=== PATIENT | male | born 1970 | race American Indian/Alaskan Native ===

== ENCOUNTER 2020-09-20 22:44 | Inpatient (IN) | payer MEDICAID, OTHER ==
[2020-09-20] MEDS ORDERED: SODIUM CHLORIDE 0.9% 1000 ML 1,000 ML IV ONE (22:58)
--- NOTE | 2020-09-20 22:58 | Emergency Department Report ---
ED CPR HPI - General Stated Complaint: CARDIAC ARREST Time Seen by Provider: 09/20/20 22:44 Source: EMS Mode of arrival: Stretcher Limitations: Altered Mental Status, Physical Limitation - History of Present Illness Initial Comments: Patient is a 50-year-old male that presents emergency room in cardiac arrest. Patient brought in by EMS. EMS states that approximately 45 minutes prior to arrival the patient collapsed in his bathroom after grabbing his chest. Patient has a cardiac history. Patient was intubated by EMS. EMS gave multiple rounds of medications. CPR was started approximately 10 minutes after the patient collapsed. MD Complaint: stopped breathing Place: home Bystander CPR Performed: No AED Applied by Bystander/Mobile Sales Consultant: No Shock Advised: No Initial Findings in the Field: unresponsive, no respirations, no pulse ROSC in the Field: No Associated Injuries: No Associated Symptoms: chest pain Treatments Prior to Arrival: intubation, BMV, chest compressions, epinephrine mgs #, sodium bicarbonate - Related Data Home Medications Medication Instructions Recorded Confirmed Last Taken Furosemide [Lasix] 40 mg PO QDAY 09/21/20 09/21/20 Unknown Simvastatin 20 mg PO QDAY 09/21/20 09/21/20 Unknown amLODIPine [Norvasc] 5 mg PO DAILY 09/21/20 09/21/20 Unknown carvediloL [Coreg] 25 mg PO BID 09/21/20 09/21/20 Unknown lisinopriL [Zestril TAB] 40 mg PO QDAY 09/21/20 09/21/20 Unknown Allergies Allergy/AdvReac Type Severity Reaction Status Date / Time No Known Allergies Allergy Unverified 09/20/20 23:08 ED Review of Systems ROS: Stated complaint: CARDIAC ARREST Other details as noted in HPI Comment: Unobtainable due to pts medical conditions ED Past Medical Hx - Past Medical History Previous Medical History?: Yes Hx Hypertension: Yes Hx Congestive Heart Failure: Yes - Surgical History Past Surgical History?: No - Family History Family history: no significant - Social History Smoking Status: Unknown if ever smoked Substance Use Type: None - Medications Home Medications: Home Medications Medication Instructions Recorded Confirmed Last Taken Type Furosemide [Lasix] 40 mg PO QDAY 09/21/20 09/21/20 Unknown History Simvastatin 20 mg PO QDAY 09/21/20 09/21/20 Unknown History amLODIPine [Norvasc] 5 mg PO DAILY 09/21/20 09/21/20 Unknown History carvediloL [Coreg] 25 mg PO BID 09/21/20 09/21/20 Unknown History lisinopriL [Zestril TAB] 40 mg PO QDAY 09/21/20 09/21/20 Unknown History ED Physical Exam - General Limitations: Altered Mental Status, Physical Limitation General appearance: other - Head Head exam: Present: atraumatic, normocephalic - Eye Eye exam: Present: other (Pupils fixed and dilated) - Respiratory Respiratory exam: Present: other (Patient intubated by EMS and placement verified with bilateral breath sounds.) - Cardiovascular Cardiovascular Exam: Present: other (No pulse noted) - GI/Abdominal GI/Abdominal exam: Present: soft - Rectal Rectal exam: Present: deferred - Extremities Exam Extremities exam: Present: normal inspection - Psychiatric Psychiatric exam: Present: normal affect - Skin Skin exam: Present: warm, dry, intact. Absent: rash ED Course Vital Signs 09/20/20 09/20/20 09/20/20 22:50 23:00 23:10 Pulse Rate 111 H 40 L 127 H Respiratory 31 H 20 18 Rate Blood Pressure 118/97 140/115 94/57 O2 Sat by Pulse 100 100 Oximetry 09/20/20 09/20/20 09/20/20 23:21 23:30 23:41 Pulse Rate 116 H 131 H 131 H Respiratory 10 L 11 L 13 Rate Blood Pressure 41/24 54/36 63/32 O2 Sat by Pulse 99 Oximetry 09/20/20 09/20/20 09/21/20 23:46 23:51 00:01 Pulse Rate 132 H 133 H 139 H Respiratory 15 16 Rate Blood Pressure 56/37 56/37 O2 Sat by Pulse 100 100 Oximetry 09/21/20 09/21/20 09/21/20 00:11 00:21 00:31 Pulse Rate 132 H 144 H 141 H Respiratory 17 20 19 Rate Blood Pressure 56/37 56/37 64/31 O2 Sat by Pulse 80 L 90 76 L Oximetry 09/21/20 09/21/20 09/21/20 00:41 00:51 01:01 Pulse Rate 138 H 136 H 134 H Respiratory 21 22 18 Rate Blood Pressure 118/49 103/81 158/93 O2 Sat by Pulse 64 L 68 L 40 L Oximetry 09/21/20 09/21/20 09/21/20 01:10 01:21 01:30 Pulse Rate 130 H 129 H 120 H Respiratory 27 H 25 H 26 H Rate Blood Pressure 213/160 186/76 173/136 O2 Sat by Pulse 100 92 Oximetry 09/21/20 09/21/20 09/21/20 01:41 01:51 02:00 Pulse Rate 113 H 100 H 103 H Respiratory 27 H 27 H 28 H Rate Blood Pressure 86/58 120/77 103/72 O2 Sat by Pulse 98 98 100 Oximetry 09/21/20 09/21/20 09/21/20 02:11 02:20 02:31 Pulse Rate 106 H 105 H 105 H Respiratory 25 H 27 H 27 H Rate Blood Pressure 76/57 102/76 102/81 O2 Sat by Pulse 100 Oximetry 09/21/20 09/21/20 09/21/20 02:40 02:50 03:00 Pulse Rate 102 H 105 H 101 H Respiratory 28 H 28 H 29 H Rate Blood Pressure 124/91 117/95 133/89 O2 Sat by Pulse Oximetry 09/21/20 03:11 Pulse Rate 106 H Respiratory 27 H Rate Blood Pressure 127/91 O2 Sat by Pulse 97 Oximetry - Reevaluation(s) Reevaluation #1: Patient arrived via EMS. Prior to arrival, a radio report was received from EMS. [id number] report received again from EMS. Patient intubated by EMS. Patient was transferred to our stretcher, CPR was continued. Patient was given epi and calcium. 09/20/20 22:41 Patient has spontaneous return of circulation. Code ran in accordance with ACLS guidelines. See code note. 09/20/20 22:45 Reevaluation #2: Patient went into cardiac arrest again. Patient given epi. 09/20/20 23:03 Patient had spontaneous return of circulation. Patient placed on a Levophed drip. 09/20/20 23:05 Reevaluation #3: Patient has a pulse. Patient blood pressure still low. Patient was placed on epi drip. Patient is on maxed Levophed 09/20/20 23:18 Reevaluation #4: Patient's blood pressure still low. Patient on dopamine drip and Levophed and epi. Ulysses-Synephrine will be added. 09/20/20 23:35 Reevaluation #5: Patient's blood pressure is still low but patient is maxed out on 4 drips. 09/21/20 00:01 Patient to be admitted to the hospitalist service. 09/21/20 00:29 Dobutamine was never started. Patient blood pressure started to improve. Patient will have a central line placed. I discussed case with family. Family updated with situation. 09/21/20 02:04 - Consultations Consultation #1: Hospitalist consulted for admission. Hospitalist to admit patient. 09/21/20 00:30 - Central Line Placement Right Femoral Consent Obtained: emergent situation Time Out Performed: Yes Patient Placed on Monitor/Pulse Ox: Yes Prep: mask, gown, gloves Central Line Prep: Chlorhexidine scrub, sterile drapes applied Ultrasound Used for Placement: Yes Central Line Lumen Inserted: triple Reason for Insertion: Emergency Venous Access Bloods Obtained for Lab: Yes Central Line Position: good blood return, all ports aspirated, flus, sutured in place with 2-0 Dressing Applied: Tegaderm Patient Tolerated Procedure: well, no complications Complications: none Additional Comments: Central Venous Line Placement: Indication: Hemodynamic monitoring/Intravenous access A time-out was completed verifying correct patient, procedure, site, positioning, and special equipment if applicable. The patient was placed in a dependent position appropriate for central line placement based on the vein to be cannulated. The patients right groin was prepped and draped in sterile fashion. An ultrasound was used in a sterile fashion to identify vasculature. A triple lumen Cordis catheter was introduced into the the common femoral vein using the Seldinger technique and under ultrasound guidance. The catheter was threaded smoothly over the guide wire and appropriate blood return was obtained. Each lumen of the catheter was evacuated of air and flushed with sterile saline. The catheter was then sutured in place to the skin and a sterile dressing applied. Perfusion to the extremity distal to the point of catheter insertion was checked and found to be adequate. Estimated Blood Loss: minimal The patient tolerated the procedure well and there were no complications. - IO Right Tibia Consent Obtained: emergent situation Time Out Performed: Yes IO Instrument Used to Penetrate the Cortex: battery powered IO drill Patient Tolerated Procedure: well, no complications Complications: none ED Medical Decision Making - Lab Data Result diagrams: 09/20/20 23:02 09/20/20 23:02 - EKG Data -: EKG Interpreted by Me EKG shows normal: sinus rhythm, axis, intervals, QRS complexes, ST-T waves Rate: tachycardia - Radiology Data Radiology results: report reviewed, image reviewed interpreted by me: First chest x-ray: No pneumonia, no pneumothorax, ET tube high., no osseous findings, CHEST 1 VIEW INDICATION / CLINICAL INFORMATION: Chest Pain. COMPARISON: None available. FINDINGS: SUPPORT DEVICES: The tip of the endotracheal tube is high within the trachea, approximately 11 cm above the level of the gregorio. HEART / MEDIASTINUM: Borderline heart size. LUNGS / PLEURA: No significant pulmonary or pleural abnormality. No pneumothorax. ADDITIONAL FINDINGS: No significant additional findings. IMPRESSION: 1. Endotracheal tube high within the trachea. Recommend advancement by approximately 6-8 cm for more optimal positioning. CHEST 1 VIEW INDICATION / CLINICAL INFORMATION: et. COMPARISON: Chest radiograph one day prior FINDINGS: SUPPORT DEVICES: The endotracheal tube has been slightly advanced, with the tip now terminating 8 cm above the level of the gregorio. HEART / MEDIASTINUM: Stable. LUNGS / PLEURA: No significant pulmonary or pleural abnormality. No pneumothorax. ADDITIONAL FINDINGS: No significant additional findings. IMPRESSION: 1. Endotracheal tube now terminates 8 cm above the level of the gregorio. This could be advanced another 3 cm for more optimal positioning. - Medical Decision Making Patient is a 50-year-old male who presents emergency room for cardiac arrest. Patient had spontaneous return of circulation in the ER. Patient arrested again and again had spontaneous return of circulation. Code ran accordance with ACLS guidelines. See code notes. Patient had labs done which were consistent with UTI and renal failure. Patient given fluids. Patient also required pressors. Patient's blood pressure eventually improved on pressors and a central line was placed. Prior to central line, for emergency access a right IO was placed in the tibia. Family updated with scenario throughout the stay in the ER. Patient admitted to the hospital service for further evaluation treatment. Critical care time documented due to the multiple reassessments, prolonged time at the bedside, interpretation of diagnostics and labs. - Differential Diagnosis Cardiac arrest, PR, PE, hypotension, respiratory failure, Critical Care Time: Yes Critical care time in (mins) excluding proc time.: 80 Critical care attestation.: If time is entered above; I have spent that time in minutes in the direct care of this critically ill patient, excluding procedure time. Critical Care Time: 80 minutes ED Disposition Clinical Impression: Cardiac arrest Hypotension Qualifiers: Hypotension type: unspecified hypotension type Qualified Code(s): I95.9 - Hypotension, unspecified Renal failure Qualifiers: Renal failure chronicity: acute Acute renal failure type: unspecified Qualified Code(s): N17.9 - Acute kidney failure, unspecified Respiratory failure Qualifiers: Chronicity: acute Respiratory failure complication: hypoxia Qualified Code(s): J96.01 - Acute respiratory failure with hypoxia UTI (urinary tract infection) Qualifiers: Urinary tract infection type: acute cystitis Hematuria presence: with hematuria Qualified Code(s): N30.01 - Acute cystitis with hematuria Disposition: OP ADMIT IP TO THIS HOSP Is pt being admited?: Yes Does the pt Need Aspirin: No Condition: Critical Time of Disposition: 01:13
[2020-09-20] MEDS ORDERED: MINERAL OIL/PETROLATUM, WHITE OPHTH OINT 3.5 GM OU PRN (22:59)
[2020-09-20] MEDS ORDERED: LIP THERAPY VASELINE TP PRN (22:59)
[2020-09-20] MEDS ORDERED: NORepinephrine/NS 4 MG-250 ML 4 MG/250 ML BAG IV ONE (23:08)
[2020-09-20] MEDS ORDERED: EPINEPHrine 1 MG/1 ML 8 MG in SODIUM CHLORIDE 0.9% 250ML 242 ML IV ONE (23:08)
[2020-09-20] MEDS: NORepinephrine/NS 4 MG-250 ML 4 MG/250 ML BAG IV SCH (23:12)
[2020-09-20] MEDS: ASPIRIN 300 MG RECT SUPP PR ONE (23:16)
[2020-09-20 23:26] LABS: Hematocrit 41.9 % (35.5-45.6); Hemoglobin 13.6 gm/dl (11.8-15.2); Mean Corpuscular HGB Conc 33 % (32-34); Mean Corpuscular Volume 96 fl (84-94); Platelet Count 157 K/mm3 (140-440); Red Blood Count 4.38 M/mm3 (3.65-5.03); Red Cell Distribution Width 15.8 % (13.2-15.2)
[2020-09-20] MEDS ORDERED: DOPamine/D5W 800 MG/250 ML 800 MG/250 ML BAG IV ONE (23:31)
[2020-09-20] MEDS ORDERED: PHENYLEPHRINE 100 MG in SODIUM CHLORIDE 0.9% 90 ML IV ONE (23:33)
[2020-09-20 23:39] LABS: INR 1.14 (0.87-1.13)
[2020-09-20 23:40] LABS: Partial Thromboplastin Time 27.7 Sec. (24.2-36.6)
[2020-09-20 23:45] LABS: Albumin 4.1 g/dL (3.9-5); Calcium 10.3 mg/dL (8.4-10.2)
[2020-09-21] MEDS: ASPIRIN 300 MG RECT SUPP PR ONE (00:03)
--- NOTE | 2020-09-21 00:25 | XRay Report ---
CHEST 1 VIEW INDICATION / CLINICAL INFORMATION: Chest Pain. COMPARISON: None available. FINDINGS: SUPPORT DEVICES: The tip of the endotracheal tube is high within the trachea, approximately 11 cm abo ve the level of the gregorio. HEART / MEDIASTINUM: Borderline heart size. LUNGS / PLEURA: No significant pulmonary or pleural abnormality. No pneumothorax. ADDITIONAL FINDINGS: No significant additional findings. IMPRESSION: 1. Endotracheal tube high within the trachea. Recommend advancement by approximately 6-8 cm for more optimal positioning. Signer Name: Miriam Arroyo MD Signed: 09/21/2020 12:20 AM Workstation Name: [email or web address]
[2020-09-21] MEDS ORDERED: DOBUTamine/D5W 500 MG/250 ML 500 MG/250 ML BAG IV ONE (00:35)
[2020-09-21 00:46] LABS: Cannabinoid Screen,Urine PRESUMPTIVE POSITIVE
[2020-09-21 00:50] LABS: Bacteria,Urine 2+ /HPF (Negative); Bilirubin,Urine NEG (Negative); Blood,Urine LG (Negative); Color,Urine Yellow (Yellow); Mucus,Urine FEW /HPF; Sperm,Urine 1+ /HPF (NP); Urobilinogen,Urine < 2.0 mg/dL (<2.0)
[2020-09-21 00:51] LABS: Protein,Urine >500 mg/dL (Negative)
[2020-09-21] MEDS ORDERED: SODIUM CHLORIDE 0.9% 1000 ML 1,000 ML IV ONE (01:04)
[2020-09-21] MEDS ORDERED: cefTRIAXone/NS 2 GM/100 ML 2 GM/100 ML BAG IV ONE (01:10)
[2020-09-21 01:22] LABS: Total Cells Counted 100
[2020-09-21 01:23] LABS: RBC Morphology Normal
[2020-09-21] MEDS ORDERED: ONDANSETRON 4 MG/2 ML INJ IV PRN (01:24)
[2020-09-21] MEDS ORDERED: SODIUM CHLORIDE 0.9% 1000 ML 1,000 ML IV SCH ×2 (01:30→11:15)
--- NOTE | 2020-09-21 01:35 | History and Physical Report ---
History of Present Illness Date of examination: 09/21/20 Date of admission: 09/21/2020 Chief complaint: Cardiac Arrest History of present illness: 50-year-old -[place] male brought to the emergency room today by EMS in cardiac arrest. Patient was said to have collapsed in the bathroom after grabbing his chest about 45 minutes prior to arrival in the emergency room. He is known to have history of hypertension. Patient unable to give any history as he is currently intubated and sedated. Upon arrival in the emergency room patient was found to be hypotensive and was subsequently started on pressors with significant improvement in his blood pressure. Work-up in the emergency room reveals a lactic acidosis of 8.7, initial troponin was within normal limits at 0.023 however subsequent troponin level was elevated at 0.865. No obvious ischemic changes on EKG. UDS was positive for marijuana. Urinalysis was significant for UTI. BUN and creatinine was elevated at 26 and 2.1. Patient currently intubated and admitted into the intensive care unit status post cardiac arrest, UTI, JAMEY, hypotension and lactic acidosis. Past History Past Medical History: heart failure, hypertension Past Surgical History: Other (Unknown) Social history: other (Unknown) Family history: other (Unknown) Medications and Allergies Allergies Allergy/AdvReac Type Severity Reaction Status Date / Time No Known Allergies Allergy Unverified 09/20/20 23:08 Home Medications Medication Instructions Recorded Confirmed Last Taken Type Furosemide [Lasix] 40 mg PO QDAY 09/21/20 09/21/20 Unknown History Simvastatin 20 mg PO QDAY 09/21/20 09/21/20 Unknown History amLODIPine [Norvasc] 5 mg PO DAILY 09/21/20 09/21/20 Unknown History carvediloL [Coreg] 25 mg PO BID 09/21/20 09/21/20 Unknown History lisinopriL [Zestril TAB] 40 mg PO QDAY 09/21/20 09/21/20 Unknown History Active Meds: Active Medications Heparin Sodium (Porcine) (Heparin 5,000 Unit/1 Ml Vial) 5,000 unit SUB-Q Q8HR PATSY Hydrophilic Ointment (Lip Therapy Vaseline) 1 applic TP Q2HR PRN PRN Reason: Dry Lips Epinephrine 8 mg/ Sodium (Chloride) 250 mls @ 3.75 mls/hr IV TITR ONE; Protocol Stop: 09/23/20 17:47 Norepinephrine (Levophed Drip 4 Mg/Ns 250 Ml) 4 mg in 250 mls @ 7.5 mls/hr IV TITR PATSY; Protocol Phenylephrine HCl 100 mg/ (Sodium Chloride) 100 mls @ 3 mls/hr IV TITR ONE; Protocol Stop: 09/22/20 08:52 Dobutamine HCl/Dextrose (Dobutrex Drip 500mg/D5w 250ml) 500 mg in 250 mls @ 5.4 mls/hr IV TITR ONE; Protocol Stop: 09/22/20 22:52 Sodium Chloride (Nacl 0.9% 1000 Ml) 1,000 mls @ 999 mls/hr IV BOLUS ONE Stop: 09/21/20 02:04 Ceftriaxone Sodium (Rocephin/Ns 2 Gm/100 Ml) 2 gm in 100 mls @ 200 mls/hr IV ONCE ONE; Protocol Stop: 09/21/20 01:39 Sodium Chloride (Nacl 0.9% 1000 Ml) 1,000 mls @ 125 mls/hr IV DIRECT PATSY Multi-Ingred Cream/Lotion/Oil/Oint (Mineral Oil/Petrolatum, White Ophth Oint 3.5 Gm) 1 applic OU Q4HR PRN PRN Reason: Dry Eye(s) Ondansetron HCl (Ondansetron 4 Mg/2 Ml Inj) 4 mg IV Q8H PRN PRN Reason: Nausea And Vomiting Sodium Chloride (Sodium Chloride 0.9% 10 Ml Flush Syringe) 10 ml IV BID PATSY Sodium Chloride (Sodium Chloride 0.9% 10 Ml Flush Syringe) 10 ml IV PRN PRN PRN Reason: LINE FLUSH Review of Systems ROS unobtainable: due to endotracheal tube Exam - Constitutional Vitals: Temp Pulse Resp BP Pulse Ox 132 H 100 09/20/20 23:46 09/20/20 23:46 General appearance: Present: well-nourished, other (Intubated) - EENT Eyes: Present: PERRL, EOM intact. Absent: scleral icterus ENT: hearing intact, clear oral mucosa, dentition normal - Neck Neck: Present: supple, normal ROM - Respiratory Respiratory effort: normal Respiratory: bilateral: CTA - Cardiovascular Rhythm: regular Heart Sounds: Present: S1 & S2. Absent: gallop, systolic murmur, diastolic murmur, rub, click - Extremities Extremities: no ischemia, pulses intact, pulses symmetrical, No edema, Full ROM Peripheral Pulses: within normal limits - Abdominal General gastrointestinal: Present: soft, non-tender, non-distended, normal bowel sounds. Absent: mass - Integumentary Integumentary: Present: clear, warm, dry, normal turgor. Absent: rash - Musculoskeletal Musculoskeletal: strength equal bilaterally - Psychiatric Psychiatric: cooperative - Neurologic Neurologic: CNII-XII intact, no focal deficits, moves all extremities, other (Intubated and Sedated.) HEART Score - HEART Score Troponin: Troponin T 0.023 ng/mL (0.00-0.029) 09/20/20 23:02 Results - Labs CBC & Chem 7: 09/20/20 23:02 09/20/20 23:02 Labs: Abnormal lab results 09/20/20 09/20/20 09/20/20 Range/Units 23:02 23:02 23:02 MCV 96 H (84-94) fl RDW 15.8 H (13.2-15.2) % Seg Neuts % (Manual) 34.0 L (40.0-70.0) % Lymphocytes % (Manual) 57.0 H (13.4-35.0) % INR 1.14 H (0.87-1.13) Carbon Dioxide 21 L (22-30) mmol/L BUN 26 H (9-20) mg/dL Creatinine 2.1 H (0.8-1.3) mg/dL Glucose 227 H (75-100) mg/dL POC Glucose (70-105) mg/dL Calcium 10.3 H (8.4-10.2) mg/dL AST 59 H (5-40) units/L Urine WBC (Auto) (0.0-6.0) /HPF 09/20/20 09/20/20 Range/Units 23:15 23:35 MCV (84-94) fl RDW (13.2-15.2) % Seg Neuts % (Manual) (40.0-70.0) % Lymphocytes % (Manual) (13.4-35.0) % INR (0.87-1.13) Carbon Dioxide (22-30) mmol/L BUN (9-20) mg/dL Creatinine (0.8-1.3) mg/dL Glucose (75-100) mg/dL POC Glucose 197 H (70-105) mg/dL Calcium (8.4-10.2) mg/dL AST (5-40) units/L Urine WBC (Auto) 47.0 H (0.0-6.0) /HPF Assessment and Plan - Patient Problems (1) Cardiac arrest Current Visit: Yes Status: Acute Plan to address problem: Patient successfully resuscitated, intubated and sedated. Will monitor closely in the intensive care unit. Consult placed to cardiology and certified juvenile probation officer for further evaluation and recommendation. (2) Respiratory failure Current Visit: Yes Status: Acute Qualifiers: Chronicity: acute Respiratory failure complication: hypoxia Qualified Code(s): J96.01 - Acute respiratory failure with hypoxia Plan to address problem: Patient intubated and sedated. Will monitor ABG. (3) Hypotension Current Visit: Yes Status: Acute Qualifiers: Hypotension type: unspecified hypotension type Qualified Code(s): I95.9 - Hypotension, unspecified (4) Renal failure Current Visit: Yes Status: Acute Qualifiers: Renal failure chronicity: acute Acute renal failure type: unspecified Qualified Code(s): N17.9 - Acute kidney failure, unspecified Plan to address problem: Patient placed on IV fluid. Baseline BUN and creatinine unknown We will place consult to nephrology for evaluation. (5) UTI (urinary tract infection) Current Visit: Yes Status: Acute Qualifiers: Urinary tract infection type: acute cystitis Hematuria presence: with hematuria Qualified Code(s): N30.01 - Acute cystitis with hematuria Plan to address problem: Patient placed on empiric IV antibiotics. (6) DVT prophylaxis Current Visit: Yes Status: Acute Plan to address problem: Patient currently on anticoagulation. (7) Full code status Current Visit: Yes Status: Acute Plan to address problem: Patient is full code.
[2020-09-21 01:42] LABS: Amphetamine Screen,Urine PRESUMPTIVE NEGATIVE; Benzodiazepines Screen,Urine PRESUMPTIVE NEGATIVE; Cocaine Screen,Urine PRESUMPTIVE NEGATIVE; Methadone Screen,Urine PRESUMPTIVE NEGATIVE; Opiate Screen,Urine PRESUMPTIVE NEGATIVE
[2020-09-21 02:27] LABS: ABG Base Excess -8.8 mmol/L (-2.0-3.0); ABG HCO3 17.7 mmol/L (20.0-26.0); ABG Methemoglobin 0.6 % (0.0-1.5); ABG Oxygen Saturation 99.4 % (95.0-99.0); ABG PCO2 40.5 mm Hg; ABG PH 7.258 pH Units (7.350-7.450); ABG PO2 244.1 mm Hg (80.0-90.0)
--- NOTE | 2020-09-21 02:33 | XRay Report ---
CHEST 1 VIEW INDICATION / CLINICAL INFORMATION: et. COMPARISON: Chest radiograph one day prior FINDINGS: SUPPORT DEVICES: The endotracheal tube has been slightly advanced, with the tip now terminating 8 cm above the level of the gregorio. HEART / MEDIASTINUM: Stable. LUNGS / PLEURA: No significant pulmonary or pleural abnormality. No pneumothorax. ADDITIONAL FINDINGS: No significant additional findings. IMPRESSION: 1. Endotracheal tube now terminates 8 cm above the level of the gregorio. This could be advanced anothe r 3 cm for more optimal positioning. Signer Name: Miriam Arroyo MD Signed: 09/21/2020 2:29 AM Workstation Name: [id number]
[2020-09-21 03:30] LABS: Chol/HDL Ratio 2.53 %
[2020-09-21] MEDS: NORepinephrine/NS 4 MG-250 ML 4 MG/250 ML BAG IV SCH ×4 (04:00→11:01)
[2020-09-21] MEDS ORDERED: DEXTROSE 50% IN WATER (25GM) 50 ML SYRINGE IV ONE ×4 (04:28→08:10)
[2020-09-21] MEDS: HEPARIN 5,000 UNIT/1 ML VIAL SUB-Q SCH ×3 (04:50→21:40)
[2020-09-21] MEDS ORDERED: DOBUTamine/D5W 500 MG/250 ML 500 MG/250 ML BAG IV SCH (05:00)
[2020-09-21] MEDS ORDERED: NORepinephrine/NS 4 MG-250 ML 4 MG/250 ML BAG IV SCH (05:00)
[2020-09-21] MEDS ORDERED: PHENYLEPHRINE 100 MG in SODIUM CHLORIDE 0.9% 90 ML IV SCH (05:15)
[2020-09-21] MEDS ORDERED: HEPARIN 10,000 UNITS/10 ML VIAL IV PRN ×2 (06:14→09:52)
[2020-09-21] MEDS ORDERED: HEPARIN 10,000 UNITS/10 ML VIAL IV ONE (06:14)
--- NOTE | 2020-09-21 06:58 | Event Note ---
Date: 09/21/20 Attention called to patient who is on admission with cardiac arrest and currently intubated and whose troponin is trending up. Stat CT of the head was requested and will commence on heparin drip if negative. Consult placed to cardiology for evaluation and further recommendation. Will notify incoming hospitalist for follow-up.
[2020-09-21] MEDS ORDERED: HEPARIN/ 0.45% NACL DRIP 25,000 UNIT/500 ML BAG IV SCH ×2 (07:00→10:00)
[2020-09-21 07:39] LABS: Hematocrit 51.3 % (35.5-45.6); Hemoglobin 16.9 gm/dl (11.8-15.2)
[2020-09-21 07:50] LABS: INR 1.31 (0.87-1.13)
[2020-09-21 07:51] LABS: Partial Thromboplastin Time 32.3 Sec. (24.2-36.6)
--- NOTE | 2020-09-21 09:27 | Cat Scan Report ---
CT head/brain wo con INDICATION / CLINICAL INFORMATION: 50 years Male; Cardiac Arrest, Unresponsiveness.. TECHNIQUE: Routine CT head without contrast. All CT scans at this location are performed using CT dos e reduction for ALARA by means of automated exposure control. COMPARISON: None. FINDINGS: BRAIN / INTRACRANIAL CONTENTS: The motion degrades the image quality despite repeat imaging. However, there appears to be milder cerebral white matter disease with subtle foci of decreased attenuation a long the frontal and periventricular and subcortical regions at. The findings are nonspecific though may reflect microvascular angiopathy. The ventricular system is appropriate in size and configuration . There is no clear CT evidence of acute intrarenal hemorrhage or significant mass effect. There is motion artifact as noted above. However, the reyna-white matter differentiation along the remy glia capsular regions appears maintained. Furthermore, there is no clear evidence of significant sulc al effacement on the current exam. ORBITS: No significant abnormality of visualized orbits. SINUSES / MASTOIDS: The patient is intubated. There is near complete opacification of the left maxill elvi sinus at. Scattered opacification is seen within the remaining at paranasal sinuses. CRANIOCERVICAL JUNCTION: No significant abnormality. ADDITIONAL FINDINGS: None. IMPRESSION: 1. The motion degrades the image quality despite repeat imaging. However, there appears to be mild ce rebral white matter disease as described without CT evidence of acute intracranial hemorrhage. Signer Name: Nasim Carvajal MD Signed: 09/21/2020 9:22 AM Workstation Name: [id number]
[2020-09-21] MEDS ORDERED: ASPIRIN EC 325 MG TAB PO SCH (10:00)
[2020-09-21 10:14] LABS: Mean Corpuscular HGB Conc 33 % (32-34); Mean Corpuscular Volume 92 fl (84-94); Platelet Count 205 K/mm3 (140-440); Red Blood Count 5.31 M/mm3 (3.65-5.03); Red Cell Distribution Width 15.7 % (13.2-15.2)
[2020-09-21] MEDS: D5W/0.45% NACL 1,000 ML IV SCH (11:00)
[2020-09-21] MEDS: cefTRIAXone/NS 1 GM/50 ML 1 GM/50 ML BAG IV SCH (11:07)
--- NOTE | 2020-09-21 11:12 | Consultation ---
History of Present Illness - Reason for Consult Consult date: 09/21/20 acute renal failure - History of Present Illness 50-year-old -[place] male brought to the emergency room today by EMS in cardiac arrest. Patient was said to have collapsed in the bathroom after grabbing his chest about 45 minutes prior to arrival in the emergency room. He is known to have history of hypertension. Upon arrival in the emergency room patient was found to be hypotensive and was subsequently started on pressors with significant improvement in his blood pressure. now in the ICU, intubated and sedated, history obtained from chart. renal consult was requested for JAMEY Past History Past Medical History: heart failure, hypertension Past Surgical History: Other (Unknown) Social history: other (Unknown) Family history: other (Unknown) Medications and Allergies Allergies Allergy/AdvReac Type Severity Reaction Status Date / Time No Known Allergies Allergy Unverified 09/20/20 23:08 Home Medications Medication Instructions Recorded Confirmed Last Taken Type Furosemide [Lasix] 40 mg PO QDAY 09/21/20 09/21/20 Unknown History Simvastatin 20 mg PO QDAY 09/21/20 09/21/20 Unknown History amLODIPine [Norvasc] 5 mg PO DAILY 09/21/20 09/21/20 Unknown History carvediloL [Coreg] 25 mg PO BID 09/21/20 09/21/20 Unknown History lisinopriL [Zestril TAB] 40 mg PO QDAY 09/21/20 09/21/20 Unknown History Active Meds: Active Medications Aspirin (Aspirin Ec 325 Mg Tab) 325 mg PO QDAY [facility]SY Hydrophilic Ointment (Lip Therapy Vaseline) 1 applic TP Q2HR PRN PRN Reason: Dry Lips Epinephrine 8 mg/ Sodium (Chloride) 250 mls @ 3.75 mls/hr IV TITR ONE; Protocol Stop: 09/23/20 17:47 Last Titration: 09/21/20 11:03 Dose: 4 mcg/min, 7.5 mls/hr Documented by: Norepinephrine (Levophed Drip 4 Mg/Ns 250 Ml) 4 mg in 250 mls @ 7.5 mls/hr IV TITR PATSY; Protocol Last Admin: 09/21/20 11:01 Dose: 24 mcg/min, 90 mls/hr Documented by: Phenylephrine HCl 100 mg/ (Sodium Chloride) 100 mls @ 3 mls/hr IV TITR ONE; Protocol Stop: 09/22/20 08:52 Last Titration: 09/21/20 05:00 Dose: Infused Documented by: Dobutamine HCl/Dextrose (Dobutrex Drip 500mg/D5w 250ml) 500 mg in 250 mls @ 5.4 mls/hr IV TITR ONE; Protocol Stop: 09/22/20 22:52 Ceftriaxone Sodium (Rocephin/Ns 1 Gm/50 Ml) 1 gm in 50 mls @ 100 mls/hr IV Q24HR PATSY; Protocol Last Admin: 09/21/20 11:07 Dose: 100 mls/hr Documented by: Norepinephrine (Levophed Drip 4 Mg/Ns 250 Ml) 4 mg in 250 mls @ 7.5 mls/hr IV TITR PATSY; Protocol Dobutamine HCl/Dextrose (Dobutrex Drip 500mg/D5w 250ml) 500 mg in 250 mls @ 6. 126 mls/hr IV TITR PATSY; Protocol Phenylephrine HCl 100 mg/ (Sodium Chloride) 100 mls @ 24 mls/hr IV TITR PATSY; Protocol Last Titration: 09/21/20 11:04 Dose: 120 mcg/min, 7.2 mls/hr Documented by: Dextrose/Sodium Chloride (D5/0.45ns) 1,000 mls @ 75 mls/hr IV DIRECT PATSY Last Admin: 09/21/20 11:00 Dose: 75 mls/hr Documented by: Multi-Ingred Cream/Lotion/Oil/Oint (Mineral Oil/Petrolatum, White Ophth Oint 3.5 Gm) 1 applic OU Q4HR PRN PRN Reason: Dry Eye(s) Ondansetron HCl (Ondansetron 4 Mg/2 Ml Inj) 4 mg IV Q8H PRN PRN Reason: Nausea And Vomiting Sodium Chloride (Sodium Chloride 0.9% 10 Ml Flush Syringe) 10 ml IV BID PATSY Last Admin: 09/21/20 11:08 Dose: 10 ml Documented by: Sodium Chloride (Sodium Chloride 0.9% 10 Ml Flush Syringe) 10 ml IV PRN PRN PRN Reason: LINE FLUSH Review of Systems ROS unobtainable: due to endotracheal tube Exam - Vital Signs Vital signs: Vital Signs Pulse Resp BP Pulse Ox 111 H 31 H 118/97 100 09/20/20 22:50 09/20/20 22:50 09/20/20 22:50 09/20/20 22:50 - General Appearance General appearance: sedated on ventilator, intubated Neurologic: other (intubated) Results - Lab Results 09/21/20 07:53 09/21/20 07:53 Most recent lab results ABG pH 7.400 (7.320-7.450) 09/21/20 10:34 ABG pCO2 40.5 mm Hg 09/21/20 02:15 ABG pO2 244.1 mm Hg (80.0-90.0) H 09/21/20 02:15 ABG HCO3 17.7 mmol/L (20.0-26.0) L 09/21/20 02:15 ABG O2 Saturation 99.5 (0-100) 09/21/20 10:34 Calcium 9.0 mg/dL (8.4-10.2) 09/21/20 07:53 Assessment and Plan (1) Cardiac arrest (2) Respiratory failure (3) Hypotension (4) Renal failure JAMEY secondary to ATN will check renal US will check urine lytes will start NS 100 cc/h no indication for HD renally dose meds strict I&O
--- NOTE | 2020-09-21 11:22 | Consultation ---
History of Present Illness Consult date: 09/21/20 Reason for consult: other (Cardiac Arrest) History of present illness: 50 y/o male out of hospital cardiac arrest for 45 min before ROSC, now unr esponsive. Past History Past Medical History: heart failure, hypertension Past Surgical History: Other (Unknown) Social history: other (Unknown) Family history: other (Unknown) Medications and Allergies Allergies Allergy/AdvReac Type Severity Reaction Status Date / Time No Known Allergies Allergy Unverified 09/20/20 23:08 Home Medications Medication Instructions Recorded Confirmed Last Taken Type Furosemide [Lasix] 40 mg PO QDAY 09/21/20 09/21/20 Unknown History Simvastatin 20 mg PO QDAY 09/21/20 09/21/20 Unknown History amLODIPine [Norvasc] 5 mg PO DAILY 09/21/20 09/21/20 Unknown History carvediloL [Coreg] 25 mg PO BID 09/21/20 09/21/20 Unknown History lisinopriL [Zestril TAB] 40 mg PO QDAY 09/21/20 09/21/20 Unknown History Active Meds: Active Medications Aspirin (Aspirin Ec 325 Mg Tab) 325 mg PO QDAY [facility] Hydrophilic Ointment (Lip Therapy Vaseline) 1 applic TP Q2HR PRN PRN Reason: Dry Lips Epinephrine 8 mg/ Sodium (Chloride) 250 mls @ 3.75 mls/hr IV TITR ONE; Protocol Stop: 09/23/20 17:47 Last Titration: 09/21/20 11:03 Dose: 4 mcg/min, 7.5 mls/hr Documented by: Norepinephrine (Levophed Drip 4 Mg/Ns 250 Ml) 4 mg in 250 mls @ 7.5 mls/hr IV TITR PATSY; Protocol Last Admin: 09/21/20 11:01 Dose: 24 mcg/min, 90 mls/hr Documented by: Phenylephrine HCl 100 mg/ (Sodium Chloride) 100 mls @ 3 mls/hr IV TITR ONE; Protocol Stop: 09/22/20 08:52 Last Titration: 09/21/20 05:00 Dose: Infused Documented by: Dobutamine HCl/Dextrose (Dobutrex Drip 500mg/D5w 250ml) 500 mg in 250 mls @ 5.4 mls/hr IV TITR ONE; Protocol Stop: 09/22/20 22:52 Ceftriaxone Sodium (Rocephin/Ns 1 Gm/50 Ml) 1 gm in 50 mls @ 100 mls/hr IV Q24HR PATSY; Protocol Last Admin: 09/21/20 11:07 Dose: 100 mls/hr Documented by: Norepinephrine (Levophed Drip 4 Mg/Ns 250 Ml) 4 mg in 250 mls @ 7.5 mls/hr IV TITR PATSY; Protocol Dobutamine HCl/Dextrose (Dobutrex Drip 500mg/D5w 250ml) 500 mg in 250 mls @ 6.126 mls/hr IV TITR PATSY; Protocol Phenylephrine HCl 100 mg/ (Sodium Chloride) 100 mls @ 24 mls/hr IV TITR PATSY; Protocol Last Titration: 09/21/20 11:04 Dose: 120 mcg/min, 7.2 mls/hr Documented by: Dextrose/Sodium Chloride (D5/0.45ns) 1,000 mls @ 75 mls/hr IV DIRECT PATSY Last Admin: 09/21/20 11:00 Dose: 75 mls/hr Documented by: Sodium Chloride (Nacl 0.9% 1000 Ml) 1,000 mls @ 100 mls/hr IV DIRECT PATSY Multi-Ingred Cream/Lotion/Oil/Oint (Mineral Oil/Petrolatum, White Ophth Oint 3.5 Gm) 1 applic OU Q4HR PRN PRN Reason: Dry Eye(s) Ondansetron HCl (Ondansetron 4 Mg/2 Ml Inj) 4 mg IV Q8H PRN PRN Reason: Nausea And Vomiting Sodium Chloride (Sodium Chloride 0.9% 10 Ml Flush Syringe) 10 ml IV BID [facility] Last Admin: 09/21/20 11:08 Dose: 10 ml Documented by: Sodium Chloride (Sodium Chloride 0.9% 10 Ml Flush Syringe) 10 ml IV PRN PRN PRN Reason: LINE FLUSH Review of Systems All systems: negative Physical Examination Vital signs: Vital Signs Pulse Resp BP Pulse Ox 111 H 31 H 118/97 100 09/20/20 22:50 09/20/20 22:50 09/20/20 22:50 09/20/20 22:50 General appearance: comatose Eyes: non-icteric ENT: other (orally intubated and sedated) Neck: supple Effort: normal Ascultation: Bilateral: clear Percussion: Bilateral: not dull Tactile fremitus: Bilateral: normal Cardiovascular: other (sinus tachycardia) Gastrointestinal: normoactive bowel sounds, soft Results - Laboratory Findings CBC and BMP: 09/21/20 07:53 09/21/20 07:53 ABG ABG pH 7.400 (7.320-7.450) 09/21/20 10:34 POC ABG pCO2 25.9 mmHg (32.0-48.0) L 09/21/20 10:34 ABG pCO2 40.5 mm Hg 09/21/20 02:15 POC ABG pO2 196.9 mmHg (83-108) H 09/21/20 10:34 ABG pO2 244.1 mm Hg (80.0-90.0) H 09/21/20 02:15 POC ABG HCO3 15.7 09/21/20 10:34 ABG O2 Saturation 99.5 (0-100) 09/21/20 10:34 PT/INR, D-dimer PT 16.3 Sec. (12.2-14.9) H 09/21/20 07:03 INR 1.31 (0.87-1.13) H 09/21/20 07:03 Abnormal lab findings: Abnormal Labs 09/20/20 09/20/20 09/20/20 23:02 23:02 23:02 WBC RBC Hgb Hct MCV 96 H RDW 15.8 H Seg Neuts % (Manual) 34.0 L Lymphocytes % (Manual) 57.0 H PT INR 1.14 H ABG pH POC ABG pCO2 POC ABG pO2 ABG pO2 ABG HCO3 ABG O2 Saturation ABG Base Excess ABG Oxyhemoglobin ABG Potassium ABG Chloride ABG Glucose Sodium Potassium Chloride Carbon Dioxide 21 L BUN 26 H Creatinine 2.1 H Glucose 227 H POC Glucose Lactic Acid Calcium 10.3 H AST 59 H Troponin T HDL Cholesterol Arterial Blood Glucose Urine WBC (Auto) 09/20/20 09/20/20 09/21/20 23:15 23:35 01:20 WBC RBC Hgb Hct MCV RDW Seg Neuts % (Manual) Lymphocytes % (Manual) PT INR ABG pH POC ABG pCO2 POC ABG pO2 ABG pO2 ABG HCO3 ABG O2 Saturation ABG Base Excess ABG Oxyhemoglobin ABG Potassium ABG Chloride ABG Glucose Sodium Potassium Chloride Carbon Dioxide BUN Creatinine Glucose POC Glucose 197 H Lactic Acid 8.70 H* Calcium AST Troponin T HDL Cholesterol Arterial Blood Glucose Urine WBC (Auto) 47.0 H 09/21/20 09/21/20 09/21/20 02:01 02:15 04:25 WBC RBC Hgb Hct MCV RDW Seg Neuts % (Manual) Lymphocytes % (Manual) PT INR ABG pH 7.258 L POC ABG pCO2 POC ABG pO2 ABG pO2 244.1 H ABG HCO3 17.7 L ABG O2 Saturation 99.4 H ABG Base Excess -8.8 L ABG Oxyhemoglobin ABG Potassium ABG Chloride ABG Glucose Sodium Potassium Chloride Carbon Dioxide BUN Creatinine Glucose POC Glucose 65 L Lactic Acid Calcium AST Troponin T 0.865 H* D HDL Cholesterol 60 H Arterial Blood Glucose Urine WBC (Auto) 09/21/20 09/21/20 09/21/20 04:34 04:34 07:03 WBC RBC Hgb 16.9 H D Hct 51.3 H D MCV RDW Seg Neuts % (Manual) Lymphocytes % (Manual) PT INR ABG pH POC ABG pCO2 POC ABG pO2 ABG pO2 ABG HCO3 ABG O2 Saturation ABG Base Excess ABG Oxyhemoglobin ABG Potassium ABG Chloride ABG Glucose Sodium Potassium Chloride Carbon Dioxide BUN Creatinine Glucose POC Glucose Lactic Acid 3.00 H* Calcium AST Troponin T 1.880 H* D HDL Cholesterol Arterial Blood Glucose Urine WBC (Auto) 09/21/20 09/21/20 09/21/20 07:03 07:32 07:53 WBC 19.2 H RBC 5.31 H Hgb 16.0 H Hct 49.0 H MCV RDW 15.7 H Seg Neuts % (Manual) Lymphocytes % (Manual) PT 16.3 H INR 1.31 H ABG pH POC ABG pCO2 POC ABG pO2 ABG pO2 ABG HCO3 ABG O2 Saturation ABG Base Excess ABG Oxyhemoglobin ABG Potassium ABG Chloride ABG Glucose Sodium Potassium Chloride Carbon Dioxide BUN Creatinine Glucose POC Glucose 60 L Lactic Acid Calcium AST Troponin T HDL Cholesterol Arterial Blood Glucose Urine WBC (Auto) 09/21/20 09/21/20 09/21/20 07:53 09:30 10:34 WBC RBC Hgb Hct MCV RDW Seg Neuts % (Manual) Lymphocytes % (Manual) PT INR ABG pH POC ABG pCO2 25.9 L POC ABG pO2 196.9 H ABG pO2 ABG HCO3 ABG O2 Saturation ABG Base Excess ABG Oxyhemoglobin 98.4 H ABG Potassium 3.3 L ABG Chloride 113.0 H ABG Glucose 130 H Sodium 146 H Potassium 3.5 L Chloride 109.6 H Carbon Dioxide 20 L BUN 37 H Creatinine 2.8 H Glucose 127 H POC Glucose Lactic Acid 3.00 H* Calcium AST Troponin T HDL Cholesterol Arterial Blood Glucose 130 H Urine WBC (Auto) - Diagnostic Findings Chest x-ray: image reviewed Assessment and Plan 50 y/o male with 45 minute cardiac arrest, now on 3 vasopressors, intubated and not sedated, unresponsive. 1. Echo 2. May need repeat head CT in 48-72 hours 3. Change Fluids to D5 1/2 normal with fsbs q1 hours until 3 consecutive sugars >180 4. Wean Epi off first and then wean off the other pressors. Guarded to poor prognosis. CCT 31 minutes.
[2020-09-21 11:46] LABS: INR 1.24 (0.87-1.13); Partial Thromboplastin Time 30.6 Sec. (24.2-36.6)
--- NOTE | 2020-09-21 13:16 | Consultation ---
History of Present Illness Consult date: 09/21/20 Consult reason: cardiac arrest History of present illness: Patient is a 50-year-old man admitted to the hospital following an out of hospital cardiopulmonary arrest. The details of his resuscitative protocol from the field are not available for review, I do not have any records of what his primary rhythm on first contact with the medical system, but he is reported to have been down for 45 minutes in the field. He is currently in the ICU, unresponsive, pupils fixed, on the ventilator. On cafeteria monitor, he has a sinus tachycardia 115, and currently on a single pressor Levophed. EKG on presentation was a sinus tachycardia with left bundle branch block. Chest x-ray showed severe cardiomegaly, with mild interstitial pulmonary edema. The available records do not report details of any prior cardiac history or cardiac work-up. I placed a phone call to the phone number in the chart for the patient's mother and received no answer. Past History Past Medical History: heart failure, hypertension Social history: other (Unknown) Family history: other (Unknown) Medications and Allergies Allergies Allergy/AdvReac Type Severity Reaction Status Date / Time No Known Allergies Allergy Unverified 09/20/20 23:08 Home Medications Medication Instructions Recorded Confirmed Last Taken Type Furosemide [Lasix] 40 mg PO QDAY 09/21/20 09/21/20 Unknown History Simvastatin 20 mg PO QDAY 09/21/20 09/21/20 Unknown History amLODIPine [Norvasc] 5 mg PO DAILY 09/21/20 09/21/20 Unknown History carvediloL [Coreg] 25 mg PO BID 09/21/20 09/21/20 Unknown History lisinopriL [Zestril TAB] 40 mg PO QDAY 09/21/20 09/21/20 Unknown History Active Meds: Active Medications Aspirin (Aspirin Ec 325 Mg Tab) 325 mg PO QDAY [facility] Hydrophilic Ointment (Lip Therapy Vaseline) 1 applic TP Q2HR PRN PRN Reason: Dry Lips Epinephrine 8 mg/ Sodium (Chloride) 250 mls @ 3.75 mls/hr IV TITR ONE; Protocol Stop: 09/23/20 17:47 Last Titration: 09/21/20 11:50 Dose: 1 mcg/min, 1.875 mls/hr Documented by: Ceftriaxone Sodium (Rocephin/Ns 1 Gm/50 Ml) 1 gm in 50 mls @ 100 mls/hr IV Q24HR PATSY; Protocol Last Admin: 09/21/20 11:07 Dose: 100 mls/hr Documented by: Norepinephrine (Levophed Drip 4 Mg/Ns 250 Ml) 4 mg in 250 mls @ 7.5 mls/hr IV TITR PATSY; Protocol Dobutamine HCl/Dextrose (Dobutrex Drip 500mg/D5w 250ml) 500 mg in 250 mls @ 6.126 mls/hr IV TITR PATSY; Protocol Phenylephrine HCl 100 mg/ (Sodium Chloride) 100 mls @ 24 mls/hr IV TITR PATSY; Protocol Last Titration: 09/21/20 11:31 Dose: 0 mcg/min, 0 mls/hr Documented by: Dextrose/Sodium Chloride (D5/0.45ns) 1,000 mls @ 75 mls/hr IV DIRECT PATSY Last Admin: 09/21/20 11:00 Dose: 75 mls/hr Documented by: Sodium Chloride (Nacl 0.9% 1000 Ml) 1,000 mls @ 100 mls/hr IV DIRECT PATSY Multi-Ingred Cream/Lotion/Oil/Oint (Mineral Oil/Petrolatum, White Ophth Oint 3.5 Gm) 1 applic OU Q4HR PRN PRN Reason: Dry Eye(s) Ondansetron HCl (Ondansetron 4 Mg/2 Ml Inj) 4 mg IV Q8H PRN PRN Reason: Nausea And Vomiting Sodium Chloride (Sodium Chloride 0.9% 10 Ml Flush Syringe) 10 ml IV BID [facility] Last Admin: 09/21/20 11:08 Dose: 10 ml Documented by: Sodium Chloride (Sodium Chloride 0.9% 10 Ml Flush Syringe) 10 ml IV PRN PRN PRN Reason: LINE FLUSH Review of Systems ROS unobtainable: due to endotracheal tube, due to mental status Physical Examination Vital Signs Pulse Resp BP Pulse Ox 111 H 31 H 118/97 100 09/20/20 22:50 09/20/20 22:50 09/20/20 22:50 09/20/20 22:50 General appearance: other (Unresponsive, on the vent) HEENT: Positive: Other (Pupils fixed) Neck: Positive: neck supple Cardiac: Positive: Regular Rhythm Lungs: Positive: Decreased Breath Sounds Neuro: Positive: Weakness (Unresponsive, on the vent) Abdomen: Positive: Soft Male genitourinary: Positive: deferred Skin: Positive: Clear Extremities: Absent: edema Results 09/21/20 07:53 09/21/20 07:53 Cardiac Enzymes 09/20/20 Range/Units 23:02 AST 59 H (5-40) units/L Coagulation 09/20/20 09/21/20 09/21/20 Range/Units 23:02 07:03 10:08 PT 14.5 16.3 H 15.4 H (12.2-14.9) Sec. INR 1.14 H 1.31 H 1.24 H (0.87-1.13) APTT 27.7 32.3 30.6 (24.2-36.6) Sec. Lipids 09/21/20 Range/Units 02:01 Triglycerides 43 (2-149) mg/dL Cholesterol 152 (50-199) mg/dL HDL Cholesterol 60 H (40-59) mg/dL Cholesterol/HDL Ratio 2.53 % CBC 09/20/20 09/21/20 09/21/20 Range/Units 23:02 07:03 07:53 WBC 5.7 19.2 H (4.5-11.0) K/mm3 RBC 4.38 5.31 H (3.65-5.03) M/mm3 Hgb 13.6 16.9 H D 16.0 H (11.8-15.2) gm/dl Hct 41.9 51.3 H D 49.0 H (35.5-45.6) % Plt Count 157 193 205 (140-440) K/mm3 Comprehensive Metabolic Panel 09/20/20 09/21/20 Range/Units 23:02 07:53 Sodium 142 146 H (137-145) mmol/L Potassium 3.6 3.5 L (3.6-5.0) mmol/L Chloride 102.0 109.6 H (98-107) mmol/L Carbon Dioxide 21 L 20 L (22-30) mmol/L BUN 26 H 37 H (9-20) mg/dL Creatinine 2.1 H 2.8 H (0.8-1.3) mg/dL Glucose 227 H 127 H (75-100) mg/dL Calcium 10.3 H 9.0 (8.4-10.2) mg/dL AST 59 H (5-40) units/L ALT 30 (7-56) units/L Alkaline Phosphatase 88 (35-129) units/L Total Protein 7.0 (6.3-8.2) g/dL Albumin 4.1 (3.9-5) g/dL EKG interpretations - Telemetry EKG Rhythm: Sinus Tachycardia (With left bundle branch block) Assessment and Plan - Patient Problems (1) Cardiopulmonary arrest Current Visit: Yes Status: Acute Plan to address problem: Patient has severe cardiomegaly on chest x-ray, underlying left bundle branch block, which suggest an underlying cardiomyopathy resulting in a primary cardiac arrest. We will order an echocardiogram for left ventricular function assessment, continue supportive management. In the setting of a prolonged downtime in the field of 45 minutes, the medium and long-term prognosis is very poor.
--- NOTE | 2020-09-21 13:32 | XRay Report ---
XR abdomen 1V ap INDICATION: OGT placement verification. COMPARISON: None available. FINDINGS: The tip of the NG tube projects over the proximal stomach. Signer Name: Fortunato Mathews MD Signed: 09/21/2020 1:28 PM Workstation Name: [id number]
[2020-09-21 14:45] LABS: Bacteria,Urine 2+ /HPF (Negative); Bilirubin,Urine NEG (Negative); Blood,Urine LG (Negative); Color,Urine Yellow (Yellow); Mucus,Urine FEW /HPF; Urobilinogen,Urine < 2.0 mg/dL (<2.0)
[2020-09-21 14:50] LABS: Creatinine,Urine 60.4 mg/dL (0.1-20.0)
--- NOTE | 2020-09-21 15:10 | Event Note ---
Date: 09/21/20 This is a 50-year-old male with heart failure and hypertension who presents to the emergency department on 09/21 with cardiac arrest after syncopal episode about 45 minutes prior to arrival to the emergency department. Upon arrival to the emergency department patient was found to be hypotensive and subsequently started on pressors with significant improvement in his blood pressure. Work-up in the emergency department reveals lactic acidosis, initial troponin within normal limits however subsequent troponins were elevated, no obvious ischemic changes on EKG, UDS positive for marijuana, urinalysis significant for urinary tract infection, BUN/creatinine slightly elevated 26/21. CXR showed severe cardiomegaly with mild interstitial pulmonary edema. Patient was admitted to the hospital service with consults to CCM, cardiology and nephrology s/p cardiac arrest, UTI, JAMEY, lactic acidosis and hypotension. PE: Neuro: pupils very sluggish to light, no response to painful stimuli, no cough/gag, does not track/focus, GCS 3T HEENT: Normocephalic, pupils very sluggish to light, supple neck, no JVD noted CV: S1 & S2 auscultated, no murmur/gallop auscultated. Peripheral pulses palpable x4 extremities, cap refill less than 3 seconds bilateral upper and lower extremities Respiratory: Intubated via O ETT on mechanical ventilation CMV tidal and 450, rate 12, PEEP 6, 50% FiO2 at the time of examination GI: Nontender nondistended, positive bowel sounds x4 quadrants : rainey catheter in place from ED Skin: CDI Psych: not interactive This is a 50-year-old male with hypertension and heart failure admitted s/p cardiac arrest with JAMEY, UTI, lactic acidosis, hypotension. S/p cardiac arrest Acute hypoxic respiratory failure Acute kidney injury Urinary tract infection Leukocytosis Coagulopathic Hypernatremia Hypokalemia Hyperchloremia Metabolic acidosis Hyperglycemia Lactic acidosis Hypertension -[facility], cardiology, nephrology consulted, appreciate recommendations -Vasopressor support with Levophed, phenyl epinephrine, epinephrine--> wean as tolerated -COVID 19 pcr (-) -09/21 echocardiogram pending -IVF changed to D5 half-normal saline for persistent type hypoglycemia -Accu-Cheks every hour to till three consecutive blood glucose greater than 180 per CCM -Renal ultrasound pending -Urine lites pending -MIVF per nephrology -09/20 CXR shows cardiomegaly -09/21 CT head shows motion degradation of the image quality despite repeat imaging. However, there appears to be mild cerebral white matter disease as described without CT evidence of acute intracranial hemorrhage. -09/21 echocardiogram shows severely dilated left ventricle, the ventricle systolic function severely decreased, borderline concentric left ventricle hypertrophy, severe global hypokinesis of the left ventricle, LVEF 10 to 15%, mild MR, trace TR, RVSP is normal at 12 mmHg, trace pericardial effusion. GI/DVT prophylaxis: PPI, heparin subcu, SCDs to bilateral lower extremities while in bed Disposition: ICU
[2020-09-21] MEDS: ACETAMINOPHEN 325 MG/10.15 ML ORAL LIQD UNIT DOSE FEEDTUBE PRN (16:06)
[2020-09-21] MEDS: ASPIRIN 325 MG TAB PO SCH (16:13)
--- NOTE | 2020-09-21 17:55 | Electrocardiograph Report ---
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
[2020-09-22] MEDS: D5W/0.45% NACL 1,000 ML IV SCH ×2 (00:08→16:20)
--- NOTE | 2020-09-22 06:19 | XRay Report ---
CHEST 1 VIEW INDICATION / CLINICAL INFORMATION: follow up respiratory failure. COMPARISON: Chest radiograph one day prior FINDINGS: SUPPORT DEVICES: The endotracheal tube remains high, approximately 8 cm above the level of the gregorio . Interval placement of an enteric tube coursing beneath the diaphragm with the tip not visualized. HEART / MEDIASTINUM: Stable cardiomegaly LUNGS / PLEURA: No significant pulmonary or pleural abnormality. No pneumothorax. ADDITIONAL FINDINGS: No significant additional findings. IMPRESSION: 1. Endotracheal tube again terminates approximately 8 cm above the level of the gregorio and could be a dvanced by approximately 3 to 4 cm for more optimal positioning. Signer Name: Miriam Arroyo MD Signed: 09/22/2020 6:15 AM Workstation Name: [id number]
[2020-09-22] MEDS ORDERED: SIMPLE SYRUP 15 ML FEEDTUBE PRN ×2 (08:53)
[2020-09-22] MEDS ORDERED: LIPASE 10,500/PROTEASE 25,000/AMYLASE 43,750 (UNITS) DR CAP FEEDTUBE PRN (08:53)
[2020-09-22] MEDS ORDERED: SODIUM BICARBONATE 325 MG TAB FEEDTUBE PRN (08:53)
--- NOTE | 2020-09-22 09:14 | Progress Note ---
Assessment and Plan 50 y/o male with 45 minute cardiac arrest, now on 3 vasopressors, intubated and not sedated, unresponsive. 09/22/20: Echo reveals significant systolic heart failure, likely not new. May have been cause of "collapse". patient does not have defibrillator or life vest. Await cardiology assessment but given mental state, doubt a candidate for any invasive procedures. Blood sugars are stable on D5 1/2 normal saline at 75, but now that off pressors will feed. Will remove central line and obtain midline vs picc. No documentation if mother visited yesterday or not. Will need to call her again to discuss echo results and persistent vegetative state. Likely is anoxic from prolonged downtime. Very very Poor Prognosis. WIll discuss goal directed therapy for CHF (ray, statin, beta db, may spironolactone) 1. Echo 2. May need repeat head CT in 48-72 hours 3. Change Fluids to D5 1/2 normal with fsbs q1 hours until 3 consecutive sugars >180 4. Wean Epi off first and then wean off the other pressors. Guarded to poor prognosis. CCT 31 minutes. Subjective Date of service: 09/22/20 Interval history: Off all pressors. Tachypnic last night, called by Nursing, so I ordered diprovan. Titrated up to 50 now and still no improvement. Down to 25%, no hypoxic and good wave form. ABG consistent. Last Lactic acid was 3.6. ABG most consistent with respiratory alkalosis. Echo done yesterday and reveals EF of 10-15%. Febrile yesterday to 101.9 Objective Vital Signs - 12hr 09/21/20 09/21/20 09/22/20 23:39 23:49 00:00 Temperature 99.9 F H Pulse Rate 121 H 117 H Pulse Rate [ 117 H From Monitor] Respiratory 40 H Rate Blood Pressure 118/85 O2 Sat by Pulse 98 98 Oximetry 09/22/20 09/22/20 09/22/20 03:43 04:00 04:46 Temperature 99.7 F H Pulse Rate 116 H 116 H Pulse Rate [ 116 H From Monitor] Respiratory 39 H Rate Blood Pressure 112/77 O2 Sat by Pulse 98 98 Oximetry 09/22/20 09/22/20 09/22/20 07:57 08:00 08:45 Temperature 100 F H Pulse Rate 118 H 119 H Pulse Rate [ 133 H From Monitor] Respiratory 40 H Rate Blood Pressure 96/71 O2 Sat by Pulse 98 95 Oximetry Constitutional: comatose Eyes: non-icteric ENT: other (orally intubated and sedated) Neck: supple Effort: normal Ascultation: Bilateral: clear Percussion: Bilateral: not dull Tactile fremitus: Bilateral: normal Cardiovascular: other (sinus tachycardia) Gastrointestinal: normoactive bowel sounds, soft CBC and BMP: 09/21/20 07:53 09/21/20 07:53 ABG, PT/INR, D-dimer: ABG ABG pH 7.496 (7.320-7.450) H 09/22/20 03:21 POC ABG pCO2 25.0 mmHg (32.0-48.0) L 09/22/20 03:21 ABG pCO2 40.5 mm Hg 09/21/20 02:15 POC ABG pO2 73.8 mmHg (83-108) L 09/22/20 03:21 ABG pO2 244.1 mm Hg (80.0-90.0) H 09/21/20 02:15 POC ABG HCO3 18.9 09/22/20 03:21 ABG O2 Saturation 96.3 (0-100) 09/22/20 03:21 PT/INR, D-dimer PT 15.4 Sec. (12.2-14.9) H 09/21/20 10:08 INR 1.24 (0.87-1.13) H 09/21/20 10:08 Abnormal lab findings: Abnormal Labs 09/20/20 09/20/20 09/20/20 23:02 23:02 23:02 WBC RBC Hgb Hct MCV 96 H RDW 15.8 H Seg Neuts % (Manual) 34.0 L Lymphocytes % (Manual) 57.0 H PT INR 1.14 H ABG pH POC ABG pCO2 POC ABG pO2 ABG pO2 ABG HCO3 ABG O2 Saturation ABG Base Excess ABG Oxyhemoglobin ABG Potassium ABG Chloride ABG Glucose Sodium Potassium Chloride Carbon Dioxide 21 L BUN 26 H Creatinine 2.1 H Glucose 227 H POC Glucose Lactic Acid Calcium 10.3 H AST 59 H Total Creatine Kinase Troponin T HDL Cholesterol Arterial Blood Glucose Arterial Blood Ionized Calcium Urine WBC (Auto) Urine Creatinine 09/20/20 09/20/20 09/21/20 23:15 23:35 01:20 WBC RBC Hgb Hct MCV RDW Seg Neuts % (Manual) Lymphocytes % (Manual) PT INR ABG pH POC ABG pCO2 POC ABG pO2 ABG pO2 ABG HCO3 ABG O2 Saturation ABG Base Excess ABG Oxyhemoglobin ABG Potassium ABG Chloride ABG Glucose Sodium Potassium Chloride Carbon Dioxide BUN Creatinine Glucose POC Glucose 197 H Lactic Acid 8.70 H* Calcium AST Total Creatine Kinase Troponin T HDL Cholesterol Arterial Blood Glucose Arterial Blood Ionized Calcium Urine WBC (Auto) 47.0 H Urine Creatinine 09/21/20 09/21/20 09/21/20 02:01 02:15 04:25 WBC RBC Hgb Hct MCV RDW Seg Neuts % (Manual) Lymphocytes % (Manual) PT INR ABG pH 7.258 L POC ABG pCO2 POC ABG pO2 ABG pO2 244.1 H ABG HCO3 17.7 L ABG O2 Saturation 99.4 H ABG Base Excess -8.8 L ABG Oxyhemoglobin ABG Potassium ABG Chloride ABG Glucose Sodium Potassium Chloride Carbon Dioxide BUN Creatinine Glucose POC Glucose 65 L Lactic Acid Calcium AST Total Creatine Kinase Troponin T 0.865 H* D HDL Cholesterol 60 H Arterial Blood Glucose Arterial Blood Ionized Calcium Urine WBC (Auto) Urine Creatinine 09/21/20 09/21/20 09/21/20 04:34 04:34 07:03 WBC RBC Hgb 16.9 H D Hct 51.3 H D MCV RDW Seg Neuts % (Manual) Lymphocytes % (Manual) PT INR ABG pH POC ABG pCO2 POC ABG pO2 ABG pO2 ABG HCO3 ABG O2 Saturation ABG Base Excess ABG Oxyhemoglobin ABG Potassium ABG Chloride ABG Glucose Sodium Potassium Chloride Carbon Dioxide BUN Creatinine Glucose POC Glucose Lactic Acid 3.00 H* Calcium AST Total Creatine Kinase Troponin T 1.880 H* D HDL Cholesterol Arterial Blood Glucose Arterial Blood Ionized Calcium Urine WBC (Auto) Urine Creatinine 09/21/20 09/21/20 09/21/20 07:03 07:32 07:53 WBC 19.2 H RBC 5.31 H Hgb 16.0 H Hct 49.0 H MCV RDW 15.7 H Seg Neuts % (Manual) Lymphocytes % (Manual) PT 16.3 H INR 1.31 H ABG pH POC ABG pCO2 POC ABG pO2 ABG pO2 ABG HCO3 ABG O2 Saturation ABG Base Excess ABG Oxyhemoglobin ABG Potassium ABG Chloride ABG Glucose Sodium Potassium Chloride Carbon Dioxide BUN Creatinine Glucose POC Glucose 60 L Lactic Acid Calcium AST Total Creatine Kinase Troponin T HDL Cholesterol Arterial Blood Glucose Arterial Blood Ionized Calcium Urine WBC (Auto) Urine Creatinine 09/21/20 09/21/20 09/21/20 07:53 09:30 10:08 WBC RBC Hgb Hct MCV RDW Seg Neuts % (Manual) Lymphocytes % (Manual) PT 15.4 H INR 1.24 H ABG pH POC ABG pCO2 POC ABG pO2 ABG pO2 ABG HCO3 ABG O2 Saturation ABG Base Excess ABG Oxyhemoglobin ABG Potassium ABG Chloride ABG Glucose Sodium 146 H Potassium 3.5 L Chloride 109.6 H Carbon Dioxide 20 L BUN 37 H Creatinine 2.8 H Glucose 127 H POC Glucose Lactic Acid 3.00 H* Calcium AST Total Creatine Kinase Troponin T HDL Cholesterol Arterial Blood Glucose Arterial Blood Ionized Calcium Urine WBC (Auto) Urine Creatinine 09/21/20 09/21/20 09/21/20 10:34 11:22 11:44 WBC RBC Hgb Hct MCV RDW Seg Neuts % (Manual) Lymphocytes % (Manual) PT INR ABG pH POC ABG pCO2 25.9 L POC ABG pO2 196.9 H ABG pO2 ABG HCO3 ABG O2 Saturation ABG Base Excess ABG Oxyhemoglobin 98.4 H ABG Potassium 3.3 L ABG Chloride 113.0 H ABG Glucose 130 H Sodium Potassium Chloride Carbon Dioxide BUN Creatinine Glucose POC Glucose 126 H 127 H Lactic Acid Calcium AST Total Creatine Kinase Troponin T HDL Cholesterol Arterial Blood Glucose 130 H Arterial Blood Ionized Calcium Urine WBC (Auto) Urine Creatinine 09/21/20 09/21/20 09/21/20 14:27 14:27 15:09 WBC RBC Hgb Hct MCV RDW Seg Neuts % (Manual) Lymphocytes % (Manual) PT INR ABG pH POC ABG pCO2 POC ABG pO2 ABG pO2 ABG HCO3 ABG O2 Saturation ABG Base Excess ABG Oxyhemoglobin ABG Potassium ABG Chloride ABG Glucose Sodium Potassium Chloride Carbon Dioxide BUN Creatinine Glucose POC Glucose 135 H Lactic Acid Calcium AST Total Creatine Kinase Troponin T HDL Cholesterol Arterial Blood Glucose Arterial Blood Ionized Calcium Urine WBC (Auto) 12.0 H Urine Creatinine 60.4 H 0509/21/20 09/21/20 15:54 15:54 16:13 WBC RBC Hgb Hct MCV RDW Seg Neuts % (Manual) Lymphocytes % (Manual) PT INR ABG pH POC ABG pCO2 POC ABG pO2 ABG pO2 ABG HCO3 ABG O2 Saturation ABG Base Excess ABG Oxyhemoglobin ABG Potassium ABG Chloride ABG Glucose Sodium Potassium Chloride Carbon Dioxide BUN Creatinine Glucose POC Glucose 131 H Lactic Acid 3.60 H* Calcium AST Total Creatine Kinase 3606 H Troponin T HDL Cholesterol Arterial Blood Glucose Arterial Blood Ionized Calcium Urine WBC (Auto) Urine Creatinine 09/21/20 09/21/20 09/21/20 18:02 19:48 20:57 WBC RBC Hgb Hct MCV RDW Seg Neuts % (Manual) Lymphocytes % (Manual) PT INR ABG pH POC ABG pCO2 POC ABG pO2 ABG pO2 ABG HCO3 ABG O2 Saturation ABG Base Excess ABG Oxyhemoglobin ABG Potassium ABG Chloride ABG Glucose Sodium Potassium Chloride Carbon Dioxide BUN Creatinine Glucose POC Glucose 139 H 184 H 173 H Lactic Acid Calcium AST Total Creatine Kinase Troponin T HDL Cholesterol Arterial Blood Glucose Arterial Blood Ionized Calcium Urine WBC (Auto) Urine Creatinine 09/21/20 09/21/20 09/21/20 22:02 22:27 23:54 WBC RBC Hgb Hct MCV RDW Seg Neuts % (Manual) Lymphocytes % (Manual) PT INR ABG pH POC ABG pCO2 POC ABG pO2 ABG pO2 ABG HCO3 ABG O2 Saturation ABG Base Excess ABG Oxyhemoglobin ABG Potassium ABG Chloride ABG Glucose Sodium Potassium Chloride Carbon Dioxide BUN Creatinine Glucose POC Glucose 147 H 142 H 143 H Lactic Acid Calcium AST Total Creatine Kinase Troponin T HDL Cholesterol Arterial Blood Glucose Arterial Blood Ionized Calcium Urine WBC (Auto) Urine Creatinine 09/22/20 09/22/20 09/22/20 00:49 02:01 02:14 WBC RBC Hgb Hct MCV RDW Seg Neuts % (Manual) Lymphocytes % (Manual) PT INR ABG pH POC ABG pCO2 POC ABG pO2 ABG pO2 ABG HCO3 ABG O2 Saturation ABG Base Excess ABG Oxyhemoglobin ABG Potassium ABG Chloride ABG Glucose Sodium Potassium Chloride Carbon Dioxide BUN Creatinine Glucose POC Glucose 154 H 154 H 149 H Lactic Acid Calcium AST Total Creatine Kinase Troponin T HDL Cholesterol Arterial Blood Glucose Arterial Blood Ionized Calcium Urine WBC (Auto) Urine Creatinine 09/22/20 09/22/20 09/22/20 02:57 03:21 03:58 WBC RBC Hgb Hct MCV RDW Seg Neuts % (Manual) Lymphocytes % (Manual) PT INR ABG pH 7.496 H POC ABG pCO2 25.0 L POC ABG pO2 73.8 L ABG pO2 ABG HCO3 ABG O2 Saturation ABG Base Excess ABG Oxyhemoglobin ABG Potassium ABG Chloride 115.0 H ABG Glucose 154 H Sodium Potassium Chloride Carbon Dioxide BUN Creatinine Glucose POC Glucose 166 H 158 H Lactic Acid Calcium AST Total Creatine Kinase Troponin T HDL Cholesterol Arterial Blood Glucose 154 H Arterial Blood Ionized Calcium 4.5 L Urine WBC (Auto) Urine Creatinine 09/22/20 09/22/20 09/22/20 05:06 05:56 06:50 WBC RBC Hgb Hct MCV RDW Seg Neuts % (Manual) Lymphocytes % (Manual) PT INR ABG pH POC ABG pCO2 POC ABG pO2 ABG pO2 ABG HCO3 ABG O2 Saturation ABG Base Excess ABG Oxyhemoglobin ABG Potassium ABG Chloride ABG Glucose Sodium Potassium Chloride Carbon Dioxide BUN Creatinine Glucose POC Glucose 147 H 145 H 137 H Lactic Acid Calcium AST Total Creatine Kinase Troponin T HDL Cholesterol Arterial Blood Glucose Arterial Blood Ionized Calcium Urine WBC (Auto) Urine Creatinine
[2020-09-22 09:15] LABS: Basophils % (Auto) 0.1 % (0.0-1.8); Hematocrit 41.2 % (35.5-45.6); Hemoglobin 13.5 gm/dl (11.8-15.2); Lymphocytes # (Auto) 1.2 K/mm3 (1.2-5.4); Lymphocytes % (Auto) 7.6 % (13.4-35.0); Mean Corpuscular HGB Conc 33 % (32-34); Mean Corpuscular Volume 92 fl (84-94); Monocytes % (Auto) 6.3 % (0.0-7.3); Platelet Count 154 K/mm3 (140-440)
[2020-09-22 09:17] LABS: Calcium 7.7 mg/dL (8.4-10.2)
[2020-09-22] MEDS: HEPARIN 5,000 UNIT/1 ML VIAL SUB-Q SCH ×2 (09:26→22:11)
[2020-09-22] MEDS: ASPIRIN 325 MG TAB PO SCH (09:26)
[2020-09-22] MEDS: FAMOTIDINE 20 MG/2 ML INJ IV SCH (09:27)
[2020-09-22] MEDS: cefTRIAXone/NS 1 GM/50 ML 1 GM/50 ML BAG IV SCH (09:27)
[2020-09-22 09:32] LABS: INR 1.25 (0.87-1.13)
[2020-09-22] MEDS ORDERED: fentaNYL 100 MCG/2 ML INJ IV ONE (10:00)
[2020-09-22] MEDS ORDERED: carvediloL 12.5 MG TAB PO SCH (10:00)
--- NOTE | 2020-09-22 11:00 | Progress Note ---
Assessment and Plan - Patient Problems (1) Cardiac arrest Current Visit: Yes Status: Acute Plan to address problem: Patient has severe cardiomegaly on chest x-ray, underlying left bundle branch block, which suggest an underlying cardiomyopathy resulting in a primary cardiac arrest. He is reported to have been down for 45 minutes in the field. An echocardiogram demonstrates severe left ventricular dysfunction, ejection fraction 10-15%. Continue supportive management. Subjective Date of service: 09/22/20 Interval history: Intubated, unresponsive, on the vent. Objective Vital Signs Temp Pulse Pulse Resp BP Pulse Ox 09/22/20 09:26 119 H 105/69 09/22/20 08:45 119 H 96/71 95 09/22/20 08:00 118 H 133 H 40 H 98 09/22/20 07:57 100 F H 09/22/20 04:46 116 H 112/77 98 09/22/20 04:00 116 H 116 H 39 H 98 09/22/20 03:43 99.7 F H 09/22/20 00:00 117 H 117 H 40 H 98 09/21/20 23:49 121 H 118/85 98 09/21/20 23:39 99.9 F H 09/21/20 20:48 129 H 150/105 99 09/21/20 20:00 100.7 F H 129 H 129 H 43 H 98 09/21/20 16:01 132 H 09/21/20 16:00 133 H 40 H 98 09/21/20 15:07 129 H 152/109 99 09/21/20 12:09 131 H 131 H 35 H 98 09/21/20 12:02 101.9 F H 09/21/20 11:11 114 H 135/105 99 - Physical Examination General: Other (intubated, unresponsive, on the vent) Cardiac: Positive: Tachycardia - Labs and Meds Coagulation 09/21/20 09/22/20 Range/Units 10:08 08:26 PT 15.4 H 15.5 H (12.2-14.9) Sec. INR 1.24 H 1.25 H (0.87-1.13) APTT 30.6 (24.2-36.6) Sec. CBC 09/22/20 Range/Units 08:26 WBC 15.2 H (4.5-11.0) K/mm3 RBC 4.50 (3.65-5.03) M/mm3 Hgb 13.5 (11.8-15.2) gm/dl Hct 41.2 D (35.5-45.6) % Plt Count 154 (140-440) K/mm3 Lymph # (Auto) 1.2 (1.2-5.4) K/mm3 [place] # (Auto) 1.0 H (0.0-0.8) K/mm3 Eos # (Auto) 0.0 (0.0-0.4) K/mm3 Baso # (Auto) 0.0 (0.0-0.1) K/mm3 Comprehensive Metabolic Panel 09/22/20 Range/Units 08:26 Sodium 146 H (137-145) mmol/L Potassium 3.5 L (3.6-5.0) mmol/L Chloride 114.0 H (98-107) mmol/L Carbon Dioxide 18 L (22-30) mmol/L BUN 46 H (9-20) mg/dL Creatinine 3.7 H (0.8-1.3) mg/dL Glucose 134 H (75-100) mg/dL Calcium 7.7 L (8.4-10.2) mg/dL
[2020-09-22] MEDS: ACETAMINOPHEN 325 MG/10.15 ML ORAL LIQD UNIT DOSE FEEDTUBE PRN ×2 (11:06→23:55)
[2020-09-22] MEDS ORDERED: fentaNYL 100 MCG/2 ML INJ IV PRN (11:30)
[2020-09-22] MEDS: fentaNYL DRIP Premix 2,000 MCG/100 ML BAG IV SCH ×2 (11:58→18:03)
--- NOTE | 2020-09-22 12:54 | Progress Note ---
Assessment and Plan (1) Cardiac arrest (2) Respiratory failure (3) Hypotension (4) Renal failure JAMEY secondary to ATN Rising creatinine, however, very good UOP will check renal US will check urine lytes no indication for HD renally dose meds strict I&O Subjective Date of service: 09/22/20 Principal diagnosis: JAMEY Interval history: on the vent, tachycardic and tachypneic Objective - Vital Signs Vital signs: Vital Signs - 12hr 09/22/20 09/22/20 09/22/20 03:43 04:00 04:46 Temperature 99.7 F H Pulse Rate 116 H 116 H Pulse Rate [ 116 H From Monitor] Respiratory 39 H Rate Blood Pressure 112/77 O2 Sat by Pulse 98 98 Oximetry 09/22/20 09/22/20 09/22/20 07:57 08:00 08:45 Temperature 100 F H Pulse Rate 118 H 119 H Pulse Rate [ 133 H From Monitor] Respiratory 40 H Rate Blood Pressure 96/71 O2 Sat by Pulse 98 95 Oximetry 09/22/20 09/22/20 09/22/20 09:26 11:56 12:00 Temperature Pulse Rate 119 H 106 H 108 H Pulse Rate [ 117 H From Monitor] Respiratory 40 H Rate Blood Pressure 105/69 101/68 O2 Sat by Pulse 95 98 Oximetry 09/22/20 12:21 Temperature 98.0 F Pulse Rate Pulse Rate [ From Monitor] Respiratory Rate Blood Pressure O2 Sat by Pulse Oximetry - Lab 09/22/20 08:26 09/22/20 08:26 Most recent lab results ABG pH 7.496 (7.320-7.450) H 09/22/20 03:21 ABG pCO2 40.5 mm Hg 09/21/20 02:15 ABG pO2 244.1 mm Hg (80.0-90.0) H 09/21/20 02:15 ABG HCO3 17.7 mmol/L (20.0-26.0) L 09/21/20 02:15 ABG O2 Saturation 96.3 (0-100) 09/22/20 03:21 Calcium 7.7 mg/dL (8.4-10.2) L 09/22/20 08:26 Phosphorus 3.80 mg/dL (2.5-4.5) 09/22/20 08:26 Urine Creatinine 60.4 mg/dL (0.1-20.0) H 09/21/20 14:27 Urine Sodium 108 mmol/L 09/21/20 14:27 Medications & Allergies - Medications Allergies/Adverse Reactions: Allergies No Known Allergies Allergy (Unverified 09/20/20 23:08) Home Medications: Home Medications Medication Instructions Recorded Confirmed Last Taken Type Furosemide [Lasix] 40 mg PO QDAY 09/21/20 09/21/20 Unknown History Simvastatin 20 mg PO QDAY 09/21/20 09/21/20 Unknown History amLODIPine [Norvasc] 5 mg PO DAILY 09/21/20 09/21/20 Unknown History carvediloL [Coreg] 25 mg PO BID 09/21/20 09/21/20 Unknown History lisinopriL [Zestril TAB] 40 mg PO QDAY 09/21/20 09/21/20 Unknown History Active Medications: Generic Name Dose Route Start Last Admin Trade Name Freq PRN Reason Stop Dose Admin Acetaminophen 650 mg 09/21/20 15:51 09/22/20 11:06 Acetaminophen 325 Mg/10.15 Ml Oral Liqd Unit Dose FEEDTUBE 650 mg Q6H PRN Administration Pain, Mild (1-3) Lipase/Protease/Amylase 1 each 09/22/20 08:53 Lipase 10,500/Protease 25,000/Amylase 43,750 (Units) Dr Greer FEEDTUBE PRN PRN For Clogged Feeding Tube Aspirin 325 mg 09/21/20 16:00 09/22/20 09:26 Aspirin 325 Mg Tab PO 325 mg QDAY PATSY Administration Famotidine 20 mg 09/22/20 10:00 09/22/20 09:27 Famotidine 20 Mg/2 Ml Inj IV 20 mg QDAY PATSY Administration Fentanyl 50 mcg 09/22/20 11:30 Fentanyl 100 Mcg/2 Ml Inj IV Q10MIN PRN ANALGESIA Heparin Sodium (Porcine) 5,000 unit 09/21/20 22:00 09/22/20 09:26 Heparin 5,000 Unit/1 Ml Vial SUB-Q 5,000 unit Q12HR PATSY Administration Hydrophilic Ointment 1 applic 09/20/20 22:59 Lip Therapy Vaseline TP Q2HR PRN Dry Lips Ceftriaxone Sodium 1 gm in 50 mls @ 100 mls/hr 09/21/20 10:00 09/22/20 09:27 Rocephin/Ns 1 Gm/50 Ml IV 100 mls/hr Q24HR PATSY Administration Protocol Norepinephrine 4 mg in 250 mls @ 7.5 mls/hr 09/21/20 05:00 Levophed Drip 4 Mg/Ns 250 Ml IV TITR PATSY Protocol 2 MCG/MIN Phenylephrine HCl 100 mg/ 100 mls @ 24 mls/hr 09/21/20 05:15 09/21/20 11:31 Sodium Chloride IV 0 mcg/min TITR PATSY 0 mls/hr Titration Protocol 400 MCG/MIN Dextrose/Sodium Chloride 1,000 mls @ 75 mls/hr 09/21/20 11:00 09/22/20 00:08 D5/0.45ns IV 75 mls/hr DIRECT PATSY Administration Propofol 1,000 mg in 100 mls @ 3.063 mls/hr 09/21/20 22:00 09/22/20 12:06 Diprivan 10 Mg/Ml IV 30 mcg/kg/min TITR PATSY 18.378 mls/hr Administration Protocol 5 MCG/KG/MIN Fentanyl Citrate 2,000 mcg in 100 mls @ 5.105 mls/hr 09/22/20 11:30 09/22/20 11:58 Fentanyl Drip Premix IV 3 mcg/kg/hr TITR PATSY 15.315 mls/hr Administration Protocol 1 MCG/KG/HR Metoprolol Tartrate 2.5 mg 09/22/20 12:00 Metoprolol Tartrate 5 Mg/5 Ml Inj IV Q6HR [facility] Multi-Ingred Cream/Lotion/Oil/Oint 1 applic 09/20/20 22:59 Mineral Oil/Petrolatum, White Ophth Oint 3.5 Gm OU Q4HR PRN Dry Eye(s) Ondansetron HCl 4 mg 09/21/20 01:24 Ondansetron 4 Mg/2 Ml Inj IV Q8H PRN Nausea And Vomiting Simple Syrup 15 ml 09/22/20 08:53 Simple Syrup 15 Ml FEEDTUBE PRN PRN Hypoglycemia Simple Syrup 30 ml 09/22/20 08:53 Simple Syrup 15 Ml FEEDTUBE PRN PRN Hypoglycemia Sodium Bicarbonate 325 mg 09/22/20 08:53 Sodium Bicarbonate 325 Mg Tab FEEDTUBE PRN PRN For Clogged Feeding Tube Sodium Chloride 10 ml 09/21/20 10:00 09/22/20 09:39 Sodium Chloride 0.9% 10 Ml Flush Syringe IV 10 ml BID PATSY Administration Sodium Chloride 10 ml 09/21/20 01:24 Sodium Chloride 0.9% 10 Ml Flush Syringe IV PRN PRN LINE FLUSH
[2020-09-22] MEDS: METOPROLOL TARTRATE 5 MG/5 ML INJ IV SCH ×2 (13:50→17:47)
[2020-09-22] MEDS ORDERED: POTASSIUM CHLORIDE 20 MEQ PACKET FEEDTUBE ONE (14:37)
--- NOTE | 2020-09-22 14:46 | Progress Note ---
Assessment and Plan Assessment and plan: This is a 50-year-old male with hypertension and heart failure admitted s/p cardiac arrest with JAMEY, UTI, lactic acidosis, hypotension. S/p cardiac arrest Acute hypoxic respiratory failure Acute kidney injury Urinary tract infection Leukocytosis Coagulopathic Hypernatremia Hypokalemia Hyperchloremia Metabolic acidosis Hypoglycemia Lactic acidosis Hypertension -CCM, cardiology, nephrology consulted, appreciate recommendations -Vasopressor support with Levophed, phenyl epinephrine, epinephrine--> wean as tolerated -COVID 19 pcr (-) -Sedated with Fentayl and propofol gtt -TF -09/21 echocardiogram shows severely dilated left ventricle, the ventricle systolic function severely decreased, borderline concentric left ventricle hypertrophy, severe global hypokinesis of the left ventricle, LVEF 10 to 15%, mild MR, trace TR, RVSP is normal at 12 mmHg, trace pericardial effusion. -IVF changed to D5 half-normal saline for persistent hypoglycemia, infusing while TF not at goal -Accu-Cheks every 4 hours -Renal ultrasound pending -10/01 FENa calculated at 3.14 indicating ATN -09/20 CXR shows cardiomegaly -09/21 CT head shows motion degradation of the image quality despite repeat imaging. However, there appears to be mild cerebral white matter disease as described without CT evidence of acute intracranial hemorrhage. -09/20 tracheal aspirate with light growth of usual respiratory misha -09/20 urine culture shows probable contamination -09/21 blood cultures x2 no growth to date GI/DVT prophylaxis: PPI, heparin subcu, SCDs to bilateral lower extremities while in bed Disposition: ICU History Interval history: This is a 50-year-old male with heart failure and hypertension who presents to the emergency department on 09/21 with cardiac arrest after syncopal episode about 45 minutes prior to arrival to the emergency department. Upon arrival to the emergency department patient was found to be hypotensive and subsequently started on pressors with significant improvement in his blood pressure. Work-up in the emergency department reveals lactic acidosis, initial troponin within normal limits however subsequent troponins were elevated, no obvious ischemic changes on EKG, UDS positive for marijuana, urinalysis significant for urinary tract infection, BUN/creatinine slightly elevated 26/21. CXR showed severe cardiomegaly with mild interstitial pulmonary edema. Patient was admitted to the hospital service with consults to [facility], cardiology and nephrology s/p cardiac arrest, UTI, JAMEY, lactic acidosis and hypotension. 09/22: Patient was started on a fentanyl drip and propofol drip was increased. At the time of my examination patient is on CMV tidal and 450, rate 20, PEEP 6 and FiO2 25%. Patient had a T-max of 101.9 overnight. Today we removed [place] cat heter and femoral CVL. Plan to obtain PICC/PIV. Started TF today. Hospitalist Physical - Constitutional Vitals: Temp Pulse Resp BP Pulse Ox 98.0 F 95 H 15 96/56 91 09/22/20 12:21 09/22/20 13:00 09/22/20 13:00 09/22/20 13:50 09/22/20 13:00 General appearance: Present: other (Unresponsive, on the vent) - EENT Eyes: Absent: PERRL ENT: dentition normal - Neck Neck: Present: normal ROM - Respiratory Respiratory effort: normal Respiratory: bilateral: CTA - Cardiovascular Rhythm: regular Heart Sounds: Present: S1 & S2. Absent: systolic murmur, diastolic murmur - Extremities Extremities: no ischemia, pulses intact, pulses symmetrical, No edema, normal temperature, normal color Peripheral Pulses: within normal limits - Abdominal General gastrointestinal: soft, non-tender, non-distended, normal bowel sounds - Integumentary Integumentary: Present: warm, dry - Psychiatric Psychiatric: other (unresponsive to painful stimuli) - Neurologic Neurologic: other (unresponsive to painful stimuli, pupils unreactive, no couhg/gag reflex) - Allied Health Allied health notes reviewed: nursing, RT HEART Score - HEART Score Troponin: Troponin T 1.880 ng/mL (0.00-0.029) H* D 09/21/20 04:34 Results - Labs CBC & Chem 7: 09/22/20 08:26 09/22/20 08:26 Labs: Laboratory Last Values WBC 15.2 K/mm3 (4.5-11.0) H 09/22/20 08:26 RBC 4.50 M/mm3 (3.65-5.03) 09/22/20 08:26 Hgb 13.5 gm/dl (11.8-15.2) 09/22/20 08:26 Hct 41.2 % (35.5-45.6) D 09/22/20 08:26 MCV 92 fl (84-94) 09/22/20 08: MCH 30 pg (28-32) 09/22/20 08:26 MCHC 33 % (32-34) 09/22/20 08:26 RDW 16.0 % (13.2-15.2) H 09/22/20 08:26 Plt Count 154 K/mm3 (140-440) 09/22/20 08:26 Lymph % (Auto) 7.6 % (13.4-35.0) L 09/22/20 08:26 [place] % (Auto) 6.3 % (0.0-7.3) 09/22/20 08: Eos % (Auto) 0.0 % (0.0-4.3) 09/22/20 08: Baso % (Auto) 0.1 % (0.0-1.8) 09/22/20 08: Lymph # (Auto) 1.2 K/mm3 (1.2-5.4) 09/22/20 08: [place] # (Auto) 1.0 K/mm3 (0.0-0.8) H 09/22/20 08:26 Eos # (Auto) 0.0 K/mm3 (0.0-0.4) 09/22/20 08: Baso # (Auto) 0.0 K/mm3 (0.0-0.1) 09/22/20 08:26 Add Manual Diff Complete 09/20/20 23:02 Total Counted 100 09/20/20 23:02 Seg Neutrophils % 86.0 % (40.0-70.0) H 09/22/20 08:26 Seg Neuts % (Manual) 34.0 % (40.0-70.0) L 09/20/20 23:02 Lymphocytes % (Manual) 57.0 % (13.4-35.0) H 09/20/20 23:02 Monocytes % (Manual) 6.0 % (0.0-7.3) 09/20/20 23:02 Eosinophils % (Manual) 2.0 % (0.0-4.3) 09/20/20 23:02 Basophils % (Manual) 1.0 % (0.0-1.8) 09/20/20 23:02 Nucleated RBC % Not Reportable 09/20/20 23:02 Seg Neutrophils # 13.0 K/mm3 (1.8-7.7) H 09/22/20 08:26 Seg Neutrophils # Man 1.9 K/mm3 (1.8-7.7) 09/20/20 23:02 Band Neutrophils # 0.0 K/mm3 09/20/20 23:02 Lymphocytes # (Manual) 3.2 K/mm3 (1.2-5.4) 09/20/20 23:02 Abs React Lymphs (Man) 0.0 K/mm3 09/20/20 23:02 Monocytes # (Manual) 0.3 K/mm3 (0.0-0.8) 09/20/20 23:02 Eosinophils # (Manual) 0.1 K/mm3 (0.0-0.4) 09/20/20 23:02 Basophils # (Manual) 0.1 K/mm3 (0.0-0.1) 09/20/20 23:02 Metamyelocytes # 0.0 K/mm3 09/20/20 23:02 Myelocytes # 0.0 K/mm3 09/20/20 23:02 Promyelocytes # 0.0 K/mm3 09/20/20 23:02 Blast Cells # 0.0 K/mm3 09/20/20 23:02 WBC Morphology Not Reportable 09/20/20 23:02 Hypersegmented Neuts Not Reportable 09/20/20 23:02 Hyposegmented Neuts Not Reportable 09/20/20 23:02 Hypogranular Neuts Not Reportable 09/20/20 23:02 Smudge Cells Not Reportable 09/20/20 23:02 Toxic Granulation Not Reportable 09/20/20 23:02 Toxic Vacuolation Not Reportable 09/20/20 23:02 Dohle Bodies Not Reportable 09/20/20 23:02 Pelger-Huet Anomaly Not Reportable 09/20/20 23:02 Santosh Rods Not Reportable 09/20/20 23:02 Platelet Estimate Not Reportable 09/20/20 23:02 Clumped Platelets Not Reportable 09/20/20 23:02 Plt Clumps, EDTA Not Reportable 09/20/20 23:02 Large Platelets Not Reportable 09/20/20 23:02 Giant Platelets Not Reportable 09/20/20 23:02 Platelet Satelliting Not Reportable 09/20/20 23:02 Plt Morphology Comment Not Reportable 09/20/20 23:02 RBC Morphology Normal 09/20/20 23:02 Dimorphic RBCs Not Reportable 09/20/20 23:02 Polychromasia Not Reportable 09/20/20 23:02 Hypochromasia Not Reportable 09/20/20 23:02 Poikilocytosis Not Reportable 09/20/20 23:02 Anisocytosis Not Reportable 09/20/20 23:02 Microcytosis Not Reportable 09/20/20 23:02 Macrocytosis Not Reportable 09/20/20 23:02 Spherocytes Not Reportable 09/20/20 23:02 Pappenheimer Bodies Not Reportable 09/20/20 23:02 Sickle Cells Not Reportable 09/20/20 23:02 Target Cells Not Reportable 09/20/20 23:02 Tear Drop Cells Not Reportable 09/20/20 23:02 Ovalocytes Not Reportable 09/20/20 23:02 Helmet Cells Not Reportable 09/20/20 23:02 [place] Bodies Not Reportable 09/20/20 23:02 Channing Rings Not Reportable 09/20/20 23:02 Melly Cells Not Reportable 09/20/20 23:02 Bite Cells Not Reportable 09/20/20 23:02 Crenated Cell Not Reportable 09/20/20 23:02 Elliptocytes Not Reportable 09/20/20 23:02 Acanthocytes (Spur) Not Reportable 09/20/20 23:02 Rouleaux Not Reportable 09/20/20 23:02 Hemoglobin C Crystals Not Reportable 09/20/20 23:02 Schistocytes Not Reportable 09/20/20 23:02 Malaria parasites Not Reportable 09/20/20 23:02 Eduardo Bodies Not Reportable 09/20/20 23:02 Hem Pathologist Commnt No 09/20/20 23:02 PT 15.5 Sec. (12.2-14.9) H 09/22/20 08:26 INR 1.25 (0.87-1.13) H 09/22/20 08:26 APTT 30.6 Sec. (24.2-36.6) 09/21/20 10:08 ABG pH 7.496 (7.320-7.450) H 09/22/20 03:21 POC ABG pCO2 25.0 mmHg (32.0-48.0) L 09/22/20 03:21 ABG pCO2 40.5 mm Hg 09/21/20 02:15 POC ABG pO2 73.8 mmHg (83-108) L 09/22/20 03:21 ABG pO2 244.1 mm Hg (80.0-90.0) H 09/21/20 02:15 POC ABG HCO3 18.9 09/22/20 03:21 ABG HCO3 17.7 mmol/L (20.0-26.0) L 09/21/20 02:15 ABG O2 Saturation 96.3 (0-100) 09/22/20 03:21 ABG O2 Content 24.2 (0.0-44) 09/21/20 02:15 POC ABG Base Excess -2.6 09/22/20 03:21 ABG Base Excess -8.8 mmol/L (-2.0-3.0) L 09/21/20 02:15 ABG Hemoglobin 14.3 (12.0-17.5) 09/22/20 03:21 ABG Oxyhemoglobin 95.1 (94-98) 09/22/20 03:21 ABG Carboxyhemoglobin 1.3 % (0.0-5.0) 09/21/20 02:15 ABG Methemoglobin 0.3 (0.0-1.5) 09/22/20 03:21 ABG Sodium 142.9 mmol/L (136.0-145.0) 09/22/20 03:21 ABG Potassium 3.5 mmol/L (3.40-4.50) 09/22/20 03:21 ABG Chloride 115.0 mmol/L (98-107) H 09/22/20 03:21 ABG Glucose 154 mg/dL (65-95) H 09/22/20 03:21 Oxyhemoglobin 97.4 % (95.0-99.0) 09/21/20 02:15 Carboxyhemoglobin 0.9 (0.5-1.5) 09/22/20 03:21 FiO2 21 % 09/21/20 02:15 FiO2 % 25.0 09/22/20 03:21 Sodium 146 mmol/L (137-145) H 09/22/20 08:26 Potassium 3.5 mmol/L (3.6-5.0) L 09/22/20 08:26 Chloride 114.0 mmol/L (98-107) H 09/22/20 08:26 Carbon Dioxide 18 mmol/L (22-30) L 09/22/20 08:26 Anion Gap 18 mmol/L 09/22/20 08:26 BUN 46 mg/dL (9-20) H 09/22/20 08:26 Creatinine 3.7 mg/dL (0.8-1.3) H 09/22/20 08:26 Estimated GFR 21 ml/min 09/22/20 08:26 BUN/Creatinine Ratio 12 % 09/22/20 08:26 Glucose 134 mg/dL (75-100) H 09/22/20 08:26 POC Glucose 138 mg/dL (70-105) H 09/22/20 12:04 Lactic Acid 3.60 mmol/L (0.7-2.0) H* 09/21/20 15:54 Calcium 7.7 mg/dL (8.4-10.2) L 09/22/20 08:26 Phosphorus 3.80 mg/dL (2.5-4.5) 09/22/20 08:26 Total Bilirubin 0.30 mg/dL (0.1-1.2) 09/20/20 23:02 AST 59 units/L (5-40) H 09/20/20 23:02 ALT 30 units/L (7-56) 09/20/20 23:02 Alkaline Phosphatase 88 units/L (35-129) 09/20/20 23:02 Total Creatine Kinase 3606 units/L (55-170) H 09/21/20 15:54 Troponin T 1.880 ng/mL (0.00-0.029) H* D 09/21/20 04:34 Total Protein 7.0 g/dL (6.3-8.2) 09/20/20 23:02 Albumin 4.1 g/dL (3.9-5) 09/20/20 23:02 Albumin/Globulin Ratio 1.4 % 09/20/20 23:02 Triglycerides 43 mg/dL (2-149) 09/21/20 02:01 Cholesterol 152 mg/dL (50-199) 09/21/20 02:01 LDL Cholesterol Direct 92 mg/dL (50-130) 09/21/20 02:01 HDL Cholesterol 60 mg/dL (40-59) H 09/21/20 02:01 Cholesterol/HDL Ratio 2.53 % 09/21/20 02:01 Arterial Blood Glucose 154 mg/dL (65-95) H 09/22/20 03:21 Arterial Blood Ionized Calcium 4.5 mg/dL (4.6-5.3) L 09/22/20 03:21 Urine Color Yellow (Yellow) 09/21/20 14:27 Urine Turbidity Slightly-cloudy (Clear) 09/21/20 14:27 Urine pH 5.0 (5.0-7.0) 09/21/20 14: Ur Specific [place] 1.011 (1.003-1.030) 09/21/20 14: Urine Protein 100 mg/dl mg/dL (Negative) 09/21/20 14:27 Urine Glucose (UA) 50 mg/dL (Negative) 09/21/20 14:27 Urine Ketones Neg mg/dL (Negative) 09/21/20 14:27 Urine Blood Lg (Negative) 09/21/20 14:27 Urine Nitrite Neg (Negative) 09/21/20 14:27 Urine Bilirubin Neg (Negative) 09/21/20 14:27 Urine Urobilinogen < 2.0 mg/dL (<2.0) 09/21/20 14:27 Ur Leukocyte Esterase Neg (Negative) 09/21/20 14:27 Urine WBC (Auto) 12.0 /HPF (0.0-6.0) H 09/21/20 14:27 Urine RBC (Auto) 48.0 /HPF (0.0-6.0) 09/21/20 14:27 U Epithel Cells (Auto) < 1.0 /HPF (0-13.0) 09/21/20 14:27 Urine Bacteria (Auto) 2+ /HPF (Negative) 09/21/20 14:27 Urine Mucus Few /HPF 09/21/20 14:27 Urine Yeast (Budding) 2+ /HPF 09/20/20 23:35 Urine Sperm 1+ /HPF (HEAD UP OPERATOR HELPER) 09/20/20 23:35 Urine Creatinine 60.4 mg/dL (0.1-20.0) H 09/21/20 14:27 Urine Sodium 108 mmol/L 09/21/20 14:27 Urine Urea Nitrogen 305 09/21/20 14:27 Urine Opiates Screen Presumptive negative 09/20/20 Unknown Urine Methadone Screen Presumptive negative 09/20/20 Unknown Ur Barbiturates Screen Presumptive negative 09/20/20 Unknown Ur Phencyclidine Scrn Presumptive negative 09/20/20 Unknown Ur Amphetamines Screen Presumptive negative 09/20/20 Unknown U Benzodiazepines Scrn Presumptive negative 09/20/20 Unknown Urine Cocaine Screen Presumptive negative 09/20/20 Unknown U Marijuana (THC) Screen Presumptive positive 09/20/20 Unknown Drugs of Abuse Note Disclamer 09/20/20 Unknown Coronavirus (PCR) Negative (Negative) 09/21/20 10:13 Microbiology: Microbiology 09/20/20 23:35 Urine,Clean Catch Urine Culture - Preliminary 09/20/20 23:35 Tracheal Aspirate Sputum Culture - Preliminary 09/21/20 02:01 Peripheral/Venous Blood Culture - Preliminary NO GROWTH AFTER 24 HOURS 09/21/20 02:03 Peripheral/Venous Blood Culture - Preliminary NO GROWTH AFTER 24 HOURS [place]/IV: Voiding Method Indwelling Catheter Active Medications - Current Medications Current Medications: Generic Name Dose Route Start Last Admin Trade Name Freq PRN Reason Stop Dose Admin Acetaminophen 650 mg 09/21/20 15:51 09/22/20 11:06 Acetaminophen 325 Mg/10.15 Ml Oral Liqd Unit Dose FEEDTUBE 650 mg Q6H PRN Administration Pain, Mild (1-3) Lipase/Protease/Amylase 1 each 09/22/20 08:53 Lipase 10,500/Protease 25,000/Amylase 43,750 (Units) Dr Greer FEEDTUBE PRN PRN For Clogged Feeding Tube Aspirin 325 mg 09/21/20 16:00 09/22/20 09:26 Aspirin 325 Mg Tab PO 325 mg QDAY PATSY Administration Famotidine 20 mg 09/22/20 10:00 09/22/20 09:27 Famotidine 20 Mg/2 Ml Inj IV 20 mg QDAY PATSY Administration Fentanyl 50 mcg 09/22/20 11:30 Fentanyl 100 Mcg/2 Ml Inj IV Q10MIN PRN ANALGESIA Heparin Sodium (Porcine) 5,000 unit 09/21/20 22:00 09/22/20 09:26 Heparin 5,000 Unit/1 Ml Vial SUB-Q 5,000 unit Q12HR PATSY Administration Hydrophilic Ointment 1 applic 09/20/20 22:59 Lip Therapy Vaseline TP Q2HR PRN Dry Lips Ceftriaxone Sodium 1 gm in 50 mls @ 100 mls/hr 09/21/20 10:00 09/22/20 09:27 Rocephin/Ns 1 Gm/50 Ml IV 100 mls/hr Q24HR PATSY Administration Protocol Norepinephrine 4 mg in 250 mls @ 7.5 mls/hr 09/21/20 05:00 Levophed Drip 4 Mg/Ns 250 Ml IV TITR PATSY Protocol 2 MCG/MIN Phenylephrine HCl 100 mg/ 100 mls @ 24 mls/hr 09/21/20 05:15 09/21/20 11:31 Sodium Chloride IV 0 mcg/min TITR PATSY 0 mls/hr Titration Protocol 400 MCG/MIN Dextrose/Sodium Chloride 1,000 mls @ 75 mls/hr 09/21/20 11:00 09/22/20 00:08 D5/0.45ns IV 75 mls/hr DIRECT PATSY Administration Propofol 1,000 mg in 100 mls @ 3.063 mls/hr 09/21/20 22:00 09/22/20 13:50 Diprivan 10 Mg/Ml IV 10 mcg/kg/min TITR PATSY 6.126 mls/hr Titration Protocol 5 MCG/KG/MIN Fentanyl Citrate 2,000 mcg in 100 mls @ 5.105 mls/hr 09/22/20 11:30 09/22/20 11:58 Fentanyl Drip Premix IV 3 mcg/kg/hr TITR PATSY 15.315 mls/hr Administration Protocol 1 MCG/KG/HR Metoprolol Tartrate 2.5 mg 09/22/20 12:00 09/22/20 13:50 Metoprolol Tartrate 5 Mg/5 Ml Inj IV Not Given Q6HR [facility] Multi-Ingred Cream/Lotion/Oil/Oint 1 applic 09/20/20 22:59 Mineral Oil/Petrolatum, White Ophth Oint 3.5 Gm OU Q4HR PRN Dry Eye(s) Ondansetron HCl 4 mg 09/21/20 01:24 Ondansetron 4 Mg/2 Ml Inj IV Q8H PRN Nausea And Vomiting Simple Syrup 15 ml 09/22/20 08:53 Simple Syrup 15 Ml FEEDTUBE PRN PRN Hypoglycemia Simple Syrup 30 ml 09/22/20 08:53 Simple Syrup 15 Ml FEEDTUBE PRN PRN Hypoglycemia Sodium Bicarbonate 325 mg 09/22/20 08:53 Sodium Bicarbonate 325 Mg Tab FEEDTUBE PRN PRN For Clogged Feeding Tube Sodium Chloride 10 ml 09/21/20 10:00 09/22/20 09:39 Sodium Chloride 0.9% 10 Ml Flush Syringe IV 10 ml BID PATSY Administration Sodium Chloride 10 ml 09/21/20 01:24 Sodium Chloride 0.9% 10 Ml Flush Syringe IV PRN PRN LINE FLUSH Nutrition/Malnutrition Assess - Dietary Evaluation Nutrition/Malnutrition Findings: Nutrition Notes Start: 09/21/20 08:17 Freq: Status: Active Protocol: Document 09/22/20 08:32 CW (Rec: 09/22/20 08:52 CW [id number]) Nutrition Notes Initial or Follow up Reassessment Current Diagnosis Acute Kidney Injury, Hypertension,Heart Failure, Respiratory Failure Other Pertinent Diagnosis Cardiac Arrest, UTI, anoxic brain injury Current Diet TF Labs/Tests 09/21/2020 Na 146 K 3.5 BUN 37 Cr 2.8 Pertinent Medications propofol at 25.504 ml/hr (673 kcal) D5 1/2 NS at 75 ml/hr Dobutamine, Levophed, epinephrine, phenylephrine NS 2 L Height 6 ft Weight 102.1 kg [place] Body Weight (kg) 80.90 BMI 30.5 Weight Status Obese Subjective/Other Information MD consult for write/manage TF . Pt remains on mechanical vent. TF adjusted for ~700 kcal of propofol provided. Pt not meeting protein needs at this time d/t JAMEY Percent of energy/protein needs met: 0%/0% Burn Absent Trauma Absent GI Symptoms None Current % PO Negligible Minimum of two criteria No physical signs of malnutrition #1 Nutrition Diagnosis Inadequate oral intake Diagnosis Progress(for reassessment Continues documentation) Is patient on ventilator? Yes Is Patient Ambulatory and/or Out of Bed No REE-([facility]-confined to bed) 2318.184 Kcal/Kg value to use for calculation 19 Approximate Energy Requirements Using 1940 kcal/Kg Calculation Used for Recommendations Kcal/kg Additional Notes Protein needs are >162g (>2g/ kgIBW) Fluid needs are 1ml/kcal Nutrition Intervention Change Diet Order: Initiate TF Nutrition Support: Vital AF 1.2 at 45 ml/hr with a free water flush of 275 ml q4h for hypernatremia. Once hypernatremia resolves, continue free water flush of 200 ml q4h. Kcal 1,296 Protein (gm) 81 Fluid (mL) 876 Goal #1 Meet at least 75% of kcal and protein needs as medically feasible Anticipated Discharge Needs: Unable to determine at this time Follow-Up By: 09/25/20 Additional Comments F/U for TF at goal, TF tolerance, vent status, propofol rate
[2020-09-23] MEDS: METOPROLOL TARTRATE 5 MG/5 ML INJ IV SCH ×4 (00:01→23:44)
[2020-09-23] MEDS: D5W/0.45% NACL 1,000 ML IV SCH ×2 (01:16→17:08)
[2020-09-23] MEDS: fentaNYL DRIP Premix 2,000 MCG/100 ML BAG IV SCH ×4 (03:09→23:44)
[2020-09-23 03:49] LABS: Basophils % (Auto) 0.1 % (0.0-1.8); Eosinophils % (Auto) 0.1 % (0.0-4.3); Hematocrit 38.4 % (35.5-45.6); Hemoglobin 12.5 gm/dl (11.8-15.2); Lymphocytes # (Auto) 1.2 K/mm3 (1.2-5.4); Lymphocytes % (Auto) 8.2 % (13.4-35.0); Mean Corpuscular HGB Conc 33 % (32-34); Mean Corpuscular Volume 94 fl (84-94); Monocytes # (Auto) 1.1 K/mm3 (0.0-0.8); Monocytes % (Auto) 7.8 % (0.0-7.3); Platelet Count 126 K/mm3 (140-440); Red Blood Count 4.09 M/mm3 (3.65-5.03); Red Cell Distribution Width 16.5 % (13.2-15.2)
[2020-09-23] MEDS ORDERED: ATROPINE 0.1% (1 MG/10 ML) CARDIAC SYRINGE ONE (04:04)
[2020-09-23] MEDS ORDERED: SODIUM BICARB 8.4% 50 MEQ/50 ML SYRINGE IV ONE (04:04)
[2020-09-23] MEDS ORDERED: EPINEPHrine 1 MG/10 ML SYRINGE ONE (04:04)
[2020-09-23 04:10] LABS: Calcium 7.4 mg/dL (8.4-10.2)
--- NOTE | 2020-09-23 04:43 | XRay Report ---
CHEST 1 VIEW 09/23/2020 3:50 AM INDICATION / CLINICAL INFORMATION: follow up respiratory failure. COMPARISON: None available. FINDINGS: SUPPORT DEVICES: Endotracheal tube and NG tube remain in place. HEART / MEDIASTINUM: Stable cardiomegaly. LUNGS / PLEURA: No significant pulmonary or pleural abnormality. No pneumothorax. ADDITIONAL FINDINGS: No significant additional findings. IMPRESSION: Stable cardiomegaly. Signer Name: Boo Núñez MD Signed: 09/23/2020 4:39 AM Workstation Name: [id number]
--- NOTE | 2020-09-23 05:15 | Cat Scan Report ---
CT head without contrast INDICATION : s/p cardiac arrest. TECHNIQUE: Axial imaging performed from the skull apex through the skull base without the use of con trast. All CT scans at this location are performed using CT dose reduction for ALARA by means of aut omated exposure control. COMPARISON: 09/21/2020. FINDINGS: Parenchyma: [Loss of reyna-white differentiation. Slightly more discrete low density area at the right occipital region. Ventricles: Ventricles are decreased in size diffusely. Soft tissues: Soft tissues including the orbits appear normal. Bones: No acute osseous abnormality. Sinuses: Sinuses and mastoid air cells are clear. IMPRESSION: 1. Loss of reyna-white differentiation diffusely likely due to diffuse cerebral edema. 2. Interval decrease in ventricular size diffusely likely due to compression. No herniation identifie d. 3. Suspect developing infarct right occipital region. No hemorrhage. 4. Evaluation limited by artifact Signer Name: Boo Núñez MD Signed: 09/23/2020 5:10 AM Workstation Name: [id number]
[2020-09-23] MEDS: ASPIRIN 325 MG TAB PO SCH (09:06)
[2020-09-23] MEDS: HEPARIN 5,000 UNIT/1 ML VIAL SUB-Q SCH ×2 (09:06→21:05)
[2020-09-23] MEDS: cefTRIAXone/NS 1 GM/50 ML 1 GM/50 ML BAG IV SCH (09:06)
[2020-09-23] MEDS: FAMOTIDINE 20 MG/2 ML INJ IV SCH (09:06)
--- NOTE | 2020-09-23 10:31 | Progress Note ---
Assessment and Plan 50 y/o male with 45 minute cardiac arrest, now on 3 vasopressors, intubated and not sedated, unresponsive. 09/23/20: Overall prognosis is very very poor. Multisystem organ failure (Neuro, Cardiac, Renal). Given new evidence of edema, confirms what was suspected of anoxic brain injury. Family did visit on yesterday. Will call today to given update on CT and what this means. MRI pending in regards to new stroke but not sure what therapy patient would be a candidate for. 09/22/20: Echo reveals significant systolic heart failure, likely not new. May have been cause of "collapse". patient does not have defibrillator or life vest. Await cardiology assessment but given mental state, doubt a candidate for any invasive procedures. Blood sugars are stable on D5 1/2 normal saline at 75, but now that off pressors will feed. Will remove central line and obtain midline vs picc. No documentation if mother visited yesterday or not. Will need to call her again to discuss echo results and persistent vegetative state. Likely is anoxic from prolonged downtime. Very very Poor Prognosis. WIll discuss goal directed therapy for CHF (ray, statin, beta db, may spironolactone) 1. Echo 2. May need repeat head CT in 48-72 hours 3. Change Fluids to D5 1/2 normal with fsbs q1 hours until 3 consecutive sugars >180 4. Wean Epi off first and then wean off the other pressors. Guarded to poor prognosis. CCT 31 minutes. Subjective Date of service: 09/23/20 Principal diagnosis: JAMEY Interval history: Repeat Head CT shows diffuse cerebral edema and new infarct in occipital lobe. Remains unresponsive on Vent. No sedation. Objective Vital Signs - 12hr 09/22/20 09/22/20 09/22/20 22:30 22:40 22:50 Temperature Pulse Rate 83 85 87 Pulse Rate [ From Monitor] Respiratory 10 L 10 L 9 L Rate Blood Pressure 103/64 103/64 101/67 O2 Sat by Pulse 95 93 95 Oximetry 09/22/20 09/22/20 09/22/20 23:00 23:10 23:20 Temperature Pulse Rate 89 87 86 Pulse Rate [ From Monitor] Respiratory 14 9 L 15 Rate Blood Pressure 99/66 99/66 103/65 O2 Sat by Pulse 96 96 96 Oximetry 09/22/20 09/22/20 09/22/20 23:24 23:30 23:59 Temperature 100.6 F H Pulse Rate 86 86 Pulse Rate [ From Monitor] Respiratory 15 11 L Rate Blood Pressure 103/65 102/68 O2 Sat by Pulse 95 96 Oximetry 09/23/20 09/23/20 09/23/20 00:00 00:01 00:11 Temperature Pulse Rate 85 82 81 Pulse Rate [ 92 H From Monitor] Respiratory 20 Rate Blood Pressure 96/69 96/69 96/69 O2 Sat by Pulse 97 96 Oximetry 09/23/20 09/23/20 09/23/20 00:30 01:00 01:30 Temperature Pulse Rate 76 86 75 Pulse Rate [ From Monitor] Respiratory 20 15 11 L Rate Blood Pressure 104/66 104/66 100/65 O2 Sat by Pulse 97 96 97 Oximetry 09/23/20 09/23/20 09/23/20 02:00 02:30 03:00 Temperature Pulse Rate 78 74 84 Pulse Rate [ From Monitor] Respiratory 14 13 16 Rate Blood Pressure 109/64 97/62 111/70 O2 Sat by Pulse 96 96 98 Oximetry 09/23/20 09/23/20 09/23/20 03:30 03:41 04:00 Temperature 98.1 F Pulse Rate 79 85 Pulse Rate [ 92 H From Monitor] Respiratory 14 15 Rate Blood Pressure 105/71 108/72 O2 Sat by Pulse 97 97 Oximetry 09/23/20 09/23/20 09/23/20 04:41 05:00 05:30 Temperature Pulse Rate 88 92 H 92 H Pulse Rate [ From Monitor] Respiratory 21 17 12 Rate Blood Pressure 112/71 117/77 126/81 O2 Sat by Pulse 98 98 99 Oximetry 09/23/20 09/23/20 09/23/20 06:00 06:30 06:32 Temperature Pulse Rate 94 H 91 H 91 H Pulse Rate [ From Monitor] Respiratory 13 15 Rate Blood Pressure 132/85 129/83 129/83 O2 Sat by Pulse 97 98 Oximetry 09/23/20 09/23/20 09/23/20 07:00 07:30 08:00 Temperature Pulse Rate 95 H 102 H 105 H Pulse Rate [ From Monitor] Respiratory 22 10 L 20 Rate Blood Pressure 120/84 128/89 135/96 O2 Sat by Pulse 95 96 97 Oximetry 09/23/20 09/23/20 09/23/20 08:30 08:50 09:00 Temperature Pulse Rate 106 H 112 H Pulse Rate [ 109 H From Monitor] Respiratory 18 20 13 Rate Blood Pressure 140/91 140/101 O2 Sat by Pulse 96 93 92 Oximetry Constitutional: comatose Eyes: non-icteric ENT: other (orally intubated and sedated) Neck: supple Effort: normal Ascultation: Bilateral: clear Percussion: Bilateral: not dull Tactile fremitus: Bilateral: normal Cardiovascular: other (sinus tachycardia) Gastrointestinal: normoactive bowel sounds, soft CBC and BMP: 09/23/20 03:30 09/23/20 03:30 ABG, PT/INR, D-dimer: ABG ABG pH 7.496 (7.320-7.450) H 09/22/20 03:21 POC ABG pCO2 25.0 mmHg (32.0-48.0) L 09/22/20 03:21 ABG pCO2 40.5 mm Hg 09/21/20 02:15 POC ABG pO2 73.8 mmHg (83-108) L 09/22/20 03:21 ABG pO2 244.1 mm Hg (80.0-90.0) H 09/21/20 02:15 POC ABG HCO3 18.9 09/22/20 03:21 ABG O2 Saturation 96.3 (0-100) 09/22/20 03:21 PT/INR, D-dimer PT 15.5 Sec. (12.2-14.9) H 09/22/20 08:26 INR 1.25 (0.87-1.13) H 09/22/20 08:26 Abnormal lab findings: Abnormal Labs 09/20/20 09/20/20 09/20/20 23:02 23:02 23:02 WBC RBC Hgb Hct MCV 96 H RDW 15.8 H Plt Count Lymph % (Auto) Carroll % (Auto) Carroll # (Auto) Seg Neutrophils % Seg Neuts % (Manual) 34.0 L Lymphocytes % (Manual) 57.0 H Seg Neutrophils # PT INR 1.14 H ABG pH POC ABG pCO2 POC ABG pO2 ABG pO2 ABG HCO3 ABG O2 Saturation ABG Base Excess ABG Oxyhemoglobin ABG Potassium ABG Chloride ABG Glucose Sodium Potassium Chloride Carbon Dioxide 21 L BUN 26 H Creatinine 2.1 H Glucose 227 H POC Glucose Lactic Acid Calcium 10.3 H Phosphorus AST 59 H Total Creatine Kinase Troponin T HDL Cholesterol Arterial Blood Glucose Arterial Blood Ionized Calcium Urine WBC (Auto) Urine Creatinine 09/20/20 09/20/20 09/21/20 23:15 23:35 01:20 WBC RBC Hgb Hct MCV RDW Plt Count Lymph % (Auto) Carroll % (Auto) Carroll # (Auto) Seg Neutrophils % Seg Neuts % (Manual) Lymphocytes % (Manual) Seg Neutrophils # PT INR ABG pH POC ABG pCO2 POC ABG pO2 ABG pO2 ABG HCO3 ABG O2 Saturation ABG Base Excess ABG Oxyhemoglobin ABG Potassium ABG Chloride ABG Glucose Sodium Potassium Chloride Carbon Dioxide BUN Creatinine Glucose POC Glucose 197 H Lactic Acid 8.70 H* Calcium Phosphorus AST Total Creatine Kinase Troponin T HDL Cholesterol Arterial Blood Glucose Arterial Blood Ionized Calcium Urine WBC (Auto) 47.0 H Urine Creatinine 09/21/20 09/21/20 09/21/20 02:01 02:15 04:25 WBC RBC Hgb Hct MCV RDW Plt Count Lymph % (Auto) Carroll % (Auto) Carroll # (Auto) Seg Neutrophils % Seg Neuts % (Manual) Lymphocytes % (Manual) Seg Neutrophils # PT INR ABG pH 7.258 L POC ABG pCO2 POC ABG pO2 ABG pO2 244.1 H ABG HCO3 17.7 L ABG O2 Saturation 99.4 H ABG Base Excess -8.8 L ABG Oxyhemoglobin ABG Potassium ABG Chloride ABG Glucose Sodium Potassium Chloride Carbon Dioxide BUN Creatinine Glucose POC Glucose 65 L Lactic Acid Calcium Phosphorus AST Total Creatine Kinase Troponin T 0.865 H* D HDL Cholesterol 60 H Arterial Blood Glucose Arterial Blood Ionized Calcium Urine WBC (Auto) Urine Creatinine 09/21/20 09/21/20 09/21/20 04:34 04:34 07:03 WBC RBC Hgb 16.9 H D Hct 51.3 H D MCV RDW Plt Count Lymph % (Auto) Carroll % (Auto) Carroll # (Auto) Seg Neutrophils % Seg Neuts % (Manual) Lymphocytes % (Manual) Seg Neutrophils # PT INR ABG pH POC ABG pCO2 POC ABG pO2 ABG pO2 ABG HCO3 ABG O2 Saturation ABG Base Excess ABG Oxyhemoglobin ABG Potassium ABG Chloride ABG Glucose Sodium Potassium Chloride Carbon Dioxide BUN Creatinine Glucose POC Glucose Lactic Acid 3.00 H* Calcium Phosphorus AST Total Creatine Kinase Troponin T 1.880 H* D HDL Cholesterol Arterial Blood Glucose Arterial Blood Ionized Calcium Urine WBC (Auto) Urine Creatinine 09/21/20 09/21/20 09/21/20 07:03 07:32 07:53 WBC 19.2 H RBC 5.31 H Hgb 16.0 H Hct 49.0 H MCV RDW 15.7 H Plt Count Lymph % (Auto) Carroll % (Auto) Carroll # (Auto) Seg Neutrophils % Seg Neuts % (Manual) Lymphocytes % (Manual) Seg Neutrophils # PT 16.3 H INR 1.31 H ABG pH POC ABG pCO2 POC ABG pO2 ABG pO2 ABG HCO3 ABG O2 Saturation ABG Base Excess ABG Oxyhemoglobin ABG Potassium ABG Chloride ABG Glucose Sodium Potassium Chloride Carbon Dioxide BUN Creatinine Glucose POC Glucose 60 L Lactic Acid Calcium Phosphorus AST Total Creatine Kinase Troponin T HDL Cholesterol Arterial Blood Glucose Arterial Blood Ionized Calcium Urine WBC (Auto) Urine Creatinine 09/21/20 09/21/20 09/21/20 07:53 09:30 10:08 WBC RBC Hgb Hct MCV RDW Plt Count Lymph % (Auto) Carroll % (Auto) Carroll # (Auto) Seg Neutrophils % Seg Neuts % (Manual) Lymphocytes % (Manual) Seg Neutrophils # PT 15.4 H INR 1.24 H ABG pH POC ABG pCO2 POC ABG pO2 ABG pO2 ABG HCO3 ABG O2 Saturation ABG Base Excess ABG Oxyhemoglobin ABG Potassium ABG Chloride ABG Glucose Sodium 146 H Potassium 3.5 L Chloride 109.6 H Carbon Dioxide 20 L BUN 37 H Creatinine 2.8 H Glucose 127 H POC Glucose Lactic Acid 3.00 H* Calcium Phosphorus AST Total Creatine Kinase Troponin T HDL Cholesterol Arterial Blood Glucose Arterial Blood Ionized Calcium Urine WBC (Auto) Urine Creatinine 09/21/20 09/21/20 09/21/20 10:34 11:22 11:44 WBC RBC Hgb Hct MCV RDW Plt Count Lymph % (Auto) Carroll % (Auto) Carroll # (Auto) Seg Neutrophils % Seg Neuts % (Manual) Lymphocytes % (Manual) Seg Neutrophils # PT INR ABG pH POC ABG pCO2 25.9 L POC ABG pO2 196.9 H ABG pO2 ABG HCO3 ABG O2 Saturation ABG Base Excess ABG Oxyhemoglobin 98.4 H ABG Potassium 3.3 L ABG Chloride 113.0 H ABG Glucose 130 H Sodium Potassium Chloride Carbon Dioxide BUN Creatinine Glucose POC Glucose 126 H 127 H Lactic Acid Calcium Phosphorus AST Total Creatine Kinase Troponin T HDL Cholesterol Arterial Blood Glucose 130 H Arterial Blood Ionized Calcium Urine WBC (Auto) Urine Creatinine 09/21/20 09/21/20 09/21/20 14:27 14:27 15:09 WBC RBC Hgb Hct MCV RDW Plt Count Lymph % (Auto) Carroll % (Auto) Carroll # (Auto) Seg Neutrophils % Seg Neuts % (Manual) Lymphocytes % (Manual) Seg Neutrophils # PT INR ABG pH POC ABG pCO2 POC ABG pO2 ABG pO2 ABG HCO3 ABG O2 Saturation ABG Base Excess ABG Oxyhemoglobin ABG Potassium ABG Chloride ABG Glucose Sodium Potassium Chloride Carbon Dioxide BUN Creatinine Glucose POC Glucose 135 H Lactic Acid Calcium Phosphorus AST Total Creatine Kinase Troponin T HDL Cholesterol Arterial Blood Glucose Arterial Blood Ionized Calcium Urine WBC (Auto) 12.0 H Urine Creatinine 60.4 H 09/21/20 09/21/20 09/21/20 15:54 15:54 16:13 WBC RBC Hgb Hct MCV RDW Plt Count Lymph % (Auto) Carroll % (Auto) Carroll # (Auto) Seg Neutrophils % Seg Neuts % (Manual) Lymphocytes % (Manual) Seg Neutrophils # PT INR ABG pH POC ABG pCO2 POC ABG pO2 ABG pO2 ABG HCO3 ABG O2 Saturation ABG Base Excess ABG Oxyhemoglobin ABG Potassium ABG Chloride ABG Glucose Sodium Potassium Chloride Carbon Dioxide BUN Creatinine Glucose POC Glucose 131 H Lactic Acid 3.60 H* Calcium Phosphorus AST Total Creatine Kinase 3606 H Troponin T HDL Cholesterol Arterial Blood Glucose Arterial Blood Ionized Calcium Urine WBC (Auto) Urine Creatinine 09/21/20 09/21/20 09/21/20 18:02 19:48 20:57 WBC RBC Hgb Hct MCV RDW Plt Count Lymph % (Auto) Carroll % (Auto) Carroll # (Auto) Seg Neutrophils % Seg Neuts % (Manual) Lymphocytes % (Manual) Seg Neutrophils # PT INR ABG pH POC ABG pCO2 POC ABG pO2 ABG pO2 ABG HCO3 ABG O2 Saturation ABG Base Excess ABG Oxyhemoglobin ABG Potassium ABG Chloride ABG Glucose Sodium Potassium Chloride Carbon Dioxide BUN Creatinine Glucose POC Glucose 139 H 184 H 173 H Lactic Acid Calcium Phosphorus AST Total Creatine Kinase Troponin T HDL Cholesterol Arterial Blood Glucose Arterial Blood Ionized Calcium Urine WBC (Auto) Urine Creatinine 09/21/20 09/21/20 09/21/20 22:02 22:27 23:54 WBC RBC Hgb Hct MCV RDW Plt Count Lymph % (Auto) Carroll % (Auto) Carroll # (Auto) Seg Neutrophils % Seg Neuts % (Manual) Lymphocytes % (Manual) Seg Neutrophils # PT INR ABG pH POC ABG pCO2 POC ABG pO2 ABG pO2 ABG HCO3 ABG O2 Saturation ABG Base Excess ABG Oxyhemoglobin ABG Potassium ABG Chloride ABG Glucose Sodium Potassium Chloride Carbon Dioxide BUN Creatinine Glucose POC Glucose 147 H 142 H 143 H Lactic Acid Calcium Phosphorus AST Total Creatine Kinase Troponin T HDL Cholesterol Arterial Blood Glucose Arterial Blood Ionized Calcium Urine WBC (Auto) Urine Creatinine 09/22/20 09/22/20 09/22/20 00:49 02:01 02:14 WBC RBC Hgb Hct MCV RDW Plt Count Lymph % (Auto) Carroll % (Auto) Carroll # (Auto) Seg Neutrophils % Seg Neuts % (Manual) Lymphocytes % (Manual) Seg Neutrophils # PT INR ABG pH POC ABG pCO2 POC ABG pO2 ABG pO2 ABG HCO3 ABG O2 Saturation ABG Base Excess ABG Oxyhemoglobin ABG Potassium ABG Chloride ABG Glucose Sodium Potassium Chloride Carbon Dioxide BUN Creatinine Glucose POC Glucose 154 H 154 H 149 H Lactic Acid Calcium Phosphorus AST Total Creatine Kinase Troponin T HDL Cholesterol Arterial Blood Glucose Arterial Blood Ionized Calcium Urine WBC (Auto) Urine Creatinine 09/22/20 09/22/20 09/22/20 02:57 03:21 03:58 WBC RBC Hgb Hct MCV RDW Plt Count Lymph % (Auto) Carroll % (Auto) Carroll # (Auto) Seg Neutrophils % Seg Neuts % (Manual) Lymphocytes % (Manual) Seg Neutrophils # PT INR ABG pH 7.496 H POC ABG pCO2 25.0 L POC ABG pO2 73.8 L ABG pO2 ABG HCO3 ABG O2 Saturation ABG Base Excess ABG Oxyhemoglobin ABG Potassium ABG Chloride 115.0 H ABG Glucose 154 H Sodium Potassium Chloride Carbon Dioxide BUN Creatinine Glucose POC Glucose 166 H 158 H Lactic Acid Calcium Phosphorus AST Total Creatine Kinase Troponin T HDL Cholesterol Arterial Blood Glucose 154 H Arterial Blood Ionized Calcium 4.5 L Urine WBC (Auto) Urine Creatinine 09/22/20 09/22/20 09/22/20 05:06 05:56 06:50 WBC RBC Hgb Hct MCV RDW Plt Count Lymph % (Auto) Carroll % (Auto) Carroll # (Auto) Seg Neutrophils % Seg Neuts % (Manual) Lymphocytes % (Manual) Seg Neutrophils # PT INR ABG pH POC ABG pCO2 POC ABG pO2 ABG pO2 ABG HCO3 ABG O2 Saturation ABG Base Excess ABG Oxyhemoglobin ABG Potassium ABG Chloride ABG Glucose Sodium Potassium Chloride Carbon Dioxide BUN Creatinine Glucose POC Glucose 147 H 145 H 137 H Lactic Acid Calcium Phosphorus AST Total Creatine Kinase Troponin T HDL Cholesterol Arterial Blood Glucose Arterial Blood Ionized Calcium Urine WBC (Auto) Urine Creatinine 09/22/20 09/22/20 09/22/20 08:02 08:26 08:26 WBC 15.2 H RBC Hgb Hct MCV RDW 16.0 H Plt Count Lymph % (Auto) 7.6 L Carroll % (Auto) Carroll # (Auto) 1.0 H Seg Neutrophils % 86.0 H Seg Neuts % (Manual) Lymphocytes % (Manual) Seg Neutrophils # 13.0 H PT 15.5 H INR 1.25 H ABG pH POC ABG pCO2 POC ABG pO2 ABG pO2 ABG HCO3 ABG O2 Saturation ABG Base Excess ABG Oxyhemoglobin ABG Potassium ABG Chloride ABG Glucose Sodium Potassium Chloride Carbon Dioxide BUN Creatinine Glucose POC Glucose 149 H Lactic Acid Calcium Phosphorus AST Total Creatine Kinase Troponin T HDL Cholesterol Arterial Blood Glucose Arterial Blood Ionized Calcium Urine WBC (Auto) Urine Creatinine 09/22/20 09/22/20 09/22/20 08:26 12:04 15:55 WBC RBC Hgb Hct MCV RDW Plt Count Lymph % (Auto) Carroll % (Auto) Carroll # (Auto) Seg Neutrophils % Seg Neuts % (Manual) Lymphocytes % (Manual) Seg Neutrophils # PT INR ABG pH POC ABG pCO2 POC ABG pO2 ABG pO2 ABG HCO3 ABG O2 Saturation ABG Base Excess ABG Oxyhemoglobin ABG Potassium ABG Chloride ABG Glucose Sodium 146 H Potassium 3.5 L Chloride 114.0 H Carbon Dioxide 18 L BUN 46 H Creatinine 3.7 H Glucose 134 H POC Glucose 138 H 123 H Lactic Acid Calcium 7.7 L Phosphorus AST Total Creatine Kinase Troponin T HDL Cholesterol Arterial Blood Glucose Arterial Blood Ionized Calcium Urine WBC (Auto) Urine Creatinine 09/22/20 09/22/20 09/23/20 21:57 23:41 03:30 WBC 14.2 H RBC Hgb Hct MCV RDW 16.5 H Plt Count 126 L Lymph % (Auto) 8.2 L Carroll % (Auto) 7.8 H Carroll # (Auto) 1.1 H Seg Neutrophils % 83.8 H Seg Neuts % (Manual) Lymphocytes % (Manual) Seg Neutrophils # 11.9 H PT INR ABG pH POC ABG pCO2 POC ABG pO2 ABG pO2 ABG HCO3 ABG O2 Saturation ABG Base Excess ABG Oxyhemoglobin ABG Potassium ABG Chloride ABG Glucose Sodium Potassium Chloride Carbon Dioxide BUN Creatinine Glucose POC Glucose 124 H 130 H Lactic Acid Calcium Phosphorus AST Total Creatine Kinase Troponin T HDL Cholesterol Arterial Blood Glucose Arterial Blood Ionized Calcium Urine WBC (Auto) Urine Creatinine 09/23/20 09/23/20 03:30 03:45 WBC RBC Hgb Hct MCV RDW Plt Count Lymph % (Auto) Carroll % (Auto) Carroll # (Auto) Seg Neutrophils % Seg Neuts % (Manual) Lymphocytes % (Manual) Seg Neutrophils # PT INR ABG pH POC ABG pCO2 POC ABG pO2 ABG pO2 ABG HCO3 ABG O2 Saturation ABG Base Excess ABG Oxyhemoglobin ABG Potassium ABG Chloride ABG Glucose Sodium Potassium Chloride 110.4 H Carbon Dioxide 19 L BUN 56 H Creatinine 4.7 H Glucose 148 H POC Glucose 132 H Lactic Acid Calcium 7.4 L Phosphorus 5.80 H D AST Total Creatine Kinase Troponin T HDL Cholesterol Arterial Blood Glucose Arterial Blood Ionized Calcium Urine WBC (Auto) Urine Creatinine
--- NOTE | 2020-09-23 10:47 | Progress Note ---
Assessment and Plan (1) Cardiac arrest (2) Respiratory failure (3) Hypotension (4) Renal failure JAMEY secondary to ATN Cr worsening but making urine, no acute HD indication right now. Renal Us report pending Urine Cr low signalling some ATN will check urine lytes no indication for HD renally dose meds strict I&O Subjective Date of service: 09/23/20 Principal diagnosis: JAMEY Objective - Exam Narrative Exam: GE:Intubated HEENT:Normocephalic Neck:Supple Chest:Coarse BS BL CVS:RRR Abd:BS+ Ext:No cce Neuro:Sedated - Vital Signs Vital signs: Vital Signs - 12hr 09/22/20 09/22/20 09/22/20 22:50 23:00 23:10 Temperature Pulse Rate 87 89 87 Pulse Rate [ From Monitor] Respiratory 9 L 14 9 L Rate Blood Pressure 101/67 99/66 99/66 O2 Sat by Pulse 95 96 96 Oximetry 09/22/20 09/22/20 09/22/20 23:20 23:24 23:30 Temperature Pulse Rate 86 86 86 Pulse Rate [ From Monitor] Respiratory 15 15 11 L Rate Blood Pressure 103/65 103/65 102/68 O2 Sat by Pulse 96 95 96 Oximetry 09/22/20 09/23/20 09/23/20 23:59 00:00 00:01 Temperature 100.6 F H Pulse Rate 85 82 Pulse Rate [ 92 H From Monitor] Respiratory 20 Rate Blood Pressure 96/69 96/69 O2 Sat by Pulse 97 Oximetry 09/23/20 09/23/20 09/23/20 00:11 00:30 01:00 Temperature Pulse Rate 81 76 86 Pulse Rate [ From Monitor] Respiratory 20 15 Rate Blood Pressure 96/69 104/66 104/66 O2 Sat by Pulse 96 97 96 Oximetry 09/23/20 09/23/20 09/23/20 01:30 02:00 02:30 Temperature Pulse Rate 75 78 74 Pulse Rate [ From Monitor] Respiratory 11 L 14 13 Rate Blood Pressure 100/65 109/64 97/62 O2 Sat by Pulse 97 96 96 Oximetry 09/23/20 09/23/20 09/23/20 03:00 03:30 03:41 Temperature 98.1 F Pulse Rate 84 79 Pulse Rate [ From Monitor] Respiratory 16 14 Rate Blood Pressure 111/70 105/71 O2 Sat by Pulse 98 97 Oximetry 09/23/20 09/23/20 09/23/20 04:00 04:41 05:00 Temperature Pulse Rate 85 88 92 H Pulse Rate [ 92 H From Monitor] Respiratory 15 21 17 Rate Blood Pressure 108/72 112/71 117/77 O2 Sat by Pulse 97 98 98 Oximetry 09/23/20 09/23/20 09/23/20 05:30 06:00 06:30 Temperature Pulse Rate 92 H 94 H 91 H Pulse Rate [ From Monitor] Respiratory 12 13 15 Rate Blood Pressure 126/81 132/85 129/83 O2 Sat by Pulse 99 97 98 Oximetry 09/23/20 09/23/20 09/23/20 06:32 07:00 07:30 Temperature Pulse Rate 91 H 95 H 102 H Pulse Rate [ From Monitor] Respiratory 22 10 L Rate Blood Pressure 129/83 120/84 128/89 O2 Sat by Pulse 95 96 Oximetry 09/23/20 09/23/20 09/23/20 08:00 08:30 08:50 Temperature Pulse Rate 105 H 106 H Pulse Rate [ 109 H From Monitor] Respiratory 20 18 20 Rate Blood Pressure 135/96 140/91 O2 Sat by Pulse 97 96 93 Oximetry 09/23/20 09:00 Temperature Pulse Rate 112 H Pulse Rate [ From Monitor] Respiratory 13 Rate Blood Pressure 140/101 O2 Sat by Pulse 92 Oximetry - Lab 09/23/20 03:30 09/23/20 03:30 Most recent lab results ABG pH 7.496 (7.320-7.450) H 09/22/20 03:21 ABG pCO2 40.5 mm Hg 09/21/20 02:15 ABG pO2 244.1 mm Hg (80.0-90.0) H 09/21/20 02:15 ABG HCO3 17.7 mmol/L (20.0-26.0) L 09/21/20 02:15 ABG O2 Saturation 96.3 (0-100) 09/22/20 03:21 Calcium 7.4 mg/dL (8.4-10.2) L 09/23/20 03:30 Phosphorus 5.80 mg/dL (2.5-4.5) H D 09/23/20 03:30 Urine Creatinine 60.4 mg/dL (0.1-20.0) H 09/21/20 14:27 Urine Sodium 108 mmol/L 09/21/20 14:27 Medications & Allergies - Medications Allergies/Adverse Reactions: Allergies No Known Allergies Allergy (Unverified 09/20/20 23:08) Home Medications: Home Medications Medication Instructions Recorded Confirmed Last Taken Type Furosemide [Lasix] 40 mg PO QDAY 09/21/20 09/21/20 Unknown History Simvastatin 20 mg PO QDAY 09/21/20 09/21/20 Unknown History amLODIPine [Norvasc] 5 mg PO DAILY 09/21/20 09/21/20 Unknown History carvediloL [Coreg] 25 mg PO BID 09/21/20 09/21/20 Unknown History lisinopriL [Zestril TAB] 40 mg PO QDAY 09/21/20 09/21/20 Unknown History Active Medications: Generic Name Dose Route Start Last Admin Trade Name Freq PRN Reason Stop Dose Admin Acetaminophen 650 mg 09/21/20 15:51 09/22/20 23:55 Acetaminophen 325 Mg/10.15 Ml Oral Liqd Unit Dose FEEDTUBE 650 mg Q6H PRN Administration Pain, Mild (1-3) Lipase/Protease/Amylase 1 each 09/22/20 08:53 Lipase 10,500/Protease 25,000/Amylase 43,750 (Units) Dr Greer FEEDTUBE PRN PRN For Clogged Feeding Tube Aspirin 325 mg 09/21/20 16:00 09/23/20 09:06 Aspirin 325 Mg Tab PO 325 mg QDAY PATSY Administration Atorvastatin Calcium 40 mg 09/23/20 22:00 Atorvastatin 40 Mg Tab PO QHS PATSY Famotidine 20 mg 09/22/20 10:00 09/23/20 09:06 Famotidine 20 Mg/2 Ml Inj IV 20 mg QDAY PATSY Administration Fentanyl 50 mcg 09/22/20 11:30 Fentanyl 100 Mcg/2 Ml Inj IV Q10MIN PRN ANALGESIA Heparin Sodium (Porcine) 5,000 unit 09/21/20 22:00 09/23/20 09:06 Heparin 5,000 Unit/1 Ml Vial SUB-Q 5,000 unit Q12HR PATSY Administration Hydrophilic Ointment 1 applic 09/20/20 22:59 Lip Therapy Vaseline TP Q2HR PRN Dry Lips Ceftriaxone Sodium 1 gm in 50 mls @ 100 mls/hr 09/21/20 10:00 09/23/20 09:06 Rocephin/Ns 1 Gm/50 Ml IV 100 mls/hr Q24HR PATSY Administration Protocol Norepinephrine 4 mg in 250 mls @ 7.5 mls/hr 09/21/20 05:00 Levophed Drip 4 Mg/Ns 250 Ml IV TITR PATSY Protocol 2 MCG/MIN Phenylephrine HCl 100 mg/ 100 mls @ 24 mls/hr 09/21/20 05:15 09/21/20 11:31 Sodium Chloride IV 0 mcg/min TITR PATSY 0 mls/hr Titration Protocol 400 MCG/MIN Dextrose/Sodium Chloride 1,000 mls @ 75 mls/hr 09/21/20 11:00 09/23/20 01:16 D5/0.45ns IV 75 mls/hr DIRECT PATSY Administration Propofol 1,000 mg in 100 mls @ 3.063 mls/hr 09/21/20 22:00 09/22/20 16:19 Diprivan 10 Mg/Ml IV 0 mcg/kg/min TITR PATSY 0 mls/hr Titration Protocol 5 MCG/KG/MIN Fentanyl Citrate 2,000 mcg in 100 mls @ 5.105 mls/hr 09/22/20 11:30 09/23/20 03:09 Fentanyl Drip Premix IV 2 mcg/kg/hr TITR PATSY 10.21 mls/hr Administration Protocol 1 MCG/KG/HR Metoprolol Tartrate 2.5 mg 09/22/20 12:00 09/23/20 06:32 Metoprolol Tartrate 5 Mg/5 Ml Inj IV 2.5 mg Q6HR PATSY Administration Multi-Ingred Cream/Lotion/Oil/Oint 1 applic 09/20/20 22:59 Mineral Oil/Petrolatum, White Ophth Oint 3.5 Gm OU Q4HR PRN Dry Eye(s) Ondansetron HCl 4 mg 09/21/20 01:24 Ondansetron 4 Mg/2 Ml Inj IV Q8H PRN Nausea And Vomiting Simple Syrup 15 ml 09/22/20 08:53 Simple Syrup 15 Ml FEEDTUBE PRN PRN Hypoglycemia Simple Syrup 30 ml 09/22/20 08:53 Simple Syrup 15 Ml FEEDTUBE PRN PRN Hypoglycemia Sodium Bicarbonate 325 mg 09/22/20 08:53 Sodium Bicarbonate 325 Mg Tab FEEDTUBE PRN PRN For Clogged Feeding Tube Sodium Chloride 10 ml 09/21/20 10:00 09/23/20 09:06 Sodium Chloride 0.9% 10 Ml Flush Syringe IV 10 ml BID PATSY Administration Sodium Chloride 10 ml 09/21/20 01:24 Sodium Chloride 0.9% 10 Ml Flush Syringe IV PRN PRN LINE FLUSH
--- NOTE | 2020-09-23 11:02 | Progress Note ---
Assessment and Plan Assessment and plan: This is a 50-year-old male with hypertension and heart failure admitted s/p cardiac arrest with JAMEY, UTI, lactic acidosis, hypotension. S/p cardiac arrest Acute hypoxic respiratory failure Acute kidney injury Urinary tract infection Leukocytosis Coagulopathic Hyperchloremia Metabolic acidosis Lactic acidosis Hypertension -[facility], cardiology, nephrology consulted, appreciate recommendations -s/p vasopressor support with Levophed, phenyl epinephrine, epinephrine -COVID 19 pcr (-) -Sedated with Fentayl and propofol gtt -TF -09/20 CXR shows cardiomegaly -09/21 echocardiogram shows severely dilated left ventricle, the ventricle systolic function severely decreased, borderline concentric left ventricle hype rtrophy, severe global hypokinesis of the left ventricle, LVEF 10 to 15%, mild MR, trace TR, RVSP is normal at 12 mmHg, trace pericardial effusion. -Accu-Cheks every 6 hours, SSI -Renal ultrasound pending -09/21 FENa calculated at 3.14 indicating ATN -09/21 CT head shows motion degradation of the image quality despite repeat imaging. However, there appears to be mild cerebral white matter disease as described without CT evidence of acute intracranial hemorrhage. -09/23 CT head shows loss of reyna-white differentiation diffusely likely due to diffuse cerebral edema, interval decrease in ventricular size size diffusely likely due to compression however no herniation identified, suspect developing i nfarct in the right occipital region without hemorrhage. Evaluation limited by artifact -09/23 MRI brain without contrast pending -09/23 MRA/MRV head without contrast pending -09/23 Bilateral carotid ultrasound pending -Hemoglobin A1c, hepatic panel and lipid panel pending -Trend CBC, BMP GI/DVT prophylaxis: PPI, heparin subcu, SCDs to bilateral lower extremities while in bed Disposition: ICU History Interval history: This is a 50-year-old male with heart failure and hypertension who presents to the emergency department on 09/21 with cardiac arrest after syncopal episode about 45 minutes prior to arrival to the emergency department. Upon arrival to the em ergency department patient was found to be hypotensive and subsequently started on pressors with significant improvement in his blood pressure. Work-up in the emergency department reveals lactic acidosis, initial troponin within normal limits however subsequent troponins were elevated, no obvious ischemic changes on EKG, UDS positive for marijuana, urinalysis significant for urinary tract infection, BUN/creatinine slightly elevated 26/21. CXR showed severe cardiomegaly with mild interstitial pulmonary edema. Patient was admitted to the hospital service with consults to [facility], cardiology and nephrology s/p cardiac arrest, UTI, JAMEY, lactic acidosis and hypotension. 09/22: Patient was started on a fentanyl drip and propofol drip was increased. At the time of my examination patient is on CMV tidal and 450, rate 20, PEEP 6 and FiO2 25%. Patient had a T-max of 101.9 overnight. Today we removed [place] catheter and femoral CVL. Plan to obtain PICC/PIV. Started TF today. 09/23: CT head obtained yesterday shows diffuse cerebral edema and a new suspected developing infarct in the right occipital region. Patient has worsening renal function today and hyperphosphatemia. The time of my examination patient was on CMV tidal 450, rate 20, PEEP 625% FiO2 and sedated on fentanyl at 2 mcg. [facility] to update family on the findings. CVA work-up ordered. Renal function worsened today. Hospitalist Physical - Constitutional Vitals: Temp Pulse Resp BP Pulse Ox 98.1 F 112 H 13 140/101 92 09/23/20 03:41 09/23/20 09:00 09/23/20 09:00 09/23/20 09:00 09/23/20 09:00 General appearance: Present: other (Unresponsive, on the vent) - EENT Eyes: Absent: PERRL ENT: poor dentition - Neck Neck: Absent: masses or JVD, cervical LAD - Respiratory Respiratory effort: normal Respiratory: bilateral: CTA - Cardiovascular Rhythm: regular Heart Sounds: Present: S1 & S2. Absent: systolic murmur, diastolic murmur - Extremities Extremities: no ischemia, pulses intact, pulses symmetrical, No edema, normal temperature, normal color Peripheral Pulses: within normal limits - Abdominal General gastrointestinal: soft, non-tender, non-distended, normal bowel sounds - Integumentary Integumentary: Present: warm, dry - Psychiatric Psychiatric: other (Sedated) - Neurologic Neurologic: other (Sedated, does not respond to painful stimuli, no cough/gag, pupils are reactive to light) - Allied Health Allied health notes reviewed: nursing, RT, social work HEART Score - HEART Score Troponin: Troponin T 1.880 ng/mL (0.00-0.029) H* D 09/21/20 04:34 Results - Labs CBC & Chem 7: 09/23/20 03:30 09/23/20 03:30 Labs: Laboratory Last Values WBC 14.2 K/mm3 (4.5-11.0) H 09/23/20 03:30 RBC 4.09 M/mm3 (3.65-5.03) 09/23/20 03:30 Hgb 12.5 gm/dl (11.8-15.2) 09/23/20 03:30 Hct 38.4 % (35.5-45.6) 09/23/20 03:30 MCV 94 fl (84-94) 09/23/20 03:30 MCH 31 pg (28-32) 09/23/20 03:30 MCHC 33 % (32-34) 09/23/20 03:30 RDW 16.5 % (13.2-15.2) H 09/23/20 03:30 Plt Count 126 K/mm3 (140-440) L 09/23/20 03:30 Lymph % (Auto) 8.2 % (13.4-35.0) L 09/23/20 03:30 [place] % (Auto) 7.8 % (0.0-7.3) H 09/23/20 03:30 Eos % (Auto) 0.1 % (0.0-4.3) 09/23/20 03:30 Baso % (Auto) 0.1 % (0.0-1.8) 09/23/20 03:30 Lymph # (Auto) 1.2 K/mm3 (1.2-5.4) 09/23/20 03:30 [place] # (Auto) 1.1 K/mm3 (0.0-0.8) H 09/23/20 03:30 Eos # (Auto) 0.0 K/mm3 (0.0-0.4) 09/23/20 03:30 Baso # (Auto) 0.0 K/mm3 (0.0-0.1) 09/23/20 03:30 Add Manual Diff Complete 09/20/20 23:02 Total Counted 100 09/20/20 23:02 Seg Neutrophils % 83.8 % (40.0-70.0) H 09/23/20 03:30 Seg Neuts % (Manual) 34.0 % (40.0-70.0) L 09/20/20 23:02 Lymphocytes % (Manual) 57.0 % (13.4-35.0) H 09/20/20 23:02 Monocytes % (Manual) 6.0 % (0.0-7.3) 09/20/20 23:02 Eosinophils % (Manual) 2.0 % (0.0-4.3) 09/20/20 23:02 Basophils % (Manual) 1.0 % (0.0-1.8) 09/20/20 23:02 Nucleated RBC % Not Reportable 09/20/20 23:02 Seg Neutrophils # 11.9 K/mm3 (1.8-7.7) H 09/23/20 03:30 Seg Neutrophils # Man 1.9 K/mm3 (1.8-7.7) 09/20/20 23:02 Band Neutrophils # 0.0 K/mm3 09/20/20 23:02 Lymphocytes # (Manual) 3.2 K/mm3 (1.2-5.4) 09/20/20 23:02 Abs React Lymphs (Man) 0.0 K/mm3 09/20/20 23:02 Monocytes # (Manual) 0.3 K/mm3 (0.0-0.8) 09/20/20 23:02 Eosinophils # (Manual) 0.1 K/mm3 (0.0-0.4) 09/20/20 23:02 Basophils # (Manual) 0.1 K/mm3 (0.0-0.1) 09/20/20 23:02 Metamyelocytes # 0.0 K/mm3 09/20/20 23:02 Myelocytes # 0.0 K/mm3 09/20/20 23:02 Promyelocytes # 0.0 K/mm3 09/20/20 23:02 Blast Cells # 0.0 K/mm3 09/20/20 23:02 WBC Morphology Not Reportable 09/20/20 23:02 Hypersegmented Neuts Not Reportable 09/20/20 23:02 Hyposegmented Neuts Not Reportable 09/20/20 23:02 Hypogranular Neuts Not Reportable 09/20/20 23:02 Smudge Cells Not Reportable 09/20/20 23:02 Toxic Granulation Not Reportable 09/20/20 23:02 Toxic Vacuolation Not Reportable 09/20/20 23:02 Dohle Bodies Not Reportable 09/20/20 23:02 Pelger-Huet Anomaly Not Reportable 09/20/20 23:02 Santosh Rods Not Reportable 09/20/20 23:02 Platelet Estimate Not Reportable 09/20/20 23:02 Clumped Platelets Not Reportable 09/20/20 23:02 Plt Clumps, EDTA Not Reportable 09/20/20 23:02 Large Platelets Not Reportable 09/20/20 23:02 Giant Platelets Not Reportable 09/20/20 23:02 Platelet Satelliting Not Reportable 09/20/20 23:02 Plt Morphology Comment Not Reportable 09/20/20 23:02 RBC Morphology Normal 09/20/20 23:02 Dimorphic RBCs Not Reportable 09/20/20 23:02 Polychromasia Not Reportable 09/20/20 23:02 Hypochromasia Not Reportable 09/20/20 23:02 Poikilocytosis Not Reportable 09/20/20 23:02 Anisocytosis Not Reportable 09/20/20 23:02 Microcytosis Not Reportable 09/20/20 23:02 Macrocytosis Not Reportable 09/20/20 23:02 Spherocytes Not Reportable 09/20/20 23:02 Pappenheimer Bodies Not Reportable 09/20/20 23:02 Sickle Cells Not Reportable 09/20/20 23:02 Target Cells Not Reportable 09/20/20 23:02 Tear Drop Cells Not Reportable 09/20/20 23:02 Ovalocytes Not Reportable 09/20/20 23:02 Helmet Cells Not Reportable 09/20/20 23:02 [place] Bodies Not Reportable 09/20/20 23:02 [place] Rings Not Reportable 09/20/20 23:02 Melly Cells Not Reportable 09/20/20 23:02 Bite Cells Not Reportable 09/20/20 23:02 Crenated Cell Not Reportable 09/20/20 23:02 Elliptocytes Not Reportable 09/20/20 23:02 Acanthocytes (Spur) Not Reportable 09/20/20 23:02 Rouleaux Not Reportable 09/20/20 23:02 Hemoglobin C Crystals Not Reportable 09/20/20 23:02 Schistocytes Not Reportable 09/20/20 23:02 Malaria parasites Not Reportable 09/20/20 23:02 Eduardo Bodies Not Reportable 09/20/20 23:02 Hem Pathologist Commnt No 09/20/20 23:02 PT 15.5 Sec. (12.2-14.9) H 09/22/20 08:26 INR 1.25 (0.87-1.13) H 09/22/20 08:26 APTT 30.6 Sec. (24.2-36.6) 09/21/20 10:08 ABG pH 7.496 (7.320-7.450) H 09/22/20 03:21 POC ABG pCO2 25.0 mmHg (32.0-48.0) L 09/22/20 03: ABG pCO2 40.5 mm Hg 09/21/20 02:15 POC ABG pO2 73.8 mmHg (83-108) L 09/22/20 03:21 ABG pO2 244.1 mm Hg (80.0-90.0) H 09/21/20 02:15 POC ABG HCO3 18.9 09/22/20 03:21 ABG HCO3 17.7 mmol/L (20.0-26.0) L 09/21/20 02:15 ABG O2 Saturation 96.3 (0-100) 09/22/20 03:21 ABG O2 Content 24.2 (0.0-44) 09/21/20 02:15 POC ABG Base Excess -2.6 09/22/20 03:21 ABG Base Excess -8.8 mmol/L (-2.0-3.0) L 09/21/20 02:15 ABG Hemoglobin 14.3 (12.0-17.5) 09/22/20 03:21 ABG Oxyhemoglobin 95.1 (94-98) 09/22/20 03:21 ABG Carboxyhemoglobin 1.3 % (0.0-5.0) 09/21/20 02:15 ABG Methemoglobin 0.3 (0.0-1.5) 09/22/20 03:21 ABG Sodium 142.9 mmol/L (136.0-145.0) 09/22/20 03:21 ABG Potassium 3.5 mmol/L (3.40-4.50) 09/22/20 03:21 ABG Chloride 115.0 mmol/L (98-107) H 09/22/20 03:21 ABG Glucose 154 mg/dL (65-95) H 09/22/20 03:21 Oxyhemoglobin 97.4 % (95.0-99.0) 09/21/20 02:15 Carboxyhemoglobin 0.9 (0.5-1.5) 09/22/20 03:21 FiO2 21 % 09/21/20 02:15 FiO2 % 25.0 09/22/20 03:21 Sodium 144 mmol/L (137-145) 09/23/20 03:30 Potassium 4.1 mmol/L (3.6-5.0) 09/23/20 03:30 Chloride 110.4 mmol/L (98-107) H 09/23/20 03:30 Carbon Dioxide 19 mmol/L (22-30) L 09/23/20 03:30 Anion Gap 19 mmol/L 09/23/20 03:30 BUN 56 mg/dL (9-20) H 09/23/20 03:30 Creatinine 4.7 mg/dL (0.8-1.3) H 09/23/20 03:30 Estimated GFR 16 ml/min 09/23/20 03:30 BUN/Creatinine Ratio 12 % 09/23/20 03:30 Glucose 148 mg/dL (75-100) H 09/23/20 03:30 POC Glucose 132 mg/dL (70-105) H 09/23/20 03:45 Lactic Acid 3.60 mmol/L (0.7-2.0) H* 09/21/20 15:54 Calcium 7.4 mg/dL (8.4-10.2) L 09/23/20 03:30 Phosphorus 5.80 mg/dL (2.5-4.5) H D 09/23/20 03:30 Total Bilirubin 0.30 mg/dL (0.1-1.2) 09/20/20 23:02 AST 59 units/L (5-40) H 09/20/20 23:02 ALT 30 units/L (7-56) 09/20/20 23:02 Alkaline Phosphatase 88 units/L (35-129) 09/20/20 23:02 Total Creatine Kinase 3606 units/L (55-170) H 09/21/20 15:54 Troponin T 1.880 ng/mL (0.00-0.029) H* D 09/21/20 04:34 Total Protein 7.0 g/dL (6.3-8.2) 09/20/20 23:02 Albumin 4.1 g/dL (3.9-5) 09/20/20 23:02 Albumin/Globulin Ratio 1.4 % 09/20/20 23:02 Triglycerides 43 mg/dL (2-149) 09/21/20 02:01 Cholesterol 152 mg/dL (50-199) 09/21/20 02:01 LDL Cholesterol Direct 92 mg/dL (50-130) 09/21/20 02:01 HDL Cholesterol 60 mg/dL (40-59) H 09/21/20 02:01 Cholesterol/HDL Ratio 2.53 % 09/21/20 02:01 Arterial Blood Glucose 154 mg/dL (65-95) H 09/22/20 03:21 Arterial Blood Ionized Calcium 4.5 mg/dL (4.6-5.3) L 09/22/20 03:21 Urine Color Yellow (Yellow) 09/21/20 14:27 Urine Turbidity Slightly-cloudy (Clear) 09/21/20 14:27 Urine pH 5.0 (5.0-7.0) 09/21/20 14:27 Ur Specific [place] 1.011 (1.003-1.030) 09/21/20 14:27 Urine Protein 100 mg/dl mg/dL (Negative) 09/21/20 14:27 Urine Glucose (UA) 50 mg/dL (Negative) 09/21/20 14:27 Urine Ketones Neg mg/dL (Negative) 09/21/20 14:27 Urine Blood Lg (Negative) 09/21/20 14:27 Urine Nitrite Neg (Negative) 09/21/20 14:27 Urine Bilirubin Neg (Negative) 09/21/20 14:27 Urine Urobilinogen < 2.0 mg/dL (<2.0) 09/21/20 14:27 Ur Leukocyte Esterase Neg (Negative) 09/21/20 14:27 Urine WBC (Auto) 12.0 /HPF (0.0-6.0) H 09/21/20 14:27 Urine RBC (Auto) 48.0 /HPF (0.0-6.0) 09/21/20 14:27 U Epithel Cells (Auto) < 1.0 /HPF (0-13.0) 09/21/20 14:27 Urine Bacteria (Auto) 2+ /HPF (Negative) 09/21/20 14:27 Urine Mucus Few /HPF 09/21/20 14:27 Urine Yeast (Budding) 2+ /HPF 09/20/20 23:35 Urine Sperm 1+ /HPF (SOFTWARE [employer]OLS ENGINEER) 09/20/20 23:35 Urine Creatinine 60.4 mg/dL (0.1-20.0) H 09/21/20 14:27 Urine Sodium 108 mmol/L 09/21/20 14:27 Urine Urea Nitrogen 305 09/21/20 14:27 Urine Opiates Screen Presumptive negative 09/20/20 Unknown Urine Methadone Screen Presumptive negative 09/20/20 Unknown Ur Barbiturates Screen Presumptive negative 09/20/20 Unknown Ur Phencyclidine Scrn Presumptive negative 09/20/20 Unknown Ur Amphetamines Screen Presumptive negative 09/20/20 Unknown U Benzodiazepines Scrn Presumptive negative 09/20/20 Unknown Urine Cocaine Screen Presumptive negative 09/20/20 Unknown U Marijuana (THC) Screen Presumptive positive 09/20/20 Unknown Drugs of Abuse Note Disclamer 09/20/20 Unknown Coronavirus (PCR) Negative (Negative) 09/21/20 10:13 Microbiology: Microbiology 09/21/20 02:01 Peripheral/Venous Blood Culture - Preliminary NO GROWTH AFTER 48 HOURS 09/21/20 02:03 Peripheral/Venous Blood Culture - Preliminary NO GROWTH AFTER 48 HOURS 09/20/20 23:35 Urine,Clean Catch Urine Culture - Preliminary 09/20/20 23:35 Tracheal Aspirate Sputum Culture - Preliminary [place]/IV: Voiding Method Condom Catheter Active Medications - Current Medications Current Medications: Generic Name Dose Route Start Last Admin Trade Name Freq PRN Reason Stop Dose Admin Acetaminophen 650 mg 09/21/20 15:51 09/22/20 23:55 Acetaminophen 325 Mg/10.15 Ml Oral Liqd Unit Dose FEEDTUBE 650 mg Q6H PRN Administration Pain, Mild (1-3) Lipase/Protease/Amylase 1 each 09/22/20 08:53 Lipase 10,500/Protease 25,000/Amylase 43,750 (Units) Dr Greer FEEDTUBE PRN PRN For Clogged Feeding Tube Aspirin 325 mg 09/21/20 16:00 09/23/20 09:06 Aspirin 325 Mg Tab PO 325 mg QDAY PATSY Administration Atorvastatin Calcium 40 mg 09/23/20 22:00 Atorvastatin 40 Mg Tab PO QHS PATSY Famotidine 20 mg 09/22/20 10:00 09/23/20 09:06 Famotidine 20 Mg/2 Ml Inj IV 20 mg QDAY PATSY Administration Fentanyl 50 mcg 09/22/20 11:30 Fentanyl 100 Mcg/2 Ml Inj IV Q10MIN PRN ANALGESIA Heparin Sodium (Porcine) 5,000 unit 09/21/20 22:00 09/23/20 09:06 Heparin 5,000 Unit/1 Ml Vial SUB-Q 5,000 unit Q12HR PATSY Administration Hydrophilic Ointment 1 applic 09/20/20 22:59 Lip Therapy Vaseline TP Q2HR PRN Dry Lips Ceftriaxone Sodium 1 gm in 50 mls @ 100 mls/hr 09/21/20 10:00 09/23/20 09:06 Rocephin/Ns 1 Gm/50 Ml IV 100 mls/hr Q24HR PATSY Administration Protocol Norepinephrine 4 mg in 250 mls @ 7.5 mls/hr 09/21/20 05:00 Levophed Drip 4 Mg/Ns 250 Ml IV TITR PATSY Protocol 2 MCG/MIN Phenylephrine HCl 100 mg/ 100 mls @ 24 mls/hr 09/21/20 05:15 09/21/20 11:31 Sodium Chloride IV 0 mcg/min TITR PATSY 0 mls/hr Titration Protocol 400 MCG/MIN Dextrose/Sodium Chloride 1,000 mls @ 75 mls/hr 09/21/20 11:00 09/23/20 01:16 D5/0.45ns IV 75 mls/hr DIRECT PATSY Administration Propofol 1,000 mg in 100 mls @ 3.063 mls/hr 09/21/20 22:00 09/22/20 16:19 Diprivan 10 Mg/Ml IV 0 mcg/kg/min TITR PATSY 0 mls/hr Titration Protocol 5 MCG/KG/MIN Fentanyl Citrate 2,000 mcg in 100 mls @ 5.105 mls/hr 09/22/20 11:30 09/23/20 03:09 Fentanyl Drip Premix IV 2 mcg/kg/hr TITR PATSY 10.21 mls/hr Administration Protocol 1 MCG/KG/HR Metoprolol Tartrate 2.5 mg 09/22/20 12:00 09/23/20 06:32 Metoprolol Tartrate 5 Mg/5 Ml Inj IV 2.5 mg Q6HR PATSY Administration Multi-Ingred Cream/Lotion/Oil/Oint 1 applic 09/20/20 22:59 Mineral Oil/Petrolatum, White Ophth Oint 3.5 Gm OU Q4HR PRN Dry Eye(s) Ondansetron HCl 4 mg 09/21/20 01:24 Ondansetron 4 Mg/2 Ml Inj IV Q8H PRN Nausea And Vomiting Simple Syrup 15 ml 09/22/20 08:53 Simple Syrup 15 Ml FEEDTUBE PRN PRN Hypoglycemia Simple Syrup 30 ml 09/22/20 08:53 Simple Syrup 15 Ml FEEDTUBE PRN PRN Hypoglycemia Sodium Bicarbonate 325 mg 09/22/20 08:53 Sodium Bicarbonate 325 Mg Tab FEEDTUBE PRN PRN For Clogged Feeding Tube Sodium Chloride 10 ml 09/21/20 10:00 09/23/20 09:06 Sodium Chloride 0.9% 10 Ml Flush Syringe IV 10 ml BID PATSY Administration Sodium Chloride 10 ml 09/21/20 01:24 Sodium Chloride 0.9% 10 Ml Flush Syringe IV PRN PRN LINE FLUSH Nutrition/Malnutrition Assess - Dietary Evaluation Nutrition/Malnutrition Findings: Nutrition Notes Start: 09/21/20 08:17 Freq: Status: Active Protocol: Document 09/22/20 08:32 CW (Rec: 09/22/20 08:52 CW [id number]) Nutrition Notes Initial or Follow up Reassessment Current Diagnosis Acute Kidney Injury, Hypertension,Heart Failure, Respiratory Failure Other Pertinent Diagnosis Cardiac Arrest, UTI, anoxic brain injury Current Diet TF Labs/Tests 09/21/2020 Na 146 K 3.5 BUN 37 Cr 2.8 Pertinent Medications propofol at 25.504 ml/hr (673 kcal) D5 1/2 NS at 75 ml/hr Dobutamine, Levophed, epinephrine, phenylephrine NS 2 L Height 6 ft Weight 102.1 kg [place] Body Weight (kg) 80.90 BMI 30.5 Weight Status Obese Subjective/Other Information MD consult for write/manage TF . Pt remains on mechanical vent. TF adjusted for ~700 kcal of propofol provided. Pt not meeting protein needs at this time d/t JAMEY Percent of energy/protein needs met: 0%/0% Burn Absent Trauma Absent GI Symptoms None Current % PO Negligible Minimum of two criteria No physical signs of malnutrition #1 Nutrition Diagnosis Inadequate oral intake Diagnosis Progress(for reassessment Continues documentation) Is patient on ventilator? Yes Is Patient Ambulatory and/or Out of Bed No REE-(Sebastian-St. Jeor-confined to bed) 2318.184 Kcal/Kg value to use for calculation 19 Approximate Energy Requirements Using 1940 kcal/Kg Calculation Used for Recommendations Kcal/kg Additional Notes Protein needs are >162g (>2g/ kgIBW) Fluid needs are 1ml/kcal Nutrition Intervention Change Diet Order: Initiate TF Nutrition Support: Vital AF 1.2 at 45 ml/hr with a free water flush of 275 ml q4h for hypernatremia. Once hypernatremia resolves, continue free water flush of 200 ml q4h. Kcal 1,296 Protein (gm) 81 Fluid (mL) 876 Goal #1 Meet at least 75% of kcal and protein needs as medically feasible Anticipated Discharge Needs: Unable to determine at this time Follow-Up By: 09/25/20 Additional Comments F/U for TF at goal, TF tolerance, vent status, propofol rate
--- NOTE | 2020-09-23 12:10 | Progress Note ---
Assessment and Plan - Patient Problems (1) Cardiopulmonary arrest Current Visit: Yes Status: Acute Plan to address problem: Patient has severe cardiomegaly on chest x-ray, underlying left bundle branch block, which suggest a longstanding underlying cardiomyopathy resulting in a primary cardiac arrest. Echocardiogram showed severe left ventricular systolic dysfunction, ejection fraction 10 to 15%. In the setting of a prolonged downtime in the field of 45 minutes, the medium and long-term prognosis is very poor. Subjective Date of service: 09/23/20 Principal diagnosis: JAMEY Interval history: The patient is unresponsive, on the vent. On classroom monitor, there is a normal sinus rhythm at 92. Blood pressure is 147 systolic. Objective Vital Signs Temp Pulse Pulse Resp BP Pulse Ox 09/23/20 09:00 112 H 13 140/101 92 09/23/20 08:50 109 H 20 93 09/23/20 08:30 106 H 18 140/91 96 09/23/20 08:00 105 H 20 135/96 97 09/23/20 07:30 102 H 10 L 128/89 96 09/23/20 07:00 95 H 22 120/84 95 09/23/20 06:32 91 H 129/83 09/23/20 06:30 91 H 15 129/83 98 09/23/20 06:00 94 H 13 132/85 97 09/23/20 05:30 92 H 12 126/81 99 09/23/20 05:00 92 H 17 117/77 98 09/23/20 04:41 88 21 112/71 98 09/23/20 04:00 85 92 H 15 108/72 97 09/23/20 03:41 98.1 F 09/23/20 03:30 79 14 105/71 97 09/23/20 03:00 84 16 111/70 98 09/23/20 02:30 74 13 97/62 96 09/23/20 02:00 78 14 109/64 96 09/23/20 01:30 75 11 L 100/65 97 09/23/20 01:00 86 15 104/66 96 09/23/20 00:30 76 20 104/66 97 09/23/20 00:11 81 96/69 96 09/23/20 00:01 82 96/69 09/23/20 00:00 85 92 H 20 96/69 97 09/22/20 23:59 100.6 F H 09/22/20 23:30 86 11 L 102/68 96 09/22/20 23:24 86 15 103/65 95 09/22/20 23:20 86 15 103/65 96 09/22/20 23:10 87 9 L 99/66 96 09/22/20 23:00 89 14 99/66 96 09/22/20 22:50 87 9 L 101/67 95 09/22/20 22:40 85 10 L 103/64 93 09/22/20 22:30 83 10 L 103/64 95 09/22/20 22:20 83 16 100/64 96 09/22/20 22:10 84 17 100/65 94 09/22/20 22:00 85 10 L 100/65 94 09/22/20 21:50 83 9 L 93/66 96 09/22/20 21:40 81 13 92/61 95 09/22/20 21:30 83 17 92/61 95 09/22/20 21:20 82 13 93/61 95 09/22/20 21:10 82 13 92/60 96 09/22/20 21:00 83 20 92/60 95 09/22/20 20:50 85 15 96/60 96 09/22/20 20:40 83 13 95/62 96 09/22/20 20:30 84 10 L 95/62 95 09/22/20 20:20 83 12 93/65 96 09/22/20 20:10 86 11 L 97/62 94 09/22/20 20:06 97/62 93 09/22/20 20:00 88 92 H 25 H 97/62 96 09/22/20 19:58 98.9 F 09/22/20 19:50 87 12 97/66 94 09/22/20 19:40 88 17 100/61 94 09/22/20 19:30 86 15 100/61 95 09/22/20 19:20 87 21 94/61 95 09/22/20 19:10 85 21 98/64 94 09/22/20 19:00 87 15 89/60 93 09/22/20 18:50 88 14 100/61 95 07 18:40 87 13 94/64 95 09/22/20 18:30 90 20 94/64 95 09/22/20 18:20 90 22 96/62 94 05/07/21 18:10 92 H 18 97/64 93 09/22/20 18:00 90 13 97/64 93 09/22/20 17:50 89 18 99/69 95 09/22/20 17:47 99/69 09/22/20 17:40 91 H 14 95/63 94 09/22/20 17:30 93 H 19 95/63 94 09/22/20 17:20 92 H 12 101/65 93 09/22/20 17:10 92 H 13 93/63 92 09/22/20 17:00 92 H 20 93/63 92 09/22/20 16:50 92 H 17 99/64 92 09/22/20 16:40 90 10 L 93/64 93 09/22/20 16:30 91 H 16 93/64 91 09/22/20 16:20 88 13 90/61 94 09/22/20 16:10 89 16 88/50 92 09/22/20 16:05 99.8 F H 09/22/20 16:00 89 117 H 11 L 88/50 92 09/22/20 15:50 87 22 98/55 93 09/22/20 15:40 87 16 90/55 92 09/22/20 15:30 87 14 90/55 89 07 15:20 88 18 93/52 91 09/22/20 15:10 89 20 89/58 91 09/22/20 15:00 90 14 89/58 92 09/22/20 14:50 90 12 99/58 93 09/22/20 14:40 90 15 91/58 95 09/22/20 14:30 90 15 91/58 95 07 14:20 92 H 10 L 97/55 94 09/22/20 14:10 93 H 14 96/59 94 09/22/20 14:00 92 H 13 96/59 94 09/22/20 13:50 91 H 13 97/63 93 09/22/20 13:40 92 H 15 99/59 92 09/22/20 13:30 93 H 15 99/59 91 09/22/20 13:20 92 H 15 97/50 91 09/22/20 13:10 94 H 13 109/55 91 09/22/20 13:00 95 H 15 109/55 91 09/22/20 12:50 97 H 18 110/56 91 09/22/20 12:40 97 H 23 99/55 93 09/22/20 12:30 99 H 27 H 99/55 93 09/22/20 12:21 98.0 F 09/22/20 12:20 101 H 29 H 95/60 95 09/22/20 12:10 102 H 32 H 94/67 94 - Physical Examination General: Other (intubated, unresponsive, on the vent) HEENT: Positive: Other (Pupils fixed) Neck: Positive: neck supple Cardiac: Positive: Reg Rate and Rhythm Lungs: Positive: Decreased Breath Sounds Neuro: Positive: Weakness (Unresponsive, on the vent) Abdomen: Positive: Soft Skin: Positive: Clear Extremities: Absent: edema - Labs and Meds CBC 09/23/20 Range/Units 03:30 WBC 14.2 H (4.5-11.0) K/mm3 RBC 4.09 (3.65-5.03) M/mm3 Hgb 12.5 (11.8-15.2) gm/dl Hct 38.4 (35.5-45.6) % Plt Count 126 L (140-440) K/mm3 Lymph # (Auto) 1.2 (1.2-5.4) K/mm3 Hartley # (Auto) 1.1 H (0.0-0.8) K/mm3 Eos # (Auto) 0.0 (0.0-0.4) K/mm3 Baso # (Auto) 0.0 (0.0-0.1) K/mm3 Comprehensive Metabolic Panel 09/23/20 Range/Units 03:30 Sodium 144 (137-145) mmol/L Potassium 4.1 (3.6-5.0) mmol/L Chloride 110.4 H (98-107) mmol/L Carbon Dioxide 19 L (22-30) mmol/L BUN 56 H (9-20) mg/dL Creatinine 4.7 H (0.8-1.3) mg/dL Glucose 148 H (75-100) mg/dL Calcium 7.4 L (8.4-10.2) mg/dL
[2020-09-23] MEDS: ACETAMINOPHEN 325 MG/10.15 ML ORAL LIQD UNIT DOSE FEEDTUBE PRN ×3 (12:44→23:45)
[2020-09-23] MEDS ORDERED: METOPROLOL TARTRATE 5 MG/5 ML INJ IV ONE ×2 (13:00→19:24)
[2020-09-23] MEDS: hydrALAZINE 20 MG/1 ML INJ IV SCH ×3 (13:03→21:04)
[2020-09-24] MEDS: hydrALAZINE 20 MG/1 ML INJ IV SCH ×6 (03:00→21:25)
[2020-09-24 04:35] LABS: Basophils % (Auto) 0.1 % (0.0-1.8); Hematocrit 43.6 % (35.5-45.6); Lymphocytes # (Auto) 0.8 K/mm3 (1.2-5.4); Lymphocytes % (Auto) 5.9 % (13.4-35.0); Mean Corpuscular HGB Conc 32 % (32-34); Mean Corpuscular Volume 94 fl (84-94); Monocytes # (Auto) 0.9 K/mm3 (0.0-0.8); Monocytes % (Auto) 6.5 % (0.0-7.3); Platelet Count 135 K/mm3 (140-440); Red Blood Count 4.63 M/mm3 (3.65-5.03); Red Cell Distribution Width 16.6 % (13.2-15.2)
[2020-09-24 04:51] LABS: Calcium 8.3 mg/dL (8.4-10.2)
[2020-09-24] MEDS: METOPROLOL TARTRATE 5 MG/5 ML INJ IV SCH ×4 (06:12→23:34)
[2020-09-24] MEDS: ASPIRIN 325 MG TAB PO SCH (09:10)
[2020-09-24] MEDS: HEPARIN 5,000 UNIT/1 ML VIAL SUB-Q SCH ×2 (09:11→21:25)
[2020-09-24] MEDS: FAMOTIDINE 20 MG/2 ML INJ IV SCH (09:11)
[2020-09-24] MEDS: cefTRIAXone/NS 1 GM/50 ML 1 GM/50 ML BAG IV SCH (09:12)
--- NOTE | 2020-09-24 10:43 | Event Note ---
Date: 09/24/20 Long discussion this am on the phone with mother and girlfriend. Explained to them that the patient is not going to wake up and be as functional as he was prior to this event. Explained that the likelihood of him waking up period was slim to none. He has had extensive damage to the brain from anoxia and lack of blood flow. This was told to the mother prior to the new CT but reiterated again this am. I also explained that the damage to his heart is not going to improve and given his mental state he is not a candidate for invasive interv ention or diagnostic testing. His renal function is 50/50, and yes he is still making urine but his numbers are not normal. I asked the family to focus on quality of life vs quantity of life and I explained to them that beating on his chest, shocking him, a feeding tube or tracheostomy would not improve his neuro status or his heart or his kidneys. His prognosis is very very poor. I explained the two routes of aggressive measures vs hospice and gave my personal opinion if this was my own family member. I also explained to them that as I physician I cannot tell them what to do but only provide them with as much information as possible to help them make an informed decision. They are going to speak with the rest of his family. They have also requested that the patient's father and the patient's daughter be allowed to visit on tomorrow (09/25/20). I will ask if this is feasible given the current state but also mindful of the current global pandemic and the safety of our patient, staff and the family.
--- NOTE | 2020-09-24 10:46 | Progress Note ---
Assessment and Plan 50 y/o male with 45 minute cardiac arrest, now on 3 vasopressors, intubated and not sedated, unresponsive. 09/24/20: No new recs for today. MRI not done on yesterday. Spoke with mother and girlfriend over the phone, please see my event note. Follow up any new renal recs for today. Goal directed therapy for CHF. Very very poor prognosis, hospice appropriate. 09/23/20: Overall prognosis is very very poor. Multisystem organ failure (Neuro, Cardiac, Renal). Given new evidence of edema, confirms what was suspected of anoxic brain injury. Family did visit on yesterday. Will call today to given update on CT and what this means. MRI pending in regards to new stroke but not sure what therapy patient would be a candidate for. 09/22/20: Echo reveals significant systolic heart failure, likely not new. May have been cause of "collapse". patient does not have defibrillator or life vest. Await cardiology assessment but given mental state, doubt a candidate for any invasive procedures. Blood sugars are stable on D5 1/2 normal saline at 75, but now that off pressors will feed. Will remove central line and obtain midline vs picc. No documentation if mother visited yesterday or not. Will need to call her again to discuss echo results and persistent vegetative state. Likely is anoxic from prolonged downtime. Very very Poor Prognosis. WIll discuss goal directed therapy for CHF (ray, statin, beta db, may spironol actone) 1. Echo 2. May need repeat head CT in 48-72 hours 3. Change Fluids to D5 1/2 normal with fsbs q1 hours until 3 consecutive sugars >180 4. Wean Epi off first and then wean off the other pressors. Guarded to poor prognosis. CCT 31 minutes. Subjective Date of service: 09/24/20 Principal diagnosis: JAMEY Interval history: No acute events. Mental state is the same. Objective Vital Signs - 12hr 09/23/20 09/23/20 09/23/20 23:00 23:30 23:44 Temperature Pulse Rate 105 H 82 100 H Pulse Rate [ From Monitor] Respiratory 19 15 Rate Blood Pressure 143/95 157/86 157/86 O2 Sat by Pulse 96 97 Oximetry 09/23/20 09/24/20 09/24/20 23:50 00:00 00:25 Temperature 100.6 F H 99.3 F Pulse Rate 104 H 87 Pulse Rate [ 109 H From Monitor] Respiratory 11 L Rate Blood Pressure 150/81 150/81 O2 Sat by Pulse 96 97 Oximetry 09/24/20 09/24/20 09/24/20 00:30 01:00 01:30 Temperature Pulse Rate 89 103 H 85 Pulse Rate [ From Monitor] Respiratory 22 21 22 Rate Blood Pressure 146/90 145/93 145/88 O2 Sat by Pulse 98 97 97 Oximetry 09/24/20 09/24/20 09/24/20 02:00 02:30 03:00 Temperature Pulse Rate 88 93 H 103 H Pulse Rate [ From Monitor] Respiratory 20 20 20 Rate Blood Pressure 145/90 149/94 146/93 O2 Sat by Pulse 97 97 98 Oximetry 09/24/20 09/24/20 09/24/20 03:30 03:56 04:00 Temperature 101.4 F H Pulse Rate 111 H 112 H Pulse Rate [ 109 H From Monitor] Respiratory 24 22 Rate Blood Pressure 156/99 136/92 O2 Sat by Pulse 98 96 Oximetry 09/24/20 09/24/20 09/24/20 04:11 04:30 05:00 Temperature Pulse Rate 108 H 116 H 109 H Pulse Rate [ From Monitor] Respiratory 17 20 Rate Blood Pressure 136/92 133/100 140/98 O2 Sat by Pulse 97 97 97 Oximetry 09/24/20 09/24/20 09/24/20 05:30 06:00 06:12 Temperature Pulse Rate 118 H 94 H 109 H Pulse Rate [ From Monitor] Respiratory 25 H 20 Rate Blood Pressure 157/95 157/95 158/94 O2 Sat by Pulse 96 96 Oximetry 09/24/20 09/24/20 09/24/20 06:30 07:00 07:03 Temperature Pulse Rate 78 91 H 87 Pulse Rate [ From Monitor] Respiratory 17 16 Rate Blood Pressure 137/83 139/87 O2 Sat by Pulse 94 94 Oximetry 09/24/20 09/24/20 09/24/20 07:30 08:00 08:30 Temperature 99.2 F Pulse Rate 95 H 101 H 85 Pulse Rate [ 97 H From Monitor] Respiratory 22 19 15 Rate Blood Pressure 147/91 145/91 151/88 O2 Sat by Pulse 94 95 95 Oximetry 09/24/20 09/24/20 09/24/20 08:39 09:00 09:10 Temperature Pulse Rate 111 H 108 H 90 Pulse Rate [ From Monitor] Respiratory 18 Rate Blood Pressure 151/88 145/96 145/96 O2 Sat by Pulse 94 94 Oximetry 09/24/20 09:30 Temperature Pulse Rate 95 H Pulse Rate [ From Monitor] Respiratory 23 Rate Blood Pressure 158/93 O2 Sat by Pulse 93 Oximetry Constitutional: comatose Eyes: non-icteric ENT: other (orally intubated and sedated) Neck: supple Effort: normal Ascultation: Bilateral: clear Percussion: Bilateral: not dull Tactile fremitus: Bilateral: normal Cardiovascular: other (sinus tachycardia) Gastrointestinal: normoactive bowel sounds, soft CBC and BMP: 09/24/20 04:20 09/24/20 04:30 ABG, PT/INR, D-dimer: ABG ABG pH 7.409 (7.320-7.450) 09/24/20 02:57 POC ABG pCO2 30.0 mmHg (32.0-48.0) L 09/24/20 02:57 ABG pCO2 40.5 mm Hg 09/21/20 02:15 POC ABG pO2 75.1 mmHg (83-108) L 09/24/20 02:57 ABG pO2 244.1 mm Hg (80.0-90.0) H 09/21/20 02:15 POC ABG HCO3 18.5 09/24/20 02:57 ABG O2 Saturation 95.9 (0-100) 09/24/20 02:57 PT/INR, D-dimer PT 15.5 Sec. (12.2-14.9) H 09/22/20 08:26 INR 1.25 (0.87-1.13) H 09/22/20 08:26 Abnormal lab findings: Abnormal Labs 09/20/20 09/20/20 09/20/20 23:02 23:02 23:02 WBC RBC Hgb Hct MCV 96 H RDW 15.8 H Plt Count Lymph % (Auto) Winn % (Auto) Lymph # (Auto) Winn # (Auto) Seg Neutrophils % Seg Neuts % (Manual) 34.0 L Lymphocytes % (Manual) 57.0 H Seg Neutrophils # PT INR 1.14 H ABG pH POC ABG pCO2 POC ABG pO2 ABG pO2 ABG HCO3 ABG O2 Saturation ABG Base Excess ABG Oxyhemoglobin ABG Sodium ABG Potassium ABG Chloride ABG Glucose Sodium Potassium Chloride Carbon Dioxide 21 L BUN 26 H Creatinine 2.1 H Glucose 227 H POC Glucose Lactic Acid Calcium 10.3 H Phosphorus AST 59 H Total Creatine Kinase Troponin T HDL Cholesterol Arterial Blood Glucose Arterial Blood Ionized Calcium Urine WBC (Auto) Urine Creatinine 09/20/20 09/20/20 09/21/20 23:15 23:35 01:20 WBC RBC Hgb Hct MCV RDW Plt Count Lymph % (Auto) Winn % (Auto) Lymph # (Auto) Winn # (Auto) Seg Neutrophils % Seg Neuts % (Manual) Lymphocytes % (Manual) Seg Neutrophils # PT INR ABG pH POC ABG pCO2 POC ABG pO2 ABG pO2 ABG HCO3 ABG O2 Saturation ABG Base Excess ABG Oxyhemoglobin ABG Sodium ABG Potassium ABG Chloride ABG Glucose Sodium Potassium Chloride Carbon Dioxide BUN Creatinine Glucose POC Glucose 197 H Lactic Acid 8.70 H* Calcium Phosphorus AST Total Creatine Kinase Troponin T HDL Cholesterol Arterial Blood Glucose Arterial Blood Ionized Calcium Urine WBC (Auto) 47.0 H Urine Creatinine 09/21/20 09/21/20 09/21/20 02:01 02:15 04:25 WBC RBC Hgb Hct MCV RDW Plt Count Lymph % (Auto) Winn % (Auto) Lymph # (Auto) Winn # (Auto) Seg Neutrophils % Seg Neuts % (Manual) Lymphocytes % (Manual) Seg Neutrophils # PT INR ABG pH 7.258 L POC ABG pCO2 POC ABG pO2 ABG pO2 244.1 H ABG HCO3 17.7 L ABG O2 Saturation 99.4 H ABG Base Excess -8.8 L ABG Oxyhemoglobin ABG Sodium ABG Potassium ABG Chloride ABG Glucose Sodium Potassium Chloride Carbon Dioxide BUN Creatinine Glucose POC Glucose 65 L Lactic Acid Calcium Phosphorus AST Total Creatine Kinase Troponin T 0.865 H* D HDL Cholesterol 60 H Arterial Blood Glucose Arterial Blood Ionized Calcium Urine WBC (Auto) Urine Creatinine 09/21/20 09/21/20 09/21/20 04:34 04:34 07:03 WBC RBC Hgb 16.9 H D Hct 51.3 H D MCV RDW Plt Count Lymph % (Auto) Winn % (Auto) Lymph # (Auto) Winn # (Auto) Seg Neutrophils % Seg Neuts % (Manual) Lymphocytes % (Manual) Seg Neutrophils # PT INR ABG pH POC ABG pCO2 POC ABG pO2 ABG pO2 ABG HCO3 ABG O2 Saturation ABG Base Excess ABG Oxyhemoglobin ABG Sodium ABG Potassium ABG Chloride ABG Glucose Sodium Potassium Chloride Carbon Dioxide BUN Creatinine Glucose POC Glucose Lactic Acid 3.00 H* Calcium Phosphorus AST Total Creatine Kinase Troponin T 1.880 H* D HDL Cholesterol Arterial Blood Glucose Arterial Blood Ionized Calcium Urine WBC (Auto) Urine Creatinine 09/21/20 09/21/20 09/21/20 07:03 07:32 07:53 WBC 19.2 H RBC 5.31 H Hgb 16.0 H Hct 49.0 H MCV RDW 15.7 H Plt Count Lymph % (Auto) Winn % (Auto) Lymph # (Auto) Winn # (Auto) Seg Neutrophils % Seg Neuts % (Manual) Lymphocytes % (Manual) Seg Neutrophils # PT 16.3 H INR 1.31 H ABG pH POC ABG pCO2 POC ABG pO2 ABG pO2 ABG HCO3 ABG O2 Saturation ABG Base Excess ABG Oxyhemoglobin ABG Sodium ABG Potassium ABG Chloride ABG Glucose Sodium Potassium Chloride Carbon Dioxide BUN Creatinine Glucose POC Glucose 60 L Lactic Acid Calcium Phosphorus AST Total Creatine Kinase Troponin T HDL Cholesterol Arterial Blood Glucose Arterial Blood Ionized Calcium Urine WBC (Auto) Urine Creatinine 09/21/20 09/21/20 09/21/20 07:53 09:30 10:08 WBC RBC Hgb Hct MCV RDW Plt Count Lymph % (Auto) Winn % (Auto) Lymph # (Auto) Winn # (Auto) Seg Neutrophils % Seg Neuts % (Manual) Lymphocytes % (Manual) Seg Neutrophils # PT 15.4 H INR 1.24 H ABG pH POC ABG pCO2 POC ABG pO2 ABG pO2 ABG HCO3 ABG O2 Saturation ABG Base Excess ABG Oxyhemoglobin ABG Sodium ABG Potassium ABG Chloride ABG Glucose Sodium 146 H Potassium 3.5 L Chloride 109.6 H Carbon Dioxide 20 L BUN 37 H Creatinine 2.8 H Glucose 127 H POC Glucose Lactic Acid 3.00 H* Calcium Phosphorus AST Total Creatine Kinase Troponin T HDL Cholesterol Arterial Blood Glucose Arterial Blood Ionized Calcium Urine WBC (Auto) Urine Creatinine 09/21/20 09/21/20 09/21/20 10:34 11:22 11:44 WBC RBC Hgb Hct MCV RDW Plt Count Lymph % (Auto) Winn % (Auto) Lymph # (Auto) Winn # (Auto) Seg Neutrophils % Seg Neuts % (Manual) Lymphocytes % (Manual) Seg Neutrophils # PT INR ABG pH POC ABG pCO2 25.9 L POC ABG pO2 196.9 H ABG pO2 ABG HCO3 ABG O2 Saturation ABG Base Excess ABG Oxyhemoglobin 98.4 H ABG Sodium ABG Potassium 3.3 L ABG Chloride 113.0 H ABG Glucose 130 H Sodium Potassium Chloride Carbon Dioxide BUN Creatinine Glucose POC Glucose 126 H 127 H Lactic Acid Calcium Phosphorus AST Total Creatine Kinase Troponin T HDL Cholesterol Arterial Blood Glucose 130 H Arterial Blood Ionized Calcium Urine WBC (Auto) Urine Creatinine 09/21/20 09/21/20 09/21/20 14:27 14:27 15:09 WBC RBC Hgb Hct MCV RDW Plt Count Lymph % (Auto) Winn % (Auto) Lymph # (Auto) Winn # (Auto) Seg Neutrophils % Seg Neuts % (Manual) Lymphocytes % (Manual) Seg Neutrophils # PT INR ABG pH POC ABG pCO2 POC ABG pO2 ABG pO2 ABG HCO3 ABG O2 Saturation ABG Base Excess ABG Oxyhemoglobin ABG Sodium ABG Potassium ABG Chloride ABG Glucose Sodium Potassium Chloride Carbon Dioxide BUN Creatinine Glucose POC Glucose 135 H Lactic Acid Calcium Phosphorus AST Total Creatine Kinase Troponin T HDL Cholesterol Arterial Blood Glucose Arterial Blood Ionized Calcium Urine WBC (Auto) 12.0 H Urine Creatinine 60.4 H 09/21/20 09/21/20 09/21/20 15:54 15:54 16:13 WBC RBC Hgb Hct MCV RDW Plt Count Lymph % (Auto) Winn % (Auto) Lymph # (Auto) Winn # (Auto) Seg Neutrophils % Seg Neuts % (Manual) Lymphocytes % (Manual) Seg Neutrophils # PT INR ABG pH POC ABG pCO2 POC ABG pO2 ABG pO2 ABG HCO3 ABG O2 Saturation ABG Base Excess ABG Oxyhemoglobin ABG Sodium ABG Potassium ABG Chloride ABG Glucose Sodium Potassium Chloride Carbon Dioxide BUN Creatinine Glucose POC Glucose 131 H Lactic Acid 3.60 H* Calcium Phosphorus AST Total Creatine Kinase 3606 H Troponin T HDL Cholesterol Arterial Blood Glucose Arterial Blood Ionized Calcium Urine WBC (Auto) Urine Creatinine 09/21/20 09/21/20 09/21/20 18:02 19:48 20:57 WBC RBC Hgb Hct MCV RDW Plt Count Lymph % (Auto) Winn % (Auto) Lymph # (Auto) Winn # (Auto) Seg Neutrophils % Seg Neuts % (Manual) Lymphocytes % (Manual) Seg Neutrophils # PT INR ABG pH POC ABG pCO2 POC ABG pO2 ABG pO2 ABG HCO3 ABG O2 Saturation ABG Base Excess ABG Oxyhemoglobin ABG Sodium ABG Potassium ABG Chloride ABG Glucose Sodium Potassium Chloride Carbon Dioxide BUN Creatinine Glucose POC Glucose 139 H 184 H 173 H Lactic Acid Calcium Phosphorus AST Total Creatine Kinase Troponin T HDL Cholesterol Arterial Blood Glucose Arterial Blood Ionized Calcium Urine WBC (Auto) Urine Creatinine 09/21/20 09/21/20 09/21/20 22:02 22:27 23:54 WBC RBC Hgb Hct MCV RDW Plt Count Lymph % (Auto) Winn % (Auto) Lymph # (Auto) Winn # (Auto) Seg Neutrophils % Seg Neuts % (Manual) Lymphocytes % (Manual) Seg Neutrophils # PT INR ABG pH POC ABG pCO2 POC ABG pO2 ABG pO2 ABG HCO3 ABG O2 Saturation ABG Base Excess ABG Oxyhemoglobin ABG Sodium ABG Potassium ABG Chloride ABG Glucose Sodium Potassium Chloride Carbon Dioxide BUN Creatinine Glucose POC Glucose 147 H 142 H 143 H Lactic Acid Calcium Phosphorus AST Total Creatine Kinase Troponin T HDL Cholesterol Arterial Blood Glucose Arterial Blood Ionized Calcium Urine WBC (Auto) Urine Creatinine 09/22/20 09/22/20 09/22/20 00:49 02:01 02:14 WBC RBC Hgb Hct MCV RDW Plt Count Lymph % (Auto) Winn % (Auto) Lymph # (Auto) Winn # (Auto) Seg Neutrophils % Seg Neuts % (Manual) Lymphocytes % (Manual) Seg Neutrophils # PT INR ABG pH POC ABG pCO2 POC ABG pO2 ABG pO2 ABG HCO3 ABG O2 Saturation ABG Base Excess ABG Oxyhemoglobin ABG Sodium ABG Potassium ABG Chloride ABG Glucose Sodium Potassium Chloride Carbon Dioxide BUN Creatinine Glucose POC Glucose 154 H 154 H 149 H Lactic Acid Calcium Phosphorus AST Total Creatine Kinase Troponin T HDL Cholesterol Arterial Blood Glucose Arterial Blood Ionized Calcium Urine WBC (Auto) Urine Creatinine 09/22/20 09/22/20 09/22/20 02:57 03:21 03:58 WBC RBC Hgb Hct MCV RDW Plt Count Lymph % (Auto) Winn % (Auto) Lymph # (Auto) Winn # (Auto) Seg Neutrophils % Seg Neuts % (Manual) Lymphocytes % (Manual) Seg Neutrophils # PT INR ABG pH 7.496 H POC ABG pCO2 25.0 L POC ABG pO2 73.8 L ABG pO2 ABG HCO3 ABG O2 Saturation ABG Base Excess ABG Oxyhemoglobin ABG Sodium ABG Potassium ABG Chloride 115.0 H ABG Glucose 154 H Sodium Potassium Chloride Carbon Dioxide BUN Creatinine Glucose POC Glucose 166 H 158 H Lactic Acid Calcium Phosphorus AST Total Creatine Kinase Troponin T HDL Cholesterol Arterial Blood Glucose 154 H Arterial Blood Ionized Calcium 4.5 L Urine WBC (Auto) Urine Creatinine 09/22/20 09/22/20 09/22/20 05:06 05:56 06:50 WBC RBC Hgb Hct MCV RDW Plt Count Lymph % (Auto) Winn % (Auto) Lymph # (Auto) Winn # (Auto) Seg Neutrophils % Seg Neuts % (Manual) Lymphocytes % (Manual) Seg Neutrophils # PT INR ABG pH POC ABG pCO2 POC ABG pO2 ABG pO2 ABG HCO3 ABG O2 Saturation ABG Base Excess ABG Oxyhemoglobin ABG Sodium ABG Potassium ABG Chloride ABG Glucose Sodium Potassium Chloride Carbon Dioxide BUN Creatinine Glucose POC Glucose 147 H 145 H 137 H Lactic Acid Calcium Phosphorus AST Total Creatine Kinase Troponin T HDL Cholesterol Arterial Blood Glucose Arterial Blood Ionized Calcium Urine WBC (Auto) Urine Creatinine 09/22/20 09/22/20 09/22/20 08:02 08:26 08:26 WBC 15.2 H RBC Hgb Hct MCV RDW 16.0 H Plt Count Lymph % (Auto) 7.6 L Winn % (Auto) Lymph # (Auto) Winn # (Auto) 1.0 H Seg Neutrophils % 86.0 H Seg Neuts % (Manual) Lymphocytes % (Manual) Seg Neutrophils # 13.0 H PT 15.5 H INR 1.25 H ABG pH POC ABG pCO2 POC ABG pO2 ABG pO2 ABG HCO3 ABG O2 Saturation ABG Base Excess ABG Oxyhemoglobin ABG Sodium ABG Potassium ABG Chloride ABG Glucose Sodium Potassium Chloride Carbon Dioxide BUN Creatinine Glucose POC Glucose 149 H Lactic Acid Calcium Phosphorus AST Total Creatine Kinase Troponin T HDL Cholesterol Arterial Blood Glucose Arterial Blood Ionized Calcium Urine WBC (Auto) Urine Creatinine 09/22/20 09/22/20 09/22/20 08:26 12:04 15:55 WBC RBC Hgb Hct MCV RDW Plt Count Lymph % (Auto) Winn % (Auto) Lymph # (Auto) Winn # (Auto) Seg Neutrophils % Seg Neuts % (Manual) Lymphocytes % (Manual) Seg Neutrophils # PT INR ABG pH POC ABG pCO2 POC ABG pO2 ABG pO2 ABG HCO3 ABG O2 Saturation ABG Base Excess ABG Oxyhemoglobin ABG Sodium ABG Potassium ABG Chloride ABG Glucose Sodium 146 H Potassium 3.5 L Chloride 114.0 H Carbon Dioxide 18 L BUN 46 H Creatinine 3.7 H Glucose 134 H POC Glucose 138 H 123 H Lactic Acid Calcium 7.7 L Phosphorus AST Total Creatine Kinase Troponin T HDL Cholesterol Arterial Blood Glucose Arterial Blood Ionized Calcium Urine WBC (Auto) Urine Creatinine 09/22/20 09/22/20 09/23/20 21:57 23:41 03:30 WBC 14.2 H RBC Hgb Hct MCV RDW 16.5 H Plt Count 126 L Lymph % (Auto) 8.2 L Winn % (Auto) 7.8 H Lymph # (Auto) Winn # (Auto) 1.1 H Seg Neutrophils % 83.8 H Seg Neuts % (Manual) Lymphocytes % (Manual) Seg Neutrophils # 11.9 H PT INR ABG pH POC ABG pCO2 POC ABG pO2 ABG pO2 ABG HCO3 ABG O2 Saturation ABG Base Excess ABG Oxyhemoglobin ABG Sodium ABG Potassium ABG Chloride ABG Glucose Sodium Potassium Chloride Carbon Dioxide BUN Creatinine Glucose POC Glucose 124 H 130 H Lactic Acid Calcium Phosphorus AST Total Creatine Kinase Troponin T HDL Cholesterol Arterial Blood Glucose Arterial Blood Ionized Calcium Urine WBC (Auto) Urine Creatinine 09/23/20 09/23/20 09/23/20 03:30 03:45 12:33 WBC RBC Hgb Hct MCV RDW Plt Count Lymph % (Auto) Winn % (Auto) Lymph # (Auto) Winn # (Auto) Seg Neutrophils % Seg Neuts % (Manual) Lymphocytes % (Manual) Seg Neutrophils # PT INR ABG pH POC ABG pCO2 POC ABG pO2 ABG pO2 ABG HCO3 ABG O2 Saturation ABG Base Excess ABG Oxyhemoglobin ABG Sodium ABG Potassium ABG Chloride ABG Glucose Sodium Potassium Chloride 110.4 H Carbon Dioxide 19 L BUN 56 H Creatinine 4.7 H Glucose 148 H POC Glucose 132 H 139 H Lactic Acid Calcium 7.4 L Phosphorus 5.80 H D AST Total Creatine Kinase Troponin T HDL Cholesterol Arterial Blood Glucose Arterial Blood Ionized Calcium Urine WBC (Auto) Urine Creatinine 09/23/20 09/23/20 09/24/20 17:54 23:18 02:57 WBC RBC Hgb Hct MCV RDW Plt Count Lymph % (Auto) Winn % (Auto) Lymph # (Auto) Winn # (Auto) Seg Neutrophils % Seg Neuts % (Manual) Lymphocytes % (Manual) Seg Neutrophils # PT INR ABG pH POC ABG pCO2 30.0 L POC ABG pO2 75.1 L ABG pO2 ABG HCO3 ABG O2 Saturation ABG Base Excess ABG Oxyhemoglobin ABG Sodium 149.5 H ABG Potassium ABG Chloride 119.0 H ABG Glucose 144 H Sodium Potassium Chloride Carbon Dioxide BUN Creatinine Glucose POC Glucose 115 H 139 H Lactic Acid Calcium Phosphorus AST Total Creatine Kinase Troponin T HDL Cholesterol Arterial Blood Glucose 144 H Arterial Blood Ionized Calcium Urine WBC (Auto) Urine Creatinine 09/24/20 09/24/20 09/24/20 04:20 04:30 05:10 WBC 14.3 H RBC Hgb Hct MCV RDW 16.6 H Plt Count 135 L Lymph % (Auto) 5.9 L Winn % (Auto) Lymph # (Auto) 0.8 L Winn # (Auto) 0.9 H Seg Neutrophils % 87.5 H Seg Neuts % (Manual) Lymphocytes % (Manual) Seg Neutrophils # 12.5 H PT INR ABG pH POC ABG pCO2 POC ABG pO2 ABG pO2 ABG HCO3 ABG O2 Saturation ABG Base Excess ABG Oxyhemoglobin ABG Sodium ABG Potassium ABG Chloride ABG Glucose Sodium 147 H Potassium Chloride 114.4 H Carbon Dioxide 19 L BUN 50 H Creatinine 3.2 H Glucose 142 H POC Glucose 137 H Lactic Acid Calcium 8.3 L Phosphorus AST Total Creatine Kinase Troponin T HDL Cholesterol Arterial Blood Glucose Arterial Blood Ionized Calcium Urine WBC (Auto) Urine Creatinine
--- NOTE | 2020-09-24 11:05 | Progress Note ---
Assessment and Plan Assessment and plan: This is a 50-year-old male with hypertension and heart failure admitted s/p cardiac arrest with JAMEY, UTI, lactic acidosis, hypotension. S/p cardiac arrest Acute hypoxic respiratory failure Acute kidney injury Urinary tract infection Leukocytosis Coagulopathic Hyperchloremia Metabolic acidosis Lactic acidosis Hypertension -[facility], cardiology, nephrology consulted, appreciate recommendations -s/p vasopressor support with Levophed, phenyl epinephrine, epinephrine -COVID 19 pcr (-) -Fentayl gtt -TF -09/20 CXR shows cardiomegaly -09/21 echocardiogram shows severely dilated left ventricle, the ventricle systo lic function severely decreased, borderline concentric left ventricle hypertrophy, severe global hypokinesis of the left ventricle, LVEF 10 to 15%, mild MR, trace TR, RVSP is normal at 12 mmHg, trace pericardial effusion. -Accu-Cheks every 6 hours, SSI -Renal ultrasound pending -09/21 FENa calculated at 3.14 indicating ATN -09/21 CT head shows motion degradation of the image quality despite repeat jeff ging. However, there appears to be mild cerebral white matter disease as described without CT evidence of acute intracranial hemorrhage. -09/23 CT head shows loss of reyna-white differentiation diffusely likely due to diffuse cerebral edema, interval decrease in ventricular size size diffusely likely due to compression however no herniation identified, suspect developing infarct in the right occipital region without hemorrhage. Evaluation limited by artifact -09/23 MRI brain without contrast pending -09/23 MRA/MRV head without contrast pending -09/23 Bilateral carotid ultrasound pending -Hemoglobin A1c, hepatic panel pending -Trend CBC, BMP GI/DVT prophylaxis: PPI, heparin subcu, SCDs to bilateral lower extremities while in bed Disposition: ICU The high probability of a clinically significant, sudden or life threatening deterioration of the [multi] system(s) required my full and direct attention, intervention and personal management. The aggregate critical care time was [35] minutes. This time is in addition to time spent performing reported procedures but includes the following: [x] Data Review and interpretation [x] Patient assessment and monitoring of vital signs [x] Documentation [x] Medication orders and management History Interval history: This is a 50-year-old male with heart failure and hypertension who presents to the emergency department on 09/21 with cardiac arrest after syncopal episode about 45 minutes prior to arrival to the emergency department. Upon arrival to the emergency department patient was found to be hypotensive and subsequently started on pressors with significant improvement in his blood pressure. Work-up in the emergency department reveals lactic acidosis, initial troponin within normal limits however subsequent troponins were elevated, no obvious ischemic changes on EKG, UDS positive for marijuana, urinalysis significant for urinary tract infection, BUN/creatinine slightly elevated 26/21. CXR showed severe cardiomegaly with mild interstitial pulmonary edema. Patient was admitted to the hospital service with consults to [facility], cardiology and nephrology s/p cardiac arrest, UTI, JAMEY, lactic acidosis and hypotension. 09/22: Patient was started on a fentanyl drip and propofol drip was increased. At the time of my examination patient is on CMV tidal and 450, rate 20, PEEP 6 and FiO2 25%. Patient had a T-max of 101.9 overnight. Today we removed Park catheter and femoral CVL. Plan to obtain PICC/PIV. Started TF today. 09/23: CT head obtained yesterday shows diffuse cerebral edema and a new suspected developing infarct in the right occipital region. Patient has worsening renal function today and hyperphosphatemia. The time of my examination patient was on CMV tidal 450, rate 20, PEEP 625% FiO2 and sedated on fentanyl at 2 mcg. [facility] to update family on the findings. CVA work-up ordered. Renal function worsened today. 09/24: Patient has hyponatremia, hypochloremia, metabolic acidosis, slightly improved renal function. [facility] discussion with family today regarding prognosis. Remains sedated on fentanyl CMV TV 450, R 20, PEEP 6, FiO2 25%. Park was replaced for retention. Hospitalist Physical - Constitutional Vitals: Temp Pulse Resp BP Pulse Ox 99.2 F 95 H 23 158/93 93 09/24/20 08:00 09/24/20 09:30 09/24/20 09:30 09/24/20 09:30 09/24/20 09:30 General appearance: Present: other (Unresponsive, on the vent) - EENT Eyes: Absent: PERRL ENT: clear oral mucosa - Neck Neck: Absent: masses or JVD, cervical LAD - Respiratory Respiratory effort: normal Respiratory: bilateral: CTA - Cardiovascular Rhythm: regular Heart Sounds: Present: S1 & S2. Absent: systolic murmur, diastolic murmur - Extremities Extremities: no ischemia, pulses intact, pulses symmetrical, No edema, normal color Peripheral Pulses: within normal limits - Abdominal General gastrointestinal: soft, non-tender, non-distended, normal bowel sounds - Integumentary Integumentary: Present: warm, dry - Neurologic Neurologic: other (no response to painful stimuli, no cough/gag reflex) - Allied Health Allied health notes reviewed: nursing, RT HEART Score - HEART Score Troponin: Troponin T 1.880 ng/mL (0.00-0.029) H* D 09/21/20 04:34 Results - Labs CBC & Chem 7: 09/24/20 04:20 09/24/20 04:30 Labs: Laboratory Last Values WBC 14.3 K/mm3 (4.5-11.0) H 09/24/20 04:20 RBC 4.63 M/mm3 (3.65-5.03) 09/24/20 04:20 Hgb 14.0 gm/dl (11.8-15.2) 09/24/20 04:20 Hct 43.6 % (35.5-45.6) 09/24/20 04:20 MCV 94 fl (84-94) 09/24/20 04:20 MCH 30 pg (28-32) 09/24/20 04:20 MCHC 32 % (32-34) 09/24/20 04:20 RDW 16.6 % (13.2-15.2) H 09/24/20 04:20 Plt Count 135 K/mm3 (140-440) L 09/24/20 04:20 Lymph % (Auto) 5.9 % (13.4-35.0) L 09/24/20 04:20 Toombs % (Auto) 6.5 % (0.0-7.3) 09/24/20 04:20 Eos % (Auto) 0.0 % (0.0-4.3) 09/24/20 04:20 Baso % (Auto) 0.1 % (0.0-1.8) 09/24/20 04:20 Lymph # (Auto) 0.8 K/mm3 (1.2-5.4) L 09/24/20 04:20 [place]bs # (Auto) 0.9 K/mm3 (0.0-0.8) H 09/24/20 04:20 Eos # (Auto) 0.0 K/mm3 (0.0-0.4) 09/24/20 04:20 Baso # (Auto) 0.0 K/mm3 (0.0-0.1) 09/24/20 04:20 Add Manual Diff Complete 09/20/20 23:02 Total Counted 100 09/20/20 23:02 Seg Neutrophils % 87.5 % (40.0-70.0) H 09/24/20 04:20 Seg Neuts % (Manual) 34.0 % (40.0-70.0) L 09/20/20 23:02 Lymphocytes % (Manual) 57.0 % (13.4-35.0) H 09/20/20 23:02 Monocytes % (Manual) 6.0 % (0.0-7.3) 09/20/20 23:02 Eosinophils % (Manual) 2.0 % (0.0-4.3) 09/20/20 23:02 Basophils % (Manual) 1.0 % (0.0-1.8) 09/20/20 23:02 Nucleated RBC % Not Reportable 09/20/20 23:02 Seg Neutrophils # 12.5 K/mm3 (1.8-7.7) H 09/24/20 04:20 Seg Neutrophils # Man 1.9 K/mm3 (1.8-7.7) 09/20/20 23:02 Band Neutrophils # 0.0 K/mm3 09/20/20 23:02 Lymphocytes # (Manual) 3.2 K/mm3 (1.2-5.4) 09/20/20 23:02 Abs React Lymphs (Man) 0.0 K/mm3 09/20/20 23:02 Monocytes # (Manual) 0.3 K/mm3 (0.0-0.8) 09/20/20 23:02 Eosinophils # (Manual) 0.1 K/mm3 (0.0-0.4) 09/20/20 23:02 Basophils # (Manual) 0.1 K/mm3 (0.0-0.1) 09/20/20 23:02 Metamyelocytes # 0.0 K/mm3 09/20/20 23:02 Myelocytes # 0.0 K/mm3 09/20/20 23:02 Promyelocytes # 0.0 K/mm3 09/20/20 23:02 Blast Cells # 0.0 K/mm3 09/20/20 23:02 WBC Morphology Not Reportable 09/20/20 23:02 Hypersegmented Neuts Not Reportable 09/20/20 23:02 Hyposegmented Neuts Not Reportable 09/20/20 23:02 Hypogranular Neuts Not Reportable 09/20/20 23:02 Smudge Cells Not Reportable 09/20/20 23:02 Toxic Granulation Not Reportable 09/20/20 23:02 Toxic Vacuolation Not Reportable 09/20/20 23:02 Dohle Bodies Not Reportable 09/20/20 23:02 Pelger-Huet Anomaly Not Reportable 09/20/20 23:02 Santosh Rods Not Reportable 09/20/20 23:02 Platelet Estimate Not Reportable 09/20/20 23:02 Clumped Platelets Not Reportable 09/20/20 23:02 Plt Clumps, EDTA Not Reportable 09/20/20 23:02 Large Platelets Not Reportable 09/20/20 23:02 Giant Platelets Not Reportable 09/20/20 23:02 Platelet Satelliting Not Reportable 09/20/20 23:02 Plt Morphology Comment Not Reportable 09/20/20 23:02 RBC Morphology Normal 09/20/20 23:02 Dimorphic RBCs Not Reportable 09/20/20 23:02 Polychromasia Not Reportable 09/20/20 23:02 Hypochromasia Not Reportable 09/20/20 23:02 Poikilocytosis Not Reportable 09/20/20 23:02 Anisocytosis Not Reportable 09/20/20 23:02 Microcytosis Not Reportable 09/20/20 23:02 Macrocytosis Not Reportable 09/20/20 23:02 Spherocytes Not Reportable 09/20/20 23:02 Pappenheimer Bodies Not Reportable 09/20/20 23:02 Sickle Cells Not Reportable 09/20/20 23:02 Target Cells Not Reportable 09/20/20 23:02 Tear Drop Cells Not Reportable 09/20/20 23:02 Ovalocytes Not Reportable 09/20/20 23:02 Helmet Cells Not Reportable 09/20/20 23:02 [place] Bodies Not Reportable 09/20/20 23:02 [place] Rings Not Reportable 09/20/20 23:02 [place] Cells Not Reportable 09/20/20 23:02 Bite Cells Not Reportable 09/20/20 23:02 Crenated Cell Not Reportable 09/20/20 23:02 Elliptocytes Not Reportable 09/20/20 23:02 Acanthocytes (Spur) Not Reportable 09/20/20 23:02 Rouleaux Not Reportable 09/20/20 23:02 Hemoglobin C Crystals Not Reportable 09/20/20 23:02 Schistocytes Not Reportable 09/20/20 23:02 Malaria parasites Not Reportable 09/20/20 23:02 Eduardo Bodies Not Reportable 09/20/20 23:02 Hem Pathologist Commnt No 09/20/20 23:02 PT 15.5 Sec. (12.2-14.9) H 09/22/20 08:26 INR 1.25 (0.87-1.13) H 09/22/20 08:26 APTT 30.6 Sec. (24.2-36.6) 09/21/20 10:08 ABG pH 7.409 (7.320-7.450) 09/24/20 02:57 POC ABG pCO2 30.0 mmHg (32.0-48.0) L 09/24/20 02:57 ABG pCO2 40.5 mm Hg 09/21/20 02:15 POC ABG pO2 75.1 mmHg (83-108) L 09/24/20 02:57 ABG pO2 244.1 mm Hg (80.0-90.0) H 09/21/20 02:15 POC ABG HCO3 18.5 09/24/20 02:57 ABG HCO3 17.7 mmol/L (20.0-26.0) L 09/21/20 02:15 ABG O2 Saturation 95.9 (0-100) 09/24/20 02:57 ABG O2 Content 24.2 (0.0-44) 09/21/20 02:15 POC ABG Base Excess -4.8 09/24/20 02:57 ABG Base Excess -8.8 mmol/L (-2.0-3.0) L 09/21/20 02:15 ABG Hemoglobin 14.5 (12.0-17.5) 09/24/20 02:57 ABG Oxyhemoglobin 94.8 (94-98) 09/24/20 02:57 ABG Carboxyhemoglobin 1.3 % (0.0-5.0) 09/21/20 02:15 ABG Methemoglobin 0.1 (0.0-1.5) 09/24/20 02:57 ABG Sodium 149.5 mmol/L (136.0-145.0) H 09/24/20 02:57 ABG Potassium 3.9 mmol/L (3.40-4.50) 09/24/20 02:57 ABG Chloride 119.0 mmol/L (98-107) H 09/24/20 02:57 ABG Glucose 144 mg/dL (65-95) H 09/24/20 02:57 Oxyhemoglobin 97.4 % (95.0-99.0) 09/21/20 02:15 Carboxyhemoglobin 1.0 (0.5-1.5) 09/24/20 02:57 FiO2 21 % 09/21/20 02:15 FiO2 % 25.0 09/24/20 02:57 Sodium 147 mmol/L (137-145) H 09/24/20 04:30 Potassium 4.0 mmol/L (3.6-5.0) 09/24/20 04:30 Chloride 114.4 mmol/L (98-107) H 09/24/20 04:30 Carbon Dioxide 19 mmol/L (22-30) L 09/24/20 04:30 Anion Gap 18 mmol/L 09/24/20 04:30 BUN 50 mg/dL (9-20) H 09/24/20 04:30 Creatinine 3.2 mg/dL (0.8-1.3) H 09/24/20 04:30 Estimated GFR 25 ml/min 09/24/20 04:30 BUN/Creatinine Ratio 16 % 09/24/20 04:30 Glucose 142 mg/dL (75-100) H 09/24/20 04:30 POC Glucose 137 mg/dL (70-105) H 09/24/20 05:10 Lactic Acid 1.00 mmol/L (0.7-2.0) 09/24/20 04:00 Calcium 8.3 mg/dL (8.4-10.2) L 09/24/20 04:30 Phosphorus 3.60 mg/dL (2.5-4.5) D 09/24/20 04:30 Total Bilirubin 0.30 mg/dL (0.1-1.2) 09/20/20 23:02 AST 59 units/L (5-40) H 09/20/20 23:02 ALT 30 units/L (7-56) 09/20/20 23:02 Alkaline Phosphatase 88 units/L (35-129) 09/20/20 23:02 Total Creatine Kinase 3606 units/L (55-170) H 09/21/20 15:54 Troponin T 1.880 ng/mL (0.00-0.029) H* D 09/21/20 04:34 Total Protein 7.0 g/dL (6.3-8.2) 09/20/20 23:02 Albumin 4.1 g/dL (3.9-5) 09/20/20 23:02 Albumin/Globulin Ratio 1.4 % 09/20/20 23:02 Triglycerides 43 mg/dL (2-149) 09/21/20 02:01 Cholesterol 152 mg/dL (50-199) 09/21/20 02:01 LDL Cholesterol Direct 92 mg/dL (50-130) 09/21/20 02:01 HDL Cholesterol 60 mg/dL (40-59) H 09/21/20 02:01 Cholesterol/HDL Ratio 2.53 % 09/21/20 02:01 Arterial Blood Glucose 144 mg/dL (65-95) H 09/24/20 02:57 Arterial Blood Ionized Calcium 4.7 mg/dL (4.6-5.3) 09/24/20 02:57 Urine Color Yellow (Yellow) 09/21/20 14:27 Urine Turbidity Slightly-cloudy (Clear) 09/21/20 14:27 Urine pH 5.0 (5.0-7.0) 09/21/20 14:27 Ur Specific [place] 1.011 (1.003-1.030) 09/21/20 14:27 Urine Protein 100 mg/dl mg/dL (Negative) 09/21/20 14:27 Urine Glucose (UA) 50 mg/dL (Negative) 09/21/20 14:27 Urine Ketones Neg mg/dL (Negative) 09/21/20 14:27 Urine Blood Lg (Negative) 09/21/20 14:27 Urine Nitrite Neg (Negative) 09/21/20 14:27 Urine Bilirubin Neg (Negative) 09/21/20 14:27 Urine Urobilinogen < 2.0 mg/dL (<2.0) 09/21/20 14:27 Ur Leukocyte Esterase Neg (Negative) 09/21/20 14:27 Urine WBC (Auto) 12.0 /HPF (0.0-6.0) H 09/21/20 14:27 Urine RBC (Auto) 48.0 /HPF (0.0-6.0) 09/21/20 14:27 U Epithel Cells (Auto) < 1.0 /HPF (0-13.0) 09/21/20 14:27 Urine Bacteria (Auto) 2+ /HPF (Negative) 09/21/20 14:27 Urine Mucus Few /HPF 09/21/20 14:27 Urine Yeast (Budding) 2+ /HPF 09/20/20 23:35 Urine Sperm 1+ /HPF (SE[employer]) 09/20/20 23:35 Urine Creatinine 60.4 mg/dL (0.1-20.0) H 09/21/20 14:27 Urine Sodium 108 mmol/L 09/21/20 14:27 Urine Urea Nitrogen 305 09/21/20 14:27 Urine Opiates Screen Presumptive negative 09/20/20 Unknown Urine Methadone Screen Presumptive negative 09/20/20 Unknown Ur Barbiturates Screen Presumptive negative 09/20/20 Unknown Ur Phencyclidine Scrn Presumptive negative 09/20/20 Unknown Ur Amphetamines Screen Presumptive negative 09/20/20 Unknown U Benzodiazepines Scrn Presumptive negative 09/20/20 Unknown Urine Cocaine Screen Presumptive negative 09/20/20 Unknown U Marijuana (THC) Screen Presumptive positive 09/20/20 Unknown Drugs of Abuse Note Disclamer 09/20/20 Unknown Coronavirus (PCR) Negative (Negative) 09/21/20 10:13 Microbiology: Microbiology 09/21/20 02:01 Peripheral/Venous Blood Culture - Preliminary NO GROWTH AFTER 72 HOURS 09/21/20 02:03 Peripheral/Venous Blood Culture - Preliminary NO GROWTH AFTER 72 HOURS 09/20/20 23:35 Tracheal Aspirate Sputum Culture - Final 09/20/20 23:35 Urine,Clean Catch Urine Culture - Final Park/IV: Voiding Method Indwelling Catheter Active Medications - Current Medications Current Medications: Generic Name Dose Route Start Last Admin Trade Name Freq PRN Reason Stop Dose Admin Acetaminophen 650 mg 09/21/20 15:51 09/23/20 23:45 Acetaminophen 325 Mg/10.15 Ml Oral Liqd Unit Dose FEEDTUBE 650 mg Q6H PRN Administration Pain, Mild (1-3) Lipase/Protease/Amylase 1 each 09/22/20 08:53 Lipase 10,500/Protease 25,000/Amylase 43,750 (Units) Dr Percy FEEDTUBE PRN PRN For Clogged Feeding Tube Aspirin 325 mg 09/21/20 16:00 09/24/20 09:10 Aspirin 325 Mg Tab PO 325 mg QDAY PATSY Administration Atorvastatin Calcium 40 mg 09/23/20 22:00 09/23/20 21:04 Atorvastatin 40 Mg Tab PO 40 mg QHS PATSY Administration Famotidine 20 mg 09/22/20 10:00 09/24/20 09:11 Famotidine 20 Mg/2 Ml Inj IV 20 mg QDAY PATSY Administration Heparin Sodium (Porcine) 5,000 unit 09/21/20 22:00 09/24/20 09:11 Heparin 5,000 Unit/1 Ml Vial SUB-Q 5,000 unit Q12HR PATSY Administration Hydralazine HCl 5 mg 09/23/20 14:00 09/24/20 09:10 Hydralazine 20 Mg/1 Ml Inj IV 5 mg Q4HR PATSY Administration Hydrophilic Ointment 1 applic 09/20/20 22:59 Lip Therapy Vaseline TP Q2HR PRN Dry Lips Ceftriaxone Sodium 1 gm in 50 mls @ 100 mls/hr 09/21/20 10:00 09/24/20 09:12 Rocephin/Ns 1 Gm/50 Ml IV 09/25/20 10:29 200 mls/hr Q24HR PATSY Administration Protocol Norepinephrine 4 mg in 250 mls @ 7.5 mls/hr 09/21/20 05:00 Levophed Drip 4 Mg/Ns 250 Ml IV TITR PATSY Protocol 2 MCG/MIN Fentanyl Citrate 2,000 mcg in 100 mls @ 5.105 mls/hr 09/22/20 11:30 09/23/20 23:44 Fentanyl Drip Premix IV 4 mcg/kg/hr TITR PATSY 20.42 mls/hr Administration Protocol 1 MCG/KG/HR Metoprolol Tartrate 5 mg 09/23/20 12:12 09/24/20 06:12 Metoprolol Tartrate 5 Mg/5 Ml Inj IV 5 mg Q6HR PATSY Administration Multi-Ingred Cream/Lotion/Oil/Oint 1 applic 09/20/20 22:59 Mineral Oil/Petrolatum, White Ophth Oint 3.5 Gm OU Q4HR PRN Dry Eye(s) Ondansetron HCl 4 mg 09/21/20 01:24 Ondansetron 4 Mg/2 Ml Inj IV Q8H PRN Nausea And Vomiting Simple Syrup 15 ml 09/22/20 08:53 Simple Syrup 15 Ml FEEDTUBE PRN PRN Hypoglycemia Simple Syrup 30 ml 09/22/20 08:53 Simple Syrup 15 Ml FEEDTUBE PRN PRN Hypoglycemia Sodium Bicarbonate 325 mg 09/22/20 08:53 Sodium Bicarbonate 325 Mg Tab FEEDTUBE PRN PRN For Clogged Feeding Tube Sodium Chloride 10 ml 09/21/20 10:00 09/24/20 09:31 Sodium Chloride 0.9% 10 Ml Flush Syringe IV 10 ml BID PATSY Administration Sodium Chloride 10 ml 09/21/20 01:24 Sodium Chloride 0.9% 10 Ml Flush Syringe IV PRN PRN LINE FLUSH Nutrition/Malnutrition Assess - Dietary Evaluation Nutrition/Malnutrition Findings: Nutrition Notes Start: 09/21/20 08:17 Freq: Status: Active Protocol: Document 09/22/20 08:32 CW (Rec: 09/22/20 08:52 CW [id number]) Nutrition Notes Initial or Follow up Reassessment Current Diagnosis Acute Kidney Injury, Hypertension,Heart Failure, Respiratory Failure Other Pertinent Diagnosis Cardiac Arrest, UTI, anoxic brain injury Current Diet TF Labs/Tests 09/21/2020 Na 146 K 3.5 BUN 37 Cr 2.8 Pertinent Medications propofol at 25.504 ml/hr (673 kcal) D5 1/2 NS at 75 ml/hr Dobutamine, Levophed, epinephrine, phenylephrine NS 2 L Height 6 ft Weight 102.1 kg [place] Body Weight (kg) 80.90 BMI 30.5 Weight Status Obese Subjective/Other Information MD consult for write/manage TF . Pt remains on mechanical vent. TF adjusted for ~700 kcal of propofol provided. Pt not meeting protein needs at this time d/t JAMEY Percent of energy/protein needs met: 0%/0% Burn Absent Trauma Absent GI Symptoms None Current % PO Negligible Minimum of two criteria No physical signs of malnutrition #1 Nutrition Diagnosis Inadequate oral intake Diagnosis Progress(for reassessment Continues documentation) Is patient on ventilator? Yes Is Patient Ambulatory and/or Out of Bed No REE-([place]-St Jeor-confined to bed) 2318.184 Kcal/Kg value to use for calculation 19 Approximate Energy Requirements Using 1940 kcal/Kg Calculation Used for Recommendations Kcal/kg Additional Notes Protein needs are >162g (>2g/ kgIBW) Fluid needs are 1ml/kcal Nutrition Intervention Change Diet Order: Initiate TF Nutrition Support: Vital AF 1.2 at 45 ml/hr with a free water flush of 275 ml q4h for hypernatremia. Once hypernatremia resolves, continue free water flush of 200 ml q4h. Kcal 1,296 Protein (gm) 81 Fluid (mL) 876 Goal #1 Meet at least 75% of kcal and protein needs as medically feasible Anticipated Discharge Needs: Unable to determine at this time Follow-Up By: 09/25/20 Additional Comments F/U for TF at goal, TF tolerance, vent status, propofol rate
[2020-09-24] MEDS: fentaNYL DRIP Premix 2,000 MCG/100 ML BAG IV SCH ×2 (11:26→20:17)
[2020-09-24] MEDS: ACETAMINOPHEN 325 MG/10.15 ML ORAL LIQD UNIT DOSE FEEDTUBE PRN ×3 (11:57→23:33)
--- NOTE | 2020-09-24 12:04 | Progress Note ---
Assessment and Plan (1) Cardiac arrest (2) Respiratory failure (3) Hypotension (4) Renal failure JAMEY secondary to ATN Cr trending down, making urine, no acute HD indication right now. Na 147, D5W 500 cc bolus once. Renal Us report pending Urine Cr low signalling some ATN will check urine lytes no indication for HD renally dose meds strict I&O Subjective Date of service: 09/24/20 Principal diagnosis: JAMEY Interval history: Intubated on Vent. Objective - Exam Narrative Exam: GE:Intubated HEENT:Normocephalic Neck:Supple Chest:Coarse BS BL CVS:RRR Abd:BS+ Ext:No cce Neuro:Sedated - Vital Signs Vital signs: Vital Signs - 12hr 09/24/20 09/24/20 09/24/20 00:25 00:30 01:00 Temperature Pulse Rate 87 89 103 H Pulse Rate [ From Monitor] Respiratory 22 21 Rate Blood Pressure 150/81 146/90 145/93 O2 Sat by Pulse 97 98 97 Oximetry 09/24/20 09/24/20 09/24/20 01:30 02:00 02:30 Temperature Pulse Rate 85 88 93 H Pulse Rate [ From Monitor] Respiratory 22 20 20 Rate Blood Pressure 145/88 145/90 149/94 O2 Sat by Pulse 97 97 97 Oximetry 09/24/20 09/24/20 09/24/20 03:00 03:30 03:56 Temperature 101.4 F H Pulse Rate 103 H 111 H Pulse Rate [ From Monitor] Respiratory 20 24 Rate Blood Pressure 146/93 156/99 O2 Sat by Pulse 98 98 Oximetry 09/24/20 09/24/20 09/24/20 04:00 04:11 04:30 Temperature Pulse Rate 112 H 108 H 116 H Pulse Rate [ 109 H From Monitor] Respiratory 22 17 Rate Blood Pressure 136/92 136/92 133/100 O2 Sat by Pulse 96 97 97 Oximetry 09/24/20 09/24/20 09/24/20 05:00 05:30 06:00 Temperature Pulse Rate 109 H 118 H 94 H Pulse Rate [ From Monitor] Respiratory 20 25 H 20 Rate Blood Pressure 140/98 157/95 157/95 O2 Sat by Pulse 97 96 96 Oximetry 09/24/20 09/24/20 09/24/20 06:12 06:30 07:00 Temperature Pulse Rate 109 H 78 91 H Pulse Rate [ From Monitor] Respiratory 17 16 Rate Blood Pressure 158/94 137/83 139/87 O2 Sat by Pulse 94 94 Oximetry 09/24/20 09/24/20 09/24/20 07:03 07:30 08:00 Temperature 99.2 F Pulse Rate 87 95 H 101 H Pulse Rate [ 97 H From Monitor] Respiratory 22 19 Rate Blood Pressure 147/91 145/91 O2 Sat by Pulse 94 95 Oximetry 09/24/20 09/24/20 09/24/20 08:30 08:39 09:00 Temperature Pulse Rate 85 111 H 108 H Pulse Rate [ From Monitor] Respiratory 15 18 Rate Blood Pressure 151/88 151/88 145/96 O2 Sat by Pulse 95 94 94 Oximetry 09/24/20 09/24/20 09/24/20 09:10 09:30 10:00 Temperature Pulse Rate 90 95 H 108 H Pulse Rate [ From Monitor] Respiratory 23 20 Rate Blood Pressure 145/96 158/93 130/89 O2 Sat by Pulse 93 92 Oximetry 09/24/20 09/24/20 09/24/20 10:31 11:00 11:36 Temperature Pulse Rate 94 H 94 H 104 H Pulse Rate [ From Monitor] Respiratory 14 18 Rate Blood Pressure 137/86 135/82 139/86 O2 Sat by Pulse 94 94 96 Oximetry 09/24/20 11:45 Temperature Pulse Rate 107 H Pulse Rate [ From Monitor] Respiratory Rate Blood Pressure 139/86 O2 Sat by Pulse Oximetry - Lab 09/24/20 04:20 09/24/20 04:30 Most recent lab results ABG pH 7.409 (7.320-7.450) 09/24/20 02:57 ABG pCO2 40.5 mm Hg 09/21/20 02:15 ABG pO2 244.1 mm Hg (80.0-90.0) H 09/21/20 02:15 ABG HCO3 17.7 mmol/L (20.0-26.0) L 09/21/20 02:15 ABG O2 Saturation 95.9 (0-100) 09/24/20 02:57 Calcium 8.3 mg/dL (8.4-10.2) L 09/24/20 04:30 Phosphorus 3.60 mg/dL (2.5-4.5) D 09/24/20 04:30 Urine Creatinine 60.4 mg/dL (0.1-20.0) H 09/21/20 14:27 Urine Sodium 108 mmol/L 09/21/20 14:27 Medications & Allergies - Medications Allergies/Adverse Reactions: Allergies No Known Allergies Allergy (Unverified 09/20/20 23:08) Home Medications: Home Medications Medication Instructions Recorded Confirmed Last Taken Type Furosemide [Lasix] 40 mg PO QDAY 09/21/20 09/21/20 Unknown History Simvastatin 20 mg PO QDAY 09/21/20 09/21/20 Unknown History amLODIPine [Norvasc] 5 mg PO DAILY 09/21/20 09/21/20 Unknown History carvediloL [Coreg] 25 mg PO BID 09/21/20 09/21/20 Unknown History lisinopriL [Zestril TAB] 40 mg PO QDAY 09/21/20 09/21/20 Unknown History Active Medications: Generic Name Dose Route Start Last Admin Trade Name Freq PRN Reason Stop Dose Admin Acetaminophen 650 mg 09/21/20 15:51 09/24/20 11:57 Acetaminophen 325 Mg/10.15 Ml Oral Liqd Unit Dose FEEDTUBE 650 mg Q6H PRN Administration Pain, Mild (1-3) Lipase/Protease/Amylase 1 each 09/22/20 08:53 Lipase 10,500/Protease 25,000/Amylase 43,750 (Units) Dr Greer FEEDTUBE PRN PRN For Clogged Feeding Tube Aspirin 325 mg 09/21/20 16:00 09/24/20 09:10 Aspirin 325 Mg Tab PO 325 mg QDAY PATSY Administration Atorvastatin Calcium 40 mg 09/23/20 22:00 09/23/20 21:04 Atorvastatin 40 Mg Tab PO 40 mg QHS PTASY Administration Famotidine 20 mg 09/22/20 10:00 09/24/20 09:11 Famotidine 20 Mg/2 Ml Inj IV 20 mg QDAY PATSY Administration Heparin Sodium (Porcine) 5,000 unit 09/21/20 22:00 09/24/20 09:11 Heparin 5,000 Unit/1 Ml Vial SUB-Q 5,000 unit Q12HR PATSY Administration Hydralazine HCl 5 mg 09/23/20 14:00 09/24/20 09:10 Hydralazine 20 Mg/1 Ml Inj IV 5 mg Q4HR PATSY Administration Hydrophilic Ointment 1 applic 09/20/20 22:59 Lip Therapy Vaseline TP Q2HR PRN Dry Lips Ceftriaxone Sodium 1 gm in 50 mls @ 100 mls/hr 09/21/20 10:00 09/24/20 09:12 Rocephin/Ns 1 Gm/50 Ml IV 09/25/20 10:29 200 mls/hr Q24HR PATSY Administration Protocol Norepinephrine 4 mg in 250 mls @ 7.5 mls/hr 09/21/20 05:00 Levophed Drip 4 Mg/Ns 250 Ml IV TITR PATSY Protocol 2 MCG/MIN Fentanyl Citrate 2,000 mcg in 100 mls @ 5.105 mls/hr 09/22/20 11:30 09/24/20 11:26 Fentanyl Drip Premix IV 2 mcg/kg/hr TITR PATSY 10.21 mls/hr Administration Protocol 1 MCG/KG/HR Metoprolol Tartrate 5 mg 09/23/20 12:12 09/24/20 11:45 Metoprolol Tartrate 5 Mg/5 Ml Inj IV 5 mg Q6HR PATSY Administration Multi-Ingred Cream/Lotion/Oil/Oint 1 applic 09/20/20 22:59 Mineral Oil/Petrolatum, White Ophth Oint 3.5 Gm OU Q4HR PRN Dry Eye(s) Ondansetron HCl 4 mg 09/21/20 01:24 Ondansetron 4 Mg/2 Ml Inj IV Q8H PRN Nausea And Vomiting Simple Syrup 15 ml 09/22/20 08:53 Simple Syrup 15 Ml FEEDTUBE PRN PRN Hypoglycemia Simple Syrup 30 ml 09/22/20 08:53 Simple Syrup 15 Ml FEEDTUBE PRN PRN Hypoglycemia Sodium Bicarbonate 325 mg 09/22/20 08:53 Sodium Bicarbonate 325 Mg Tab FEEDTUBE PRN PRN For Clogged Feeding Tube Sodium Chloride 10 ml 09/21/20 10:00 09/24/20 09:31 Sodium Chloride 0.9% 10 Ml Flush Syringe IV 10 ml BID PATSY Administration Sodium Chloride 10 ml 09/21/20 01:24 Sodium Chloride 0.9% 10 Ml Flush Syringe IV PRN PRN LINE FLUSH
--- NOTE | 2020-09-24 14:10 | Progress Note ---
Assessment and Plan - Patient Problems (1) Cardiopulmonary arrest Current Visit: Yes Status: Acute Plan to address problem: Patient with longstanding cardiomyopathy previously managed in [place], presents with out of hospital primary cardiac arrest. Echocardiogram showed severe left ventricular systolic dysfunction, ejection fraction 10 to 15%. In the setting of a prolonged downtime in the field of 45 minutes, the medium and long-term prognosis is very poor. Subjective Date of service: 09/24/20 Principal diagnosis: JAMEY Interval history: Patient is unresponsive on the vent, on document controller he has a normal sinus rhythm at 90. Objective Vital Signs Temp Pulse Pulse Resp BP Pulse Ox 09/24/20 14:00 71 17 129/69 96 09/24/20 13:30 89 16 124/76 95 09/24/20 13:05 99 H 131/77 09/24/20 13:00 76 16 131/77 96 09/24/20 12:30 72 13 136/77 96 09/24/20 12:00 102 H 98 H 19 145/91 94 09/24/20 11:59 99 H 09/24/20 11:45 107 H 139/86 09/24/20 11:36 104 H 139/86 96 09/24/20 11:30 96 H 19 139/86 94 09/24/20 11:00 94 H 18 135/82 94 09/24/20 10:31 94 H 14 137/86 94 09/24/20 10:00 108 H 20 130/89 92 09/24/20 09:30 95 H 23 158/93 93 09/24/20 09:10 90 145/96 09/24/20 09:00 108 H 18 145/96 94 09/24/20 08:39 111 H 151/88 94 09/24/20 08:30 85 15 151/88 95 09/24/20 08:00 99.2 F 101 H 97 H 19 145/91 95 09/24/20 07:30 95 H 22 147/91 94 09/24/20 07:03 87 09/24/20 07:00 91 H 16 139/87 94 09/24/20 06:30 78 17 137/83 94 09/24/20 06:12 109 H 158/94 09/24/20 06:00 94 H 20 157/95 96 09/24/20 05:30 118 H 25 H 157/95 96 09/24/20 05:00 109 H 20 140/98 97 09/24/20 04:30 116 H 17 133/100 97 09/24/20 04:11 108 H 136/92 97 09/24/20 04:00 112 H 109 H 22 136/92 96 09/24/20 03:56 101.4 F H 09/24/20 03:30 111 H 24 156/99 98 09/24/20 03:00 103 H 20 146/93 98 09/24/20 02:30 93 H 20 149/94 97 09/24/20 02:00 88 20 145/90 97 09/24/20 01:30 85 22 145/88 97 09/24/20 01:00 103 H 21 145/93 97 09/24/20 00:30 89 22 146/90 98 09/24/20 00:25 87 150/81 97 09/24/20 00:00 99.3 F 104 H 109 H 11 L 150/81 96 09/23/20 23:50 100.6 F H 09/23/20 23:44 100 H 157/86 09/23/20 23:30 82 15 157/86 97 09/23/20 23:00 105 H 19 143/95 96 09/23/20 22:30 118 H 27 H 154/103 96 09/23/20 22:00 95 H 17 147/73 97 09/23/20 21:30 101 H 18 151/74 97 09/23/20 21:13 116 H 18 146/81 96 09/23/20 21:04 80 146/81 09/23/20 21:00 76 21 146/81 99 09/23/20 20:40 103 H 150/88 97 09/23/20 20:30 102.5 F H 97 H 13 150/88 97 09/23/20 20:00 105 H 109 H 15 153/96 93 09/23/20 19:40 99.2 F 09/23/20 19:34 118 H 147/95 09/23/20 19:30 109 H 20 147/95 97 09/23/20 19:00 113 H 19 161/98 97 09/23/20 18:30 120 H 17 158/102 97 09/23/20 18:00 111 H 25 H 146/89 98 09/23/20 17:30 110 H 18 143/82 97 05/08/21 17:09 91 H 155/96 09/23/20 17:00 106 H 23 155/96 98 09/23/20 16:30 99 H 14 154/89 98 09/23/20 16:00 110 H 114 H 12 144/102 97 09/23/20 15:54 100 H 132/90 98 09/23/20 15:30 92 H 16 132/90 98 09/23/20 15:08 97 H 09/23/20 15:00 109 H 11 L 131/100 98 09/23/20 14:30 106 H 17 141/90 98 - Physical Examination General: Other (intubated, unresponsive, on the vent) HEENT: Positive: Other (Pupils fixed) Neck: Positive: neck supple Cardiac: Positive: Reg Rate and Rhythm Lungs: Positive: Decreased Breath Sounds Neuro: Positive: Weakness (Unresponsive, on the vent) Abdomen: Positive: Soft Skin: Positive: Clear Extremities: Absent: edema - Labs and Meds CBC 09/24/20 Range/Units 04:20 WBC 14.3 H (4.5-11.0) K/mm3 RBC 4.63 (3.65-5.03) M/mm3 Hgb 14.0 (11.8-15.2) gm/dl Hct 43.6 (35.5-45.6) % Plt Count 135 L (140-440) K/mm3 Lymph # (Auto) 0.8 L (1.2-5.4) K/mm3 [place] # (Auto) 0.9 H (0.0-0.8) K/mm3 Eos # (Auto) 0.0 (0.0-0.4) K/mm3 Baso # (Auto) 0.0 (0.0-0.1) K/mm3 Comprehensive Metabolic Panel 09/24/20 Range/Units 04:30 Sodium 147 H (137-145) mmol/L Potassium 4.0 (3.6-5.0) mmol/L Chloride 114.4 H (98-107) mmol/L Carbon Dioxide 19 L (22-30) mmol/L BUN 50 H (9-20) mg/dL Creatinine 3.2 H (0.8-1.3) mg/dL Glucose 142 H (75-100) mg/dL Calcium 8.3 L (8.4-10.2) mg/dL
[2020-09-24] MEDS ORDERED: DEXTROSE 5% IN WATER 1,000 ML IV SCH (17:00)
[2020-09-25] MEDS: hydrALAZINE 20 MG/1 ML INJ IV SCH ×6 (01:41→21:55)
[2020-09-25] MEDS: ACETAMINOPHEN 325 MG/10.15 ML ORAL LIQD UNIT DOSE FEEDTUBE PRN ×3 (05:20→19:42)
[2020-09-25] MEDS: METOPROLOL TARTRATE 5 MG/5 ML INJ IV SCH ×4 (05:21→23:58)
[2020-09-25] MEDS: fentaNYL DRIP Premix 2,000 MCG/100 ML BAG IV SCH (05:51)
[2020-09-25 08:22] LABS: Basophils % (Auto) 0.1 % (0.0-1.8); Hematocrit 41.8 % (35.5-45.6); Hemoglobin 13.2 gm/dl (11.8-15.2); Lymphocytes # (Auto) 0.9 K/mm3 (1.2-5.4); Lymphocytes % (Auto) 6.7 % (13.4-35.0); Mean Corpuscular HGB Conc 32 % (32-34); Mean Corpuscular Volume 94 fl (84-94); Monocytes # (Auto) 1.3 K/mm3 (0.0-0.8); Monocytes % (Auto) 9.1 % (0.0-7.3); Platelet Count 171 K/mm3 (140-440); Red Blood Count 4.45 M/mm3 (3.65-5.03); Red Cell Distribution Width 16.5 % (13.2-15.2)
[2020-09-25 09:23] LABS: Calcium 8.3 mg/dL (8.4-10.2)
[2020-09-25] MEDS: cefTRIAXone/NS 1 GM/50 ML 1 GM/50 ML BAG IV SCH (09:45)
[2020-09-25] MEDS: HEPARIN 5,000 UNIT/1 ML VIAL SUB-Q SCH ×2 (09:46→21:56)
[2020-09-25] MEDS: ASPIRIN 325 MG TAB PO SCH (09:46)
[2020-09-25] MEDS: FAMOTIDINE 20 MG TAB PO SCH (09:46)
--- NOTE | 2020-09-25 10:24 | Progress Note ---
Assessment and Plan - Patient Problems (1) Cardiopulmonary arrest Current Visit: Yes Status: Acute Plan to address problem: Patient presented with out of hospital cardiopulmonary arrest, underlying severe dilated cardiomyopathy, currently on supportive management, prognosis is poor. Subjective Date of service: 09/25/20 Principal diagnosis: JAMEY Interval history: Patient is unresponsive, on the vent. On environmental monitoring technician, there is a normal sinus rhythm at 95. Blood pressure is stable, 122 systolic without pressors. Objective Vital Signs Temp Pulse Pulse Resp BP Pulse Ox 09/25/20 10:00 97 H 17 124/74 92 09/25/20 09:46 100 H 122/74 09/25/20 09:30 99 H 15 122/74 92 09/25/20 09:00 93 H 14 123/75 92 09/25/20 08:35 101 H 133/77 93 09/25/20 08:30 89 17 133/77 93 09/25/20 08:00 102.3 F H 104 H 18 127/83 93 09/25/20 07:30 99 H 20 119/76 92 09/25/20 07:00 97 H 20 117/75 94 09/25/20 06:30 97 H 16 118/76 93 09/25/20 06:00 85 19 121/74 95 09/25/20 05:30 77 17 119/71 93 09/25/20 05:21 114 H 135/78 09/25/20 05:20 87 135/78 09/25/20 05:00 82 19 135/78 95 09/25/20 04:30 82 20 132/78 95 09/25/20 04:17 96 H 135/84 96 09/25/20 04:00 102.9 F H 100 H 96 H 17 135/84 94 09/25/20 03:30 102 H 20 127/87 95 09/25/20 03:00 76 20 138/78 95 09/25/20 02:30 77 19 142/84 95 09/25/20 02:01 98 H 17 133/85 09/25/20 01:41 89 133/85 09/25/20 01:30 97 H 20 133/85 96 09/25/20 01:00 98 H 18 137/80 97 09/25/20 00:30 97 H 17 127/85 95 09/25/20 00:05 100 H 18 144/83 95 09/25/20 00:00 102 F H 98 H 95 H 20 144/83 96 09/24/20 23:49 102 H 18 136/82 94 09/24/20 23:34 91 H 136/82 09/24/20 23:30 88 10 L 136/82 99 09/24/20 23:22 84 118/74 95 09/24/20 23:00 87 13 118/74 95 09/24/20 22:30 90 11 L 128/76 95 09/24/20 22:00 85 18 118/72 95 09/24/20 21:30 92 H 11 L 138/78 96 09/24/20 21:25 81 129/78 09/24/20 21:00 89 15 129/78 95 09/24/20 20:30 102 H 20 129/79 95 09/24/20 20:05 83 113/77 96 09/24/20 20:00 94 H 100 H 15 113/77 97 09/24/20 19:46 101.5 F H 09/24/20 19:30 93 H 15 116/77 96 09/24/20 19:00 85 18 118/72 97 09/24/20 18:30 96 H 21 131/81 96 09/24/20 18:14 109 H 137/88 09/24/20 18:13 88 137/88 09/24/20 18:00 109 H 13 137/88 97 09/24/20 17:30 97 H 9 L 129/79 95 09/24/20 17:00 90 14 124/79 95 09/24/20 16:30 93 H 18 135/82 99 09/24/20 16:28 87 135/82 97 09/24/20 16:01 109 H 09/24/20 16:00 76 90 20 136/73 96 09/24/20 15:30 102 H 19 129/80 94 09/24/20 15:00 74 14 122/72 96 09/24/20 14:30 85 17 131/71 95 09/24/20 14:00 71 17 129/69 96 09/24/20 13:30 89 16 124/76 95 09/24/20 13:05 99 H 131/77 09/24/20 13:00 76 16 131/77 96 09/24/20 12:30 72 13 136/77 96 09/24/20 12:00 102 H 98 H 19 145/91 94 09/24/20 11:59 99 H 09/24/20 11:45 107 H 139/86 09/24/20 11:36 104 H 139/86 96 09/24/20 11:30 96 H 19 139/86 94 09/24/20 11:00 94 H 18 135/82 94 09/24/20 10:31 94 H 14 137/86 94 - Physical Examination General: Other (intubated, unresponsive, on the vent) HEENT: Positive: Other (Pupils fixed) Neck: Positive: neck supple Cardiac: Positive: Reg Rate and Rhythm Lungs: Positive: Decreased Breath Sounds Neuro: Positive: Weakness (Unresponsive, on the vent) Abdomen: Positive: Soft Skin: Positive: Clear Extremities: Absent: edema - Labs and Meds CBC 09/25/20 Range/Units 07:50 WBC 14.0 H (4.5-11.0) K/mm3 RBC 4.45 (3.65-5.03) M/mm3 Hgb 13.2 (11.8-15.2) gm/dl Hct 41.8 (35.5-45.6) % Plt Count 171 (140-440) K/mm3 Lymph # (Auto) 0.9 L (1.2-5.4) K/mm3 [place] # (Auto) 1.3 H (0.0-0.8) K/mm3 Eos # (Auto) 0.0 (0.0-0.4) K/mm3 Baso # (Auto) 0.0 (0.0-0.1) K/mm3 Comprehensive Metabolic Panel 09/25/20 Range/Units 07:50 Sodium 160 H D (137-145) mmol/L Potassium 3.7 (3.6-5.0) mmol/L Chloride 124.2 H (98-107) mmol/L Carbon Dioxide 26 D (22-30) mmol/L BUN 54 H (9-20) mg/dL Creatinine 2.8 H (0.8-1.3) mg/dL Glucose 124 H (75-100) mg/dL Calcium 8.3 L (8.4-10.2) mg/dL
--- NOTE | 2020-09-25 11:33 | Progress Note ---
Assessment and Plan Assessment Cardiac arrest Respiratory failure Hypotension Acute Renal failure Plan Renal labs reviewed. Serum creatinine 2.8 today, yesterdays was 3.2, has good UOP JAMEY secondary to ATN. Urine creatinine low signalling some ATN Creatinine trending down, has good UOP, no acute HD indication right now. Sodium level noted to be 160 today- Spoke to pharmacist, no D5W at this time due to Cerebral Edema. Start free water intake 300 ml every 4 hours Check sodium level every 4 hours Renal US-report remains pending No indication for HD Renally dose medications Strict I&O's daily Monitor closely Plan of care reviewed with Dr. eTe Subjective Date of service: 09/25/20 Principal diagnosis: JAMEY Interval history: Patient seen lying in bed. He is intubated and unresponsive. Objective - Vital Signs Vital signs: Vital Signs - 12hr 09/24/20 09/24/20 09/24/20 23:30 23:34 23:49 Temperature Pulse Rate 88 91 H 102 H Pulse Rate [ From Monitor] Respiratory 10 L 18 Rate Blood Pressure 136/82 136/82 136/82 O2 Sat by Pulse 99 94 Oximetry 09/25/20 09/25/20 09/25/20 00:00 00:05 00:30 Temperature 102 F H Pulse Rate 98 H 100 H 97 H Pulse Rate [ 95 H From Monitor] Respiratory 20 18 17 Rate Blood Pressure 144/83 144/83 127/85 O2 Sat by Pulse 96 95 95 Oximetry 09/25/20 09/25/20 09/25/20 01:00 01:30 01:41 Temperature Pulse Rate 98 H 97 H 89 Pulse Rate [ From Monitor] Respiratory 18 20 Rate Blood Pressure 137/80 133/85 133/85 O2 Sat by Pulse 97 96 Oximetry 09/25/20 09/25/20 09/25/20 02:01 02:30 03:00 Temperature Pulse Rate 98 H 77 76 Pulse Rate [ From Monitor] Respiratory 17 19 20 Rate Blood Pressure 133/85 142/84 138/78 O2 Sat by Pulse 95 95 Oximetry 09/25/20 09/25/20 09/25/20 03:30 04:00 04:17 Temperature 102.9 F H Pulse Rate 102 H 100 H 96 H Pulse Rate [ 96 H From Monitor] Respiratory 20 17 Rate Blood Pressure 127/87 135/84 135/84 O2 Sat by Pulse 95 94 96 Oximetry 09/25/20 09/25/20 09/25/20 04:30 05:00 05:20 Temperature Pulse Rate 82 82 87 Pulse Rate [ From Monitor] Respiratory 20 19 Rate Blood Pressure 132/78 135/78 135/78 O2 Sat by Pulse 95 95 Oximetry 09/25/20 09/25/20 09/25/20 05:21 05:30 06:00 Temperature Pulse Rate 114 H 77 85 Pulse Rate [ From Monitor] Respiratory 17 19 Rate Blood Pressure 135/78 119/71 121/74 O2 Sat by Pulse 93 95 Oximetry 09/25/20 09/25/20 09/25/20 06:30 07:00 07:30 Temperature Pulse Rate 97 H 97 H 99 H Pulse Rate [ From Monitor] Respiratory 16 20 20 Rate Blood Pressure 118/76 117/75 119/76 O2 Sat by Pulse 93 94 92 Oximetry 09/25/20 09/25/20 09/25/20 08:00 08:30 08:35 Temperature 102.3 F H Pulse Rate 104 H 89 101 H Pulse Rate [ From Monitor] Respiratory 18 17 Rate Blood Pressure 127/83 133/77 133/77 O2 Sat by Pulse 93 93 93 Oximetry 09/25/20 09/25/20 09/25/20 09:00 09:30 09:46 Temperature Pulse Rate 93 H 99 H 100 H Pulse Rate [ From Monitor] Respiratory 14 15 Rate Blood Pressure 123/75 122/74 122/74 O2 Sat by Pulse 92 92 Oximetry 09/25/20 10:00 Temperature Pulse Rate 97 H Pulse Rate [ From Monitor] Respiratory 17 Rate Blood Pressure 124/74 O2 Sat by Pulse 92 Oximetry - General Appearance General appearance: sedated on ventilator, intubated Neck: no JVD Respiratory: Present: Decreased Breath Sounds, Other (Intubated) Cardiology: S1S2 Gastrointestinal: normoactive bowel sounds Integumentary: warm and dry Neurologic: other (Sedated, unresponsive) Musculoskeletal: other (No edema) - Lab 09/25/20 07:50 09/25/20 07:50 Most recent lab results ABG pH 7.353 (7.320-7.450) 09/25/20 03:02 ABG pCO2 40.5 mm Hg 09/21/20 02:15 ABG pO2 244.1 mm Hg (80.0-90.0) H 09/21/20 02:15 ABG HCO3 17.7 mmol/L (20.0-26.0) L 09/21/20 02:15 ABG O2 Saturation 93.6 (0-100) 09/25/20 03:02 Calcium 8.3 mg/dL (8.4-10.2) L 09/25/20 07:50 Phosphorus 2.80 mg/dL (2.5-4.5) D 09/25/20 07:50 Urine Creatinine 60.4 mg/dL (0.1-20.0) H 09/21/20 14:27 Urine Sodium 108 mmol/L 09/21/20 14:27 Medications & Allergies - Medications Allergies/Adverse Reactions: Allergies No Known Allergies Allergy (Unverified 09/20/20 23:08) Home Medications: Home Medications Medication Instructions Recorded Confirmed Last Taken Type Furosemide [Lasix] 40 mg PO QDAY 09/21/20 09/21/20 Unknown History Simvastatin 20 mg PO QDAY 09/21/20 09/21/20 Unknown History amLODIPine [Norvasc] 5 mg PO DAILY 09/21/20 09/21/20 Unknown History carvediloL [Coreg] 25 mg PO BID 09/21/20 09/21/20 Unknown History lisinopriL [Zestril TAB] 40 mg PO QDAY 09/21/20 09/21/20 Unknown History Active Medications: Generic Name Dose Route Start Last Admin Trade Name Freq PRN Reason Stop Dose Admin Acetaminophen 650 mg 09/21/20 15:51 09/25/20 05:20 Acetaminophen 325 Mg/10.15 Ml Oral Liqd Unit Dose FEEDTUBE 650 mg Q6H PRN Administration Pain, Mild (1-3) Lipase/Protease/Amylase 1 each 09/22/20 08:53 Lipase 10,500/Protease 25,000/Amylase 43,750 (Units) Dr Greer FEEDTUBE PRN PRN For Clogged Feeding Tube Aspirin 325 mg 09/21/20 16:00 09/25/20 09:46 Aspirin 325 Mg Tab PO 325 mg QDAY PATSY Administration Atorvastatin Calcium 40 mg 09/23/20 22:00 09/24/20 21:25 Atorvastatin 40 Mg Tab PO 40 mg QHS PATSY Administration Famotidine 20 mg 09/25/20 10:00 09/25/20 09:46 Famotidine 20 Mg Tab PO 20 mg DAILY PATSY Administration Heparin Sodium (Porcine) 5,000 unit 09/21/20 22:00 09/25/20 09:46 Heparin 5,000 Unit/1 Ml Vial SUB-Q 5,000 unit Q12HR PATSY Administration Hydralazine HCl 5 mg 09/23/20 14:00 09/25/20 09:46 Hydralazine 20 Mg/1 Ml Inj IV 5 mg Q4HR PATSY Administration Hydrophilic Ointment 1 applic 09/20/20 22:59 Lip Therapy Vaseline TP Q2HR PRN Dry Lips Norepinephrine 4 mg in 250 mls @ 7.5 mls/hr 09/21/20 05:00 Levophed Drip 4 Mg/Ns 250 Ml IV TITR PATSY Protocol 2 MCG/MIN Fentanyl Citrate 2,000 mcg in 100 mls @ 5.105 mls/hr 09/22/20 11:30 09/25/20 07:50 Fentanyl Drip Premix IV 0 mcg/kg/hr TITR PATSY 0 mls/hr Titration Protocol 1 MCG/KG/HR Metoprolol Tartrate 5 mg 09/23/20 12:12 09/25/20 05:21 Metoprolol Tartrate 5 Mg/5 Ml Inj IV 5 mg Q6HR PATSY Administration Multi-Ingred Cream/Lotion/Oil/Oint 1 applic 09/20/20 22:59 Mineral Oil/Petrolatum, White Ophth Oint 3.5 Gm OU Q4HR PRN Dry Eye(s) Ondansetron HCl 4 mg 09/21/20 01:24 Ondansetron 4 Mg/2 Ml Inj IV Q8H PRN Nausea And Vomiting Simple Syrup 15 ml 09/22/20 08:53 Simple Syrup 15 Ml FEEDTUBE PRN PRN Hypoglycemia Simple Syrup 30 ml 09/22/20 08:53 Simple Syrup 15 Ml FEEDTUBE PRN PRN Hypoglycemia Sodium Bicarbonate 325 mg 09/22/20 08:53 Sodium Bicarbonate 325 Mg Tab FEEDTUBE PRN PRN For Clogged Feeding Tube Sodium Chloride 10 ml 09/21/20 10:00 09/25/20 09:47 Sodium Chloride 0.9% 10 Ml Flush Syringe IV 10 ml BID PATSY Administration Sodium Chloride 10 ml 09/21/20 01:24 09/24/20 18:21 Sodium Chloride 0.9% 10 Ml Flush Syringe IV 10 ml PRN PRN Administration LINE FLUSH
[2020-09-25] MEDS ORDERED: DEXTROSE 5% IN WATER 1,000 ML IV SCH (12:00)
--- NOTE | 2020-09-25 12:06 | Magnetic Resonance Report ---
MRI BRAIN WITHOUT CONTRAST, MRA HEAD WITHOUT CONTRAST INDICATION / CLINICAL INFORMATION: Stroke, unresponsive. TECHNIQUE: Multiplanar, multi sequential MRI images of the brain. Routine MRA of the head is performed. 3-D/MIP reformats postprocessed. Percentage stenosis is determined by direct quantitative measurements of di stal internal carotid artery diameter compared with normal reference segments or by criteria similar to NASCET where applicable. COMPARISON: Head CT on 09/23/2020 FINDINGS: MR BRAIN: BRAIN / INTRACRANIAL CONTENTS: There is diffuse cortical restricted diffusion and edema in the cerebr al cortex. There is no hemorrhage, hydrocephalus, or herniation. The ventricular and cisternal size a ppears normal for age. CRANIOCERVICAL JUNCTION: No significant abnormality. VASCULAR FLOW-VOIDS: No significant abnormality. ORBITS: No significant abnormality of visualized orbits. SINUSES / MASTOIDS: Fluid layering in the paranasal sinuses is likely due to intubation. ADDITIONAL FINDINGS: None. MRA HEAD: Intracranial vertebral arteries: No significant abnormality. Basilar artery: No significant abnormality. Posterior cerebral arteries: No significant abnormality. Intracranial internal carotid arteries: No significant abnormality. Anterior cerebral arteries: No significant abnormality. Middle cerebral arteries: No significant abnormality. Additional findings: None. IMPRESSION: 1. Diffuse cerebral cortical restricted diffusion and edema indicative of diffuse cerebral edema, lik elly due to global anoxic brain injury. Signer Name: Fortunato Mathews MD Signed: 09/25/2020 12:02 PM Workstation Name: [id number]
--- NOTE | 2020-09-25 13:25 | Progress Note ---
Assessment and Plan Assessment and plan: This is a 50-year-old male with heart failure and hypertension who presents to the emergency department on 09/21 with cardiac arrest after syncopal episode about 45 minutes prior to arrival to the emergency department. Upon arrival to the emergency department patient was found to be hypotensive and subsequently started on pressors with significant improvement in his blood pressure. Work-up in the emergency department reveals lactic acidosis, initial troponin within normal limits however subsequent troponins were elevated, no obvious ischemic changes on EKG, UDS positive for marijuana, urinalysis significant for urinary tract infection, BUN/creatinine slightly elevated 26/21. CXR showed severe ca rdiomegaly with mild interstitial pulmonary edema. Patient was admitted to the hospital service with consults to CCM, cardiology and nephrology s/p cardiac arrest, UTI, JAMEY, lactic acidosis and hypotension. MRI reviewed concerning for anoxic encephalopathy -CCM, cardiology, nephrology consulted, appreciate recommendations -s/p vasopressor support with Levophed, phenyl epinephrine, epinephrine -COVID 19 pcr (-) -Fentayl gtt -TF -09/20 CXR shows cardiomegaly -09/21 echocardiogram shows severely dilated left ventricle, the ventricle systolic function severely decreased, borderline concentric left ventricle hypertrophy, severe global hypokinesis of the left ventricle, LVEF 10 to 15%, mild MR, trace TR, RVSP is normal at 12 mmHg, trace pericardial effusion. -Accu-Cheks every 6 hours, SSI -Renal ultrasound pending -09/21 FENa calculated at 3.14 indicating ATN -09/21 CT head shows motion degradation of the image quality despite repeat imaging. However, there appears to be mild cerebral white matter disease as described without CT evidence of acute intracranial hemorrhage. -09/23 CT head shows loss of reyna-white differentiation diffusely likely due to diffuse cerebral edema, interval decrease in ventricular size size diffusely likely due to compression however no herniation identified, suspect developing infarct in the right occipital region without hemorrhage. Evaluation limited by artifact -09/23 MRI brain without contrast pending -09/23 MRA/MRV head without contrast pending -09/23 Bilateral carotid ultrasound pending -Hemoglobin A1c, hepatic panel pending -Trend CBC, BMP 09/22: Patient was started on a fentanyl drip and propofol drip was increased. At the time of my examination patient is on CMV tidal and 450, rate 20, PEEP 6 and FiO2 25%. Patient had a T-max of 101.9 overnight. Today we removed Park catheter and femoral CVL. Plan to obtain PICC/PIV. Started TF today. 09/23: CT head obtained yesterday shows diffuse cerebral edema and a new suspected developing infarct in the right occipital region. Patient has worsening renal function today and hyperphosphatemia. The time of my examination patient was on CMV tidal 450, rate 20, PEEP 625% FiO2 and sedated on fentanyl at 2 mcg. CCM to update family on the findings. CVA work-up ordered. Renal function worsened today. 09/24: Patient has hyponatremia, hypochloremia, metabolic acidosis, slightly improved renal function. CCM discussion with family today regarding prognosis. Remains sedated on fentanyl CMV TV 450, R 20, PEEP 6, FiO2 25%. Park was replaced for retention. 09/25: Mr. Avelar unfortunately remains unresponsive no pupillary reflex appreciated. Still with fever. Start empiric antibiotics and obtain cultures. Although fever could be central. Continue ventilatory support. MRI is concerning for anoxic encephalopathy with global edema. Patient with severe hypernatremia. Will obtain neurosurgery evaluation and also ID evaluation. Free water has been started by nephrology. Cardiology input appreciated. S/p cardiac arrest Acute hypoxic respiratory failure Acute toxic and anoxic metabolic encephalopathy Acute kidney injury with underlying ATN Sepsis Acute cystitis Leukocytosis Coagulopathic Hyperchloremia Metabolic acidosis Lactic acidosis Hypertension Prognosis is poor GI/DVT prophylaxis: PPI, heparin subcu, SCDs to bilateral lower extremities while in bed Disposition: ICU The high probability of a clinically significant, sudden or life threatening deterioration of the [multi] system(s) required my full and direct attention, intervention and personal management. The aggregate critical care time was [35] minutes. This time is in addition to time spent performing reported procedures but includes the following: [x] Data Review and interpretation [x] Patient assessment and monitoring of vital signs [x] Documentation [x] Medication orders and management History Interval history: Patient seen and examined nonresponsive, remains on full ventilatory support Hospitalist Physical - Physical exam Narrative exam: General appearance: Present: other (Unresponsive, on the vent) - EENT Eyes: Absent: PERRL ENT: clear oral mucosa - Neck Neck: Absent: masses or JVD, cervical LAD - Respiratory Respiratory effort: normal Respiratory: bilateral: CTA - Cardiovascular Rhythm: regular Heart Sounds: Present: S1 & S2. Absent: systolic murmur, diastolic murmur - Extremities Extremities: no ischemia, pulses intact, pulses symmetrical, No edema, normal color Peripheral Pulses: within normal limits - Abdominal General gastrointestinal: soft, non-tender, non-distended, normal bowel sounds - Integumentary Integumentary: Present: warm, dry - Neurologic Neurologic: other (no response to painful stimuli, no cough/gag reflex) - Allied Health Allied health notes reviewed: nursing, RT - Constitutional Vitals: Temp Pulse Resp BP Pulse Ox 103 F H 110 H 22 136/88 95 09/25/20 12:00 09/25/20 12:44 09/25/20 12:30 09/25/20 12:44 09/25/20 12:30 General appearance: Present: other (Unresponsive, on the vent) HEART Score - HEART Score Troponin: Troponin T 1.880 ng/mL (0.00-0.029) H* D 09/21/20 04:34 Results - Labs CBC & Chem 7: 09/25/20 07:50 09/25/20 07:50 Labs: Laboratory Last Values WBC 14.0 K/mm3 (4.5-11.0) H 09/25/20 07:50 RBC 4.45 M/mm3 (3.65-5.03) 09/25/20 07:50 Hgb 13.2 gm/dl (11.8-15.2) 09/25/20 07:50 Hct 41.8 % (35.5-45.6) 09/25/20 07:50 MCV 94 fl (84-94) 09/25/20 07:50 MCH 30 pg (28-32) 09/25/20 07:50 MCHC 32 % (32-34) 09/25/20 07:50 RDW 16.5 % (13.2-15.2) H 09/25/20 07:50 Plt Count 171 K/mm3 (140-440) 09/25/20 07:50 Lymph % (Auto) 6.7 % (13.4-35.0) L 09/25/20 07:50 [place] % (Auto) 9.1 % (0.0-7.3) H 09/25/20 07:50 Eos % (Auto) 0.0 % (0.0-4.3) 09/25/20 07:50 Baso % (Auto) 0.1 % (0.0-1.8) 09/25/20 07:50 Lymph # (Auto) 0.9 K/mm3 (1.2-5.4) L 09/25/20 07:50 [place] # (Auto) 1.3 K/mm3 (0.0-0.8) H 09/25/20 07:50 Eos # (Auto) 0.0 K/mm3 (0.0-0.4) 09/25/20 07:50 Baso # (Auto) 0.0 K/mm3 (0.0-0.1) 09/25/20 07:50 Add Manual Diff Complete 09/20/20 23:02 Total Counted 100 09/20/20 23:02 Seg Neutrophils % 84.1 % (40.0-70.0) H 09/25/20 07:50 Seg Neuts % (Manual) 34.0 % (40.0-70.0) L 09/20/20 23:02 Lymphocytes % (Manual) 57.0 % (13.4-35.0) H 09/20/20 23:02 Monocytes % (Manual) 6.0 % (0.0-7.3) 09/20/20 23:02 Eosinophils % (Manual) 2.0 % (0.0-4.3) 09/20/20 23:02 Basophils % (Manual) 1.0 % (0.0-1.8) 09/20/20 23:02 Nucleated RBC % Not Reportable 09/20/20 23:02 Seg Neutrophils # 11.8 K/mm3 (1.8-7.7) H 09/25/20 07:50 Seg Neutrophils # Man 1.9 K/mm3 (1.8-7.7) 09/20/20 23:02 Band Neutrophils # 0.0 K/mm3 09/20/20 23:02 Lymphocytes # (Manual) 3.2 K/mm3 (1.2-5.4) 09/20/20 23:02 Abs React Lymphs (Man) 0.0 K/mm3 09/20/20 23:02 Monocytes # (Manual) 0.3 K/mm3 (0.0-0.8) 09/20/20 23:02 Eosinophils # (Manual) 0.1 K/mm3 (0.0-0.4) 09/20/20 23:02 Basophils # (Manual) 0.1 K/mm3 (0.0-0.1) 09/20/20 23:02 Metamyelocytes # 0.0 K/mm3 09/20/20 23:02 Myelocytes # 0.0 K/mm3 09/20/20 23:02 Promyelocytes # 0.0 K/mm3 09/20/20 23:02 Blast Cells # 0.0 K/mm3 09/20/20 23:02 WBC Morphology Not Reportable 09/20/20 23:02 Hypersegmented Neuts Not Reportable 09/20/20 23:02 Hyposegmented Neuts Not Reportable 09/20/20 23:02 Hypogranular Neuts Not Reportable 09/20/20 23:02 Smudge Cells Not Reportable 09/20/20 23:02 Toxic Granulation Not Reportable 09/20/20 23:02 Toxic Vacuolation Not Reportable 09/20/20 23:02 Dohle Bodies Not Reportable 09/20/20 23:02 Pelger-Huet Anomaly Not Reportable 09/20/20 23:02 Santosh Rods Not Reportable 09/20/20 23:02 Platelet Estimate Not Reportable 09/20/20 23:02 Clumped Platelets Not Reportable 09/20/20 23:02 Plt Clumps, EDTA Not Reportable 09/20/20 23:02 Large Platelets Not Reportable 09/20/20 23:02 Giant Platelets Not Reportable 09/20/20 23:02 Platelet Satelliting Not Reportable 09/20/20 23:02 Plt Morphology Comment Not Reportable 09/20/20 23:02 RBC Morphology Normal 09/20/20 23:02 Dimorphic RBCs Not Reportable 09/20/20 23:02 Polychromasia Not Reportable 09/20/20 23:02 Hypochromasia Not Reportable 09/20/20 23:02 Poikilocytosis Not Reportable 09/20/20 23:02 Anisocytosis Not Reportable 09/20/20 23:02 Microcytosis Not Reportable 09/20/20 23:02 Macrocytosis Not Reportable 09/20/20 23:02 Spherocytes Not Reportable 09/20/20 23:02 Pappenheimer Bodies Not Reportable 09/20/20 23:02 Sickle Cells Not Reportable 09/20/20 23:02 Target Cells Not Reportable 09/20/20 23:02 Tear Drop Cells Not Reportable 09/20/20 23:02 Ovalocytes Not Reportable 09/20/20 23:02 Helmet Cells Not Reportable 09/20/20 23:02 [place] Bodies Not Reportable 09/20/20 23:02 Xenia Rings Not Reportable 09/20/20 23:02 [place] Cells Not Reportable 09/20/20 23:02 Bite Cells Not Reportable 09/20/20 23:02 Crenated Cell Not Reportable 09/20/20 23:02 Elliptocytes Not Reportable 09/20/20 23:02 Acanthocytes (Spur) Not Reportable 09/20/20 23:02 Rouleaux Not Reportable 09/20/20 23:02 Hemoglobin C Crystals Not Reportable 09/20/20 23:02 Schistocytes Not Reportable 09/20/20 23:02 Malaria parasites Not Reportable 09/20/20 23:02 Eduardo Bodies Not Reportable 09/20/20 23:02 Hem Pathologist Commnt No 09/20/20 23:02 PT 15.5 Sec. (12.2-14.9) H 09/22/20 08:26 INR 1.25 (0.87-1.13) H 09/22/20 08:26 APTT 30.6 Sec. (24.2-36.6) 09/21/20 10:08 ABG pH 7.353 (7.320-7.450) 09/25/20 03:02 POC ABG pCO2 42.6 mmHg (32.0-48.0) 09/25/20 03:02 ABG pCO2 40.5 mm Hg 09/21/20 02:15 POC ABG pO2 67.4 mmHg (83-108) L 09/25/20 03:02 ABG pO2 244.1 mm Hg (80.0-90.0) H 09/21/20 02:15 POC ABG HCO3 23.1 09/25/20 03:02 ABG HCO3 17.7 mmol/L (20.0-26.0) L 09/21/20 02:15 ABG O2 Saturation 93.6 (0-100) 09/25/20 03:02 ABG O2 Content 24.2 (0.0-44) 09/21/20 02:15 POC ABG Base Excess -2.4 09/25/20 03:02 ABG Base Excess -8.8 mmol/L (-2.0-3.0) L 09/21/20 02:15 ABG Hemoglobin 14.3 (12.0-17.5) 09/25/20 03:02 ABG Oxyhemoglobin 92.3 (94-98) L 09/25/20 03:02 ABG Carboxyhemoglobin 1.3 % (0.0-5.0) 09/21/20 02:15 ABG Methemoglobin 0.3 (0.0-1.5) 09/25/20 03:02 ABG Sodium 157.3 mmol/L (136.0-145.0) H 09/25/20 03:02 ABG Potassium 3.7 mmol/L (3.40-4.50) 09/25/20 03:02 ABG Chloride 125.0 mmol/L (98-107) H 09/25/20 03:02 ABG Glucose 147 mg/dL (65-95) H 09/25/20 03:02 Oxyhemoglobin 97.4 % (95.0-99.0) 09/21/20 02:15 Carboxyhemoglobin 1.1 (0.5-1.5) 09/25/20 03:02 FiO2 21 % 09/21/20 02:15 FiO2 % 25.0 09/25/20 03:02 Sodium 160 mmol/L (137-145) H D 09/25/20 07:50 Potassium 3.7 mmol/L (3.6-5.0) 09/25/20 07:50 Chloride 124.2 mmol/L (98-107) H 09/25/20 07:50 Carbon Dioxide 26 mmol/L (22-30) D 09/25/20 07:50 Anion Gap 14 mmol/L 09/25/20 07:50 BUN 54 mg/dL (9-20) H 09/25/20 07:50 Creatinine 2.8 mg/dL (0.8-1.3) H 09/25/20 07:50 Estimated GFR 29 ml/min 09/25/20 07:50 BUN/Creatinine Ratio 19 % 09/25/20 07:50 Glucose 124 mg/dL (75-100) H 09/25/20 07:50 POC Glucose 109 mg/dL (70-105) H 09/25/20 11:56 Lactic Acid 1.00 mmol/L (0.7-2.0) 09/24/20 04:00 Calcium 8.3 mg/dL (8.4-10.2) L 09/25/20 07:50 Phosphorus 2.80 mg/dL (2.5-4.5) D 09/25/20 07:50 Total Bilirubin 0.30 mg/dL (0.1-1.2) 09/20/20 23:02 AST 59 units/L (5-40) H 09/20/20 23:02 ALT 30 units/L (7-56) 09/20/20 23:02 Alkaline Phosphatase 88 units/L (35-129) 09/20/20 23:02 Total Creatine Kinase 3606 units/L (55-170) H 09/21/20 15:54 Troponin T 1.880 ng/mL (0.00-0.029) H* D 09/21/20 04:34 Total Protein 7.0 g/dL (6.3-8.2) 09/20/20 23:02 Albumin 4.1 g/dL (3.9-5) 09/20/20 23:02 Albumin/Globulin Ratio 1.4 % 09/20/20 23:02 Triglycerides 43 mg/dL (2-149) 09/21/20 02:01 Cholesterol 152 mg/dL (50-199) 09/21/20 02:01 LDL Cholesterol Direct 92 mg/dL (50-130) 09/21/20 02:01 HDL Cholesterol 60 mg/dL (40-59) H 09/21/20 02:01 Cholesterol/HDL Ratio 2.53 % 09/21/20 02:01 Arterial Blood Glucose 147 mg/dL (65-95) H 09/25/20 03:02 Arterial Blood Ionized Calcium 4.8 mg/dL (4.6-5.3) 09/25/20 03:02 Urine Color Yellow (Yellow) 09/21/20 14:27 Urine Turbidity Slightly-cloudy (Clear) 09/21/20 14:27 Urine pH 5.0 (5.0-7.0) 09/21/20 14:27 Ur Specific Loop 1.011 (1.003-1.030) 09/21/20 14:27 Urine Protein 100 mg/dl mg/dL (Negative) 09/21/20 14:27 Urine Glucose (UA) 50 mg/dL (Negative) 09/21/20 14:27 Urine Ketones Neg mg/dL (Negative) 09/21/20 14:27 Urine Blood Lg (Negative) 09/21/20 14:27 Urine Nitrite Neg (Negative) 09/21/20 14:27 Urine Bilirubin Neg (Negative) 09/21/20 14:27 Urine Urobilinogen < 2.0 mg/dL (<2.0) 09/21/20 14:27 Ur Leukocyte Esterase Neg (Negative) 09/21/20 14:27 Urine WBC (Auto) 12.0 /HPF (0.0-6.0) H 09/21/20 14:27 Urine RBC (Auto) 48.0 /HPF (0.0-6.0) 09/21/20 14:27 U Epithel Cells (Auto) < 1.0 /HPF (0-13.0) 09/21/20 14:27 Urine Bacteria (Auto) 2+ /HPF (Negative) 09/21/20 14:27 Urine Mucus Few /HPF 09/21/20 14:27 Urine Yeast (Budding) 2+ /HPF 09/20/20 23:35 Urine Sperm 1+ /HPF (OLIVE BRINE TESTER) 09/20/20 23:35 Urine Creatinine 60.4 mg/dL (0.1-20.0) H 09/21/20 14:27 Urine Sodium 108 mmol/L 09/21/20 14:27 Urine Urea Nitrogen 305 09/21/20 14:27 Urine Opiates Screen Presumptive negative 09/20/20 Unknown Urine Methadone Screen Presumptive negative 09/20/20 Unknown Ur Barbiturates Screen Presumptive negative 09/20/20 Unknown Ur Phencyclidine Scrn Presumptive negative 09/20/20 Unknown Ur Amphetamines Screen Presumptive negative 09/20/20 Unknown U Benzodiazepines Scrn Presumptive negative 09/20/20 Unknown Urine Cocaine Screen Presumptive negative 09/20/20 Unknown U Marijuana (THC) Screen Presumptive positive 09/20/20 Unknown Drugs of Abuse Note Disclamer 09/20/20 Unknown Coronavirus (PCR) Negative (Negative) 09/21/20 10:13 Microbiology: Microbiology 09/21/20 02:01 Peripheral/Venous Blood Culture - Preliminary NO GROWTH AFTER 4 DAYS 09/21/20 02:03 Peripheral/Venous Blood Culture - Preliminary NO GROWTH AFTER 4 DAYS Park/IV: Voiding Method Indwelling Catheter Active Medications - Current Medications Current Medications: Generic Name Dose Route Start Last Admin Trade Name Freq PRN Reason Stop Dose Admin Acetaminophen 650 mg 09/21/20 15:51 09/25/20 12:43 Acetaminophen 325 Mg/10.15 Ml Oral Liqd Unit Dose FEEDTUBE 650 mg Q6H PRN Administration Pain, Mild (1-3) Lipase/Protease/Amylase 1 each 09/22/20 08:53 Lipase 10,500/Protease 25,000/Amylase 43,750 (Units) Dr Cap FEEDTUBE PRN PRN For Clogged Feeding Tube Aspirin 325 mg 09/21/20 16:00 09/25/20 09:46 Aspirin 325 Mg Tab PO 325 mg QDAY PATSY Administration Atorvastatin Calcium 40 mg 09/23/20 22:00 09/24/20 21:25 Atorvastatin 40 Mg Tab PO 40 mg QHS PATSY Administration Famotidine 20 mg 09/25/20 10:00 09/25/20 09:46 Famotidine 20 Mg Tab PO 20 mg DAILY PATSY Administration Heparin Sodium (Porcine) 5,000 unit 09/21/20 22:00 09/25/20 09:46 Heparin 5,000 Unit/1 Ml Vial SUB-Q 5,000 unit Q12HR PATSY Administration Hydralazine HCl 5 mg 09/23/20 14:00 09/25/20 09:46 Hydralazine 20 Mg/1 Ml Inj IV 5 mg Q4HR PATSY Administration Hydrophilic Ointment 1 applic 09/20/20 22:59 Lip Therapy Vaseline TP Q2HR PRN Dry Lips Norepinephrine 4 mg in 250 mls @ 7.5 mls/hr 09/21/20 05:00 Levophed Drip 4 Mg/Ns 250 Ml IV TITR PATSY Protocol 2 MCG/MIN Fentanyl Citrate 2,000 mcg in 100 mls @ 5.105 mls/hr 09/22/20 11:30 09/25/20 07:50 Fentanyl Drip Premix IV 0 mcg/kg/hr TITR PATSY 0 mls/hr Titration Protocol 1 MCG/KG/HR Metoprolol Tartrate 5 mg 09/23/20 12:12 09/25/20 12:44 Metoprolol Tartrate 5 Mg/5 Ml Inj IV 5 mg Q6HR PATSY Administration Multi-Ingred Cream/Lotion/Oil/Oint 1 applic 09/20/20 22:59 Mineral Oil/Petrolatum, White Ophth Oint 3.5 Gm OU Q4HR PRN Dry Eye(s) Ondansetron HCl 4 mg 09/21/20 01:24 Ondansetron 4 Mg/2 Ml Inj IV Q8H PRN Nausea And Vomiting Simple Syrup 15 ml 09/22/20 08:53 Simple Syrup 15 Ml FEEDTUBE PRN PRN Hypoglycemia Simple Syrup 30 ml 09/22/20 08:53 Simple Syrup 15 Ml FEEDTUBE PRN PRN Hypoglycemia Sodium Bicarbonate 325 mg 09/22/20 08:53 Sodium Bicarbonate 325 Mg Tab FEEDTUBE PRN PRN For Clogged Feeding Tube Sodium Chloride 10 ml 09/21/20 10:00 09/25/20 09:47 Sodium Chloride 0.9% 10 Ml Flush Syringe IV 10 ml BID PATSY Administration Sodium Chloride 10 ml 09/21/20 01:24 09/24/20 18:21 Sodium Chloride 0.9% 10 Ml Flush Syringe IV 10 ml PRN PRN Administration LINE FLUSH Nutrition/Malnutrition Assess - Dietary Evaluation Nutrition/Malnutrition Findings: Nutrition Notes Start: 09/21/20 08:17 Freq: Status: Active Protocol: Document 09/22/20 08:32 CW (Rec: 09/22/20 08:52 CW [id number]) Nutrition Notes Initial or Follow up Reassessment Current Diagnosis Acute Kidney Injury, Hypertension,Heart Failure, Respiratory Failure Other Pertinent Diagnosis Cardiac Arrest, UTI, anoxic brain injury Current Diet TF Labs/Tests 09/21/2020 Na 146 K 3.5 BUN 37 Cr 2.8 Pertinent Medications propofol at 25.504 ml/hr (673 kcal) D5 1/2 NS at 75 ml/hr Dobutamine, Levophed, epinephrine, phenylephrine NS 2 L Height 6 ft Weight 102.1 kg Christopher Body Weight (kg) 80.90 BMI 30.5 Weight Status Obese Subjective/Other Information MD consult for write/manage TF . Pt remains on mechanical vent. TF adjusted for ~700 kcal of propofol provided. Pt not meeting protein needs at this time d/t JAMEY Percent of energy/protein needs met: 0%/0% Burn Absent Trauma Absent GI Symptoms None Current % PO Negligible Minimum of two criteria No physical signs of malnutrition #1 Nutrition Diagnosis Inadequate oral intake Diagnosis Progress(for reassessment Continues documentation) Is patient on ventilator? Yes Is Patient Ambulatory and/or Out of Bed No REE-([facility]-confined to bed) 2318.184 Kcal/Kg value to use for calculation 19 Approximate Energy Requirements Using 1940 kcal/Kg Calculation Used for Recommendations Kcal/kg Additional Notes Protein needs are >162g (>2g/ kgIBW) Fluid needs are 1ml/kcal Nutrition Intervention Change Diet Order: Initiate TF Nutrition Support: Vital AF 1.2 at 45 ml/hr with a free water flush of 275 ml q4h for hypernatremia. Once hypernatremia resolves, continue free water flush of 200 ml q4h. Kcal 1,296 Protein (gm) 81 Fluid (mL) 876 Goal #1 Meet at least 75% of kcal and protein needs as medically feasible Anticipated Discharge Needs: Unable to determine at this time Follow-Up By: 09/25/20 Additional Comments F/U for TF at goal, TF tolerance, vent status, propofol rate
[2020-09-25] MEDS ORDERED: SIMPLE SYRUP 15 ML FEEDTUBE PRN ×2 (14:22)
[2020-09-25] MEDS ORDERED: LIPASE 10,500/PROTEASE 25,000/AMYLASE 43,750 (UNITS) DR CAP FEEDTUBE PRN (14:22)
[2020-09-25] MEDS ORDERED: SODIUM BICARBONATE 325 MG TAB FEEDTUBE PRN (14:22)
--- NOTE | 2020-09-25 14:31 | Consultation ---
History of Present Illness - Reason for Consult Consult date: 09/25/20 Fever Requesting physician: CHERIE WARE - History of Present Illness 50-year-old male with history of hypertension, admitted on 09/20/2020 secondary to syncope followed up by outside cardiac arrest. Patient to the ED 45 minutes after cardiac clearance. Patient is intubated, unresponsive, unable to provide history. In the ED, initial temperature 97.9--> 101.9, HR 111, RR 31, O2 sat 100%, BP 118/97--> 56/37. Initial WBC 19.2. Platelets 193. Creatinine 2.1. Glucose 227. Lactate 8.7. Troponins 0.8. AST 97.7 WBC 8 leukocyte esterase. SARS-CoV-2 PCR negative. Sputum culture 09/20/2020 upper respiratory mihsa. Urine culture 09/20/2020 10-100,000 mixed colonies. Blood culture 09/21/2020 no gr owth today. Urine drug screen positive for marijuana. Chest x-ray with severe cardiomegaly with interstitial pulmonary edema. Brain MRI shows diffuse cerebral cortical restricted diffuse edema consistent with anoxic brain. Transthoracic echo shows severely dilated left ventricle, the ventricle systolic function severely decreased, borderline concentric left ventricle hypertrophy, severe global hypokinesis of the left ventricle, LVEF 10 to 15%, mild MR, trace TR, RVSP is normal at 12 mmHg, trace pericardial effusion. Review of Systems: Unable to obtain Past History Past Medical History: heart failure, hypertension Past Surgical History: Other (Unknown) Social history: other (Unknown) Family history: other (Unknown) Medications and Allergies Allergies Allergy/AdvReac Type Severity Reaction Status Date / Time No Known Allergies Allergy Unverified 09/20/20 23:08 Home Medications Medication Instructions Recorded Confirmed Last Taken Type Furosemide [Lasix] 40 mg PO QDAY 09/21/20 09/21/20 Unknown History Simvastatin 20 mg PO QDAY 09/21/20 09/21/20 Unknown History amLODIPine [Norvasc] 5 mg PO DAILY 09/21/20 09/21/20 Unknown History carvediloL [Coreg] 25 mg PO BID 09/21/20 09/21/20 Unknown History lisinopriL [Zestril TAB] 40 mg PO QDAY 09/21/20 09/21/20 Unknown History Active Meds: Active Medications Acetaminophen (Acetaminophen 325 Mg/10.15 Ml Oral Liqd Unit Dose) 650 mg FEEDTUBE Q6H PRN PRN Reason: Pain, Mild (1-3) Last Admin: 09/25/20 12:43 Dose: 650 mg Documented by: Lipase/Protease/Amylase (Lipase 10,500/Protease 25,000/Amylase 43,750 (Units) Dr Greer) 1 each FEEDTUBE PRN PRN PRN Reason: For Clogged Feeding Tube Lipase/Protease/Amylase (Lipase 10,500/Protease 25,000/Amylase 43,750 (Units) Dr Greer) 1 each FEEDTUBE PRN PRN PRN Reason: For Clogged Feeding Tube Aspirin (Aspirin 325 Mg Tab) 325 mg PO QDAY [facility] Last Admin: 09/25/20 09:46 Dose: 325 mg Documented by: Atorvastatin Calcium (Atorvastatin 40 Mg Tab) 40 mg PO QHS [facility] Last Admin: 09/24/20 21:25 Dose: 40 mg Documented by: Famotidine (Famotidine 20 Mg Tab) 20 mg PO DAILY [facility] Last Admin: 09/25/20 09:46 Dose: 20 mg Documented by: Heparin Sodium (Porcine) (Heparin 5,000 Unit/1 Ml Vial) 5,000 unit SUB-Q Q12HR [facility] Last Admin: 09/25/20 09:46 Dose: 5,000 unit Documented by: Hydralazine HCl (Hydralazine 20 Mg/1 Ml Inj) 5 mg IV Q4HR [facility] Last Admin: 09/25/20 09:46 Dose: 5 mg Documented by: Hydrophilic Ointment (Lip Therapy Vaseline) 1 applic TP Q2HR PRN PRN Reason: Dry Lips Norepinephrine (Levophed Drip 4 Mg/Ns 250 Ml) 4 mg in 250 mls @ 7.5 mls/hr IV TITR [facility]; Protocol Fentanyl Citrate (Fentanyl Drip Premix) 2,000 mcg in 100 mls @ 5.105 mls/hr IV TITR [facility]; Protocol Last Titration: 09/25/20 07:50 Dose: 0 mcg/kg/hr, 0 mls/hr Documented by: Metoprolol Tartrate (Metoprolol Tartrate 5 Mg/5 Ml Inj) 5 mg IV Q6HR [facility] Last Admin: 09/25/20 12:44 Dose: 5 mg Documented by: Multi-Ingred Cream/Lotion/Oil/Oint (Mineral Oil/Petrolatum, White Ophth Oint 3.5 Gm) 1 applic OU Q4HR PRN PRN Reason: Dry Eye(s) Ondansetron HCl (Ondansetron 4 Mg/2 Ml Inj) 4 mg IV Q8H PRN PRN Reason: Nausea And Vomiting Simple Syrup (Simple Syrup 15 Ml) 15 ml FEEDTUBE PRN PRN PRN Reason: Hypoglycemia Simple Syrup (Simple Syrup 15 Ml) 30 ml FEEDTUBE PRN PRN PRN Reason: Hypoglycemia Simple Syrup (Simple Syrup 15 Ml) 15 ml FEEDTUBE PRN PRN PRN Reason: Hypoglycemia Simple Syrup (Simple Syrup 15 Ml) 30 ml FEEDTUBE PRN PRN PRN Reason: Hypoglycemia Sodium Bicarbonate (Sodium Bicarbonate 325 Mg Tab) 325 mg FEEDTUBE PRN PRN PRN Reason: For Clogged Feeding Tube Sodium Bicarbonate (Sodium Bicarbonate 325 Mg Tab) 325 mg FEEDTUBE PRN PRN PRN Reason: For Clogged Feeding Tube Sodium Chloride (Sodium Chloride 0.9% 10 Ml Flush Syringe) 10 ml IV BID [facility] Last Admin: 09/25/20 09:47 Dose: 10 ml Documented by: Sodium Chloride (Sodium Chloride 0.9% 10 Ml Flush Syringe) 10 ml IV PRN PRN PRN Reason: LINE FLUSH Last Admin: 09/24/20 18:21 Dose: 10 ml Documented by: Physical Examination - Physical Exam Narrative exam: General appearance: Intubated unresponsive Eyes: anicteric sclerae, moist conjunctivae; no lid-lag; PERRLA HENT: Normocephalic, Atraumatic; normal external ears, nares open, oropharynx endotracheal tube in place Neck: supple, tracheal midline, no JVD Lungs: Bilateral crackles CV: RRR no murmur Abdomen: Soft, non-tender; no masses or hepatosplenomegaly Extremities: no edema, no cyanosis Skin: No rash. Psych: Unresponsive Neuro: Unresponsive - Constitutional Vitals: Vital Signs Temp Pulse Resp BP Pulse Ox 103 F H 110 H 22 136/88 95 09/25/20 12:00 09/25/20 12:44 09/25/20 12:30 09/25/20 12:44 09/25/20 12:30 Temperature -Last 24 Hours Temperature 103 F Temperature 102.3 F Temperature 102.9 F Temperature 102 F Temperature 101.5 F Results - Labs CBC & Chem 7: 09/25/20 07:50 09/25/20 14:50 Labs: Abnormal lab results 09/24/20 09/24/20 09/24/20 Range/Units 12:03 17:39 23:15 WBC (4.5-11.0) K/mm3 RDW (13.2-15.2) % Lymph % (Auto) (13.4-35.0) % Sac % (Auto) (0.0-7.3) % Lymph # (Auto) (1.2-5.4) K/mm3 Sac # (Auto) (0.0-0.8) K/mm3 Seg Neutrophils % (40.0-70.0) % Seg Neutrophils # (1.8-7.7) K/mm3 POC ABG pO2 (83-108) mmHg ABG Oxyhemoglobin (94-98) ABG Sodium (136.0-145.0) mmol/L ABG Chloride (98-107) mmol/L ABG Glucose (65-95) mg/dL Sodium (137-145) mmol/L Chloride (98-107) mmol/L BUN (9-20) mg/dL Creatinine (0.8-1.3) mg/dL Glucose (75-100) mg/dL POC Glucose 120 H 155 H 109 H (70-105) mg/dL Calcium (8.4-10.2) mg/dL Arterial Blood Glucose (65-95) mg/dL 09/25/20 09/25/20 09/25/20 Range/Units 03:02 05:16 07:50 WBC 14.0 H (4.5-11.0) K/mm3 RDW 16.5 H (13.2-15.2) % Lymph % (Auto) 6.7 L (13.4-35.0) % Sac % (Auto) 9.1 H (0.0-7.3) % Lymph # (Auto) 0.9 L (1.2-5.4) K/mm3 Sac # (Auto) 1.3 H (0.0-0.8) K/mm3 Seg Neutrophils % 84.1 H (40.0-70.0) % Seg Neutrophils # 11.8 H (1.8-7.7) K/mm3 POC ABG pO2 67.4 L (83-108) mmHg ABG Oxyhemoglobin 92.3 L (94-98) ABG Sodium 157.3 H (136.0-145.0) mmol/L ABG Chloride 125.0 H (98-107) mmol/L ABG Glucose 147 H (65-95) mg/dL Sodium (137-145) mmol/L Chloride (98-107) mmol/L BUN (9-20) mg/dL Creatinine (0.8-1.3) mg/dL Glucose (75-100) mg/dL POC Glucose 126 H (70-105) mg/dL Calcium (8.4-10.2) mg/dL Arterial Blood Glucose 147 H (65-95) mg/dL 09/25/20 09/25/20 Range/Units 07:50 11:56 WBC (4.5-11.0) K/mm3 RDW (13.2-15.2) % Lymph % (Auto) (13.4-35.0) % Sac % (Auto) (0.0-7.3) % Lymph # (Auto) (1.2-5.4) K/mm3 Sac # (Auto) (0.0-0.8) K/mm3 Seg Neutrophils % (40.0-70.0) % Seg Neutrophils # (1.8-7.7) K/mm3 POC ABG pO2 (83-108) mmHg ABG Oxyhemoglobin (94-98) ABG Sodium (136.0-145.0) mmol/L ABG Chloride (98-107) mmol/L ABG Glucose (65-95) mg/dL Sodium 160 H D (137-145) mmol/L Chloride 124.2 H (98-107) mmol/L BUN 54 H (9-20) mg/dL Creatinine 2.8 H (0.8-1.3) mg/dL Glucose 124 H (75-100) mg/dL POC Glucose 109 H (70-105) mg/dL Calcium 8.3 L (8.4-10.2) mg/dL Arterial Blood Glucose (65-95) mg/dL Assessment and Plan Cultures: SARS-CoV-2 PCR negative. Sputum culture 09/20/2020 upper respiratory misha. Urine culture 09/20/2020 10-100,000 mixed colonies. Blood culture 09/21/2020 no growth today. Assessment: 50-year-old male with history of hypertension, admitted on 09/20/2020 secondary to syncope followed up by outside cardiac arrest: #SIRS rule out sepsis: Present for admission with fever, tachycardia, hypotension, leukocytosis; likely secondary to xrtbrfy-kc-[id number]-hospital cardiac arrest +/-UTI. Chest x-ray without evidence of consolidation. Blood culture so far negative. Persistent fever likely secondary to central fever from anoxic brain injury. #UTI: Urine culture grew mixed bacteria. Completed Rocephin for 5 days. #Uctepel-qg-urx-hospital cardiac arrest: #Acute encephalopathy: Likely secondary to anoxic brain injury. Brain MRI shows diffuse cerebral cortical restricted diffuse edema consistent with anoxic brain. #Cardiomyopathy: Transthoracic echo shows severely dilated left ventricle, the ventricle systolic function severely decreased, borderline concentric left ventricle hypertrophy, severe global hypokinesis of the left ventricle, LVEF 10 to 15%, mild MR. Cardiology on board. #JAMEY: Worsening. #Transaminitis: Likely due to sepsis. Recommendations -Follow-up repeat blood cultures -Obtain respiratory cultures -MRSA PCR -Monitor off antibiotics. Completed Rocephin for 5 days for UTI. -Monitor fever likely central fever -Neuro consult Guarded prognosis Will follow. Briseida Antonio MD Infectious Diseases [employer] [facility] M [phone] O [phone]
--- NOTE | 2020-09-25 16:55 | Progress Note ---
Assessment and Plan Imp: 1. S/p CP arrest 2. Severe dilated CMP 3. Chronic systolic CHF 4. Anoxic encephalopathy 5. Acute respiratory failure, hypoxia 6. JAMEY 7. Hypernatremia Rec: 1. Hold sedation 2. Mentation precludes extubation 3. F/u ID and cardiology recs; agree fevers likely central in origin 4. TFs, SubQ heparin, Pepcid; free water flushes increased today; f/u labs in AM 5. D/w daughter and father today at bedside; patient now DNR; should strongly consider withdrawal of care/hospice as well 6. High complexity Plan of care reviewed w/ family, they understand/agree Subjective Date of service: 09/25/20 Principal diagnosis: Acute respiratory failure Interval history: No events. Off sedation and unresponsive on ventilator. Active Medications Acetaminophen (Acetaminophen 325 Mg/10.15 Ml Oral Liqd Unit Dose) 650 mg FEEDTUBE Q6H PRN PRN Reason: Pain, Mild (1-3) Last Admin: 09/25/20 19:42 Dose: 650 mg Documented by: Lipase/Protease/Amylase (Lipase 10,500/Protease 25,000/Amylase 43,750 (Units) Dr Greer) 1 each FEEDTUBE PRN PRN PRN Reason: For Clogged Feeding Tube Lipase/Protease/Amylase (Lipase 10,500/Protease 25,000/Amylase 43,750 (Units) Dr Cap) 1 each FEEDTUBE PRN PRN PRN Reason: For Clogged Feeding Tube Aspirin (Aspirin 325 Mg Tab) 325 mg PO QDAY [facility] Last Admin: 09/25/20 09:46 Dose: 325 mg Documented by: Atorvastatin Calcium (Atorvastatin 40 Mg Tab) 40 mg PO QHS [facility] Last Admin: 09/25/20 21:55 Dose: 40 mg Documented by: Famotidine (Famotidine 20 Mg Tab) 20 mg PO DAILY [facility] Last Admin: 09/25/20 09:46 Dose: 20 mg Documented by: Heparin Sodium (Porcine) (Heparin 5,000 Unit/1 Ml Vial) 5,000 unit SUB-Q Q12HR [facility] Last Admin: 09/25/20 21:56 Dose: 5,000 unit Documented by: Hydralazine HCl (Hydralazine 20 Mg/1 Ml Inj) 5 mg IV Q4HR [facility] Last Admin: 09/25/20 21:55 Dose: 5 mg Documented by: Hydrophilic Ointment (Lip Therapy Vaseline) 1 applic TP Q2HR PRN PRN Reason: Dry Lips Norepinephrine (Levophed Drip 4 Mg/Ns 250 Ml) 4 mg in 250 mls @ 7.5 mls/hr IV TITR PATSY; Protocol Fentanyl Citrate (Fentanyl Drip Premix) 2,000 mcg in 100 mls @ 5.105 mls/hr IV TITR PATSY; Protocol Last Titration: 09/25/20 18:17 Dose: 0 mcg/kg/hr, 0 mls/hr Documented by: Metoprolol Tartrate (Metoprolol Tartrate 5 Mg/5 Ml Inj) 5 mg IV Q6HR PATSY Last Admin: 09/25/20 18:23 Dose: 5 mg Documented by: Multi-Ingred Cream/Lotion/Oil/Oint (Mineral Oil/Petrolatum, White Ophth Oint 3.5 Gm) 1 applic OU Q4HR PRN PRN Reason: Dry Eye(s) Ondansetron HCl (Ondansetron 4 Mg/2 Ml Inj) 4 mg IV Q8H PRN PRN Reason: Nausea And Vomiting Simple Syrup (Simple Syrup 15 Ml) 15 ml FEEDTUBE PRN PRN PRN Reason: Hypoglycemia Simple Syrup (Simple Syrup 15 Ml) 30 ml FEEDTUBE PRN PRN PRN Reason: Hypoglycemia Simple Syrup (Simple Syrup 15 Ml) 15 ml FEEDTUBE PRN PRN PRN Reason: Hypoglycemia Simple Syrup (Simple Syrup 15 Ml) 30 ml FEEDTUBE PRN PRN PRN Reason: Hypoglycemia Sodium Bicarbonate (Sodium Bicarbonate 325 Mg Tab) 325 mg FEEDTUBE PRN PRN PRN Reason: For Clogged Feeding Tube Sodium Bicarbonate (Sodium Bicarbonate 325 Mg Tab) 325 mg FEEDTUBE PRN PRN PRN Reason: For Clogged Feeding Tube Sodium Chloride (Sodium Chloride 0.9% 10 Ml Flush Syringe) 10 ml IV BID PATSY Last Admin: 09/25/20 21:56 Dose: 10 ml Documented by: Sodium Chloride (Sodium Chloride 0.9% 10 Ml Flush Syringe) 10 ml IV PRN PRN PRN Reason: LINE FLUSH Last Admin: 09/24/20 18:21 Dose: 10 ml Documented by: Objective Vital Signs - 12hr 09/25/20 09/25/20 09/25/20 05:00 05:20 05:21 Temperature Pulse Rate 82 87 114 H Respiratory 19 Rate Blood Pressure 135/78 135/78 135/78 O2 Sat by Pulse 95 Oximetry 09/25/20 09/25/20 09/25/20 05:30 06:00 06:30 Temperature Pulse Rate 77 85 97 H Respiratory 17 19 16 Rate Blood Pressure 119/71 121/74 118/76 O2 Sat by Pulse 93 95 93 Oximetry 09/25/20 09/25/20 09/25/20 07:00 07:30 08:00 Temperature 102.3 F H Pulse Rate 97 H 99 H 104 H Respiratory 20 20 18 Rate Blood Pressure 117/75 119/76 127/83 O2 Sat by Pulse 94 92 93 Oximetry 09/25/20 09/25/20 09/25/20 08:30 08:35 09:00 Temperature Pulse Rate 89 101 H 93 H Respiratory 17 14 Rate Blood Pressure 133/77 133/77 123/75 O2 Sat by Pulse 93 93 92 Oximetry 09/25/20 09/25/20 09/25/20 09:30 09:46 10:00 Temperature Pulse Rate 99 H 100 H 97 H Respiratory 15 17 Rate Blood Pressure 122/74 122/74 124/74 O2 Sat by Pulse 92 92 Oximetry 09/25/20 09/25/20 09/25/20 10:30 11:59 12:00 Temperature 103 F H Pulse Rate 93 H 112 H 113 H Respiratory 17 25 H Rate Blood Pressure 106/69 137/93 137/93 O2 Sat by Pulse 92 Oximetry 09/25/20 09/25/20 09/25/20 12:10 12:30 12:44 Temperature Pulse Rate 108 H 113 H 110 H Respiratory 22 Rate Blood Pressure 137/93 136/88 136/88 O2 Sat by Pulse 97 95 Oximetry 09/25/20 09/25/20 09/25/20 15:27 16:00 16:38 Temperature 100.7 F H Pulse Rate 99 H 101 H Respiratory Rate Blood Pressure 118/76 111/66 O2 Sat by Pulse 95 Oximetry Constitutional: comatose Eyes: non-icteric ENT: other (intubated) Neck: supple Effort: normal Ascultation: Bilateral: clear Cardiovascular: other (sinus tachycardia) Gastrointestinal: normoactive bowel sounds, soft Integumentary: normal Extremities: no cyanosis, no edema, pink and warm Neurologic: other (comatose/unresponsive) Psychiatric: other (unable to assess) CBC and BMP: 09/25/20 07:50 09/25/20 19:45 ABG, PT/INR, D-dimer: ABG ABG pH 7.353 (7.320-7.450) 09/25/20 03:02 POC ABG pCO2 42.6 mmHg (32.0-48.0) 09/25/20 03:02 ABG pCO2 40.5 mm Hg 09/21/20 02:15 POC ABG pO2 67.4 mmHg (83-108) L 09/25/20 03:02 ABG pO2 244.1 mm Hg (80.0-90.0) H 09/21/20 02:15 POC ABG HCO3 23.1 09/25/20 03:02 ABG O2 Saturation 93.6 (0-100) 09/25/20 03:02 PT/INR, D-dimer PT 15.5 Sec. (12.2-14.9) H 09/22/20 08:26 INR 1.25 (0.87-1.13) H 09/22/20 08:26 Abnormal lab findings: Abnormal Labs 09/20/20 09/20/20 09/20/20 23:02 23:02 23:02 WBC RBC Hgb Hct MCV 96 H RDW 15.8 H Plt Count Lymph % (Auto) Jackson % (Auto) Lymph # (Auto) Jackson # (Auto) Seg Neutrophils % Seg Neuts % (Manual) 34.0 L Lymphocytes % (Manual) 57.0 H Seg Neutrophils # PT INR 1.14 H ABG pH POC ABG pCO2 POC ABG pO2 ABG pO2 ABG HCO3 ABG O2 Saturation ABG Base Excess ABG Oxyhemoglobin ABG Sodium ABG Potassium ABG Chloride ABG Glucose Sodium Potassium Chloride Carbon Dioxide 21 L BUN 26 H Creatinine 2.1 H Glucose 227 H POC Glucose Lactic Acid Calcium 10.3 H Phosphorus AST 59 H Total Creatine Kinase Troponin T HDL Cholesterol Arterial Blood Glucose Arterial Blood Ionized Calcium Urine WBC (Auto) Urine Creatinine 09/20/20 09/20/20 09/21/20 23:15 23:35 01:20 WBC RBC Hgb Hct MCV RDW Plt Count Lymph % (Auto) Jackson % (Auto) Lymph # (Auto) Jackson # (Auto) Seg Neutrophils % Seg Neuts % (Manual) Lymphocytes % (Manual) Seg Neutrophils # PT INR ABG pH POC ABG pCO2 POC ABG pO2 ABG pO2 ABG HCO3 ABG O2 Saturation ABG Base Excess ABG Oxyhemoglobin ABG Sodium ABG Potassium ABG Chloride ABG Glucose Sodium Potassium Chloride Carbon Dioxide BUN Creatinine Glucose POC Glucose 197 H Lactic Acid 8.70 H* Calcium Phosphorus AST Total Creatine Kinase Troponin T HDL Cholesterol Arterial Blood Glucose Arterial Blood Ionized Calcium Urine WBC (Auto) 47.0 H Urine Creatinine 09/21/20 09/21/20 09/21/20 02:01 02:15 04:25 WBC RBC Hgb Hct MCV RDW Plt Count Lymph % (Auto) Jackson % (Auto) Lymph # (Auto) Jackson # (Auto) Seg Neutrophils % Seg Neuts % (Manual) Lymphocytes % (Manual) Seg Neutrophils # PT INR ABG pH 7.258 L POC ABG pCO2 POC ABG pO2 ABG pO2 244.1 H ABG HCO3 17.7 L ABG O2 Saturation 99.4 H ABG Base Excess -8.8 L ABG Oxyhemoglobin ABG Sodium ABG Potassium ABG Chloride ABG Glucose Sodium Potassium Chloride Carbon Dioxide BUN Creatinine Glucose POC Glucose 65 L Lactic Acid Calcium Phosphorus AST Total Creatine Kinase Troponin T 0.865 H* D HDL Cholesterol 60 H Arterial Blood Glucose Arterial Blood Ionized Calcium Urine WBC (Auto) Urine Creatinine 09/21/20 09/21/20 09/21/20 04:34 04:34 07:03 WBC RBC Hgb 16.9 H D Hct 51.3 H D MCV RDW Plt Count Lymph % (Auto) Jackson % (Auto) Lymph # (Auto) Jackson # (Auto) Seg Neutrophils % Seg Neuts % (Manual) Lymphocytes % (Manual) Seg Neutrophils # PT INR ABG pH POC ABG pCO2 POC ABG pO2 ABG pO2 ABG HCO3 ABG O2 Saturation ABG Base Excess ABG Oxyhemoglobin ABG Sodium ABG Potassium ABG Chloride ABG Glucose Sodium Potassium Chloride Carbon Dioxide BUN Creatinine Glucose POC Glucose Lactic Acid 3.00 H* Calcium Phosphorus AST Total Creatine Kinase Troponin T 1.880 H* D HDL Cholesterol Arterial Blood Glucose Arterial Blood Ionized Calcium Urine WBC (Auto) Urine Creatinine 09/21/20 09/21/20 09/21/20 07:03 07:32 07:53 WBC 19.2 H RBC 5.31 H Hgb 16.0 H Hct 49.0 H MCV RDW 15.7 H Plt Count Lymph % (Auto) Jackson % (Auto) Lymph # (Auto) [place] # (Auto) Seg Neutrophils % Seg Neuts % (Manual) Lymphocytes % (Manual) Seg Neutrophils # PT 16.3 H INR 1.31 H ABG pH POC ABG pCO2 POC ABG pO2 ABG pO2 ABG HCO3 ABG O2 Saturation ABG Base Excess ABG Oxyhemoglobin ABG Sodium ABG Potassium ABG Chloride ABG Glucose Sodium Potassium Chloride Carbon Dioxide BUN Creatinine Glucose POC Glucose 60 L Lactic Acid Calcium Phosphorus AST Total Creatine Kinase Troponin T HDL Cholesterol Arterial Blood Glucose Arterial Blood Ionized Calcium Urine WBC (Auto) Urine Creatinine 09/21/20 09/21/20 09/21/20 07:53 09:30 10:08 WBC RBC Hgb Hct MCV RDW Plt Count Lymph % (Auto) Jackson % (Auto) Lymph # (Auto) Jackson # (Auto) Seg Neutrophils % Seg Neuts % (Manual) Lymphocytes % (Manual) Seg Neutrophils # PT 15.4 H INR 1.24 H ABG pH POC ABG pCO2 POC ABG pO2 ABG pO2 ABG HCO3 ABG O2 Saturation ABG Base Excess ABG Oxyhemoglobin ABG Sodium ABG Potassium ABG Chloride ABG Glucose Sodium 146 H Potassium 3.5 L Chloride 109.6 H Carbon Dioxide 20 L BUN 37 H Creatinine 2.8 H Glucose 127 H POC Glucose Lactic Acid 3.00 H* Calcium Phosphorus AST Total Creatine Kinase Troponin T HDL Cholesterol Arterial Blood Glucose Arterial Blood Ionized Calcium Urine WBC (Auto) Urine Creatinine 09/21/20 09/21/20 09/21/20 10:34 11:22 11:44 WBC RBC Hgb Hct MCV RDW Plt Count Lymph % (Auto) Jackson % (Auto) Lymph # (Auto) Jackson # (Auto) Seg Neutrophils % Seg Neuts % (Manual) Lymphocytes % (Manual) Seg Neutrophils # PT INR ABG pH POC ABG pCO2 25.9 L POC ABG pO2 196.9 H ABG pO2 ABG HCO3 ABG O2 Saturation ABG Base Excess ABG Oxyhemoglobin 98.4 H ABG Sodium ABG Potassium 3.3 L ABG Chloride 113.0 H ABG Glucose 130 H Sodium Potassium Chloride Carbon Dioxide BUN Creatinine Glucose POC Glucose 126 H 127 H Lactic Acid Calcium Phosphorus AST Total Creatine Kinase Troponin T HDL Cholesterol Arterial Blood Glucose 130 H Arterial Blood Ionized Calcium Urine WBC (Auto) Urine Creatinine 09/21/20 09/21/20 09/21/20 14:27 14:27 15:09 WBC RBC Hgb Hct MCV RDW Plt Count Lymph % (Auto) Jackson % (Auto) Lymph # (Auto) Jackson # (Auto) Seg Neutrophils % Seg Neuts % (Manual) Lymphocytes % (Manual) Seg Neutrophils # PT INR ABG pH POC ABG pCO2 POC ABG pO2 ABG pO2 ABG HCO3 ABG O2 Saturation ABG Base Excess ABG Oxyhemoglobin ABG Sodium ABG Potassium ABG Chloride ABG Glucose Sodium Potassium Chloride Carbon Dioxide BUN Creatinine Glucose POC Glucose 135 H Lactic Acid Calcium Phosphorus AST Total Creatine Kinase Troponin T HDL Cholesterol Arterial Blood Glucose Arterial Blood Ionized Calcium Urine WBC (Auto) 12.0 H Urine Creatinine 60.4 H 09/21/20 09/21/20 09/21/20 15:54 15:54 16:13 WBC RBC Hgb Hct MCV RDW Plt Count Lymph % (Auto) Jackson % (Auto) Lymph # (Auto) Jackson # (Auto) Seg Neutrophils % Seg Neuts % (Manual) Lymphocytes % (Manual) Seg Neutrophils # PT INR ABG pH POC ABG pCO2 POC ABG pO2 ABG pO2 ABG HCO3 ABG O2 Saturation ABG Base Excess ABG Oxyhemoglobin ABG Sodium ABG Potassium ABG Chloride ABG Glucose Sodium Potassium Chloride Carbon Dioxide BUN Creatinine Glucose POC Glucose 131 H Lactic Acid 3.60 H* Calcium Phosphorus AST Total Creatine Kinase 3606 H Troponin T HDL Cholesterol Arterial Blood Glucose Arterial Blood Ionized Calcium Urine WBC (Auto) Urine Creatinine 09/21/20 09/21/20 09/21/20 18:02 19:48 20:57 WBC RBC Hgb Hct MCV RDW Plt Count Lymph % (Auto) Jackson % (Auto) Lymph # (Auto) Jackson # (Auto) Seg Neutrophils % Seg Neuts % (Manual) Lymphocytes % (Manual) Seg Neutrophils # PT INR ABG pH POC ABG pCO2 POC ABG pO2 ABG pO2 ABG HCO3 ABG O2 Saturation ABG Base Excess ABG Oxyhemoglobin ABG Sodium ABG Potassium ABG Chloride ABG Glucose Sodium Potassium Chloride Carbon Dioxide BUN Creatinine Glucose POC Glucose 139 H 184 H 173 H Lactic Acid Calcium Phosphorus AST Total Creatine Kinase Troponin T HDL Cholesterol Arterial Blood Glucose Arterial Blood Ionized Calcium Urine WBC (Auto) Urine Creatinine 09/21/20 09/21/20 09/21/20 22:02 22:27 23:54 WBC RBC Hgb Hct MCV RDW Plt Count Lymph % (Auto) Jackson % (Auto) Lymph # (Auto) Jackson # (Auto) Seg Neutrophils % Seg Neuts % (Manual) Lymphocytes % (Manual) Seg Neutrophils # PT INR ABG pH POC ABG pCO2 POC ABG pO2 ABG pO2 ABG HCO3 ABG O2 Saturation ABG Base Excess ABG Oxyhemoglobin ABG Sodium ABG Potassium ABG Chloride ABG Glucose Sodium Potassium Chloride Carbon Dioxide BUN Creatinine Glucose POC Glucose 147 H 142 H 143 H Lactic Acid Calcium Phosphorus AST Total Creatine Kinase Troponin T HDL Cholesterol Arterial Blood Glucose Arterial Blood Ionized Calcium Urine WBC (Auto) Urine Creatinine 09/22/20 09/22/20 09/22/20 00:49 02:01 02:14 WBC RBC Hgb Hct MCV RDW Plt Count Lymph % (Auto) Jackson % (Auto) Lymph # (Auto) [place] # (Auto) Seg Neutrophils % Seg Neuts % (Manual) Lymphocytes % (Manual) Seg Neutrophils # PT INR ABG pH POC ABG pCO2 POC ABG pO2 ABG pO2 ABG HCO3 ABG O2 Saturation ABG Base Excess ABG Oxyhemoglobin ABG Sodium ABG Potassium ABG Chloride ABG Glucose Sodium Potassium Chloride Carbon Dioxide BUN Creatinine Glucose POC Glucose 154 H 154 H 149 H Lactic Acid Calcium Phosphorus AST Total Creatine Kinase Troponin T HDL Cholesterol Arterial Blood Glucose Arterial Blood Ionized Calcium Urine WBC (Auto) Urine Creatinine 09/22/20 09/22/20 09/22/20 02:57 03:21 03:58 WBC RBC Hgb Hct MCV RDW Plt Count Lymph % (Auto) Jackson % (Auto) Lymph # (Auto) Jackson # (Auto) Seg Neutrophils % Seg Neuts % (Manual) Lymphocytes % (Manual) Seg Neutrophils # PT INR ABG pH 7.496 H POC ABG pCO2 25.0 L POC ABG pO2 73.8 L ABG pO2 ABG HCO3 ABG O2 Saturation ABG Base Excess ABG Oxyhemoglobin ABG Sodium ABG Potassium ABG Chloride 115.0 H ABG Glucose 154 H Sodium Potassium Chloride Carbon Dioxide BUN Creatinine Glucose POC Glucose 166 H 158 H Lactic Acid Calcium Phosphorus AST Total Creatine Kinase Troponin T HDL Cholesterol Arterial Blood Glucose 154 H Arterial Blood Ionized Calcium 4.5 L Urine WBC (Auto) Urine Creatinine 09/22/20 09/22/20 09/22/20 05:06 05:56 06:50 WBC RBC Hgb Hct MCV RDW Plt Count Lymph % (Auto) Jackson % (Auto) Lymph # (Auto) [place] # (Auto) Seg Neutrophils % Seg Neuts % (Manual) Lymphocytes % (Manual) Seg Neutrophils # PT INR ABG pH POC ABG pCO2 POC ABG pO2 ABG pO2 ABG HCO3 ABG O2 Saturation ABG Base Excess ABG Oxyhemoglobin ABG Sodium ABG Potassium ABG Chloride ABG Glucose Sodium Potassium Chloride Carbon Dioxide BUN Creatinine Glucose POC Glucose 147 H 145 H 137 H Lactic Acid Calcium Phosphorus AST Total Creatine Kinase Troponin T HDL Cholesterol Arterial Blood Glucose Arterial Blood Ionized Calcium Urine WBC (Auto) Urine Creatinine 09/22/20 09/22/20 09/22/20 08:02 08:26 08:26 WBC 15.2 H RBC Hgb Hct MCV RDW 16.0 H Plt Count Lymph % (Auto) 7.6 L Jackson % (Auto) Lymph # (Auto) Jackson # (Auto) 1.0 H Seg Neutrophils % 86.0 H Seg Neuts % (Manual) Lymphocytes % (Manual) Seg Neutrophils # 13.0 H PT 15.5 H INR 1.25 H ABG pH POC ABG pCO2 POC ABG pO2 ABG pO2 ABG HCO3 ABG O2 Saturation ABG Base Excess ABG Oxyhemoglobin ABG Sodium ABG Potassium ABG Chloride ABG Glucose Sodium Potassium Chloride Carbon Dioxide BUN Creatinine Glucose POC Glucose 149 H Lactic Acid Calcium Phosphorus AST Total Creatine Kinase Troponin T HDL Cholesterol Arterial Blood Glucose Arterial Blood Ionized Calcium Urine WBC (Auto) Urine Creatinine 09/22/20 09/22/20 09/22/20 08:26 12:04 15:55 WBC RBC Hgb Hct MCV RDW Plt Count Lymph % (Auto) Jackson % (Auto) Lymph # (Auto) [place] # (Auto) Seg Neutrophils % Seg Neuts % (Manual) Lymphocytes % (Manual) Seg Neutrophils # PT INR ABG pH POC ABG pCO2 POC ABG pO2 ABG pO2 ABG HCO3 ABG O2 Saturation ABG Base Excess ABG Oxyhemoglobin ABG Sodium ABG Potassium ABG Chloride ABG Glucose Sodium 146 H Potassium 3.5 L Chloride 114.0 H Carbon Dioxide 18 L BUN 46 H Creatinine 3.7 H Glucose 134 H POC Glucose 138 H 123 H Lactic Acid Calcium 7.7 L Phosphorus AST Total Creatine Kinase Troponin T HDL Cholesterol Arterial Blood Glucose Arterial Blood Ionized Calcium Urine WBC (Auto) Urine Creatinine 09/22/20 09/22/20 09/23/20 21:57 23:41 03:30 WBC 14.2 H RBC Hgb Hct MCV RDW 16.5 H Plt Count 126 L Lymph % (Auto) 8.2 L Jackson % (Auto) 7.8 H Lymph # (Auto) Jackson # (Auto) 1.1 H Seg Neutrophils % 83.8 H Seg Neuts % (Manual) Lymphocytes % (Manual) Seg Neutrophils # 11.9 H PT INR ABG pH POC ABG pCO2 POC ABG pO2 ABG pO2 ABG HCO3 ABG O2 Saturation ABG Base Excess ABG Oxyhemoglobin ABG Sodium ABG Potassium ABG Chloride ABG Glucose Sodium Potassium Chloride Carbon Dioxide BUN Creatinine Glucose POC Glucose 124 H 130 H Lactic Acid Calcium Phosphorus AST Total Creatine Kinase Troponin T HDL Cholesterol Arterial Blood Glucose Arterial Blood Ionized Calcium Urine WBC (Auto) Urine Creatinine 09/23/20 09/23/20 09/23/20 03:30 03:45 12:33 WBC RBC Hgb Hct MCV RDW Plt Count Lymph % (Auto) Jackson % (Auto) Lymph # (Auto) Jackson # (Auto) Seg Neutrophils % Seg Neuts % (Manual) Lymphocytes % (Manual) Seg Neutrophils # PT INR ABG pH POC ABG pCO2 POC ABG pO2 ABG pO2 ABG HCO3 ABG O2 Saturation ABG Base Excess ABG Oxyhemoglobin ABG Sodium ABG Potassium ABG Chloride ABG Glucose Sodium Potassium Chloride 110.4 H Carbon Dioxide 19 L BUN 56 H Creatinine 4.7 H Glucose 148 H POC Glucose 132 H 139 H Lactic Acid Calcium 7.4 L Phosphorus 5.80 H D AST Total Creatine Kinase Troponin T HDL Cholesterol Arterial Blood Glucose Arterial Blood Ionized Calcium Urine WBC (Auto) Urine Creatinine 09/23/20 09/23/20 09/24/20 17:54 23:18 02:57 WBC RBC Hgb Hct MCV RDW Plt Count Lymph % (Auto) Jackson % (Auto) Lymph # (Auto) Jackson # (Auto) Seg Neutrophils % Seg Neuts % (Manual) Lymphocytes % (Manual) Seg Neutrophils # PT INR ABG pH POC ABG pCO2 30.0 L POC ABG pO2 75.1 L ABG pO2 ABG HCO3 ABG O2 Saturation ABG Base Excess ABG Oxyhemoglobin ABG Sodium 149.5 H ABG Potassium ABG Chloride 119.0 H ABG Glucose 144 H Sodium Potassium Chloride Carbon Dioxide BUN Creatinine Glucose POC Glucose 115 H 139 H Lactic Acid Calcium Phosphorus AST Total Creatine Kinase Troponin T HDL Cholesterol Arterial Blood Glucose 144 H Arterial Blood Ionized Calcium Urine WBC (Auto) Urine Creatinine 09/24/20 09/24/20 09/24/20 04:20 04:30 05:10 WBC 14.3 H RBC Hgb Hct MCV RDW 16.6 H Plt Count 135 L Lymph % (Auto) 5.9 L Jackson % (Auto) Lymph # (Auto) 0.8 L Jackson # (Auto) 0.9 H Seg Neutrophils % 87.5 H Seg Neuts % (Manual) Lymphocytes % (Manual) Seg Neutrophils # 12.5 H PT INR ABG pH POC ABG pCO2 POC ABG pO2 ABG pO2 ABG HCO3 ABG O2 Saturation ABG Base Excess ABG Oxyhemoglobin ABG Sodium ABG Potassium ABG Chloride ABG Glucose Sodium 147 H Potassium Chloride 114.4 H Carbon Dioxide 19 L BUN 50 H Creatinine 3.2 H Glucose 142 H POC Glucose 137 H Lactic Acid Calcium 8.3 L Phosphorus AST Total Creatine Kinase Troponin T HDL Cholesterol Arterial Blood Glucose Arterial Blood Ionized Calcium Urine WBC (Auto) Urine Creatinine 09/24/20 09/24/20 09/24/20 12:03 17:39 23:15 WBC RBC Hgb Hct MCV RDW Plt Count Lymph % (Auto) Jackson % (Auto) Lymph # (Auto) Jackson # (Auto) Seg Neutrophils % Seg Neuts % (Manual) Lymphocytes % (Manual) Seg Neutrophils # PT INR ABG pH POC ABG pCO2 POC ABG pO2 ABG pO2 ABG HCO3 ABG O2 Saturation ABG Base Excess ABG Oxyhemoglobin ABG Sodium ABG Potassium ABG Chloride ABG Glucose Sodium Potassium Chloride Carbon Dioxide BUN Creatinine Glucose POC Glucose 120 H 155 H 109 H Lactic Acid Calcium Phosphorus AST Total Creatine Kinase Troponin T HDL Cholesterol Arterial Blood Glucose Arterial Blood Ionized Calcium Urine WBC (Auto) Urine Creatinine 09/25/20 09/25/20 09/25/20 03:02 05:16 07:50 WBC 14.0 H RBC Hgb Hct MCV RDW 16.5 H Plt Count Lymph % (Auto) 6.7 L Jackson % (Auto) 9.1 H Lymph # (Auto) 0.9 L [place] # (Auto) 1.3 H Seg Neutrophils % 84.1 H Seg Neuts % (Manual) Lymphocytes % (Manual) Seg Neutrophils # 11.8 H PT INR ABG pH POC ABG pCO2 POC ABG pO2 67.4 L ABG pO2 ABG HCO3 ABG O2 Saturation ABG Base Excess ABG Oxyhemoglobin 92.3 L ABG Sodium 157.3 H ABG Potassium ABG Chloride 125.0 H ABG Glucose 147 H Sodium Potassium Chloride Carbon Dioxide BUN Creatinine Glucose POC Glucose 126 H Lactic Acid Calcium Phosphorus AST Total Creatine Kinase Troponin T HDL Cholesterol Arterial Blood Glucose 147 H Arterial Blood Ionized Calcium Urine WBC (Auto) Urine Creatinine 09/25/20 09/25/20 09/25/20 07:50 11:56 14:50 WBC RBC Hgb Hct MCV RDW Plt Count Lymph % (Auto) Jackson % (Auto) Lymph # (Auto) [place] # (Auto) Seg Neutrophils % Seg Neuts % (Manual) Lymphocytes % (Manual) Seg Neutrophils # PT INR ABG pH POC ABG pCO2 POC ABG pO2 ABG pO2 ABG HCO3 ABG O2 Saturation ABG Base Excess ABG Oxyhemoglobin ABG Sodium ABG Potassium ABG Chloride ABG Glucose Sodium 160 H D 160 H Potassium Chloride 124.2 H Carbon Dioxide BUN 54 H Creatinine 2.8 H Glucose 124 H POC Glucose 109 H Lactic Acid Calcium 8.3 L Phosphorus AST Total Creatine Kinase Troponin T HDL Cholesterol Arterial Blood Glucose Arterial Blood Ionized Calcium Urine WBC (Auto) Urine Creatinine Chest x-ray: report reviewed, image reviewed
--- NOTE | 2020-09-25 17:21 | Consultation ---
History of Present Illness Consult date: 09/25/20 Requesting physician: CHERIE WARE Reason for Consult: Anoxic Brain Injury Chief complaint: Altered mental status History of present illness: Yoshi Avelar is a 50 y/o Male w/ history of HTN, [facility] ago after reported cardiac arrest approximately 45 minutes prior to arrival. He was intubated, sedated and resuscitated upon arrival. He was transferred to the ICU for further care. His initial CT head on 09/21 was compromised by motion artifact. The follow up CT scan on 09/23/2020 was notable for loss of de la fuente white differentiation and small ventricles concerning for cerebral edema. MRI earlier today revealed diffuse cortical diffusion restriction consistent with diffuse an oxia. Per report, Mr. Avelar has been non-responsive since arrival. I was consulted for further evaluation. Past History Past Medical History: heart failure, hypertension Past Surgical History: Other (Unknown) Social history: other (Unknown) Family history: other (Unknown) Medications and Allergies Allergies Allergy/AdvReac Type Severity Reaction Status Date / Time No Known Allergies Allergy Unverified 09/20/20 23:08 Home Medications Medication Instructions Recorded Confirmed Last Taken Type Furosemide [Lasix] 40 mg PO QDAY 09/21/20 09/21/20 Unknown History Simvastatin 20 mg PO QDAY 09/21/20 09/21/20 Unknown History amLODIPine [Norvasc] 5 mg PO DAILY 09/21/20 09/21/20 Unknown History carvediloL [Coreg] 25 mg PO BID 09/21/20 09/21/20 Unknown History lisinopriL [Zestril TAB] 40 mg PO QDAY 09/21/20 09/21/20 Unknown History Active Meds: Active Medications Acetaminophen (Acetaminophen 325 Mg/10.15 Ml Oral Liqd Unit Dose) 650 mg FEEDTUBE Q6H PRN PRN Reason: Pain, Mild (1-3) Last Admin: 09/25/20 12:43 Dose: 650 mg Documented by: Lipase/Protease/Amylase (Lipase 10,500/Protease 25,000/Amylase 43,750 (Units) Dr Greer) 1 each FEEDTUBE PRN PRN PRN Reason: For Clogged Feeding Tube Lipase/Protease/Amylase (Lipase 10,500/Protease 25,000/Amylase 43,750 (Units) Dr Greer) 1 each FEEDTUBE PRN PRN PRN Reason: For Clogged Feeding Tube Aspirin (Aspirin 325 Mg Tab) 325 mg PO QDAY [facility] Last Admin: 09/25/20 09:46 Dose: 325 mg Documented by: Atorvastatin Calcium (Atorvastatin 40 Mg Tab) 40 mg PO QHS [facility] Last Admin: 09/24/20 21:25 Dose: 40 mg Documented by: Famotidine (Famotidine 20 Mg Tab) 20 mg PO DAILY [facility] Last Admin: 09/25/20 09:46 Dose: 20 mg Documented by: Heparin Sodium (Porcine) (Heparin 5,000 Unit/1 Ml Vial) 5,000 unit SUB-Q Q12HR [facility] Last Admin: 09/25/20 09:46 Dose: 5,000 unit Documented by: Hydralazine HCl (Hydralazine 20 Mg/1 Ml Inj) 5 mg IV Q4HR [facility] Last Admin: 09/25/20 15:27 Dose: 5 mg Documented by: Hydrophilic Ointment (Lip Therapy Vaseline) 1 applic TP Q2HR PRN PRN Reason: Dry Lips Norepinephrine (Levophed Drip 4 Mg/Ns 250 Ml) 4 mg in 250 mls @ 7.5 mls/hr IV TITR [facility]; Protocol Fentanyl Citrate (Fentanyl Drip Premix) 2,000 mcg in 100 mls @ 5.105 mls/hr IV TITR [facility]; Protocol Last Titration: 09/25/20 07:50 Dose: 0 mcg/kg/hr, 0 mls/hr Documented by: Metoprolol Tartrate (Metoprolol Tartrate 5 Mg/5 Ml Inj) 5 mg IV Q6HR [facility] Last Admin: 09/25/20 12:44 Dose: 5 mg Documented by: Multi-Ingred Cream/Lotion/Oil/Oint (Mineral Oil/Petrolatum, White Ophth Oint 3.5 Gm) 1 applic OU Q4HR PRN PRN Reason: Dry Eye(s) Ondansetron HCl (Ondansetron 4 Mg/2 Ml Inj) 4 mg IV Q8H PRN PRN Reason: Nausea And Vomiting Simple Syrup (Simple Syrup 15 Ml) 15 ml FEEDTUBE PRN PRN PRN Reason: Hypoglycemia Simple Syrup (Simple Syrup 15 Ml) 30 ml FEEDTUBE PRN PRN PRN Reason: Hypoglycemia Simple Syrup (Simple Syrup 15 Ml) 15 ml FEEDTUBE PRN PRN PRN Reason: Hypoglycemia Simple Syrup (Simple Syrup 15 Ml) 30 ml FEEDTUBE PRN PRN PRN Reason: Hypoglycemia Sodium Bicarbonate (Sodium Bicarbonate 325 Mg Tab) 325 mg FEEDTUBE PRN PRN PRN Reason: For Clogged Feeding Tube Sodium Bicarbonate (Sodium Bicarbonate 325 Mg Tab) 325 mg FEEDTUBE PRN PRN PRN Reason: For Clogged Feeding Tube Sodium Chloride (Sodium Chloride 0.9% 10 Ml Flush Syringe) 10 ml IV BID PATSY Last Admin: 09/25/20 09:47 Dose: 10 ml Documented by: Sodium Chloride (Sodium Chloride 0.9% 10 Ml Flush Syringe) 10 ml IV PRN PRN PRN Reason: LINE FLUSH Last Admin: 09/24/20 18:21 Dose: 10 ml Documented by: Review of Systems All systems: negative (what is indicated in HPI) Physical Examination - Vital Signs Vital Signs: Vital Signs Pulse Resp BP Pulse Ox 111 H 31 H 118/97 100 09/20/20 22:50 09/20/20 22:50 09/20/20 22:50 09/20/20 22:50 - Physical Exam Narrative exam: seen and examined lying in bed intubated, no sedation eyes open spontaneously does not regard examiner does not blink to threat pupils reactive, 6 to 4 mm no corneal reflex b/l no cough or gag no extremity response to deep central or peripheral stim Results - Laboratory Findings CBC and BMP: 09/25/20 07:50 09/25/20 14:50 Abnormal Lab Findings: Abnormal Labs 09/20/20 09/20/20 09/20/20 23:02 23:02 23:02 WBC RBC Hgb Hct MCV 96 H RDW 15.8 H Plt Count Lymph % (Auto) Rowan % (Auto) Lymph # (Auto) Rowan # (Auto) Seg Neutrophils % Seg Neuts % (Manual) 34.0 L Lymphocytes % (Manual) 57.0 H Seg Neutrophils # PT INR 1.14 H ABG pH POC ABG pCO2 POC ABG pO2 ABG pO2 ABG HCO3 ABG O2 Saturation ABG Base Excess ABG Oxyhemoglobin ABG Sodium ABG Potassium ABG Chloride ABG Glucose Sodium Potassium Chloride Carbon Dioxide 21 L BUN 26 H Creatinine 2.1 H Glucose 227 H POC Glucose Lactic Acid Calcium 10.3 H Phosphorus AST 59 H Total Creatine Kinase Troponin T HDL Cholesterol Arterial Blood Glucose Arterial Blood Ionized Calcium Urine WBC (Auto) Urine Creatinine 09/20/20 09/20/20 09/21/20 23:15 23:35 01:20 WBC RBC Hgb Hct MCV RDW Plt Count Lymph % (Auto) Rowan % (Auto) Lymph # (Auto) Rowan # (Auto) Seg Neutrophils % Seg Neuts % (Manual) Lymphocytes % (Manual) Seg Neutrophils # PT INR ABG pH POC ABG pCO2 POC ABG pO2 ABG pO2 ABG HCO3 ABG O2 Saturation ABG Base Excess ABG Oxyhemoglobin ABG Sodium ABG Potassium ABG Chloride ABG Glucose Sodium Potassium Chloride Carbon Dioxide BUN Creatinine Glucose POC Glucose 197 H Lactic Acid 8.70 H* Calcium Phosphorus AST Total Creatine Kinase Troponin T HDL Cholesterol Arterial Blood Glucose Arterial Blood Ionized Calcium Urine WBC (Auto) 47.0 H Urine Creatinine 09/21/20 09/21/20 09/21/20 02:01 02:15 04:25 WBC RBC Hgb Hct MCV RDW Plt Count Lymph % (Auto) Rowan % (Auto) Lymph # (Auto) Rowan # (Auto) Seg Neutrophils % Seg Neuts % (Manual) Lymphocytes % (Manual) Seg Neutrophils # PT INR ABG pH 7.258 L POC ABG pCO2 POC ABG pO2 ABG pO2 244.1 H ABG HCO3 17.7 L ABG O2 Saturation 99.4 H ABG Base Excess -8.8 L ABG Oxyhemoglobin ABG Sodium ABG Potassium ABG Chloride ABG Glucose Sodium Potassium Chloride Carbon Dioxide BUN Creatinine Glucose POC Glucose 65 L Lactic Acid Calcium Phosphorus AST Total Creatine Kinase Troponin T 0.865 H* D HDL Cholesterol 60 H Arterial Blood Glucose Arterial Blood Ionized Calcium Urine WBC (Auto) Urine Creatinine 09/21/20 09/21/20 09/21/20 04:34 04:34 07:03 WBC RBC Hgb 16.9 H D Hct 51.3 H D MCV RDW Plt Count Lymph % (Auto) Rowan % (Auto) Lymph # (Auto) Rowan # (Auto) Seg Neutrophils % Seg Neuts % (Manual) Lymphocytes % (Manual) Seg Neutrophils # PT INR ABG pH POC ABG pCO2 POC ABG pO2 ABG pO2 ABG HCO3 ABG O2 Saturation ABG Base Excess ABG Oxyhemoglobin ABG Sodium ABG Potassium ABG Chloride ABG Glucose Sodium Potassium Chloride Carbon Dioxide BUN Creatinine Glucose POC Glucose Lactic Acid 3.00 H* Calcium Phosphorus AST Total Creatine Kinase Troponin T 1.880 H* D HDL Cholesterol Arterial Blood Glucose Arterial Blood Ionized Calcium Urine WBC (Auto) Urine Creatinine 09/21/20 09/21/20 09/21/20 07:03 07:32 07:53 WBC 19.2 H RBC 5.31 H Hgb 16.0 H Hct 49.0 H MCV RDW 15.7 H Plt Count Lymph % (Auto) Rowan % (Auto) Lymph # (Auto) Rowan # (Auto) Seg Neutrophils % Seg Neuts % (Manual) Lymphocytes % (Manual) Seg Neutrophils # PT 16.3 H INR 1.31 H ABG pH POC ABG pCO2 POC ABG pO2 ABG pO2 ABG HCO3 ABG O2 Saturation ABG Base Excess ABG Oxyhemoglobin ABG Sodium ABG Potassium ABG Chloride ABG Glucose Sodium Potassium Chloride Carbon Dioxide BUN Creatinine Glucose POC Glucose 60 L Lactic Acid Calcium Phosphorus AST Total Creatine Kinase Troponin T HDL Cholesterol Arterial Blood Glucose Arterial Blood Ionized Calcium Urine WBC (Auto) Urine Creatinine 09/21/20 09/21/20 09/21/20 07:53 09:30 10:08 WBC RBC Hgb Hct MCV RDW Plt Count Lymph % (Auto) Rowan % (Auto) Lymph # (Auto) [place]an # (Auto) Seg Neutrophils % Seg Neuts % (Manual) Lymphocytes % (Manual) Seg Neutrophils # PT 15.4 H INR 1.24 H ABG pH POC ABG pCO2 POC ABG pO2 ABG pO2 ABG HCO3 ABG O2 Saturation ABG Base Excess ABG Oxyhemoglobin ABG Sodium ABG Potassium ABG Chloride ABG Glucose Sodium 146 H Potassium 3.5 L Chloride 109.6 H Carbon Dioxide 20 L BUN 37 H Creatinine 2.8 H Glucose 127 H POC Glucose Lactic Acid 3.00 H* Calcium Phosphorus AST Total Creatine Kinase Troponin T HDL Cholesterol Arterial Blood Glucose Arterial Blood Ionized Calcium Urine WBC (Auto) Urine Creatinine 09/21/20 09/21/20 09/21/20 10:34 11:22 11:44 WBC RBC Hgb Hct MCV RDW Plt Count Lymph % (Auto) Rowan % (Auto) Lymph # (Auto) Rowan # (Auto) Seg Neutrophils % Seg Neuts % (Manual) Lymphocytes % (Manual) Seg Neutrophils # PT INR ABG pH POC ABG pCO2 25.9 L POC ABG pO2 196.9 H ABG pO2 ABG HCO3 ABG O2 Saturation ABG Base Excess ABG Oxyhemoglobin 98.4 H ABG Sodium ABG Potassium 3.3 L ABG Chloride 113.0 H ABG Glucose 130 H Sodium Potassium Chloride Carbon Dioxide BUN Creatinine Glucose POC Glucose 126 H 127 H Lactic Acid Calcium Phosphorus AST Total Creatine Kinase Troponin T HDL Cholesterol Arterial Blood Glucose 130 H Arterial Blood Ionized Calcium Urine WBC (Auto) Urine Creatinine 09/21/20 09/21/20 09/21/20 14:27 14:27 15:09 WBC RBC Hgb Hct MCV RDW Plt Count Lymph % (Auto) Rowan % (Auto) Lymph # (Auto) [place]an # (Auto) Seg Neutrophils % Seg Neuts % (Manual) Lymphocytes % (Manual) Seg Neutrophils # PT INR ABG pH POC ABG pCO2 POC ABG pO2 ABG pO2 ABG HCO3 ABG O2 Saturation ABG Base Excess ABG Oxyhemoglobin ABG Sodium ABG Potassium ABG Chloride ABG Glucose Sodium Potassium Chloride Carbon Dioxide BUN Creatinine Glucose POC Glucose 135 H Lactic Acid Calcium Phosphorus AST Total Creatine Kinase Troponin T HDL Cholesterol Arterial Blood Glucose Arterial Blood Ionized Calcium Urine WBC (Auto) 12.0 H Urine Creatinine 60.4 H 09/21/20 09/21/20 09/21/20 15:54 15:54 16:13 WBC RBC Hgb Hct MCV RDW Plt Count Lymph % (Auto) Rowan % (Auto) Lymph # (Auto) [place]an # (Auto) Seg Neutrophils % Seg Neuts % (Manual) Lymphocytes % (Manual) Seg Neutrophils # PT INR ABG pH POC ABG pCO2 POC ABG pO2 ABG pO2 ABG HCO3 ABG O2 Saturation ABG Base Excess ABG Oxyhemoglobin ABG Sodium ABG Potassium ABG Chloride ABG Glucose Sodium Potassium Chloride Carbon Dioxide BUN Creatinine Glucose POC Glucose 131 H Lactic Acid 3.60 H* Calcium Phosphorus AST Total Creatine Kinase 3606 H Troponin T HDL Cholesterol Arterial Blood Glucose Arterial Blood Ionized Calcium Urine WBC (Auto) Urine Creatinine 09/21/20 09/21/20 09/21/20 18:02 19:48 20:57 WBC RBC Hgb Hct MCV RDW Plt Count Lymph % (Auto) Rowan % (Auto) Lymph # (Auto) [place]an # (Auto) Seg Neutrophils % Seg Neuts % (Manual) Lymphocytes % (Manual) Seg Neutrophils # PT INR ABG pH POC ABG pCO2 POC ABG pO2 ABG pO2 ABG HCO3 ABG O2 Saturation ABG Base Excess ABG Oxyhemoglobin ABG Sodium ABG Potassium ABG Chloride ABG Glucose Sodium Potassium Chloride Carbon Dioxide BUN Creatinine Glucose POC Glucose 139 H 184 H 173 H Lactic Acid Calcium Phosphorus AST Total Creatine Kinase Troponin T HDL Cholesterol Arterial Blood Glucose Arterial Blood Ionized Calcium Urine WBC (Auto) Urine Creatinine 09/21/20 09/21/20 09/21/20 22:02 22:27 23:54 WBC RBC Hgb Hct MCV RDW Plt Count Lymph % (Auto) Rowan % (Auto) Lymph # (Auto) [place]an # (Auto) Seg Neutrophils % Seg Neuts % (Manual) Lymphocytes % (Manual) Seg Neutrophils # PT INR ABG pH POC ABG pCO2 POC ABG pO2 ABG pO2 ABG HCO3 ABG O2 Saturation ABG Base Excess ABG Oxyhemoglobin ABG Sodium ABG Potassium ABG Chloride ABG Glucose Sodium Potassium Chloride Carbon Dioxide BUN Creatinine Glucose POC Glucose 147 H 142 H 143 H Lactic Acid Calcium Phosphorus AST Total Creatine Kinase Troponin T HDL Cholesterol Arterial Blood Glucose Arterial Blood Ionized Calcium Urine WBC (Auto) Urine Creatinine 09/22/20 09/22/20 09/22/20 00:49 02:01 02:14 WBC RBC Hgb Hct MCV RDW Plt Count Lymph % (Auto) Rowan % (Auto) Lymph # (Auto) [place]an # (Auto) Seg Neutrophils % Seg Neuts % (Manual) Lymphocytes % (Manual) Seg Neutrophils # PT INR ABG pH POC ABG pCO2 POC ABG pO2 ABG pO2 ABG HCO3 ABG O2 Saturation ABG Base Excess ABG Oxyhemoglobin ABG Sodium ABG Potassium ABG Chloride ABG Glucose Sodium Potassium Chloride Carbon Dioxide BUN Creatinine Glucose POC Glucose 154 H 154 H 149 H Lactic Acid Calcium Phosphorus AST Total Creatine Kinase Troponin T HDL Cholesterol Arterial Blood Glucose Arterial Blood Ionized Calcium Urine WBC (Auto) Urine Creatinine 09/22/20 09/22/20 09/22/20 02:57 03:21 03:58 WBC RBC Hgb Hct MCV RDW Plt Count Lymph % (Auto) Rowan % (Auto) Lymph # (Auto) [place]an # (Auto) Seg Neutrophils % Seg Neuts % (Manual) Lymphocytes % (Manual) Seg Neutrophils # PT INR ABG pH 7.496 H POC ABG pCO2 25.0 L POC ABG pO2 73.8 L ABG pO2 ABG HCO3 ABG O2 Saturation ABG Base Excess ABG Oxyhemoglobin ABG Sodium ABG Potassium ABG Chloride 115.0 H ABG Glucose 154 H Sodium Potassium Chloride Carbon Dioxide BUN Creatinine Glucose POC Glucose 166 H 158 H Lactic Acid Calcium Phosphorus AST Total Creatine Kinase Troponin T HDL Cholesterol Arterial Blood Glucose 154 H Arterial Blood Ionized Calcium 4.5 L Urine WBC (Auto) Urine Creatinine 09/22/20 09/22/20 09/22/20 05:06 05:56 06:50 WBC RBC Hgb Hct MCV RDW Plt Count Lymph % (Auto) Rowan % (Auto) Lymph # (Auto) [place] # (Auto) Seg Neutrophils % Seg Neuts % (Manual) Lymphocytes % (Manual) Seg Neutrophils # PT INR ABG pH POC ABG pCO2 POC ABG pO2 ABG pO2 ABG HCO3 ABG O2 Saturation ABG Base Excess ABG Oxyhemoglobin ABG Sodium ABG Potassium ABG Chloride ABG Glucose Sodium Potassium Chloride Carbon Dioxide BUN Creatinine Glucose POC Glucose 147 H 145 H 137 H Lactic Acid Calcium Phosphorus AST Total Creatine Kinase Troponin T HDL Cholesterol Arterial Blood Glucose Arterial Blood Ionized Calcium Urine WBC (Auto) Urine Creatinine 09/22/20 09/22/20 09/22/20 08:02 08:26 08:26 WBC 15.2 H RBC Hgb Hct MCV RDW 16.0 H Plt Count Lymph % (Auto) 7.6 L Rowan % (Auto) Lymph # (Auto) [place]an # (Auto) 1.0 H Seg Neutrophils % 86.0 H Seg Neuts % (Manual) Lymphocytes % (Manual) Seg Neutrophils # 13.0 H PT 15.5 H INR 1.25 H ABG pH POC ABG pCO2 POC ABG pO2 ABG pO2 ABG HCO3 ABG O2 Saturation ABG Base Excess ABG Oxyhemoglobin ABG Sodium ABG Potassium ABG Chloride ABG Glucose Sodium Potassium Chloride Carbon Dioxide BUN Creatinine Glucose POC Glucose 149 H Lactic Acid Calcium Phosphorus AST Total Creatine Kinase Troponin T HDL Cholesterol Arterial Blood Glucose Arterial Blood Ionized Calcium Urine WBC (Auto) Urine Creatinine 09/22/20 09/22/20 09/22/20 08:26 12:04 15:55 WBC RBC Hgb Hct MCV RDW Plt Count Lymph % (Auto) Rowan % (Auto) Lymph # (Auto) [place]an # (Auto) Seg Neutrophils % Seg Neuts % (Manual) Lymphocytes % (Manual) Seg Neutrophils # PT INR ABG pH POC ABG pCO2 POC ABG pO2 ABG pO2 ABG HCO3 ABG O2 Saturation ABG Base Excess ABG Oxyhemoglobin ABG Sodium ABG Potassium ABG Chloride ABG Glucose Sodium 146 H Potassium 3.5 L Chloride 114.0 H Carbon Dioxide 18 L BUN 46 H Creatinine 3.7 H Glucose 134 H POC Glucose 138 H 123 H Lactic Acid Calcium 7.7 L Phosphorus AST Total Creatine Kinase Troponin T HDL Cholesterol Arterial Blood Glucose Arterial Blood Ionized Calcium Urine WBC (Auto) Urine Creatinine 09/22/20 09/22/20 09/23/20 21:57 23:41 03:30 WBC 14.2 H RBC Hgb Hct MCV RDW 16.5 H Plt Count 126 L Lymph % (Auto) 8.2 L Rowan % (Auto) 7.8 H Lymph # (Auto) [place]an # (Auto) 1.1 H Seg Neutrophils % 83.8 H Seg Neuts % (Manual) Lymphocytes % (Manual) Seg Neutrophils # 11.9 H PT INR ABG pH POC ABG pCO2 POC ABG pO2 ABG pO2 ABG HCO3 ABG O2 Saturation ABG Base Excess ABG Oxyhemoglobin ABG Sodium ABG Potassium ABG Chloride ABG Glucose Sodium Potassium Chloride Carbon Dioxide BUN Creatinine Glucose POC Glucose 124 H 130 H Lactic Acid Calcium Phosphorus AST Total Creatine Kinase Troponin T HDL Cholesterol Arterial Blood Glucose Arterial Blood Ionized Calcium Urine WBC (Auto) Urine Creatinine 09/23/20 09/23/20 09/23/20 03:30 03:45 12:33 WBC RBC Hgb Hct MCV RDW Plt Count Lymph % (Auto) Rowan % (Auto) Lymph # (Auto) [place] # (Auto) Seg Neutrophils % Seg Neuts % (Manual) Lymphocytes % (Manual) Seg Neutrophils # PT INR ABG pH POC ABG pCO2 POC ABG pO2 ABG pO2 ABG HCO3 ABG O2 Saturation ABG Base Excess ABG Oxyhemoglobin ABG Sodium ABG Potassium ABG Chloride ABG Glucose Sodium Potassium Chloride 110.4 H Carbon Dioxide 19 L BUN 56 H Creatinine 4.7 H Glucose 148 H POC Glucose 132 H 139 H Lactic Acid Calcium 7.4 L Phosphorus 5.80 H D AST Total Creatine Kinase Troponin T HDL Cholesterol Arterial Blood Glucose Arterial Blood Ionized Calcium Urine WBC (Auto) Urine Creatinine 09/23/20 09/23/20 09/24/20 17:54 23:18 02:57 WBC RBC Hgb Hct MCV RDW Plt Count Lymph % (Auto) Rowan % (Auto) Lymph # (Auto) [place]an # (Auto) Seg Neutrophils % Seg Neuts % (Manual) Lymphocytes % (Manual) Seg Neutrophils # PT INR ABG pH POC ABG pCO2 30.0 L POC ABG pO2 75.1 L ABG pO2 ABG HCO3 ABG O2 Saturation ABG Base Excess ABG Oxyhemoglobin ABG Sodium 149.5 H ABG Potassium ABG Chloride 119.0 H ABG Glucose 144 H Sodium Potassium Chloride Carbon Dioxide BUN Creatinine Glucose POC Glucose 115 H 139 H Lactic Acid Calcium Phosphorus AST Total Creatine Kinase Troponin T HDL Cholesterol Arterial Blood Glucose 144 H Arterial Blood Ionized Calcium Urine WBC (Auto) Urine Creatinine 09/24/20 09/24/20 09/24/20 04:20 04:30 05:10 WBC 14.3 H RBC Hgb Hct MCV RDW 16.6 H Plt Count 135 L Lymph % (Auto) 5.9 L Rowan % (Auto) Lymph # (Auto) 0.8 L [place] # (Auto) 0.9 H Seg Neutrophils % 87.5 H Seg Neuts % (Manual) Lymphocytes % (Manual) Seg Neutrophils # 12.5 H PT INR ABG pH POC ABG pCO2 POC ABG pO2 ABG pO2 ABG HCO3 ABG O2 Saturation ABG Base Excess ABG Oxyhemoglobin ABG Sodium ABG Potassium ABG Chloride ABG Glucose Sodium 147 H Potassium Chloride 114.4 H Carbon Dioxide 19 L BUN 50 H Creatinine 3.2 H Glucose 142 H POC Glucose 137 H Lactic Acid Calcium 8.3 L Phosphorus AST Total Creatine Kinase Troponin T HDL Cholesterol Arterial Blood Glucose Arterial Blood Ionized Calcium Urine WBC (Auto) Urine Creatinine 09/24/20 09/24/20 09/24/20 12:03 17:39 23:15 WBC RBC Hgb Hct MCV RDW Plt Count Lymph % (Auto) [place]an % (Auto) Lymph # (Auto) [place] # (Auto) Seg Neutrophils % Seg Neuts % (Manual) Lymphocytes % (Manual) Seg Neutrophils # PT INR ABG pH POC ABG pCO2 POC ABG pO2 ABG pO2 ABG HCO3 ABG O2 Saturation ABG Base Excess ABG Oxyhemoglobin ABG Sodium ABG Potassium ABG Chloride ABG Glucose Sodium Potassium Chloride Carbon Dioxide BUN Creatinine Glucose POC Glucose 120 H 155 H 109 H Lactic Acid Calcium Phosphorus AST Total Creatine Kinase Troponin T HDL Cholesterol Arterial Blood Glucose Arterial Blood Ionized Calcium Urine WBC (Auto) Urine Creatinine 09/25/20 09/25/20 09/25/20 03:02 05:16 07:50 WBC 14.0 H RBC Hgb Hct MCV RDW 16.5 H Plt Count Lymph % (Auto) 6.7 L Rowan % (Auto) 9.1 H Lymph # (Auto) 0.9 L [place] # (Auto) 1.3 H Seg Neutrophils % 84.1 H Seg Neuts % (Manual) Lymphocytes % (Manual) Seg Neutrophils # 11.8 H PT INR ABG pH POC ABG pCO2 POC ABG pO2 67.4 L ABG pO2 ABG HCO3 ABG O2 Saturation ABG Base Excess ABG Oxyhemoglobin 92.3 L ABG Sodium 157.3 H ABG Potassium ABG Chloride 125.0 H ABG Glucose 147 H Sodium Potassium Chloride Carbon Dioxide BUN Creatinine Glucose POC Glucose 126 H Lactic Acid Calcium Phosphorus AST Total Creatine Kinase Troponin T HDL Cholesterol Arterial Blood Glucose 147 H Arterial Blood Ionized Calcium Urine WBC (Auto) Urine Creatinine 09/25/20 09/25/20 09/25/20 07:50 11:56 14:50 WBC RBC Hgb Hct MCV RDW Plt Count Lymph % (Auto) Rowan % (Auto) Lymph # (Auto) [place] # (Auto) Seg Neutrophils % Seg Neuts % (Manual) Lymphocytes % (Manual) Seg Neutrophils # PT INR ABG pH POC ABG pCO2 POC ABG pO2 ABG pO2 ABG HCO3 ABG O2 Saturation ABG Base Excess ABG Oxyhemoglobin ABG Sodium ABG Potassium ABG Chloride ABG Glucose Sodium 160 H D 160 H Potassium Chloride 124.2 H Carbon Dioxide BUN 54 H Creatinine 2.8 H Glucose 124 H POC Glucose 109 H Lactic Acid Calcium 8.3 L Phosphorus AST Total Creatine Kinase Troponin T HDL Cholesterol Arterial Blood Glucose Arterial Blood Ionized Calcium Urine WBC (Auto) Urine Creatinine Assessment and Plan 50 y/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
[2020-09-26] MEDS: hydrALAZINE 20 MG/1 ML INJ IV SCH ×6 (02:05→21:27)
[2020-09-26] MEDS: ACETAMINOPHEN 325 MG/10.15 ML ORAL LIQD UNIT DOSE FEEDTUBE PRN ×3 (04:32→20:52)
[2020-09-26 04:37] LABS: Basophils % (Auto) 0.3 % (0.0-1.8); Eosinophils % (Auto) 0.1 % (0.0-4.3); Hemoglobin 13.8 gm/dl (11.8-15.2); Lymphocytes % (Auto) 7.4 % (13.4-35.0); Mean Corpuscular HGB Conc 33 % (32-34); Mean Corpuscular Volume 93 fl (84-94); Monocytes # (Auto) 1.6 K/mm3 (0.0-0.8); Monocytes % (Auto) 11.2 % (0.0-7.3); Platelet Count 133 K/mm3 (140-440); Red Blood Count 4.49 M/mm3 (3.65-5.03); Red Cell Distribution Width 16.2 % (13.2-15.2)
[2020-09-26 05:05] LABS: Calcium 8.7 mg/dL (8.4-10.2)
[2020-09-26] MEDS: METOPROLOL TARTRATE 5 MG/5 ML INJ IV SCH ×3 (06:11→18:01)
--- NOTE | 2020-09-26 08:19 | Ultrasound Report ---
ULTRASOUND RENAL INDICATION / CLINICAL INFORMATION: Renal failure. COMPARISON: None available. FINDINGS: RIGHT KIDNEY: - Length = 16.9 cm. [Normal > 9.0 cm] - Parenchymal Thickness = 1.3 cm. [Normal > 1.5 cm] - Echogenicity: Echogenic -- hyperechoic to liver/spleen. - Hydronephrosis: None. - Cyst or mass: Multiple simple and mildly complicated cysts scattered throughout, the largest of whi ch measures 3.7 cm. LEFT KIDNEY: - Length = 14.6 cm. [Normal > 9.0 cm] - Parenchymal Thickness = 1.4 cm. [Normal > 1.5 cm] - Echogenicity: Echogenic -- hyperechoic to liver/spleen. - Hydronephrosis: None. - Cyst or mass: Multiple simple and mildly complicated cysts scattered throughout, the largest of whi ch measures 3.3 cm. URINARY BLADDER: Collapsed with a Park catheter present. ADDITIONAL FINDINGS: None. IMPRESSION: Enlarged echogenic kidneys containing multiple cysts bilaterally. The findings are charac teristic of adult polycystic kidney disease and medical renal disease. No evidence of hydronephrosis. Renal Parenchymal Thickness Parenchyma = Cortex + Medullary Pyramid - Normal >= 1.5 cm - Mild thinning = 1.0-1.49 cm - Moderate thinning = 0.5-0.99 cm - Severe thinning < 0.5 cm Signer Name: Thomas Leigh MD Signed: 09/26/2020 8:14 AM Workstation Name: [id number]
--- NOTE | 2020-09-26 09:01 | Progress Note ---
Assessment and Plan - Patient Problems (1) Acute anoxic encephalopathy Current Visit: Yes Status: Acute (2) Fever Current Visit: Yes Status: Acute (3) Hypernatremia Current Visit: Yes Status: Acute (4) Acute respiratory failure Current Visit: Yes Status: Acute (5) Cardiopulmonary arrest Current Visit: Yes Status: Acute (6) Renal failure Current Visit: Yes Status: Acute Qualifiers: Renal failure chronicity: acute Acute renal failure type: unspecified Qualified Code(s): N17.9 - Acute kidney failure, unspecified Subjective Principal diagnosis: Acute respiratory failure Interval history: on vent No sedation CMV 20 p6 fio2 35% pt made and Objective Vital Signs - 12hr 09/25/20 09/25/20 09/25/20 21:30 21:55 22:00 Temperature Pulse Rate 105 H 105 H 104 H Pulse Rate [ From Monitor] Respiratory 32 H 15 Rate Blood Pressure 127/80 127/80 126/83 O2 Sat by Pulse 96 97 Oximetry 09/25/20 09/25/20 09/25/20 22:09 22:30 23:01 Temperature Pulse Rate 106 H 103 H 108 H Pulse Rate [ From Monitor] Respiratory 22 27 H 30 H Rate Blood Pressure 126/83 113/74 149/95 O2 Sat by Pulse 97 96 97 Oximetry 09/25/20 09/25/20 09/25/20 23:30 23:37 23:58 Temperature 102.7 F H Pulse Rate 112 H 113 H Pulse Rate [ From Monitor] Respiratory 28 H Rate Blood Pressure 154/97 154/97 O2 Sat by Pulse 95 Oximetry 09/26/20 09/26/20 09/26/20 00:00 00:26 00:30 Temperature Pulse Rate 104 H 102 H 101 H Pulse Rate [ 102 H From Monitor] Respiratory 24 29 H Rate Blood Pressure 146/95 146/95 151/99 O2 Sat by Pulse 93 95 95 Oximetry 09/26/20 09/26/20 09/26/20 01:00 01:30 02:00 Temperature Pulse Rate 103 H 105 H 107 H Pulse Rate [ From Monitor] Respiratory 29 H 30 H 30 H Rate Blood Pressure 136/91 154/97 149/96 O2 Sat by Pulse 95 95 95 Oximetry 09/26/20 09/26/20 09/26/20 02:05 02:30 03:00 Temperature Pulse Rate 106 H 110 H 121 H Pulse Rate [ From Monitor] Respiratory 33 H 20 Rate Blood Pressure 149/96 154/101 145/93 O2 Sat by Pulse 94 95 Oximetry 09/26/20 09/26/20 09/26/20 03:30 04:00 04:30 Temperature 102.7 F H Pulse Rate 114 H 120 H 118 H Pulse Rate [ 115 H From Monitor] Respiratory 35 H 34 H 33 H Rate Blood Pressure 150/94 154/97 149/94 O2 Sat by Pulse 94 96 97 Oximetry 09/26/20 09/26/20 09/26/20 05:00 05:30 06:00 Temperature Pulse Rate 125 H 125 H 120 H Pulse Rate [ From Monitor] Respiratory 40 H 36 H 32 H Rate Blood Pressure 151/98 144/99 138/89 O2 Sat by Pulse 96 95 96 Oximetry 09/26/20 09/26/20 09/26/20 06:11 06:12 06:30 Temperature Pulse Rate 118 H 118 H 105 H Pulse Rate [ From Monitor] Respiratory 29 H Rate Blood Pressure 138/89 138/89 128/88 O2 Sat by Pulse 96 Oximetry 09/26/20 09/26/20 09/26/20 07:00 07:01 07:30 Temperature 102.0 F H Pulse Rate 107 H 104 H Pulse Rate [ From Monitor] Respiratory 19 33 H Rate Blood Pressure 124/81 110/76 O2 Sat by Pulse 97 95 Oximetry 09/26/20 09/26/20 09/26/20 07:42 08:00 08:30 Temperature Pulse Rate 105 H 109 H Pulse Rate [ From Monitor] Respiratory 35 H 33 H Rate Blood Pressure 110/76 120/76 119/74 O2 Sat by Pulse 97 95 96 Oximetry Constitutional: other (on vent non responsive no sedation) Eyes: non-icteric ENT: other (intubated) Neck: supple Effort: normal Ascultation: Bilateral: clear Percussion: Bilateral: not dull Tactile fremitus: Bilateral: normal Cardiovascular: other (sinus tachycardia) Gastrointestinal: normoactive bowel sounds, soft Integumentary: normal Extremities: no cyanosis, no edema, pink and warm Neurologic: other (comatose/unresponsive) Psychiatric: other (unable to assess) CBC and BMP: 09/26/20 04:17 09/26/20 04:17 ABG, PT/INR, D-dimer: ABG ABG pH 7.472 (7.320-7.450) H 09/26/20 03:30 POC ABG pCO2 31.1 mmHg (32.0-48.0) L 09/26/20 03:30 ABG pCO2 40.5 mm Hg 09/21/20 02:15 POC ABG pO2 56.5 mmHg (83-108) L 09/26/20 03:30 ABG pO2 244.1 mm Hg (80.0-90.0) H 09/21/20 02:15 POC ABG HCO3 22.2 09/26/20 03:30 ABG O2 Saturation 92.5 (0-100) 09/26/20 03:30 PT/INR, D-dimer PT 15.5 Sec. (12.2-14.9) H 09/22/20 08:26 INR 1.25 (0.87-1.13) H 09/22/20 08:26 Abnormal lab findings: Abnormal Labs 09/20/20 09/20/20 09/20/20 23:02 23:02 23:02 WBC RBC Hgb Hct MCV 96 H RDW 15.8 H Plt Count Lymph % (Auto) [place] % (Auto) Lymph # (Auto) [place] # (Auto) Seg Neutrophils % Seg Neuts % (Manual) 34.0 L Lymphocytes % (Manual) 57.0 H Seg Neutrophils # PT INR 1.14 H ABG pH POC ABG pCO2 POC ABG pO2 ABG pO2 ABG HCO3 ABG O2 Saturation ABG Base Excess ABG Oxyhemoglobin ABG Sodium ABG Potassium ABG Chloride ABG Glucose Sodium Potassium Chloride Carbon Dioxide 21 L BUN 26 H Creatinine 2.1 H Glucose 227 H POC Glucose Lactic Acid Calcium 10.3 H Phosphorus AST 59 H Total Creatine Kinase Troponin T HDL Cholesterol Arterial Blood Glucose Arterial Blood Ionized Calcium Urine WBC (Auto) Urine Creatinine 09/20/20 09/20/20 09/21/20 23:15 23:35 01:20 WBC RBC Hgb Hct MCV RDW Plt Count Lymph % (Auto) [place] % (Auto) Lymph # (Auto) [place] # (Auto) Seg Neutrophils % Seg Neuts % (Manual) Lymphocytes % (Manual) Seg Neutrophils # PT INR ABG pH POC ABG pCO2 POC ABG pO2 ABG pO2 ABG HCO3 ABG O2 Saturation ABG Base Excess ABG Oxyhemoglobin ABG Sodium ABG Potassium ABG Chloride ABG Glucose Sodium Potassium Chloride Carbon Dioxide BUN Creatinine Glucose POC Glucose 197 H Lactic Acid 8.70 H* Calcium Phosphorus AST Total Creatine Kinase Troponin T HDL Cholesterol Arterial Blood Glucose Arterial Blood Ionized Calcium Urine WBC (Auto) 47.0 H Urine Creatinine 09/21/20 09/21/20 09/21/20 02:01 02:15 04:25 WBC RBC Hgb Hct MCV RDW Plt Count Lymph % (Auto) [place] % (Auto) Lymph # (Auto) [place] # (Auto) Seg Neutrophils % Seg Neuts % (Manual) Lymphocytes % (Manual) Seg Neutrophils # PT INR ABG pH 7.258 L POC ABG pCO2 POC ABG pO2 ABG pO2 244.1 H ABG HCO3 17.7 L ABG O2 Saturation 99.4 H ABG Base Excess -8.8 L ABG Oxyhemoglobin ABG Sodium ABG Potassium ABG Chloride ABG Glucose Sodium Potassium Chloride Carbon Dioxide BUN Creatinine Glucose POC Glucose 65 L Lactic Acid Calcium Phosphorus AST Total Creatine Kinase Troponin T 0.865 H* D HDL Cholesterol 60 H Arterial Blood Glucose Arterial Blood Ionized Calcium Urine WBC (Auto) Urine Creatinine 09/21/20 09/21/20 09/21/20 04:34 04:34 07:03 WBC RBC Hgb 16.9 H D Hct 51.3 H D MCV RDW Plt Count Lymph % (Auto) [place] % (Auto) Lymph # (Auto) [place] # (Auto) Seg Neutrophils % Seg Neuts % (Manual) Lymphocytes % (Manual) Seg Neutrophils # PT INR ABG pH POC ABG pCO2 POC ABG pO2 ABG pO2 ABG HCO3 ABG O2 Saturation ABG Base Excess ABG Oxyhemoglobin ABG Sodium ABG Potassium ABG Chloride ABG Glucose Sodium Potassium Chloride Carbon Dioxide BUN Creatinine Glucose POC Glucose Lactic Acid 3.00 H* Calcium Phosphorus AST Total Creatine Kinase Troponin T 1.880 H* D HDL Cholesterol Arterial Blood Glucose Arterial Blood Ionized Calcium Urine WBC (Auto) Urine Creatinine 09/21/20 09/21/20 09/21/20 07:03 07:32 07:53 WBC 19.2 H RBC 5.31 H Hgb 16.0 H Hct 49.0 H MCV RDW 15.7 H Plt Count Lymph % (Auto) [place] % (Auto) Lymph # (Auto) [place] # (Auto) Seg Neutrophils % Seg Neuts % (Manual) Lymphocytes % (Manual) Seg Neutrophils # PT 16.3 H INR 1.31 H ABG pH POC ABG pCO2 POC ABG pO2 ABG pO2 ABG HCO3 ABG O2 Saturation ABG Base Excess ABG Oxyhemoglobin ABG Sodium ABG Potassium ABG Chloride ABG Glucose Sodium Potassium Chloride Carbon Dioxide BUN Creatinine Glucose POC Glucose 60 L Lactic Acid Calcium Phosphorus AST Total Creatine Kinase Troponin T HDL Cholesterol Arterial Blood Glucose Arterial Blood Ionized Calcium Urine WBC (Auto) Urine Creatinine 09/21/20 09/21/20 09/21/20 07:53 09:30 10:08 WBC RBC Hgb Hct MCV RDW Plt Count Lymph % (Auto) [place] % (Auto) Lymph # (Auto) [place] # (Auto) Seg Neutrophils % Seg Neuts % (Manual) Lymphocytes % (Manual) Seg Neutrophils # PT 15.4 H INR 1.24 H ABG pH POC ABG pCO2 POC ABG pO2 ABG pO2 ABG HCO3 ABG O2 Saturation ABG Base Excess ABG Oxyhemoglobin ABG Sodium ABG Potassium ABG Chloride ABG Glucose Sodium 146 H Potassium 3.5 L Chloride 109.6 H Carbon Dioxide 20 L BUN 37 H Creatinine 2.8 H Glucose 127 H POC Glucose Lactic Acid 3.00 H* Calcium Phosphorus AST Total Creatine Kinase Troponin T HDL Cholesterol Arterial Blood Glucose Arterial Blood Ionized Calcium Urine WBC (Auto) Urine Creatinine 09/21/20 09/21/20 09/21/20 10:34 11:22 11:44 WBC RBC Hgb Hct MCV RDW Plt Count Lymph % (Auto) [place] % (Auto) Lymph # (Auto) [place] # (Auto) Seg Neutrophils % Seg Neuts % (Manual) Lymphocytes % (Manual) Seg Neutrophils # PT INR ABG pH POC ABG pCO2 25.9 L POC ABG pO2 196.9 H ABG pO2 ABG HCO3 ABG O2 Saturation ABG Base Excess ABG Oxyhemoglobin 98.4 H ABG Sodium ABG Potassium 3.3 L ABG Chloride 113.0 H ABG Glucose 130 H Sodium Potassium Chloride Carbon Dioxide BUN Creatinine Glucose POC Glucose 126 H 127 H Lactic Acid Calcium Phosphorus AST Total Creatine Kinase Troponin T HDL Cholesterol Arterial Blood Glucose 130 H Arterial Blood Ionized Calcium Urine WBC (Auto) Urine Creatinine 09/21/20 09/21/20 09/21/20 14:27 14:27 15:09 WBC RBC Hgb Hct MCV RDW Plt Count Lymph % (Auto) [place] % (Auto) Lymph # (Auto) [place] # (Auto) Seg Neutrophils % Seg Neuts % (Manual) Lymphocytes % (Manual) Seg Neutrophils # PT INR ABG pH POC ABG pCO2 POC ABG pO2 ABG pO2 ABG HCO3 ABG O2 Saturation ABG Base Excess ABG Oxyhemoglobin ABG Sodium ABG Potassium ABG Chloride ABG Glucose Sodium Potassium Chloride Carbon Dioxide BUN Creatinine Glucose POC Glucose 135 H Lactic Acid Calcium Phosphorus AST Total Creatine Kinase Troponin T HDL Cholesterol Arterial Blood Glucose Arterial Blood Ionized Calcium Urine WBC (Auto) 12.0 H Urine Creatinine 60.4 H 09/21/20 09/21/20 09/21/20 15:54 15:54 16:13 WBC RBC Hgb Hct MCV RDW Plt Count Lymph % (Auto) [place] % (Auto) Lymph # (Auto) [place] # (Auto) Seg Neutrophils % Seg Neuts % (Manual) Lymphocytes % (Manual) Seg Neutrophils # PT INR ABG pH POC ABG pCO2 POC ABG pO2 ABG pO2 ABG HCO3 ABG O2 Saturation ABG Base Excess ABG Oxyhemoglobin ABG Sodium ABG Potassium ABG Chloride ABG Glucose Sodium Potassium Chloride Carbon Dioxide BUN Creatinine Glucose POC Glucose 131 H Lactic Acid 3.60 H* Calcium Phosphorus AST Total Creatine Kinase 3606 H Troponin T HDL Cholesterol Arterial Blood Glucose Arterial Blood Ionized Calcium Urine WBC (Auto) Urine Creatinine 09/21/20 09/21/20 09/21/20 18:02 19:48 20:57 WBC RBC Hgb Hct MCV RDW Plt Count Lymph % (Auto) [place] % (Auto) Lymph # (Auto) [place] # (Auto) Seg Neutrophils % Seg Neuts % (Manual) Lymphocytes % (Manual) Seg Neutrophils # PT INR ABG pH POC ABG pCO2 POC ABG pO2 ABG pO2 ABG HCO3 ABG O2 Saturation ABG Base Excess ABG Oxyhemoglobin ABG Sodium ABG Potassium ABG Chloride ABG Glucose Sodium Potassium Chloride Carbon Dioxide BUN Creatinine Glucose POC Glucose 139 H 184 H 173 H Lactic Acid Calcium Phosphorus AST Total Creatine Kinase Troponin T HDL Cholesterol Arterial Blood Glucose Arterial Blood Ionized Calcium Urine WBC (Auto) Urine Creatinine 09/21/20 09/21/20 09/21/20 22:02 22:27 23:54 WBC RBC Hgb Hct MCV RDW Plt Count Lymph % (Auto) [place] % (Auto) Lymph # (Auto) [place] # (Auto) Seg Neutrophils % Seg Neuts % (Manual) Lymphocytes % (Manual) Seg Neutrophils # PT INR ABG pH POC ABG pCO2 POC ABG pO2 ABG pO2 ABG HCO3 ABG O2 Saturation ABG Base Excess ABG Oxyhemoglobin ABG Sodium ABG Potassium ABG Chloride ABG Glucose Sodium Potassium Chloride Carbon Dioxide BUN Creatinine Glucose POC Glucose 147 H 142 H 143 H Lactic Acid Calcium Phosphorus AST Total Creatine Kinase Troponin T HDL Cholesterol Arterial Blood Glucose Arterial Blood Ionized Calcium Urine WBC (Auto) Urine Creatinine 09/22/20 09/22/20 09/22/20 00:49 02:01 02:14 WBC RBC Hgb Hct MCV RDW Plt Count Lymph % (Auto) [place] % (Auto) Lymph # (Auto) [place] # (Auto) Seg Neutrophils % Seg Neuts % (Manual) Lymphocytes % (Manual) Seg Neutrophils # PT INR ABG pH POC ABG pCO2 POC ABG pO2 ABG pO2 ABG HCO3 ABG O2 Saturation ABG Base Excess ABG Oxyhemoglobin ABG Sodium ABG Potassium ABG Chloride ABG Glucose Sodium Potassium Chloride Carbon Dioxide BUN Creatinine Glucose POC Glucose 154 H 154 H 149 H Lactic Acid Calcium Phosphorus AST Total Creatine Kinase Troponin T HDL Cholesterol Arterial Blood Glucose Arterial Blood Ionized Calcium Urine WBC (Auto) Urine Creatinine 09/22/20 09/22/20 09/22/20 02:57 03:21 03:58 WBC RBC Hgb Hct MCV RDW Plt Count Lymph % (Auto) [place] % (Auto) Lymph # (Auto) [place] # (Auto) Seg Neutrophils % Seg Neuts % (Manual) Lymphocytes % (Manual) Seg Neutrophils # PT INR ABG pH 7.496 H POC ABG pCO2 25.0 L POC ABG pO2 73.8 L ABG pO2 ABG HCO3 ABG O2 Saturation ABG Base Excess ABG Oxyhemoglobin ABG Sodium ABG Potassium ABG Chloride 115.0 H ABG Glucose 154 H Sodium Potassium Chloride Carbon Dioxide BUN Creatinine Glucose POC Glucose 166 H 158 H Lactic Acid Calcium Phosphorus AST Total Creatine Kinase Troponin T HDL Cholesterol Arterial Blood Glucose 154 H Arterial Blood Ionized Calcium 4.5 L Urine WBC (Auto) Urine Creatinine 09/22/20 09/22/20 09/22/20 05:06 05:56 06:50 WBC RBC Hgb Hct MCV RDW Plt Count Lymph % (Auto) [place] % (Auto) Lymph # (Auto) [place] # (Auto) Seg Neutrophils % Seg Neuts % (Manual) Lymphocytes % (Manual) Seg Neutrophils # PT INR ABG pH POC ABG pCO2 POC ABG pO2 ABG pO2 ABG HCO3 ABG O2 Saturation ABG Base Excess ABG Oxyhemoglobin ABG Sodium ABG Potassium ABG Chloride ABG Glucose Sodium Potassium Chloride Carbon Dioxide BUN Creatinine Glucose POC Glucose 147 H 145 H 137 H Lactic Acid Calcium Phosphorus AST Total Creatine Kinase Troponin T HDL Cholesterol Arterial Blood Glucose Arterial Blood Ionized Calcium Urine WBC (Auto) Urine Creatinine 09/22/20 09/22/20 09/22/20 08:02 08:26 08:26 WBC 15.2 H RBC Hgb Hct MCV RDW 16.0 H Plt Count Lymph % (Auto) 7.6 L [place] % (Auto) Lymph # (Auto) [place] # (Auto) 1.0 H Seg Neutrophils % 86.0 H Seg Neuts % (Manual) Lymphocytes % (Manual) Seg Neutrophils # 13.0 H PT 15.5 H INR 1.25 H ABG pH POC ABG pCO2 POC ABG pO2 ABG pO2 ABG HCO3 ABG O2 Saturation ABG Base Excess ABG Oxyhemoglobin ABG Sodium ABG Potassium ABG Chloride ABG Glucose Sodium Potassium Chloride Carbon Dioxide BUN Creatinine Glucose POC Glucose 149 H Lactic Acid Calcium Phosphorus AST Total Creatine Kinase Troponin T HDL Cholesterol Arterial Blood Glucose Arterial Blood Ionized Calcium Urine WBC (Auto) Urine Creatinine 09/22/20 09/22/20 09/22/20 08:26 12:04 15:55 WBC RBC Hgb Hct MCV RDW Plt Count Lymph % (Auto) [place] % (Auto) Lymph # (Auto) [place] # (Auto) Seg Neutrophils % Seg Neuts % (Manual) Lymphocytes % (Manual) Seg Neutrophils # PT INR ABG pH POC ABG pCO2 POC ABG pO2 ABG pO2 ABG HCO3 ABG O2 Saturation ABG Base Excess ABG Oxyhemoglobin ABG Sodium ABG Potassium ABG Chloride ABG Glucose Sodium 146 H Potassium 3.5 L Chloride 114.0 H Carbon Dioxide 18 L BUN 46 H Creatinine 3.7 H Glucose 134 H POC Glucose 138 H 123 H Lactic Acid Calcium 7.7 L Phosphorus AST Total Creatine Kinase Troponin T HDL Cholesterol Arterial Blood Glucose Arterial Blood Ionized Calcium Urine WBC (Auto) Urine Creatinine 09/22/20 09/22/20 09/23/20 21:57 23:41 03:30 WBC 14.2 H RBC Hgb Hct MCV RDW 16.5 H Plt Count 126 L Lymph % (Auto) 8.2 L [place] % (Auto) 7.8 H Lymph # (Auto) [place] # (Auto) 1.1 H Seg Neutrophils % 83.8 H Seg Neuts % (Manual) Lymphocytes % (Manual) Seg Neutrophils # 11.9 H PT INR ABG pH POC ABG pCO2 POC ABG pO2 ABG pO2 ABG HCO3 ABG O2 Saturation ABG Base Excess ABG Oxyhemoglobin ABG Sodium ABG Potassium ABG Chloride ABG Glucose Sodium Potassium Chloride Carbon Dioxide BUN Creatinine Glucose POC Glucose 124 H 130 H Lactic Acid Calcium Phosphorus AST Total Creatine Kinase Troponin T HDL Cholesterol Arterial Blood Glucose Arterial Blood Ionized Calcium Urine WBC (Auto) Urine Creatinine 09/23/20 09/23/20 09/23/20 03:30 03:45 12:33 WBC RBC Hgb Hct MCV RDW Plt Count Lymph % (Auto) [place] % (Auto) Lymph # (Auto) [place] # (Auto) Seg Neutrophils % Seg Neuts % (Manual) Lymphocytes % (Manual) Seg Neutrophils # PT INR ABG pH POC ABG pCO2 POC ABG pO2 ABG pO2 ABG HCO3 ABG O2 Saturation ABG Base Excess ABG Oxyhemoglobin ABG Sodium ABG Potassium ABG Chloride ABG Glucose Sodium Potassium Chloride 110.4 H Carbon Dioxide 19 L BUN 56 H Creatinine 4.7 H Glucose 148 H POC Glucose 132 H 139 H Lactic Acid Calcium 7.4 L Phosphorus 5.80 H D AST Total Creatine Kinase Troponin T HDL Cholesterol Arterial Blood Glucose Arterial Blood Ionized Calcium Urine WBC (Auto) Urine Creatinine 09/23/20 09/23/20 09/24/20 17:54 23:18 02:57 WBC RBC Hgb Hct MCV RDW Plt Count Lymph % (Auto) [place] % (Auto) Lymph # (Auto) [place] # (Auto) Seg Neutrophils % Seg Neuts % (Manual) Lymphocytes % (Manual) Seg Neutrophils # PT INR ABG pH POC ABG pCO2 30.0 L POC ABG pO2 75.1 L ABG pO2 ABG HCO3 ABG O2 Saturation ABG Base Excess ABG Oxyhemoglobin ABG Sodium 149.5 H ABG Potassium ABG Chloride 119.0 H ABG Glucose 144 H Sodium Potassium Chloride Carbon Dioxide BUN Creatinine Glucose POC Glucose 115 H 139 H Lactic Acid Calcium Phosphorus AST Total Creatine Kinase Troponin T HDL Cholesterol Arterial Blood Glucose 144 H Arterial Blood Ionized Calcium Urine WBC (Auto) Urine Creatinine 09/24/20 09/24/20 09/24/20 04:20 04:30 05:10 WBC 14.3 H RBC Hgb Hct MCV RDW 16.6 H Plt Count 135 L Lymph % (Auto) 5.9 L [place] % (Auto) Lymph # (Auto) 0.8 L [place] # (Auto) 0.9 H Seg Neutrophils % 87.5 H Seg Neuts % (Manual) Lymphocytes % (Manual) Seg Neutrophils # 12.5 H PT INR ABG pH POC ABG pCO2 POC ABG pO2 ABG pO2 ABG HCO3 ABG O2 Saturation ABG Base Excess ABG Oxyhemoglobin ABG Sodium ABG Potassium ABG Chloride ABG Glucose Sodium 147 H Potassium Chloride 114.4 H Carbon Dioxide 19 L BUN 50 H Creatinine 3.2 H Glucose 142 H POC Glucose 137 H Lactic Acid Calcium 8.3 L Phosphorus AST Total Creatine Kinase Troponin T HDL Cholesterol Arterial Blood Glucose Arterial Blood Ionized Calcium Urine WBC (Auto) Urine Creatinine 09/24/20 09/24/20 09/24/20 12:03 17:39 23:15 WBC RBC Hgb Hct MCV RDW Plt Count Lymph % (Auto) [place] % (Auto) Lymph # (Auto) [place] # (Auto) Seg Neutrophils % Seg Neuts % (Manual) Lymphocytes % (Manual) Seg Neutrophils # PT INR ABG pH POC ABG pCO2 POC ABG pO2 ABG pO2 ABG HCO3 ABG O2 Saturation ABG Base Excess ABG Oxyhemoglobin ABG Sodium ABG Potassium ABG Chloride ABG Glucose Sodium Potassium Chloride Carbon Dioxide BUN Creatinine Glucose POC Glucose 120 H 155 H 109 H Lactic Acid Calcium Phosphorus AST Total Creatine Kinase Troponin T HDL Cholesterol Arterial Blood Glucose Arterial Blood Ionized Calcium Urine WBC (Auto) Urine Creatinine 09/25/20 09/25/20 09/25/20 03:02 05:16 07:50 WBC 14.0 H RBC Hgb Hct MCV RDW 16.5 H Plt Count Lymph % (Auto) 6.7 L [place] % (Auto) 9.1 H Lymph # (Auto) 0.9 L [place] # (Auto) 1.3 H Seg Neutrophils % 84.1 H Seg Neuts % (Manual) Lymphocytes % (Manual) Seg Neutrophils # 11.8 H PT INR ABG pH POC ABG pCO2 POC ABG pO2 67.4 L ABG pO2 ABG HCO3 ABG O2 Saturation ABG Base Excess ABG Oxyhemoglobin 92.3 L ABG Sodium 157.3 H ABG Potassium ABG Chloride 125.0 H ABG Glucose 147 H Sodium Potassium Chloride Carbon Dioxide BUN Creatinine Glucose POC Glucose 126 H Lactic Acid Calcium Phosphorus AST Total Creatine Kinase Troponin T HDL Cholesterol Arterial Blood Glucose 147 H Arterial Blood Ionized Calcium Urine WBC (Auto) Urine Creatinine 09/25/20 09/25/20 09/25/20 07:50 11:56 14:50 WBC RBC Hgb Hct MCV RDW Plt Count Lymph % (Auto) [place] % (Auto) Lymph # (Auto) [place] # (Auto) Seg Neutrophils % Seg Neuts % (Manual) Lymphocytes % (Manual) Seg Neutrophils # PT INR ABG pH POC ABG pCO2 POC ABG pO2 ABG pO2 ABG HCO3 ABG O2 Saturation ABG Base Excess ABG Oxyhemoglobin ABG Sodium ABG Potassium ABG Chloride ABG Glucose Sodium 160 H D 160 H Potassium Chloride 124.2 H Carbon Dioxide BUN 54 H Creatinine 2.8 H Glucose 124 H POC Glucose 109 H Lactic Acid Calcium 8.3 L Phosphorus AST Total Creatine Kinase Troponin T HDL Cholesterol Arterial Blood Glucose Arterial Blood Ionized Calcium Urine WBC (Auto) Urine Creatinine 09/25/20 09/25/20 09/25/20 18:02 19:45 23:02 WBC RBC Hgb Hct MCV RDW Plt Count Lymph % (Auto) [place] % (Auto) Lymph # (Auto) [place] # (Auto) Seg Neutrophils % Seg Neuts % (Manual) Lymphocytes % (Manual) Seg Neutrophils # PT INR ABG pH POC ABG pCO2 POC ABG pO2 ABG pO2 ABG HCO3 ABG O2 Saturation ABG Base Excess ABG Oxyhemoglobin ABG Sodium ABG Potassium ABG Chloride ABG Glucose Sodium 162 H* 160 H Potassium Chloride Carbon Dioxide BUN Creatinine Glucose POC Glucose 113 H Lactic Acid Calcium Phosphorus AST Total Creatine Kinase Troponin T HDL Cholesterol Arterial Blood Glucose Arterial Blood Ionized Calcium Urine WBC (Auto) Urine Creatinine 09/25/20 09/26/20 09/26/20 23:17 03:30 04:17 WBC 13.9 H RBC Hgb Hct MCV RDW 16.2 H Plt Count 133 L Lymph % (Auto) 7.4 L [place] % (Auto) 11.2 H Lymph # (Auto) 1.0 L [place] # (Auto) 1.6 H Seg Neutrophils % 81.0 H Seg Neuts % (Manual) Lymphocytes % (Manual) Seg Neutrophils # 11.3 H PT INR ABG pH 7.472 H POC ABG pCO2 31.1 L POC ABG pO2 56.5 L ABG pO2 ABG HCO3 ABG O2 Saturation ABG Base Excess ABG Oxyhemoglobin 91.3 L ABG Sodium 159.9 H ABG Potassium ABG Chloride 129.0 H ABG Glucose 135 H Sodium Potassium Chloride Carbon Dioxide BUN Creatinine Glucose POC Glucose 119 H Lactic Acid Calcium Phosphorus AST Total Creatine Kinase Troponin T HDL Cholesterol Arterial Blood Glucose 135 H Arterial Blood Ionized Calcium Urine WBC (Auto) Urine Creatinine 09/26/20 09/26/20 04:17 05:34 WBC RBC Hgb Hct MCV RDW Plt Count Lymph % (Auto) [place] % (Auto) Lymph # (Auto) [place] # (Auto) Seg Neutrophils % Seg Neuts % (Manual) Lymphocytes % (Manual) Seg Neutrophils # PT INR ABG pH POC ABG pCO2 POC ABG pO2 ABG pO2 ABG HCO3 ABG O2 Saturation ABG Base Excess ABG Oxyhemoglobin ABG Sodium ABG Potassium ABG Chloride ABG Glucose Sodium 162 H* Potassium Chloride 128.4 H Carbon Dioxide BUN 56 H Creatinine 2.5 H Glucose 128 H POC Glucose 135 H Lactic Acid Calcium Phosphorus 2.00 L D AST Total Creatine Kinase Troponin T HDL Cholesterol Arterial Blood Glucose Arterial Blood Ionized Calcium Urine WBC (Auto) Urine Creatinine
[2020-09-26] MEDS: ASPIRIN 325 MG TAB PO SCH (09:32)
[2020-09-26] MEDS: FAMOTIDINE 20 MG TAB PO SCH (09:32)
[2020-09-26] MEDS: HEPARIN 5,000 UNIT/1 ML VIAL SUB-Q SCH ×2 (09:32→21:27)
--- NOTE | 2020-09-26 11:35 | Progress Note ---
Assessment and Plan - Patient Problems (1) Cardiopulmonary arrest Current Visit: Yes Status: Acute Plan to address problem: An echocardiogram demonstrates severe left ventricular dysfunction, ejection fraction 10-15%. Patient presented with out of hospital cardiopulmonary arrest, underlying severe dilated cardiomyopathy, currently on supportive management. Prognosis is poor. Subjective Date of service: 09/26/20 Principal diagnosis: Acute respiratory failure Interval history: Remains intubated, unresponsive, on the vent. Objective Vital Signs Temp Pulse Pulse Resp BP Pulse Ox 09/26/20 11:24 119 H 120/82 96 09/26/20 09:55 102.6 F H 09/26/20 09:31 110 H 123/99 09/26/20 09:03 98 09/26/20 08:30 109 H 33 H 119/74 96 09/26/20 08:00 105 H 35 H 120/76 95 09/26/20 07:42 110/76 97 09/26/20 07:30 104 H 33 H 110/76 95 09/26/20 07:01 107 H 19 124/81 97 09/26/20 07:00 102.0 F H 09/26/20 06:30 105 H 29 H 128/88 96 09/26/20 06:12 118 H 138/89 09/26/20 06:11 118 H 138/89 09/26/20 06:00 120 H 32 H 138/89 96 09/26/20 05:30 125 H 36 H 144/99 95 09/26/20 05:00 125 H 40 H 151/98 96 09/26/20 04:30 118 H 33 H 149/94 97 09/26/20 04:00 102.7 F H 120 H 115 H 34 H 154/97 96 09/26/20 03:30 114 H 35 H 150/94 94 09/26/20 03:00 121 H 20 145/93 95 09/26/20 02:30 110 H 33 H 154/101 94 09/26/20 02:05 106 H 149/96 09/26/20 02:00 107 H 30 H 149/96 95 09/26/20 01:30 105 H 30 H 154/97 95 09/26/20 01:00 103 H 29 H 136/91 95 09/26/20 00:30 101 H 29 H 151/99 95 09/26/20 00:26 102 H 146/95 95 09/26/20 00:00 104 H 102 H 24 146/95 93 09/25/20 23:58 113 H 154/97 09/25/20 23:37 102.7 F H 09/25/20 23:30 112 H 28 H 154/97 95 09/25/20 23:01 108 H 30 H 149/95 97 09/25/20 22:30 103 H 27 H 113/74 96 09/25/20 22:09 106 H 22 126/83 97 09/25/20 22:00 104 H 15 126/83 97 09/25/20 21:55 105 H 127/80 09/25/20 21:30 105 H 32 H 127/80 96 09/25/20 21:00 111 H 30 H 128/88 96 09/25/20 20:30 110 H 30 H 151/92 96 09/25/20 20:00 102.8 F H 105 H 110 H 28 H 146/93 96 09/25/20 19:30 105 H 26 H 142/91 97 09/25/20 19:00 103 H 25 H 129/78 95 09/25/20 18:30 106 H 17 131/86 96 09/25/20 18:23 115 H 147/91 09/25/20 18:22 115 H 147/91 09/25/20 18:00 118 H 25 H 147/91 95 09/25/20 17:30 115 H 24 146/93 96 09/25/20 17:00 112 H 23 147/95 95 09/25/20 16:38 101 H 111/66 95 09/25/20 16:31 105 H 17 111/66 98 09/25/20 16:00 100.7 F H 100 H 24 113/71 95 09/25/20 15:30 99 H 24 119/76 94 09/25/20 15:27 99 H 118/76 09/25/20 15:00 97 H 23 118/76 95 09/25/20 14:30 97 H 20 111/76 95 09/25/20 14:00 100 H 24 127/83 96 09/25/20 13:30 92 H 24 128/79 95 09/25/20 13:00 92 H 23 136/85 95 09/25/20 12:44 110 H 136/88 09/25/20 12:30 113 H 22 136/88 95 09/25/20 12:10 108 H 137/93 97 09/25/20 12:00 103 F H 113 H 137/93 09/25/20 11:59 112 H 25 H 137/93 - Physical Examination General: Other (intubated, unresponsive, on the vent) Cardiac: Positive: Tachycardia - Labs and Meds CBC 09/26/20 Range/Units 04:17 WBC 13.9 H (4.5-11.0) K/mm3 RBC 4.49 (3.65-5.03) M/mm3 Hgb 13.8 (11.8-15.2) gm/dl Hct 42.0 (35.5-45.6) % Plt Count 133 L (140-440) K/mm3 Lymph # (Auto) 1.0 L (1.2-5.4) K/mm3 [place] # (Auto) 1.6 H (0.0-0.8) K/mm3 Eos # (Auto) 0.0 (0.0-0.4) K/mm3 Baso # (Auto) 0.0 (0.0-0.1) K/mm3 Comprehensive Metabolic Panel 09/25/20 09/25/20 09/25/20 Range/Units 14:50 19:45 23:02 Sodium 160 H 162 H* 160 H (137-145) mmol/L Potassium (3.6-5.0) mmol/L Chloride (98-107) mmol/L Carbon Dioxide (22-30) mmol/L BUN (9-20) mg/dL Creatinine (0.8-1.3) mg/dL Glucose (75-100) mg/dL Calcium (8.4-10.2) mg/dL 09/26/20 Range/Units 04:17 Sodium 162 H* (137-145) mmol/L Potassium 3.8 (3.6-5.0) mmol/L Chloride 128.4 H (98-107) mmol/L Carbon Dioxide 24 (22-30) mmol/L BUN 56 H (9-20) mg/dL Creatinine 2.5 H (0.8-1.3) mg/dL Glucose 128 H (75-100) mg/dL Calcium 8.7 (8.4-10.2) mg/dL
--- NOTE | 2020-09-26 12:17 | Progress Note ---
Assessment and Plan (1) Cardiac arrest (2) Respiratory failure (3) Hypotension (4) Renal failure Cr is trending down, good UOP cont to have hypernatremia, per neursurgery note no ICP, will start D5W 50 cc/h No indication for HD Renally dose medications Strict I&O's daily Monitor closely Subjective Date of service: 09/26/20 Principal diagnosis: Acute respiratory failure Interval history: on the vent Objective - Vital Signs Vital signs: Vital Signs - 12hr 09/26/20 09/26/20 09/26/20 00:26 00:30 01:00 Temperature Pulse Rate 102 H 101 H 103 H Pulse Rate [ From Monitor] Respiratory 29 H 29 H Rate Blood Pressure 146/95 151/99 136/91 O2 Sat by Pulse 95 95 95 Oximetry 09/26/20 09/26/20 09/26/20 01:30 02:00 02:05 Temperature Pulse Rate 105 H 107 H 106 H Pulse Rate [ From Monitor] Respiratory 30 H 30 H Rate Blood Pressure 154/97 149/96 149/96 O2 Sat by Pulse 95 95 Oximetry 09/26/20 09/26/20 09/26/20 02:30 03:00 03:30 Temperature Pulse Rate 110 H 121 H 114 H Pulse Rate [ From Monitor] Respiratory 33 H 20 35 H Rate Blood Pressure 154/101 145/93 150/94 O2 Sat by Pulse 94 95 94 Oximetry 09/26/20 09/26/20 09/26/20 04:00 04:30 05:00 Temperature 102.7 F H Pulse Rate 120 H 118 H 125 H Pulse Rate [ 115 H From Monitor] Respiratory 34 H 33 H 40 H Rate Blood Pressure 154/97 149/94 151/98 O2 Sat by Pulse 96 97 96 Oximetry 09/26/20 09/26/20 09/26/20 05:30 06:00 06:11 Temperature Pulse Rate 125 H 120 H 118 H Pulse Rate [ From Monitor] Respiratory 36 H 32 H Rate Blood Pressure 144/99 138/89 138/89 O2 Sat by Pulse 95 96 Oximetry 09/26/20 09/26/20 09/26/20 06:12 06:30 07:00 Temperature 102.0 F H Pulse Rate 118 H 105 H Pulse Rate [ From Monitor] Respiratory 29 H Rate Blood Pressure 138/89 128/88 O2 Sat by Pulse 96 Oximetry 09/26/20 09/26/20 09/26/20 07:01 07:30 07:42 Temperature Pulse Rate 107 H 104 H Pulse Rate [ From Monitor] Respiratory 19 33 H Rate Blood Pressure 124/81 110/76 110/76 O2 Sat by Pulse 97 95 97 Oximetry 09/26/20 09/26/20 09/26/20 08:00 08:30 09:03 Temperature Pulse Rate 105 H 109 H Pulse Rate [ From Monitor] Respiratory 35 H 33 H Rate Blood Pressure 120/76 119/74 O2 Sat by Pulse 95 96 98 Oximetry 09/26/20 09/26/20 09/26/20 09:31 09:55 11:24 Temperature 102.6 F H Pulse Rate 110 H 119 H Pulse Rate [ From Monitor] Respiratory Rate Blood Pressure 123/99 120/82 O2 Sat by Pulse 96 Oximetry 09/26/20 12:04 Temperature 100.7 F H Pulse Rate Pulse Rate [ From Monitor] Respiratory Rate Blood Pressure O2 Sat by Pulse Oximetry - Lab 09/26/20 04:17 09/26/20 04:17 Most recent lab results ABG pH 7.472 (7.320-7.450) H 09/26/20 03:30 ABG pCO2 40.5 mm Hg 09/21/20 02:15 ABG pO2 244.1 mm Hg (80.0-90.0) H 09/21/20 02:15 ABG HCO3 17.7 mmol/L (20.0-26.0) L 09/21/20 02:15 ABG O2 Saturation 92.5 (0-100) 09/26/20 03:30 Calcium 8.7 mg/dL (8.4-10.2) 09/26/20 04:17 Phosphorus 2.00 mg/dL (2.5-4.5) L D 09/26/20 04:17 Urine Creatinine 60.4 mg/dL (0.1-20.0) H 09/21/20 14:27 Urine Sodium 108 mmol/L 09/21/20 14:27 Medications & Allergies - Medications Allergies/Adverse Reactions: Allergies No Known Allergies Allergy (Unverified 09/20/20 23:08) Home Medications: Home Medications Medication Instructions Recorded Confirmed Last Taken Type Furosemide [Lasix] 40 mg PO QDAY 09/21/20 09/21/20 Unknown History Simvastatin 20 mg PO QDAY 09/21/20 09/21/20 Unknown History amLODIPine [Norvasc] 5 mg PO DAILY 09/21/20 09/21/20 Unknown History carvediloL [Coreg] 25 mg PO BID 09/21/20 09/21/20 Unknown History lisinopriL [Zestril TAB] 40 mg PO QDAY 09/21/20 09/21/20 Unknown History Active Medications: Generic Name Dose Route Start Last Admin Trade Name Freq PRN Reason Stop Dose Admin Acetaminophen 650 mg 09/21/20 15:51 09/26/20 09:34 Acetaminophen 325 Mg/10.15 Ml Oral Liqd Unit Dose FEEDTUBE 650 mg Q6H PRN Administration Pain, Mild (1-3) Lipase/Protease/Amylase 1 each 09/25/20 14:22 Lipase 10,500/Protease 25,000/Amylase 43,750 (Units) Dr Cap FEEDTUBE PRN PRN For Clogged Feeding Tube Aspirin 325 mg 09/21/20 16:00 09/26/20 09:32 Aspirin 325 Mg Tab PO 325 mg QDAY PATSY Administration Atorvastatin Calcium 40 mg 09/23/20 22:00 09/25/20 21:55 Atorvastatin 40 Mg Tab PO 40 mg QHS PATSY Administration Famotidine 20 mg 09/25/20 10:00 09/26/20 09:32 Famotidine 20 Mg Tab PO 20 mg DAILY PATSY Administration Heparin Sodium (Porcine) 5,000 unit 09/21/20 22:00 09/26/20 09:32 Heparin 5,000 Unit/1 Ml Vial SUB-Q 5,000 unit Q12HR PATSY Administration Hydralazine HCl 5 mg 09/23/20 14:00 09/26/20 09:31 Hydralazine 20 Mg/1 Ml Inj IV 5 mg Q4HR PATSY Administration Hydrophilic Ointment 1 applic 09/20/20 22:59 Lip Therapy Vaseline TP Q2HR PRN Dry Lips Norepinephrine 4 mg in 250 mls @ 7.5 mls/hr 09/21/20 05:00 Levophed Drip 4 Mg/Ns 250 Ml IV TITR PATSY Protocol 2 MCG/MIN Fentanyl Citrate 2,000 mcg in 100 mls @ 5.105 mls/hr 09/22/20 11:30 09/25/20 18:17 Fentanyl Drip Premix IV 0 mcg/kg/hr TITR PATSY 0 mls/hr Titration Protocol 1 MCG/KG/HR Dextrose 1,000 mls @ 100 mls/hr 09/26/20 13:00 D5w IV DIRECT PATSY Metoprolol Tartrate 5 mg 09/23/20 12:12 09/26/20 06:11 Metoprolol Tartrate 5 Mg/5 Ml Inj IV 5 mg Q6HR PATSY Administration Multi-Ingred Cream/Lotion/Oil/Oint 1 applic 09/20/20 22:59 Mineral Oil/Petrolatum, White Ophth Oint 3.5 Gm OU Q4HR PRN Dry Eye(s) Ondansetron HCl 4 mg 09/21/20 01:24 Ondansetron 4 Mg/2 Ml Inj IV Q8H PRN Nausea And Vomiting Simple Syrup 15 ml 09/25/20 14:22 Simple Syrup 15 Ml FEEDTUBE PRN PRN Hypoglycemia Simple Syrup 30 ml 09/25/20 14:22 Simple Syrup 15 Ml FEEDTUBE PRN PRN Hypoglycemia Sodium Bicarbonate 325 mg 09/25/20 14:22 Sodium Bicarbonate 325 Mg Tab FEEDTUBE PRN PRN For Clogged Feeding Tube Sodium Chloride 10 ml 09/21/20 10:00 09/26/20 09:33 Sodium Chloride 0.9% 10 Ml Flush Syringe IV 10 ml BID PATSY Administration Sodium Chloride 10 ml 09/21/20 01:24 09/24/20 18:21 Sodium Chloride 0.9% 10 Ml Flush Syringe IV 10 ml PRN PRN Administration LINE FLUSH
--- NOTE | 2020-09-26 12:21 | Progress Note ---
Assessment and Plan Cultures: SARS-CoV-2 PCR negative. Sputum culture 09/20/2020 upper respiratory misha. Urine culture 09/20/2020 10-100,000 mixed colonies. Blood culture 09/21/2020 no growth today. Blood culture 09/25/2020 pending Assessment: 50-year-old male with history of hypertension, admitted on 09/20/2020 secondary to syncope followed up by outside cardiac arrest: #SIRS rule out sepsis: remains with high fever; likely secondary to [id number]-hospital cardiac arrest +/-UTI. Chest x-ray without evidence of consolidation. Blood culture so far negative. Persistent fever likely secondary to central fever from anoxic brain injury. #UTI: Urine culture grew mixed bacteria. Completed Rocephin for 5 days. #Tabyofz-rd-myj-hospital cardiac arrest: per cards #Acute encephalopathy: Likely secondary to anoxic brain injury. Brain MRI shows diffuse cerebral cortical restricted diffuse edema consistent with anoxic brain. #Cardiomyopathy: Transthoracic echo shows severely dilated left ventricle, the ventricle systolic function severely decreased, borderline concentric left ventricle hypertrophy, severe global hypokinesis of the left ventricle, LVEF 10 to 15%, mild MR. Cardiology on board. #JAMEY: Worsening. #Transaminitis: Likely due to sepsis. Recommendations -start vancomycin and cefepime for now renally adjusted -repeat CXR/UA -Follow-up repeat blood cultures and respiratory cultures -MRSA PCR pending -Completed Rocephin for 5 days for UTI. -Monitor fever likely central fever -Neuro consult Guarded prognosis Will follow. Briseida Antonio MD Infectious Diseases [employer] [facility] [phone] Subjective Date of service: 09/26/20 Principal diagnosis: Acute respiratory failure Interval history: Remains unresponsive, intubated, with high fever 102 Objective - Exam Narrative Exam: General appearance: Intubated unresponsive Eyes: anicteric sclerae, moist conjunctivae; no lid-lag; PERRLA HENT: Normocephalic, Atraumatic; normal external ears, nares open, oropharynx endotracheal tube in place Neck: supple, tracheal midline, no JVD Lungs: Bilateral rhonchi CV: RRR no murmur Abdomen: Soft, non-tender; no masses or hepatosplenomegaly Extremities: no edema, no cyanosis Skin: No rash. Psych: Unresponsive Neuro: Unresponsive - Constitutional Vitals: Vital Signs Temp Pulse Resp BP Pulse Ox 100.7 F H 119 H 33 H 120/82 96 09/26/20 12:04 09/26/20 11:24 09/26/20 08:30 09/26/20 11:24 09/26/20 11:24 Temperature -Last 24 Hours Temperature 100.7 F Temperature 102.6 F Temperature 102.0 F Temperature 102.7 F Temperature 102.7 F Temperature 102.8 F Temperature 100.7 F - Labs CBC & Chem 7: 09/26/20 04:17 09/26/20 04:17 Labs: Abnormal lab results 09/25/20 09/25/20 09/25/20 Range/Units 14:50 18:02 19:45 WBC (4.5-11.0) K/mm3 RDW (13.2-15.2) % Plt Count (140-440) K/mm3 Lymph % (Auto) (13.4-35.0) % [place]gle % (Auto) (0.0-7.3) % Lymph # (Auto) (1.2-5.4) K/mm3 [place]gle # (Auto) (0.0-0.8) K/mm3 Seg Neutrophils % (40.0-70.0) % Seg Neutrophils # (1.8-7.7) K/mm3 ABG pH (7.320-7.450) POC ABG pCO2 (32.0-48.0) mmHg POC ABG pO2 (83-108) mmHg ABG Oxyhemoglobin (94-98) ABG Sodium (136.0-145.0) mmol/L ABG Chloride (98-107) mmol/L ABG Glucose (65-95) mg/dL Sodium 160 H 162 H* (137-145) mmol/L Chloride (98-107) mmol/L BUN (9-20) mg/dL Creatinine (0.8-1.3) mg/dL Glucose (75-100) mg/dL POC Glucose 113 H (70-105) mg/dL Phosphorus (2.5-4.5) mg/dL Arterial Blood Glucose (65-95) mg/dL 09/25/20 09/25/20 09/26/20 Range/Units 23:02 23:17 03:30 WBC (4.5-11.0) K/mm3 RDW (13.2-15.2) % Plt Count (140-440) K/mm3 Lymph % (Auto) (13.4-35.0) % [place]gle % (Auto) (0.0-7.3) % Lymph # (Auto) (1.2-5.4) K/mm3 [place]gle # (Auto) (0.0-0.8) K/mm3 Seg Neutrophils % (40.0-70.0) % Seg Neutrophils # (1.8-7.7) K/mm3 ABG pH 7.472 H (7.320-7.450) POC ABG pCO2 31.1 L (32.0-48.0) mmHg POC ABG pO2 56.5 L (83-108) mmHg ABG Oxyhemoglobin 91.3 L (94-98) ABG Sodium 159.9 H (136.0-145.0) mmol/L ABG Chloride 129.0 H (98-107) mmol/L ABG Glucose 135 H (65-95) mg/dL Sodium 160 H (137-145) mmol/L Chloride (98-107) mmol/L BUN (9-20) mg/dL Creatinine (0.8-1.3) mg/dL Glucose (75-100) mg/dL POC Glucose 119 H (70-105) mg/dL Phosphorus (2.5-4.5) mg/dL Arterial Blood Glucose 135 H (65-95) mg/dL 09/26/20 09/26/20 09/26/20 Range/Units 04:17 04:17 05:34 WBC 13.9 H (4.5-11.0) K/mm3 RDW 16.2 H (13.2-15.2) % Plt Count 133 L (140-440) K/mm3 Lymph % (Auto) 7.4 L (13.4-35.0) % [place]gle % (Auto) 11.2 H (0.0-7.3) % Lymph # (Auto) 1.0 L (1.2-5.4) K/mm3 [place] # (Auto) 1.6 H (0.0-0.8) K/mm3 Seg Neutrophils % 81.0 H (40.0-70.0) % Seg Neutrophils # 11.3 H (1.8-7.7) K/mm3 ABG pH (7.320-7.450) POC ABG pCO2 (32.0-48.0) mmHg POC ABG pO2 (83-108) mmHg ABG Oxyhemoglobin (94-98) ABG Sodium (136.0-145.0) mmol/L ABG Chloride (98-107) mmol/L ABG Glucose (65-95) mg/dL Sodium 162 H* (137-145) mmol/L Chloride 128.4 H (98-107) mmol/L BUN 56 H (9-20) mg/dL Creatinine 2.5 H (0.8-1.3) mg/dL Glucose 128 H (75-100) mg/dL POC Glucose 135 H (70-105) mg/dL Phosphorus 2.00 L D (2.5-4.5) mg/dL Arterial Blood Glucose (65-95) mg/dL
--- NOTE | 2020-09-26 13:14 | Progress Note ---
Assessment and Plan Assessment and plan: This is a 50-year-old male with heart failure and hypertension who presents to the emergency department on 09/21 with cardiac arrest after syncopal episode about 45 minutes prior to arrival to the emergency department. Upon arrival to the emergency department patient was found to be hypotensive and subsequently started on pressors with significant improvement in his blood pressure. Work-up in the emergency department reveals lactic acidosis, initial troponin within normal limits however subsequent troponins were elevated, no obvious ischemic changes on EKG, UDS positive for marijuana, urinalysis significant for urinary tract infection, BUN/creatinine slightly elevated 26/21. CXR showed severe ca rdiomegaly with mild interstitial pulmonary edema. Patient was admitted to the hospital service with consults to CCM, cardiology and nephrology s/p cardiac arrest, UTI, JAMEY, lactic acidosis and hypotension. MRI reviewed concerning for anoxic encephalopathy -CCM, cardiology, nephrology consulted, appreciate recommendations -s/p vasopressor support with Levophed, phenyl epinephrine, epinephrine -COVID 19 pcr (-) -Fentayl gtt -TF -09/20 CXR shows cardiomegaly -09/21 echocardiogram shows severely dilated left ventricle, the ventricle systolic function severely decreased, borderline concentric left ventricle hypertrophy, severe global hypokinesis of the left ventricle, LVEF 10 to 15%, mild MR, trace TR, RVSP is normal at 12 mmHg, trace pericardial effusion. -Accu-Cheks every 6 hours, SSI -Renal ultrasound pending -09/21 FENa calculated at 3.14 indicating ATN -09/21 CT head shows motion degradation of the image quality despite repeat imaging. However, there appears to be mild cerebral white matter disease as described without CT evidence of acute intracranial hemorrhage. -09/23 CT head shows loss of reyna-white differentiation diffusely likely due to diffuse cerebral edema, interval decrease in ventricular size size diffusely likely due to compression however no herniation identified, suspect developing infarct in the right occipital region without hemorrhage. Evaluation limited by artifact -09/23 MRI brain without contrast pending -09/23 MRA/MRV head without contrast pending -09/23 Bilateral carotid ultrasound pending -Hemoglobin A1c, hepatic panel pending -Trend CBC, BMP 09/22: Patient was started on a fentanyl drip and propofol drip was increased. At the time of my examination patient is on CMV tidal and 450, rate 20, PEEP 6 and FiO2 25%. Patient had a T-max of 101.9 overnight. Today we removed Park catheter and femoral CVL. Plan to obtain PICC/PIV. Started TF today. 09/23: CT head obtained yesterday shows diffuse cerebral edema and a new suspected developing infarct in the right occipital region. Patient has worsening renal function today and hyperphosphatemia. The time of my examination patient was on CMV tidal 450, rate 20, PEEP 625% FiO2 and sedated on fentanyl at 2 mcg. CCM to update family on the findings. CVA work-up ordered. Renal function worsened today. 09/24: Patient has hyponatremia, hypochloremia, metabolic acidosis, slightly improved renal function. CCM discussion with family today regarding prognosis. Remains sedated on fentanyl CMV TV 450, R 20, PEEP 6, FiO2 25%. Park was replaced for retention. 09/25: Mr. Avelar unfortunately remains unresponsive no pupillary reflex appreciated. Still with fever. Start empiric antibiotics and obtain cultures. Although fever could be central. Continue ventilatory support. MRI is concerning for anoxic encephalopathy with global edema. Patient with severe hypernatremia. Will obtain neurosurgery evaluation and also ID evaluation. Free water has been started by nephrology. Cardiology input appreciated. 09/26. No indication for head CT at this time as renal is improving per disaster recovery coordinator. ID input appreciated likely underlying sepsis. Antibiotics as recommended source felt to be secondary to UTI as chest x-ray is without evidence of consolidation. Repeat chest x-ray and urine analysis is pending work cultures are being followed. MRSA PCR is also pending. Patient not on vancomycin and cefepime renally adjusted. I had extensive discussion with the daughter and the father yesterday. Later in the day the patient was made a DNR. Advance care planning time 35 minutes S/p cardiac arrest Acute hypoxic respiratory failure Acute toxic and anoxic metabolic encephalopathy Acute kidney injury with underlying ATN Sepsis Cardiomyopathy left ejection fraction of 10 to 15% Acute cystitis Leukocytosis Coagulopathic Transaminitis likely secondary to sepsis Hyperchloremia Metabolic acidosis Lactic acidosis Hypertension Prognosis is poor GI/DVT prophylaxis: PPI, heparin subcu, SCDs to bilateral lower extremities while in bed Disposition: ICU The high probability of a clinically significant, sudden or life threatening deterioration of the [multi] system(s) required my full and direct attention, intervention and personal management. The aggregate critical care time was [35] minutes. This time is in addition to time spent performing reported procedures but includes the following: [x] Data Review and interpretation [x] Patient assessment and monitoring of vital signs [x] Documentation [x] Medication orders and management History Interval history: Patient seen and examined nonresponsive, tachycardia persist remains on full v entilatory support Hospitalist Physical - Physical exam Narrative exam: General appearance: Present: other (Unresponsive, on the vent) - EENT Eyes: Absent: PERRL ENT: clear oral mucosa - Neck Neck: Absent: masses or JVD, cervical LAD - Respiratory Respiratory effort: normal Respiratory: bilateral: CTA - Cardiovascular Rhythm: regular Heart Sounds: Present: S1 & S2. Absent: systolic murmur, diastolic murmur - Extremities Extremities: no ischemia, pulses intact, pulses symmetrical, No edema, normal color Peripheral Pulses: within normal limits - Abdominal General gastrointestinal: soft, non-tender, non-distended, normal bowel sounds - Integumentary Integumentary: Present: warm, dry - Neurologic Neurologic: other (no response to painful stimuli, no cough/gag reflex) - Allied Health Allied health notes reviewed: nursing, RT - Constitutional Vitals: Temp Pulse Resp BP Pulse Ox 100.7 F H 119 H 33 H 122/85 96 09/26/20 12:04 09/26/20 12:54 09/26/20 08:30 09/26/20 12:54 09/26/20 11:24 General appearance: Present: other (Unresponsive, on the vent) HEART Score - HEART Score Troponin: Troponin T 1.880 ng/mL (0.00-0.029) H* D 09/21/20 04:34 Results - Labs CBC & Chem 7: 09/26/20 04:17 09/26/20 12:12 Labs: Laboratory Last Values WBC 13.9 K/mm3 (4.5-11.0) H 09/26/20 04:17 RBC 4.49 M/mm3 (3.65-5.03) 09/26/20 04:17 Hgb 13.8 gm/dl (11.8-15.2) 09/26/20 04:17 Hct 42.0 % (35.5-45.6) 09/26/20 04:17 MCV 93 fl (84-94) 09/26/20 04:17 MCH 31 pg (28-32) 09/26/20 04:17 MCHC 33 % (32-34) 09/26/20 04:17 RDW 16.2 % (13.2-15.2) H 09/26/20 04:17 Plt Count 133 K/mm3 (140-440) L 09/26/20 04:17 Lymph % (Auto) 7.4 % (13.4-35.0) L 09/26/20 04:17 [place] % (Auto) 11.2 % (0.0-7.3) H 09/26/20 04:17 Eos % (Auto) 0.1 % (0.0-4.3) 09/26/20 04:17 Baso % (Auto) 0.3 % (0.0-1.8) 09/26/20 04:17 Lymph # (Auto) 1.0 K/mm3 (1.2-5.4) L 09/26/20 04:17 Curry # (Auto) 1.6 K/mm3 (0.0-0.8) H 09/26/20 04:17 Eos # (Auto) 0.0 K/mm3 (0.0-0.4) 09/26/20 04:17 Baso # (Auto) 0.0 K/mm3 (0.0-0.1) 09/26/20 04:17 Add Manual Diff Complete 09/20/20 23:02 Total Counted 100 09/20/20 23:02 Seg Neutrophils % 81.0 % (40.0-70.0) H 09/26/20 04:17 Seg Neuts % (Manual) 34.0 % (40.0-70.0) L 09/20/20 23:02 Lymphocytes % (Manual) 57.0 % (13.4-35.0) H 09/20/20 23:02 Monocytes % (Manual) 6.0 % (0.0-7.3) 09/20/20 23:02 Eosinophils % (Manual) 2.0 % (0.0-4.3) 09/20/20 23:02 Basophils % (Manual) 1.0 % (0.0-1.8) 09/20/20 23:02 Nucleated RBC % Not Reportable 09/20/20 23:02 Seg Neutrophils # 11.3 K/mm3 (1.8-7.7) H 09/26/20 04:17 Seg Neutrophils # Man 1.9 K/mm3 (1.8-7.7) 09/20/20 23:02 Band Neutrophils # 0.0 K/mm3 09/20/20 23:02 Lymphocytes # (Manual) 3.2 K/mm3 (1.2-5.4) 09/20/20 23:02 Abs React Lymphs (Man) 0.0 K/mm3 09/20/20 23:02 Monocytes # (Manual) 0.3 K/mm3 (0.0-0.8) 09/20/20 23:02 Eosinophils # (Manual) 0.1 K/mm3 (0.0-0.4) 09/20/20 23:02 Basophils # (Manual) 0.1 K/mm3 (0.0-0.1) 09/20/20 23:02 Metamyelocytes # 0.0 K/mm3 09/20/20 23:02 Myelocytes # 0.0 K/mm3 09/20/20 23:02 Promyelocytes # 0.0 K/mm3 09/20/20 23:02 Blast Cells # 0.0 K/mm3 09/20/20 23:02 WBC Morphology Not Reportable 09/20/20 23:02 Hypersegmented Neuts Not Reportable 09/20/20 23:02 Hyposegmented Neuts Not Reportable 09/20/20 23:02 Hypogranular Neuts Not Reportable 09/20/20 23:02 Smudge Cells Not Reportable 09/20/20 23:02 Toxic Granulation Not Reportable 09/20/20 23:02 Toxic Vacuolation Not Reportable 09/20/20 23:02 Dohle Bodies Not Reportable 09/20/20 23:02 Pelger-Huet Anomaly Not Reportable 09/20/20 23:02 Santosh Rods Not Reportable 09/20/20 23:02 Platelet Estimate Not Reportable 09/20/20 23:02 Clumped Platelets Not Reportable 09/20/20 23:02 Plt Clumps, EDTA Not Reportable 09/20/20 23:02 Large Platelets Not Reportable 09/20/20 23:02 Giant Platelets Not Reportable 09/20/20 23:02 Platelet Satelliting Not Reportable 09/20/20 23:02 Plt Morphology Comment Not Reportable 09/20/20 23:02 RBC Morphology Normal 09/20/20 23:02 Dimorphic RBCs Not Reportable 09/20/20 23:02 Polychromasia Not Reportable 09/20/20 23:02 Hypochromasia Not Reportable 09/20/20 23:02 Poikilocytosis Not Reportable 09/20/20 23:02 Anisocytosis Not Reportable 09/20/20 23:02 Microcytosis Not Reportable 09/20/20 23:02 Macrocytosis Not Reportable 09/20/20 23:02 Spherocytes Not Reportable 09/20/20 23:02 Pappenheimer Bodies Not Reportable 09/20/20 23:02 Sickle Cells Not Reportable 09/20/20 23:02 Target Cells Not Reportable 09/20/20 23:02 Tear Drop Cells Not Reportable 09/20/20 23:02 Ovalocytes Not Reportable 09/20/20 23:02 Helmet Cells Not Reportable 09/20/20 23:02 [place] Bodies Not Reportable 09/20/20 23:02 [place] Rings Not Reportable 09/20/20 23:02 Melly Cells Not Reportable 09/20/20 23:02 Bite Cells Not Reportable 09/20/20 23:02 Crenated Cell Not Reportable 09/20/20 23:02 Elliptocytes Not Reportable 09/20/20 23:02 Acanthocytes (Spur) Not Reportable 09/20/20 23:02 Rouleaux Not Reportable 09/20/20 23:02 Hemoglobin C Crystals Not Reportable 09/20/20 23:02 Schistocytes Not Reportable 09/20/20 23:02 Malaria parasites Not Reportable 09/20/20 23:02 Eduardo Bodies Not Reportable 09/20/20 23:02 Hem Pathologist Commnt No 09/20/20 23:02 PT 15.5 Sec. (12.2-14.9) H 09/22/20 08:26 INR 1.25 (0.87-1.13) H 09/22/20 08:26 APTT 30.6 Sec. (24.2-36.6) 09/21/20 10:08 ABG pH 7.472 (7.320-7.450) H 09/26/20 03:30 POC ABG pCO2 31.1 mmHg (32.0-48.0) L 09/26/20 03:30 ABG pCO2 40.5 mm Hg 09/21/20 02:15 POC ABG pO2 56.5 mmHg (83-108) L 09/26/20 03:30 ABG pO2 244.1 mm Hg (80.0-90.0) H 09/21/20 02:15 POC ABG HCO3 22.2 09/26/20 03:30 ABG HCO3 17.7 mmol/L (20.0-26.0) L 09/21/20 02:15 ABG O2 Saturation 92.5 (0-100) 09/26/20 03:30 ABG O2 Content 24.2 (0.0-44) 09/21/20 02:15 POC ABG Base Excess -0.4 09/26/20 03:30 ABG Base Excess -8.8 mmol/L (-2.0-3.0) L 09/21/20 02:15 ABG Hemoglobin 14.8 (12.0-17.5) 09/26/20 03:30 ABG Oxyhemoglobin 91.3 (94-98) L 09/26/20 03:30 ABG Carboxyhemoglobin 1.3 % (0.0-5.0) 09/21/20 02:15 ABG Methemoglobin 0.3 (0.0-1.5) 09/26/20 03:30 ABG Sodium 159.9 mmol/L (136.0-145.0) H 09/26/20 03:30 ABG Potassium 3.7 mmol/L (3.40-4.50) 09/26/20 03:30 ABG Chloride 129.0 mmol/L (98-107) H 09/26/20 03:30 ABG Glucose 135 mg/dL (65-95) H 09/26/20 03:30 Oxyhemoglobin 97.4 % (95.0-99.0) 09/21/20 02:15 Carboxyhemoglobin 1.0 (0.5-1.5) 09/26/20 03:30 FiO2 21 % 09/21/20 02:15 FiO2 % 25.0 09/26/20 03:30 Sodium 162 mmol/L (137-145) H* 09/26/20 04:17 Potassium 3.8 mmol/L (3.6-5.0) 09/26/20 04:17 Chloride 128.4 mmol/L (98-107) H 09/26/20 04:17 Carbon Dioxide 24 mmol/L (22-30) 09/26/20 04:17 Anion Gap 13 mmol/L 09/26/20 04:17 BUN 56 mg/dL (9-20) H 09/26/20 04:17 Creatinine 2.5 mg/dL (0.8-1.3) H 09/26/20 04:17 Estimated GFR 34 ml/min 09/26/20 04:17 BUN/Creatinine Ratio 22 % 09/26/20 04:17 Glucose 128 mg/dL (75-100) H 09/26/20 04:17 POC Glucose 141 mg/dL (70-105) H 09/26/20 11:44 Lactic Acid 1.00 mmol/L (0.7-2.0) 09/24/20 04:00 Calcium 8.7 mg/dL (8.4-10.2) 09/26/20 04:17 Phosphorus 2.00 mg/dL (2.5-4.5) L D 09/26/20 04:17 Total Bilirubin 0.30 mg/dL (0.1-1.2) 09/20/20 23:02 AST 59 units/L (5-40) H 09/20/20 23:02 ALT 30 units/L (7-56) 09/20/20 23:02 Alkaline Phosphatase 88 units/L (35-129) 09/20/20 23:02 Total Creatine Kinase 3606 units/L (55-170) H 09/21/20 15:54 Troponin T 1.880 ng/mL (0.00-0.029) H* D 09/21/20 04:34 Total Protein 7.0 g/dL (6.3-8.2) 09/20/20 23:02 Albumin 4.1 g/dL (3.9-5) 09/20/20 23:02 Albumin/Globulin Ratio 1.4 % 09/20/20 23:02 Triglycerides 43 mg/dL (2-149) 09/21/20 02:01 Cholesterol 152 mg/dL (50-199) 09/21/20 02:01 LDL Cholesterol Direct 92 mg/dL (50-130) 09/21/20 02:01 HDL Cholesterol 60 mg/dL (40-59) H 09/21/20 02:01 Cholesterol/HDL Ratio 2.53 % 09/21/20 02:01 Arterial Blood Glucose 135 mg/dL (65-95) H 09/26/20 03:30 Arterial Blood Ionized Calcium 4.9 mg/dL (4.6-5.3) 09/26/20 03:30 Urine Color Yellow (Yellow) 09/21/20 14:27 Urine Turbidity Slightly-cloudy (Clear) 09/21/20 14:27 Urine pH 5.0 (5.0-7.0) 09/21/20 14:27 Ur Specific [place] 1.011 (1.003-1.030) 09/21/20 14:27 Urine Protein 100 mg/dl mg/dL (Negative) 09/21/20 14:27 Urine Glucose (UA) 50 mg/dL (Negative) 09/21/20 14:27 Urine Ketones Neg mg/dL (Negative) 09/21/20 14:27 Urine Blood Lg (Negative) 09/21/20 14:27 Urine Nitrite Neg (Negative) 09/21/20 14:27 Urine Bilirubin Neg (Negative) 09/21/20 14:27 Urine Urobilinogen < 2.0 mg/dL (<2.0) 09/21/20 14:27 Ur Leukocyte Esterase Neg (Negative) 09/21/20 14:27 Urine WBC (Auto) 12.0 /HPF (0.0-6.0) H 09/21/20 14:27 Urine RBC (Auto) 48.0 /HPF (0.0-6.0) 09/21/20 14:27 U Epithel Cells (Auto) < 1.0 /HPF (0-13.0) 09/21/20 14:27 Urine Bacteria (Auto) 2+ /HPF (Negative) 09/21/20 14:27 Urine Mucus Few /HPF 09/21/20 14:27 Urine Yeast (Budding) 2+ /HPF 09/20/20 23:35 Urine Sperm 1+ /HPF (CARPENTER HELPER) 09/20/20 23:35 Urine Creatinine 60.4 mg/dL (0.1-20.0) H 09/21/20 14:27 Urine Sodium 108 mmol/L 09/21/20 14:27 Urine Urea Nitrogen 305 09/21/20 14:27 Urine Opiates Screen Presumptive negative 09/20/20 Unknown Urine Methadone Screen Presumptive negative 09/20/20 Unknown Ur Barbiturates Screen Presumptive negative 09/20/20 Unknown Ur Phencyclidine Scrn Presumptive negative 09/20/20 Unknown Ur Amphetamines Screen Presumptive negative 09/20/20 Unknown U Benzodiazepines Scrn Presumptive negative 09/20/20 Unknown Urine Cocaine Screen Presumptive negative 09/20/20 Unknown U Marijuana (THC) Screen Presumptive positive 09/20/20 Unknown Drugs of Abuse Note Disclamer 09/20/20 Unknown Coronavirus (PCR) Negative (Negative) 09/21/20 10:13 Microbiology: Microbiology 09/21/20 02:01 Peripheral/Venous Blood Culture - Final NO GROWTH AFTER 5 DAYS 09/21/20 02:03 Peripheral/Venous Blood Culture - Final NO GROWTH AFTER 5 DAYS 09/25/20 14:50 Peripheral/Venous Blood Culture - Preliminary Culture in Progress 09/25/20 14:50 Peripheral/Venous Blood Culture - Preliminary Culture in Progress Park/IV: Voiding Method Indwelling Catheter Active Medications - Current Medications Current Medications: Generic Name Dose Route Start Last Admin Trade Name Freq PRN Reason Stop Dose Admin Acetaminophen 650 mg 09/21/20 15:51 09/26/20 09:34 Acetaminophen 325 Mg/10.15 Ml Oral Liqd Unit Dose FEEDTUBE 650 mg Q6H PRN Administration Pain, Mild (1-3) Lipase/Protease/Amylase 1 each 09/25/20 14:22 Lipase 10,500/Protease 25,000/Amylase 43,750 (Units) Dr Greer FEEDTUBE PRN PRN For Clogged Feeding Tube Aspirin 325 mg 09/21/20 16:00 09/26/20 09:32 Aspirin 325 Mg Tab PO 325 mg QDAY PATSY Administration Atorvastatin Calcium 40 mg 09/23/20 22:00 09/25/20 21:55 Atorvastatin 40 Mg Tab PO 40 mg QHS PATSY Administration Famotidine 20 mg 09/25/20 10:00 09/26/20 09:32 Famotidine 20 Mg Tab PO 20 mg DAILY PATSY Administration Heparin Sodium (Porcine) 5,000 unit 09/21/20 22:00 09/26/20 09:32 Heparin 5,000 Unit/1 Ml Vial SUB-Q 5,000 unit Q12HR PATSY Administration Hydralazine HCl 5 mg 09/23/20 14:00 09/26/20 09:31 Hydralazine 20 Mg/1 Ml Inj IV 5 mg Q4HR PATSY Administration Hydrophilic Ointment 1 applic 09/20/20 22:59 Lip Therapy Vaseline TP Q2HR PRN Dry Lips Norepinephrine 4 mg in 250 mls @ 7.5 mls/hr 09/21/20 05:00 Levophed Drip 4 Mg/Ns 250 Ml IV TITR PATSY Protocol 2 MCG/MIN Fentanyl Citrate 2,000 mcg in 100 mls @ 5.105 mls/hr 09/22/20 11:30 09/25/20 18:17 Fentanyl Drip Premix IV 0 mcg/kg/hr TITR PATSY 0 mls/hr Titration Protocol 1 MCG/KG/HR Dextrose 1,000 mls @ 50 mls/hr 09/26/20 13:00 D5w IV DIRECT PATSY Cefepime HCl 2 gm in 100 mls @ 200 mls/hr 09/26/20 13:00 Cefepime/Ns 2 Gm/100 Ml IV Q12HR [facility] Protocol Metoprolol Tartrate 5 mg 09/23/20 12:12 09/26/20 12:54 Metoprolol Tartrate 5 Mg/5 Ml Inj IV 5 mg Q6HR [facility] Administration Multi-Ingred Cream/Lotion/Oil/Oint 1 applic 09/20/20 22:59 Mineral Oil/Petrolatum, White Ophth Oint 3.5 Gm OU Q4HR PRN Dry Eye(s) Ondansetron HCl 4 mg 09/21/20 01:24 Ondansetron 4 Mg/2 Ml Inj IV Q8H PRN Nausea And Vomiting Simple Syrup 15 ml 09/25/20 14:22 Simple Syrup 15 Ml FEEDTUBE PRN PRN Hypoglycemia Simple Syrup 30 ml 09/25/20 14:22 Simple Syrup 15 Ml FEEDTUBE PRN PRN Hypoglycemia Sodium Bicarbonate 325 mg 09/25/20 14:22 Sodium Bicarbonate 325 Mg Tab FEEDTUBE PRN PRN For Clogged Feeding Tube Sodium Chloride 10 ml 09/21/20 10:00 09/26/20 09:33 Sodium Chloride 0.9% 10 Ml Flush Syringe IV 10 ml BID PATSY Administration Sodium Chloride 10 ml 09/21/20 01:24 09/24/20 18:21 Sodium Chloride 0.9% 10 Ml Flush Syringe IV 10 ml PRN PRN Administration LINE FLUSH Nutrition/Malnutrition Assess - Dietary Evaluation Nutrition/Malnutrition Findings: Nutrition Notes Start: 09/21/20 08:17 Freq: Status: Active Protocol: Document 09/25/20 14:03 LEXY (Rec: 09/25/20 14:22 LEXY [email or web address]) Nutrition Notes Initial or Follow up Reassessment Current Diagnosis Acute Kidney Injury, Respiratory Failure Other Pertinent Diagnosis s/p cardiopulmonary arrest, UTI, anoxic encephalopathy with global edema Current Diet TF - Vital AF 1.2 at 45ml/hr Labs/Tests Na 160 BUN 54 Cr 2.8 Pertinent Medications Reviewed (pt no longer on propofol) Height 6 ft Weight 102.1 kg [place] Body Weight (kg) 80.90 BMI 30.5 Weight Status Obese Subjective/Other Information Spoke with RN via phone. Pt remains on vent support. Per nephrology, no need for HD at this time. ordered 300ml water flush q4h. Pt tolerating TF at goal rate. Percent of energy/protein needs met: 71% energy 50% pro Burn Absent Trauma Absent #1 Nutrition Diagnosis Inadequate oral intake Diagnosis Progress(for reassessment Continues documentation) Is patient on ventilator? Yes Is Patient Ambulatory and/or Out of Bed No REE-([facility]-confined to bed) 2318.184 Kcal/Kg value to use for calculation 18 Approximate Energy Requirements Using 1838 kcal/Kg Calculation Used for Recommendations Kcal/kg Additional Notes Pro needs >2g/kg IBW: >162g/ day Fluid needs 1ml/kcal Nutrition Intervention Nutrition Support: Increase goal rate to Vital AF 1.2 at 65ml/hr with 300ml water flush q4h until hypernatremia resolves. Once hypernatremia resolves, continue free water flush of 100 ml q4h. Kcal 1,872 Protein (gm) 117 Fluid (mL) 1,265 Goal #1 TF tolerance Goal #2 TF to meet needs as best possible Follow-Up By: 09/27/20 Additional Comments F/U: TF goal rate increase, tolerance, vent status, Na lab /water flushes
[2020-09-26] MEDS: DEXTROSE 5% IN WATER 1,000 ML IV SCH (13:33)
[2020-09-26] MEDS: CEFEPIME/NS 2 GM/100 ML 2 GM/100 ML BAG IV SCH ×2 (13:37→21:26)
[2020-09-26] MEDS ORDERED: VANCOMYCIN PHARMACY TO DOSE IV SCH (14:00)
[2020-09-26] MEDS ORDERED: VANCOMYCIN 1,500 MG in SODIUM CHLORIDE 0.9% 500 ML 500 ML IV ONE (14:00)
[2020-09-26 14:10] LABS: Bilirubin,Urine NEG (Negative); Blood,Urine MOD (Negative); Color,Urine Yellow (Yellow); Mucus,Urine 1+ /HPF; Sperm,Urine FEW /HPF (NP); Urobilinogen,Urine < 2.0 mg/dL (<2.0)
[2020-09-26 14:27] LABS: Calcium 8.4 mg/dL (8.4-10.2)
--- NOTE | 2020-09-26 17:25 | Vascular Lab Report ---
DUPLEX DOPPLER ULTRASOUND CAROTID, BILATERAL INDICATION / CLINICAL INFORMATION: stroke. COMPARISON: None available. FINDINGS: RIGHT CAROTID: - PLAQUE ESTIMATE (%): < 50% - CCA velocity: 91 cm/sec. - ICA peak systolic velocity: 86 cm/sec. - ICA/CCA PSV Ratio: 0.9 Right Vertebral Artery: Antegrade flow. LEFT CAROTID: - PLAQUE ESTIMATE: < 50% - CCA velocity: 114 cm/sec. - ICA peak systolic velocity: 114 cm/sec. - ICA/CCA PSV Ratio: 1.0 Left Vertebral Artery: Antegrade flow. IMPRESSION: 1. Right Internal Carotid Artery: Less than 50% diameter stenosis. 2. Left Internal Carotid Artery: Less than 50% diameter stenosis. Velocity criteria are extrapolated from diameter data as defined by the Society of Radiologists in Ul trasound Consensus Conference, Radiology 2003; 229;340-346. NO STENOSIS (NORMAL) * Plaque = none; ICA PSV < 125 cm/sec; ICA/CCA PSV Ratio < 2.0 <50% STENOSIS * Plaque < 50%; ICA PSV < 125 cm/sec; ICA/CCA PSV Ratio < 2.0 50-69% STENOSIS * Plaque > 50%; ICA PSV = 125-230 cm/sec; ICA/CCA PSV Ratio = 2.0-4.0 >70% BUT <100% STENOSIS * Plaque > 50%; ICA PSV < 230 cm/sec; ICA/CCA PSV Ratio > 4.0 NEAR OCCLUSION * Plaque = visible lumen; ICA PSV = high/low/none; ICA/CCA PSV Ratio = variable TOTAL OCCLUSION * Plaque = no lumen; ICA PSV = none; ICA/CCA PSV Ratio = N/A Signer Name: Gilmar Wilson MD Signed: 09/26/2020 5:20 PM Workstation Name: [id number]
[2020-09-27] MEDS: METOPROLOL TARTRATE 5 MG/5 ML INJ IV SCH ×3 (00:12→14:53)
[2020-09-27 01:01] LABS: Calcium 8.5 mg/dL (8.4-10.2)
[2020-09-27] MEDS: hydrALAZINE 20 MG/1 ML INJ IV SCH ×6 (02:43→21:11)
[2020-09-27 04:57] LABS: Basophils # (Auto) 0.1 K/mm3 (0.0-0.1); Basophils % (Auto) 0.4 % (0.0-1.8); Eosinophils % (Auto) 0.1 % (0.0-4.3); Hemoglobin 12.9 gm/dl (11.8-15.2); Lymphocytes # (Auto) 1.1 K/mm3 (1.2-5.4); Lymphocytes % (Auto) 7.8 % (13.4-35.0); Mean Corpuscular HGB Conc 33 % (32-34); Mean Corpuscular Volume 92 fl (84-94); Monocytes # (Auto) 1.4 K/mm3 (0.0-0.8); Monocytes % (Auto) 10.2 % (0.0-7.3); Platelet Count 123 K/mm3 (140-440); Red Blood Count 4.23 M/mm3 (3.65-5.03); Red Cell Distribution Width 15.9 % (13.2-15.2)
[2020-09-27 05:23] LABS: Calcium 8.3 mg/dL (8.4-10.2)
[2020-09-27] MEDS: CEFEPIME/NS 2 GM/100 ML 2 GM/100 ML BAG IV SCH ×2 (09:25→21:12)
[2020-09-27] MEDS: FAMOTIDINE 20 MG TAB PO SCH (09:25)
[2020-09-27] MEDS: ASPIRIN 325 MG TAB PO SCH (09:25)
[2020-09-27] MEDS: HEPARIN 5,000 UNIT/1 ML VIAL SUB-Q SCH ×2 (09:26→21:12)
[2020-09-27] MEDS: DEXTROSE 5% IN WATER 1,000 ML IV SCH (09:56)
[2020-09-27 10:44] LABS: Calcium 8.5 mg/dL (8.4-10.2)
--- NOTE | 2020-09-27 10:59 | Progress Note ---
Assessment and Plan - Patient Problems (1) Acute anoxic encephalopathy Current Visit: Yes Status: Acute (2) Fever Current Visit: Yes Status: Acute (3) Hypernatremia Current Visit: Yes Status: Acute (4) Acute respiratory failure Current Visit: Yes Status: Acute (5) Cardiopulmonary arrest Current Visit: Yes Status: Acute (6) Renal failure Current Visit: Yes Status: Acute Qualifiers: Renal failure chronicity: acute Acute renal failure type: unspecified Qualified Code(s): N17.9 - Acute kidney failure, unspecified Subjective Principal diagnosis: Acute respiratory failure Interval history: on cpap Objective Vital Signs - 12hr 09/26/20 09/26/20 09/26/20 23:00 23:30 23:56 Temperature Pulse Rate 112 H 109 H 112 H Pulse Rate [ From Monitor] Respiratory 32 H 33 H Rate Blood Pressure 100/70 109/65 110/75 O2 Sat by Pulse 96 96 96 Oximetry 09/27/20 09/27/20 09/27/20 00:00 00:12 00:30 Temperature 101.7 F H Pulse Rate 112 H 113 H 104 H Pulse Rate [ 112 H From Monitor] Respiratory 31 H 33 H Rate Blood Pressure 110/75 110/75 118/81 O2 Sat by Pulse 97 97 Oximetry 09/27/20 09/27/20 09/27/20 01:00 01:30 02:00 Temperature Pulse Rate 112 H 112 H 114 H Pulse Rate [ From Monitor] Respiratory 29 H 34 H 33 H Rate Blood Pressure 103/75 120/81 116/74 O2 Sat by Pulse 96 96 96 Oximetry 09/27/20 09/27/20 09/27/20 02:30 03:00 03:30 Temperature Pulse Rate 113 H 115 H 111 H Pulse Rate [ From Monitor] Respiratory 32 H 31 H 32 H Rate Blood Pressure 125/81 126/80 123/84 O2 Sat by Pulse 96 96 96 Oximetry 09/27/20 09/27/20 09/27/20 04:00 04:30 05:00 Temperature 102.0 F H Pulse Rate 117 H 112 H 116 H Pulse Rate [ 117 H From Monitor] Respiratory 20 32 H 32 H Rate Blood Pressure 128/86 121/84 118/88 O2 Sat by Pulse 98 97 96 Oximetry 09/27/20 09/27/20 09/27/20 05:19 05:30 06:00 Temperature Pulse Rate 112 H 101 H 105 H Pulse Rate [ From Monitor] Respiratory 19 32 H Rate Blood Pressure 118/88 128/79 129/81 O2 Sat by Pulse 97 96 Oximetry 09/27/20 09/27/20 09/27/20 06:30 07:00 07:30 Temperature 102.7 F H Pulse Rate 104 H 109 H 105 H Pulse Rate [ From Monitor] Respiratory 30 H 31 H 30 H Rate Blood Pressure 121/70 126/78 125/80 O2 Sat by Pulse 96 97 98 Oximetry 09/27/20 09/27/20 09/27/20 08:00 08:30 09:00 Temperature Pulse Rate 108 H 107 H 112 H Pulse Rate [ From Monitor] Respiratory 28 H 28 H 30 H Rate Blood Pressure 114/59 103/64 118/76 O2 Sat by Pulse 96 95 96 Oximetry 09/27/20 09:30 Temperature Pulse Rate 114 H Pulse Rate [ From Monitor] Respiratory 29 H Rate Blood Pressure 115/75 O2 Sat by Pulse 96 Oximetry Constitutional: other (on vent not responsive no sedation) Eyes: non-icteric ENT: other (intubated) Neck: supple Effort: normal Ascultation: Bilateral: clear Percussion: Bilateral: not dull Tactile fremitus: Bilateral: normal Cardiovascular: other (sinus tachycardia) Gastrointestinal: normoactive bowel sounds, soft Integumentary: normal Extremities: no cyanosis, no edema, pink and warm Neurologic: other (comatose/unresponsive) Psychiatric: other (unable to assess) CBC and BMP: 09/27/20 04:40 09/27/20 10:15 ABG, PT/INR, D-dimer: ABG ABG pH 7.439 (7.320-7.450) 09/27/20 03:18 POC ABG pCO2 34.2 mmHg (32.0-48.0) 09/27/20 03:18 ABG pCO2 40.5 mm Hg 09/21/20 02:15 POC ABG pO2 70.0 mmHg (83-108) L 09/27/20 03:18 ABG pO2 244.1 mm Hg (80.0-90.0) H 09/21/20 02:15 POC ABG HCO3 22.7 09/27/20 03:18 ABG O2 Saturation 95.1 (0-100) 09/27/20 03:18 PT/INR, D-dimer PT 15.5 Sec. (12.2-14.9) H 09/22/20 08:26 INR 1.25 (0.87-1.13) H 09/22/20 08:26 Abnormal lab findings: Abnormal Labs 09/20/20 09/20/20 09/20/20 23:02 23:02 23:02 WBC RBC Hgb Hct MCV 96 H RDW 15.8 H Plt Count Lymph % (Auto) [place] % (Auto) Lymph # (Auto) [place] # (Auto) Seg Neutrophils % Seg Neuts % (Manual) 34.0 L Lymphocytes % (Manual) 57.0 H Seg Neutrophils # PT INR 1.14 H ABG pH POC ABG pCO2 POC ABG pO2 ABG pO2 ABG HCO3 ABG O2 Saturation ABG Base Excess ABG Oxyhemoglobin ABG Sodium ABG Potassium ABG Chloride ABG Glucose Sodium Potassium Chloride Carbon Dioxide 21 L BUN 26 H Creatinine 2.1 H Glucose 227 H POC Glucose Lactic Acid Calcium 10.3 H Phosphorus AST 59 H Total Creatine Kinase Troponin T HDL Cholesterol Arterial Blood Glucose Arterial Blood Ionized Calcium Urine WBC (Auto) Urine Creatinine 09/20/20 09/20/20 09/21/20 23:15 23:35 01:20 WBC RBC Hgb Hct MCV RDW Plt Count Lymph % (Auto) [place] % (Auto) Lymph # (Auto) [place] # (Auto) Seg Neutrophils % Seg Neuts % (Manual) Lymphocytes % (Manual) Seg Neutrophils # PT INR ABG pH POC ABG pCO2 POC ABG pO2 ABG pO2 ABG HCO3 ABG O2 Saturation ABG Base Excess ABG Oxyhemoglobin ABG Sodium ABG Potassium ABG Chloride ABG Glucose Sodium Potassium Chloride Carbon Dioxide BUN Creatinine Glucose POC Glucose 197 H Lactic Acid 8.70 H* Calcium Phosphorus AST Total Creatine Kinase Troponin T HDL Cholesterol Arterial Blood Glucose Arterial Blood Ionized Calcium Urine WBC (Auto) 47.0 H Urine Creatinine 09/21/20 09/21/20 09/21/20 02:01 02:15 04:25 WBC RBC Hgb Hct MCV RDW Plt Count Lymph % (Auto) [place] % (Auto) Lymph # (Auto) [place] # (Auto) Seg Neutrophils % Seg Neuts % (Manual) Lymphocytes % (Manual) Seg Neutrophils # PT INR ABG pH 7.258 L POC ABG pCO2 POC ABG pO2 ABG pO2 244.1 H ABG HCO3 17.7 L ABG O2 Saturation 99.4 H ABG Base Excess -8.8 L ABG Oxyhemoglobin ABG Sodium ABG Potassium ABG Chloride ABG Glucose Sodium Potassium Chloride Carbon Dioxide BUN Creatinine Glucose POC Glucose 65 L Lactic Acid Calcium Phosphorus AST Total Creatine Kinase Troponin T 0.865 H* D HDL Cholesterol 60 H Arterial Blood Glucose Arterial Blood Ionized Calcium Urine WBC (Auto) Urine Creatinine 09/21/20 09/21/20 09/21/20 04:34 04:34 07:03 WBC RBC Hgb 16.9 H D Hct 51.3 H D MCV RDW Plt Count Lymph % (Auto) [place] % (Auto) Lymph # (Auto) [place] # (Auto) Seg Neutrophils % Seg Neuts % (Manual) Lymphocytes % (Manual) Seg Neutrophils # PT INR ABG pH POC ABG pCO2 POC ABG pO2 ABG pO2 ABG HCO3 ABG O2 Saturation ABG Base Excess ABG Oxyhemoglobin ABG Sodium ABG Potassium ABG Chloride ABG Glucose Sodium Potassium Chloride Carbon Dioxide BUN Creatinine Glucose POC Glucose Lactic Acid 3.00 H* Calcium Phosphorus AST Total Creatine Kinase Troponin T 1.880 H* D HDL Cholesterol Arterial Blood Glucose Arterial Blood Ionized Calcium Urine WBC (Auto) Urine Creatinine 09/21/20 09/21/20 09/21/20 07:03 07:32 07:53 WBC 19.2 H RBC 5.31 H Hgb 16.0 H Hct 49.0 H MCV RDW 15.7 H Plt Count Lymph % (Auto) [place] % (Auto) Lymph # (Auto) [place] # (Auto) Seg Neutrophils % Seg Neuts % (Manual) Lymphocytes % (Manual) Seg Neutrophils # PT 16.3 H INR 1.31 H ABG pH POC ABG pCO2 POC ABG pO2 ABG pO2 ABG HCO3 ABG O2 Saturation ABG Base Excess ABG Oxyhemoglobin ABG Sodium ABG Potassium ABG Chloride ABG Glucose Sodium Potassium Chloride Carbon Dioxide BUN Creatinine Glucose POC Glucose 60 L Lactic Acid Calcium Phosphorus AST Total Creatine Kinase Troponin T HDL Cholesterol Arterial Blood Glucose Arterial Blood Ionized Calcium Urine WBC (Auto) Urine Creatinine 09/21/20 09/21/20 09/21/20 07:53 09:30 10:08 WBC RBC Hgb Hct MCV RDW Plt Count Lymph % (Auto) [place] % (Auto) Lymph # (Auto) [place] # (Auto) Seg Neutrophils % Seg Neuts % (Manual) Lymphocytes % (Manual) Seg Neutrophils # PT 15.4 H INR 1.24 H ABG pH POC ABG pCO2 POC ABG pO2 ABG pO2 ABG HCO3 ABG O2 Saturation ABG Base Excess ABG Oxyhemoglobin ABG Sodium ABG Potassium ABG Chloride ABG Glucose Sodium 146 H Potassium 3.5 L Chloride 109.6 H Carbon Dioxide 20 L BUN 37 H Creatinine 2.8 H Glucose 127 H POC Glucose Lactic Acid 3.00 H* Calcium Phosphorus AST Total Creatine Kinase Troponin T HDL Cholesterol Arterial Blood Glucose Arterial Blood Ionized Calcium Urine WBC (Auto) Urine Creatinine 09/21/20 09/21/20 09/21/20 10:34 11:22 11:44 WBC RBC Hgb Hct MCV RDW Plt Count Lymph % (Auto) [place] % (Auto) Lymph # (Auto) [place] # (Auto) Seg Neutrophils % Seg Neuts % (Manual) Lymphocytes % (Manual) Seg Neutrophils # PT INR ABG pH POC ABG pCO2 25.9 L POC ABG pO2 196.9 H ABG pO2 ABG HCO3 ABG O2 Saturation ABG Base Excess ABG Oxyhemoglobin 98.4 H ABG Sodium ABG Potassium 3.3 L ABG Chloride 113.0 H ABG Glucose 130 H Sodium Potassium Chloride Carbon Dioxide BUN Creatinine Glucose POC Glucose 126 H 127 H Lactic Acid Calcium Phosphorus AST Total Creatine Kinase Troponin T HDL Cholesterol Arterial Blood Glucose 130 H Arterial Blood Ionized Calcium Urine WBC (Auto) Urine Creatinine 09/21/20 09/21/20 09/21/20 14:27 14:27 15:09 WBC RBC Hgb Hct MCV RDW Plt Count Lymph % (Auto) [place] % (Auto) Lymph # (Auto) [place] # (Auto) Seg Neutrophils % Seg Neuts % (Manual) Lymphocytes % (Manual) Seg Neutrophils # PT INR ABG pH POC ABG pCO2 POC ABG pO2 ABG pO2 ABG HCO3 ABG O2 Saturation ABG Base Excess ABG Oxyhemoglobin ABG Sodium ABG Potassium ABG Chloride ABG Glucose Sodium Potassium Chloride Carbon Dioxide BUN Creatinine Glucose POC Glucose 135 H Lactic Acid Calcium Phosphorus AST Total Creatine Kinase Troponin T HDL Cholesterol Arterial Blood Glucose Arterial Blood Ionized Calcium Urine WBC (Auto) 12.0 H Urine Creatinine 60.4 H 09/21/20 09/21/20 09/21/20 15:54 15:54 16:13 WBC RBC Hgb Hct MCV RDW Plt Count Lymph % (Auto) [place] % (Auto) Lymph # (Auto) [place] # (Auto) Seg Neutrophils % Seg Neuts % (Manual) Lymphocytes % (Manual) Seg Neutrophils # PT INR ABG pH POC ABG pCO2 POC ABG pO2 ABG pO2 ABG HCO3 ABG O2 Saturation ABG Base Excess ABG Oxyhemoglobin ABG Sodium ABG Potassium ABG Chloride ABG Glucose Sodium Potassium Chloride Carbon Dioxide BUN Creatinine Glucose POC Glucose 131 H Lactic Acid 3.60 H* Calcium Phosphorus AST Total Creatine Kinase 3606 H Troponin T HDL Cholesterol Arterial Blood Glucose Arterial Blood Ionized Calcium Urine WBC (Auto) Urine Creatinine 09/21/20 09/21/20 09/21/20 18:02 19:48 20:57 WBC RBC Hgb Hct MCV RDW Plt Count Lymph % (Auto) [place] % (Auto) Lymph # (Auto) [place] # (Auto) Seg Neutrophils % Seg Neuts % (Manual) Lymphocytes % (Manual) Seg Neutrophils # PT INR ABG pH POC ABG pCO2 POC ABG pO2 ABG pO2 ABG HCO3 ABG O2 Saturation ABG Base Excess ABG Oxyhemoglobin ABG Sodium ABG Potassium ABG Chloride ABG Glucose Sodium Potassium Chloride Carbon Dioxide BUN Creatinine Glucose POC Glucose 139 H 184 H 173 H Lactic Acid Calcium Phosphorus AST Total Creatine Kinase Troponin T HDL Cholesterol Arterial Blood Glucose Arterial Blood Ionized Calcium Urine WBC (Auto) Urine Creatinine 09/21/20 09/21/20 09/21/20 22:02 22:27 23:54 WBC RBC Hgb Hct MCV RDW Plt Count Lymph % (Auto) [place] % (Auto) Lymph # (Auto) [place] # (Auto) Seg Neutrophils % Seg Neuts % (Manual) Lymphocytes % (Manual) Seg Neutrophils # PT INR ABG pH POC ABG pCO2 POC ABG pO2 ABG pO2 ABG HCO3 ABG O2 Saturation ABG Base Excess ABG Oxyhemoglobin ABG Sodium ABG Potassium ABG Chloride ABG Glucose Sodium Potassium Chloride Carbon Dioxide BUN Creatinine Glucose POC Glucose 147 H 142 H 143 H Lactic Acid Calcium Phosphorus AST Total Creatine Kinase Troponin T HDL Cholesterol Arterial Blood Glucose Arterial Blood Ionized Calcium Urine WBC (Auto) Urine Creatinine 09/22/20 09/22/20 09/22/20 00:49 02:01 02:14 WBC RBC Hgb Hct MCV RDW Plt Count Lymph % (Auto) [place] % (Auto) Lymph # (Auto) [place] # (Auto) Seg Neutrophils % Seg Neuts % (Manual) Lymphocytes % (Manual) Seg Neutrophils # PT INR ABG pH POC ABG pCO2 POC ABG pO2 ABG pO2 ABG HCO3 ABG O2 Saturation ABG Base Excess ABG Oxyhemoglobin ABG Sodium ABG Potassium ABG Chloride ABG Glucose Sodium Potassium Chloride Carbon Dioxide BUN Creatinine Glucose POC Glucose 154 H 154 H 149 H Lactic Acid Calcium Phosphorus AST Total Creatine Kinase Troponin T HDL Cholesterol Arterial Blood Glucose Arterial Blood Ionized Calcium Urine WBC (Auto) Urine Creatinine 09/22/20 09/22/20 09/22/20 02:57 03:21 03:58 WBC RBC Hgb Hct MCV RDW Plt Count Lymph % (Auto) [place] % (Auto) Lymph # (Auto) [place] # (Auto) Seg Neutrophils % Seg Neuts % (Manual) Lymphocytes % (Manual) Seg Neutrophils # PT INR ABG pH 7.496 H POC ABG pCO2 25.0 L POC ABG pO2 73.8 L ABG pO2 ABG HCO3 ABG O2 Saturation ABG Base Excess ABG Oxyhemoglobin ABG Sodium ABG Potassium ABG Chloride 115.0 H ABG Glucose 154 H Sodium Potassium Chloride Carbon Dioxide BUN Creatinine Glucose POC Glucose 166 H 158 H Lactic Acid Calcium Phosphorus AST Total Creatine Kinase Troponin T HDL Cholesterol Arterial Blood Glucose 154 H Arterial Blood Ionized Calcium 4.5 L Urine WBC (Auto) Urine Creatinine 09/22/20 09/22/20 09/22/20 05:06 05:56 06:50 WBC RBC Hgb Hct MCV RDW Plt Count Lymph % (Auto) [place] % (Auto) Lymph # (Auto) [place] # (Auto) Seg Neutrophils % Seg Neuts % (Manual) Lymphocytes % (Manual) Seg Neutrophils # PT INR ABG pH POC ABG pCO2 POC ABG pO2 ABG pO2 ABG HCO3 ABG O2 Saturation ABG Base Excess ABG Oxyhemoglobin ABG Sodium ABG Potassium ABG Chloride ABG Glucose Sodium Potassium Chloride Carbon Dioxide BUN Creatinine Glucose POC Glucose 147 H 145 H 137 H Lactic Acid Calcium Phosphorus AST Total Creatine Kinase Troponin T HDL Cholesterol Arterial Blood Glucose Arterial Blood Ionized Calcium Urine WBC (Auto) Urine Creatinine 09/22/20 09/22/20 09/22/20 08:02 08:26 08:26 WBC 15.2 H RBC Hgb Hct MCV RDW 16.0 H Plt Count Lymph % (Auto) 7.6 L [place] % (Auto) Lymph # (Auto) [place] # (Auto) 1.0 H Seg Neutrophils % 86.0 H Seg Neuts % (Manual) Lymphocytes % (Manual) Seg Neutrophils # 13.0 H PT 15.5 H INR 1.25 H ABG pH POC ABG pCO2 POC ABG pO2 ABG pO2 ABG HCO3 ABG O2 Saturation ABG Base Excess ABG Oxyhemoglobin ABG Sodium ABG Potassium ABG Chloride ABG Glucose Sodium Potassium Chloride Carbon Dioxide BUN Creatinine Glucose POC Glucose 149 H Lactic Acid Calcium Phosphorus AST Total Creatine Kinase Troponin T HDL Cholesterol Arterial Blood Glucose Arterial Blood Ionized Calcium Urine WBC (Auto) Urine Creatinine 09/22/20 09/22/20 09/22/20 08:26 12:04 15:55 WBC RBC Hgb Hct MCV RDW Plt Count Lymph % (Auto) [place] % (Auto) Lymph # (Auto) [place] # (Auto) Seg Neutrophils % Seg Neuts % (Manual) Lymphocytes % (Manual) Seg Neutrophils # PT INR ABG pH POC ABG pCO2 POC ABG pO2 ABG pO2 ABG HCO3 ABG O2 Saturation ABG Base Excess ABG Oxyhemoglobin ABG Sodium ABG Potassium ABG Chloride ABG Glucose Sodium 146 H Potassium 3.5 L Chloride 114.0 H Carbon Dioxide 18 L BUN 46 H Creatinine 3.7 H Glucose 134 H POC Glucose 138 H 123 H Lactic Acid Calcium 7.7 L Phosphorus AST Total Creatine Kinase Troponin T HDL Cholesterol Arterial Blood Glucose Arterial Blood Ionized Calcium Urine WBC (Auto) Urine Creatinine 09/22/20 09/22/20 09/23/20 21:57 23:41 03:30 WBC 14.2 H RBC Hgb Hct MCV RDW 16.5 H Plt Count 126 L Lymph % (Auto) 8.2 L [place] % (Auto) 7.8 H Lymph # (Auto) [place] # (Auto) 1.1 H Seg Neutrophils % 83.8 H Seg Neuts % (Manual) Lymphocytes % (Manual) Seg Neutrophils # 11.9 H PT INR ABG pH POC ABG pCO2 POC ABG pO2 ABG pO2 ABG HCO3 ABG O2 Saturation ABG Base Excess ABG Oxyhemoglobin ABG Sodium ABG Potassium ABG Chloride ABG Glucose Sodium Potassium Chloride Carbon Dioxide BUN Creatinine Glucose POC Glucose 124 H 130 H Lactic Acid Calcium Phosphorus AST Total Creatine Kinase Troponin T HDL Cholesterol Arterial Blood Glucose Arterial Blood Ionized Calcium Urine WBC (Auto) Urine Creatinine 09/23/20 09/23/20 09/23/20 03:30 03:45 12:33 WBC RBC Hgb Hct MCV RDW Plt Count Lymph % (Auto) [place] % (Auto) Lymph # (Auto) [place] # (Auto) Seg Neutrophils % Seg Neuts % (Manual) Lymphocytes % (Manual) Seg Neutrophils # PT INR ABG pH POC ABG pCO2 POC ABG pO2 ABG pO2 ABG HCO3 ABG O2 Saturation ABG Base Excess ABG Oxyhemoglobin ABG Sodium ABG Potassium ABG Chloride ABG Glucose Sodium Potassium Chloride 110.4 H Carbon Dioxide 19 L BUN 56 H Creatinine 4.7 H Glucose 148 H POC Glucose 132 H 139 H Lactic Acid Calcium 7.4 L Phosphorus 5.80 H D AST Total Creatine Kinase Troponin T HDL Cholesterol Arterial Blood Glucose Arterial Blood Ionized Calcium Urine WBC (Auto) Urine Creatinine 09/23/20 09/23/20 09/24/20 17:54 23:18 02:57 WBC RBC Hgb Hct MCV RDW Plt Count Lymph % (Auto) [place] % (Auto) Lymph # (Auto) [place] # (Auto) Seg Neutrophils % Seg Neuts % (Manual) Lymphocytes % (Manual) Seg Neutrophils # PT INR ABG pH POC ABG pCO2 30.0 L POC ABG pO2 75.1 L ABG pO2 ABG HCO3 ABG O2 Saturation ABG Base Excess ABG Oxyhemoglobin ABG Sodium 149.5 H ABG Potassium ABG Chloride 119.0 H ABG Glucose 144 H Sodium Potassium Chloride Carbon Dioxide BUN Creatinine Glucose POC Glucose 115 H 139 H Lactic Acid Calcium Phosphorus AST Total Creatine Kinase Troponin T HDL Cholesterol Arterial Blood Glucose 144 H Arterial Blood Ionized Calcium Urine WBC (Auto) Urine Creatinine 09/24/20 09/24/20 09/24/20 04:20 04:30 05:10 WBC 14.3 H RBC Hgb Hct MCV RDW 16.6 H Plt Count 135 L Lymph % (Auto) 5.9 L [place] % (Auto) Lymph # (Auto) 0.8 L [place] # (Auto) 0.9 H Seg Neutrophils % 87.5 H Seg Neuts % (Manual) Lymphocytes % (Manual) Seg Neutrophils # 12.5 H PT INR ABG pH POC ABG pCO2 POC ABG pO2 ABG pO2 ABG HCO3 ABG O2 Saturation ABG Base Excess ABG Oxyhemoglobin ABG Sodium ABG Potassium ABG Chloride ABG Glucose Sodium 147 H Potassium Chloride 114.4 H Carbon Dioxide 19 L BUN 50 H Creatinine 3.2 H Glucose 142 H POC Glucose 137 H Lactic Acid Calcium 8.3 L Phosphorus AST Total Creatine Kinase Troponin T HDL Cholesterol Arterial Blood Glucose Arterial Blood Ionized Calcium Urine WBC (Auto) Urine Creatinine 09/24/20 09/24/20 09/24/20 12:03 17:39 23:15 WBC RBC Hgb Hct MCV RDW Plt Count Lymph % (Auto) [place] % (Auto) Lymph # (Auto) [place] # (Auto) Seg Neutrophils % Seg Neuts % (Manual) Lymphocytes % (Manual) Seg Neutrophils # PT INR ABG pH POC ABG pCO2 POC ABG pO2 ABG pO2 ABG HCO3 ABG O2 Saturation ABG Base Excess ABG Oxyhemoglobin ABG Sodium ABG Potassium ABG Chloride ABG Glucose Sodium Potassium Chloride Carbon Dioxide BUN Creatinine Glucose POC Glucose 120 H 155 H 109 H Lactic Acid Calcium Phosphorus AST Total Creatine Kinase Troponin T HDL Cholesterol Arterial Blood Glucose Arterial Blood Ionized Calcium Urine WBC (Auto) Urine Creatinine 09/25/20 09/25/20 09/25/20 03:02 05:16 07:50 WBC 14.0 H RBC Hgb Hct MCV RDW 16.5 H Plt Count Lymph % (Auto) 6.7 L [place] % (Auto) 9.1 H Lymph # (Auto) 0.9 L [place] # (Auto) 1.3 H Seg Neutrophils % 84.1 H Seg Neuts % (Manual) Lymphocytes % (Manual) Seg Neutrophils # 11.8 H PT INR ABG pH POC ABG pCO2 POC ABG pO2 67.4 L ABG pO2 ABG HCO3 ABG O2 Saturation ABG Base Excess ABG Oxyhemoglobin 92.3 L ABG Sodium 157.3 H ABG Potassium ABG Chloride 125.0 H ABG Glucose 147 H Sodium Potassium Chloride Carbon Dioxide BUN Creatinine Glucose POC Glucose 126 H Lactic Acid Calcium Phosphorus AST Total Creatine Kinase Troponin T HDL Cholesterol Arterial Blood Glucose 147 H Arterial Blood Ionized Calcium Urine WBC (Auto) Urine Creatinine 09/25/20 09/25/20 09/25/20 07:50 11:56 14:50 WBC RBC Hgb Hct MCV RDW Plt Count Lymph % (Auto) [place] % (Auto) Lymph # (Auto) [place] # (Auto) Seg Neutrophils % Seg Neuts % (Manual) Lymphocytes % (Manual) Seg Neutrophils # PT INR ABG pH POC ABG pCO2 POC ABG pO2 ABG pO2 ABG HCO3 ABG O2 Saturation ABG Base Excess ABG Oxyhemoglobin ABG Sodium ABG Potassium ABG Chloride ABG Glucose Sodium 160 H D 160 H Potassium Chloride 124.2 H Carbon Dioxide BUN 54 H Creatinine 2.8 H Glucose 124 H POC Glucose 109 H Lactic Acid Calcium 8.3 L Phosphorus AST Total Creatine Kinase Troponin T HDL Cholesterol Arterial Blood Glucose Arterial Blood Ionized Calcium Urine WBC (Auto) Urine Creatinine 09/25/20 09/25/20 09/25/20 18:02 19:45 23:02 WBC RBC Hgb Hct MCV RDW Plt Count Lymph % (Auto) [place] % (Auto) Lymph # (Auto) [place] # (Auto) Seg Neutrophils % Seg Neuts % (Manual) Lymphocytes % (Manual) Seg Neutrophils # PT INR ABG pH POC ABG pCO2 POC ABG pO2 ABG pO2 ABG HCO3 ABG O2 Saturation ABG Base Excess ABG Oxyhemoglobin ABG Sodium ABG Potassium ABG Chloride ABG Glucose Sodium 162 H* 160 H Potassium Chloride Carbon Dioxide BUN Creatinine Glucose POC Glucose 113 H Lactic Acid Calcium Phosphorus AST Total Creatine Kinase Troponin T HDL Cholesterol Arterial Blood Glucose Arterial Blood Ionized Calcium Urine WBC (Auto) Urine Creatinine 09/25/20 09/26/20 09/26/20 23:17 03:30 04:17 WBC 13.9 H RBC Hgb Hct MCV RDW 16.2 H Plt Count 133 L Lymph % (Auto) 7.4 L [place] % (Auto) 11.2 H Lymph # (Auto) 1.0 L [place] # (Auto) 1.6 H Seg Neutrophils % 81.0 H Seg Neuts % (Manual) Lymphocytes % (Manual) Seg Neutrophils # 11.3 H PT INR ABG pH 7.472 H POC ABG pCO2 31.1 L POC ABG pO2 56.5 L ABG pO2 ABG HCO3 ABG O2 Saturation ABG Base Excess ABG Oxyhemoglobin 91.3 L ABG Sodium 159.9 H ABG Potassium ABG Chloride 129.0 H ABG Glucose 135 H Sodium Potassium Chloride Carbon Dioxide BUN Creatinine Glucose POC Glucose 119 H Lactic Acid Calcium Phosphorus AST Total Creatine Kinase Troponin T HDL Cholesterol Arterial Blood Glucose 135 H Arterial Blood Ionized Calcium Urine WBC (Auto) Urine Creatinine 09/26/20 09/26/20 09/26/20 04:17 05:34 11:44 WBC RBC Hgb Hct MCV RDW Plt Count Lymph % (Auto) [place] % (Auto) Lymph # (Auto) [place] # (Auto) Seg Neutrophils % Seg Neuts % (Manual) Lymphocytes % (Manual) Seg Neutrophils # PT INR ABG pH POC ABG pCO2 POC ABG pO2 ABG pO2 ABG HCO3 ABG O2 Saturation ABG Base Excess ABG Oxyhemoglobin ABG Sodium ABG Potassium ABG Chloride ABG Glucose Sodium 162 H* Potassium Chloride 128.4 H Carbon Dioxide BUN 56 H Creatinine 2.5 H Glucose 128 H POC Glucose 135 H 141 H Lactic Acid Calcium Phosphorus 2.00 L D AST Total Creatine Kinase Troponin T HDL Cholesterol Arterial Blood Glucose Arterial Blood Ionized Calcium Urine WBC (Auto) Urine Creatinine 09/26/20 09/26/20 09/26/20 12:12 13:38 17:46 WBC RBC Hgb Hct MCV RDW Plt Count Lymph % (Auto) [place] % (Auto) Lymph # (Auto) [place] # (Auto) Seg Neutrophils % Seg Neuts % (Manual) Lymphocytes % (Manual) Seg Neutrophils # PT INR ABG pH POC ABG pCO2 POC ABG pO2 ABG pO2 ABG HCO3 ABG O2 Saturation ABG Base Excess ABG Oxyhemoglobin ABG Sodium ABG Potassium ABG Chloride ABG Glucose Sodium 160 H Potassium Chloride 127.2 H Carbon Dioxide BUN 60 H Creatinine 2.5 H Glucose 137 H POC Glucose 119 H Lactic Acid Calcium Phosphorus AST Total Creatine Kinase Troponin T HDL Cholesterol Arterial Blood Glucose Arterial Blood Ionized Calcium Urine WBC (Auto) 8.0 H Urine Creatinine 09/26/20 09/27/20 09/27/20 22:25 00:01 00:30 WBC RBC Hgb Hct MCV RDW Plt Count Lymph % (Auto) [place] % (Auto) Lymph # (Auto) [place] # (Auto) Seg Neutrophils % Seg Neuts % (Manual) Lymphocytes % (Manual) Seg Neutrophils # PT INR ABG pH POC ABG pCO2 POC ABG pO2 ABG pO2 ABG HCO3 ABG O2 Saturation ABG Base Excess ABG Oxyhemoglobin ABG Sodium ABG Potassium ABG Chloride ABG Glucose Sodium 161 H* 163 H* Potassium Chloride 129.3 H Carbon Dioxide BUN 61 H Creatinine 2.6 H Glucose 146 H POC Glucose 156 H Lactic Acid Calcium Phosphorus AST Total Creatine Kinase Troponin T HDL Cholesterol Arterial Blood Glucose Arterial Blood Ionized Calcium Urine WBC (Auto) Urine Creatinine 09/27/20 09/27/2009/27/21 03:18 04:40 04:40 WBC 13.8 H RBC Hgb Hct MCV RDW 15.9 H Plt Count 123 L Lymph % (Auto) 7.8 L [place] % (Auto) 10.2 H Lymph # (Auto) 1.1 L [place] # (Auto) 1.4 H Seg Neutrophils % 81.5 H Seg Neuts % (Manual) Lymphocytes % (Manual) Seg Neutrophils # 11.2 H PT INR ABG pH POC ABG pCO2 POC ABG pO2 70.0 L ABG pO2 ABG HCO3 ABG O2 Saturation ABG Base Excess ABG Oxyhemoglobin ABG Sodium 160.6 H ABG Potassium ABG Chloride 130.0 H ABG Glucose 139 H Sodium 162 H* Potassium Chloride 128.9 H Carbon Dioxide BUN 63 H Creatinine 2.6 H Glucose 128 H POC Glucose Lactic Acid Calcium 8.3 L Phosphorus AST Total Creatine Kinase Troponin T HDL Cholesterol Arterial Blood Glucose 139 H Arterial Blood Ionized Calcium Urine WBC (Auto) Urine Creatinine 09/27/20 05:55 WBC RBC Hgb Hct MCV RDW Plt Count Lymph % (Auto) [place] % (Auto) Lymph # (Auto) [place] # (Auto) Seg Neutrophils % Seg Neuts % (Manual) Lymphocytes % (Manual) Seg Neutrophils # PT INR ABG pH POC ABG pCO2 POC ABG pO2 ABG pO2 ABG HCO3 ABG O2 Saturation ABG Base Excess ABG Oxyhemoglobin ABG Sodium ABG Potassium ABG Chloride ABG Glucose Sodium Potassium Chloride Carbon Dioxide BUN Creatinine Glucose POC Glucose 116 H Lactic Acid Calcium Phosphorus AST Total Creatine Kinase Troponin T HDL Cholesterol Arterial Blood Glucose Arterial Blood Ionized Calcium Urine WBC (Auto) Urine Creatinine
--- NOTE | 2020-09-27 12:13 | Progress Note ---
Assessment and Plan - Patient Problems (1) Cardiopulmonary arrest Current Visit: Yes Status: Acute Plan to address problem: An echocardiogram demonstrates severe left ventricular dysfunction, ejection fraction 10-15%. Patient presented with out of hospital cardiopulmonary arrest, underlying severe dilated cardiomyopathy, severe anoxic encephalopathy, currently on supportive management. Prognosis is poor. Subjective Date of service: 09/27/20 Principal diagnosis: Acute respiratory failure Interval history: Remains intubated, unresponsive, on the vent. Objective Vital Signs Temp Pulse Pulse Resp BP Pulse Ox 09/27/20 11:49 102.9 F H 09/27/20 09:30 114 H 29 H 115/75 96 09/27/20 09:00 112 H 30 H 118/76 96 09/27/20 08:30 107 H 28 H 103/64 95 09/27/20 08:00 108 H 28 H 114/59 96 09/27/20 07:30 102.7 F H 105 H 30 H 125/80 98 09/27/20 07:00 109 H 31 H 126/78 97 09/27/20 06:30 104 H 30 H 121/70 96 09/27/20 06:00 105 H 32 H 129/81 96 09/27/20 05:30 101 H 19 128/79 97 09/27/20 05:19 112 H 118/88 09/27/20 05:00 116 H 32 H 118/88 96 09/27/20 04:30 112 H 32 H 121/84 97 09/27/20 04:00 102.0 F H 117 H 117 H 20 128/86 98 09/27/20 03:30 111 H 32 H 123/84 96 09/27/20 03:00 115 H 31 H 126/80 96 09/27/20 02:30 113 H 32 H 125/81 96 09/27/20 02:00 114 H 33 H 116/74 96 09/27/20 01:30 112 H 34 H 120/81 96 09/27/20 01:00 112 H 29 H 103/75 96 09/27/20 00:30 104 H 33 H 118/81 97 09/27/20 00:12 113 H 110/75 09/27/20 00:00 101.7 F H 112 H 112 H 31 H 110/75 97 09/26/20 23:56 112 H 110/75 96 09/26/20 23:30 109 H 33 H 109/65 96 09/26/20 23:00 112 H 32 H 100/70 96 09/26/20 22:30 114 H 31 H 104/65 96 09/26/20 22:01 118 H 33 H 120/70 97 09/26/20 22:00 118 H 33 H 120/70 97 09/26/20 21:44 115 H 34 H 124/79 97 09/26/20 21:30 114 H 33 H 124/79 97 09/26/20 21:27 115 H 128/89 09/26/20 21:00 120 H 35 H 128/89 97 09/26/20 20:32 112 H 124/85 96 09/26/20 20:30 114 H 32 H 124/85 96 09/26/20 20:00 102.2 F H 109 H 107 H 30 H 115/82 96 09/26/20 19:30 103 H 32 H 110/72 95 09/26/20 19:00 103 H 31 H 108/70 95 09/26/20 18:30 106 H 32 H 124/83 97 09/26/20 18:02 120 H 126/83 09/26/20 18:01 120 H 126/83 09/26/20 18:00 121 H 32 H 126/83 97 09/26/20 17:30 120 H 30 H 125/87 95 09/26/20 17:00 118 H 31 H 127/88 95 09/26/20 16:30 118 H 32 H 130/90 95 09/26/20 16:08 116 H 29 H 121/89 95 09/26/20 16:00 100.9 F H 117 H 31 H 121/89 95 09/26/20 15:30 116 H 30 H 115/84 96 09/26/20 15:00 113 H 31 H 119/83 95 09/26/20 14:30 110 H 33 H 117/88 95 09/26/20 14:00 104 H 33 H 124/92 95 09/26/20 13:33 120 H 119/89 09/26/20 13:30 120 H 36 H 119/89 96 09/26/20 13:00 120 H 37 H 117/81 94 09/26/20 12:54 119 H 122/85 09/26/20 12:30 119 H 35 H 122/85 94 09/26/20 12:15 98 - Physical Examination General: Other (intubated, unresponsive, on the vent) HEENT: Positive: Other (Pupils fixed) Cardiac: Positive: Tachycardia - Labs and Meds CBC 09/27/20 Range/Units 04:40 WBC 13.8 H (4.5-11.0) K/mm3 RBC 4.23 (3.65-5.03) M/mm3 Hgb 12.9 (11.8-15.2) gm/dl Hct 39.0 (35.5-45.6) % Plt Count 123 L (140-440) K/mm3 Lymph # (Auto) 1.1 L (1.2-5.4) K/mm3 [place] # (Auto) 1.4 H (0.0-0.8) K/mm3 Eos # (Auto) 0.0 (0.0-0.4) K/mm3 Baso # (Auto) 0.1 (0.0-0.1) K/mm3 Comprehensive Metabolic Panel 09/26/20 09/26/20 09/27/20 Range/Units 12:12 22:25 00:30 Sodium 160 H 161 H* 163 H* (137-145) mmol/L Potassium 3.7 3.7 (3.6-5.0) mmol/L Chloride 127.2 H 129.3 H (98-107) mmol/L Carbon Dioxide 25 23 (22-30) mmol/L BUN 60 H 61 H (9-20) mg/dL Creatinine 2.5 H 2.6 H (0.8-1.3) mg/dL Glucose 137 H 146 H (75-100) mg/dL Calcium 8.4 8.5 (8.4-10.2) mg/dL 09/27/20 09/27/20 Range/Units 04:40 10:15 Sodium 162 H* 164 H* (137-145) mmol/L Potassium 3.6 3.5 L (3.6-5.0) mmol/L Chloride 128.9 H 131.3 H (98-107) mmol/L Carbon Dioxide 23 22 (22-30) mmol/L BUN 63 H 63 H (9-20) mg/dL Creatinine 2.6 H 2.7 H (0.8-1.3) mg/dL Glucose 128 H 147 H (75-100) mg/dL Calcium 8.3 L 8.5 (8.4-10.2) mg/dL
--- NOTE | 2020-09-27 13:30 | Progress Note ---
Assessment and Plan Cultures: SARS-CoV-2 PCR negative. Sputum culture 09/20/2020 upper respiratory misha. Urine culture 09/20/2020 10-100,000 mixed colonies. Blood culture 09/21/2020 no growth today. Blood culture 09/25/2020 no growth today Sputum culture 09/25/2020 pending. MRSA PCR positive Assessment: 50-year-old male with history of hypertension, admitted on 09/20/2020 secondary to syncope followed up by outside cardiac arrest: #SIRS rule out sepsis: remains with high fever likely central, rule out VAP; likely secondary to zydwses-em-yca-hospital cardiac arrest +/-UTI. Chest x-ray without evidence of consolidation. Blood culture so far negative. Persistent fever likely secondary to central fever from anoxic brain injury. #UTI: Urine culture grew mixed bacteria. Completed Rocephin for 5 days. #Ewniliy-bt-lit-hospital cardiac arrest: per cards #Acute encephalopathy: Likely secondary to anoxic brain injury. Brain MRI shows diffuse cerebral cortical restricted diffuse edema consistent with anoxic brain. #Cardiomyopathy: Transthoracic echo shows severely dilated left ventricle, the ventricle systolic function severely decreased, borderline concentric left ventr icle hypertrophy, severe global hypokinesis of the left ventricle, LVEF 10 to 15%, mild MR. Cardiology on board. #JAMEY: Worsening. #Transaminitis: Likely due to sepsis. Recommendations -Stop vancomycin D2 -Start linezolid to cover empirically for MRSA VAP given MRSA PCR positive -Follow-up respiratory cultures -Continue cefepime D2, will likely stop tomorrow -repeat CXR ordered -Monitor fever likely central fever Guarded prognosis Will follow. Briseida Antonio MD Infectious Diseases Employee Development Director [facility] M [phone] O [phone] Subjective Date of service: 09/27/20 Principal diagnosis: Acute respiratory failure Interval history: Remains unresponsive, T-max 103, no other acute events overnight. Objective - Exam Narrative Exam: General appearance: Intubated unresponsive Eyes: anicteric sclerae, moist conjunctivae; no lid-lag; PERRLA HENT: Normocephalic, Atraumatic; normal external ears, nares open, oropharynx endotracheal tube in place Neck: supple, tracheal midline, no JVD Lungs: Bilateral rhonchi CV: RRR no murmur Abdomen: Soft, non-tender; no masses or hepatosplenomegaly Extremities: no edema, no cyanosis Skin: No rash. Psych: Unresponsive Neuro: Unresponsive - Constitutional Vitals: Vital Signs Temp Pulse Resp BP Pulse Ox 102.9 F H 115 H 33 H 95/68 98 09/27/20 11:49 09/27/20 12:30 09/27/20 12:30 09/27/20 12:30 09/27/20 12:30 Temperature -Last 24 Hours Temperature 102.9 F Temperature 102.7 F Temperature 102.0 F Temperature 101.7 F Temperature 102.2 F Temperature 100.9 F - Labs CBC & Chem 7: 09/27/20 04:40 09/27/20 10:15 Labs: Abnormal lab results 09/26/20 09/26/20 09/26/20 Range/Units 12:12 13:38 17:46 WBC (4.5-11.0) K/mm3 RDW (13.2-15.2) % Plt Count (140-440) K/mm3 Lymph % (Auto) (13.4-35.0) % [place] % (Auto) (0.0-7.3) % Lymph # (Auto) (1.2-5.4) K/mm3 [place] # (Auto) (0.0-0.8) K/mm3 Seg Neutrophils % (40.0-70.0) % Seg Neutrophils # (1.8-7.7) K/mm3 POC ABG pO2 (83-108) mmHg ABG Sodium (136.0-145.0) mmol/L ABG Chloride (98-107) mmol/L ABG Glucose (65-95) mg/dL Sodium 160 H (137-145) mmol/L Potassium (3.6-5.0) mmol/L Chloride 127.2 H (98-107) mmol/L BUN 60 H (9-20) mg/dL Creatinine 2.5 H (0.8-1.3) mg/dL Glucose 137 H (75-100) mg/dL POC Glucose 119 H (70-105) mg/dL Calcium (8.4-10.2) mg/dL Arterial Blood Glucose (65-95) mg/dL Urine WBC (Auto) 8.0 H (0.0-6.0) /HPF 05/04/0809/27/20 09/27/20 Range/Units 22:25 00:01 00:30 WBC (4.5-11.0) K/mm3 RDW (13.2-15.2) % Plt Count (140-440) K/mm3 Lymph % (Auto) (13.4-35.0) % [place] % (Auto) (0.0-7.3) % Lymph # (Auto) (1.2-5.4) K/mm3 [place] # (Auto) (0.0-0.8) K/mm3 Seg Neutrophils % (40.0-70.0) % Seg Neutrophils # (1.8-7.7) K/mm3 POC ABG pO2 (83-108) mmHg ABG Sodium (136.0-145.0) mmol/L ABG Chloride (98-107) mmol/L ABG Glucose (65-95) mg/dL Sodium 161 H* 163 H* (137-145) mmol/L Potassium (3.6-5.0) mmol/L Chloride 129.3 H (98-107) mmol/L BUN 61 H (9-20) mg/dL Creatinine 2.6 H (0.8-1.3) mg/dL Glucose 146 H (75-100) mg/dL POC Glucose 156 H (70-105) mg/dL Calcium (8.4-10.2) mg/dL Arterial Blood Glucose (65-95) mg/dL Urine WBC (Auto) (0.0-6.0) /HPF 09/27/20 09/27/20 09/27/20 Range/Units 03:18 04:40 04:40 WBC 13.8 H (4.5-11.0) K/mm3 RDW 15.9 H (13.2-15.2) % Plt Count 123 L (140-440) K/mm3 Lymph % (Auto) 7.8 L (13.4-35.0) % [place] % (Auto) 10.2 H (0.0-7.3) % Lymph # (Auto) 1.1 L (1.2-5.4) K/mm3 [place] # (Auto) 1.4 H (0.0-0.8) K/mm3 Seg Neutrophils % 81.5 H (40.0-70.0) % Seg Neutrophils # 11.2 H (1.8-7.7) K/mm3 POC ABG pO2 70.0 L (83-108) mmHg ABG Sodium 160.6 H (136.0-145.0) mmol/L ABG Chloride 130.0 H (98-107) mmol/L ABG Glucose 139 H (65-95) mg/dL Sodium 162 H* (137-145) mmol/L Potassium (3.6-5.0) mmol/L Chloride 128.9 H (98-107) mmol/L BUN 63 H (9-20) mg/dL Creatinine 2.6 H (0.8-1.3) mg/dL Glucose 128 H (75-100) mg/dL POC Glucose (70-105) mg/dL Calcium 8.3 L (8.4-10.2) mg/dL Arterial Blood Glucose 139 H (65-95) mg/dL Urine WBC (Auto) (0.0-6.0) /HPF 09/27/20 09/27/20 Range/Units 05:55 10:15 WBC (4.5-11.0) K/mm3 RDW (13.2-15.2) % Plt Count (140-440) K/mm3 Lymph % (Auto) (13.4-35.0) % [place] % (Auto) (0.0-7.3) % Lymph # (Auto) (1.2-5.4) K/mm3 [place] # (Auto) (0.0-0.8) K/mm3 Seg Neutrophils % (40.0-70.0) % Seg Neutrophils # (1.8-7.7) K/mm3 POC ABG pO2 (83-108) mmHg ABG Sodium (136.0-145.0) mmol/L ABG Chloride (98-107) mmol/L ABG Glucose (65-95) mg/dL Sodium 164 H* (137-145) mmol/L Potassium 3.5 L (3.6-5.0) mmol/L Chloride 131.3 H (98-107) mmol/L BUN 63 H (9-20) mg/dL Creatinine 2.7 H (0.8-1.3) mg/dL Glucose 147 H (75-100) mg/dL POC Glucose 116 H (70-105) mg/dL Calcium (8.4-10.2) mg/dL Arterial Blood Glucose (65-95) mg/dL Urine WBC (Auto) (0.0-6.0) /HPF
--- NOTE | 2020-09-27 14:20 | Progress Note ---
Assessment and Plan Assessment and plan: This is a 50-year-old male with heart failure and hypertension who presents to the emergency department on 09/21 with cardiac arrest after syncopal episode about 45 minutes prior to arrival to the emergency department. Upon arrival to the emergency department patient was found to be hypotensive and subsequently started on pressors with significant improvement in his blood pressure. Work-up in the emergency department reveals lactic acidosis, initial troponin within normal limits however subsequent troponins were elevated, no obvious ischemic changes on EKG, UDS positive for marijuana, urinalysis significant for urinary tract infection, BUN/creatinine slightly elevated 26/21. CXR showed severe ca rdiomegaly with mild interstitial pulmonary edema. Patient was admitted to the hospital service with consults to CCM, cardiology and nephrology s/p cardiac arrest, UTI, JAMEY, lactic acidosis and hypotension. MRI reviewed concerning for anoxic encephalopathy -CCM, cardiology, nephrology consulted, appreciate recommendations -s/p vasopressor support with Levophed, phenyl epinephrine, epinephrine -COVID 19 pcr (-) -Fentayl gtt -TF -09/20 CXR shows cardiomegaly -09/21 echocardiogram shows severely dilated left ventricle, the ventricle systolic function severely decreased, borderline concentric left ventricle hypertrophy, severe global hypokinesis of the left ventricle, LVEF 10 to 15%, mild MR, trace TR, RVSP is normal at 12 mmHg, trace pericardial effusion. -Accu-Cheks every 6 hours, SSI -Renal ultrasound pending -09/21 FENa calculated at 3.14 indicating ATN -09/21 CT head shows motion degradation of the image quality despite repeat imaging. However, there appears to be mild cerebral white matter disease as described without CT evidence of acute intracranial hemorrhage. -09/23 CT head shows loss of reyna-white differentiation diffusely likely due to diffuse cerebral edema, interval decrease in ventricular size size diffusely likely due to compression however no herniation identified, suspect developing infarct in the right occipital region without hemorrhage. Evaluation limited by artifact -09/23 MRI brain without contrast pending -09/23 MRA/MRV head without contrast pending -09/23 Bilateral carotid ultrasound pending -Hemoglobin A1c, hepatic panel pending -Trend CBC, BMP 09/22: Patient was started on a fentanyl drip and propofol drip was increased. At the time of my examination patient is on CMV tidal and 450, rate 20, PEEP 6 and FiO2 25%. Patient had a T-max of 101.9 overnight. Today we removed Park catheter and femoral CVL. Plan to obtain PICC/PIV. Started TF today. 09/23: CT head obtained yesterday shows diffuse cerebral edema and a new suspected developing infarct in the right occipital region. Patient has worsening renal function today and hyperphosphatemia. The time of my examination patient was on CMV tidal 450, rate 20, PEEP 625% FiO2 and sedated on fentanyl at 2 mcg. CCM to update family on the findings. CVA work-up ordered. Renal function worsened today. 09/24: Patient has hyponatremia, hypochloremia, metabolic acidosis, slightly improved renal function. CCM discussion with family today regarding prognosis. Remains sedated on fentanyl CMV TV 450, R 20, PEEP 6, FiO2 25%. Park was replaced for retention. 09/25: Mr. Avelar unfortunately remains unresponsive no pupillary reflex appreciated. Still with fever. Start empiric antibiotics and obtain cultures. Although fever could be central. Continue ventilatory support. MRI is concerning for anoxic encephalopathy with global edema. Patient with severe hypernatremia. Will obtain neurosurgery evaluation and also ID evaluation. Free water has been started by nephrology. Cardiology input appreciated. 09/26. No indication for head CT at this time as renal is improving per airplane electrical repairer. ID input appreciated likely underlying sepsis. Antibiotics as recommended source felt to be secondary to UTI as chest x-ray is without evidence of consolidation. Repeat chest x-ray and urine analysis is pending work cultures are being followed. MRSA PCR is also pending. Patient not on vancomycin and cefepime renally adjusted. I had extensive discussion with the daughter and the father yesterday. Later in the day the patient was made a DNR. Advance care planning time 35 minutes 09/27: Antibiotics changes per ID. Vancomycin discontinued started on linezolid. Continue current management. Patient unfortunately still with profound encephalopathy. Monitor cultures. S/p cardiac arrest Acute hypoxic respiratory failure Acute toxic and anoxic metabolic encephalopathy Acute kidney injury with underlying ATN Sepsis Cardiomyopathy left ejection fraction of 10 to 15% Acute cystitis Leukocytosis Coagulopathic Transaminitis likely secondary to sepsis Hyperchloremia Metabolic acidosis Lactic acidosis Hypertension Prognosis is poor GI/DVT prophylaxis: PPI, heparin subcu, SCDs to bilateral lower extremities while in bed Disposition: ICU The high probability of a clinically significant, sudden or life threatening deterioration of the [multi] system(s) required my full and direct attention, intervention and personal management. The aggregate critical care time was [35] minutes. This time is in addition to time spent performing reported procedures but includes the following: [x] Data Review and interpretation [x] Patient assessment and monitoring of vital signs [x] Documentation [x] Medication orders and management History Interval history: Patient seen and examined nonresponsive, tachycardia persist remains on full ventilatory support. Still with fever Hospitalist Physical - Physical exam Narrative exam: General appearance: Present: other (Unresponsive, on the vent) - EENT Eyes: Absent: PERRL ENT: clear oral mucosa - Neck Neck: Absent: masses or JVD, cervical LAD - Respiratory Respiratory effort: normal Respiratory: bilateral: CTA - Cardiovascular Rhythm: regular Heart Sounds: Present: S1 & S2. Tachycardia absent: systolic murmur, diastolic murmur - Extremities Extremities: no ischemia, pulses intact, pulses symmetrical, No edema, normal color Peripheral Pulses: within normal limits - Abdominal General gastrointestinal: soft, non-tender, non-distended, normal bowel sounds - Integumentary Integumentary: Present: warm, dry - Neurologic Neurologic: other (no response to painful stimuli, no cough/gag reflex) - Allied Health Allied health notes reviewed: nursing, RT - Constitutional Vitals: Temp Pulse Resp BP Pulse Ox 102.9 F H 115 H 33 H 95/68 98 09/27/20 11:49 09/27/20 12:30 09/27/20 12:30 09/27/20 12:30 09/27/20 12:30 General appearance: Present: other (Unresponsive, on the vent) HEART Score - HEART Score Troponin: Troponin T 1.880 ng/mL (0.00-0.029) H* D 09/21/20 04:34 Results - Labs CBC & Chem 7: 09/27/20 04:40 09/27/20 10:15 Labs: Laboratory Last Values WBC 13.8 K/mm3 (4.5-11.0) H 09/27/20 04:40 RBC 4.23 M/mm3 (3.65-5.03) 09/27/20 04:40 Hgb 12.9 gm/dl (11.8-15.2) 09/27/20 04:40 Hct 39.0 % (35.5-45.6) 09/27/20 04:40 MCV 92 fl (84-94) 09/27/20 04:40 MCH 31 pg (28-32) 09/27/20 04:40 MCHC 33 % (32-34) 09/27/20 04:40 RDW 15.9 % (13.2-15.2) H 09/27/20 04:40 Plt Count 123 K/mm3 (140-440) L 09/27/20 04:40 Lymph % (Auto) 7.8 % (13.4-35.0) L 09/27/20 04:40 [place] % (Auto) 10.2 % (0.0-7.3) H 09/27/20 04:40 Eos % (Auto) 0.1 % (0.0-4.3) 09/27/20 04:40 Baso % (Auto) 0.4 % (0.0-1.8) 09/27/20 04:40 Lymph # (Auto) 1.1 K/mm3 (1.2-5.4) L 09/27/20 04:40 [place] # (Auto) 1.4 K/mm3 (0.0-0.8) H 09/27/20 04:40 Eos # (Auto) 0.0 K/mm3 (0.0-0.4) 09/27/20 04:40 Baso # (Auto) 0.1 K/mm3 (0.0-0.1) 09/27/20 04:40 Add Manual Diff Complete 09/20/20 23:02 Total Counted 100 09/20/20 23:02 Seg Neutrophils % 81.5 % (40.0-70.0) H 09/27/20 04:40 Seg Neuts % (Manual) 34.0 % (40.0-70.0) L 09/20/20 23:02 Lymphocytes % (Manual) 57.0 % (13.4-35.0) H 09/20/20 23:02 Monocytes % (Manual) 6.0 % (0.0-7.3) 09/20/20 23:02 Eosinophils % (Manual) 2.0 % (0.0-4.3) 09/20/20 23:02 Basophils % (Manual) 1.0 % (0.0-1.8) 09/20/20 23:02 Nucleated RBC % Not Reportable 09/20/20 23:02 Seg Neutrophils # 11.2 K/mm3 (1.8-7.7) H 09/27/20 04:40 Seg Neutrophils # Man 1.9 K/mm3 (1.8-7.7) 09/20/20 23:02 Band Neutrophils # 0.0 K/mm3 09/20/20 23:02 Lymphocytes # (Manual) 3.2 K/mm3 (1.2-5.4) 09/20/20 23:02 Abs React Lymphs (Man) 0.0 K/mm3 09/20/20 23:02 Monocytes # (Manual) 0.3 K/mm3 (0.0-0.8) 09/20/20 23:02 Eosinophils # (Manual) 0.1 K/mm3 (0.0-0.4) 09/20/20 23:02 Basophils # (Manual) 0.1 K/mm3 (0.0-0.1) 09/20/20 23:02 Metamyelocytes # 0.0 K/mm3 09/20/20 23:02 Myelocytes # 0.0 K/mm3 09/20/20 23:02 Promyelocytes # 0.0 K/mm3 09/20/20 23:02 Blast Cells # 0.0 K/mm3 09/20/20 23:02 WBC Morphology Not Reportable 09/20/20 23:02 Hypersegmented Neuts Not Reportable 09/20/20 23:02 Hyposegmented Neuts Not Reportable 09/20/20 23:02 Hypogranular Neuts Not Reportable 09/20/20 23:02 Smudge Cells Not Reportable 09/20/20 23:02 Toxic Granulation Not Reportable 09/20/20 23:02 Toxic Vacuolation Not Reportable 09/20/20 23:02 Dohle Bodies Not Reportable 09/20/20 23:02 Pelger-Huet Anomaly Not Reportable 09/20/20 23:02 Santosh Rods Not Reportable 09/20/20 23:02 Platelet Estimate Not Reportable 09/20/20 23:02 Clumped Platelets Not Reportable 09/20/20 23:02 Plt Clumps, EDTA Not Reportable 09/20/20 23:02 Large Platelets Not Reportable 09/20/20 23:02 Giant Platelets Not Reportable 09/20/20 23:02 Platelet Satelliting Not Reportable 09/20/20 23:02 Plt Morphology Comment Not Reportable 09/20/20 23:02 RBC Morphology Normal 09/20/20 23:02 Dimorphic RBCs Not Reportable 09/20/20 23:02 Polychromasia Not Reportable 09/20/20 23:02 Hypochromasia Not Reportable 09/20/20 23:02 Poikilocytosis Not Reportable 09/20/20 23:02 Anisocytosis Not Reportable 09/20/20 23:02 Microcytosis Not Reportable 09/20/20 23:02 Macrocytosis Not Reportable 09/20/20 23:02 Spherocytes Not Reportable 09/20/20 23:02 Pappenheimer Bodies Not Reportable 09/20/20 23:02 Sickle Cells Not Reportable 09/20/20 23:02 Target Cells Not Reportable 09/20/20 23:02 Tear Drop Cells Not Reportable 09/20/20 23:02 Ovalocytes Not Reportable 09/20/20 23:02 Helmet Cells Not Reportable 09/20/20 23:02 Zurita-Gruver Bodies Not Reportable 09/20/20 23:02 Juncos Rings Not Reportable 09/20/20 23:02 Stark Cells Not Reportable 09/20/20 23:02 Bite Cells Not Reportable 09/20/20 23:02 Crenated Cell Not Reportable 09/20/20 23:02 Elliptocytes Not Reportable 09/20/20 23:02 Acanthocytes (Spur) Not Reportable 09/20/20 23:02 Rouleaux Not Reportable 09/20/20 23:02 Hemoglobin C Crystals Not Reportable 09/20/20 23:02 Schistocytes Not Reportable 09/20/20 23:02 Malaria parasites Not Reportable 09/20/20 23:02 Eduardo Bodies Not Reportable 09/20/20 23:02 Hem Pathologist Commnt No 09/20/20 23:02 PT 15.5 Sec. (12.2-14.9) H 09/22/20 08:26 INR 1.25 (0.87-1.13) H 09/22/20 08:26 APTT 30.6 Sec. (24.2-36.6) 09/21/20 10:08 ABG pH 7.439 (7.320-7.450) 09/27/20 03:18 POC ABG pCO2 34.2 mmHg (32.0-48.0) 09/27/20 03:18 ABG pCO2 40.5 mm Hg 09/21/20 02:15 POC ABG pO2 70.0 mmHg (83-108) L 09/27/20 03:18 ABG pO2 244.1 mm Hg (80.0-90.0) H 09/21/20 02:15 POC ABG HCO3 22.7 09/27/20 03:18 ABG HCO3 17.7 mmol/L (20.0-26.0) L 09/21/20 02:15 ABG O2 Saturation 95.1 (0-100) 09/27/20 03:18 ABG O2 Content 24.2 (0.0-44) 09/21/20 02:15 POC ABG Base Excess -0.9 09/27/20 03:18 ABG Base Excess -8.8 mmol/L (-2.0-3.0) L 09/21/20 02:15 ABG Hemoglobin 13.6 (12.0-17.5) 09/27/20 03:18 ABG Oxyhemoglobin 94.3 (94-98) 09/27/20 03:18 ABG Carboxyhemoglobin 1.3 % (0.0-5.0) 09/21/20 02:15 ABG Methemoglobin 0.3 (0.0-1.5) 09/27/20 03:18 ABG Sodium 160.6 mmol/L (136.0-145.0) H 09/27/20 03:18 ABG Potassium 3.6 mmol/L (3.40-4.50) 09/27/20 03:18 ABG Chloride 130.0 mmol/L (98-107) H 09/27/20 03:18 ABG Glucose 139 mg/dL (65-95) H 09/27/20 03:18 Oxyhemoglobin 97.4 % (95.0-99.0) 09/21/20 02:15 Carboxyhemoglobin 0.5 (0.5-1.5) 09/27/20 03:18 FiO2 21 % 09/21/20 02:15 FiO2 % 35.0 09/27/20 03:18 Sodium 164 mmol/L (137-145) H* 09/27/20 10:15 Potassium 3.5 mmol/L (3.6-5.0) L 09/27/20 10:15 Chloride 131.3 mmol/L (98-107) H 09/27/20 10:15 Carbon Dioxide 22 mmol/L (22-30) 09/27/20 10:15 Anion Gap 14 mmol/L 09/27/20 10:15 BUN 63 mg/dL (9-20) H 09/27/20 10:15 Creatinine 2.7 mg/dL (0.8-1.3) H 09/27/20 10:15 Estimated GFR 31 ml/min 09/27/20 10:15 BUN/Creatinine Ratio 23 % 09/27/20 10:15 Glucose 147 mg/dL (75-100) H 09/27/20 10:15 POC Glucose 116 mg/dL (70-105) H 09/27/20 05:55 Lactic Acid 1.00 mmol/L (0.7-2.0) 09/24/20 04:00 Calcium 8.5 mg/dL (8.4-10.2) 09/27/20 10:15 Phosphorus 2.50 mg/dL (2.5-4.5) D 09/27/20 04:40 Total Bilirubin 0.30 mg/dL (0.1-1.2) 09/20/20 23:02 AST 59 units/L (5-40) H 09/20/20 23:02 ALT 30 units/L (7-56) 09/20/20 23:02 Alkaline Phosphatase 88 units/L (35-129) 09/20/20 23:02 Total Creatine Kinase 3606 units/L (55-170) H 09/21/20 15:54 Troponin T 1.880 ng/mL (0.00-0.029) H* D 09/21/20 04:34 Total Protein 7.0 g/dL (6.3-8.2) 09/20/20 23:02 Albumin 4.1 g/dL (3.9-5) 09/20/20 23:02 Albumin/Globulin Ratio 1.4 % 09/20/20 23:02 Triglycerides 43 mg/dL (2-149) 09/21/20 02:01 Cholesterol 152 mg/dL (50-199) 09/21/20 02:01 LDL Cholesterol Direct 92 mg/dL (50-130) 09/21/20 02:01 HDL Cholesterol 60 mg/dL (40-59) H 09/21/20 02:01 Cholesterol/HDL Ratio 2.53 % 09/21/20 02:01 Arterial Blood Glucose 139 mg/dL (65-95) H 09/27/20 03:18 Arterial Blood Ionized Calcium 4.8 mg/dL (4.6-5.3) 09/27/20 03:18 Urine Color Yellow (Yellow) 09/26/20 13:38 Urine Turbidity Turbid (Clear) 09/26/20 13:38 Urine pH 5.0 (5.0-7.0) 09/26/20 13:38 Ur Specific [place] 1.018 (1.003-1.030) 09/26/20 13:38 Urine Protein 100 mg/dl mg/dL (Negative) 09/26/20 13:38 Urine Glucose (UA) Neg mg/dL (Negative) 09/26/20 13:38 Urine Ketones Neg mg/dL (Negative) 09/26/20 13:38 Urine Blood Mod (Negative) 09/26/20 13:38 Urine Nitrite Neg (Negative) 09/26/20 13:38 Urine Bilirubin Neg (Negative) 09/26/20 13:38 Urine Urobilinogen < 2.0 mg/dL (<2.0) 09/26/20 13:38 Ur Leukocyte Esterase Neg (Negative) 09/26/20 13:38 Urine WBC (Auto) 8.0 /HPF (0.0-6.0) H 09/26/20 13:38 Urine RBC (Auto) 10.0 /HPF (0.0-6.0) 09/26/20 13:38 U Epithel Cells (Auto) 2.0 /HPF (0-13.0) 09/26/20 13:38 Urine Bacteria (Auto) 2+ /HPF (Negative) 09/21/20 14:27 Uric Acid Crystals 3+ 09/26/20 13:38 Urine Mucus 1+ /HPF 09/26/20 13:38 Urine Yeast (Budding) 2+ /HPF 09/20/20 23:35 Urine Sperm Few /HPF (ACTIVITY LEADER) 09/26/20 13:38 Urine Creatinine 60.4 mg/dL (0.1-20.0) H 09/21/20 14:27 Urine Sodium 108 mmol/L 09/21/20 14:27 Urine Urea Nitrogen 305 09/21/20 14:27 Nasal Screen MRSA (PCR) Positive (Negative) 09/25/20 17:55 Urine Opiates Screen Presumptive negative 09/20/20 Unknown Urine Methadone Screen Presumptive negative 09/20/20 Unknown Ur Barbiturates Screen Presumptive negative 09/20/20 Unknown Ur Phencyclidine Scrn Presumptive negative 09/20/20 Unknown Ur Amphetamines Screen Presumptive negative 09/20/20 Unknown U Benzodiazepines Scrn Presumptive negative 09/20/20 Unknown Urine Cocaine Screen Presumptive negative 09/20/20 Unknown U Marijuana (THC) Screen Presumptive positive 09/20/20 Unknown Drugs of Abuse Note Disclamer 09/20/20 Unknown Coronavirus (PCR) Negative (Negative) 09/21/20 10:13 Microbiology: Microbiology 09/25/20 16:57 Tracheal Aspirate Sputum Culture - Preliminary 09/25/20 14:50 Peripheral/Venous Blood Culture - Preliminary NO GROWTH AFTER 24 HOURS 09/25/20 14:50 Peripheral/Venous Blood Culture - Preliminary NO GROWTH AFTER 24 HOURS Park/IV: Voiding Method Indwelling Catheter Active Medications - Current Medications Current Medications: Generic Name Dose Route Start Last Admin Trade Name Freq PRN Reason Stop Dose Admin Acetaminophen 650 mg 09/21/20 15:51 09/26/20 20:52 Acetaminophen 325 Mg/10.15 Ml Oral Liqd Unit Dose FEEDTUBE 650 mg Q6H PRN Administration Pain, Mild (1-3) Lipase/Protease/Amylase 1 each 09/25/20 14:22 Lipase 10,500/Protease 25,000/Amylase 43,750 (Units) Dr Greer FEEDTUBE PRN PRN For Clogged Feeding Tube Aspirin 325 mg 09/21/20 16:00 09/27/20 09:25 Aspirin 325 Mg Tab PO 325 mg QDAY PATSY Administration Atorvastatin Calcium 40 mg 09/23/20 22:00 09/26/20 21:27 Atorvastatin 40 Mg Tab PO 40 mg QHS PATSY Administration Famotidine 20 mg 09/25/20 10:00 09/27/20 09:25 Famotidine 20 Mg Tab PO 20 mg DAILY PATSY Administration Heparin Sodium (Porcine) 5,000 unit 09/21/20 22:00 09/27/20 09:26 Heparin 5,000 Unit/1 Ml Vial SUB-Q 5,000 unit Q12HR PATSY Administration Hydralazine HCl 5 mg 09/23/20 14:00 09/27/20 09:25 Hydralazine 20 Mg/1 Ml Inj IV 5 mg Q4HR PATSY Administration Hydrophilic Ointment 1 applic 09/20/20 22:59 Lip Therapy Vaseline TP Q2HR PRN Dry Lips Norepinephrine 4 mg in 250 mls @ 7.5 mls/hr 09/21/20 05:00 Levophed Drip 4 Mg/Ns 250 Ml IV TITR PATSY Protocol 2 MCG/MIN Fentanyl Citrate 2,000 mcg in 100 mls @ 5.105 mls/hr 09/22/20 11:30 09/25/20 18:17 Fentanyl Drip Premix IV 0 mcg/kg/hr TITR PATSY 0 mls/hr Titration Protocol 1 MCG/KG/HR Dextrose 1,000 mls @ 50 mls/hr 09/26/20 13:00 09/27/20 09:56 D5w IV 50 mls/hr DIRECT PATSY Administration Cefepime HCl 2 gm in 100 mls @ 200 mls/hr 09/26/20 14:00 09/27/20 09:25 Cefepime/Ns 2 Gm/100 Ml IV 200 mls/hr Q12HR PATSY Administration Protocol Linezolid 600 mg 09/27/20 12:00 Linezolid 600 Mg Tab PO 10/01/20 22:01 Q12HR [facility] Protocol Metoprolol Tartrate 50 mg 09/27/20 18:00 Metoprolol Tartrate 50 Mg Tab PO Q6HR [facility] Multi-Ingred Cream/Lotion/Oil/Oint 1 applic 09/20/20 22:59 Mineral Oil/Petrolatum, White Ophth Oint 3.5 Gm OU Q4HR PRN Dry Eye(s) Ondansetron HCl 4 mg 09/21/20 01:24 Ondansetron 4 Mg/2 Ml Inj IV Q8H PRN Nausea And Vomiting Simple Syrup 15 ml 09/25/20 14:22 Simple Syrup 15 Ml FEEDTUBE PRN PRN Hypoglycemia Simple Syrup 30 ml 09/25/20 14:22 Simple Syrup 15 Ml FEEDTUBE PRN PRN Hypoglycemia Sodium Bicarbonate 325 mg 09/25/20 14:22 Sodium Bicarbonate 325 Mg Tab FEEDTUBE PRN PRN For Clogged Feeding Tube Sodium Chloride 10 ml 09/21/20 10:00 09/27/20 09:25 Sodium Chloride 0.9% 10 Ml Flush Syringe IV 10 ml BID PATSY Administration Sodium Chloride 10 ml 09/21/20 01:24 09/24/20 18:21 Sodium Chloride 0.9% 10 Ml Flush Syringe IV 10 ml PRN PRN Administration LINE FLUSH Nutrition/Malnutrition Assess - Dietary Evaluation Nutrition/Malnutrition Findings: Nutrition Notes Start: 09/21/20 08:17 Freq: Status: Active Protocol: Document 09/27/20 13:10 AL (Rec: 09/27/20 13:17 AL [id number]) Co-Sign 09/27/20 13:10 LP Nutrition Notes Initial or Follow up Reassessment Current Diagnosis Acute Kidney Injury, Respiratory Failure Other Pertinent Diagnosis s/p cardiopulmonary arrest, UTI, anoxic encephalopathy with global edema Current Diet TF - Vital AF 1.2 at 65ml/hr Labs/Tests Na 162 BUN 63 Cr 2.6 Pertinent Medications D5W at 50 ml/hr Height 6 ft Weight 102.1 kg [place] Body Weight (kg) 80.90 BMI 30.5 Weight Status Obese Subjective/Other Information F/U for TF tolerance. Pt still intubated. Per RN, pt tolerating TF with no residuals. Flushing at 300 ml q4h until hypernatremia resolves Percent of energy/protein needs met: 100%/72% Burn Absent Trauma Absent GI Symptoms None Current % PO Negligible Minimum of two criteria No physical signs of malnutrition #1 Nutrition Diagnosis Inadequate oral intake Diagnosis Progress(for reassessment Continues documentation) Is patient on ventilator? Yes Is Patient Ambulatory and/or Out of Bed No REE-([facility]-confined to bed) 2318.184 Kcal/Kg value to use for calculation 18 Approximate Energy Requirements Using 1838 kcal/Kg Calculation Used for Recommendations Kcal/kg Additional Notes Pro needs >2g/kg IBW: >162g/ day Fluid needs 1ml/kcal Nutrition Intervention Change Diet Order: Continue TF Nutrition Support: Vital AF 1.2 at 65ml/hr with 300ml water flush q4h until hypernatremia resolves. Once hypernatremia resolves, continue free water flush of 100 ml q4h. [ End ] Kcal 1,872 Protein (gm) 117 Fluid (mL) 1,265 Goal #1 TF tolerance Goal #2 TF to meet needs as best possible Anticipated Discharge Needs: Unable to determine at the time. Follow-Up By: 09/29/20 Additional Comments F/U: TF tolerance and Na labs and water flushes.
--- NOTE | 2020-09-27 15:08 | Progress Note ---
Assessment and Plan Assessment S/p Cardiac arrest Acute hypoxic Respiratory failure JAMEY likely 2/2 ischemic ATN, cardiac arrest Cardiomyopathy, EF 10-15% Acute toxic and anoxic metabolic encephalopathy Sepsis Hyperchloremia Transaminitis Hypotension Plan: Renal function reviewed, SCr level was 2.7 today, yesterday's SCr level was 2.5, non-oliguric No acute indication for HD today Pt with persistent hypernatremia, per neursurgery note no ICP, started on D5W infusion at 50 ml/hr on 09/26/20 Most recent serum Na level was 164 today, yesterday's serum Na level was 160-162 Increase D5W infusion to 75 ml/hr for now given worsening hypernatremia Continue free water 300 ml via orogastric tube q 4 hrs for hypernatremia Renally dose medications Strict [place] Catheter: Yes Intake= 3600 ml Output= 1325 ml (Net= 2275 ml) Renal plan d/w Dr Tee Subjective Date of service: 09/27/20 Principal diagnosis: Acute respiratory failure Objective - Vital Signs Vital signs: Vital Signs - 12hr 09/27/20 09/27/20 09/27/20 03:30 04:00 04:30 Temperature 102.0 F H Pulse Rate 111 H 117 H 112 H Pulse Rate [ 117 H From Monitor] Respiratory 32 H 20 32 H Rate Blood Pressure 123/84 128/86 121/84 O2 Sat by Pulse 96 98 97 Oximetry 09/27/20 09/27/20 09/27/20 05:00 05:19 05:30 Temperature Pulse Rate 116 H 112 H 101 H Pulse Rate [ From Monitor] Respiratory 32 H 19 Rate Blood Pressure 118/88 118/88 128/79 O2 Sat by Pulse 96 97 Oximetry 09/27/20 09/27/20 09/27/20 06:00 06:30 07:00 Temperature Pulse Rate 105 H 104 H 109 H Pulse Rate [ From Monitor] Respiratory 32 H 30 H 31 H Rate Blood Pressure 129/81 121/70 126/78 O2 Sat by Pulse 96 96 97 Oximetry 09/27/20 09/27/20 09/27/20 07:30 08:00 08:30 Temperature 102.7 F H Pulse Rate 105 H 108 H 107 H Pulse Rate [ From Monitor] Respiratory 30 H 28 H 28 H Rate Blood Pressure 125/80 114/59 103/64 O2 Sat by Pulse 98 96 95 Oximetry 09/27/20 09/27/20 09/27/20 09:00 09:30 10:00 Temperature Pulse Rate 112 H 114 H 117 H Pulse Rate [ From Monitor] Respiratory 30 H 29 H 30 H Rate Blood Pressure 118/76 115/75 109/72 O2 Sat by Pulse 96 96 95 Oximetry 09/27/20 09/27/20 09/27/20 10:30 11:00 11:30 Temperature Pulse Rate 115 H 118 H 114 H Pulse Rate [ From Monitor] Respiratory 29 H 28 H 30 H Rate Blood Pressure 115/71 106/66 98/57 O2 Sat by Pulse 96 96 96 Oximetry 09/27/20 09/27/20 09/27/20 11:49 12:00 12:18 Temperature 102.9 F H Pulse Rate 115 H 114 H Pulse Rate [ From Monitor] Respiratory 31 H 29 H Rate Blood Pressure 95/63 115/75 O2 Sat by Pulse 96 96 Oximetry 09/27/20 09/27/20 09/27/20 12:30 13:00 13:30 Temperature Pulse Rate 115 H 116 H 115 H Pulse Rate [ From Monitor] Respiratory 33 H 31 H 29 H Rate Blood Pressure 95/68 94/70 107/68 O2 Sat by Pulse 98 97 97 Oximetry 09/27/20 09/27/20 14:00 14:30 Temperature Pulse Rate 114 H 113 H Pulse Rate [ From Monitor] Respiratory 30 H 30 H Rate Blood Pressure 117/70 103/68 O2 Sat by Pulse 98 96 Oximetry - General Appearance General appearance: intubated EENT: ATNC Neck: no JVD Respiratory: Present: Decreased Breath Sounds (intubated) Cardiology: tachycardia, S1S2 Gastrointestinal: normoactive bowel sounds (orogastric tube intact) Integumentary: warm and dry Neurologic: other (intubated) Musculoskeletal: other (no edema to BLE) - Lab 09/27/20 04:40 09/27/20 10:15 Most recent lab results ABG pH 7.439 (7.320-7.450) 09/27/20 03:18 ABG pCO2 40.5 mm Hg 09/21/20 02:15 ABG pO2 244.1 mm Hg (80.0-90.0) H 09/21/20 02:15 ABG HCO3 17.7 mmol/L (20.0-26.0) L 09/21/20 02:15 ABG O2 Saturation 95.1 (0-100) 09/27/20 03:18 Calcium 8.5 mg/dL (8.4-10.2) 09/27/20 10:15 Phosphorus 2.50 mg/dL (2.5-4.5) D 09/27/20 04:40 Urine Creatinine 60.4 mg/dL (0.1-20.0) H 09/21/20 14:27 Urine Sodium 108 mmol/L 09/21/20 14:27 Medications & Allergies - Medications Allergies/Adverse Reactions: Allergies No Known Allergies Allergy (Unverified 09/20/20 23:08) Home Medications: Home Medications Medication Instructions Recorded Confirmed Last Taken Type Furosemide [Lasix] 40 mg PO QDAY 09/21/20 09/21/20 Unknown History Simvastatin 20 mg PO QDAY 09/21/20 09/21/20 Unknown History amLODIPine [Norvasc] 5 mg PO DAILY 09/21/20 09/21/20 Unknown History carvediloL [Coreg] 25 mg PO BID 09/21/20 09/21/20 Unknown History lisinopriL [Zestril TAB] 40 mg PO QDAY 09/21/20 09/21/20 Unknown History Active Medications: Generic Name Dose Route Start Last Admin Trade Name Freq PRN Reason Stop Dose Admin Acetaminophen 650 mg 09/21/20 15:51 09/26/20 20:52 Acetaminophen 325 Mg/10.15 Ml Oral Liqd Unit Dose FEEDTUBE 650 mg Q6H PRN Administration Pain, Mild (1-3) Lipase/Protease/Amylase 1 each 09/25/20 14:22 Lipase 10,500/Protease 25,000/Amylase 43,750 (Units) Dr Greer FEEDTUBE PRN PRN For Clogged Feeding Tube Aspirin 325 mg 09/21/20 16:00 09/27/20 09:25 Aspirin 325 Mg Tab PO 325 mg QDAY PATSY Administration Atorvastatin Calcium 40 mg 09/23/20 22:00 09/26/20 21:27 Atorvastatin 40 Mg Tab PO 40 mg QHS PATSY Administration Famotidine 20 mg 09/25/20 10:00 09/27/20 09:25 Famotidine 20 Mg Tab PO 20 mg DAILY PATSY Administration Heparin Sodium (Porcine) 5,000 unit 09/21/20 22:00 09/27/20 09:26 Heparin 5,000 Unit/1 Ml Vial SUB-Q 5,000 unit Q12HR PATSY Administration Hydralazine HCl 5 mg 09/23/20 14:00 09/27/20 14:00 Hydralazine 20 Mg/1 Ml Inj IV Not Given Q4HR PATSY Hydrophilic Ointment 1 applic 09/20/20 22:59 Lip Therapy Vaseline TP Q2HR PRN Dry Lips Norepinephrine 4 mg in 250 mls @ 7.5 mls/hr 09/21/20 05:00 Levophed Drip 4 Mg/Ns 250 Ml IV TITR PATSY Protocol 2 MCG/MIN Fentanyl Citrate 2,000 mcg in 100 mls @ 5.105 mls/hr 09/22/20 11:30 09/25/20 18:17 Fentanyl Drip Premix IV 0 mcg/kg/hr TITR PATSY 0 mls/hr Titration Protocol 1 MCG/KG/HR Dextrose 1,000 mls @ 50 mls/hr 09/26/20 13:00 09/27/20 09:56 D5w IV 50 mls/hr DIRECT PATSY Administration Cefepime HCl 2 gm in 100 mls @ 200 mls/hr 09/26/20 14:00 09/27/20 09:25 Cefepime/Ns 2 Gm/100 Ml IV 200 mls/hr Q12HR PATSY Administration Protocol Linezolid 600 mg 09/27/20 12:00 Linezolid 600 Mg Tab PO 10/01/20 22:01 Q12HR [facility] Protocol Metoprolol Tartrate 50 mg 09/27/20 18:00 Metoprolol Tartrate 50 Mg Tab PO Q6HR [facility] Multi-Ingred Cream/Lotion/Oil/Oint 1 applic 09/20/20 22:59 Mineral Oil/Petrolatum, White Ophth Oint 3.5 Gm OU Q4HR PRN Dry Eye(s) Ondansetron HCl 4 mg 09/21/20 01:24 Ondansetron 4 Mg/2 Ml Inj IV Q8H PRN Nausea And Vomiting Simple Syrup 15 ml 09/25/20 14:22 Simple Syrup 15 Ml FEEDTUBE PRN PRN Hypoglycemia Simple Syrup 30 ml 09/25/20 14:22 Simple Syrup 15 Ml FEEDTUBE PRN PRN Hypoglycemia Sodium Bicarbonate 325 mg 09/25/20 14:22 Sodium Bicarbonate 325 Mg Tab FEEDTUBE PRN PRN For Clogged Feeding Tube Sodium Chloride 10 ml 09/21/20 10:00 09/27/20 09:25 Sodium Chloride 0.9% 10 Ml Flush Syringe IV 10 ml BID PATSY Administration Sodium Chloride 10 ml 09/21/20 01:24 09/24/20 18:21 Sodium Chloride 0.9% 10 Ml Flush Syringe IV 10 ml PRN PRN Administration LINE FLUSH
[2020-09-27] MEDS: LINEZOLID 600 MG TAB PO SCH ×2 (15:39→21:24)
[2020-09-27] MEDS ORDERED: DEXTROSE 5% IN WATER 1,000 ML IV SCH (17:00)
[2020-09-27] MEDS: METOPROLOL TARTRATE 50 MG TAB PO SCH (17:27)
[2020-09-27] MEDS: ACETAMINOPHEN 325 MG/10.15 ML ORAL LIQD UNIT DOSE FEEDTUBE PRN (17:27)
[2020-09-28] MEDS: ACETAMINOPHEN 325 MG/10.15 ML ORAL LIQD UNIT DOSE FEEDTUBE PRN ×2 (00:14→17:49)
[2020-09-28] MEDS: METOPROLOL TARTRATE 50 MG TAB PO SCH ×4 (00:30→18:49)
[2020-09-28] MEDS: hydrALAZINE 20 MG/1 ML INJ IV SCH ×6 (02:05→21:51)
[2020-09-28 05:22] LABS: Basophils % (Auto) 0.3 % (0.0-1.8); Eosinophils % (Auto) 0.1 % (0.0-4.3); Hematocrit 39.3 % (35.5-45.6); Hemoglobin 12.8 gm/dl (11.8-15.2); Lymphocytes # (Auto) 1.1 K/mm3 (1.2-5.4); Lymphocytes % (Auto) 6.6 % (13.4-35.0); Mean Corpuscular HGB Conc 33 % (32-34); Mean Corpuscular Volume 94 fl (84-94); Monocytes # (Auto) 1.1 K/mm3 (0.0-0.8); Monocytes % (Auto) 6.5 % (0.0-7.3); Platelet Count 123 K/mm3 (140-440); Red Blood Count 4.19 M/mm3 (3.65-5.03); Red Cell Distribution Width 16.4 % (13.2-15.2)
[2020-09-28 05:36] LABS: Calcium 8.4 mg/dL (8.4-10.2)
[2020-09-28] MEDS: LINEZOLID 600 MG TAB PO SCH ×2 (09:36→21:55)
[2020-09-28] MEDS: ASPIRIN 325 MG TAB PO SCH (09:37)
[2020-09-28] MEDS: HEPARIN 5,000 UNIT/1 ML VIAL SUB-Q SCH ×2 (09:37→21:52)
[2020-09-28] MEDS: CEFEPIME/NS 2 GM/100 ML 2 GM/100 ML BAG IV SCH (09:37)
[2020-09-28] MEDS: FAMOTIDINE 20 MG TAB PO SCH (09:37)
--- NOTE | 2020-09-28 11:42 | Progress Note ---
Assessment and Plan - Patient Problems (1) Cardiopulmonary arrest Current Visit: Yes Status: Acute Plan to address problem: An echocardiogram demonstrates severe left ventricular dysfunction, ejection fraction 10-15%. Patient presented with out of hospital cardiopulmonary arrest, underlying severe dilated cardiomyopathy, severe anoxic encephalopathy, currently on supportive management. Subjective Date of service: 09/28/20 Principal diagnosis: Acute respiratory failure Interval history: Remains intubated, unresponsive, on the vent. Mild sinus tachycardia on telemetry, rate 102. Objective Vital Signs Temp Pulse Pulse Resp BP Pulse Ox 09/28/20 10:00 95 H 28 H 106/62 97 09/28/20 09:50 94 H 98/71 09/28/20 09:30 96 H 29 H 98/71 97 09/28/20 09:00 97 H 32 H 101/64 96 09/28/20 08:54 96 H 31 H 99/68 99 09/28/20 08:51 95 H 99/68 100 09/28/20 08:30 90 30 H 99/68 92 09/28/20 08:00 104 H 29 H 117/58 94 09/28/20 07:34 101.0 F H 09/28/20 07:30 93 H 27 H 97/59 95 09/28/20 07:00 105 H 28 H 105/73 95 09/28/20 06:30 97 H 29 H 117/58 95 09/28/20 06:22 95 H 108/58 09/28/20 06:21 97 H 108/58 09/28/20 06:00 108/58 96 09/28/20 05:30 100 H 28 H 115/64 94 09/28/20 05:00 102 H 29 H 105/72 94 09/28/20 04:30 106 H 30 H 105/75 95 09/28/20 04:27 106 H 111/67 96 09/28/20 04:00 102.3 F H 110 H 109 H 29 H 109/74 95 09/28/20 03:30 105 H 31 H 103/69 96 09/28/20 03:00 108 H 31 H 111/67 96 09/28/20 02:30 103 H 32 H 116/73 96 09/28/20 02:00 106 H 34 H 107/75 97 09/28/20 01:30 108 H 30 H 114/71 96 09/28/20 01:00 109 H 33 H 110/78 96 09/28/20 00:30 103 H 32 H 106/80 97 09/28/20 00:20 107 H 121/74 96 09/28/20 00:00 102.6 F H 102 H 101 H 31 H 121/74 96 09/27/20 23:30 107 H 30 H 112/75 98 09/27/20 23:00 102 H 29 H 111/73 99 09/27/20 22:30 104 H 31 H 107/80 97 09/27/20 22:12 97 H 32 H 107/77 98 09/27/20 22:00 99 H 31 H 107/77 97 09/27/20 21:30 99 H 29 H 97/70 97 09/27/20 21:11 98 H 97/73 09/27/20 21:00 99 H 31 H 97/73 97 09/27/20 20:30 100 H 29 H 99/76 99 09/27/20 20:25 99 H 96/64 97 09/27/20 20:00 101.1 F H 95 H 91 H 29 H 99/66 97 09/27/20 19:30 90 30 H 99/66 96 09/27/20 19:00 88 31 H 103/66 94 09/27/20 18:30 88 29 H 105/70 96 09/27/20 18:00 92 H 28 H 103/70 98 09/27/20 17:36 117 H 125/73 09/27/20 17:30 119 H 29 H 120/78 95 09/27/20 17:00 120 H 29 H 120/74 96 09/27/20 16:30 119 H 26 H 124/79 98 09/27/20 16:00 114 H 31 H 115/77 98 09/27/20 15:30 115 H 31 H 102/75 97 09/27/20 15:23 113 H 103/68 96 09/27/20 15:00 117 H 32 H 106/68 95 09/27/20 14:30 113 H 30 H 103/68 96 09/27/20 14:00 114 H 30 H 117/70 98 09/27/20 13:30 115 H 29 H 107/68 97 09/27/20 13:00 116 H 31 H 94/70 97 09/27/20 12:30 115 H 33 H 95/68 98 05/12/21 12:18 114 H 29 H 115/75 96 09/27/20 12:00 112 H 31 H 95/63 96 09/27/20 11:49 102.9 F H - Physical Examination General: Other (intubated, unresponsive, on the vent) HEENT: Positive: Other (Pupils fixed) Cardiac: Positive: Tachycardia - Labs and Meds CBC 09/28/20 Range/Units 04:29 WBC 16.7 H (4.5-11.0) K/mm3 RBC 4.19 (3.65-5.03) M/mm3 Hgb 12.8 (11.8-15.2) gm/dl Hct 39.3 (35.5-45.6) % Plt Count 123 L (140-440) K/mm3 Lymph # (Auto) 1.1 L (1.2-5.4) K/mm3 [place] # (Auto) 1.1 H (0.0-0.8) K/mm3 Eos # (Auto) 0.0 (0.0-0.4) K/mm3 Baso # (Auto) 0.0 (0.0-0.1) K/mm3 Comprehensive Metabolic Panel 09/28/20 Range/Units 04:29 Sodium 162 H* (137-145) mmol/L Potassium 3.7 (3.6-5.0) mmol/L Chloride 128.7 H (98-107) mmol/L Carbon Dioxide 21 L (22-30) mmol/L BUN 73 H (9-20) mg/dL Creatinine 2.8 H (0.8-1.3) mg/dL Glucose 166 H (75-100) mg/dL Calcium 8.4 (8.4-10.2) mg/dL
--- NOTE | 2020-09-28 11:53 | Progress Note ---
Assessment and Plan Cultures: SARS-CoV-2 PCR negative. Sputum culture 09/20/2020 upper respiratory misha. Urine culture 09/20/2020 10-100,000 mixed colonies. Blood culture 09/21/2020 no growth today. Blood culture 09/25/2020 no growth today Tracheal aspirate culture 09/25/2020 pending. MRSA PCR positive Assessment: 50-year-old male with history of hypertension, admitted on 09/20/2020 secondary to syncope followed up by outside cardiac arrest: #SIRS rule out sepsis: remains with high fever likely central, not better despite broad-spectrum antibiotics; likely secondary to qkmjxyu-ab-gqq-hospital cardiac arrest +/-UTI. Chest x-ray without evidence of consolidation. Blood culture so far negative. Persistent fever likely secondary to central fever from anoxic brain injury. #UTI: Urine culture grew mixed bacteria. Completed Rocephin for 5 days. #Gtnpfwj-ty-evb-hospital cardiac arrest: per cards #Acute encephalopathy: Likely secondary to anoxic brain injury. Brain MRI shows diffuse cerebral cortical restricted diffuse edema consistent with anoxic brain. #Cardiomyopathy: Transthoracic echo shows severely dilated left ventricle, the ventricle systolic function severely decreased, borderline concentric left ventricle hypertrophy, severe global hypokinesis of the left ventricle, LVEF 10 to 15%, mild MR. Cardiology on board. #JAMEY: Worsening. #Transaminitis: Likely due to sepsis. #Thrombocytopenia: Mild Recommendations -Continue linezolid to cover empirically for MRSA VAP given MRSA PCR positive D2 of 7 -Monitor platelets if continues to drop will stop linezolid -Stop cefepime -Follow-up respiratory cultures -repeat CXR ordered -Monitor fever likely central fever Guarded prognosis Will follow. Briseida Antonio MD Infectious Diseases [facility] M [phone] O [phone] Subjective Date of service: 09/28/20 Principal diagnosis: Acute respiratory failure Interval history: Remains with high fever 102 despite antibiotics, unresponsive intubated. Objective - Exam Narrative Exam: General appearance: Intubated unresponsive Eyes: anicteric sclerae, moist conjunctivae; no lid-lag; PERRLA HENT: Normocephalic, Atraumatic; normal external ears, nares open, oropharynx endotracheal tube in place Neck: supple, tracheal midline, no JVD Lungs: Bilateral rhonchi CV: RRR no murmur Abdomen: Soft, non-tender; no masses or hepatosplenomegaly Extremities: no edema, no cyanosis Skin: No rash. Psych: Unresponsive Neuro: Unresponsive - Constitutional Vitals: Vital Signs Temp Pulse Resp BP Pulse Ox 101.0 F H 95 H 28 H 106/62 97 09/28/20 07:34 09/28/20 10:00 09/28/20 10:00 09/28/20 10:00 09/28/20 10:00 Temperature -Last 24 Hours Temperature 101.0 F Temperature 102.3 F Temperature 102.6 F Temperature 101.1 F - Labs CBC & Chem 7: 09/28/20 04:29 09/28/20 04:29 Labs: Abnormal lab results 09/27/20 09/27/20 09/28/20 Range/Units 11:33 17:21 00:10 WBC (4.5-11.0) K/mm3 RDW (13.2-15.2) % Plt Count (140-440) K/mm3 Lymph % (Auto) (13.4-35.0) % Lymph # (Auto) (1.2-5.4) K/mm3 [place] # (Auto) (0.0-0.8) K/mm3 Seg Neutrophils % (40.0-70.0) % Seg Neutrophils # (1.8-7.7) K/mm3 POC ABG pCO2 (32.0-48.0) mmHg POC ABG pO2 (83-108) mmHg ABG Sodium (136.0-145.0) mmol/L ABG Chloride (98-107) mmol/L ABG Glucose (65-95) mg/dL Sodium (137-145) mmol/L Chloride (98-107) mmol/L Carbon Dioxide (22-30) mmol/L BUN (9-20) mg/dL Creatinine (0.8-1.3) mg/dL Glucose (75-100) mg/dL POC Glucose 131 H 151 H 125 H (70-105) mg/dL Arterial Blood Glucose (65-95) mg/dL 09/28/20 09/28/20 09/28/20 Range/Units 03:01 04:29 04:29 WBC 16.7 H (4.5-11.0) K/mm3 RDW 16.4 H (13.2-15.2) % Plt Count 123 L (140-440) K/mm3 Lymph % (Auto) 6.6 L (13.4-35.0) % Lymph # (Auto) 1.1 L (1.2-5.4) K/mm3 [place] # (Auto) 1.1 H (0.0-0.8) K/mm3 Seg Neutrophils % 86.5 H (40.0-70.0) % Seg Neutrophils # 14.4 H (1.8-7.7) K/mm3 POC ABG pCO2 30.0 L (32.0-48.0) mmHg POC ABG pO2 72.7 L (83-108) mmHg ABG Sodium 159.8 H (136.0-145.0) mmol/L ABG Chloride 131.0 H (98-107) mmol/L ABG Glucose 156 H (65-95) mg/dL Sodium 162 H* (137-145) mmol/L Chloride 128.7 H (98-107) mmol/L Carbon Dioxide 21 L (22-30) mmol/L BUN 73 H (9-20) mg/dL Creatinine 2.8 H (0.8-1.3) mg/dL Glucose 166 H (75-100) mg/dL POC Glucose (70-105) mg/dL Arterial Blood Glucose 156 H (65-95) mg/dL 09/28/20 Range/Units 05:16 WBC (4.5-11.0) K/mm3 RDW (13.2-15.2) % Plt Count (140-440) K/mm3 Lymph % (Auto) (13.4-35.0) % Lymph # (Auto) (1.2-5.4) K/mm3 [place] # (Auto) (0.0-0.8) K/mm3 Seg Neutrophils % (40.0-70.0) % Seg Neutrophils # (1.8-7.7) K/mm3 POC ABG pCO2 (32.0-48.0) mmHg POC ABG pO2 (83-108) mmHg ABG Sodium (136.0-145.0) mmol/L ABG Chloride (98-107) mmol/L ABG Glucose (65-95) mg/dL Sodium (137-145) mmol/L Chloride (98-107) mmol/L Carbon Dioxide (22-30) mmol/L BUN (9-20) mg/dL Creatinine (0.8-1.3) mg/dL Glucose (75-100) mg/dL POC Glucose 135 H (70-105) mg/dL Arterial Blood Glucose (65-95) mg/dL
--- NOTE | 2020-09-28 11:59 | Progress Note ---
Assessment and Plan S/p Cardiac arrest Acute hypoxic Respiratory failure JAMEY likely 2/2 ischemic ATN, cardiac arrest Cardiomyopathy, EF 10-15% Acute toxic and anoxic metabolic encephalopathy Sepsis Hyperchloremia Transaminitis Hypotension Plan: Cr is stable, non-oliguric No acute indication for HD today Pt with persistent hypernatremia, per neursurgery note no ICP, cont gentle D5W, can be increased by ICU team if needed Continue free water 300 ml via orogastric tube q 4 hrs for hypernatremia Renally dose medications Strict I&[place] Catheter: Yes Subjective Date of service: 09/28/20 Principal diagnosis: Acute respiratory failure Interval history: on the vent, unresponsive Objective - Vital Signs Vital signs: Vital Signs - 12hr 09/28/20 09/28/20 09/28/20 00:00 00:20 00:30 Temperature 102.6 F H Pulse Rate 102 H 107 H 103 H Pulse Rate [ 101 H From Monitor] Respiratory 31 H 32 H Rate Blood Pressure 121/74 121/74 106/80 O2 Sat by Pulse 96 96 97 Oximetry 09/28/20 09/28/20 09/28/20 01:00 01:30 02:00 Temperature Pulse Rate 109 H 108 H 106 H Pulse Rate [ From Monitor] Respiratory 33 H 30 H 34 H Rate Blood Pressure 110/78 114/71 107/75 O2 Sat by Pulse 96 96 97 Oximetry 09/28/20 09/28/20 09/28/20 02:30 03:00 03:30 Temperature Pulse Rate 103 H 108 H 105 H Pulse Rate [ From Monitor] Respiratory 32 H 31 H 31 H Rate Blood Pressure 116/73 111/67 103/69 O2 Sat by Pulse 96 96 96 Oximetry 09/28/20 09/28/20 09/28/20 04:00 04:27 04:30 Temperature 102.3 F H Pulse Rate 110 H 106 H 106 H Pulse Rate [ 109 H From Monitor] Respiratory 29 H 30 H Rate Blood Pressure 109/74 111/67 105/75 O2 Sat by Pulse 95 96 95 Oximetry 09/28/20 09/28/20 09/28/20 05:00 05:30 06:00 Temperature Pulse Rate 102 H 100 H Pulse Rate [ From Monitor] Respiratory 29 H 28 H Rate Blood Pressure 105/72 115/64 108/58 O2 Sat by Pulse 94 94 96 Oximetry 09/28/20 09/28/20 09/28/20 06:21 06:22 06:30 Temperature Pulse Rate 97 H 95 H 97 H Pulse Rate [ From Monitor] Respiratory 29 H Rate Blood Pressure 108/58 108/58 117/58 O2 Sat by Pulse 95 Oximetry 09/28/20 09/28/20 09/28/20 07:00 07:30 07:34 Temperature 101.0 F H Pulse Rate 105 H 93 H Pulse Rate [ From Monitor] Respiratory 28 H 27 H Rate Blood Pressure 105/73 97/59 O2 Sat by Pulse 95 95 Oximetry 09/28/20 09/28/20 09/28/20 08:00 08:30 08:51 Temperature Pulse Rate 104 H 90 95 H Pulse Rate [ From Monitor] Respiratory 29 H 30 H Rate Blood Pressure 117/58 99/68 99/68 O2 Sat by Pulse 94 92 100 Oximetry 09/28/20 09/28/20 09/28/20 08:54 09:00 09:30 Temperature Pulse Rate 96 H 97 H 96 H Pulse Rate [ From Monitor] Respiratory 31 H 32 H 29 H Rate Blood Pressure 99/68 101/64 98/71 O2 Sat by Pulse 99 96 97 Oximetry 09/28/20 09/28/20 09:50 10:00 Temperature Pulse Rate 94 H 95 H Pulse Rate [ From Monitor] Respiratory 28 H Rate Blood Pressure 98/71 106/62 O2 Sat by Pulse 97 Oximetry - Lab 09/28/20 04:29 09/28/20 04:29 Most recent lab results ABG pH 7.439 (7.320-7.450) 09/28/20 03:01 ABG pCO2 40.5 mm Hg 09/21/20 02:15 ABG pO2 244.1 mm Hg (80.0-90.0) H 09/21/20 02:15 ABG HCO3 17.7 mmol/L (20.0-26.0) L 09/21/20 02:15 ABG O2 Saturation 95.7 (0-100) 09/28/20 03:01 Calcium 8.4 mg/dL (8.4-10.2) 09/28/20 04:29 Phosphorus 2.50 mg/dL (2.5-4.5) D 09/27/20 04:40 Urine Creatinine 60.4 mg/dL (0.1-20.0) H 09/21/20 14:27 Urine Sodium 108 mmol/L 09/21/20 14:27 Medications & Allergies - Medications Allergies/Adverse Reactions: Allergies No Known Allergies Allergy (Unverified 09/20/20 23:08) Home Medications: Home Medications Medication Instructions Recorded Confirmed Last Taken Type Furosemide [Lasix] 40 mg PO QDAY 09/21/20 09/21/20 Unknown History Simvastatin 20 mg PO QDAY 09/21/20 09/21/20 Unknown History amLODIPine [Norvasc] 5 mg PO DAILY 09/21/20 09/21/20 Unknown History carvediloL [Coreg] 25 mg PO BID 09/21/20 09/21/20 Unknown History lisinopriL [Zestril TAB] 40 mg PO QDAY 09/21/20 09/21/20 Unknown History Active Medications: Generic Name Dose Route Start Last Admin Trade Name Freq PRN Reason Stop Dose Admin Acetaminophen 650 mg 09/21/20 15:51 09/28/20 00:14 Acetaminophen 325 Mg/10.15 Ml Oral Liqd Unit Dose FEEDTUBE 650 mg Q6H PRN Administration Pain, Mild (1-3) Lipase/Protease/Amylase 1 each 09/25/20 14:22 Lipase 10,500/Protease 25,000/Amylase 43,750 (Units) Dr Greer FEEDTUBE PRN PRN For Clogged Feeding Tube Aspirin 325 mg 09/21/20 16:00 09/28/20 09:37 Aspirin 325 Mg Tab PO 325 mg QDAY PATSY Administration Atorvastatin Calcium 40 mg 09/23/20 22:00 09/27/20 21:13 Atorvastatin 40 Mg Tab PO 40 mg QHS PATSY Administration Famotidine 20 mg 09/25/20 10:00 09/28/20 09:37 Famotidine 20 Mg Tab PO 20 mg DAILY PATSY Administration Heparin Sodium (Porcine) 5,000 unit 09/21/20 22:00 09/28/20 09:37 Heparin 5,000 Unit/1 Ml Vial SUB-Q 5,000 unit Q12HR PATSY Administration Hydralazine HCl 5 mg 09/23/20 14:00 09/28/20 09:50 Hydralazine 20 Mg/1 Ml Inj IV Not Given Q4HR PATSY Hydrophilic Ointment 1 applic 09/20/20 22:59 Lip Therapy Vaseline TP Q2HR PRN Dry Lips Norepinephrine 4 mg in 250 mls @ 7.5 mls/hr 09/21/20 05:00 Levophed Drip 4 Mg/Ns 250 Ml IV TITR PATSY Protocol 2 MCG/MIN Fentanyl Citrate 2,000 mcg in 100 mls @ 5.105 mls/hr 09/22/20 11:30 09/25/20 18:17 Fentanyl Drip Premix IV 0 mcg/kg/hr TITR PATSY 0 mls/hr Titration Protocol 1 MCG/KG/HR Dextrose 1,000 mls @ 75 mls/hr 09/27/20 17:00 09/28/20 09:43 D5w IV 0 mls/hr DIRECT [facility] Infusion Linezolid 600 mg 09/27/20 12:00 09/28/20 09:36 Linezolid 600 Mg Tab PO 10/03/20 22:01 600 mg Q12HR [facility] Administration Protocol Metoprolol Tartrate 50 mg 09/27/20 18:00 09/28/20 06:22 Metoprolol Tartrate 50 Mg Tab PO Not Given Q6HR [facility] Multi-Ingred Cream/Lotion/Oil/Oint 1 applic 09/20/20 22:59 Mineral Oil/Petrolatum, White Ophth Oint 3.5 Gm OU Q4HR PRN Dry Eye(s) Ondansetron HCl 4 mg 09/21/20 01:24 Ondansetron 4 Mg/2 Ml Inj IV Q8H PRN Nausea And Vomiting Simple Syrup 15 ml 09/25/20 14:22 Simple Syrup 15 Ml FEEDTUBE PRN PRN Hypoglycemia Simple Syrup 30 ml 09/25/20 14:22 Simple Syrup 15 Ml FEEDTUBE PRN PRN Hypoglycemia Sodium Bicarbonate 325 mg 09/25/20 14:22 Sodium Bicarbonate 325 Mg Tab FEEDTUBE PRN PRN For Clogged Feeding Tube Sodium Chloride 10 ml 09/21/20 10:00 09/28/20 10:32 Sodium Chloride 0.9% 10 Ml Flush Syringe IV 10 ml BID PATSY Administration Sodium Chloride 10 ml 09/21/20 01:24 09/24/20 18:21 Sodium Chloride 0.9% 10 Ml Flush Syringe IV 10 ml PRN PRN Administration LINE FLUSH
[2020-09-28 13:30] LABS: Calcium 8.3 mg/dL (8.4-10.2)
--- NOTE | 2020-09-28 13:53 | XRay Report ---
CHEST 1 VIEW 09/28/2020 11:36 AM INDICATION / CLINICAL INFORMATION: Eval for worsening pneumonia. COMPARISON: 09/23/2020 FINDINGS: SUPPORT DEVICES: ET tube and NG tube are satisfactory in position HEART / MEDIASTINUM: Cardiomegaly LUNGS / PLEURA: Mild increased density seen in the right upper lung appears unchanged. No pneumothora x. ADDITIONAL FINDINGS: No significant additional findings. IMPRESSION: 1. Right pulmonary opacities in the right upper lung appears unchanged since prior exam. Signer Name: Ash Ellington MD Signed: 09/28/2020 1:48 PM Workstation Name: [id number]
--- NOTE | 2020-09-28 14:14 | Progress Note ---
Assessment and Plan Assessment and plan: This is a 50-year-old male with heart failure and hypertension who presents to the emergency department on 09/21 with cardiac arrest after syncopal episode about 45 minutes prior to arrival to the emergency department. Upon arrival to the emergency department patient was found to be hypotensive and subsequently started on pressors with significant improvement in his blood pressure. Work-up in the emergency department reveals lactic acidosis, initial troponin within normal limits however subsequent troponins were elevated, no obvious ischemic changes on EKG, UDS positive for marijuana, urinalysis significant for urinary tract infection, BUN/creatinine slightly elevated 26/21. CXR showed severe ca rdiomegaly with mild interstitial pulmonary edema. Patient was admitted to the hospital service with consults to CCM, cardiology and nephrology s/p cardiac arrest, UTI, JAMEY, lactic acidosis and hypotension. MRI reviewed concerning for anoxic encephalopathy -CCM, cardiology, nephrology consulted, appreciate recommendations -s/p vasopressor support with Levophed, phenyl epinephrine, epinephrine -COVID 19 pcr (-) -Fentayl gtt -TF -09/20 CXR shows cardiomegaly -09/21 echocardiogram shows severely dilated left ventricle, the ventricle systolic function severely decreased, borderline concentric left ventricle hypertrophy, severe global hypokinesis of the left ventricle, LVEF 10 to 15%, mild MR, trace TR, RVSP is normal at 12 mmHg, trace pericardial effusion. -Accu-Cheks every 6 hours, SSI -Renal ultrasound pending -09/21 FENa calculated at 3.14 indicating ATN -09/21 CT head shows motion degradation of the image quality despite repeat imaging. However, there appears to be mild cerebral white matter disease as described without CT evidence of acute intracranial hemorrhage. -09/23 CT head shows loss of reyna-white differentiation diffusely likely due to diffuse cerebral edema, interval decrease in ventricular size size diffusely likely due to compression however no herniation identified, suspect developing infarct in the right occipital region without hemorrhage. Evaluation limited by artifact -09/23 MRI brain without contrast pending -09/23 MRA/MRV head without contrast pending -09/23 Bilateral carotid ultrasound pending -Hemoglobin A1c, hepatic panel pending -Trend CBC, BMP 09/22: Patient was started on a fentanyl drip and propofol drip was increased. At the time of my examination patient is on CMV tidal and 450, rate 20, PEEP 6 and FiO2 25%. Patient had a T-max of 101.9 overnight. Today we removed Park catheter and femoral CVL. Plan to obtain PICC/PIV. Started TF today. 09/23: CT head obtained yesterday shows diffuse cerebral edema and a new suspected developing infarct in the right occipital region. Patient has worsening renal function today and hyperphosphatemia. The time of my examination patient was on CMV tidal 450, rate 20, PEEP 625% FiO2 and sedated on fentanyl at 2 mcg. CCM to update family on the findings. CVA work-up ordered. Renal function worsened today. 09/24: Patient has hyponatremia, hypochloremia, metabolic acidosis, slightly improved renal function. CCM discussion with family today regarding prognosis. Remains sedated on fentanyl CMV TV 450, R 20, PEEP 6, FiO2 25%. Park was replaced for retention. 09/25: Mr. Avelar unfortunately remains unresponsive no pupillary reflex appreciated. Still with fever. Start empiric antibiotics and obtain cultures. Although fever could be central. Continue ventilatory support. MRI is concerning for anoxic encephalopathy with global edema. Patient with severe hypernatremia. Will obtain neurosurgery evaluation and also ID evaluation. Free water has been started by nephrology. Cardiology input appreciated. 09/26. No indication for head CT at this time as renal is improving per director of student life. ID input appreciated likely underlying sepsis. Antibiotics as recommended source felt to be secondary to UTI as chest x-ray is without evidence of consolidation. Repeat chest x-ray and urine analysis is pending work cultures are being followed. MRSA PCR is also pending. Patient not on vancomycin and cefepime renally adjusted. I had extensive discussion with the daughter and the father yesterday. Later in the day the patient was made a DNR. Advance care planning time 35 minutes 09/27: Antibiotics changes per ID. Vancomycin discontinued started on linezolid. Continue current management. Patient unfortunately still with profound encephalopathy. Monitor cultures. 09/28: Worsening Hypernatremia 161, Very poor prognosis, Pt with persistent hypernatremia, per neursurgery note no ICP, cont gentle D5W, can be increased by ICU team if needed PER Nephrogy Continue free water 300 ml via orogastric tube q 4 hrs for hypernatremia. Obtain NEUROLOGY EVAL Family made aware of clinical status EEG and Neurology consultation for prognostication S/p cardiac arrest Acute hypoxic respiratory failure Acute toxic and anoxic metabolic encephalopathy Acute kidney injury with underlying ATN Sepsis Cardiomyopathy left ejection fraction of 10 to 15% Acute cystitis Leukocytosis Hypernatremia- Persistent Coagulopathic Transaminitis likely secondary to sepsis Hyperchloremia Metabolic acidosis Lactic acidosis Hypertension Prognosis is poor GI/DVT prophylaxis: PPI, heparin subcu, SCDs to bilateral lower extremities while in bed Disposition: ICU The high probability of a clinically significant, sudden or life threatening deterioration of the [multi] system(s) required my full and direct attention, intervention and personal management. The aggregate critical care time was [35] minutes. This time is in addition to time spent performing reported procedures but includes the following: [x] Data Review and interpretation [x] Patient assessment and monitoring of vital signs [x] Documentation [x] Medication orders and management History Interval history: Patient seen and examined nonresponsive, tachycardia persist remains on full ventilatory support. Still with fever Hospitalist Physical - Physical exam Narrative exam: General appearance: Present: other (Unresponsive, on the vent) - EENT Eyes: Absent: PERRL ENT: clear oral mucosa - Neck Neck: Absent: masses or JVD, cervical LAD - Respiratory Respiratory effort: normal Respiratory: bilateral: CTA - Cardiovascular Rhythm: regular Heart Sounds: Present: S1 & S2. Tachycardia absent: systolic murmur, diastolic murmur - Extremities Extremities: no ischemia, pulses intact, pulses symmetrical, No edema, normal color Peripheral Pulses: within normal limits - Abdominal General gastrointestinal: soft, non-tender, non-distended, normal bowel sounds - Integumentary Integumentary: Present: warm, dry - Neurologic Neurologic: other (no response to painful stimuli, no cough/gag reflex) - Allied Health Allied health notes reviewed: nursing, RT - Constitutional Vitals: Temp Pulse Resp BP Pulse Ox 99.4 F 105 H 31 H 107/79 96 09/28/20 12:23 09/28/20 13:50 09/28/20 13:30 09/28/20 13:50 09/28/20 13:30 General appearance: Present: other (Unresponsive, on the vent) HEART Score - HEART Score Troponin: Troponin T 1.880 ng/mL (0.00-0.029) H* D 09/21/20 04:34 Results - Labs CBC & Chem 7: 09/28/20 04:29 09/28/20 12:51 Labs: Laboratory Last Values WBC 16.7 K/mm3 (4.5-11.0) H 09/28/20 04:29 RBC 4.19 M/mm3 (3.65-5.03) 09/28/20 04:29 Hgb 12.8 gm/dl (11.8-15.2) 09/28/20 04:29 Hct 39.3 % (35.5-45.6) 09/28/20 04:29 MCV 94 fl (84-94) 09/28/20 04:29 MCH 31 pg (28-32) 09/28/20 04:29 MCHC 33 % (32-34) 09/28/20 04:29 RDW 16.4 % (13.2-15.2) H 09/28/20 04:29 Plt Count 123 K/mm3 (140-440) L 09/28/20 04:29 Lymph % (Auto) 6.6 % (13.4-35.0) L 09/28/20 04:29 Placer % (Auto) 6.5 % (0.0-7.3) 09/28/20 04:29 Eos % (Auto) 0.1 % (0.0-4.3) 09/28/20 04:29 Baso % (Auto) 0.3 % (0.0-1.8) 09/28/20 04:29 Lymph # (Auto) 1.1 K/mm3 (1.2-5.4) L 09/28/20 04:29 Placer # (Auto) 1.1 K/mm3 (0.0-0.8) H 09/28/20 04:29 Eos # (Auto) 0.0 K/mm3 (0.0-0.4) 09/28/20 04:29 Baso # (Auto) 0.0 K/mm3 (0.0-0.1) 09/28/20 04:29 Add Manual Diff Complete 09/20/20 23:02 Total Counted 100 09/20/20 23:02 Seg Neutrophils % 86.5 % (40.0-70.0) H 09/28/20 04:29 Seg Neuts % (Manual) 34.0 % (40.0-70.0) L 09/20/20 23:02 Lymphocytes % (Manual) 57.0 % (13.4-35.0) H 09/20/20 23:02 Monocytes % (Manual) 6.0 % (0.0-7.3) 09/20/20 23:02 Eosinophils % (Manual) 2.0 % (0.0-4.3) 09/20/20 23:02 Basophils % (Manual) 1.0 % (0.0-1.8) 09/20/20 23:02 Nucleated RBC % Not Reportable 09/20/20 23:02 Seg Neutrophils # 14.4 K/mm3 (1.8-7.7) H 09/28/20 04:29 Seg Neutrophils # Man 1.9 K/mm3 (1.8-7.7) 09/20/20 23:02 Band Neutrophils # 0.0 K/mm3 09/20/20 23:02 Lymphocytes # (Manual) 3.2 K/mm3 (1.2-5.4) 09/20/20 23:02 Abs React Lymphs (Man) 0.0 K/mm3 09/20/20 23:02 Monocytes # (Manual) 0.3 K/mm3 (0.0-0.8) 09/20/20 23:02 Eosinophils # (Manual) 0.1 K/mm3 (0.0-0.4) 09/20/20 23:02 Basophils # (Manual) 0.1 K/mm3 (0.0-0.1) 09/20/20 23:02 Metamyelocytes # 0.0 K/mm3 09/20/20 23:02 Myelocytes # 0.0 K/mm3 09/20/20 23:02 Promyelocytes # 0.0 K/mm3 09/20/20 23:02 Blast Cells # 0.0 K/mm3 09/20/20 23:02 WBC Morphology Not Reportable 09/20/20 23:02 Hypersegmented Neuts Not Reportable 09/20/20 23:02 Hyposegmented Neuts Not Reportable 09/20/20 23:02 Hypogranular Neuts Not Reportable 09/20/20 23:02 Smudge Cells Not Reportable 09/20/20 23:02 Toxic Granulation Not Reportable 09/20/20 23:02 Toxic Vacuolation Not Reportable 09/20/20 23:02 Dohle Bodies Not Reportable 09/20/20 23:02 Pelger-Huet Anomaly Not Reportable 09/20/20 23:02 Santosh Rods Not Reportable 09/20/20 23:02 Platelet Estimate Not Reportable 09/20/20 23:02 Clumped Platelets Not Reportable 09/20/20 23:02 Plt Clumps, EDTA Not Reportable 09/20/20 23:02 Large Platelets Not Reportable 09/20/20 23:02 Giant Platelets Not Reportable 09/20/20 23:02 Platelet Satelliting Not Reportable 09/20/20 23:02 Plt Morphology Comment Not Reportable 09/20/20 23:02 RBC Morphology Normal 09/20/20 23:02 Dimorphic RBCs Not Reportable 09/20/20 23:02 Polychromasia Not Reportable 09/20/20 23:02 Hypochromasia Not Reportable 09/20/20 23:02 Poikilocytosis Not Reportable 09/20/20 23:02 Anisocytosis Not Reportable 09/20/20 23:02 Microcytosis Not Reportable 09/20/20 23:02 Macrocytosis Not Reportable 09/20/20 23:02 Spherocytes Not Reportable 09/20/20 23:02 Pappenheimer Bodies Not Reportable 09/20/20 23:02 Sickle Cells Not Reportable 09/20/20 23:02 Target Cells Not Reportable 09/20/20 23:02 Tear Drop Cells Not Reportable 09/20/20 23:02 Ovalocytes Not Reportable 09/20/20 23:02 Helmet Cells Not Reportable 09/20/20 23:02 [place] Bodies Not Reportable 09/20/20 23:02 [place] Rings Not Reportable 09/20/20 23:02 Melly Cells Not Reportable 09/20/20 23:02 Bite Cells Not Reportable 09/20/20 23:02 Crenated Cell Not Reportable 09/20/20 23:02 Elliptocytes Not Reportable 09/20/20 23:02 Acanthocytes (Spur) Not Reportable 09/20/20 23:02 Rouleaux Not Reportable 09/20/20 23:02 Hemoglobin C Crystals Not Reportable 09/20/20 23:02 Schistocytes Not Reportable 09/20/20 23:02 Malaria parasites Not Reportable 09/20/20 23:02 Eduardo Bodies Not Reportable 09/20/20 23:02 Hem Pathologist Commnt No 09/20/20 23:02 PT 15.5 Sec. (12.2-14.9) H 09/22/20 08:26 INR 1.25 (0.87-1.13) H 09/22/20 08:26 APTT 30.6 Sec. (24.2-36.6) 09/21/20 10:08 ABG pH 7.439 (7.320-7.450) 09/28/20 03:01 POC ABG pCO2 30.0 mmHg (32.0-48.0) L 09/28/20 03:01 ABG pCO2 40.5 mm Hg 09/21/20 02:15 POC ABG pO2 72.7 mmHg (83-108) L 09/28/20 03:01 ABG pO2 244.1 mm Hg (80.0-90.0) H 09/21/20 02:15 POC ABG HCO3 19.9 09/28/20 03:01 ABG HCO3 17.7 mmol/L (20.0-26.0) L 09/21/20 02:15 ABG O2 Saturation 95.7 (0-100) 09/28/20 03:01 ABG O2 Content 24.2 (0.0-44) 09/21/20 02:15 POC ABG Base Excess -3.2 09/28/20 03:01 ABG Base Excess -8.8 mmol/L (-2.0-3.0) L 09/21/20 02:15 ABG Hemoglobin 13.0 (12.0-17.5) 09/28/20 03:01 ABG Oxyhemoglobin 94.8 (94-98) 09/28/20 03:01 ABG Carboxyhemoglobin 1.3 % (0.0-5.0) 09/21/20 02:15 ABG Methemoglobin 0.3 (0.0-1.5) 09/28/20 03:01 ABG Sodium 159.8 mmol/L (136.0-145.0) H 09/28/20 03:01 ABG Potassium 3.5 mmol/L (3.40-4.50) 09/28/20 03:01 ABG Chloride 131.0 mmol/L (98-107) H 09/28/20 03:01 ABG Glucose 156 mg/dL (65-95) H 09/28/20 03:01 Oxyhemoglobin 97.4 % (95.0-99.0) 09/21/20 02:15 Carboxyhemoglobin 0.6 (0.5-1.5) 09/28/20 03:01 FiO2 21 % 09/21/20 02:15 FiO2 % 35.0 09/28/20 03:01 Sodium 161 mmol/L (137-145) H* 09/28/20 12:51 Potassium 3.7 mmol/L (3.6-5.0) 09/28/20 12:51 Chloride 129.8 mmol/L (98-107) H 09/28/20 12:51 Carbon Dioxide 20 mmol/L (22-30) L 09/28/20 12:51 Anion Gap 15 mmol/L 09/28/20 12:51 BUN 80 mg/dL (9-20) H 09/28/20 12:51 Creatinine 2.9 mg/dL (0.8-1.3) H 09/28/20 12:51 Estimated GFR 28 ml/min 09/28/20 12:51 BUN/Creatinine Ratio 28 % 09/28/20 12:51 Glucose 139 mg/dL (75-100) H 09/28/20 12:51 POC Glucose 115 mg/dL (70-105) H 09/28/20 12:01 Lactic Acid 1.00 mmol/L (0.7-2.0) 09/24/20 04:00 Calcium 8.3 mg/dL (8.4-10.2) L 09/28/20 12:51 Phosphorus 2.50 mg/dL (2.5-4.5) D 09/27/20 04:40 Total Bilirubin 0.30 mg/dL (0.1-1.2) 09/20/20 23:02 AST 59 units/L (5-40) H 09/20/20 23:02 ALT 30 units/L (7-56) 09/20/20 23:02 Alkaline Phosphatase 88 units/L (35-129) 09/20/20 23:02 Total Creatine Kinase 3606 units/L (55-170) H 09/21/20 15:54 Troponin T 1.880 ng/mL (0.00-0.029) H* D 09/21/20 04:34 Total Protein 7.0 g/dL (6.3-8.2) 09/20/20 23:02 Albumin 4.1 g/dL (3.9-5) 09/20/20 23:02 Albumin/Globulin Ratio 1.4 % 09/20/20 23:02 Triglycerides 43 mg/dL (2-149) 09/21/20 02:01 Cholesterol 152 mg/dL (50-199) 09/21/20 02:01 LDL Cholesterol Direct 92 mg/dL (50-130) 09/21/20 02:01 HDL Cholesterol 60 mg/dL (40-59) H 09/21/20 02:01 Cholesterol/HDL Ratio 2.53 % 09/21/20 02:01 Arterial Blood Glucose 156 mg/dL (65-95) H 09/28/20 03:01 Arterial Blood Ionized Calcium 5.0 mg/dL (4.6-5.3) 09/28/20 03:01 Urine Color Yellow (Yellow) 09/26/20 13:38 Urine Turbidity Turbid (Clear) 09/26/20 13:38 Urine pH 5.0 (5.0-7.0) 09/26/20 13:38 Ur Specific [place] 1.018 (1.003-1.030) 09/26/20 13:38 Urine Protein 100 mg/dl mg/dL (Negative) 09/26/20 13:38 Urine Glucose (UA) Neg mg/dL (Negative) 09/26/20 13:38 Urine Ketones Neg mg/dL (Negative) 09/26/20 13:38 Urine Blood Mod (Negative) 09/26/20 13:38 Urine Nitrite Neg (Negative) 09/26/20 13:38 Urine Bilirubin Neg (Negative) 09/26/20 13:38 Urine Urobilinogen < 2.0 mg/dL (<2.0) 09/26/20 13:38 Ur Leukocyte Esterase Neg (Negative) 09/26/20 13:38 Urine WBC (Auto) 8.0 /HPF (0.0-6.0) H 09/26/20 13:38 Urine RBC (Auto) 10.0 /HPF (0.0-6.0) 09/26/20 13:38 U Epithel Cells (Auto) 2.0 /HPF (0-13.0) 09/26/20 13:38 Urine Bacteria (Auto) 2+ /HPF (Negative) 09/21/20 14:27 Uric Acid Crystals 3+ 09/26/20 13:38 Urine Mucus 1+ /HPF 09/26/20 13:38 Urine Yeast (Budding) 2+ /HPF 09/20/20 23:35 Urine Sperm Few /HPF (S[employer]ILL[employer]OR OPERATOR) 09/26/20 13:38 Urine Creatinine 60.4 mg/dL (0.1-20.0) H 09/21/20 14:27 Urine Sodium 108 mmol/L 09/21/20 14:27 Urine Urea Nitrogen 305 09/21/20 14:27 Nasal Screen MRSA (PCR) Positive (Negative) 09/25/20 17:55 Urine Opiates Screen Presumptive negative 09/20/20 Unknown Urine Methadone Screen Presumptive negative 09/20/20 Unknown Ur Barbiturates Screen Presumptive negative 09/20/20 Unknown Ur Phencyclidine Scrn Presumptive negative 09/20/20 Unknown Ur Amphetamines Screen Presumptive negative 09/20/20 Unknown U Benzodiazepines Scrn Presumptive negative 09/20/20 Unknown Urine Cocaine Screen Presumptive negative 09/20/20 Unknown U Marijuana (THC) Screen Presumptive positive 09/20/20 Unknown Drugs of Abuse Note Disclamer 09/20/20 Unknown Coronavirus (PCR) Negative (Negative) 09/21/20 10:13 Microbiology: Microbiology 09/26/20 16:14 Tracheal Aspirate Sputum Culture - Preliminary Staphylococcus Aureus 09/25/20 16:57 Tracheal Aspirate Sputum Culture - Preliminary Staphylococcus Aureus 09/26/20 14:03 Urine,Catheterized - Indwelling Catheter Urine Culture - Final NO GROWTH AFTER 48 HOURS 09/25/20 14:50 Peripheral/Venous Blood Culture - Preliminary NO GROWTH AFTER 48 HOURS 09/25/20 14:50 Peripheral/Venous Blood Culture - Preliminary NO GROWTH AFTER 48 HOURS Park/IV: Voiding Method Indwelling Catheter Active Medications - Current Medications Current Medications: Generic Name Dose Route Start Last Admin Trade Name Freq PRN Reason Stop Dose Admin Acetaminophen 650 mg 09/21/20 15:51 09/28/20 00:14 Acetaminophen 325 Mg/10.15 Ml Oral Liqd Unit Dose FEEDTUBE 650 mg Q6H PRN Administration Pain, Mild (1-3) Lipase/Protease/Amylase 1 each 09/25/20 14:22 Lipase 10,500/Protease 25,000/Amylase 43,750 (Units) Dr Cap FEEDTUBE PRN PRN For Clogged Feeding Tube Aspirin 325 mg 09/21/20 16:00 09/28/20 09:37 Aspirin 325 Mg Tab PO 325 mg QDAY PATSY Administration Atorvastatin Calcium 40 mg 09/23/20 22:00 09/27/20 21:13 Atorvastatin 40 Mg Tab PO 40 mg QHS PATSY Administration Famotidine 20 mg 09/25/20 10:00 09/28/20 09:37 Famotidine 20 Mg Tab PO 20 mg DAILY PATSY Administration Heparin Sodium (Porcine) 5,000 unit 09/21/20 22:00 09/28/20 09:37 Heparin 5,000 Unit/1 Ml Vial SUB-Q 5,000 unit Q12HR PATSY Administration Hydralazine HCl 5 mg 09/23/20 14:00 09/28/20 13:50 Hydralazine 20 Mg/1 Ml Inj IV Not Given Q4HR [facility] Hydrophilic Ointment 1 applic 09/20/20 22:59 Lip Therapy Vaseline TP Q2HR PRN Dry Lips Norepinephrine 4 mg in 250 mls @ 7.5 mls/hr 09/21/20 05:00 Levophed Drip 4 Mg/Ns 250 Ml IV TITR PATSY Protocol 2 MCG/MIN Fentanyl Citrate 2,000 mcg in 100 mls @ 5.105 mls/hr 09/22/20 11:30 09/25/20 18:17 Fentanyl Drip Premix IV 0 mcg/kg/hr TITR PATSY 0 mls/hr Titration Protocol 1 MCG/KG/HR Dextrose 1,000 mls @ 75 mls/hr 09/27/20 17:00 09/28/20 09:43 D5w IV 0 mls/hr DIRECT PATSY Infusion Linezolid 600 mg 09/27/20 12:00 09/28/20 09:36 Linezolid 600 Mg Tab PO 10/03/20 22:01 600 mg Q12HR PATSY Administration Protocol Metoprolol Tartrate 50 mg 09/27/20 18:00 09/28/20 13:00 Metoprolol Tartrate 50 Mg Tab PO Not Given Q6HR [facility] Multi-Ingred Cream/Lotion/Oil/Oint 1 applic 09/20/20 22:59 Mineral Oil/Petrolatum, White Ophth Oint 3.5 Gm OU Q4HR PRN Dry Eye(s) Ondansetron HCl 4 mg 09/21/20 01:24 Ondansetron 4 Mg/2 Ml Inj IV Q8H PRN Nausea And Vomiting Simple Syrup 15 ml 09/25/20 14:22 Simple Syrup 15 Ml FEEDTUBE PRN PRN Hypoglycemia Simple Syrup 30 ml 09/25/20 14:22 Simple Syrup 15 Ml FEEDTUBE PRN PRN Hypoglycemia Sodium Bicarbonate 325 mg 09/25/20 14:22 Sodium Bicarbonate 325 Mg Tab FEEDTUBE PRN PRN For Clogged Feeding Tube Sodium Chloride 10 ml 09/21/20 10:00 09/28/20 10:32 Sodium Chloride 0.9% 10 Ml Flush Syringe IV 10 ml BID PATSY Administration Sodium Chloride 10 ml 09/21/20 01:24 09/24/20 18:21 Sodium Chloride 0.9% 10 Ml Flush Syringe IV 10 ml PRN PRN Administration LINE FLUSH Nutrition/Malnutrition Assess - Dietary Evaluation Nutrition/Malnutrition Findings: Nutrition Notes Start: 09/21/20 08:17 Freq: Status: Active Protocol: Document 09/27/20 13:10 AL (Rec: 09/27/20 13:17 AL [id number]) Co-Sign 09/27/20 13:10 LP Nutrition Notes Initial or Follow up Reassessment Current Diagnosis Acute Kidney Injury, Respiratory Failure Other Pertinent Diagnosis s/p cardiopulmonary arrest, UTI, anoxic encephalopathy with global edema Current Diet TF - Vital AF 1.2 at 65ml/hr Labs/Tests Na 162 BUN 63 Cr 2.6 Pertinent Medications D5W at 50 ml/hr Height 6 ft Weight 102.1 kg [place] Body Weight (kg) 80.90 BMI 30.5 Weight Status Obese Subjective/Other Information F/U for TF tolerance. Pt still intubated. Per RN, pt tolerating TF with no residuals. Flushing at 300 ml q4h until hypernatremia resolves Percent of energy/protein needs met: 100%/72% Burn Absent Trauma Absent GI Symptoms None Current % PO Negligible Minimum of two criteria No physical signs of malnutrition #1 Nutrition Diagnosis Inadequate oral intake Diagnosis Progress(for reassessment Continues documentation) Is patient on ventilator? Yes Is Patient Ambulatory and/or Out of Bed No REE-([facility]-confined to bed) 2318.184 Kcal/Kg value to use for calculation 18 Approximate Energy Requirements Using 1838 kcal/Kg Calculation Used for Recommendations Kcal/kg Additional Notes Pro needs >2g/kg IBW: >162g/ day Fluid needs 1ml/kcal Nutrition Intervention Change Diet Order: Continue TF Nutrition Support: Vital AF 1.2 at 65ml/hr with 300ml water flush q4h until hypernatremia resolves. Once hypernatremia resolves, continue free water flush of 100 ml q4h. [ End ] Kcal 1,872 Protein (gm) 117 Fluid (mL) 1,265 Goal #1 TF tolerance Goal #2 TF to meet needs as best possible Anticipated Discharge Needs: Unable to determine at the time. Follow-Up By: 09/29/20 Additional Comments F/U: TF tolerance and Na labs and water flushes.
--- NOTE | 2020-09-28 18:09 | Progress Note ---
Assessment and Plan Imp: 1. S/p CP arrest 2. Severe dilated CMP 3. Chronic systolic CHF 4. Anoxic encephalopathy 5. Acute respiratory failure, hypoxia 6. JAMEY 7. Hypernatremia Rec: 1. Hold sedation 2. Mentation precludes extubation 3. F/u ID and cardiology recs; agree fevers likely central in origin, though on Zyvox for Staph aureus in sputum 4. TFs, SubQ heparin, Pepcid; free water flushes and D5W per renal; f/u labs in AM 5. Should strongly consider withdrawal of care/hospice; neurology eval. pending 6. High complexity No family present today Subjective Date of service: 09/28/20 Principal diagnosis: Acute respiratory failure Interval history: No events. Off sedation and unresponsive on ventilator. Active Medications Acetaminophen (Acetaminophen 325 Mg/10.15 Ml Oral Liqd Unit Dose) 650 mg FEEDTUBE Q6H PRN PRN Reason: Pain, Mild (1-3) Last Admin: 09/28/20 17:49 Dose: 650 mg Documented by: Lipase/Protease/Amylase (Lipase 10,500/Protease 25,000/Amylase 43,750 (Units) Dr Cap) 1 each FEEDTUBE PRN PRN PRN Reason: For Clogged Feeding Tube Aspirin (Aspirin 325 Mg Tab) 325 mg PO QDAY [facility] Last Admin: 09/28/20 09:37 Dose: 325 mg Documented by: Atorvastatin Calcium (Atorvastatin 40 Mg Tab) 40 mg PO QHS [facility] Last Admin: 09/27/20 21:13 Dose: 40 mg Documented by: Famotidine (Famotidine 20 Mg Tab) 20 mg PO DAILY [facility] Last Admin: 09/28/20 09:37 Dose: 20 mg Documented by: Heparin Sodium (Porcine) (Heparin 5,000 Unit/1 Ml Vial) 5,000 unit SUB-Q Q12HR [facility] Last Admin: 09/28/20 09:37 Dose: 5,000 unit Documented by: Hydralazine HCl (Hydralazine 20 Mg/1 Ml Inj) 5 mg IV Q4HR [facility] Last Admin: 09/28/20 18:48 Dose: Not Given Documented by: Hydrophilic Ointment (Lip Therapy Vaseline) 1 applic TP Q2HR PRN PRN Reason: Dry Lips Norepinephrine (Levophed Drip 4 Mg/Ns 250 Ml) 4 mg in 250 mls @ 7.5 mls/hr IV T ITR PAT[place]; Protocol Fentanyl Citrate (Fentanyl Drip Premix) 2,000 mcg in 100 mls @ 5.105 mls/hr IV TITR [facility]; Protocol Last Titration: 09/25/20 18:17 Dose: 0 mcg/kg/hr, 0 mls/hr Documented by: Dextrose (D5w) 1,000 mls @ 100 mls/hr IV DIRECT PATSY Linezolid (Linezolid 600 Mg Tab) 600 mg PO Q12HR [facility]; Protocol Stop: 10/03/20 22:01 Last Admin: 09/28/20 09:36 Dose: 600 mg Documented by: Metoprolol Tartrate (Metoprolol Tartrate 50 Mg Tab) 50 mg PO Q6HR [facility] Last Admin: 09/28/20 18:49 Dose: Not Given Documented by: Multi-Ingred Cream/Lotion/Oil/Oint (Mineral Oil/Petrolatum, White Ophth Oint 3.5 Gm) 1 applic OU Q4HR PRN PRN Reason: Dry Eye(s) Ondansetron HCl (Ondansetron 4 Mg/2 Ml Inj) 4 mg IV Q8H PRN PRN Reason: Nausea And Vomiting Simple Syrup (Simple Syrup 15 Ml) 15 ml FEEDTUBE PRN PRN PRN Reason: Hypoglycemia Simple Syrup (Simple Syrup 15 Ml) 30 ml FEEDTUBE PRN PRN PRN Reason: Hypoglycemia Sodium Bicarbonate (Sodium Bicarbonate 325 Mg Tab) 325 mg FEEDTUBE PRN PRN PRN Reason: For Clogged Feeding Tube Sodium Chloride (Sodium Chloride 0.9% 10 Ml Flush Syringe) 10 ml IV BID [facility] Last Admin: 09/28/20 10:32 Dose: 10 ml Documented by: Sodium Chloride (Sodium Chloride 0.9% 10 Ml Flush Syringe) 10 ml IV PRN PRN PRN Reason: LINE FLUSH Last Admin: 09/24/20 18:21 Dose: 10 ml Documented by: Objective Vital Signs - 12hr 09/28/20 09/28/20 09/28/20 06:21 06:22 06:30 Temperature Pulse Rate 97 H 95 H 97 H Respiratory 29 H Rate Blood Pressure 108/58 108/58 117/58 O2 Sat by Pulse 95 Oximetry 09/28/20 09/28/20 09/28/20 07:00 07:30 07:34 Temperature 101.0 F H Pulse Rate 105 H 93 H Respiratory 28 H 27 H Rate Blood Pressure 105/73 97/59 O2 Sat by Pulse 95 95 Oximetry 09/28/20 09/28/20 09/28/20 08:00 08:30 08:51 Temperature Pulse Rate 104 H 90 95 H Respiratory 29 H 30 H Rate Blood Pressure 117/58 99/68 99/68 O2 Sat by Pulse 94 92 100 Oximetry 09/28/20 09/28/20 09/28/20 08:54 09:00 09:30 Temperature Pulse Rate 96 H 97 H 96 H Respiratory 31 H 32 H 29 H Rate Blood Pressure 99/68 101/64 98/71 O2 Sat by Pulse 99 96 97 Oximetry 09/28/20 09/28/20 09/28/20 09:50 10:00 10:30 Temperature Pulse Rate 94 H 95 H 103 H Respiratory 28 H 32 H Rate Blood Pressure 98/71 106/62 112/71 O2 Sat by Pulse 97 96 Oximetry 09/28/20 09/28/20 09/28/20 11:00 11:30 12:00 Temperature Pulse Rate 105 H 105 H 106 H Respiratory 33 H 30 H 31 H Rate Blood Pressure 110/69 115/69 108/69 O2 Sat by Pulse 97 96 95 Oximetry 09/28/20 09/28/20 09/28/20 12:23 12:30 12:43 Temperature 99.4 F Pulse Rate 101 H 94 H Respiratory 20 29 H Rate Blood Pressure 116/63 116/63 O2 Sat by Pulse 98 95 Oximetry 09/28/20 09/28/20 09/28/20 13:00 13:30 13:50 Temperature Pulse Rate 103 H 99 H 105 H Respiratory 31 H 31 H Rate Blood Pressure 105/66 107/70 107/79 O2 Sat by Pulse 96 96 Oximetry 09/28/20 09/28/20 09/28/20 14:00 14:30 15:00 Temperature 101.1 F H Pulse Rate 105 H 107 H 106 H Respiratory 32 H 32 H 29 H Rate Blood Pressure 101/61 105/72 103/67 O2 Sat by Pulse 96 97 96 Oximetry 09/28/20 16:10 Temperature Pulse Rate 107 H Respiratory Rate Blood Pressure 96/69 O2 Sat by Pulse 100 Oximetry Constitutional: other (on vent not responsive no sedation) Eyes: non-icteric ENT: other (intubated, critically ill) Neck: supple Effort: normal Ascultation: Bilateral: clear Cardiovascular: other (sinus tachycardia) Gastrointestinal: normoactive bowel sounds, soft Integumentary: normal Extremities: no cyanosis, no edema, pink and warm Neurologic: other (comatose/unresponsive) Psychiatric: other (unable to assess) CBC and BMP: 09/28/20 04:29 09/28/20 12:51 ABG, PT/INR, D-dimer: ABG ABG pH 7.439 (7.320-7.450) 09/28/20 03:01 POC ABG pCO2 30.0 mmHg (32.0-48.0) L 09/28/20 03:01 ABG pCO2 40.5 mm Hg 09/21/20 02:15 POC ABG pO2 72.7 mmHg (83-108) L 09/28/20 03:01 ABG pO2 244.1 mm Hg (80.0-90.0) H 09/21/20 02:15 POC ABG HCO3 19.9 09/28/20 03:01 ABG O2 Saturation 95.7 (0-100) 09/28/20 03:01 PT/INR, D-dimer PT 15.5 Sec. (12.2-14.9) H 09/22/20 08:26 INR 1.25 (0.87-1.13) H 09/22/20 08:26 Abnormal lab findings: Abnormal Labs 09/20/20 09/20/20 09/20/20 23:02 23:02 23:02 WBC RBC Hgb Hct MCV 96 H RDW 15.8 H Plt Count Lymph % (Auto) [place] % (Auto) Lymph # (Auto) [place] # (Auto) Seg Neutrophils % Seg Neuts % (Manual) 34.0 L Lymphocytes % (Manual) 57.0 H Seg Neutrophils # PT INR 1.14 H ABG pH POC ABG pCO2 POC ABG pO2 ABG pO2 ABG HCO3 ABG O2 Saturation ABG Base Excess ABG Oxyhemoglobin ABG Sodium ABG Potassium ABG Chloride ABG Glucose Sodium Potassium Chloride Carbon Dioxide 21 L BUN 26 H Creatinine 2.1 H Glucose 227 H POC Glucose Lactic Acid Calcium 10.3 H Phosphorus AST 59 H Total Creatine Kinase Troponin T HDL Cholesterol Arterial Blood Glucose Arterial Blood Ionized Calcium Urine WBC (Auto) Urine Creatinine 09/20/20 09/20/20 09/21/20 23:15 23:35 01:20 WBC RBC Hgb Hct MCV RDW Plt Count Lymph % (Auto) [place] % (Auto) Lymph # (Auto) [place] # (Auto) Seg Neutrophils % Seg Neuts % (Manual) Lymphocytes % (Manual) Seg Neutrophils # PT INR ABG pH POC ABG pCO2 POC ABG pO2 ABG pO2 ABG HCO3 ABG O2 Saturation ABG Base Excess ABG Oxyhemoglobin ABG Sodium ABG Potassium ABG Chloride ABG Glucose Sodium Potassium Chloride Carbon Dioxide BUN Creatinine Glucose POC Glucose 197 H Lactic Acid 8.70 H* Calcium Phosphorus AST Total Creatine Kinase Troponin T HDL Cholesterol Arterial Blood Glucose Arterial Blood Ionized Calcium Urine WBC (Auto) 47.0 H Urine Creatinine 09/21/20 09/21/20 09/21/20 02:01 02:15 04:25 WBC RBC Hgb Hct MCV RDW Plt Count Lymph % (Auto) [place] % (Auto) Lymph # (Auto) [place] # (Auto) Seg Neutrophils % Seg Neuts % (Manual) Lymphocytes % (Manual) Seg Neutrophils # PT INR ABG pH 7.258 L POC ABG pCO2 POC ABG pO2 ABG pO2 244.1 H ABG HCO3 17.7 L ABG O2 Saturation 99.4 H ABG Base Excess -8.8 L ABG Oxyhemoglobin ABG Sodium ABG Potassium ABG Chloride ABG Glucose Sodium Potassium Chloride Carbon Dioxide BUN Creatinine Glucose POC Glucose 65 L Lactic Acid Calcium Phosphorus AST Total Creatine Kinase Troponin T 0.865 H* D HDL Cholesterol 60 H Arterial Blood Glucose Arterial Blood Ionized Calcium Urine WBC (Auto) Urine Creatinine 09/21/20 09/21/20 09/21/20 04:34 04:34 07:03 WBC RBC Hgb 16.9 H D Hct 51.3 H D MCV RDW Plt Count Lymph % (Auto) [place] % (Auto) Lymph # (Auto) [place] # (Auto) Seg Neutrophils % Seg Neuts % (Manual) Lymphocytes % (Manual) Seg Neutrophils # PT INR ABG pH POC ABG pCO2 POC ABG pO2 ABG pO2 ABG HCO3 ABG O2 Saturation ABG Base Excess ABG Oxyhemoglobin ABG Sodium ABG Potassium ABG Chloride ABG Glucose Sodium Potassium Chloride Carbon Dioxide BUN Creatinine Glucose POC Glucose Lactic Acid 3.00 H* Calcium Phosphorus AST Total Creatine Kinase Troponin T 1.880 H* D HDL Cholesterol Arterial Blood Glucose Arterial Blood Ionized Calcium Urine WBC (Auto) Urine Creatinine 09/21/20 09/21/20 09/21/20 07:03 07:32 07:53 WBC 19.2 H RBC 5.31 H Hgb 16.0 H Hct 49.0 H MCV RDW 15.7 H Plt Count Lymph % (Auto) [place] % (Auto) Lymph # (Auto) [place] # (Auto) Seg Neutrophils % Seg Neuts % (Manual) Lymphocytes % (Manual) Seg Neutrophils # PT 16.3 H INR 1.31 H ABG pH POC ABG pCO2 POC ABG pO2 ABG pO2 ABG HCO3 ABG O2 Saturation ABG Base Excess ABG Oxyhemoglobin ABG Sodium ABG Potassium ABG Chloride ABG Glucose Sodium Potassium Chloride Carbon Dioxide BUN Creatinine Glucose POC Glucose 60 L Lactic Acid Calcium Phosphorus AST Total Creatine Kinase Troponin T HDL Cholesterol Arterial Blood Glucose Arterial Blood Ionized Calcium Urine WBC (Auto) Urine Creatinine 09/21/20 09/21/20 09/21/20 07:53 09:30 10:08 WBC RBC Hgb Hct MCV RDW Plt Count Lymph % (Auto) [place] % (Auto) Lymph # (Auto) [place] # (Auto) Seg Neutrophils % Seg Neuts % (Manual) Lymphocytes % (Manual) Seg Neutrophils # PT 15.4 H INR 1.24 H ABG pH POC ABG pCO2 POC ABG pO2 ABG pO2 ABG HCO3 ABG O2 Saturation ABG Base Excess ABG Oxyhemoglobin ABG Sodium ABG Potassium ABG Chloride ABG Glucose Sodium 146 H Potassium 3.5 L Chloride 109.6 H Carbon Dioxide 20 L BUN 37 H Creatinine 2.8 H Glucose 127 H POC Glucose Lactic Acid 3.00 H* Calcium Phosphorus AST Total Creatine Kinase Troponin T HDL Cholesterol Arterial Blood Glucose Arterial Blood Ionized Calcium Urine WBC (Auto) Urine Creatinine 09/21/20 09/21/20 09/21/20 10:34 11:22 11:44 WBC RBC Hgb Hct MCV RDW Plt Count Lymph % (Auto) [place] % (Auto) Lymph # (Auto) [place] # (Auto) Seg Neutrophils % Seg Neuts % (Manual) Lymphocytes % (Manual) Seg Neutrophils # PT INR ABG pH POC ABG pCO2 25.9 L POC ABG pO2 196.9 H ABG pO2 ABG HCO3 ABG O2 Saturation ABG Base Excess ABG Oxyhemoglobin 98.4 H ABG Sodium ABG Potassium 3.3 L ABG Chloride 113.0 H ABG Glucose 130 H Sodium Potassium Chloride Carbon Dioxide BUN Creatinine Glucose POC Glucose 126 H 127 H Lactic Acid Calcium Phosphorus AST Total Creatine Kinase Troponin T HDL Cholesterol Arterial Blood Glucose 130 H Arterial Blood Ionized Calcium Urine WBC (Auto) Urine Creatinine 09/21/20 09/21/20 09/21/20 14:27 14:27 15:09 WBC RBC Hgb Hct MCV RDW Plt Count Lymph % (Auto) [place] % (Auto) Lymph # (Auto) [place] # (Auto) Seg Neutrophils % Seg Neuts % (Manual) Lymphocytes % (Manual) Seg Neutrophils # PT INR ABG pH POC ABG pCO2 POC ABG pO2 ABG pO2 ABG HCO3 ABG O2 Saturation ABG Base Excess ABG Oxyhemoglobin ABG Sodium ABG Potassium ABG Chloride ABG Glucose Sodium Potassium Chloride Carbon Dioxide BUN Creatinine Glucose POC Glucose 135 H Lactic Acid Calcium Phosphorus AST Total Creatine Kinase Troponin T HDL Cholesterol Arterial Blood Glucose Arterial Blood Ionized Calcium Urine WBC (Auto) 12.0 H Urine Creatinine 60.4 H 09/21/20 09/21/20 09/21/20 15:54 15:54 16:13 WBC RBC Hgb Hct MCV RDW Plt Count Lymph % (Auto) [place] % (Auto) Lymph # (Auto) [place] # (Auto) Seg Neutrophils % Seg Neuts % (Manual) Lymphocytes % (Manual) Seg Neutrophils # PT INR ABG pH POC ABG pCO2 POC ABG pO2 ABG pO2 ABG HCO3 ABG O2 Saturation ABG Base Excess ABG Oxyhemoglobin ABG Sodium ABG Potassium ABG Chloride ABG Glucose Sodium Potassium Chloride Carbon Dioxide BUN Creatinine Glucose POC Glucose 131 H Lactic Acid 3.60 H* Calcium Phosphorus AST Total Creatine Kinase 3606 H Troponin T HDL Cholesterol Arterial Blood Glucose Arterial Blood Ionized Calcium Urine WBC (Auto) Urine Creatinine 09/21/20 09/21/20 09/21/20 18:02 19:48 20:57 WBC RBC Hgb Hct MCV RDW Plt Count Lymph % (Auto) [place] % (Auto) Lymph # (Auto) [place] # (Auto) Seg Neutrophils % Seg Neuts % (Manual) Lymphocytes % (Manual) Seg Neutrophils # PT INR ABG pH POC ABG pCO2 POC ABG pO2 ABG pO2 ABG HCO3 ABG O2 Saturation ABG Base Excess ABG Oxyhemoglobin ABG Sodium ABG Potassium ABG Chloride ABG Glucose Sodium Potassium Chloride Carbon Dioxide BUN Creatinine Glucose POC Glucose 139 H 184 H 173 H Lactic Acid Calcium Phosphorus AST Total Creatine Kinase Troponin T HDL Cholesterol Arterial Blood Glucose Arterial Blood Ionized Calcium Urine WBC (Auto) Urine Creatinine 09/21/20 09/21/20 09/21/20 22:02 22:27 23:54 WBC RBC Hgb Hct MCV RDW Plt Count Lymph % (Auto) [place] % (Auto) Lymph # (Auto) [place] # (Auto) Seg Neutrophils % Seg Neuts % (Manual) Lymphocytes % (Manual) Seg Neutrophils # PT INR ABG pH POC ABG pCO2 POC ABG pO2 ABG pO2 ABG HCO3 ABG O2 Saturation ABG Base Excess ABG Oxyhemoglobin ABG Sodium ABG Potassium ABG Chloride ABG Glucose Sodium Potassium Chloride Carbon Dioxide BUN Creatinine Glucose POC Glucose 147 H 142 H 143 H Lactic Acid Calcium Phosphorus AST Total Creatine Kinase Troponin T HDL Cholesterol Arterial Blood Glucose Arterial Blood Ionized Calcium Urine WBC (Auto) Urine Creatinine 09/22/20 09/22/20 09/22/20 00:49 02:01 02:14 WBC RBC Hgb Hct MCV RDW Plt Count Lymph % (Auto) [place] % (Auto) Lymph # (Auto) [place] # (Auto) Seg Neutrophils % Seg Neuts % (Manual) Lymphocytes % (Manual) Seg Neutrophils # PT INR ABG pH POC ABG pCO2 POC ABG pO2 ABG pO2 ABG HCO3 ABG O2 Saturation ABG Base Excess ABG Oxyhemoglobin ABG Sodium ABG Potassium ABG Chloride ABG Glucose Sodium Potassium Chloride Carbon Dioxide BUN Creatinine Glucose POC Glucose 154 H 154 H 149 H Lactic Acid Calcium Phosphorus AST Total Creatine Kinase Troponin T HDL Cholesterol Arterial Blood Glucose Arterial Blood Ionized Calcium Urine WBC (Auto) Urine Creatinine 09/22/20 09/22/20 09/22/20 02:57 03:21 03:58 WBC RBC Hgb Hct MCV RDW Plt Count Lymph % (Auto) [place] % (Auto) Lymph # (Auto) [place] # (Auto) Seg Neutrophils % Seg Neuts % (Manual) Lymphocytes % (Manual) Seg Neutrophils # PT INR ABG pH 7.496 H POC ABG pCO2 25.0 L POC ABG pO2 73.8 L ABG pO2 ABG HCO3 ABG O2 Saturation ABG Base Excess ABG Oxyhemoglobin ABG Sodium ABG Potassium ABG Chloride 115.0 H ABG Glucose 154 H Sodium Potassium Chloride Carbon Dioxide BUN Creatinine Glucose POC Glucose 166 H 158 H Lactic Acid Calcium Phosphorus AST Total Creatine Kinase Troponin T HDL Cholesterol Arterial Blood Glucose 154 H Arterial Blood Ionized Calcium 4.5 L Urine WBC (Auto) Urine Creatinine 09/22/20 09/22/20 09/22/20 05:06 05:56 06:50 WBC RBC Hgb Hct MCV RDW Plt Count Lymph % (Auto) [place] % (Auto) Lymph # (Auto) [place] # (Auto) Seg Neutrophils % Seg Neuts % (Manual) Lymphocytes % (Manual) Seg Neutrophils # PT INR ABG pH POC ABG pCO2 POC ABG pO2 ABG pO2 ABG HCO3 ABG O2 Saturation ABG Base Excess ABG Oxyhemoglobin ABG Sodium ABG Potassium ABG Chloride ABG Glucose Sodium Potassium Chloride Carbon Dioxide BUN Creatinine Glucose POC Glucose 147 H 145 H 137 H Lactic Acid Calcium Phosphorus AST Total Creatine Kinase Troponin T HDL Cholesterol Arterial Blood Glucose Arterial Blood Ionized Calcium Urine WBC (Auto) Urine Creatinine 09/22/20 09/22/20 09/22/20 08:02 08:26 08:26 WBC 15.2 H RBC Hgb Hct MCV RDW 16.0 H Plt Count Lymph % (Auto) 7.6 L [place] % (Auto) Lymph # (Auto) [place] # (Auto) 1.0 H Seg Neutrophils % 86.0 H Seg Neuts % (Manual) Lymphocytes % (Manual) Seg Neutrophils # 13.0 H PT 15.5 H INR 1.25 H ABG pH POC ABG pCO2 POC ABG pO2 ABG pO2 ABG HCO3 ABG O2 Saturation ABG Base Excess ABG Oxyhemoglobin ABG Sodium ABG Potassium ABG Chloride ABG Glucose Sodium Potassium Chloride Carbon Dioxide BUN Creatinine Glucose POC Glucose 149 H Lactic Acid Calcium Phosphorus AST Total Creatine Kinase Troponin T HDL Cholesterol Arterial Blood Glucose Arterial Blood Ionized Calcium Urine WBC (Auto) Urine Creatinine 09/22/20 09/22/20 09/22/20 08:26 12:04 15:55 WBC RBC Hgb Hct MCV RDW Plt Count Lymph % (Auto) [place] % (Auto) Lymph # (Auto) [place] # (Auto) Seg Neutrophils % Seg Neuts % (Manual) Lymphocytes % (Manual) Seg Neutrophils # PT INR ABG pH POC ABG pCO2 POC ABG pO2 ABG pO2 ABG HCO3 ABG O2 Saturation ABG Base Excess ABG Oxyhemoglobin ABG Sodium ABG Potassium ABG Chloride ABG Glucose Sodium 146 H Potassium 3.5 L Chloride 114.0 H Carbon Dioxide 18 L BUN 46 H Creatinine 3.7 H Glucose 134 H POC Glucose 138 H 123 H Lactic Acid Calcium 7.7 L Phosphorus AST Total Creatine Kinase Troponin T HDL Cholesterol Arterial Blood Glucose Arterial Blood Ionized Calcium Urine WBC (Auto) Urine Creatinine 09/22/20 09/22/20 09/23/20 21:57 23:41 03:30 WBC 14.2 H RBC Hgb Hct MCV RDW 16.5 H Plt Count 126 L Lymph % (Auto) 8.2 L [place] % (Auto) 7.8 H Lymph # (Auto) [place] # (Auto) 1.1 H Seg Neutrophils % 83.8 H Seg Neuts % (Manual) Lymphocytes % (Manual) Seg Neutrophils # 11.9 H PT INR ABG pH POC ABG pCO2 POC ABG pO2 ABG pO2 ABG HCO3 ABG O2 Saturation ABG Base Excess ABG Oxyhemoglobin ABG Sodium ABG Potassium ABG Chloride ABG Glucose Sodium Potassium Chloride Carbon Dioxide BUN Creatinine Glucose POC Glucose 124 H 130 H Lactic Acid Calcium Phosphorus AST Total Creatine Kinase Troponin T HDL Cholesterol Arterial Blood Glucose Arterial Blood Ionized Calcium Urine WBC (Auto) Urine Creatinine 09/23/20 09/23/20 09/23/20 03:30 03:45 12:33 WBC RBC Hgb Hct MCV RDW Plt Count Lymph % (Auto) [place] % (Auto) Lymph # (Auto) [place] # (Auto) Seg Neutrophils % Seg Neuts % (Manual) Lymphocytes % (Manual) Seg Neutrophils # PT INR ABG pH POC ABG pCO2 POC ABG pO2 ABG pO2 ABG HCO3 ABG O2 Saturation ABG Base Excess ABG Oxyhemoglobin ABG Sodium ABG Potassium ABG Chloride ABG Glucose Sodium Potassium Chloride 110.4 H Carbon Dioxide 19 L BUN 56 H Creatinine 4.7 H Glucose 148 H POC Glucose 132 H 139 H Lactic Acid Calcium 7.4 L Phosphorus 5.80 H D AST Total Creatine Kinase Troponin T HDL Cholesterol Arterial Blood Glucose Arterial Blood Ionized Calcium Urine WBC (Auto) Urine Creatinine 09/23/20 09/23/20 09/24/20 17:54 23:18 02:57 WBC RBC Hgb Hct MCV RDW Plt Count Lymph % (Auto) [place] % (Auto) Lymph # (Auto) [place] # (Auto) Seg Neutrophils % Seg Neuts % (Manual) Lymphocytes % (Manual) Seg Neutrophils # PT INR ABG pH POC ABG pCO2 30.0 L POC ABG pO2 75.1 L ABG pO2 ABG HCO3 ABG O2 Saturation ABG Base Excess ABG Oxyhemoglobin ABG Sodium 149.5 H ABG Potassium ABG Chloride 119.0 H ABG Glucose 144 H Sodium Potassium Chloride Carbon Dioxide BUN Creatinine Glucose POC Glucose 115 H 139 H Lactic Acid Calcium Phosphorus AST Total Creatine Kinase Troponin T HDL Cholesterol Arterial Blood Glucose 144 H Arterial Blood Ionized Calcium Urine WBC (Auto) Urine Creatinine 09/24/20 09/24/20 09/24/20 04:20 04:30 05:10 WBC 14.3 H RBC Hgb Hct MCV RDW 16.6 H Plt Count 135 L Lymph % (Auto) 5.9 L [place] % (Auto) Lymph # (Auto) 0.8 L [place] # (Auto) 0.9 H Seg Neutrophils % 87.5 H Seg Neuts % (Manual) Lymphocytes % (Manual) Seg Neutrophils # 12.5 H PT INR ABG pH POC ABG pCO2 POC ABG pO2 ABG pO2 ABG HCO3 ABG O2 Saturation ABG Base Excess ABG Oxyhemoglobin ABG Sodium ABG Potassium ABG Chloride ABG Glucose Sodium 147 H Potassium Chloride 114.4 H Carbon Dioxide 19 L BUN 50 H Creatinine 3.2 H Glucose 142 H POC Glucose 137 H Lactic Acid Calcium 8.3 L Phosphorus AST Total Creatine Kinase Troponin T HDL Cholesterol Arterial Blood Glucose Arterial Blood Ionized Calcium Urine WBC (Auto) Urine Creatinine 09/24/20 09/24/20 09/24/20 12:03 17:39 23:15 WBC RBC Hgb Hct MCV RDW Plt Count Lymph % (Auto) [place] % (Auto) Lymph # (Auto) [place] # (Auto) Seg Neutrophils % Seg Neuts % (Manual) Lymphocytes % (Manual) Seg Neutrophils # PT INR ABG pH POC ABG pCO2 POC ABG pO2 ABG pO2 ABG HCO3 ABG O2 Saturation ABG Base Excess ABG Oxyhemoglobin ABG Sodium ABG Potassium ABG Chloride ABG Glucose Sodium Potassium Chloride Carbon Dioxide BUN Creatinine Glucose POC Glucose 120 H 155 H 109 H Lactic Acid Calcium Phosphorus AST Total Creatine Kinase Troponin T HDL Cholesterol Arterial Blood Glucose Arterial Blood Ionized Calcium Urine WBC (Auto) Urine Creatinine 09/25/20 09/25/20 09/25/20 03:02 05:16 07:50 WBC 14.0 H RBC Hgb Hct MCV RDW 16.5 H Plt Count Lymph % (Auto) 6.7 L [place] % (Auto) 9.1 H Lymph # (Auto) 0.9 L [place] # (Auto) 1.3 H Seg Neutrophils % 84.1 H Seg Neuts % (Manual) Lymphocytes % (Manual) Seg Neutrophils # 11.8 H PT INR ABG pH POC ABG pCO2 POC ABG pO2 67.4 L ABG pO2 ABG HCO3 ABG O2 Saturation ABG Base Excess ABG Oxyhemoglobin 92.3 L ABG Sodium 157.3 H ABG Potassium ABG Chloride 125.0 H ABG Glucose 147 H Sodium Potassium Chloride Carbon Dioxide BUN Creatinine Glucose POC Glucose 126 H Lactic Acid Calcium Phosphorus AST Total Creatine Kinase Troponin T HDL Cholesterol Arterial Blood Glucose 147 H Arterial Blood Ionized Calcium Urine WBC (Auto) Urine Creatinine 09/25/20 09/25/20 09/25/20 07:50 11:56 14:50 WBC RBC Hgb Hct MCV RDW Plt Count Lymph % (Auto) [place] % (Auto) Lymph # (Auto) [place] # (Auto) Seg Neutrophils % Seg Neuts % (Manual) Lymphocytes % (Manual) Seg Neutrophils # PT INR ABG pH POC ABG pCO2 POC ABG pO2 ABG pO2 ABG HCO3 ABG O2 Saturation ABG Base Excess ABG Oxyhemoglobin ABG Sodium ABG Potassium ABG Chloride ABG Glucose Sodium 160 H D 160 H Potassium Chloride 124.2 H Carbon Dioxide BUN 54 H Creatinine 2.8 H Glucose 124 H POC Glucose 109 H Lactic Acid Calcium 8.3 L Phosphorus AST Total Creatine Kinase Troponin T HDL Cholesterol Arterial Blood Glucose Arterial Blood Ionized Calcium Urine WBC (Auto) Urine Creatinine 09/25/20 09/25/20 09/25/20 18:02 19:45 23:02 WBC RBC Hgb Hct MCV RDW Plt Count Lymph % (Auto) [place] % (Auto) Lymph # (Auto) [place] # (Auto) Seg Neutrophils % Seg Neuts % (Manual) Lymphocytes % (Manual) Seg Neutrophils # PT INR ABG pH POC ABG pCO2 POC ABG pO2 ABG pO2 ABG HCO3 ABG O2 Saturation ABG Base Excess ABG Oxyhemoglobin ABG Sodium ABG Potassium ABG Chloride ABG Glucose Sodium 162 H* 160 H Potassium Chloride Carbon Dioxide BUN Creatinine Glucose POC Glucose 113 H Lactic Acid Calcium Phosphorus AST Total Creatine Kinase Troponin T HDL Cholesterol Arterial Blood Glucose Arterial Blood Ionized Calcium Urine WBC (Auto) Urine Creatinine 09/25/20 09/26/20 09/26/20 23:17 03:30 04:17 WBC 13.9 H RBC Hgb Hct MCV RDW 16.2 H Plt Count 133 L Lymph % (Auto) 7.4 L [place] % (Auto) 11.2 H Lymph # (Auto) 1.0 L [place] # (Auto) 1.6 H Seg Neutrophils % 81.0 H Seg Neuts % (Manual) Lymphocytes % (Manual) Seg Neutrophils # 11.3 H PT INR ABG pH 7.472 H POC ABG pCO2 31.1 L POC ABG pO2 56.5 L ABG pO2 ABG HCO3 ABG O2 Saturation ABG Base Excess ABG Oxyhemoglobin 91.3 L ABG Sodium 159.9 H ABG Potassium ABG Chloride 129.0 H ABG Glucose 135 H Sodium Potassium Chloride Carbon Dioxide BUN Creatinine Glucose POC Glucose 119 H Lactic Acid Calcium Phosphorus AST Total Creatine Kinase Troponin T HDL Cholesterol Arterial Blood Glucose 135 H Arterial Blood Ionized Calcium Urine WBC (Auto) Urine Creatinine 09/26/20 09/26/20 09/26/20 04:17 05:34 11:44 WBC RBC Hgb Hct MCV RDW Plt Count Lymph % (Auto) [place] % (Auto) Lymph # (Auto) [place] # (Auto) Seg Neutrophils % Seg Neuts % (Manual) Lymphocytes % (Manual) Seg Neutrophils # PT INR ABG pH POC ABG pCO2 POC ABG pO2 ABG pO2 ABG HCO3 ABG O2 Saturation ABG Base Excess ABG Oxyhemoglobin ABG Sodium ABG Potassium ABG Chloride ABG Glucose Sodium 162 H* Potassium Chloride 128.4 H Carbon Dioxide BUN 56 H Creatinine 2.5 H Glucose 128 H POC Glucose 135 H 141 H Lactic Acid Calcium Phosphorus 2.00 L D AST Total Creatine Kinase Troponin T HDL Cholesterol Arterial Blood Glucose Arterial Blood Ionized Calcium Urine WBC (Auto) Urine Creatinine 09/26/20 09/26/20 09/26/20 12:12 13:38 17:46 WBC RBC Hgb Hct MCV RDW Plt Count Lymph % (Auto) [place] % (Auto) Lymph # (Auto) [place] # (Auto) Seg Neutrophils % Seg Neuts % (Manual) Lymphocytes % (Manual) Seg Neutrophils # PT INR ABG pH POC ABG pCO2 POC ABG pO2 ABG pO2 ABG HCO3 ABG O2 Saturation ABG Base Excess ABG Oxyhemoglobin ABG Sodium ABG Potassium ABG Chloride ABG Glucose Sodium 160 H Potassium Chloride 127.2 H Carbon Dioxide BUN 60 H Creatinine 2.5 H Glucose 137 H POC Glucose 119 H Lactic Acid Calcium Phosphorus AST Total Creatine Kinase Troponin T HDL Cholesterol Arterial Blood Glucose Arterial Blood Ionized Calcium Urine WBC (Auto) 8.0 H Urine Creatinine 09/26/20 09/27/20 09/27/20 22:25 00:01 00:30 WBC RBC Hgb Hct MCV RDW Plt Count Lymph % (Auto) [place] % (Auto) Lymph # (Auto) [place] # (Auto) Seg Neutrophils % Seg Neuts % (Manual) Lymphocytes % (Manual) Seg Neutrophils # PT INR ABG pH POC ABG pCO2 POC ABG pO2 ABG pO2 ABG HCO3 ABG O2 Saturation ABG Base Excess ABG Oxyhemoglobin ABG Sodium ABG Potassium ABG Chloride ABG Glucose Sodium 161 H* 163 H* Potassium Chloride 129.3 H Carbon Dioxide BUN 61 H Creatinine 2.6 H Glucose 146 H POC Glucose 156 H Lactic Acid Calcium Phosphorus AST Total Creatine Kinase Troponin T HDL Cholesterol Arterial Blood Glucose Arterial Blood Ionized Calcium Urine WBC (Auto) Urine Creatinine 09/27/20 09/27/20 09/27/20 03:18 04:40 04:40 WBC 13.8 H RBC Hgb Hct MCV RDW 15.9 H Plt Count 123 L Lymph % (Auto) 7.8 L [place] % (Auto) 10.2 H Lymph # (Auto) 1.1 L [place] # (Auto) 1.4 H Seg Neutrophils % 81.5 H Seg Neuts % (Manual) Lymphocytes % (Manual) Seg Neutrophils # 11.2 H PT INR ABG pH POC ABG pCO2 POC ABG pO2 70.0 L ABG pO2 ABG HCO3 ABG O2 Saturation ABG Base Excess ABG Oxyhemoglobin ABG Sodium 160.6 H ABG Potassium ABG Chloride 130.0 H ABG Glucose 139 H Sodium 162 H* Potassium Chloride 128.9 H Carbon Dioxide BUN 63 H Creatinine 2.6 H Glucose 128 H POC Glucose Lactic Acid Calcium 8.3 L Phosphorus AST Total Creatine Kinase Troponin T HDL Cholesterol Arterial Blood Glucose 139 H Arterial Blood Ionized Calcium Urine WBC (Auto) Urine Creatinine 09/27/20 09/27/20 09/27/20 05:55 10:15 11:33 WBC RBC Hgb Hct MCV RDW Plt Count Lymph % (Auto) [place] % (Auto) Lymph # (Auto) [place] # (Auto) Seg Neutrophils % Seg Neuts % (Manual) Lymphocytes % (Manual) Seg Neutrophils # PT INR ABG pH POC ABG pCO2 POC ABG pO2 ABG pO2 ABG HCO3 ABG O2 Saturation ABG Base Excess ABG Oxyhemoglobin ABG Sodium ABG Potassium ABG Chloride ABG Glucose Sodium 164 H* Potassium 3.5 L Chloride 131.3 H Carbon Dioxide BUN 63 H Creatinine 2.7 H Glucose 147 H POC Glucose 116 H 131 H Lactic Acid Calcium Phosphorus AST Total Creatine Kinase Troponin T HDL Cholesterol Arterial Blood Glucose Arterial Blood Ionized Calcium Urine WBC (Auto) Urine Creatinine 09/27/20 09/28/20 09/28/20 17:21 00:10 03:01 WBC RBC Hgb Hct MCV RDW Plt Count Lymph % (Auto) [place] % (Auto) Lymph # (Auto) [place] # (Auto) Seg Neutrophils % Seg Neuts % (Manual) Lymphocytes % (Manual) Seg Neutrophils # PT INR ABG pH POC ABG pCO2 30.0 L POC ABG pO2 72.7 L ABG pO2 ABG HCO3 ABG O2 Saturation ABG Base Excess ABG Oxyhemoglobin ABG Sodium 159.8 H ABG Potassium ABG Chloride 131.0 H ABG Glucose 156 H Sodium Potassium Chloride Carbon Dioxide BUN Creatinine Glucose POC Glucose 151 H 125 H Lactic Acid Calcium Phosphorus AST Total Creatine Kinase Troponin T HDL Cholesterol Arterial Blood Glucose 156 H Arterial Blood Ionized Calcium Urine WBC (Auto) Urine Creatinine 09/28/20 09/28/20 09/28/20 04:29 04:29 05:16 WBC 16.7 H RBC Hgb Hct MCV RDW 16.4 H Plt Count 123 L Lymph % (Auto) 6.6 L [place] % (Auto) Lymph # (Auto) 1.1 L [place] # (Auto) 1.1 H Seg Neutrophils % 86.5 H Seg Neuts % (Manual) Lymphocytes % (Manual) Seg Neutrophils # 14.4 H PT INR ABG pH POC ABG pCO2 POC ABG pO2 ABG pO2 ABG HCO3 ABG O2 Saturation ABG Base Excess ABG Oxyhemoglobin ABG Sodium ABG Potassium ABG Chloride ABG Glucose Sodium 162 H* Potassium Chloride 128.7 H Carbon Dioxide 21 L BUN 73 H Creatinine 2.8 H Glucose 166 H POC Glucose 135 H Lactic Acid Calcium Phosphorus AST Total Creatine Kinase Troponin T HDL Cholesterol Arterial Blood Glucose Arterial Blood Ionized Calcium Urine WBC (Auto) Urine Creatinine 09/28/20 09/28/20 09/28/20 12:01 12:51 17:43 WBC RBC Hgb Hct MCV RDW Plt Count Lymph % (Auto) [place] % (Auto) Lymph # (Auto) [place] # (Auto) Seg Neutrophils % Seg Neuts % (Manual) Lymphocytes % (Manual) Seg Neutrophils # PT INR ABG pH POC ABG pCO2 POC ABG pO2 ABG pO2 ABG HCO3 ABG O2 Saturation ABG Base Excess ABG Oxyhemoglobin ABG Sodium ABG Potassium ABG Chloride ABG Glucose Sodium 161 H* Potassium Chloride 129.8 H Carbon Dioxide 20 L BUN 80 H Creatinine 2.9 H Glucose 139 H POC Glucose 115 H 119 H Lactic Acid Calcium 8.3 L Phosphorus AST Total Creatine Kinase Troponin T HDL Cholesterol Arterial Blood Glucose Arterial Blood Ionized Calcium Urine WBC (Auto) Urine Creatinine Chest x-ray: report reviewed, image reviewed (basically clear lungs)
[2020-09-28] MEDS ORDERED: DEXTROSE 5% IN WATER 1,000 ML IV SCH (22:00)
[2020-09-29] MEDS: METOPROLOL TARTRATE 50 MG TAB PO SCH ×4 (00:50→18:04)
[2020-09-29 01:26] LABS: Calcium 8.9 mg/dL (8.4-10.2)
[2020-09-29] MEDS: hydrALAZINE 20 MG/1 ML INJ IV SCH ×6 (02:20→22:59)
[2020-09-29] MEDS: ACETAMINOPHEN 325 MG/10.15 ML ORAL LIQD UNIT DOSE FEEDTUBE PRN (04:00)
--- NOTE | 2020-09-29 07:47 | Consultation ---
History of Present Illness Consult date: 09/29/20 Reason for Consult: post anoxic brain injury on 09/21/20 History of present illness: History Interval history: 50-year-old -[place] male brought to the emergency room today by EMS in cardiac arrest. Patient was said to have collapsed in the bathroom after grabbing his chest about 45 minutes prior to arrival in the emergency room. He is known to have history of hypertension. Patient unable to give any history as he is currently intubated and sedated. Upon arrival in the emergency room patient was found to be hypotensive and was subsequently started on pressors with significant improvement in his blood pressure. Work-up in the emergency room reveals a lactic acidosis of 8.7, initial troponin was within normal limits at 0.023 however subsequent troponin level was elevated at 0.865. No obvious ischemic changes on EKG. UDS was positive for marijuana. Urinalysis was significant for UTI. BUN and creatinine was elevated at 26 and 2.1. Patient currently intubated and admitted into the intensive care unit status post cardiac arrest, UTI, JAMEY, hypotension and lactic acidosis. Neurology Consulted due to lack of improvment in status he is off sedation with leukocytosis#16.6K Hypernatremia#167 ECHo EF#10-15% MRI brain from 09/25 is remarkable for brain edema with finding is consistent with anoxic brain injury Past History Past Medical History: heart failure, hypertension Past Surgical History: Other (Unknown) Social history: other (Unknown) Family history: other (Unknown) Past History Past Medical History: heart failure, hypertension Past Surgical History: Other (Unknown) Social history: other (Unknown) Family history: other (Unknown) Medications and Allergies Allergies Allergy/AdvReac Type Severity Reaction Status Date / Time No Known Allergies Allergy Unverified 09/20/20 23:08 Home Medications Medication Instructions Recorded Confirmed Last Taken Type Furosemide [Lasix] 40 mg PO QDAY 09/21/20 09/21/20 Unknown History Simvastatin 20 mg PO QDAY 09/21/20 09/21/20 Unknown History amLODIPine [Norvasc] 5 mg PO DAILY 09/21/20 09/21/20 Unknown History carvediloL [Coreg] 25 mg PO BID 09/21/20 09/21/20 Unknown History lisinopriL [Zestril TAB] 40 mg PO QDAY 09/21/20 09/21/20 Unknown History Active Meds: Active Medications Acetaminophen (Acetaminophen 325 Mg/10.15 Ml Oral Liqd Unit Dose) 650 mg FEEDTUBE Q6H PRN PRN Reason: Pain, Mild (1-3) Last Admin: 09/29/20 04:00 Dose: 650 mg Documented by: Lipase/Protease/Amylase (Lipase 10,500/Protease 25,000/Amylase 43,750 (Units) Dr Cap) 1 each FEEDTUBE PRN PRN PRN Reason: For Clogged Feeding Tube Aspirin (Aspirin 325 Mg Tab) 325 mg PO QDAY [facility] Last Admin: 09/28/20 09:37 Dose: 325 mg Documented by: Atorvastatin Calcium (Atorvastatin 40 Mg Tab) 40 mg PO QHS PATSY Last Admin: 09/28/20 21:52 Dose: 40 mg Documented by: Famotidine (Famotidine 20 Mg Tab) 20 mg PO DAILY [facility] Last Admin: 09/28/20 09:37 Dose: 20 mg Documented by: Heparin Sodium (Porcine) (Heparin 5,000 Unit/1 Ml Vial) 5,000 unit SUB-Q Q12HR PATSY Last Admin: 09/28/20 21:52 Dose: 5,000 unit Documented by: Hydralazine HCl (Hydralazine 20 Mg/1 Ml Inj) 5 mg IV Q4HR [facility] Last Admin: 09/29/20 06:57 Dose: Not Given Documented by: Hydrophilic Ointment (Lip Therapy Vaseline) 1 applic TP Q2HR PRN PRN Reason: Dry Lips Norepinephrine (Levophed Drip 4 Mg/Ns 250 Ml) 4 mg in 250 mls @ 7.5 mls/hr IV TITR PATSY; Protocol Fentanyl Citrate (Fentanyl Drip Premix) 2,000 mcg in 100 mls @ 5.105 mls/hr IV TITR PATSY; Protocol Last Titration: 09/25/20 18:17 Dose: 0 mcg/kg/hr, 0 mls/hr Documented by: Dextrose (D5w) 1,000 mls @ 100 mls/hr IV DIRECT PATSY Linezolid (Linezolid 600 Mg Tab) 600 mg PO Q12HR PATSY; Protocol Stop: 10/03/20 22:01 Last Admin: 09/28/20 21:55 Dose: 600 mg Documented by: Metoprolol Tartrate (Metoprolol Tartrate 50 Mg Tab) 50 mg PO Q6HR PATSY Last Admin: 09/29/20 06:58 Dose: Not Given Documented by: Multi-Ingred Cream/Lotion/Oil/Oint (Mineral Oil/Petrolatum, White Ophth Oint 3.5 Gm) 1 applic OU Q4HR PRN PRN Reason: Dry Eye(s) Ondansetron HCl (Ondansetron 4 Mg/2 Ml Inj) 4 mg IV Q8H PRN PRN Reason: Nausea And Vomiting Simple Syrup (Simple Syrup 15 Ml) 15 ml FEEDTUBE PRN PRN PRN Reason: Hypoglycemia Simple Syrup (Simple Syrup 15 Ml) 30 ml FEEDTUBE PRN PRN PRN Reason: Hypoglycemia Sodium Bicarbonate (Sodium Bicarbonate 325 Mg Tab) 325 mg FEEDTUBE PRN PRN PRN Reason: For Clogged Feeding Tube Sodium Chloride (Sodium Chloride 0.9% 10 Ml Flush Syringe) 10 ml IV BID [facility] Last Admin: 09/28/20 21:53 Dose: 10 ml Documented by: Sodium Chloride (Sodium Chloride 0.9% 10 Ml Flush Syringe) 10 ml IV PRN PRN PRN Reason: LINE FLUSH Last Admin: 09/24/20 18:21 Dose: 10 ml Documented by: Physical Examination - Vital Signs Vital Signs: Vital Signs Pulse Resp BP Pulse Ox 111 H 31 H 118/97 100 09/20/20 22:50 09/20/20 22:50 09/20/20 22:50 09/20/20 22:50 - Constitutional General appearance: comfortable, other (intubated off sedation unresponsive to pain stimuli) - EENT EENT: Present: mucous membranes moist, other (pupil constricted poorly reactive, EOM suggish , no corneal reflexes ,no gag is noted) - Respiratory Respiratory: Present: lungs clear, rhonchi - Cardiovascular Cardiovascular: Present: regular rate, normal S1 Extremities: Present: no peripheral edema bilatateraly - Gastrointestinal Gastrointestinal: Present: normoactive bowel sounds - Integumentary Integumentary: Present: normal - Neurologic Detailed motor examination: other (no movment to pain stimuli ) Results - Laboratory Findings CBC and BMP: 09/29/20 07:24 09/29/20 07:24 Abnormal Lab Findings: Abnormal Labs 09/20/20 09/20/20 09/20/20 23:02 23:02 23:02 WBC RBC Hgb Hct MCV 96 H RDW 15.8 H Plt Count Lymph % (Auto) Mcintosh % (Auto) Lymph # (Auto) Mcintosh # (Auto) Seg Neutrophils % Seg Neuts % (Manual) 34.0 L Lymphocytes % (Manual) 57.0 H Seg Neutrophils # PT INR 1.14 H ABG pH POC ABG pCO2 POC ABG pO2 ABG pO2 ABG HCO3 ABG O2 Saturation ABG Base Excess ABG Oxyhemoglobin ABG Sodium ABG Potassium ABG Chloride ABG Glucose Sodium Potassium Chloride Carbon Dioxide 21 L BUN 26 H Creatinine 2.1 H Glucose 227 H POC Glucose Lactic Acid Calcium 10.3 H Phosphorus AST 59 H Total Creatine Kinase Troponin T HDL Cholesterol Arterial Blood Glucose Arterial Blood Ionized Calcium Urine WBC (Auto) Urine Creatinine 09/20/20 09/20/20 09/21/20 23:15 23:35 01:20 WBC RBC Hgb Hct MCV RDW Plt Count Lymph % (Auto) Mcintosh % (Auto) Lymph # (Auto) Mcintosh # (Auto) Seg Neutrophils % Seg Neuts % (Manual) Lymphocytes % (Manual) Seg Neutrophils # PT INR ABG pH POC ABG pCO2 POC ABG pO2 ABG pO2 ABG HCO3 ABG O2 Saturation ABG Base Excess ABG Oxyhemoglobin ABG Sodium ABG Potassium ABG Chloride ABG Glucose Sodium Potassium Chloride Carbon Dioxide BUN Creatinine Glucose POC Glucose 197 H Lactic Acid 8.70 H* Calcium Phosphorus AST Total Creatine Kinase Troponin T HDL Cholesterol Arterial Blood Glucose Arterial Blood Ionized Calcium Urine WBC (Auto) 47.0 H Urine Creatinine 09/21/20 09/21/20 09/21/20 02:01 02:15 04:25 WBC RBC Hgb Hct MCV RDW Plt Count Lymph % (Auto) Mcintosh % (Auto) Lymph # (Auto) Mcintosh # (Auto) Seg Neutrophils % Seg Neuts % (Manual) Lymphocytes % (Manual) Seg Neutrophils # PT INR ABG pH 7.258 L POC ABG pCO2 POC ABG pO2 ABG pO2 244.1 H ABG HCO3 17.7 L ABG O2 Saturation 99.4 H ABG Base Excess -8.8 L ABG Oxyhemoglobin ABG Sodium ABG Potassium ABG Chloride ABG Glucose Sodium Potassium Chloride Carbon Dioxide BUN Creatinine Glucose POC Glucose 65 L Lactic Acid Calcium Phosphorus AST Total Creatine Kinase Troponin T 0.865 H* D HDL Cholesterol 60 H Arterial Blood Glucose Arterial Blood Ionized Calcium Urine WBC (Auto) Urine Creatinine 09/21/20 09/21/20 09/21/20 04:34 04:34 07:03 WBC RBC Hgb 16.9 H D Hct 51.3 H D MCV RDW Plt Count Lymph % (Auto) Mcintosh % (Auto) Lymph # (Auto) Mcintosh # (Auto) Seg Neutrophils % Seg Neuts % (Manual) Lymphocytes % (Manual) Seg Neutrophils # PT INR ABG pH POC ABG pCO2 POC ABG pO2 ABG pO2 ABG HCO3 ABG O2 Saturation ABG Base Excess ABG Oxyhemoglobin ABG Sodium ABG Potassium ABG Chloride ABG Glucose Sodium Potassium Chloride Carbon Dioxide BUN Creatinine Glucose POC Glucose Lactic Acid 3.00 H* Calcium Phosphorus AST Total Creatine Kinase Troponin T 1.880 H* D HDL Cholesterol Arterial Blood Glucose Arterial Blood Ionized Calcium Urine WBC (Auto) Urine Creatinine 09/21/20 09/21/20 09/21/20 07:03 07:32 07:53 WBC 19.2 H RBC 5.31 H Hgb 16.0 H Hct 49.0 H MCV RDW 15.7 H Plt Count Lymph % (Auto) Mcintosh % (Auto) Lymph # (Auto) Mcintosh # (Auto) Seg Neutrophils % Seg Neuts % (Manual) Lymphocytes % (Manual) Seg Neutrophils # PT 16.3 H INR 1.31 H ABG pH POC ABG pCO2 POC ABG pO2 ABG pO2 ABG HCO3 ABG O2 Saturation ABG Base Excess ABG Oxyhemoglobin ABG Sodium ABG Potassium ABG Chloride ABG Glucose Sodium Potassium Chloride Carbon Dioxide BUN Creatinine Glucose POC Glucose 60 L Lactic Acid Calcium Phosphorus AST Total Creatine Kinase Troponin T HDL Cholesterol Arterial Blood Glucose Arterial Blood Ionized Calcium Urine WBC (Auto) Urine Creatinine 09/21/20 09/21/20 09/21/20 07:53 09:30 10:08 WBC RBC Hgb Hct MCV RDW Plt Count Lymph % (Auto) Mcintosh % (Auto) Lymph # (Auto) Mcintosh # (Auto) Seg Neutrophils % Seg Neuts % (Manual) Lymphocytes % (Manual) Seg Neutrophils # PT 15.4 H INR 1.24 H ABG pH POC ABG pCO2 POC ABG pO2 ABG pO2 ABG HCO3 ABG O2 Saturation ABG Base Excess ABG Oxyhemoglobin ABG Sodium ABG Potassium ABG Chloride ABG Glucose Sodium 146 H Potassium 3.5 L Chloride 109.6 H Carbon Dioxide 20 L BUN 37 H Creatinine 2.8 H Glucose 127 H POC Glucose Lactic Acid 3.00 H* Calcium Phosphorus AST Total Creatine Kinase Troponin T HDL Cholesterol Arterial Blood Glucose Arterial Blood Ionized Calcium Urine WBC (Auto) Urine Creatinine 09/21/20 09/21/20 09/21/20 10:34 11:22 11:44 WBC RBC Hgb Hct MCV RDW Plt Count Lymph % (Auto) Mcintosh % (Auto) Lymph # (Auto) Mcintosh # (Auto) Seg Neutrophils % Seg Neuts % (Manual) Lymphocytes % (Manual) Seg Neutrophils # PT INR ABG pH POC ABG pCO2 25.9 L POC ABG pO2 196.9 H ABG pO2 ABG HCO3 ABG O2 Saturation ABG Base Excess ABG Oxyhemoglobin 98.4 H ABG Sodium ABG Potassium 3.3 L ABG Chloride 113.0 H ABG Glucose 130 H Sodium Potassium Chloride Carbon Dioxide BUN Creatinine Glucose POC Glucose 126 H 127 H Lactic Acid Calcium Phosphorus AST Total Creatine Kinase Troponin T HDL Cholesterol Arterial Blood Glucose 130 H Arterial Blood Ionized Calcium Urine WBC (Auto) Urine Creatinine 09/21/20 09/21/20 09/21/20 14:27 14:27 15:09 WBC RBC Hgb Hct MCV RDW Plt Count Lymph % (Auto) Mcintosh % (Auto) Lymph # (Auto) Mcintosh # (Auto) Seg Neutrophils % Seg Neuts % (Manual) Lymphocytes % (Manual) Seg Neutrophils # PT INR ABG pH POC ABG pCO2 POC ABG pO2 ABG pO2 ABG HCO3 ABG O2 Saturation ABG Base Excess ABG Oxyhemoglobin ABG Sodium ABG Potassium ABG Chloride ABG Glucose Sodium Potassium Chloride Carbon Dioxide BUN Creatinine Glucose POC Glucose 135 H Lactic Acid Calcium Phosphorus AST Total Creatine Kinase Troponin T HDL Cholesterol Arterial Blood Glucose Arterial Blood Ionized Calcium Urine WBC (Auto) 12.0 H Urine Creatinine 60.4 H 09/21/20 09/21/20 09/21/20 15:54 15:54 16:13 WBC RBC Hgb Hct MCV RDW Plt Count Lymph % (Auto) Mcintosh % (Auto) Lymph # (Auto) Mcintosh # (Auto) Seg Neutrophils % Seg Neuts % (Manual) Lymphocytes % (Manual) Seg Neutrophils # PT INR ABG pH POC ABG pCO2 POC ABG pO2 ABG pO2 ABG HCO3 ABG O2 Saturation ABG Base Excess ABG Oxyhemoglobin ABG Sodium ABG Potassium ABG Chloride ABG Glucose Sodium Potassium Chloride Carbon Dioxide BUN Creatinine Glucose POC Glucose 131 H Lactic Acid 3.60 H* Calcium Phosphorus AST Total Creatine Kinase 3606 H Troponin T HDL Cholesterol Arterial Blood Glucose Arterial Blood Ionized Calcium Urine WBC (Auto) Urine Creatinine 09/21/20 09/21/20 09/21/20 18:02 19:48 20:57 WBC RBC Hgb Hct MCV RDW Plt Count Lymph % (Auto) Mcintosh % (Auto) Lymph # (Auto) Mcintosh # (Auto) Seg Neutrophils % Seg Neuts % (Manual) Lymphocytes % (Manual) Seg Neutrophils # PT INR ABG pH POC ABG pCO2 POC ABG pO2 ABG pO2 ABG HCO3 ABG O2 Saturation ABG Base Excess ABG Oxyhemoglobin ABG Sodium ABG Potassium ABG Chloride ABG Glucose Sodium Potassium Chloride Carbon Dioxide BUN Creatinine Glucose POC Glucose 139 H 184 H 173 H Lactic Acid Calcium Phosphorus AST Total Creatine Kinase Troponin T HDL Cholesterol Arterial Blood Glucose Arterial Blood Ionized Calcium Urine WBC (Auto) Urine Creatinine 09/21/20 09/21/20 09/21/20 22:02 22:27 23:54 WBC RBC Hgb Hct MCV RDW Plt Count Lymph % (Auto) Mcintosh % (Auto) Lymph # (Auto) Mcintosh # (Auto) Seg Neutrophils % Seg Neuts % (Manual) Lymphocytes % (Manual) Seg Neutrophils # PT INR ABG pH POC ABG pCO2 POC ABG pO2 ABG pO2 ABG HCO3 ABG O2 Saturation ABG Base Excess ABG Oxyhemoglobin ABG Sodium ABG Potassium ABG Chloride ABG Glucose Sodium Potassium Chloride Carbon Dioxide BUN Creatinine Glucose POC Glucose 147 H 142 H 143 H Lactic Acid Calcium Phosphorus AST Total Creatine Kinase Troponin T HDL Cholesterol Arterial Blood Glucose Arterial Blood Ionized Calcium Urine WBC (Auto) Urine Creatinine 09/22/20 09/22/20 09/22/20 00:49 02:01 02:14 WBC RBC Hgb Hct MCV RDW Plt Count Lymph % (Auto) Mcintosh % (Auto) Lymph # (Auto) Mcintosh # (Auto) Seg Neutrophils % Seg Neuts % (Manual) Lymphocytes % (Manual) Seg Neutrophils # PT INR ABG pH POC ABG pCO2 POC ABG pO2 ABG pO2 ABG HCO3 ABG O2 Saturation ABG Base Excess ABG Oxyhemoglobin ABG Sodium ABG Potassium ABG Chloride ABG Glucose Sodium Potassium Chloride Carbon Dioxide BUN Creatinine Glucose POC Glucose 154 H 154 H 149 H Lactic Acid Calcium Phosphorus AST Total Creatine Kinase Troponin T HDL Cholesterol Arterial Blood Glucose Arterial Blood Ionized Calcium Urine WBC (Auto) Urine Creatinine 09/22/20 09/22/20 09/22/20 02:57 03:21 03:58 WBC RBC Hgb Hct MCV RDW Plt Count Lymph % (Auto) Mcintosh % (Auto) Lymph # (Auto) Mcintosh # (Auto) Seg Neutrophils % Seg Neuts % (Manual) Lymphocytes % (Manual) Seg Neutrophils # PT INR ABG pH 7.496 H POC ABG pCO2 25.0 L POC ABG pO2 73.8 L ABG pO2 ABG HCO3 ABG O2 Saturation ABG Base Excess ABG Oxyhemoglobin ABG Sodium ABG Potassium ABG Chloride 115.0 H ABG Glucose 154 H Sodium Potassium Chloride Carbon Dioxide BUN Creatinine Glucose POC Glucose 166 H 158 H Lactic Acid Calcium Phosphorus AST Total Creatine Kinase Troponin T HDL Cholesterol Arterial Blood Glucose 154 H Arterial Blood Ionized Calcium 4.5 L Urine WBC (Auto) Urine Creatinine 09/22/20 09/22/20 09/22/20 05:06 05:56 06:50 WBC RBC Hgb Hct MCV RDW Plt Count Lymph % (Auto) Mcintosh % (Auto) Lymph # (Auto) Mcintosh # (Auto) Seg Neutrophils % Seg Neuts % (Manual) Lymphocytes % (Manual) Seg Neutrophils # PT INR ABG pH POC ABG pCO2 POC ABG pO2 ABG pO2 ABG HCO3 ABG O2 Saturation ABG Base Excess ABG Oxyhemoglobin ABG Sodium ABG Potassium ABG Chloride ABG Glucose Sodium Potassium Chloride Carbon Dioxide BUN Creatinine Glucose POC Glucose 147 H 145 H 137 H Lactic Acid Calcium Phosphorus AST Total Creatine Kinase Troponin T HDL Cholesterol Arterial Blood Glucose Arterial Blood Ionized Calcium Urine WBC (Auto) Urine Creatinine 09/22/20 09/22/20 09/22/20 08:02 08:26 08:26 WBC 15.2 H RBC Hgb Hct MCV RDW 16.0 H Plt Count Lymph % (Auto) 7.6 L Mcintosh % (Auto) Lymph # (Auto) Mcintosh # (Auto) 1.0 H Seg Neutrophils % 86.0 H Seg Neuts % (Manual) Lymphocytes % (Manual) Seg Neutrophils # 13.0 H PT 15.5 H INR 1.25 H ABG pH POC ABG pCO2 POC ABG pO2 ABG pO2 ABG HCO3 ABG O2 Saturation ABG Base Excess ABG Oxyhemoglobin ABG Sodium ABG Potassium ABG Chloride ABG Glucose Sodium Potassium Chloride Carbon Dioxide BUN Creatinine Glucose POC Glucose 149 H Lactic Acid Calcium Phosphorus AST Total Creatine Kinase Troponin T HDL Cholesterol Arterial Blood Glucose Arterial Blood Ionized Calcium Urine WBC (Auto) Urine Creatinine 09/22/20 09/22/20 09/22/20 08:26 12:04 15:55 WBC RBC Hgb Hct MCV RDW Plt Count Lymph % (Auto) Mcintosh % (Auto) Lymph # (Auto) Mcintosh # (Auto) Seg Neutrophils % Seg Neuts % (Manual) Lymphocytes % (Manual) Seg Neutrophils # PT INR ABG pH POC ABG pCO2 POC ABG pO2 ABG pO2 ABG HCO3 ABG O2 Saturation ABG Base Excess ABG Oxyhemoglobin ABG Sodium ABG Potassium ABG Chloride ABG Glucose Sodium 146 H Potassium 3.5 L Chloride 114.0 H Carbon Dioxide 18 L BUN 46 H Creatinine 3.7 H Glucose 134 H POC Glucose 138 H 123 H Lactic Acid Calcium 7.7 L Phosphorus AST Total Creatine Kinase Troponin T HDL Cholesterol Arterial Blood Glucose Arterial Blood Ionized Calcium Urine WBC (Auto) Urine Creatinine 09/22/20 09/22/20 09/23/20 21:57 23:41 03:30 WBC 14.2 H RBC Hgb Hct MCV RDW 16.5 H Plt Count 126 L Lymph % (Auto) 8.2 L Mcintosh % (Auto) 7.8 H Lymph # (Auto) Mcintosh # (Auto) 1.1 H Seg Neutrophils % 83.8 H Seg Neuts % (Manual) Lymphocytes % (Manual) Seg Neutrophils # 11.9 H PT INR ABG pH POC ABG pCO2 POC ABG pO2 ABG pO2 ABG HCO3 ABG O2 Saturation ABG Base Excess ABG Oxyhemoglobin ABG Sodium ABG Potassium ABG Chloride ABG Glucose Sodium Potassium Chloride Carbon Dioxide BUN Creatinine Glucose POC Glucose 124 H 130 H Lactic Acid Calcium Phosphorus AST Total Creatine Kinase Troponin T HDL Cholesterol Arterial Blood Glucose Arterial Blood Ionized Calcium Urine WBC (Auto) Urine Creatinine 09/23/20 09/23/20 09/23/20 03:30 03:45 12:33 WBC RBC Hgb Hct MCV RDW Plt Count Lymph % (Auto) Mcintosh % (Auto) Lymph # (Auto) Mcintosh # (Auto) Seg Neutrophils % Seg Neuts % (Manual) Lymphocytes % (Manual) Seg Neutrophils # PT INR ABG pH POC ABG pCO2 POC ABG pO2 ABG pO2 ABG HCO3 ABG O2 Saturation ABG Base Excess ABG Oxyhemoglobin ABG Sodium ABG Potassium ABG Chloride ABG Glucose Sodium Potassium Chloride 110.4 H Carbon Dioxide 19 L BUN 56 H Creatinine 4.7 H Glucose 148 H POC Glucose 132 H 139 H Lactic Acid Calcium 7.4 L Phosphorus 5.80 H D AST Total Creatine Kinase Troponin T HDL Cholesterol Arterial Blood Glucose Arterial Blood Ionized Calcium Urine WBC (Auto) Urine Creatinine 09/23/20 09/23/20 09/24/20 17:54 23:18 02:57 WBC RBC Hgb Hct MCV RDW Plt Count Lymph % (Auto) Mcintosh % (Auto) Lymph # (Auto) Mcintosh # (Auto) Seg Neutrophils % Seg Neuts % (Manual) Lymphocytes % (Manual) Seg Neutrophils # PT INR ABG pH POC ABG pCO2 30.0 L POC ABG pO2 75.1 L ABG pO2 ABG HCO3 ABG O2 Saturation ABG Base Excess ABG Oxyhemoglobin ABG Sodium 149.5 H ABG Potassium ABG Chloride 119.0 H ABG Glucose 144 H Sodium Potassium Chloride Carbon Dioxide BUN Creatinine Glucose POC Glucose 115 H 139 H Lactic Acid Calcium Phosphorus AST Total Creatine Kinase Troponin T HDL Cholesterol Arterial Blood Glucose 144 H Arterial Blood Ionized Calcium Urine WBC (Auto) Urine Creatinine 09/24/20 09/24/20 09/24/20 04:20 04:30 05:10 WBC 14.3 H RBC Hgb Hct MCV RDW 16.6 H Plt Count 135 L Lymph % (Auto) 5.9 L Mcintosh % (Auto) Lymph # (Auto) 0.8 L Mcintosh # (Auto) 0.9 H Seg Neutrophils % 87.5 H Seg Neuts % (Manual) Lymphocytes % (Manual) Seg Neutrophils # 12.5 H PT INR ABG pH POC ABG pCO2 POC ABG pO2 ABG pO2 ABG HCO3 ABG O2 Saturation ABG Base Excess ABG Oxyhemoglobin ABG Sodium ABG Potassium ABG Chloride ABG Glucose Sodium 147 H Potassium Chloride 114.4 H Carbon Dioxide 19 L BUN 50 H Creatinine 3.2 H Glucose 142 H POC Glucose 137 H Lactic Acid Calcium 8.3 L Phosphorus AST Total Creatine Kinase Troponin T HDL Cholesterol Arterial Blood Glucose Arterial Blood Ionized Calcium Urine WBC (Auto) Urine Creatinine 09/24/20 09/24/20 09/24/20 12:03 17:39 23:15 WBC RBC Hgb Hct MCV RDW Plt Count Lymph % (Auto) Mcintosh % (Auto) Lymph # (Auto) Mcintosh # (Auto) Seg Neutrophils % Seg Neuts % (Manual) Lymphocytes % (Manual) Seg Neutrophils # PT INR ABG pH POC ABG pCO2 POC ABG pO2 ABG pO2 ABG HCO3 ABG O2 Saturation ABG Base Excess ABG Oxyhemoglobin ABG Sodium ABG Potassium ABG Chloride ABG Glucose Sodium Potassium Chloride Carbon Dioxide BUN Creatinine Glucose POC Glucose 120 H 155 H 109 H Lactic Acid Calcium Phosphorus AST Total Creatine Kinase Troponin T HDL Cholesterol Arterial Blood Glucose Arterial Blood Ionized Calcium Urine WBC (Auto) Urine Creatinine 09/25/20 09/25/20 09/25/20 03:02 05:16 07:50 WBC 14.0 H RBC Hgb Hct MCV RDW 16.5 H Plt Count Lymph % (Auto) 6.7 L Mcintosh % (Auto) 9.1 H Lymph # (Auto) 0.9 L Mcintosh # (Auto) 1.3 H Seg Neutrophils % 84.1 H Seg Neuts % (Manual) Lymphocytes % (Manual) Seg Neutrophils # 11.8 H PT INR ABG pH POC ABG pCO2 POC ABG pO2 67.4 L ABG pO2 ABG HCO3 ABG O2 Saturation ABG Base Excess ABG Oxyhemoglobin 92.3 L ABG Sodium 157.3 H ABG Potassium ABG Chloride 125.0 H ABG Glucose 147 H Sodium Potassium Chloride Carbon Dioxide BUN Creatinine Glucose POC Glucose 126 H Lactic Acid Calcium Phosphorus AST Total Creatine Kinase Troponin T HDL Cholesterol Arterial Blood Glucose 147 H Arterial Blood Ionized Calcium Urine WBC (Auto) Urine Creatinine 09/25/20 09/25/20 09/25/20 07:50 11:56 14:50 WBC RBC Hgb Hct MCV RDW Plt Count Lymph % (Auto) Mcintosh % (Auto) Lymph # (Auto) Mcintosh # (Auto) Seg Neutrophils % Seg Neuts % (Manual) Lymphocytes % (Manual) Seg Neutrophils # PT INR ABG pH POC ABG pCO2 POC ABG pO2 ABG pO2 ABG HCO3 ABG O2 Saturation ABG Base Excess ABG Oxyhemoglobin ABG Sodium ABG Potassium ABG Chloride ABG Glucose Sodium 160 H D 160 H Potassium Chloride 124.2 H Carbon Dioxide BUN 54 H Creatinine 2.8 H Glucose 124 H POC Glucose 109 H Lactic Acid Calcium 8.3 L Phosphorus AST Total Creatine Kinase Troponin T HDL Cholesterol Arterial Blood Glucose Arterial Blood Ionized Calcium Urine WBC (Auto) Urine Creatinine 09/25/20 09/25/20 09/25/20 18:02 19:45 23:02 WBC RBC Hgb Hct MCV RDW Plt Count Lymph % (Auto) Mcintosh % (Auto) Lymph # (Auto) Mcintosh # (Auto) Seg Neutrophils % Seg Neuts % (Manual) Lymphocytes % (Manual) Seg Neutrophils # PT INR ABG pH POC ABG pCO2 POC ABG pO2 ABG pO2 ABG HCO3 ABG O2 Saturation ABG Base Excess ABG Oxyhemoglobin ABG Sodium ABG Potassium ABG Chloride ABG Glucose Sodium 162 H* 160 H Potassium Chloride Carbon Dioxide BUN Creatinine Glucose POC Glucose 113 H Lactic Acid Calcium Phosphorus AST Total Creatine Kinase Troponin T HDL Cholesterol Arterial Blood Glucose Arterial Blood Ionized Calcium Urine WBC (Auto) Urine Creatinine 09/25/20 09/26/20 09/26/20 23:17 03:30 04:17 WBC 13.9 H RBC Hgb Hct MCV RDW 16.2 H Plt Count 133 L Lymph % (Auto) 7.4 L Mcintosh % (Auto) 11.2 H Lymph # (Auto) 1.0 L Mcintosh # (Auto) 1.6 H Seg Neutrophils % 81.0 H Seg Neuts % (Manual) Lymphocytes % (Manual) Seg Neutrophils # 11.3 H PT INR ABG pH 7.472 H POC ABG pCO2 31.1 L POC ABG pO2 56.5 L ABG pO2 ABG HCO3 ABG O2 Saturation ABG Base Excess ABG Oxyhemoglobin 91.3 L ABG Sodium 159.9 H ABG Potassium ABG Chloride 129.0 H ABG Glucose 135 H Sodium Potassium Chloride Carbon Dioxide BUN Creatinine Glucose POC Glucose 119 H Lactic Acid Calcium Phosphorus AST Total Creatine Kinase Troponin T HDL Cholesterol Arterial Blood Glucose 135 H Arterial Blood Ionized Calcium Urine WBC (Auto) Urine Creatinine 09/26/20 09/26/20 09/26/20 04:17 05:34 11:44 WBC RBC Hgb Hct MCV RDW Plt Count Lymph % (Auto) Mcintosh % (Auto) Lymph # (Auto) Mcintosh # (Auto) Seg Neutrophils % Seg Neuts % (Manual) Lymphocytes % (Manual) Seg Neutrophils # PT INR ABG pH POC ABG pCO2 POC ABG pO2 ABG pO2 ABG HCO3 ABG O2 Saturation ABG Base Excess ABG Oxyhemoglobin ABG Sodium ABG Potassium ABG Chloride ABG Glucose Sodium 162 H* Potassium Chloride 128.4 H Carbon Dioxide BUN 56 H Creatinine 2.5 H Glucose 128 H POC Glucose 135 H 141 H Lactic Acid Calcium Phosphorus 2.00 L D AST Total Creatine Kinase Troponin T HDL Cholesterol Arterial Blood Glucose Arterial Blood Ionized Calcium Urine WBC (Auto) Urine Creatinine 09/26/20 09/26/20 09/26/20 12:12 13:38 17:46 WBC RBC Hgb Hct MCV RDW Plt Count Lymph % (Auto) Mcintosh % (Auto) Lymph # (Auto) Mcintosh # (Auto) Seg Neutrophils % Seg Neuts % (Manual) Lymphocytes % (Manual) Seg Neutrophils # PT INR ABG pH POC ABG pCO2 POC ABG pO2 ABG pO2 ABG HCO3 ABG O2 Saturation ABG Base Excess ABG Oxyhemoglobin ABG Sodium ABG Potassium ABG Chloride ABG Glucose Sodium 160 H Potassium Chloride 127.2 H Carbon Dioxide BUN 60 H Creatinine 2.5 H Glucose 137 H POC Glucose 119 H Lactic Acid Calcium Phosphorus AST Total Creatine Kinase Troponin T HDL Cholesterol Arterial Blood Glucose Arterial Blood Ionized Calcium Urine WBC (Auto) 8.0 H Urine Creatinine 09/26/20 09/27/20 09/27/20 22:25 00:01 00:30 WBC RBC Hgb Hct MCV RDW Plt Count Lymph % (Auto) Mcintosh % (Auto) Lymph # (Auto) Mcintosh # (Auto) Seg Neutrophils % Seg Neuts % (Manual) Lymphocytes % (Manual) Seg Neutrophils # PT INR ABG pH POC ABG pCO2 POC ABG pO2 ABG pO2 ABG HCO3 ABG O2 Saturation ABG Base Excess ABG Oxyhemoglobin ABG Sodium ABG Potassium ABG Chloride ABG Glucose Sodium 161 H* 163 H* Potassium Chloride 129.3 H Carbon Dioxide BUN 61 H Creatinine 2.6 H Glucose 146 H POC Glucose 156 H Lactic Acid Calcium Phosphorus AST Total Creatine Kinase Troponin T HDL Cholesterol Arterial Blood Glucose Arterial Blood Ionized Calcium Urine WBC (Auto) Urine Creatinine 09/27/20 09/27/20 09/27/20 03:18 04:40 04:40 WBC 13.8 H RBC Hgb Hct MCV RDW 15.9 H Plt Count 123 L Lymph % (Auto) 7.8 L Mcintosh % (Auto) 10.2 H Lymph # (Auto) 1.1 L Mcintosh # (Auto) 1.4 H Seg Neutrophils % 81.5 H Seg Neuts % (Manual) Lymphocytes % (Manual) Seg Neutrophils # 11.2 H PT INR ABG pH POC ABG pCO2 POC ABG pO2 70.0 L ABG pO2 ABG HCO3 ABG O2 Saturation ABG Base Excess ABG Oxyhemoglobin ABG Sodium 160.6 H ABG Potassium ABG Chloride 130.0 H ABG Glucose 139 H Sodium 162 H* Potassium Chloride 128.9 H Carbon Dioxide BUN 63 H Creatinine 2.6 H Glucose 128 H POC Glucose Lactic Acid Calcium 8.3 L Phosphorus AST Total Creatine Kinase Troponin T HDL Cholesterol Arterial Blood Glucose 139 H Arterial Blood Ionized Calcium Urine WBC (Auto) Urine Creatinine 09/27/20 09/27/20 09/27/20 05:55 10:15 11:33 WBC RBC Hgb Hct MCV RDW Plt Count Lymph % (Auto) Mcintosh % (Auto) Lymph # (Auto) Mcintosh # (Auto) Seg Neutrophils % Seg Neuts % (Manual) Lymphocytes % (Manual) Seg Neutrophils # PT INR ABG pH POC ABG pCO2 POC ABG pO2 ABG pO2 ABG HCO3 ABG O2 Saturation ABG Base Excess ABG Oxyhemoglobin ABG Sodium ABG Potassium ABG Chloride ABG Glucose Sodium 164 H* Potassium 3.5 L Chloride 131.3 H Carbon Dioxide BUN 63 H Creatinine 2.7 H Glucose 147 H POC Glucose 116 H 131 H Lactic Acid Calcium Phosphorus AST Total Creatine Kinase Troponin T HDL Cholesterol Arterial Blood Glucose Arterial Blood Ionized Calcium Urine WBC (Auto) Urine Creatinine 09/27/20 09/28/20 09/28/20 17:21 00:10 03:20 WBC RBC Hgb Hct MCV RDW Plt Count Lymph % (Auto) Mcintosh % (Auto) Lymph # (Auto) Mcintosh # (Auto) Seg Neutrophils % Seg Neuts % (Manual) Lymphocytes % (Manual) Seg Neutrophils # PT INR ABG pH POC ABG pCO2 30.0 L POC ABG pO2 72.7 L ABG pO2 ABG HCO3 ABG O2 Saturation ABG Base Excess ABG Oxyhemoglobin ABG Sodium 159.8 H ABG Potassium ABG Chloride 131.0 H ABG Glucose 156 H Sodium Potassium Chloride Carbon Dioxide BUN Creatinine Glucose POC Glucose 151 H 125 H Lactic Acid Calcium Phosphorus AST Total Creatine Kinase Troponin T HDL Cholesterol Arterial Blood Glucose 156 H Arterial Blood Ionized Calcium Urine WBC (Auto) Urine Creatinine 09/28/20 09/28/20 09/28/20 04:29 04:29 05:16 WBC 16.7 H RBC Hgb Hct MCV RDW 16.4 H Plt Count 123 L Lymph % (Auto) 6.6 L Mcintosh % (Auto) Lymph # (Auto) 1.1 L Mcintosh # (Auto) 1.1 H Seg Neutrophils % 86.5 H Seg Neuts % (Manual) Lymphocytes % (Manual) Seg Neutrophils # 14.4 H PT INR ABG pH POC ABG pCO2 POC ABG pO2 ABG pO2 ABG HCO3 ABG O2 Saturation ABG Base Excess ABG Oxyhemoglobin ABG Sodium ABG Potassium ABG Chloride ABG Glucose Sodium 162 H* Potassium Chloride 128.7 H Carbon Dioxide 21 L BUN 73 H Creatinine 2.8 H Glucose 166 H POC Glucose 135 H Lactic Acid Calcium Phosphorus AST Total Creatine Kinase Troponin T HDL Cholesterol Arterial Blood Glucose Arterial Blood Ionized Calcium Urine WBC (Auto) Urine Creatinine 09/28/20 09/28/20 09/28/20 12:01 12:51 17:43 WBC RBC Hgb Hct MCV RDW Plt Count Lymph % (Auto) Mcintosh % (Auto) Lymph # (Auto) Mcintosh # (Auto) Seg Neutrophils % Seg Neuts % (Manual) Lymphocytes % (Manual) Seg Neutrophils # PT INR ABG pH POC ABG pCO2 POC ABG pO2 ABG pO2 ABG HCO3 ABG O2 Saturation ABG Base Excess ABG Oxyhemoglobin ABG Sodium ABG Potassium ABG Chloride ABG Glucose Sodium 161 H* Potassium Chloride 129.8 H Carbon Dioxide 20 L BUN 80 H Creatinine 2.9 H Glucose 139 H POC Glucose 115 H 119 H Lactic Acid Calcium 8.3 L Phosphorus AST Total Creatine Kinase Troponin T HDL Cholesterol Arterial Blood Glucose Arterial Blood Ionized Calcium Urine WBC (Auto) Urine Creatinine 09/28/20 09/29/20 09/29/20 23:26 00:50 05:13 WBC RBC Hgb Hct MCV RDW Plt Count Lymph % (Auto) Mcintosh % (Auto) Lymph # (Auto) Mcintosh # (Auto) Seg Neutrophils % Seg Neuts % (Manual) Lymphocytes % (Manual) Seg Neutrophils # PT INR ABG pH POC ABG pCO2 POC ABG pO2 ABG pO2 ABG HCO3 ABG O2 Saturation ABG Base Excess ABG Oxyhemoglobin ABG Sodium ABG Potassium ABG Chloride ABG Glucose Sodium 164 H* Potassium Chloride 128.9 H Carbon Dioxide BUN 84 H Creatinine 3.1 H Glucose 125 H POC Glucose 121 H 116 H Lactic Acid Calcium Phosphorus AST Total Creatine Kinase Troponin T HDL Cholesterol Arterial Blood Glucose Arterial Blood Ionized Calcium Urine WBC (Auto) Urine Creatinine Assessment and Plan Assessment and Plan Assessment and plan: This is a 50-year-old male with heart failure and hypertension who presents to the emergency department on 09/21 with cardiac arrest after syncopal episode about 45 minutes prior to arrival to the emergency department. Upon arrival to the emergency department patient was found to be hypotensive and subsequently started on pressors with significant improvement in his blood pressure. Work-up in the emergency department reveals lactic acidosis, initial troponin within normal limits however subsequent troponins were elevated, no obvious ischemic changes on EKG, UDS positive for marijuana, urinalysis significant for urinary tract infection, BUN/creatinine slightly elevated 26/21. CXR showed severe cardiomegaly with mild interstitial pulmonary edema. Patient was admitted to the hospital service with consults to CCM, cardiology and nephrology s/p cardiac arrest, UTI, JAMEY, lactic acidosis and hypotension. -MRI reviewed concerning for anoxic brain injury -09/20 CXR shows cardiomegaly -09/21 echocardiogram shows severely dilated left ventricle, , LVEF 10 to 15%, -Renal ultrasound dystrophic kidney -09/23 CT head shows loss of reyna-white differentiation diffusely likely due to diffuse cerebral edema, without hemorrhage. Evaluation limited by artifact -09/23 Bilateral carotid ultrasound < 50% bilateral #S/p cardiac arrest Acute hypoxic respiratory failure Acute toxic and anoxic encephalopathy #Acute kidney injury with underlying ATN -80/2.9 #Sepsis #Cardiomyopathy left ejection fraction of 10 to 15% #Acute cystitis #Leukocytosis #Hypernatremia- Persistent #Coagulopathic #Transaminitis likely secondary to sepsis #Hyperchloremia #Metabolic acidosis #Lactic acidosis #Hypertension over all Prognosis is poor GI/DVT prophylaxis: PPI, heparin subcu, SCDs to bilateral lower extremities while in bed Disposition: ICU PLAN 1- EEG 2-Correct electrolytes abnormalites 3- Treat underlying infection 4-No sedation will follow
[2020-09-29 08:10] LABS: Hematocrit 35.1 % (35.5-45.6); Hemoglobin 11.5 gm/dl (11.8-15.2); Mean Corpuscular HGB Conc 33 % (32-34); Mean Corpuscular Volume 92 fl (84-94); Platelet Count 114 K/mm3 (140-440)
[2020-09-29 08:24] LABS: Calcium 8.5 mg/dL (8.4-10.2)
[2020-09-29] MEDS: ASPIRIN 325 MG TAB PO SCH (10:20)
[2020-09-29] MEDS: FAMOTIDINE 20 MG TAB PO SCH (10:20)
[2020-09-29] MEDS: LINEZOLID 600 MG TAB PO SCH (10:20)
[2020-09-29] MEDS: HEPARIN 5,000 UNIT/1 ML VIAL SUB-Q SCH ×2 (10:20→21:58)
--- NOTE | 2020-09-29 11:35 | Progress Note ---
Assessment and Plan Cultures: SARS-CoV-2 PCR negative. Sputum culture 09/20/2020 upper respiratory misha. Urine culture 09/20/2020 10-100,000 mixed colonies. Blood culture 09/21/2020 no growth today. Blood culture 09/25/2020 no growth today Tracheal aspirate culture 09/25/2020 MRSA MRSA PCR positive Tracheal aspirate culture 09/26/2020 MRSA Assessment: 50-year-old male with history of hypertension, admitted on 09/20/2020 secondary to syncope followed up by outside cardiac arrest: #SIRS rule out sepsis: remains with high fever likely central +/- MRSA VAP; likely secondary to [id number]-hospital cardiac arrest +/-UTI. Chest x-ray without evidence of consolidation. Blood culture so far negative. Persistent fever likely secondary to central fever from anoxic brain injury. #MRSA VAP: Tracheal aspirate grew MRSA x2. On linezolid for 3 days. Platelets dropping will switch to vancomycin. #UTI: Urine culture grew mixed bacteria. Completed Rocephin for 5 days. #Chpxkmj-sj-hun-hospital cardiac arrest: per cards #Acute encephalopathy: Likely secondary to anoxic brain injury. Brain MRI shows diffuse cerebral cortical restricted diffuse edema consistent with anoxic brain. #Cardiomyopathy: Transthoracic echo shows severely dilated left ventricle, the ventricle systolic function severely decreased, borderline concentric left ventricle hypertrophy, severe global hypokinesis of the left ventricle, LVEF 10 to 15%, mild MR. Cardiology on board. #JAMEY: Worsening. #Transaminitis: Likely due to sepsis. #Thrombocytopenia: Mild Recommendations -Stop linezolid due to worsening thrombocytopenia D3 -Restart vancomycin renally adjusted D3 of 10 for MRSA VAP -Monitor platelets -Monitor fever likely central fever component Guarded prognosis Will follow. Briseida Antonio MD Infectious Diseases [employer] [facility] ([facility] M [phone] O [phone] Subjective Date of service: 09/29/20 Principal diagnosis: Acute respiratory failure Interval history: Patient remains intubated, noted fever trending down today, no other acute events. Objective - Exam Narrative Exam: General appearance: Intubated unresponsive Eyes: anicteric sclerae, moist conjunctivae; no lid-lag; PERRLA HENT: Normocephalic, Atraumatic; normal external ears, nares open, oropharynx endotracheal tube in place creamy secretions Neck: supple, tracheal midline, no JVD Lungs: Bilateral rhonchi CV: RRR no murmur Abdomen: Soft, non-tender; no masses or hepatosplenomegaly Extremities: no edema, no cyanosis Skin: No rash. Psych: Unresponsive Neuro: Unresponsive - Constitutional Vitals: Vital Signs Temp Pulse Resp BP Pulse Ox 99.9 F H 82 26 H 102/67 98 09/29/20 09:00 09/29/20 11:17 09/29/20 11:17 09/29/20 11:17 09/29/20 11:17 Temperature -Last 24 Hours Temperature 99.9 F Temperature 101.7 F Temperature 98.9 F Temperature 101.1 F Temperature 99.4 F - Labs CBC & Chem 7: 09/29/20 07:24 09/29/20 07:24 Labs: Abnormal lab results 09/28/20 09/28/20 09/28/20 Range/Units 03:20 12:01 12:51 WBC (4.5-11.0) K/mm3 Hgb (11.8-15.2) gm/dl Hct (35.5-45.6) % RDW (13.2-15.2) % Plt Count (140-440) K/mm3 POC ABG pCO2 30.0 L (32.0-48.0) mmHg POC ABG pO2 72.7 L (83-108) mmHg ABG Sodium 159.8 H (136.0-145.0) mmol/L ABG Chloride 131.0 H (98-107) mmol/L ABG Glucose 156 H (65-95) mg/dL Sodium 161 H* (137-145) mmol/L Chloride 129.8 H (98-107) mmol/L Carbon Dioxide 20 L (22-30) mmol/L BUN 80 H (9-20) mg/dL Creatinine 2.9 H (0.8-1.3) mg/dL Glucose 139 H (75-100) mg/dL POC Glucose 115 H (70-105) mg/dL Calcium 8.3 L (8.4-10.2) mg/dL Arterial Blood Glucose 156 H (65-95) mg/dL 09/28/20 09/28/20 09/29/20 Range/Units 17:43 23:26 00:50 WBC (4.5-11.0) K/mm3 Hgb (11.8-15.2) gm/dl Hct (35.5-45.6) % RDW (13.2-15.2) % Plt Count (140-440) K/mm3 POC ABG pCO2 (32.0-48.0) mmHg POC ABG pO2 (83-108) mmHg ABG Sodium (136.0-145.0) mmol/L ABG Chloride (98-107) mmol/L ABG Glucose (65-95) mg/dL Sodium 164 H* (137-145) mmol/L Chloride 128.9 H (98-107) mmol/L Carbon Dioxide (22-30) mmol/L BUN 84 H (9-20) mg/dL Creatinine 3.1 H (0.8-1.3) mg/dL Glucose 125 H (75-100) mg/dL POC Glucose 119 H 121 H (70-105) mg/dL Calcium (8.4-10.2) mg/dL Arterial Blood Glucose (65-95) mg/dL 09/29/20 09/29/20 09/29/20 Range/Units 05:13 07:24 07:24 WBC 17.2 H (4.5-11.0) K/mm3 Hgb 11.5 L (11.8-15.2) gm/dl Hct 35.1 L (35.5-45.6) % RDW 16.0 H (13.2-15.2) % Plt Count 114 L (140-440) K/mm3 POC ABG pCO2 (32.0-48.0) mmHg POC ABG pO2 (83-108) mmHg ABG Sodium (136.0-145.0) mmol/L ABG Chloride (98-107) mmol/L ABG Glucose (65-95) mg/dL Sodium 167 H* (137-145) mmol/L Chloride 133.5 H (98-107) mmol/L Carbon Dioxide (22-30) mmol/L BUN 95 H (9-20) mg/dL Creatinine 3.1 H (0.8-1.3) mg/dL Glucose 157 H (75-100) mg/dL POC Glucose 116 H (70-105) mg/dL Calcium (8.4-10.2) mg/dL Arterial Blood Glucose (65-95) mg/dL
[2020-09-29] MEDS ORDERED: VANCOMYCIN PHARMACY TO DOSE IV SCH (12:00)
--- NOTE | 2020-09-29 13:20 | Progress Note ---
Assessment and Plan S/p Cardiac arrest Acute hypoxic Respiratory failure JAMEY likely 2/2 ischemic ATN, cardiac arrest Cardiomyopathy, EF 10-15% Acute toxic and anoxic metabolic encephalopathy Sepsis Hyperchloremia Transaminitis Hypotension Plan: slowly rising Cr, good UP 500 cc 1/2 bolus for hypotension will increase D5W to 150 cc/h due to rising sodium, non polyuric, unlikely DI will check BMP Q8H, please increase D5W rate if Na cont to rise No acute indication for HD today Continue free water 300 ml via orogastric tube q 4 hrs Renally dose medications Strict I&O's [place] Catheter: Yes Subjective Date of service: 09/29/20 Principal diagnosis: Acute respiratory failure Interval history: intubated Objective - Vital Signs Vital signs: Vital Signs - 12hr 09/29/20 09/29/20 09/29/20 01:30 02:00 02:30 Temperature Pulse Rate 95 H 103 H 97 H Pulse Rate [ From Monitor] Respiratory 28 H 27 H 28 H Rate Blood Pressure 105/71 109/92 97/66 O2 Sat by Pulse 90 94 95 Oximetry 09/29/20 09/29/20 09/29/20 03:00 03:14 03:30 Temperature 101.7 F H Pulse Rate 96 H 97 H Pulse Rate [ From Monitor] Respiratory 28 H 28 H Rate Blood Pressure 102/62 101/67 O2 Sat by Pulse 90 95 Oximetry 09/29/20 09/29/20 09/29/20 04:00 04:30 04:58 Temperature Pulse Rate 99 H 99 H 96 H Pulse Rate [ 99 H From Monitor] Respiratory 30 H 28 H Rate Blood Pressure 106/73 103/67 101/67 O2 Sat by Pulse 96 96 96 Oximetry 09/29/20 09/29/20 09/29/20 05:00 05:30 06:00 Temperature Pulse Rate 102 H 98 H 98 H Pulse Rate [ From Monitor] Respiratory 27 H 28 H 28 H Rate Blood Pressure 103/61 107/67 105/66 O2 Sat by Pulse 92 96 95 Oximetry 09/29/20 09/29/20 09/29/20 06:30 06:57 06:58 Temperature Pulse Rate 94 H 90 90 Pulse Rate [ From Monitor] Respiratory 27 H Rate Blood Pressure 105/63 105/63 105/63 O2 Sat by Pulse 92 Oximetry 09/29/20 09/29/20 09/29/20 08:00 09:00 11:17 Temperature 99.9 F H Pulse Rate 85 82 Pulse Rate [ From Monitor] Respiratory 26 H Rate Blood Pressure 105/63 102/67 O2 Sat by Pulse 97 98 Oximetry 09/29/20 12:00 Temperature 99.9 F H Pulse Rate Pulse Rate [ From Monitor] Respiratory Rate Blood Pressure O2 Sat by Pulse Oximetry - Lab 09/29/20 07:24 09/29/20 07:24 Most recent lab results ABG pH 7.439 (7.320-7.450) 09/28/20 03:20 ABG pCO2 40.5 mm Hg 09/21/20 02:15 ABG pO2 244.1 mm Hg (80.0-90.0) H 09/21/20 02:15 ABG HCO3 17.7 mmol/L (20.0-26.0) L 09/21/20 02:15 ABG O2 Saturation 95.7 (0-100) 09/28/20 03:20 Calcium 8.5 mg/dL (8.4-10.2) 09/29/20 07:24 Phosphorus 2.50 mg/dL (2.5-4.5) D 09/27/20 04:40 Urine Creatinine 60.4 mg/dL (0.1-20.0) H 09/21/20 14:27 Urine Sodium 108 mmol/L 09/21/20 14:27 Medications & Allergies - Medications Allergies/Adverse Reactions: Allergies No Known Allergies Allergy (Unverified 09/20/20 23:08) Home Medications: Home Medications Medication Instructions Recorded Confirmed Last Taken Type Furosemide [Lasix] 40 mg PO QDAY 09/21/20 09/21/20 Unknown History Simvastatin 20 mg PO QDAY 09/21/20 09/21/20 Unknown History amLODIPine [Norvasc] 5 mg PO DAILY 09/21/20 09/21/20 Unknown History carvediloL [Coreg] 25 mg PO BID 09/21/20 09/21/20 Unknown History lisinopriL [Zestril TAB] 40 mg PO QDAY 09/21/20 09/21/20 Unknown History Active Medications: Generic Name Dose Route Start Last Admin Trade Name Freq PRN Reason Stop Dose Admin Acetaminophen 650 mg 09/21/20 15:51 09/29/20 04:00 Acetaminophen 325 Mg/10.15 Ml Oral Liqd Unit Dose FEEDTUBE 650 mg Q6H PRN Administration Pain, Mild (1-3) Lipase/Protease/Amylase 1 each 09/25/20 14:22 Lipase 10,500/Protease 25,000/Amylase 43,750 (Units) Dr Cap FEEDTUBE PRN PRN For Clogged Feeding Tube Aspirin 325 mg 09/21/20 16:00 09/29/20 10:20 Aspirin 325 Mg Tab PO 325 mg QDAY PATSY Administration Atorvastatin Calcium 40 mg 09/23/20 22:00 09/28/20 21:52 Atorvastatin 40 Mg Tab PO 40 mg QHS PATSY Administration Famotidine 20 mg 09/25/20 10:00 09/29/20 10:20 Famotidine 20 Mg Tab PO 20 mg DAILY PATSY Administration Heparin Sodium (Porcine) 5,000 unit 09/21/20 22:00 09/29/20 10:20 Heparin 5,000 Unit/1 Ml Vial SUB-Q 5,000 unit Q12HR PATSY Administration Hydralazine HCl 5 mg 09/23/20 14:00 09/29/20 10:14 Hydralazine 20 Mg/1 Ml Inj IV Not Given Q4HR PATSY Hydrophilic Ointment 1 applic 09/20/20 22:59 Lip Therapy Vaseline TP Q2HR PRN Dry Lips Norepinephrine 4 mg in 250 mls @ 7.5 mls/hr 09/21/20 05:00 Levophed Drip 4 Mg/Ns 250 Ml IV TITR PATSY Protocol 2 MCG/MIN Fentanyl Citrate 2,000 mcg in 100 mls @ 5.105 mls/hr 09/22/20 11:30 09/25/20 18:17 Fentanyl Drip Premix IV 0 mcg/kg/hr TITR PATSY 0 mls/hr Titration Protocol 1 MCG/KG/HR Dextrose 1,000 mls @ 100 mls/hr 09/28/20 22:00 09/28/20 22:15 D5w IV 100 mls/hr DIRECT PATSY Administration Vancomycin HCl 2,000 mg/ 540 mls @ 250 mls/hr 09/29/20 20:00 Sodium Chloride IV 09/29/20 22:09 ONCE ONE Dextrose 1,000 mls @ 150 mls/hr 09/29/20 14:00 D5w IV DIRECT PATSY Metoprolol Tartrate 50 mg 09/27/20 18:00 09/29/20 12:36 Metoprolol Tartrate 50 Mg Tab PO Not Given Q6HR PATSY Multi-Ingred Cream/Lotion/Oil/Oint 1 applic 09/20/20 22:59 Mineral Oil/Petrolatum, White Ophth Oint 3.5 Gm OU Q4HR PRN Dry Eye(s) Ondansetron HCl 4 mg 09/21/20 01:24 Ondansetron 4 Mg/2 Ml Inj IV Q8H PRN Nausea And Vomiting Simple Syrup 15 ml 09/25/20 14:22 Simple Syrup 15 Ml FEEDTUBE PRN PRN Hypoglycemia Simple Syrup 30 ml 09/25/20 14:22 Simple Syrup 15 Ml FEEDTUBE PRN PRN Hypoglycemia Sodium Bicarbonate 325 mg 09/25/20 14:22 Sodium Bicarbonate 325 Mg Tab FEEDTUBE PRN PRN For Clogged Feeding Tube Sodium Chloride 10 ml 09/21/20 10:00 09/29/20 10:21 Sodium Chloride 0.9% 10 Ml Flush Syringe IV 10 ml BID PATSY Administration Sodium Chloride 10 ml 09/21/20 01:24 09/24/20 18:21 Sodium Chloride 0.9% 10 Ml Flush Syringe IV 10 ml PRN PRN Administration LINE FLUSH
[2020-09-29 14:00] LABS: Calcium 8.7 mg/dL (8.4-10.2)
[2020-09-29] MEDS ORDERED: SODIUM CHLORIDE 0.45% 1000 ML 1,000 ML IV SCH (14:00)
[2020-09-29] MEDS ORDERED: SODIUM CHLORIDE 0.45% 1000 ML IV SOLN IV SCH (14:00)
[2020-09-29] MEDS: DEXTROSE 5% IN WATER 1,000 ML IV SCH ×2 (14:06→22:58)
--- NOTE | 2020-09-29 15:29 | Progress Note ---
Assessment and Plan Imp: 1. S/p CP arrest 2. Severe dilated CMP 3. Chronic systolic CHF 4. Anoxic encephalopathy 5. Acute respiratory failure, hypoxia 6. JAMEY 7. Hypernatremia Rec: 1. Holding sedation 2. Mentation precludes extubation though pulmonary mechanics are good 3. F/u ID and cardiology recs; agree fevers likely central in origin, though on ABX for Staph aureus in sputum 4. TFs, SubQ heparin, Pepcid; free water flushes and D5W per renal; f/u labs in AM 5. Should strongly consider withdrawal of care/hospice; neurology eval. in progress 6. High complexity No family present today Subjective Date of service: 09/29/20 Principal diagnosis: Acute respiratory failure Interval history: No events. Off sedation and unresponsive on ventilator. Tolerating PSV 02/21. Active Medications Acetaminophen (Acetaminophen 325 Mg/10.15 Ml Oral Liqd Unit Dose) 650 mg FEEDTUBE Q6H PRN PRN Reason: Pain, Mild (1-3) Last Admin: 09/29/20 04:00 Dose: 650 mg Documented by: Lipase/Protease/Amylase (Lipase 10,500/Protease 25,000/Amylase 43,750 (Units) Dr Cap) 1 each FEEDTUBE PRN PRN PRN Reason: For Clogged Feeding Tube Aspirin (Aspirin 325 Mg Tab) 325 mg PO QDAY [facility] Last Admin: 09/29/20 10:20 Dose: 325 mg Documented by: Atorvastatin Calcium (Atorvastatin 40 Mg Tab) 40 mg PO QHS [facility] Last Admin: 09/28/20 21:52 Dose: 40 mg Documented by: Famotidine (Famotidine 20 Mg Tab) 20 mg PO DAILY [facility] Last Admin: 09/29/20 10:20 Dose: 20 mg Documented by: Heparin Sodium (Porcine) (Heparin 5,000 Unit/1 Ml Vial) 5,000 unit SUB-Q Q12HR [facility] Last Admin: 09/29/20 10:20 Dose: 5,000 unit Documented by: Hydralazine HCl (Hydralazine 20 Mg/1 Ml Inj) 5 mg IV Q4HR [facility] Last Admin: 09/29/20 13:32 Dose: Not Given Documented by: Hydrophilic Ointment (Lip Therapy Vaseline) 1 applic TP Q2HR PRN PRN Reason: Dry Lips Norepinephrine (Levophed Drip 4 Mg/Ns 250 Ml) 4 mg in 250 mls @ 7.5 mls/hr IV TITR PATSY; Protocol Fentanyl Citrate (Fentanyl Drip Premix) 2,000 mcg in 100 mls @ 5.105 mls/hr IV TITR PATSY; Protocol Last Titration: 09/25/20 18:17 Dose: 0 mcg/kg/hr, 0 mls/hr Documented by: Vancomycin HCl 2,000 mg/ (Sodium Chloride) 540 mls @ 250 mls/hr IV ONCE ONE Stop: 09/29/20 22:09 Dextrose (D5w) 1,000 mls @ 150 mls/hr IV DIRECT PATSY Last Admin: 09/29/20 14:06 Dose: 150 mls/hr Documented by: Metoprolol Tartrate (Metoprolol Tartrate 50 Mg Tab) 50 mg PO Q6HR PATSY Last Admin: 09/29/20 12:36 Dose: Not Given Documented by: Multi-Ingred Cream/Lotion/Oil/Oint (Mineral Oil/Petrolatum, White Ophth Oint 3.5 Gm) 1 applic OU Q4HR PRN PRN Reason: Dry Eye(s) Ondansetron HCl (Ondansetron 4 Mg/2 Ml Inj) 4 mg IV Q8H PRN PRN Reason: Nausea And Vomiting Simple Syrup (Simple Syrup 15 Ml) 15 ml FEEDTUBE PRN PRN PRN Reason: Hypoglycemia Simple Syrup (Simple Syrup 15 Ml) 30 ml FEEDTUBE PRN PRN PRN Reason: Hypoglycemia Sodium Bicarbonate (Sodium Bicarbonate 325 Mg Tab) 325 mg FEEDTUBE PRN PRN PRN Reason: For Clogged Feeding Tube Sodium Chloride (Sodium Chloride 0.9% 10 Ml Flush Syringe) 10 ml IV BID PATSY Last Admin: 09/29/20 10:21 Dose: 10 ml Documented by: Sodium Chloride (Sodium Chloride 0.9% 10 Ml Flush Syringe) 10 ml IV PRN PRN PRN Reason: LINE FLUSH Last Admin: 09/24/20 18:21 Dose: 10 ml Documented by: Objective Vital Signs - 12hr 09/29/20 09/29/20 09/29/20 03:30 04:00 04:30 Temperature Pulse Rate 97 H 99 H 99 H Pulse Rate [ 99 H From Monitor] Respiratory 28 H 30 H 28 H Rate Blood Pressure 101/67 106/73 103/67 O2 Sat by Pulse 95 96 96 Oximetry 09/29/20 09/29/20 09/29/20 04:58 05:00 05:30 Temperature Pulse Rate 96 H 102 H 98 H Pulse Rate [ From Monitor] Respiratory 27 H 28 H Rate Blood Pressure 101/67 103/61 107/67 O2 Sat by Pulse 96 92 96 Oximetry 09/29/20 09/29/20 09/29/20 06:00 06:30 06:57 Temperature Pulse Rate 98 H 94 H 90 Pulse Rate [ From Monitor] Respiratory 28 H 27 H Rate Blood Pressure 105/66 105/63 105/63 O2 Sat by Pulse 95 92 Oximetry 09/29/20 09/29/20 09/29/20 06:58 08:00 09:00 Temperature 99.9 F H Pulse Rate 90 85 Pulse Rate [ From Monitor] Respiratory Rate Blood Pressure 105/63 105/63 O2 Sat by Pulse 97 Oximetry 09/29/20 09/29/20 11:17 12:00 Temperature 99.9 F H Pulse Rate 82 Pulse Rate [ From Monitor] Respiratory 26 H Rate Blood Pressure 102/67 O2 Sat by Pulse 98 Oximetry Constitutional: other (on vent not responsive no sedation) Eyes: non-icteric ENT: other (intubated, critically ill) Neck: supple Effort: normal Ascultation: Bilateral: clear Cardiovascular: other (sinus tachycardia) Gastrointestinal: normoactive bowel sounds Integumentary: normal Extremities: no cyanosis, no edema, pink and warm Neurologic: other (comatose/unresponsive) Psychiatric: other (unable to assess) CBC and BMP: 09/29/20 07:24 09/29/20 12:52 ABG, PT/INR, D-dimer: ABG ABG pH 7.439 (7.320-7.450) 09/28/20 03:20 POC ABG pCO2 30.0 mmHg (32.0-48.0) L 09/28/20 03:20 ABG pCO2 40.5 mm Hg 09/21/20 02:15 POC ABG pO2 72.7 mmHg (83-108) L 09/28/20 03:20 ABG pO2 244.1 mm Hg (80.0-90.0) H 09/21/20 02:15 POC ABG HCO3 19.9 09/28/20 03:20 ABG O2 Saturation 95.7 (0-100) 09/28/20 03:20 PT/INR, D-dimer PT 15.5 Sec. (12.2-14.9) H 09/22/20 08:26 INR 1.25 (0.87-1.13) H 09/22/20 08:26 Abnormal lab findings: Abnormal Labs 09/20/20 09/20/20 09/20/20 23:02 23:02 23:02 WBC RBC Hgb Hct MCV 96 H RDW 15.8 H Plt Count Lymph % (Auto) Mcpherson % (Auto) Lymph # (Auto) Mcpherson # (Auto) Seg Neutrophils % Seg Neuts % (Manual) 34.0 L Lymphocytes % (Manual) 57.0 H Seg Neutrophils # PT INR 1.14 H ABG pH POC ABG pCO2 POC ABG pO2 ABG pO2 ABG HCO3 ABG O2 Saturation ABG Base Excess ABG Oxyhemoglobin ABG Sodium ABG Potassium ABG Chloride ABG Glucose Sodium Potassium Chloride Carbon Dioxide 21 L BUN 26 H Creatinine 2.1 H Glucose 227 H POC Glucose Lactic Acid Calcium 10.3 H Phosphorus AST 59 H Total Creatine Kinase Troponin T HDL Cholesterol Arterial Blood Glucose Arterial Blood Ionized Calcium Urine WBC (Auto) Urine Creatinine 09/20/20 09/20/20 09/21/20 23:15 23:35 01:20 WBC RBC Hgb Hct MCV RDW Plt Count Lymph % (Auto) Mcpherson % (Auto) Lymph # (Auto) Mcpherson # (Auto) Seg Neutrophils % Seg Neuts % (Manual) Lymphocytes % (Manual) Seg Neutrophils # PT INR ABG pH POC ABG pCO2 POC ABG pO2 ABG pO2 ABG HCO3 ABG O2 Saturation ABG Base Excess ABG Oxyhemoglobin ABG Sodium ABG Potassium ABG Chloride ABG Glucose Sodium Potassium Chloride Carbon Dioxide BUN Creatinine Glucose POC Glucose 197 H Lactic Acid 8.70 H* Calcium Phosphorus AST Total Creatine Kinase Troponin T HDL Cholesterol Arterial Blood Glucose Arterial Blood Ionized Calcium Urine WBC (Auto) 47.0 H Urine Creatinine 09/21/20 09/21/20 09/21/20 02:01 02:15 04:25 WBC RBC Hgb Hct MCV RDW Plt Count Lymph % (Auto) Mcpherson % (Auto) Lymph # (Auto) Mcpherson # (Auto) Seg Neutrophils % Seg Neuts % (Manual) Lymphocytes % (Manual) Seg Neutrophils # PT INR ABG pH 7.258 L POC ABG pCO2 POC ABG pO2 ABG pO2 244.1 H ABG HCO3 17.7 L ABG O2 Saturation 99.4 H ABG Base Excess -8.8 L ABG Oxyhemoglobin ABG Sodium ABG Potassium ABG Chloride ABG Glucose Sodium Potassium Chloride Carbon Dioxide BUN Creatinine Glucose POC Glucose 65 L Lactic Acid Calcium Phosphorus AST Total Creatine Kinase Troponin T 0.865 H* D HDL Cholesterol 60 H Arterial Blood Glucose Arterial Blood Ionized Calcium Urine WBC (Auto) Urine Creatinine 09/21/20 09/21/20 09/21/20 04:34 04:34 07:03 WBC RBC Hgb 16.9 H D Hct 51.3 H D MCV RDW Plt Count Lymph % (Auto) Mcpherson % (Auto) Lymph # (Auto) Mcpherson # (Auto) Seg Neutrophils % Seg Neuts % (Manual) Lymphocytes % (Manual) Seg Neutrophils # PT INR ABG pH POC ABG pCO2 POC ABG pO2 ABG pO2 ABG HCO3 ABG O2 Saturation ABG Base Excess ABG Oxyhemoglobin ABG Sodium ABG Potassium ABG Chloride ABG Glucose Sodium Potassium Chloride Carbon Dioxide BUN Creatinine Glucose POC Glucose Lactic Acid 3.00 H* Calcium Phosphorus AST Total Creatine Kinase Troponin T 1.880 H* D HDL Cholesterol Arterial Blood Glucose Arterial Blood Ionized Calcium Urine WBC (Auto) Urine Creatinine 09/21/20 09/21/20 09/21/20 07:03 07:32 07:53 WBC 19.2 H RBC 5.31 H Hgb 16.0 H Hct 49.0 H MCV RDW 15.7 H Plt Count Lymph % (Auto) Mcpherson % (Auto) Lymph # (Auto) Mcpherson # (Auto) Seg Neutrophils % Seg Neuts % (Manual) Lymphocytes % (Manual) Seg Neutrophils # PT 16.3 H INR 1.31 H ABG pH POC ABG pCO2 POC ABG pO2 ABG pO2 ABG HCO3 ABG O2 Saturation ABG Base Excess ABG Oxyhemoglobin ABG Sodium ABG Potassium ABG Chloride ABG Glucose Sodium Potassium Chloride Carbon Dioxide BUN Creatinine Glucose POC Glucose 60 L Lactic Acid Calcium Phosphorus AST Total Creatine Kinase Troponin T HDL Cholesterol Arterial Blood Glucose Arterial Blood Ionized Calcium Urine WBC (Auto) Urine Creatinine 09/21/20 09/21/20 09/21/20 07:53 09:30 10:08 WBC RBC Hgb Hct MCV RDW Plt Count Lymph % (Auto) Mcpherson % (Auto) Lymph # (Auto) Mcpherson # (Auto) Seg Neutrophils % Seg Neuts % (Manual) Lymphocytes % (Manual) Seg Neutrophils # PT 15.4 H INR 1.24 H ABG pH POC ABG pCO2 POC ABG pO2 ABG pO2 ABG HCO3 ABG O2 Saturation ABG Base Excess ABG Oxyhemoglobin ABG Sodium ABG Potassium ABG Chloride ABG Glucose Sodium 146 H Potassium 3.5 L Chloride 109.6 H Carbon Dioxide 20 L BUN 37 H Creatinine 2.8 H Glucose 127 H POC Glucose Lactic Acid 3.00 H* Calcium Phosphorus AST Total Creatine Kinase Troponin T HDL Cholesterol Arterial Blood Glucose Arterial Blood Ionized Calcium Urine WBC (Auto) Urine Creatinine 09/21/20 09/21/20 09/21/20 10:34 11:22 11:44 WBC RBC Hgb Hct MCV RDW Plt Count Lymph % (Auto) Mcpherson % (Auto) Lymph # (Auto) Mcpherson # (Auto) Seg Neutrophils % Seg Neuts % (Manual) Lymphocytes % (Manual) Seg Neutrophils # PT INR ABG pH POC ABG pCO2 25.9 L POC ABG pO2 196.9 H ABG pO2 ABG HCO3 ABG O2 Saturation ABG Base Excess ABG Oxyhemoglobin 98.4 H ABG Sodium ABG Potassium 3.3 L ABG Chloride 113.0 H ABG Glucose 130 H Sodium Potassium Chloride Carbon Dioxide BUN Creatinine Glucose POC Glucose 126 H 127 H Lactic Acid Calcium Phosphorus AST Total Creatine Kinase Troponin T HDL Cholesterol Arterial Blood Glucose 130 H Arterial Blood Ionized Calcium Urine WBC (Auto) Urine Creatinine 09/21/20 09/21/20 09/21/20 14:27 14:27 15:09 WBC RBC Hgb Hct MCV RDW Plt Count Lymph % (Auto) Mcpherson % (Auto) Lymph # (Auto) Mcpherson # (Auto) Seg Neutrophils % Seg Neuts % (Manual) Lymphocytes % (Manual) Seg Neutrophils # PT INR ABG pH POC ABG pCO2 POC ABG pO2 ABG pO2 ABG HCO3 ABG O2 Saturation ABG Base Excess ABG Oxyhemoglobin ABG Sodium ABG Potassium ABG Chloride ABG Glucose Sodium Potassium Chloride Carbon Dioxide BUN Creatinine Glucose POC Glucose 135 H Lactic Acid Calcium Phosphorus AST Total Creatine Kinase Troponin T HDL Cholesterol Arterial Blood Glucose Arterial Blood Ionized Calcium Urine WBC (Auto) 12.0 H Urine Creatinine 60.4 H 09/21/20 09/21/20 09/21/20 15:54 15:54 16:13 WBC RBC Hgb Hct MCV RDW Plt Count Lymph % (Auto) Mcpherson % (Auto) Lymph # (Auto) Mcpherson # (Auto) Seg Neutrophils % Seg Neuts % (Manual) Lymphocytes % (Manual) Seg Neutrophils # PT INR ABG pH POC ABG pCO2 POC ABG pO2 ABG pO2 ABG HCO3 ABG O2 Saturation ABG Base Excess ABG Oxyhemoglobin ABG Sodium ABG Potassium ABG Chloride ABG Glucose Sodium Potassium Chloride Carbon Dioxide BUN Creatinine Glucose POC Glucose 131 H Lactic Acid 3.60 H* Calcium Phosphorus AST Total Creatine Kinase 3606 H Troponin T HDL Cholesterol Arterial Blood Glucose Arterial Blood Ionized Calcium Urine WBC (Auto) Urine Creatinine 09/21/20 09/21/20 09/21/20 18:02 19:48 20:57 WBC RBC Hgb Hct MCV RDW Plt Count Lymph % (Auto) Mcpherson % (Auto) Lymph # (Auto) Mcpherson # (Auto) Seg Neutrophils % Seg Neuts % (Manual) Lymphocytes % (Manual) Seg Neutrophils # PT INR ABG pH POC ABG pCO2 POC ABG pO2 ABG pO2 ABG HCO3 ABG O2 Saturation ABG Base Excess ABG Oxyhemoglobin ABG Sodium ABG Potassium ABG Chloride ABG Glucose Sodium Potassium Chloride Carbon Dioxide BUN Creatinine Glucose POC Glucose 139 H 184 H 173 H Lactic Acid Calcium Phosphorus AST Total Creatine Kinase Troponin T HDL Cholesterol Arterial Blood Glucose Arterial Blood Ionized Calcium Urine WBC (Auto) Urine Creatinine 09/21/20 09/21/20 09/21/20 22:02 22:27 23:54 WBC RBC Hgb Hct MCV RDW Plt Count Lymph % (Auto) Mcpherson % (Auto) Lymph # (Auto) Mcpherson # (Auto) Seg Neutrophils % Seg Neuts % (Manual) Lymphocytes % (Manual) Seg Neutrophils # PT INR ABG pH POC ABG pCO2 POC ABG pO2 ABG pO2 ABG HCO3 ABG O2 Saturation ABG Base Excess ABG Oxyhemoglobin ABG Sodium ABG Potassium ABG Chloride ABG Glucose Sodium Potassium Chloride Carbon Dioxide BUN Creatinine Glucose POC Glucose 147 H 142 H 143 H Lactic Acid Calcium Phosphorus AST Total Creatine Kinase Troponin T HDL Cholesterol Arterial Blood Glucose Arterial Blood Ionized Calcium Urine WBC (Auto) Urine Creatinine 09/22/20 09/22/20 09/22/20 00:49 02:01 02:14 WBC RBC Hgb Hct MCV RDW Plt Count Lymph % (Auto) Mcpherson % (Auto) Lymph # (Auto) Mcpherson # (Auto) Seg Neutrophils % Seg Neuts % (Manual) Lymphocytes % (Manual) Seg Neutrophils # PT INR ABG pH POC ABG pCO2 POC ABG pO2 ABG pO2 ABG HCO3 ABG O2 Saturation ABG Base Excess ABG Oxyhemoglobin ABG Sodium ABG Potassium ABG Chloride ABG Glucose Sodium Potassium Chloride Carbon Dioxide BUN Creatinine Glucose POC Glucose 154 H 154 H 149 H Lactic Acid Calcium Phosphorus AST Total Creatine Kinase Troponin T HDL Cholesterol Arterial Blood Glucose Arterial Blood Ionized Calcium Urine WBC (Auto) Urine Creatinine 09/22/20 09/22/20 09/22/20 02:57 03:21 03:58 WBC RBC Hgb Hct MCV RDW Plt Count Lymph % (Auto) Mcpherson % (Auto) Lymph # (Auto) Mcpherson # (Auto) Seg Neutrophils % Seg Neuts % (Manual) Lymphocytes % (Manual) Seg Neutrophils # PT INR ABG pH 7.496 H POC ABG pCO2 25.0 L POC ABG pO2 73.8 L ABG pO2 ABG HCO3 ABG O2 Saturation ABG Base Excess ABG Oxyhemoglobin ABG Sodium ABG Potassium ABG Chloride 115.0 H ABG Glucose 154 H Sodium Potassium Chloride Carbon Dioxide BUN Creatinine Glucose POC Glucose 166 H 158 H Lactic Acid Calcium Phosphorus AST Total Creatine Kinase Troponin T HDL Cholesterol Arterial Blood Glucose 154 H Arterial Blood Ionized Calcium 4.5 L Urine WBC (Auto) Urine Creatinine 09/22/20 09/22/20 09/22/20 05:06 05:56 06:50 WBC RBC Hgb Hct MCV RDW Plt Count Lymph % (Auto) Mcpherson % (Auto) Lymph # (Auto) Mcpherson # (Auto) Seg Neutrophils % Seg Neuts % (Manual) Lymphocytes % (Manual) Seg Neutrophils # PT INR ABG pH POC ABG pCO2 POC ABG pO2 ABG pO2 ABG HCO3 ABG O2 Saturation ABG Base Excess ABG Oxyhemoglobin ABG Sodium ABG Potassium ABG Chloride ABG Glucose Sodium Potassium Chloride Carbon Dioxide BUN Creatinine Glucose POC Glucose 147 H 145 H 137 H Lactic Acid Calcium Phosphorus AST Total Creatine Kinase Troponin T HDL Cholesterol Arterial Blood Glucose Arterial Blood Ionized Calcium Urine WBC (Auto) Urine Creatinine 09/22/20 09/22/20 09/22/20 08:02 08:26 08:26 WBC 15.2 H RBC Hgb Hct MCV RDW 16.0 H Plt Count Lymph % (Auto) 7.6 L Mcpherson % (Auto) Lymph # (Auto) Mcpherson # (Auto) 1.0 H Seg Neutrophils % 86.0 H Seg Neuts % (Manual) Lymphocytes % (Manual) Seg Neutrophils # 13.0 H PT 15.5 H INR 1.25 H ABG pH POC ABG pCO2 POC ABG pO2 ABG pO2 ABG HCO3 ABG O2 Saturation ABG Base Excess ABG Oxyhemoglobin ABG Sodium ABG Potassium ABG Chloride ABG Glucose Sodium Potassium Chloride Carbon Dioxide BUN Creatinine Glucose POC Glucose 149 H Lactic Acid Calcium Phosphorus AST Total Creatine Kinase Troponin T HDL Cholesterol Arterial Blood Glucose Arterial Blood Ionized Calcium Urine WBC (Auto) Urine Creatinine 09/22/20 09/22/20 09/22/20 08:26 12:04 15:55 WBC RBC Hgb Hct MCV RDW Plt Count Lymph % (Auto) Mcpherson % (Auto) Lymph # (Auto) Mcpherson # (Auto) Seg Neutrophils % Seg Neuts % (Manual) Lymphocytes % (Manual) Seg Neutrophils # PT INR ABG pH POC ABG pCO2 POC ABG pO2 ABG pO2 ABG HCO3 ABG O2 Saturation ABG Base Excess ABG Oxyhemoglobin ABG Sodium ABG Potassium ABG Chloride ABG Glucose Sodium 146 H Potassium 3.5 L Chloride 114.0 H Carbon Dioxide 18 L BUN 46 H Creatinine 3.7 H Glucose 134 H POC Glucose 138 H 123 H Lactic Acid Calcium 7.7 L Phosphorus AST Total Creatine Kinase Troponin T HDL Cholesterol Arterial Blood Glucose Arterial Blood Ionized Calcium Urine WBC (Auto) Urine Creatinine 09/22/20 09/22/20 09/23/20 21:57 23:41 03:30 WBC 14.2 H RBC Hgb Hct MCV RDW 16.5 H Plt Count 126 L Lymph % (Auto) 8.2 L Mcpherson % (Auto) 7.8 H Lymph # (Auto) Mcpherson # (Auto) 1.1 H Seg Neutrophils % 83.8 H Seg Neuts % (Manual) Lymphocytes % (Manual) Seg Neutrophils # 11.9 H PT INR ABG pH POC ABG pCO2 POC ABG pO2 ABG pO2 ABG HCO3 ABG O2 Saturation ABG Base Excess ABG Oxyhemoglobin ABG Sodium ABG Potassium ABG Chloride ABG Glucose Sodium Potassium Chloride Carbon Dioxide BUN Creatinine Glucose POC Glucose 124 H 130 H Lactic Acid Calcium Phosphorus AST Total Creatine Kinase Troponin T HDL Cholesterol Arterial Blood Glucose Arterial Blood Ionized Calcium Urine WBC (Auto) Urine Creatinine 09/23/20 09/23/20 09/23/20 03:30 03:45 12:33 WBC RBC Hgb Hct MCV RDW Plt Count Lymph % (Auto) Mcpherson % (Auto) Lymph # (Auto) Mcpherson # (Auto) Seg Neutrophils % Seg Neuts % (Manual) Lymphocytes % (Manual) Seg Neutrophils # PT INR ABG pH POC ABG pCO2 POC ABG pO2 ABG pO2 ABG HCO3 ABG O2 Saturation ABG Base Excess ABG Oxyhemoglobin ABG Sodium ABG Potassium ABG Chloride ABG Glucose Sodium Potassium Chloride 110.4 H Carbon Dioxide 19 L BUN 56 H Creatinine 4.7 H Glucose 148 H POC Glucose 132 H 139 H Lactic Acid Calcium 7.4 L Phosphorus 5.80 H D AST Total Creatine Kinase Troponin T HDL Cholesterol Arterial Blood Glucose Arterial Blood Ionized Calcium Urine WBC (Auto) Urine Creatinine 09/23/20 09/23/20 09/24/20 17:54 23:18 02:57 WBC RBC Hgb Hct MCV RDW Plt Count Lymph % (Auto) Mcpherson % (Auto) Lymph # (Auto) Mcpherson # (Auto) Seg Neutrophils % Seg Neuts % (Manual) Lymphocytes % (Manual) Seg Neutrophils # PT INR ABG pH POC ABG pCO2 30.0 L POC ABG pO2 75.1 L ABG pO2 ABG HCO3 ABG O2 Saturation ABG Base Excess ABG Oxyhemoglobin ABG Sodium 149.5 H ABG Potassium ABG Chloride 119.0 H ABG Glucose 144 H Sodium Potassium Chloride Carbon Dioxide BUN Creatinine Glucose POC Glucose 115 H 139 H Lactic Acid Calcium Phosphorus AST Total Creatine Kinase Troponin T HDL Cholesterol Arterial Blood Glucose 144 H Arterial Blood Ionized Calcium Urine WBC (Auto) Urine Creatinine 09/24/20 09/24/20 09/24/20 04:20 04:30 05:10 WBC 14.3 H RBC Hgb Hct MCV RDW 16.6 H Plt Count 135 L Lymph % (Auto) 5.9 L Mcpherson % (Auto) Lymph # (Auto) 0.8 L Mcpherson # (Auto) 0.9 H Seg Neutrophils % 87.5 H Seg Neuts % (Manual) Lymphocytes % (Manual) Seg Neutrophils # 12.5 H PT INR ABG pH POC ABG pCO2 POC ABG pO2 ABG pO2 ABG HCO3 ABG O2 Saturation ABG Base Excess ABG Oxyhemoglobin ABG Sodium ABG Potassium ABG Chloride ABG Glucose Sodium 147 H Potassium Chloride 114.4 H Carbon Dioxide 19 L BUN 50 H Creatinine 3.2 H Glucose 142 H POC Glucose 137 H Lactic Acid Calcium 8.3 L Phosphorus AST Total Creatine Kinase Troponin T HDL Cholesterol Arterial Blood Glucose Arterial Blood Ionized Calcium Urine WBC (Auto) Urine Creatinine 09/24/20 09/24/20 09/24/20 12:03 17:39 23:15 WBC RBC Hgb Hct MCV RDW Plt Count Lymph % (Auto) Mcpherson % (Auto) Lymph # (Auto) Mcpherson # (Auto) Seg Neutrophils % Seg Neuts % (Manual) Lymphocytes % (Manual) Seg Neutrophils # PT INR ABG pH POC ABG pCO2 POC ABG pO2 ABG pO2 ABG HCO3 ABG O2 Saturation ABG Base Excess ABG Oxyhemoglobin ABG Sodium ABG Potassium ABG Chloride ABG Glucose Sodium Potassium Chloride Carbon Dioxide BUN Creatinine Glucose POC Glucose 120 H 155 H 109 H Lactic Acid Calcium Phosphorus AST Total Creatine Kinase Troponin T HDL Cholesterol Arterial Blood Glucose Arterial Blood Ionized Calcium Urine WBC (Auto) Urine Creatinine 09/25/20 09/25/20 09/25/20 03:02 05:16 07:50 WBC 14.0 H RBC Hgb Hct MCV RDW 16.5 H Plt Count Lymph % (Auto) 6.7 L Mcpherson % (Auto) 9.1 H Lymph # (Auto) 0.9 L Mcpherson # (Auto) 1.3 H Seg Neutrophils % 84.1 H Seg Neuts % (Manual) Lymphocytes % (Manual) Seg Neutrophils # 11.8 H PT INR ABG pH POC ABG pCO2 POC ABG pO2 67.4 L ABG pO2 ABG HCO3 ABG O2 Saturation ABG Base Excess ABG Oxyhemoglobin 92.3 L ABG Sodium 157.3 H ABG Potassium ABG Chloride 125.0 H ABG Glucose 147 H Sodium Potassium Chloride Carbon Dioxide BUN Creatinine Glucose POC Glucose 126 H Lactic Acid Calcium Phosphorus AST Total Creatine Kinase Troponin T HDL Cholesterol Arterial Blood Glucose 147 H Arterial Blood Ionized Calcium Urine WBC (Auto) Urine Creatinine 09/25/20 09/25/20 09/25/20 07:50 11:56 14:50 WBC RBC Hgb Hct MCV RDW Plt Count Lymph % (Auto) Mcpherson % (Auto) Lymph # (Auto) Mcpherson # (Auto) Seg Neutrophils % Seg Neuts % (Manual) Lymphocytes % (Manual) Seg Neutrophils # PT INR ABG pH POC ABG pCO2 POC ABG pO2 ABG pO2 ABG HCO3 ABG O2 Saturation ABG Base Excess ABG Oxyhemoglobin ABG Sodium ABG Potassium ABG Chloride ABG Glucose Sodium 160 H D 160 H Potassium Chloride 124.2 H Carbon Dioxide BUN 54 H Creatinine 2.8 H Glucose 124 H POC Glucose 109 H Lactic Acid Calcium 8.3 L Phosphorus AST Total Creatine Kinase Troponin T HDL Cholesterol Arterial Blood Glucose Arterial Blood Ionized Calcium Urine WBC (Auto) Urine Creatinine 09/25/20 09/25/20 09/25/20 18:02 19:45 23:02 WBC RBC Hgb Hct MCV RDW Plt Count Lymph % (Auto) Mcpherson % (Auto) Lymph # (Auto) [place]pherson # (Auto) Seg Neutrophils % Seg Neuts % (Manual) Lymphocytes % (Manual) Seg Neutrophils # PT INR ABG pH POC ABG pCO2 POC ABG pO2 ABG pO2 ABG HCO3 ABG O2 Saturation ABG Base Excess ABG Oxyhemoglobin ABG Sodium ABG Potassium ABG Chloride ABG Glucose Sodium 162 H* 160 H Potassium Chloride Carbon Dioxide BUN Creatinine Glucose POC Glucose 113 H Lactic Acid Calcium Phosphorus AST Total Creatine Kinase Troponin T HDL Cholesterol Arterial Blood Glucose Arterial Blood Ionized Calcium Urine WBC (Auto) Urine Creatinine 09/25/20 09/26/20 09/26/20 23:17 03:30 04:17 WBC 13.9 H RBC Hgb Hct MCV RDW 16.2 H Plt Count 133 L Lymph % (Auto) 7.4 L Mcpherson % (Auto) 11.2 H Lymph # (Auto) 1.0 L Mcpherson # (Auto) 1.6 H Seg Neutrophils % 81.0 H Seg Neuts % (Manual) Lymphocytes % (Manual) Seg Neutrophils # 11.3 H PT INR ABG pH 7.472 H POC ABG pCO2 31.1 L POC ABG pO2 56.5 L ABG pO2 ABG HCO3 ABG O2 Saturation ABG Base Excess ABG Oxyhemoglobin 91.3 L ABG Sodium 159.9 H ABG Potassium ABG Chloride 129.0 H ABG Glucose 135 H Sodium Potassium Chloride Carbon Dioxide BUN Creatinine Glucose POC Glucose 119 H Lactic Acid Calcium Phosphorus AST Total Creatine Kinase Troponin T HDL Cholesterol Arterial Blood Glucose 135 H Arterial Blood Ionized Calcium Urine WBC (Auto) Urine Creatinine 09/26/20 09/26/20 09/26/20 04:17 05:34 11:44 WBC RBC Hgb Hct MCV RDW Plt Count Lymph % (Auto) Mcpherson % (Auto) Lymph # (Auto) [place]pherson # (Auto) Seg Neutrophils % Seg Neuts % (Manual) Lymphocytes % (Manual) Seg Neutrophils # PT INR ABG pH POC ABG pCO2 POC ABG pO2 ABG pO2 ABG HCO3 ABG O2 Saturation ABG Base Excess ABG Oxyhemoglobin ABG Sodium ABG Potassium ABG Chloride ABG Glucose Sodium 162 H* Potassium Chloride 128.4 H Carbon Dioxide BUN 56 H Creatinine 2.5 H Glucose 128 H POC Glucose 135 H 141 H Lactic Acid Calcium Phosphorus 2.00 L D AST Total Creatine Kinase Troponin T HDL Cholesterol Arterial Blood Glucose Arterial Blood Ionized Calcium Urine WBC (Auto) Urine Creatinine 09/26/20 09/26/20 09/26/20 12:12 13:38 17:46 WBC RBC Hgb Hct MCV RDW Plt Count Lymph % (Auto) Mcpherson % (Auto) Lymph # (Auto) Mcpherson # (Auto) Seg Neutrophils % Seg Neuts % (Manual) Lymphocytes % (Manual) Seg Neutrophils # PT INR ABG pH POC ABG pCO2 POC ABG pO2 ABG pO2 ABG HCO3 ABG O2 Saturation ABG Base Excess ABG Oxyhemoglobin ABG Sodium ABG Potassium ABG Chloride ABG Glucose Sodium 160 H Potassium Chloride 127.2 H Carbon Dioxide BUN 60 H Creatinine 2.5 H Glucose 137 H POC Glucose 119 H Lactic Acid Calcium Phosphorus AST Total Creatine Kinase Troponin T HDL Cholesterol Arterial Blood Glucose Arterial Blood Ionized Calcium Urine WBC (Auto) 8.0 H Urine Creatinine 09/26/20 09/27/20 09/27/20 22:25 00:01 00:30 WBC RBC Hgb Hct MCV RDW Plt Count Lymph % (Auto) Mcpherson % (Auto) Lymph # (Auto) Mcpherson # (Auto) Seg Neutrophils % Seg Neuts % (Manual) Lymphocytes % (Manual) Seg Neutrophils # PT INR ABG pH POC ABG pCO2 POC ABG pO2 ABG pO2 ABG HCO3 ABG O2 Saturation ABG Base Excess ABG Oxyhemoglobin ABG Sodium ABG Potassium ABG Chloride ABG Glucose Sodium 161 H* 163 H* Potassium Chloride 129.3 H Carbon Dioxide BUN 61 H Creatinine 2.6 H Glucose 146 H POC Glucose 156 H Lactic Acid Calcium Phosphorus AST Total Creatine Kinase Troponin T HDL Cholesterol Arterial Blood Glucose Arterial Blood Ionized Calcium Urine WBC (Auto) Urine Creatinine 09/27/20 09/27/20 09/27/20 03:18 04:40 04:40 WBC 13.8 H RBC Hgb Hct MCV RDW 15.9 H Plt Count 123 L Lymph % (Auto) 7.8 L Mcpherson % (Auto) 10.2 H Lymph # (Auto) 1.1 L Mcpherson # (Auto) 1.4 H Seg Neutrophils % 81.5 H Seg Neuts % (Manual) Lymphocytes % (Manual) Seg Neutrophils # 11.2 H PT INR ABG pH POC ABG pCO2 POC ABG pO2 70.0 L ABG pO2 ABG HCO3 ABG O2 Saturation ABG Base Excess ABG Oxyhemoglobin ABG Sodium 160.6 H ABG Potassium ABG Chloride 130.0 H ABG Glucose 139 H Sodium 162 H* Potassium Chloride 128.9 H Carbon Dioxide BUN 63 H Creatinine 2.6 H Glucose 128 H POC Glucose Lactic Acid Calcium 8.3 L Phosphorus AST Total Creatine Kinase Troponin T HDL Cholesterol Arterial Blood Glucose 139 H Arterial Blood Ionized Calcium Urine WBC (Auto) Urine Creatinine 09/27/20 09/27/20 09/27/20 05:55 10:15 11:33 WBC RBC Hgb Hct MCV RDW Plt Count Lymph % (Auto) Mcpherson % (Auto) Lymph # (Auto) Mcpherson # (Auto) Seg Neutrophils % Seg Neuts % (Manual) Lymphocytes % (Manual) Seg Neutrophils # PT INR ABG pH POC ABG pCO2 POC ABG pO2 ABG pO2 ABG HCO3 ABG O2 Saturation ABG Base Excess ABG Oxyhemoglobin ABG Sodium ABG Potassium ABG Chloride ABG Glucose Sodium 164 H* Potassium 3.5 L Chloride 131.3 H Carbon Dioxide BUN 63 H Creatinine 2.7 H Glucose 147 H POC Glucose 116 H 131 H Lactic Acid Calcium Phosphorus AST Total Creatine Kinase Troponin T HDL Cholesterol Arterial Blood Glucose Arterial Blood Ionized Calcium Urine WBC (Auto) Urine Creatinine 09/27/20 09/28/20 09/28/20 17:21 00:10 03:20 WBC RBC Hgb Hct MCV RDW Plt Count Lymph % (Auto) Mcpherson % (Auto) Lymph # (Auto) Mcpherson # (Auto) Seg Neutrophils % Seg Neuts % (Manual) Lymphocytes % (Manual) Seg Neutrophils # PT INR ABG pH POC ABG pCO2 30.0 L POC ABG pO2 72.7 L ABG pO2 ABG HCO3 ABG O2 Saturation ABG Base Excess ABG Oxyhemoglobin ABG Sodium 159.8 H ABG Potassium ABG Chloride 131.0 H ABG Glucose 156 H Sodium Potassium Chloride Carbon Dioxide BUN Creatinine Glucose POC Glucose 151 H 125 H Lactic Acid Calcium Phosphorus AST Total Creatine Kinase Troponin T HDL Cholesterol Arterial Blood Glucose 156 H Arterial Blood Ionized Calcium Urine WBC (Auto) Urine Creatinine 09/28/20 09/28/20 09/28/20 04:29 04:29 05:16 WBC 16.7 H RBC Hgb Hct MCV RDW 16.4 H Plt Count 123 L Lymph % (Auto) 6.6 L Mcpherson % (Auto) Lymph # (Auto) 1.1 L Mcpherson # (Auto) 1.1 H Seg Neutrophils % 86.5 H Seg Neuts % (Manual) Lymphocytes % (Manual) Seg Neutrophils # 14.4 H PT INR ABG pH POC ABG pCO2 POC ABG pO2 ABG pO2 ABG HCO3 ABG O2 Saturation ABG Base Excess ABG Oxyhemoglobin ABG Sodium ABG Potassium ABG Chloride ABG Glucose Sodium 162 H* Potassium Chloride 128.7 H Carbon Dioxide 21 L BUN 73 H Creatinine 2.8 H Glucose 166 H POC Glucose 135 H Lactic Acid Calcium Phosphorus AST Total Creatine Kinase Troponin T HDL Cholesterol Arterial Blood Glucose Arterial Blood Ionized Calcium Urine WBC (Auto) Urine Creatinine 09/28/20 09/28/20 09/28/20 12:01 12:51 17:43 WBC RBC Hgb Hct MCV RDW Plt Count Lymph % (Auto) Mcpherson % (Auto) Lymph # (Auto) Mcpherson # (Auto) Seg Neutrophils % Seg Neuts % (Manual) Lymphocytes % (Manual) Seg Neutrophils # PT INR ABG pH POC ABG pCO2 POC ABG pO2 ABG pO2 ABG HCO3 ABG O2 Saturation ABG Base Excess ABG Oxyhemoglobin ABG Sodium ABG Potassium ABG Chloride ABG Glucose Sodium 161 H* Potassium Chloride 129.8 H Carbon Dioxide 20 L BUN 80 H Creatinine 2.9 H Glucose 139 H POC Glucose 115 H 119 H Lactic Acid Calcium 8.3 L Phosphorus AST Total Creatine Kinase Troponin T HDL Cholesterol Arterial Blood Glucose Arterial Blood Ionized Calcium Urine WBC (Auto) Urine Creatinine 09/28/20 09/29/20 09/29/20 23:26 00:50 05:13 WBC RBC Hgb Hct MCV RDW Plt Count Lymph % (Auto) Mcpherson % (Auto) Lymph # (Auto) Mcpherson # (Auto) Seg Neutrophils % Seg Neuts % (Manual) Lymphocytes % (Manual) Seg Neutrophils # PT INR ABG pH POC ABG pCO2 POC ABG pO2 ABG pO2 ABG HCO3 ABG O2 Saturation ABG Base Excess ABG Oxyhemoglobin ABG Sodium ABG Potassium ABG Chloride ABG Glucose Sodium 164 H* Potassium Chloride 128.9 H Carbon Dioxide BUN 84 H Creatinine 3.1 H Glucose 125 H POC Glucose 121 H 116 H Lactic Acid Calcium Phosphorus AST Total Creatine Kinase Troponin T HDL Cholesterol Arterial Blood Glucose Arterial Blood Ionized Calcium Urine WBC (Auto) Urine Creatinine 09/29/20 09/29/20 09/29/20 07:24 07:24 11:25 WBC 17.2 H RBC Hgb 11.5 L Hct 35.1 L MCV RDW 16.0 H Plt Count 114 L Lymph % (Auto) Mcpherson % (Auto) Lymph # (Auto) Mcpherson # (Auto) Seg Neutrophils % Seg Neuts % (Manual) Lymphocytes % (Manual) Seg Neutrophils # PT INR ABG pH POC ABG pCO2 POC ABG pO2 ABG pO2 ABG HCO3 ABG O2 Saturation ABG Base Excess ABG Oxyhemoglobin ABG Sodium ABG Potassium ABG Chloride ABG Glucose Sodium 167 H* Potassium Chloride 133.5 H Carbon Dioxide BUN 95 H Creatinine 3.1 H Glucose 157 H POC Glucose 118 H Lactic Acid Calcium Phosphorus AST Total Creatine Kinase Troponin T HDL Cholesterol Arterial Blood Glucose Arterial Blood Ionized Calcium Urine WBC (Auto) Urine Creatinine 09/29/20 12:52 WBC RBC Hgb Hct MCV RDW Plt Count Lymph % (Auto) Mcpherson % (Auto) Lymph # (Auto) Mcpherson # (Auto) Seg Neutrophils % Seg Neuts % (Manual) Lymphocytes % (Manual) Seg Neutrophils # PT INR ABG pH POC ABG pCO2 POC ABG pO2 ABG pO2 ABG HCO3 ABG O2 Saturation ABG Base Excess ABG Oxyhemoglobin ABG Sodium ABG Potassium ABG Chloride ABG Glucose Sodium 167 H* Potassium Chloride 133.3 H Carbon Dioxide BUN 93 H Creatinine 3.0 H Glucose 130 H POC Glucose Lactic Acid Calcium Phosphorus AST Total Creatine Kinase Troponin T HDL Cholesterol Arterial Blood Glucose Arterial Blood Ionized Calcium Urine WBC (Auto) Urine Creatinine Chest x-ray: report reviewed, image reviewed
[2020-09-29] MEDS ORDERED: VANCOMYCIN 2,000 MG in SODIUM CHLORIDE 0.9% 500 ML 500 ML IV ONE (18:00)
--- NOTE | 2020-09-29 19:24 | Progress Note ---
Assessment and Plan Assessment and plan: This is a 50-year-old male with heart failure and hypertension who presents to the emergency department on 09/21 with cardiac arrest after syncopal episode about 45 minutes prior to arrival to the emergency department. Upon arrival to the emergency department patient was found to be hypotensive and subsequently started on pressors with significant improvement in his blood pressure. Work-up in the emergency department reveals lactic acidosis, initial troponin within normal limits however subsequent troponins were elevated, no obvious ischemic changes on EKG, UDS positive for marijuana, urinalysis significant for urinary tract infection, BUN/creatinine slightly elevated 26/21. CXR showed severe ca rdiomegaly with mild interstitial pulmonary edema. Patient was admitted to the hospital service with consults to CCM, cardiology and nephrology s/p cardiac arrest, UTI, JAMEY, lactic acidosis and hypotension. MRI reviewed concerning for anoxic encephalopathy -CCM, cardiology, nephrology consulted, appreciate recommendations -s/p vasopressor support with Levophed, phenyl epinephrine, epinephrine -COVID 19 pcr (-) -Fentayl gtt -TF -09/20 CXR shows cardiomegaly -09/21 echocardiogram shows severely dilated left ventricle, the ventricle systolic function severely decreased, borderline concentric left ventricle hypertrophy, severe global hypokinesis of the left ventricle, LVEF 10 to 15%, mild MR, trace TR, RVSP is normal at 12 mmHg, trace pericardial effusion. -Accu-Cheks every 6 hours, SSI -Renal ultrasound pending -09/21 FENa calculated at 3.14 indicating ATN -09/21 CT head shows motion degradation of the image quality despite repeat imaging. However, there appears to be mild cerebral white matter disease as described without CT evidence of acute intracranial hemorrhage. -09/23 CT head shows loss of reyna-white differentiation diffusely likely due to diffuse cerebral edema, interval decrease in ventricular size size diffusely likely due to compression however no herniation identified, suspect developing infarct in the right occipital region without hemorrhage. Evaluation limited by artifact -09/23 MRI brain without contrast pending -09/23 MRA/MRV head without contrast pending -09/23 Bilateral carotid ultrasound pending -Hemoglobin A1c, hepatic panel pending -Trend CBC, BMP 09/22: Patient was started on a fentanyl drip and propofol drip was increased. At the time of my examination patient is on CMV tidal and 450, rate 20, PEEP 6 and FiO2 25%. Patient had a T-max of 101.9 overnight. Today we removed Park catheter and femoral CVL. Plan to obtain PICC/PIV. Started TF today. 09/23: CT head obtained yesterday shows diffuse cerebral edema and a new suspected developing infarct in the right occipital region. Patient has worsening renal function today and hyperphosphatemia. The time of my examination patient was on CMV tidal 450, rate 20, PEEP 625% FiO2 and sedated on fentanyl at 2 mcg. CCM to update family on the findings. CVA work-up ordered. Renal function worsened today. 09/24: Patient has hyponatremia, hypochloremia, metabolic acidosis, slightly improved renal function. CCM discussion with family today regarding prognosis. Remains sedated on fentanyl CMV TV 450, R 20, PEEP 6, FiO2 25%. Park was replaced for retention. 09/25: Mr. Avelar unfortunately remains unresponsive no pupillary reflex appreciated. Still with fever. Start empiric antibiotics and obtain cultures. Although fever could be central. Continue ventilatory support. MRI is concerning for anoxic encephalopathy with global edema. Patient with severe hypernatremia. Will obtain neurosurgery evaluation and also ID evaluation. Free water has been started by nephrology. Cardiology input appreciated. 09/26. No indication for head CT at this time as renal is improving per allergy and immunology specialist. ID input appreciated likely underlying sepsis. Antibiotics as recommended source felt to be secondary to UTI as chest x-ray is without evidence of consolidation. Repeat chest x-ray and urine analysis is pending work cultures are being followed. MRSA PCR is also pending. Patient not on vancomycin and cefepime renally adjusted. I had extensive discussion with the daughter and the father yesterday. Later in the day the patient was made a DNR. Advance care planning time 35 minutes 09/27: Antibiotics changes per ID. Vancomycin discontinued started on linezolid. Continue current management. Patient unfortunately still with profound encephalopathy. Monitor cultures. 09/28: Worsening Hypernatremia 161, Very poor prognosis, Pt with persistent hypernatremia, per neursurgery note no ICP, cont gentle D5W, can be increased by ICU team if needed PER Nephrogy Continue free water 300 ml via orogastric tube q 4 hrs for hypernatremia. Obtain NEUROLOGY EVAL Family made aware of clinical status EEG and Neurology consultation for prognostication 5/14: Worsening sodium level, Nephrology monitoring. fluid adjusted by Nephrology. Patient off sedation, fever persists despite antibitotics, awaiting family decision on hospice. Nurology evaluating S/p cardiac arrest Acute hypoxic respiratory failure Acute toxic and anoxic metabolic encephalopathy Acute kidney injury with underlying ATN Sepsis Cardiomyopathy left ejection fraction of 10 to 15% Acute cystitis Leukocytosis Hypernatremia- Persistent Coagulopathic Transaminitis likely secondary to sepsis Hyperchloremia Metabolic acidosis Lactic acidosis Hypertension Prognosis is poor GI/DVT prophylaxis: PPI, heparin subcu, SCDs to bilateral lower extremities while in bed Disposition: ICU The high probability of a clinically significant, sudden or life threatening deterioration of the [multi] system(s) required my full and direct attention, intervention and personal management. The aggregate critical care time was [35] minutes. This time is in addition to time spent performing reported procedures but includes the following: [x] Data Review and interpretation [x] Patient assessment and monitoring of vital signs [x] Documentation [x] Medication orders and management History Interval history: Patient seen and examined nonresponsive, remains on the vent Hospitalist Physical - Physical exam Narrative exam: General appearance: Present: other (Unresponsive, on the vent) - EENT Eyes: Absent: PERRL ENT: clear oral mucosa - Neck Neck: Absent: masses or JVD, cervical LAD - Respiratory Respiratory effort: normal Respiratory: bilateral: CTA - Cardiovascular Rhythm: regular Heart Sounds: Present: S1 & S2. Tachycardia absent: systolic murmur, diastolic murmur - Extremities Extremities: no ischemia, pulses intact, pulses symmetrical, No edema, normal color Peripheral Pulses: within normal limits - Abdominal General gastrointestinal: soft, non-tender, non-distended, normal bowel sounds - Integumentary Integumentary: Present: warm, dry - Neurologic Neurologic: other (no response to painful stimuli, no cough/gag reflex) - Allied Health Allied health notes reviewed: nursing, RT - Constitutional Vitals: Temp Pulse Resp BP Pulse Ox 99.5 F 76 22 103/62 97 09/29/20 16:00 09/29/20 18:00 09/29/20 18:00 09/29/20 18:00 09/29/20 18:00 General appearance: Present: other (Unresponsive, on the vent) HEART Score - HEART Score Troponin: Troponin T 1.880 ng/mL (0.00-0.029) H* D 09/21/20 04:34 Results - Labs CBC & Chem 7: 09/29/20 07:24 09/30/20 04:40 Labs: Laboratory Last Values WBC 17.2 K/mm3 (4.5-11.0) H 09/29/20 07:24 RBC 3.80 M/mm3 (3.65-5.03) 09/29/20 07:24 Hgb 11.5 gm/dl (11.8-15.2) L 09/29/20 07:24 Hct 35.1 % (35.5-45.6) L 09/29/20 07:24 MCV 92 fl (84-94) 09/29/20 07:24 MCH 30 pg (28-32) 09/29/20 07:24 MCHC 33 % (32-34) 09/29/20 07:24 RDW 16.0 % (13.2-15.2) H 09/29/20 07:24 Plt Count 114 K/mm3 (140-440) L 09/29/20 07:24 Lymph % (Auto) 6.6 % (13.4-35.0) L 09/28/20 04:29 Ray % (Auto) 6.5 % (0.0-7.3) 09/28/20 04:29 Eos % (Auto) 0.1 % (0.0-4.3) 09/28/20 04:29 Baso % (Auto) 0.3 % (0.0-1.8) 09/28/20 04:29 Lymph # (Auto) 1.1 K/mm3 (1.2-5.4) L 09/28/20 04:29 Ray # (Auto) 1.1 K/mm3 (0.0-0.8) H 09/28/20 04:29 Eos # (Auto) 0.0 K/mm3 (0.0-0.4) 09/28/20 04:29 Baso # (Auto) 0.0 K/mm3 (0.0-0.1) 09/28/20 04:29 Add Manual Diff Complete 09/20/20 23:02 Total Counted 100 09/20/20 23:02 Seg Neutrophils % 86.5 % (40.0-70.0) H 09/28/20 04:29 Seg Neuts % (Manual) 34.0 % (40.0-70.0) L 09/20/20 23:02 Lymphocytes % (Manual) 57.0 % (13.4-35.0) H 09/20/20 23:02 Monocytes % (Manual) 6.0 % (0.0-7.3) 09/20/20 23:02 Eosinophils % (Manual) 2.0 % (0.0-4.3) 09/20/20 23:02 Basophils % (Manual) 1.0 % (0.0-1.8) 09/20/20 23:02 Nucleated RBC % Not Reportable 09/20/20 23:02 Seg Neutrophils # 14.4 K/mm3 (1.8-7.7) H 09/28/20 04:29 Seg Neutrophils # Man 1.9 K/mm3 (1.8-7.7) 09/20/20 23:02 Band Neutrophils # 0.0 K/mm3 09/20/20 23:02 Lymphocytes # (Manual) 3.2 K/mm3 (1.2-5.4) 09/20/20 23:02 Abs React Lymphs (Man) 0.0 K/mm3 09/20/20 23:02 Monocytes # (Manual) 0.3 K/mm3 (0.0-0.8) 09/20/20 23:02 Eosinophils # (Manual) 0.1 K/mm3 (0.0-0.4) 09/20/20 23:02 Basophils # (Manual) 0.1 K/mm3 (0.0-0.1) 09/20/20 23:02 Metamyelocytes # 0.0 K/mm3 09/20/20 23:02 Myelocytes # 0.0 K/mm3 09/20/20 23:02 Promyelocytes # 0.0 K/mm3 09/20/20 23:02 Blast Cells # 0.0 K/mm3 09/20/20 23:02 WBC Morphology Not Reportable 09/20/20 23:02 Hypersegmented Neuts Not Reportable 09/20/20 23:02 Hyposegmented Neuts Not Reportable 09/20/20 23:02 Hypogranular Neuts Not Reportable 09/20/20 23:02 Smudge Cells Not Reportable 09/20/20 23:02 Toxic Granulation Not Reportable 09/20/20 23:02 Toxic Vacuolation Not Reportable 09/20/20 23:02 Dohle Bodies Not Reportable 09/20/20 23:02 Pelger-Huet Anomaly Not Reportable 09/20/20 23:02 Santosh Rods Not Reportable 09/20/20 23:02 Platelet Estimate Not Reportable 09/20/20 23:02 Clumped Platelets Not Reportable 09/20/20 23:02 Plt Clumps, EDTA Not Reportable 09/20/20 23:02 Large Platelets Not Reportable 09/20/20 23:02 Giant Platelets Not Reportable 09/20/20 23:02 Platelet Satelliting Not Reportable 09/20/20 23:02 Plt Morphology Comment Not Reportable 09/20/20 23:02 RBC Morphology Normal 09/20/20 23:02 Dimorphic RBCs Not Reportable 09/20/20 23:02 Polychromasia Not Reportable 09/20/20 23:02 Hypochromasia Not Reportable 09/20/20 23:02 Poikilocytosis Not Reportable 09/20/20 23:02 Anisocytosis Not Reportable 09/20/20 23:02 Microcytosis Not Reportable 09/20/20 23:02 Macrocytosis Not Reportable 09/20/20 23:02 Spherocytes Not Reportable 09/20/20 23:02 Pappenheimer Bodies Not Reportable 09/20/20 23:02 Sickle Cells Not Reportable 09/20/20 23:02 Target Cells Not Reportable 09/20/20 23:02 Tear Drop Cells Not Reportable 09/20/20 23:02 Ovalocytes Not Reportable 09/20/20 23:02 Helmet Cells Not Reportable 09/20/20 23:02 Zurita-Arboles Bodies Not Reportable 09/20/20 23:02 Hannibal Rings Not Reportable 09/20/20 23:02 Melly Cells Not Reportable 09/20/20 23:02 Bite Cells Not Reportable 09/20/20 23:02 Crenated Cell Not Reportable 09/20/20 23:02 Elliptocytes Not Reportable 09/20/20 23:02 Acanthocytes (Spur) Not Reportable 09/20/20 23:02 Rouleaux Not Reportable 09/20/20 23:02 Hemoglobin C Crystals Not Reportable 09/20/20 23:02 Schistocytes Not Reportable 09/20/20 23:02 Malaria parasites Not Reportable 09/20/20 23:02 Eduardo Bodies Not Reportable 09/20/20 23:02 Hem Pathologist Commnt No 09/20/20 23:02 PT 15.5 Sec. (12.2-14.9) H 09/22/20 08:26 INR 1.25 (0.87-1.13) H 09/22/20 08:26 APTT 30.6 Sec. (24.2-36.6) 09/21/20 10:08 ABG pH 7.439 (7.320-7.450) 09/28/20 03:20 POC ABG pCO2 30.0 mmHg (32.0-48.0) L 09/28/20 03:20 ABG pCO2 40.5 mm Hg 09/21/20 02:15 POC ABG pO2 72.7 mmHg (83-108) L 09/28/20 03:20 ABG pO2 244.1 mm Hg (80.0-90.0) H 09/21/20 02:15 POC ABG HCO3 19.9 09/28/20 03:20 ABG HCO3 17.7 mmol/L (20.0-26.0) L 09/21/20 02:15 ABG O2 Saturation 95.7 (0-100) 09/28/20 03:20 ABG O2 Content 24.2 (0.0-44) 09/21/20 02:15 POC ABG Base Excess -3.2 09/28/20 03:20 ABG Base Excess -8.8 mmol/L (-2.0-3.0) L 09/21/20 02:15 ABG Hemoglobin 13.0 (12.0-17.5) 09/28/20 03:20 ABG Oxyhemoglobin 94.8 (94-98) 09/28/20 03:20 ABG Carboxyhemoglobin 1.3 % (0.0-5.0) 09/21/20 02:15 ABG Methemoglobin 0.3 (0.0-1.5) 09/28/20 03:20 ABG Sodium 159.8 mmol/L (136.0-145.0) H 09/28/20 03:20 ABG Potassium 3.5 mmol/L (3.40-4.50) 09/28/20 03:20 ABG Chloride 131.0 mmol/L (98-107) H 09/28/20 03:20 ABG Glucose 156 mg/dL (65-95) H 09/28/20 03:20 Oxyhemoglobin 97.4 % (95.0-99.0) 09/21/20 02:15 Carboxyhemoglobin 0.6 (0.5-1.5) 09/28/20 03:20 FiO2 21 % 09/21/20 02:15 FiO2 % 35.0 09/28/20 03:20 Sodium 167 mmol/L (137-145) H* 09/29/20 12:52 Potassium 3.8 mmol/L (3.6-5.0) 09/29/20 12:52 Chloride 133.3 mmol/L (98-107) H 09/29/20 12:52 Carbon Dioxide 22 mmol/L (22-30) 09/29/20 12:52 Anion Gap 16 mmol/L 09/29/20 12:52 BUN 93 mg/dL (9-20) H 09/29/20 12:52 Creatinine 3.0 mg/dL (0.8-1.3) H 09/29/20 12:52 Estimated GFR 27 ml/min 09/29/20 12:52 BUN/Creatinine Ratio 31 % 09/29/20 12:52 Glucose 130 mg/dL (75-100) H 09/29/20 12:52 POC Glucose 118 mg/dL (70-105) H 09/29/20 11:25 Lactic Acid 1.00 mmol/L (0.7-2.0) 09/24/20 04:00 Calcium 8.7 mg/dL (8.4-10.2) 09/29/20 12:52 Phosphorus 2.50 mg/dL (2.5-4.5) D 09/27/20 04:40 Total Bilirubin 0.30 mg/dL (0.1-1.2) 09/20/20 23:02 AST 59 units/L (5-40) H 09/20/20 23:02 ALT 30 units/L (7-56) 09/20/20 23:02 Alkaline Phosphatase 88 units/L (35-129) 09/20/20 23:02 Total Creatine Kinase 3606 units/L (55-170) H 09/21/20 15:54 Troponin T 1.880 ng/mL (0.00-0.029) H* D 09/21/20 04:34 Total Protein 7.0 g/dL (6.3-8.2) 09/20/20 23:02 Albumin 4.1 g/dL (3.9-5) 09/20/20 23:02 Albumin/Globulin Ratio 1.4 % 09/20/20 23:02 Triglycerides 43 mg/dL (2-149) 09/21/20 02:01 Cholesterol 152 mg/dL (50-199) 09/21/20 02:01 LDL Cholesterol Direct 92 mg/dL (50-130) 09/21/20 02:01 HDL Cholesterol 60 mg/dL (40-59) H 09/21/20 02:01 Cholesterol/HDL Ratio 2.53 % 09/21/20 02:01 Arterial Blood Glucose 156 mg/dL (65-95) H 09/28/20 03:20 Arterial Blood Ionized Calcium 5.0 mg/dL (4.6-5.3) 09/28/20 03:20 Urine Color Yellow (Yellow) 09/26/20 13:38 Urine Turbidity Turbid (Clear) 09/26/20 13:38 Urine pH 5.0 (5.0-7.0) 09/26/20 13:38 Ur Specific [place] 1.018 (1.003-1.030) 09/26/20 13:38 Urine Protein 100 mg/dl mg/dL (Negative) 09/26/20 13:38 Urine Glucose (UA) Neg mg/dL (Negative) 09/26/20 13:38 Urine Ketones Neg mg/dL (Negative) 09/26/20 13:38 Urine Blood Mod (Negative) 09/26/20 13:38 Urine Nitrite Neg (Negative) 09/26/20 13:38 Urine Bilirubin Neg (Negative) 09/26/20 13:38 Urine Urobilinogen < 2.0 mg/dL (<2.0) 09/26/20 13:38 Ur Leukocyte Esterase Neg (Negative) 09/26/20 13:38 Urine WBC (Auto) 8.0 /HPF (0.0-6.0) H 09/26/20 13:38 Urine RBC (Auto) 10.0 /HPF (0.0-6.0) 09/26/20 13:38 U Epithel Cells (Auto) 2.0 /HPF (0-13.0) 09/26/20 13:38 Urine Bacteria (Auto) 2+ /HPF (Negative) 09/21/20 14:27 Uric Acid Crystals 3+ 09/26/20 13:38 Urine Mucus 1+ /HPF 09/26/20 13:38 Urine Yeast (Budding) 2+ /HPF 09/20/20 23:35 Urine Sperm Few /HPF (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) 09/26/20 13:38 Urine Creatinine 60.4 mg/dL (0.1-20.0) H 09/21/20 14:27 Urine Sodium 108 mmol/L 09/21/20 14:27 Urine Urea Nitrogen 305 09/21/20 14:27 Nasal Screen MRSA (PCR) Positive (Negative) 09/25/20 17:55 Random Vancomycin 4 ug/mL (0-40.0) 09/29/20 12:52 Urine Opiates Screen Presumptive negative 09/20/20 Unknown Urine Methadone Screen Presumptive negative 09/20/20 Unknown Ur Barbiturates Screen Presumptive negative 09/20/20 Unknown Ur Phencyclidine Scrn Presumptive negative 09/20/20 Unknown Ur Amphetamines Screen Presumptive negative 09/20/20 Unknown U Benzodiazepines Scrn Presumptive negative 09/20/20 Unknown Urine Cocaine Screen Presumptive negative 09/20/20 Unknown U Marijuana (THC) Screen Presumptive positive 09/20/20 Unknown Drugs of Abuse Note Disclamer 09/20/20 Unknown Coronavirus (PCR) Negative (Negative) 09/21/20 10:13 Microbiology: Microbiology 09/25/20 14:50 Peripheral/Venous Blood Culture - Preliminary NO GROWTH AFTER 4 DAYS 09/25/20 14:50 Peripheral/Venous Blood Culture - Preliminary NO GROWTH AFTER 4 DAYS 09/26/20 16:14 Tracheal Aspirate Sputum Culture - Final Methicillin Resist S. Aureus 09/25/20 16:57 Tracheal Aspirate Sputum Culture - Final Methicillin Resist S. Aureus Park/IV: Voiding Method Indwelling Catheter Active Medications - Current Medications Current Medications: Generic Name Dose Route Start Last Admin Trade Name Freq PRN Reason Stop Dose Admin Acetaminophen 650 mg 09/21/20 15:51 09/29/20 04:00 Acetaminophen 325 Mg/10.15 Ml Oral Liqd Unit Dose FEEDTUBE 650 mg Q6H PRN Administration Pain, Mild (1-3) Lipase/Protease/Amylase 1 each 09/25/20 14:22 Lipase 10,500/Protease 25,000/Amylase 43,750 (Units) Dr Cap FEEDTUBE PRN PRN For Clogged Feeding Tube Aspirin 325 mg 09/21/20 16:00 09/29/20 10:20 Aspirin 325 Mg Tab PO 325 mg QDAY PATSY Administration Atorvastatin Calcium 40 mg 09/23/20 22:00 09/28/20 21:52 Atorvastatin 40 Mg Tab PO 40 mg QHS PATSY Administration Famotidine 20 mg 09/25/20 10:00 09/29/20 10:20 Famotidine 20 Mg Tab PO 20 mg DAILY PATSY Administration Heparin Sodium (Porcine) 5,000 unit 09/21/20 22:00 09/29/20 10:20 Heparin 5,000 Unit/1 Ml Vial SUB-Q 5,000 unit Q12HR PATSY Administration Hydralazine HCl 5 mg 09/23/20 14:00 09/29/20 18:04 Hydralazine 20 Mg/1 Ml Inj IV Not Given Q4HR PATSY Hydrophilic Ointment 1 applic 09/20/20 22:59 Lip Therapy Vaseline TP Q2HR PRN Dry Lips Norepinephrine 4 mg in 250 mls @ 7.5 mls/hr 09/21/20 05:00 Levophed Drip 4 Mg/Ns 250 Ml IV TITR PATSY Protocol 2 MCG/MIN Fentanyl Citrate 2,000 mcg in 100 mls @ 5.105 mls/hr 09/22/20 11:30 09/25/20 18:17 Fentanyl Drip Premix IV 0 mcg/kg/hr TITR PATSY 0 mls/hr Titration Protocol 1 MCG/KG/HR Vancomycin HCl 2,000 mg/ 540 mls @ 250 mls/hr 09/29/20 18:00 Sodium Chloride IV 09/29/20 20:09 ONCE ONE Dextrose 1,000 mls @ 150 mls/hr 09/29/20 14:00 09/29/20 14:06 D5w IV 150 mls/hr DIRECT PATSY Administration Metoprolol Tartrate 50 mg 09/27/20 18:00 09/29/20 18:04 Metoprolol Tartrate 50 Mg Tab PO Not Given Q6HR PATSY Multi-Ingred Cream/Lotion/Oil/Oint 1 applic 09/20/20 22:59 Mineral Oil/Petrolatum, White Ophth Oint 3.5 Gm OU Q4HR PRN Dry Eye(s) Ondansetron HCl 4 mg 09/21/20 01:24 Ondansetron 4 Mg/2 Ml Inj IV Q8H PRN Nausea And Vomiting Simple Syrup 15 ml 09/25/20 14:22 Simple Syrup 15 Ml FEEDTUBE PRN PRN Hypoglycemia Simple Syrup 30 ml 09/25/20 14:22 Simple Syrup 15 Ml FEEDTUBE PRN PRN Hypoglycemia Sodium Bicarbonate 325 mg 09/25/20 14:22 Sodium Bicarbonate 325 Mg Tab FEEDTUBE PRN PRN For Clogged Feeding Tube Sodium Chloride 10 ml 09/21/20 10:00 09/29/20 10:21 Sodium Chloride 0.9% 10 Ml Flush Syringe IV 10 ml BID PATSY Administration Sodium Chloride 10 ml 09/21/20 01:24 09/24/20 18:21 Sodium Chloride 0.9% 10 Ml Flush Syringe IV 10 ml PRN PRN Administration LINE FLUSH Nutrition/Malnutrition Assess - Dietary Evaluation Nutrition/Malnutrition Findings: Nutrition Notes Start: 09/21/20 08:17 Freq: Status: Active Protocol: Document 09/29/20 12:44 AL (Rec: 09/29/20 12:50 AL [id number]) Co-Sign 09/29/20 12:44 CW Nutrition Notes Initial or Follow up Reassessment Current Diagnosis Acute Kidney Injury, Hypertension,Heart Failure, Respiratory Failure Other Pertinent Diagnosis s/p cardiopulmonary arrest, UTI, anoxic encephalopathy with global edema Current Diet TF - Vital AF 1.2 at 65ml/hr Labs/Tests Na 167 BUN 95 Cr 3.1 Pertinent Medications D5W at 100 ml/hr Height 6 ft Weight 102.1 kg [place] Body Weight (kg) 80.90 BMI 30.5 Weight Status Obese Subjective/Other Information F/U for TF tolerance. Pt intubated. Per nephrology note , keep flush at 300 ml q4h and do not increase. Pt is having excess output per RN. Per case management social worker note, pt be transitioned to hospice or withdrawal of care. TF was not running at goal at time of visit. Per RN, bottle ran out. Will be restarted soon Percent of energy/protein needs met: 100%/72% Burn Absent Trauma Absent GI Symptoms None Current % PO Negligible Minimum of two criteria No physical signs of malnutrition #1 Nutrition Diagnosis Inadequate oral intake Diagnosis Progress(for reassessment Continues documentation) Is patient on ventilator? Yes Is Patient Ambulatory and/or Out of Bed No REE-(Cowley-St Jeor-confined to bed) 2318.184 Kcal/Kg value to use for calculation 18 Approximate Energy Requirements Using 1838 kcal/Kg Calculation Used for Recommendations Kcal/kg Additional Notes Pro needs >2g/kg IBW: >162g/ day Fluid needs 1ml/kcal Nutrition Intervention Change Diet Order: Continue TF Nutrition Support: Vital AF 1.2 at 65ml/hr with 300ml water flush q4h until hypernatremia resolves. Once hypernatremia resolves, continue free water flush of 100 ml q4h. [ End ] [ End ] Kcal 1,872 Protein (gm) 117 Fluid (mL) 1,265 Goal #1 TF tolerance Goal #2 TF to meet at least 75% of estimated energy and protein needs. Anticipated Discharge Needs: Unable to determine at the time. Follow-Up By: 10/03/20 Additional Comments F/U: TF tolerance and Na labs and water flushes.
[2020-09-29 21:43] LABS: Calcium 8.3 mg/dL (8.4-10.2)
[2020-09-30 01:40] LABS: Calcium 8.5 mg/dL (8.4-10.2)
[2020-09-30] MEDS: hydrALAZINE 20 MG/1 ML INJ IV SCH ×6 (03:21→21:55)
[2020-09-30] MEDS ORDERED: DEXTROSE 50% IN WATER (25GM) 50 ML SYRINGE IV ONE (05:15)
[2020-09-30 05:31] LABS: Calcium 8.1 mg/dL (8.4-10.2)
[2020-09-30] MEDS ORDERED: DEXTROSE 50% IN WATER (25GM) 50 ML SYRINGE IV PRN (05:37)
[2020-09-30] MEDS: DEXTROSE 5% IN WATER 1,000 ML IV SCH ×2 (05:57→13:24)
[2020-09-30] MEDS: METOPROLOL TARTRATE 50 MG TAB PO SCH ×4 (06:55→18:17)
--- NOTE | 2020-09-30 07:08 | Progress Note ---
Assessment and Plan Assessment and plan: This is a 50-year-old male with heart failure and hypertension who presents to the emergency department on 09/21 with cardiac arrest after syncopal episode about 45 minutes prior to arrival to the emergency department. Upon arrival to the emergency department patient was found to be hypotensive and subsequently started on pressors with significant improvement in his blood pressure. Work-up in the emergency department reveals lactic acidosis, initial troponin within normal limits however subsequent troponins were elevated, no obvious ischemic changes on EKG, UDS positive for marijuana, urinalysis significant for urinary tract infection, BUN/creatinine slightly elevated 26/21. CXR showed severe ca rdiomegaly with mild interstitial pulmonary edema. Patient was admitted to the hospital service with consults to CCM, cardiology and nephrology s/p cardiac arrest, UTI, JAMEY, lactic acidosis and hypotension. MRI reviewed concerning for anoxic encephalopathy -CCM, cardiology, nephrology consulted, appreciate recommendations -s/p vasopressor support with Levophed, phenyl epinephrine, epinephrine -COVID 19 pcr (-) -Fentayl gtt -TF -09/20 CXR shows cardiomegaly -09/21 echocardiogram shows severely dilated left ventricle, the ventricle systolic function severely decreased, borderline concentric left ventricle hypertrophy, severe global hypokinesis of the left ventricle, LVEF 10 to 15%, mild MR, trace TR, RVSP is normal at 12 mmHg, trace pericardial effusion. -Accu-Cheks every 6 hours, SSI -Renal ultrasound pending -09/21 FENa calculated at 3.14 indicating ATN -09/21 CT head shows motion degradation of the image quality despite repeat imaging. However, there appears to be mild cerebral white matter disease as described without CT evidence of acute intracranial hemorrhage. -09/23 CT head shows loss of reyna-white differentiation diffusely likely due to diffuse cerebral edema, interval decrease in ventricular size size diffusely likely due to compression however no herniation identified, suspect developing infarct in the right occipital region without hemorrhage. Evaluation limited by artifact -09/23 MRI brain without contrast pending -09/23 MRA/MRV head without contrast pending -09/23 Bilateral carotid ultrasound pending -Hemoglobin A1c, hepatic panel pending -Trend CBC, BMP 09/22: Patient was started on a fentanyl drip and propofol drip was increased. At the time of my examination patient is on CMV tidal and 450, rate 20, PEEP 6 and FiO2 25%. Patient had a T-max of 101.9 overnight. Today we removed Park catheter and femoral CVL. Plan to obtain PICC/PIV. Started TF today. 09/23: CT head obtained yesterday shows diffuse cerebral edema and a new suspected developing infarct in the right occipital region. Patient has worsening renal function today and hyperphosphatemia. The time of my examination patient was on CMV tidal 450, rate 20, PEEP 625% FiO2 and sedated on fentanyl at 2 mcg. CCM to update family on the findings. CVA work-up ordered. Renal function worsened today. 09/24: Patient has hyponatremia, hypochloremia, metabolic acidosis, slightly improved renal function. CCM discussion with family today regarding prognosis. Remains sedated on fentanyl CMV TV 450, R 20, PEEP 6, FiO2 25%. Park was replaced for retention. 09/25: Mr. Avelar unfortunately remains unresponsive no pupillary reflex appreciated. Still with fever. Start empiric antibiotics and obtain cultures. Although fever could be central. Continue ventilatory support. MRI is concerning for anoxic encephalopathy with global edema. Patient with severe hypernatremia. Will obtain neurosurgery evaluation and also ID evaluation. Free water has been started by nephrology. Cardiology input appreciated. 09/26. No indication for head CT at this time as renal is improving per catalyst impregnator. ID input appreciated likely underlying sepsis. Antibiotics as recommended source felt to be secondary to UTI as chest x-ray is without evidence of consolidation. Repeat chest x-ray and urine analysis is pending work cultures are being followed. MRSA PCR is also pending. Patient not on vancomycin and cefepime renally adjusted. I had extensive discussion with the daughter and the father yesterday. Later in the day the patient was made a DNR. Advance care planning time 35 minutes 09/27: Antibiotics changes per ID. Vancomycin discontinued started on linezolid. Continue current management. Patient unfortunately still with profound encephalopathy. Monitor cultures. 09/28: Worsening Hypernatremia 161, Very poor prognosis, Pt with persistent hypernatremia, per neursurgery note no ICP, cont gentle D5W, can be increased by ICU team if needed PER Nephrogy Continue free water 300 ml via orogastric tube q 4 hrs for hypernatremia. Obtain NEUROLOGY EVAL Family made aware of clinical status EEG and Neurology consultation for prognostication 5/14: Worsening sodium level, Nephrology monitoring. fluid adjusted by Nephrology. Patient off sedation, fever persists despite antibitotics, awaiting family decision on hospice. Nurology evaluating 09/30: Despite antibiotics fever still persist. Sodium still elevated despite being on fluid replacement with free water. This all points to central catastrophic event as reflected by neurosurgery. We will continue current management while awaiting family decision. Unfortunate case for young man status. Will check a.m. labs. Will obtain CBC in a.m.. Continue pressure wound prevention techniques per SRGA protocol S/p cardiac arrest Acute hypoxic respiratory failure Acute toxic and anoxic metabolic encephalopathy Acute kidney injury with underlying ATN Sepsis Cardiomyopathy left ejection fraction of 10 to 15% Acute cystitis Leukocytosis Hypernatremia- Persistent Coagulopathic Transaminitis likely secondary to sepsis Hyperchloremia Metabolic acidosis Lactic acidosis Hypertension Prognosis is poor GI/DVT prophylaxis: PPI, heparin subcu, SCDs to bilateral lower extremities while in bed Disposition: ICU The high probability of a clinically significant, sudden or life threatening deterioration of the [multi] system(s) required my full and direct attention, intervention and personal management. The aggregate critical care time was [35] minutes. This time is in addition to time spent performing reported procedures but includes the following: [x] Data Review and interpretation [x] Patient assessment and monitoring of vital signs [x] Documentation [x] Medication orders and management History Interval history: Patient seen and examined nonresponsive, remains on the vent. Still with fever Hospitalist Physical - Physical exam Narrative exam: General appearance: Present: other (Unresponsive, on the vent) - EENT Eyes: Absent: PERRL ENT: clear oral mucosa - Neck Neck: Absent: masses or JVD, cervical LAD - Respiratory Respiratory effort: normal Respiratory: bilateral: CTA - Cardiovascular Rhythm: regular Heart Sounds: Present: S1 & S2. Tachycardia absent: systolic murmur, diastolic murmur - Extremities Extremities: no ischemia, pulses intact, pulses symmetrical, No edema, normal color Peripheral Pulses: within normal limits - Abdominal General gastrointestinal: soft, non-tender, non-distended, normal bowel sounds - Integumentary Integumentary: Present: warm, dry - Neurologic Neurologic: other (no response to painful stimuli, no cough/gag reflex) - Allied Health Allied health notes reviewed: nursing, RT - Constitutional Vitals: Temp Pulse Resp BP Pulse Ox 100.2 F H 76 26 H 123/72 100 09/30/20 03:29 09/30/20 07:00 09/30/20 07:00 09/30/20 07:00 09/30/20 07:00 General appearance: Present: other (Unresponsive, on the vent) HEART Score - HEART Score Troponin: Troponin T 1.880 ng/mL (0.00-0.029) H* D 09/21/20 04:34 Results - Labs CBC & Chem 7: 09/29/20 07:24 09/30/20 04:40 Labs: Laboratory Last Values WBC 17.2 K/mm3 (4.5-11.0) H 09/29/20 07:24 RBC 3.80 M/mm3 (3.65-5.03) 09/29/20 07:24 Hgb 11.5 gm/dl (11.8-15.2) L 09/29/20 07:24 Hct 35.1 % (35.5-45.6) L 09/29/20 07:24 MCV 92 fl (84-94) 09/29/20 07:24 MCH 30 pg (28-32) 09/29/20 07:24 MCHC 33 % (32-34) 09/29/20 07:24 RDW 16.0 % (13.2-15.2) H 09/29/20 07:24 Plt Count 114 K/mm3 (140-440) L 09/29/20 07:24 Lymph % (Auto) 6.6 % (13.4-35.0) L 09/28/20 04:29 [place] % (Auto) 6.5 % (0.0-7.3) 09/28/20 04:29 Eos % (Auto) 0.1 % (0.0-4.3) 09/28/20 04:29 Baso % (Auto) 0.3 % (0.0-1.8) 09/28/20 04:29 Lymph # (Auto) 1.1 K/mm3 (1.2-5.4) L 09/28/20 04:29 [place] # (Auto) 1.1 K/mm3 (0.0-0.8) H 09/28/20 04:29 Eos # (Auto) 0.0 K/mm3 (0.0-0.4) 09/28/20 04:29 Baso # (Auto) 0.0 K/mm3 (0.0-0.1) 09/28/20 04:29 Add Manual Diff Complete 09/20/20 23:02 Total Counted 100 09/20/20 23:02 Seg Neutrophils % 86.5 % (40.0-70.0) H 09/28/20 04:29 Seg Neuts % (Manual) 34.0 % (40.0-70.0) L 09/20/20 23:02 Lymphocytes % (Manual) 57.0 % (13.4-35.0) H 09/20/20 23:02 Monocytes % (Manual) 6.0 % (0.0-7.3) 09/20/20 23:02 Eosinophils % (Manual) 2.0 % (0.0-4.3) 09/20/20 23:02 Basophils % (Manual) 1.0 % (0.0-1.8) 09/20/20 23:02 Nucleated RBC % Not Reportable 09/20/20 23:02 Seg Neutrophils # 14.4 K/mm3 (1.8-7.7) H 09/28/20 04:29 Seg Neutrophils # Man 1.9 K/mm3 (1.8-7.7) 09/20/20 23:02 Band Neutrophils # 0.0 K/mm3 09/20/20 23:02 Lymphocytes # (Manual) 3.2 K/mm3 (1.2-5.4) 09/20/20 23:02 Abs React Lymphs (Man) 0.0 K/mm3 09/20/20 23:02 Monocytes # (Manual) 0.3 K/mm3 (0.0-0.8) 09/20/20 23:02 Eosinophils # (Manual) 0.1 K/mm3 (0.0-0.4) 09/20/20 23:02 Basophils # (Manual) 0.1 K/mm3 (0.0-0.1) 09/20/20 23:02 Metamyelocytes # 0.0 K/mm3 09/20/20 23:02 Myelocytes # 0.0 K/mm3 09/20/20 23:02 Promyelocytes # 0.0 K/mm3 09/20/20 23:02 Blast Cells # 0.0 K/mm3 09/20/20 23:02 WBC Morphology Not Reportable 09/20/20 23:02 Hypersegmented Neuts Not Reportable 09/20/20 23:02 Hyposegmented Neuts Not Reportable 09/20/20 23:02 Hypogranular Neuts Not Reportable 09/20/20 23:02 Smudge Cells Not Reportable 09/20/20 23:02 Toxic Granulation Not Reportable 09/20/20 23:02 Toxic Vacuolation Not Reportable 09/20/20 23:02 Dohle Bodies Not Reportable 09/20/20 23:02 Pelger-Huet Anomaly Not Reportable 09/20/20 23:02 Santosh Rods Not Reportable 09/20/20 23:02 Platelet Estimate Not Reportable 09/20/20 23:02 Clumped Platelets Not Reportable 09/20/20 23:02 Plt Clumps, EDTA Not Reportable 09/20/20 23:02 Large Platelets Not Reportable 09/20/20 23:02 Giant Platelets Not Reportable 09/20/20 23:02 Platelet Satelliting Not Reportable 09/20/20 23:02 Plt Morphology Comment Not Reportable 09/20/20 23:02 RBC Morphology Normal 09/20/20 23:02 Dimorphic RBCs Not Reportable 09/20/20 23:02 Polychromasia Not Reportable 09/20/20 23:02 Hypochromasia Not Reportable 09/20/20 23:02 Poikilocytosis Not Reportable 09/20/20 23:02 Anisocytosis Not Reportable 09/20/20 23:02 Microcytosis Not Reportable 09/20/20 23:02 Macrocytosis Not Reportable 09/20/20 23:02 Spherocytes Not Reportable 09/20/20 23:02 Pappenheimer Bodies Not Reportable 09/20/20 23:02 Sickle Cells Not Reportable 09/20/20 23:02 Target Cells Not Reportable 09/20/20 23:02 Tear Drop Cells Not Reportable 09/20/20 23:02 Ovalocytes Not Reportable 09/20/20 23:02 Helmet Cells Not Reportable 09/20/20 23:02 [place] Bodies Not Reportable 09/20/20 23:02 [place] Rings Not Reportable 09/20/20 23:02 Melly Cells Not Reportable 09/20/20 23:02 Bite Cells Not Reportable 09/20/20 23:02 Crenated Cell Not Reportable 09/20/20 23:02 Elliptocytes Not Reportable 09/20/20 23:02 Acanthocytes (Spur) Not Reportable 09/20/20 23:02 Rouleaux Not Reportable 09/20/20 23:02 Hemoglobin C Crystals Not Reportable 09/20/20 23:02 Schistocytes Not Reportable 09/20/20 23:02 Malaria parasites Not Reportable 09/20/20 23:02 Eduardo Bodies Not Reportable 09/20/20 23:02 Hem Pathologist Commnt No 09/20/20 23:02 PT 15.5 Sec. (12.2-14.9) H 09/22/20 08:26 INR 1.25 (0.87-1.13) H 09/22/20 08:26 APTT 30.6 Sec. (24.2-36.6) 09/21/20 10:08 ABG pH 7.446 (7.320-7.450) 09/30/20 02:59 POC ABG pCO2 28.6 mmHg (32.0-48.0) L 09/30/20 02:59 ABG pCO2 40.5 mm Hg 09/21/20 02:15 POC ABG pO2 70.4 mmHg (83-108) L 09/30/20 02:59 ABG pO2 244.1 mm Hg (80.0-90.0) H 09/21/20 02:15 POC ABG HCO3 19.3 09/30/20 02:59 ABG HCO3 17.7 mmol/L (20.0-26.0) L 09/21/20 02:15 ABG O2 Saturation 94.6 (0-100) 09/30/20 02:59 ABG O2 Content 24.2 (0.0-44) 09/21/20 02:15 POC ABG Base Excess -3.6 09/30/20 02:59 ABG Base Excess -8.8 mmol/L (-2.0-3.0) L 09/21/20 02:15 ABG Hemoglobin 12.9 (12.0-17.5) 09/30/20 02:59 ABG Oxyhemoglobin 93.7 (94-98) L 09/30/20 02:59 ABG Carboxyhemoglobin 1.3 % (0.0-5.0) 09/21/20 02:15 ABG Methemoglobin 0.3 (0.0-1.5) 09/30/20 02:59 ABG Sodium 158.6 mmol/L (136.0-145.0) H 09/30/20 02:59 ABG Potassium 3.3 mmol/L (3.40-4.50) L 09/30/20 02:59 ABG Chloride 127.0 mmol/L (98-107) H 09/30/20 02:59 ABG Glucose 167 mg/dL (65-95) H 09/30/20 02:59 Oxyhemoglobin 97.4 % (95.0-99.0) 09/21/20 02:15 Carboxyhemoglobin 0.7 (0.5-1.5) 09/30/20 02:59 FiO2 21 % 09/21/20 02:15 FiO2 % 35.0 09/30/20 02:59 Sodium 162 mmol/L (137-145) H* 09/30/20 04:40 Potassium 4.0 mmol/L (3.6-5.0) 09/30/20 04:40 Chloride 127.2 mmol/L (98-107) H 09/30/20 04:40 Carbon Dioxide 20 mmol/L (22-30) L 09/30/20 04:40 Anion Gap 19 mmol/L 09/30/20 04:40 BUN 89 mg/dL (9-20) H 09/30/20 04:40 Creatinine 2.8 mg/dL (0.8-1.3) H 09/30/20 04:40 Estimated GFR 29 ml/min 09/30/20 04:40 BUN/Creatinine Ratio 32 % 09/30/20 04:40 Glucose 132 mg/dL (75-100) H 09/30/20 04:40 POC Glucose 117 mg/dL (70-105) H 09/29/20 23:35 Lactic Acid 1.00 mmol/L (0.7-2.0) 09/24/20 04:00 Calcium 8.1 mg/dL (8.4-10.2) L 09/30/20 04:40 Phosphorus 2.50 mg/dL (2.5-4.5) D 09/27/20 04:40 Total Bilirubin 0.30 mg/dL (0.1-1.2) 09/20/20 23:02 AST 59 units/L (5-40) H 09/20/20 23:02 ALT 30 units/L (7-56) 09/20/20 23:02 Alkaline Phosphatase 88 units/L (35-129) 09/20/20 23:02 Total Creatine Kinase 3606 units/L (55-170) H 09/21/20 15:54 Troponin T 1.880 ng/mL (0.00-0.029) H* D 09/21/20 04:34 Total Protein 7.0 g/dL (6.3-8.2) 09/20/20 23:02 Albumin 4.1 g/dL (3.9-5) 09/20/20 23:02 Albumin/Globulin Ratio 1.4 % 09/20/20 23:02 Triglycerides 43 mg/dL (2-149) 09/21/20 02:01 Cholesterol 152 mg/dL (50-199) 09/21/20 02:01 LDL Cholesterol Direct 92 mg/dL (50-130) 09/21/20 02:01 HDL Cholesterol 60 mg/dL (40-59) H 09/21/20 02:01 Cholesterol/HDL Ratio 2.53 % 09/21/20 02:01 Arterial Blood Glucose 167 mg/dL (65-95) H 09/30/20 02:59 Arterial Blood Ionized Calcium 5.0 mg/dL (4.6-5.3) 09/30/20 02:59 Urine Color Yellow (Yellow) 09/26/20 13:38 Urine Turbidity Turbid (Clear) 09/26/20 13:38 Urine pH 5.0 (5.0-7.0) 09/26/20 13:38 Ur Specific [place] 1.018 (1.003-1.030) 09/26/20 13:38 Urine Protein 100 mg/dl mg/dL (Negative) 09/26/20 13:38 Urine Glucose (UA) Neg mg/dL (Negative) 09/26/20 13:38 Urine Ketones Neg mg/dL (Negative) 09/26/20 13:38 Urine Blood Mod (Negative) 09/26/20 13:38 Urine Nitrite Neg (Negative) 09/26/20 13:38 Urine Bilirubin Neg (Negative) 09/26/20 13:38 Urine Urobilinogen < 2.0 mg/dL (<2.0) 09/26/20 13:38 Ur Leukocyte Esterase Neg (Negative) 09/26/20 13:38 Urine WBC (Auto) 8.0 /HPF (0.0-6.0) H 09/26/20 13:38 Urine RBC (Auto) 10.0 /HPF (0.0-6.0) 09/26/20 13:38 U Epithel Cells (Auto) 2.0 /HPF (0-13.0) 09/26/20 13:38 Urine Bacteria (Auto) 2+ /HPF (Negative) 09/21/20 14:27 Uric Acid Crystals 3+ 09/26/20 13:38 Urine Mucus 1+ /HPF 09/26/20 13:38 Urine Yeast (Budding) 2+ /HPF 09/20/20 23:35 Urine Sperm Few /HPF (SERVICE ORDER DISPATCHER) 09/26/20 13:38 Urine Creatinine 60.4 mg/dL (0.1-20.0) H 09/21/20 14:27 Urine Sodium 108 mmol/L 09/21/20 14:27 Urine Urea Nitrogen 305 09/21/20 14:27 Nasal Screen MRSA (PCR) Positive (Negative) 09/25/20 17:55 Random Vancomycin 4 ug/mL (0-40.0) 09/29/20 12:52 Urine Opiates Screen Presumptive negative 09/20/20 Unknown Urine Methadone Screen Presumptive negative 09/20/20 Unknown Ur Barbiturates Screen Presumptive negative 09/20/20 Unknown Ur Phencyclidine Scrn Presumptive negative 09/20/20 Unknown Ur Amphetamines Screen Presumptive negative 09/20/20 Unknown U Benzodiazepines Scrn Presumptive negative 09/20/20 Unknown Urine Cocaine Screen Presumptive negative 09/20/20 Unknown U Marijuana (THC) Screen Presumptive positive 09/20/20 Unknown Drugs of Abuse Note Disclamer 09/20/20 Unknown Coronavirus (PCR) Negative (Negative) 09/21/20 10:13 Microbiology: Microbiology 09/25/20 14:50 Peripheral/Venous Blood Culture - Preliminary NO GROWTH AFTER 4 DAYS 09/25/20 14:50 Peripheral/Venous Blood Culture - Preliminary NO GROWTH AFTER 4 DAYS 09/26/20 16:14 Tracheal Aspirate Sputum Culture - Final Methicillin Resist S. Aureus 09/25/20 16:57 Tracheal Aspirate Sputum Culture - Final Methicillin Resist S. Aureus Park/IV: Voiding Method Indwelling Catheter Active Medications - Current Medications Current Medications: Generic Name Dose Route Start Last Admin Trade Name Freq PRN Reason Stop Dose Admin Acetaminophen 650 mg 09/21/20 15:51 09/29/20 04:00 Acetaminophen 325 Mg/10.15 Ml Oral Liqd Unit Dose FEEDTUBE 650 mg Q6H PRN Administration Pain, Mild (1-3) Lipase/Protease/Amylase 1 each 09/25/20 14:22 Lipase 10,500/Protease 25,000/Amylase 43,750 (Units) Dr Cap FEEDTUBE PRN PRN For Clogged Feeding Tube Aspirin 325 mg 09/21/20 16:00 09/29/20 10:20 Aspirin 325 Mg Tab PO 325 mg QDAY PATSY Administration Atorvastatin Calcium 40 mg 09/23/20 22:00 09/29/20 21:58 Atorvastatin 40 Mg Tab PO 40 mg QHS PATSY Administration Dextrose 0 ml 09/30/20 05:37 09/30/20 05:57 Dextrose 50% In Water (25gm) 50 Ml Syringe IV 50 ml Q30MIN PRN Administration Hypoglycemia Protocol Famotidine 20 mg 09/25/20 10:00 09/29/20 10:20 Famotidine 20 Mg Tab PO 20 mg DAILY PATSY Administration Heparin Sodium (Porcine) 5,000 unit 09/21/20 22:00 09/29/20 21:58 Heparin 5,000 Unit/1 Ml Vial SUB-Q 5,000 unit Q12HR PATSY Administration Hydralazine HCl 5 mg 09/23/20 14:00 09/30/20 06:56 Hydralazine 20 Mg/1 Ml Inj IV 5 mg Q4HR PATSY Administration Hydrophilic Ointment 1 applic 09/20/20 22:59 Lip Therapy Vaseline TP Q2HR PRN Dry Lips Norepinephrine 4 mg in 250 mls @ 7.5 mls/hr 09/21/20 05:00 Levophed Drip 4 Mg/Ns 250 Ml IV TITR PATSY Protocol 2 MCG/MIN Fentanyl Citrate 2,000 mcg in 100 mls @ 5.105 mls/hr 09/22/20 11:30 09/25/20 18:17 Fentanyl Drip Premix IV 0 mcg/kg/hr TITR PATSY 0 mls/hr Titration Protocol 1 MCG/KG/HR Dextrose 1,000 mls @ 150 mls/hr 09/29/20 14:00 09/30/20 05:57 D5w IV 150 mls/hr DIRECT PATSY Administration Metoprolol Tartrate 50 mg 09/27/20 18:00 09/30/20 06:56 Metoprolol Tartrate 50 Mg Tab PO Not Given Q6HR PATSY Multi-Ingred Cream/Lotion/Oil/Oint 1 applic 09/20/20 22:59 Mineral Oil/Petrolatum, White Ophth Oint 3.5 Gm OU Q4HR PRN Dry Eye(s) Ondansetron HCl 4 mg 09/21/20 01:24 Ondansetron 4 Mg/2 Ml Inj IV Q8H PRN Nausea And Vomiting Simple Syrup 15 ml 09/25/20 14:22 Simple Syrup 15 Ml FEEDTUBE PRN PRN Hypoglycemia Simple Syrup 30 ml 09/25/20 14:22 Simple Syrup 15 Ml FEEDTUBE PRN PRN Hypoglycemia Sodium Bicarbonate 325 mg 09/25/20 14:22 Sodium Bicarbonate 325 Mg Tab FEEDTUBE PRN PRN For Clogged Feeding Tube Sodium Chloride 10 ml 09/21/20 10:00 09/29/20 21:58 Sodium Chloride 0.9% 10 Ml Flush Syringe IV 10 ml BID PATSY Administration Sodium Chloride 10 ml 09/21/20 01:24 09/24/20 18:21 Sodium Chloride 0.9% 10 Ml Flush Syringe IV 10 ml PRN PRN Administration LINE FLUSH Nutrition/Malnutrition Assess - Dietary Evaluation Nutrition/Malnutrition Findings: Nutrition Notes Start: 09/21/20 08:17 Freq: Status: Active Protocol: Document 09/29/20 12:44 AL (Rec: 09/29/20 12:50 AL [id number]) Co-Sign 09/29/20 12:44 CW Nutrition Notes Initial or Follow up Reassessment Current Diagnosis Acute Kidney Injury, Hypertension,Heart Failure, Respiratory Failure Other Pertinent Diagnosis s/p cardiopulmonary arrest, UTI, anoxic encephalopathy with global edema Current Diet TF - Vital AF 1.2 at 65ml/hr Labs/Tests Na 167 BUN 95 Cr 3.1 Pertinent Medications D5W at 100 ml/hr Height 6 ft Weight 102.1 kg Doon Body Weight (kg) 80.90 BMI 30.5 Weight Status Obese Subjective/Other Information F/U for TF tolerance. Pt intubated. Per nephrology note , keep flush at 300 ml q4h and do not increase. Pt is having excess output per RN. Per caser up note, pt be transitioned to hospice or withdrawal of care. TF was not running at goal at time of visit. Per RN, bottle ran out. Will be restarted soon Percent of energy/protein needs met: 100%/72% Burn Absent Trauma Absent GI Symptoms None Current % PO Negligible Minimum of two criteria No physical signs of malnutrition #1 Nutrition Diagnosis Inadequate oral intake Diagnosis Progress(for reassessment Continues documentation) Is patient on ventilator? Yes Is Patient Ambulatory and/or Out of Bed No REE-([facility]-confined to bed) 2318.184 Kcal/Kg value to use for calculation 18 Approximate Energy Requirements Using 1838 kcal/Kg Calculation Used for Recommendations Kcal/kg Additional Notes Pro needs >2g/kg IBW: >162g/ day Fluid needs 1ml/kcal Nutrition Intervention Change Diet Order: Continue TF Nutrition Support: Vital AF 1.2 at 65ml/hr with 300ml water flush q4h until hypernatremia resolves. Once hypernatremia resolves, continue free water flush of 100 ml q4h. [ End ] [ End ] Kcal 1,872 Protein (gm) 117 Fluid (mL) 1,265 Goal #1 TF tolerance Goal #2 TF to meet at least 75% of estimated energy and protein needs. Anticipated Discharge Needs: Unable to determine at the time. Follow-Up By: 10/03/20 Additional Comments F/U: TF tolerance and Na labs and water flushes.
[2020-09-30] MEDS: HEPARIN 5,000 UNIT/1 ML VIAL SUB-Q SCH ×2 (09:21→23:03)
[2020-09-30] MEDS: FAMOTIDINE 20 MG TAB PO SCH (09:21)
[2020-09-30] MEDS: ASPIRIN 325 MG TAB PO SCH (09:21)
--- NOTE | 2020-09-30 09:42 | Progress Note ---
Assessment and Plan - Patient Problems (1) Cardiomyopathy Current Visit: Yes Status: Acute (2) Acute anoxic encephalopathy Current Visit: Yes Status: Acute (3) Cardiac arrest Current Visit: Yes Status: Acute Subjective Date of service: 09/30/20 Principal diagnosis: Acute respiratory failure Interval history: UN RESPONSIVE Objective Vital Signs Temp Pulse Resp BP Pulse Ox 09/30/20 09:21 65 102/59 09/30/20 09:00 64 27 H 102/59 98 09/30/20 08:31 64 27 H 110/61 98 09/30/20 08:00 98.8 F 62 26 H 112/62 97 09/30/20 07:51 63 106/63 100 09/30/20 07:30 65 27 H 106/63 97 09/30/20 07:00 76 26 H 123/72 100 09/30/20 06:56 81 123/72 09/30/20 06:55 83 123/72 09/30/20 06:30 78 28 H 123/72 100 09/30/20 06:01 78 28 H 115/73 99 09/30/20 05:30 71 27 H 119/72 99 09/30/20 05:00 73 28 H 122/76 98 09/30/20 04:31 73 27 H 118/68 99 09/30/20 04:00 77 29 H 121/64 98 09/30/20 03:39 75 129/66 97 09/30/20 03:31 73 28 H 129/66 92 09/30/20 03:29 100.2 F H 09/30/20 03:21 73 120/55 09/30/20 03:00 75 27 H 120/55 97 09/30/20 02:30 72 26 H 106/63 99 09/30/20 02:00 70 26 H 114/69 09/30/20 01:30 70 28 H 109/66 09/30/20 01:00 71 29 H 110/64 97 09/30/20 00:30 74 28 H 112/67 99 09/30/20 00:08 77 09/30/20 00:00 75 28 H 114/69 98 09/29/20 23:50 99.7 F H 09/29/20 23:30 81 33 H 131/77 98 09/29/20 23:22 76 142/69 97 09/29/20 23:01 79 31 H 142/69 95 09/29/20 22:59 78 89/54 09/29/20 22:30 73 31 H 89/54 94 09/29/20 22:15 74 31 H 103/67 97 09/29/20 22:00 77 31 H 103/67 96 09/29/20 21:31 81 30 H 104/69 91 09/29/20 21:00 77 28 H 96/66 100 09/29/20 20:47 76 122/63 97 09/29/20 20:30 75 25 H 122/63 98 09/29/20 20:15 80 09/29/20 20:02 99.9 F H 09/29/20 20:00 78 25 H 113/71 98 09/29/20 19:31 77 23 108/67 97 09/29/20 19:00 76 22 113/67 98 09/29/20 18:30 74 23 105/61 96 09/29/20 18:00 76 22 103/62 97 09/29/20 17:30 75 23 103/64 97 09/29/20 17:00 74 23 103/57 94 09/29/20 16:30 73 23 97/63 94 09/29/20 16:00 99.5 F 71 20 99/62 93 09/29/20 15:30 71 21 103/65 91 09/29/20 15:00 73 25 H 93/64 09/29/20 14:30 77 24 92/61 98 09/29/20 14:00 76 24 103/66 98 09/29/20 13:30 79 21 97/64 96 09/29/20 13:00 81 23 99/64 96 09/29/20 12:30 79 27 H 113/70 97 09/29/20 12:00 99.9 F H 83 25 H 110/70 98 09/29/20 11:30 83 20 108/72 98 09/29/20 11:17 82 26 H 102/67 98 09/29/20 11:00 98 H 19 102/66 99 09/29/20 10:30 81 28 H 102/67 96 09/29/20 10:00 79 26 H 102/62 94 - Physical Examination General: Other (intubated, unresponsive, on the vent) HEENT: Positive: Other (Pupils fixed) Neck: Positive: neck supple Cardiac: Positive: Reg Rate and Rhythm Lungs: Positive: Rhonchi Neuro: Positive: Weakness (Unresponsive, on the vent) Abdomen: Positive: Unremarkable, Soft Skin: Positive: Clear Extremities: Present: normal. Absent: edema - Labs and Meds Comprehensive Metabolic Panel 09/29/20 09/29/20 09/30/20 Range/Units 12:52 21:16 00:27 Sodium 167 H* 162 H* 162 H* (137-145) mmol/L Potassium 3.8 3.5 L 3.5 L (3.6-5.0) mmol/L Chloride 133.3 H 126.6 H 127.6 H (98-107) mmol/L Carbon Dioxide 22 22 21 L (22-30) mmol/L BUN 93 H 92 H 87 H (9-20) mg/dL Creatinine 3.0 H 2.8 H 2.7 H (0.8-1.3) mg/dL Glucose 130 H 147 H 147 H (75-100) mg/dL Calcium 8.7 8.3 L 8.5 (8.4-10.2) mg/dL 09/30/20 Range/Units 04:40 Sodium 162 H* (137-145) mmol/L Potassium 4.0 (3.6-5.0) mmol/L Chloride 127.2 H (98-107) mmol/L Carbon Dioxide 20 L (22-30) mmol/L BUN 89 H (9-20) mg/dL Creatinine 2.8 H (0.8-1.3) mg/dL Glucose 132 H (75-100) mg/dL Calcium 8.1 L (8.4-10.2) mg/dL
--- NOTE | 2020-09-30 11:31 | Progress Note ---
Assessment and Plan - Patient Problems (1) Acute anoxic encephalopathy Current Visit: Yes Status: Acute (2) Fever Current Visit: Yes Status: Acute (3) Hypernatremia Current Visit: Yes Status: Acute (4) Acute respiratory failure Current Visit: Yes Status: Acute (5) Cardiopulmonary arrest Current Visit: Yes Status: Acute (6) Renal failure Current Visit: Yes Status: Acute Qualifiers: Renal failure chronicity: acute Acute renal failure type: unspecified Qualified Code(s): N17.9 - Acute kidney failure, unspecified Subjective Principal diagnosis: Acute respiratory failure Interval history: on cpap 10/6 fio2 35% no response to painful stimuli secretions Objective Vital Signs - 12hr 09/29/20 09/29/20 09/29/20 22:59 23:01 23:22 Temperature Pulse Rate 78 79 76 Respiratory 31 H Rate Blood Pressure 89/54 142/69 142/69 O2 Sat by Pulse 95 97 Oximetry 09/29/20 09/29/20 09/30/20 23:30 23:50 00:00 Temperature 99.7 F H Pulse Rate 81 75 Respiratory 33 H 28 H Rate Blood Pressure 131/77 114/69 O2 Sat by Pulse 98 98 Oximetry 09/30/20 09/30/20 09/30/20 00:08 00:30 01:00 Temperature Pulse Rate 77 74 71 Respiratory 28 H 29 H Rate Blood Pressure 112/67 110/64 O2 Sat by Pulse 99 97 Oximetry 09/30/20 09/30/20 09/30/20 01:30 02:00 02:30 Temperature Pulse Rate 70 70 72 Respiratory 28 H 26 H 26 H Rate Blood Pressure 109/66 114/69 106/63 O2 Sat by Pulse 99 Oximetry 09/30/20 09/30/20 09/30/20 03:00 03:21 03:29 Temperature 100.2 F H Pulse Rate 75 73 Respiratory 27 H Rate Blood Pressure 120/55 120/55 O2 Sat by Pulse 97 Oximetry 09/30/20 09/30/20 09/30/20 03:31 03:39 04:00 Temperature Pulse Rate 73 75 77 Respiratory 28 H 29 H Rate Blood Pressure 129/66 129/66 121/64 O2 Sat by Pulse 92 97 98 Oximetry 09/30/20 09/30/20 09/30/20 04:31 05:00 05:30 Temperature Pulse Rate 73 73 71 Respiratory 27 H 28 H 27 H Rate Blood Pressure 118/68 122/76 119/72 O2 Sat by Pulse 99 98 99 Oximetry 09/30/20 09/30/20 09/30/20 06:01 06:30 06:55 Temperature Pulse Rate 78 78 83 Respiratory 28 H 28 H Rate Blood Pressure 115/73 123/72 123/72 O2 Sat by Pulse 99 100 Oximetry 09/30/20 09/30/20 09/30/20 06:56 07:00 07:30 Temperature Pulse Rate 81 76 65 Respiratory 26 H 27 H Rate Blood Pressure 123/72 123/72 106/63 O2 Sat by Pulse 100 97 Oximetry 09/30/20 09/30/20 09/30/20 07:51 08:00 08:31 Temperature 98.8 F Pulse Rate 63 62 64 Respiratory 26 H 27 H Rate Blood Pressure 106/63 112/62 110/61 O2 Sat by Pulse 100 97 98 Oximetry 09/30/20 09/30/20 09/30/20 09:00 09:21 09:30 Temperature Pulse Rate 64 65 66 Respiratory 27 H 26 H Rate Blood Pressure 102/59 102/59 105/63 O2 Sat by Pulse 98 99 Oximetry 09/30/20 09/30/20 09/30/20 09:31 10:00 10:30 Temperature Pulse Rate 67 64 64 Respiratory 28 H 26 H 26 H Rate Blood Pressure 126/71 105/63 107/63 O2 Sat by Pulse 99 99 100 Oximetry Constitutional: other (on vent not responsive no sedation on cpap) Eyes: non-icteric ENT: other (intubated, critically ill) Neck: supple Effort: normal Ascultation: Bilateral: clear Percussion: Bilateral: not dull Tactile fremitus: Bilateral: normal Cardiovascular: other (sinus tachycardia) Gastrointestinal: normoactive bowel sounds Integumentary: normal Extremities: no cyanosis, no edema, pink and warm Neurologic: other (comatose/unresponsive) Psychiatric: other (unable to assess) CBC and BMP: 09/29/20 07:24 09/30/20 04:40 ABG, PT/INR, D-dimer: ABG ABG pH 7.446 (7.320-7.450) 09/30/20 02:59 POC ABG pCO2 28.6 mmHg (32.0-48.0) L 09/30/20 02:59 ABG pCO2 40.5 mm Hg 09/21/20 02:15 POC ABG pO2 70.4 mmHg (83-108) L 09/30/20 02:59 ABG pO2 244.1 mm Hg (80.0-90.0) H 09/21/20 02:15 POC ABG HCO3 19.3 09/30/20 02:59 ABG O2 Saturation 94.6 (0-100) 09/30/20 02:59 PT/INR, D-dimer PT 15.5 Sec. (12.2-14.9) H 09/22/20 08:26 INR 1.25 (0.87-1.13) H 09/22/20 08:26 Abnormal lab findings: Abnormal Labs 09/20/20 09/20/20 09/20/20 23:02 23:02 23:02 WBC RBC Hgb Hct MCV 96 H RDW 15.8 H Plt Count Lymph % (Auto) [place] % (Auto) Lymph # (Auto) [place] # (Auto) Seg Neutrophils % Seg Neuts % (Manual) 34.0 L Lymphocytes % (Manual) 57.0 H Seg Neutrophils # PT INR 1.14 H ABG pH POC ABG pCO2 POC ABG pO2 ABG pO2 ABG HCO3 ABG O2 Saturation ABG Base Excess ABG Oxyhemoglobin ABG Sodium ABG Potassium ABG Chloride ABG Glucose Sodium Potassium Chloride Carbon Dioxide 21 L BUN 26 H Creatinine 2.1 H Glucose 227 H POC Glucose Lactic Acid Calcium 10.3 H Phosphorus AST 59 H Total Creatine Kinase Troponin T HDL Cholesterol Arterial Blood Glucose Arterial Blood Ionized Calcium Urine WBC (Auto) Urine Creatinine 09/20/20 09/20/20 09/21/20 23:15 23:35 01:20 WBC RBC Hgb Hct MCV RDW Plt Count Lymph % (Auto) [place] % (Auto) Lymph # (Auto) [place] # (Auto) Seg Neutrophils % Seg Neuts % (Manual) Lymphocytes % (Manual) Seg Neutrophils # PT INR ABG pH POC ABG pCO2 POC ABG pO2 ABG pO2 ABG HCO3 ABG O2 Saturation ABG Base Excess ABG Oxyhemoglobin ABG Sodium ABG Potassium ABG Chloride ABG Glucose Sodium Potassium Chloride Carbon Dioxide BUN Creatinine Glucose POC Glucose 197 H Lactic Acid 8.70 H* Calcium Phosphorus AST Total Creatine Kinase Troponin T HDL Cholesterol Arterial Blood Glucose Arterial Blood Ionized Calcium Urine WBC (Auto) 47.0 H Urine Creatinine 09/21/20 09/21/20 09/21/20 02:01 02:15 04:25 WBC RBC Hgb Hct MCV RDW Plt Count Lymph % (Auto) [place] % (Auto) Lymph # (Auto) [place] # (Auto) Seg Neutrophils % Seg Neuts % (Manual) Lymphocytes % (Manual) Seg Neutrophils # PT INR ABG pH 7.258 L POC ABG pCO2 POC ABG pO2 ABG pO2 244.1 H ABG HCO3 17.7 L ABG O2 Saturation 99.4 H ABG Base Excess -8.8 L ABG Oxyhemoglobin ABG Sodium ABG Potassium ABG Chloride ABG Glucose Sodium Potassium Chloride Carbon Dioxide BUN Creatinine Glucose POC Glucose 65 L Lactic Acid Calcium Phosphorus AST Total Creatine Kinase Troponin T 0.865 H* D HDL Cholesterol 60 H Arterial Blood Glucose Arterial Blood Ionized Calcium Urine WBC (Auto) Urine Creatinine 09/21/20 09/21/20 09/21/20 04:34 04:34 07:03 WBC RBC Hgb 16.9 H D Hct 51.3 H D MCV RDW Plt Count Lymph % (Auto) [place] % (Auto) Lymph # (Auto) [place] # (Auto) Seg Neutrophils % Seg Neuts % (Manual) Lymphocytes % (Manual) Seg Neutrophils # PT INR ABG pH POC ABG pCO2 POC ABG pO2 ABG pO2 ABG HCO3 ABG O2 Saturation ABG Base Excess ABG Oxyhemoglobin ABG Sodium ABG Potassium ABG Chloride ABG Glucose Sodium Potassium Chloride Carbon Dioxide BUN Creatinine Glucose POC Glucose Lactic Acid 3.00 H* Calcium Phosphorus AST Total Creatine Kinase Troponin T 1.880 H* D HDL Cholesterol Arterial Blood Glucose Arterial Blood Ionized Calcium Urine WBC (Auto) Urine Creatinine 09/21/20 09/21/20 09/21/20 07:03 07:32 07:53 WBC 19.2 H RBC 5.31 H Hgb 16.0 H Hct 49.0 H MCV RDW 15.7 H Plt Count Lymph % (Auto) [place] % (Auto) Lymph # (Auto) [place] # (Auto) Seg Neutrophils % Seg Neuts % (Manual) Lymphocytes % (Manual) Seg Neutrophils # PT 16.3 H INR 1.31 H ABG pH POC ABG pCO2 POC ABG pO2 ABG pO2 ABG HCO3 ABG O2 Saturation ABG Base Excess ABG Oxyhemoglobin ABG Sodium ABG Potassium ABG Chloride ABG Glucose Sodium Potassium Chloride Carbon Dioxide BUN Creatinine Glucose POC Glucose 60 L Lactic Acid Calcium Phosphorus AST Total Creatine Kinase Troponin T HDL Cholesterol Arterial Blood Glucose Arterial Blood Ionized Calcium Urine WBC (Auto) Urine Creatinine 09/21/20 09/21/20 09/21/20 07:53 09:30 10:08 WBC RBC Hgb Hct MCV RDW Plt Count Lymph % (Auto) [place] % (Auto) Lymph # (Auto) [place] # (Auto) Seg Neutrophils % Seg Neuts % (Manual) Lymphocytes % (Manual) Seg Neutrophils # PT 15.4 H INR 1.24 H ABG pH POC ABG pCO2 POC ABG pO2 ABG pO2 ABG HCO3 ABG O2 Saturation ABG Base Excess ABG Oxyhemoglobin ABG Sodium ABG Potassium ABG Chloride ABG Glucose Sodium 146 H Potassium 3.5 L Chloride 109.6 H Carbon Dioxide 20 L BUN 37 H Creatinine 2.8 H Glucose 127 H POC Glucose Lactic Acid 3.00 H* Calcium Phosphorus AST Total Creatine Kinase Troponin T HDL Cholesterol Arterial Blood Glucose Arterial Blood Ionized Calcium Urine WBC (Auto) Urine Creatinine 09/21/20 09/21/20 09/21/20 10:34 11:22 11:44 WBC RBC Hgb Hct MCV RDW Plt Count Lymph % (Auto) [place] % (Auto) Lymph # (Auto) [place] # (Auto) Seg Neutrophils % Seg Neuts % (Manual) Lymphocytes % (Manual) Seg Neutrophils # PT INR ABG pH POC ABG pCO2 25.9 L POC ABG pO2 196.9 H ABG pO2 ABG HCO3 ABG O2 Saturation ABG Base Excess ABG Oxyhemoglobin 98.4 H ABG Sodium ABG Potassium 3.3 L ABG Chloride 113.0 H ABG Glucose 130 H Sodium Potassium Chloride Carbon Dioxide BUN Creatinine Glucose POC Glucose 126 H 127 H Lactic Acid Calcium Phosphorus AST Total Creatine Kinase Troponin T HDL Cholesterol Arterial Blood Glucose 130 H Arterial Blood Ionized Calcium Urine WBC (Auto) Urine Creatinine 09/21/20 09/21/20 09/21/20 14:27 14:27 15:09 WBC RBC Hgb Hct MCV RDW Plt Count Lymph % (Auto) [place] % (Auto) Lymph # (Auto) [place] # (Auto) Seg Neutrophils % Seg Neuts % (Manual) Lymphocytes % (Manual) Seg Neutrophils # PT INR ABG pH POC ABG pCO2 POC ABG pO2 ABG pO2 ABG HCO3 ABG O2 Saturation ABG Base Excess ABG Oxyhemoglobin ABG Sodium ABG Potassium ABG Chloride ABG Glucose Sodium Potassium Chloride Carbon Dioxide BUN Creatinine Glucose POC Glucose 135 H Lactic Acid Calcium Phosphorus AST Total Creatine Kinase Troponin T HDL Cholesterol Arterial Blood Glucose Arterial Blood Ionized Calcium Urine WBC (Auto) 12.0 H Urine Creatinine 60.4 H 09/21/20 09/21/20 09/21/20 15:54 15:54 16:13 WBC RBC Hgb Hct MCV RDW Plt Count Lymph % (Auto) [place] % (Auto) Lymph # (Auto) [place] # (Auto) Seg Neutrophils % Seg Neuts % (Manual) Lymphocytes % (Manual) Seg Neutrophils # PT INR ABG pH POC ABG pCO2 POC ABG pO2 ABG pO2 ABG HCO3 ABG O2 Saturation ABG Base Excess ABG Oxyhemoglobin ABG Sodium ABG Potassium ABG Chloride ABG Glucose Sodium Potassium Chloride Carbon Dioxide BUN Creatinine Glucose POC Glucose 131 H Lactic Acid 3.60 H* Calcium Phosphorus AST Total Creatine Kinase 3606 H Troponin T HDL Cholesterol Arterial Blood Glucose Arterial Blood Ionized Calcium Urine WBC (Auto) Urine Creatinine 09/21/20 09/21/20 09/21/20 18:02 19:48 20:57 WBC RBC Hgb Hct MCV RDW Plt Count Lymph % (Auto) [place] % (Auto) Lymph # (Auto) [place] # (Auto) Seg Neutrophils % Seg Neuts % (Manual) Lymphocytes % (Manual) Seg Neutrophils # PT INR ABG pH POC ABG pCO2 POC ABG pO2 ABG pO2 ABG HCO3 ABG O2 Saturation ABG Base Excess ABG Oxyhemoglobin ABG Sodium ABG Potassium ABG Chloride ABG Glucose Sodium Potassium Chloride Carbon Dioxide BUN Creatinine Glucose POC Glucose 139 H 184 H 173 H Lactic Acid Calcium Phosphorus AST Total Creatine Kinase Troponin T HDL Cholesterol Arterial Blood Glucose Arterial Blood Ionized Calcium Urine WBC (Auto) Urine Creatinine 09/21/20 09/21/20 09/21/20 22:02 22:27 23:54 WBC RBC Hgb Hct MCV RDW Plt Count Lymph % (Auto) [place] % (Auto) Lymph # (Auto) [place] # (Auto) Seg Neutrophils % Seg Neuts % (Manual) Lymphocytes % (Manual) Seg Neutrophils # PT INR ABG pH POC ABG pCO2 POC ABG pO2 ABG pO2 ABG HCO3 ABG O2 Saturation ABG Base Excess ABG Oxyhemoglobin ABG Sodium ABG Potassium ABG Chloride ABG Glucose Sodium Potassium Chloride Carbon Dioxide BUN Creatinine Glucose POC Glucose 147 H 142 H 143 H Lactic Acid Calcium Phosphorus AST Total Creatine Kinase Troponin T HDL Cholesterol Arterial Blood Glucose Arterial Blood Ionized Calcium Urine WBC (Auto) Urine Creatinine 09/22/20 09/22/20 09/22/20 00:49 02:01 02:14 WBC RBC Hgb Hct MCV RDW Plt Count Lymph % (Auto) [place] % (Auto) Lymph # (Auto) [place] # (Auto) Seg Neutrophils % Seg Neuts % (Manual) Lymphocytes % (Manual) Seg Neutrophils # PT INR ABG pH POC ABG pCO2 POC ABG pO2 ABG pO2 ABG HCO3 ABG O2 Saturation ABG Base Excess ABG Oxyhemoglobin ABG Sodium ABG Potassium ABG Chloride ABG Glucose Sodium Potassium Chloride Carbon Dioxide BUN Creatinine Glucose POC Glucose 154 H 154 H 149 H Lactic Acid Calcium Phosphorus AST Total Creatine Kinase Troponin T HDL Cholesterol Arterial Blood Glucose Arterial Blood Ionized Calcium Urine WBC (Auto) Urine Creatinine 09/22/20 09/22/20 09/22/20 02:57 03:21 03:58 WBC RBC Hgb Hct MCV RDW Plt Count Lymph % (Auto) [place] % (Auto) Lymph # (Auto) [place] # (Auto) Seg Neutrophils % Seg Neuts % (Manual) Lymphocytes % (Manual) Seg Neutrophils # PT INR ABG pH 7.496 H POC ABG pCO2 25.0 L POC ABG pO2 73.8 L ABG pO2 ABG HCO3 ABG O2 Saturation ABG Base Excess ABG Oxyhemoglobin ABG Sodium ABG Potassium ABG Chloride 115.0 H ABG Glucose 154 H Sodium Potassium Chloride Carbon Dioxide BUN Creatinine Glucose POC Glucose 166 H 158 H Lactic Acid Calcium Phosphorus AST Total Creatine Kinase Troponin T HDL Cholesterol Arterial Blood Glucose 154 H Arterial Blood Ionized Calcium 4.5 L Urine WBC (Auto) Urine Creatinine 09/22/20 09/22/20 09/22/20 05:06 05:56 06:50 WBC RBC Hgb Hct MCV RDW Plt Count Lymph % (Auto) [place] % (Auto) Lymph # (Auto) [place] # (Auto) Seg Neutrophils % Seg Neuts % (Manual) Lymphocytes % (Manual) Seg Neutrophils # PT INR ABG pH POC ABG pCO2 POC ABG pO2 ABG pO2 ABG HCO3 ABG O2 Saturation ABG Base Excess ABG Oxyhemoglobin ABG Sodium ABG Potassium ABG Chloride ABG Glucose Sodium Potassium Chloride Carbon Dioxide BUN Creatinine Glucose POC Glucose 147 H 145 H 137 H Lactic Acid Calcium Phosphorus AST Total Creatine Kinase Troponin T HDL Cholesterol Arterial Blood Glucose Arterial Blood Ionized Calcium Urine WBC (Auto) Urine Creatinine 09/22/20 09/22/20 09/22/20 08:02 08:26 08:26 WBC 15.2 H RBC Hgb Hct MCV RDW 16.0 H Plt Count Lymph % (Auto) 7.6 L [place] % (Auto) Lymph # (Auto) [place] # (Auto) 1.0 H Seg Neutrophils % 86.0 H Seg Neuts % (Manual) Lymphocytes % (Manual) Seg Neutrophils # 13.0 H PT 15.5 H INR 1.25 H ABG pH POC ABG pCO2 POC ABG pO2 ABG pO2 ABG HCO3 ABG O2 Saturation ABG Base Excess ABG Oxyhemoglobin ABG Sodium ABG Potassium ABG Chloride ABG Glucose Sodium Potassium Chloride Carbon Dioxide BUN Creatinine Glucose POC Glucose 149 H Lactic Acid Calcium Phosphorus AST Total Creatine Kinase Troponin T HDL Cholesterol Arterial Blood Glucose Arterial Blood Ionized Calcium Urine WBC (Auto) Urine Creatinine 09/22/20 09/22/20 09/22/20 08:26 12:04 15:55 WBC RBC Hgb Hct MCV RDW Plt Count Lymph % (Auto) [place] % (Auto) Lymph # (Auto) [place] # (Auto) Seg Neutrophils % Seg Neuts % (Manual) Lymphocytes % (Manual) Seg Neutrophils # PT INR ABG pH POC ABG pCO2 POC ABG pO2 ABG pO2 ABG HCO3 ABG O2 Saturation ABG Base Excess ABG Oxyhemoglobin ABG Sodium ABG Potassium ABG Chloride ABG Glucose Sodium 146 H Potassium 3.5 L Chloride 114.0 H Carbon Dioxide 18 L BUN 46 H Creatinine 3.7 H Glucose 134 H POC Glucose 138 H 123 H Lactic Acid Calcium 7.7 L Phosphorus AST Total Creatine Kinase Troponin T HDL Cholesterol Arterial Blood Glucose Arterial Blood Ionized Calcium Urine WBC (Auto) Urine Creatinine 09/22/20 09/22/20 09/23/20 21:57 23:41 03:30 WBC 14.2 H RBC Hgb Hct MCV RDW 16.5 H Plt Count 126 L Lymph % (Auto) 8.2 L [place] % (Auto) 7.8 H Lymph # (Auto) [place] # (Auto) 1.1 H Seg Neutrophils % 83.8 H Seg Neuts % (Manual) Lymphocytes % (Manual) Seg Neutrophils # 11.9 H PT INR ABG pH POC ABG pCO2 POC ABG pO2 ABG pO2 ABG HCO3 ABG O2 Saturation ABG Base Excess ABG Oxyhemoglobin ABG Sodium ABG Potassium ABG Chloride ABG Glucose Sodium Potassium Chloride Carbon Dioxide BUN Creatinine Glucose POC Glucose 124 H 130 H Lactic Acid Calcium Phosphorus AST Total Creatine Kinase Troponin T HDL Cholesterol Arterial Blood Glucose Arterial Blood Ionized Calcium Urine WBC (Auto) Urine Creatinine 09/23/20 09/23/20 09/23/20 03:30 03:45 12:33 WBC RBC Hgb Hct MCV RDW Plt Count Lymph % (Auto) [place] % (Auto) Lymph # (Auto) [place] # (Auto) Seg Neutrophils % Seg Neuts % (Manual) Lymphocytes % (Manual) Seg Neutrophils # PT INR ABG pH POC ABG pCO2 POC ABG pO2 ABG pO2 ABG HCO3 ABG O2 Saturation ABG Base Excess ABG Oxyhemoglobin ABG Sodium ABG Potassium ABG Chloride ABG Glucose Sodium Potassium Chloride 110.4 H Carbon Dioxide 19 L BUN 56 H Creatinine 4.7 H Glucose 148 H POC Glucose 132 H 139 H Lactic Acid Calcium 7.4 L Phosphorus 5.80 H D AST Total Creatine Kinase Troponin T HDL Cholesterol Arterial Blood Glucose Arterial Blood Ionized Calcium Urine WBC (Auto) Urine Creatinine 09/23/20 09/23/20 09/24/20 17:54 23:18 02:57 WBC RBC Hgb Hct MCV RDW Plt Count Lymph % (Auto) [place] % (Auto) Lymph # (Auto) [place] # (Auto) Seg Neutrophils % Seg Neuts % (Manual) Lymphocytes % (Manual) Seg Neutrophils # PT INR ABG pH POC ABG pCO2 30.0 L POC ABG pO2 75.1 L ABG pO2 ABG HCO3 ABG O2 Saturation ABG Base Excess ABG Oxyhemoglobin ABG Sodium 149.5 H ABG Potassium ABG Chloride 119.0 H ABG Glucose 144 H Sodium Potassium Chloride Carbon Dioxide BUN Creatinine Glucose POC Glucose 115 H 139 H Lactic Acid Calcium Phosphorus AST Total Creatine Kinase Troponin T HDL Cholesterol Arterial Blood Glucose 144 H Arterial Blood Ionized Calcium Urine WBC (Auto) Urine Creatinine 09/24/20 09/24/20 09/24/20 04:20 04:30 05:10 WBC 14.3 H RBC Hgb Hct MCV RDW 16.6 H Plt Count 135 L Lymph % (Auto) 5.9 L [place] % (Auto) Lymph # (Auto) 0.8 L [place] # (Auto) 0.9 H Seg Neutrophils % 87.5 H Seg Neuts % (Manual) Lymphocytes % (Manual) Seg Neutrophils # 12.5 H PT INR ABG pH POC ABG pCO2 POC ABG pO2 ABG pO2 ABG HCO3 ABG O2 Saturation ABG Base Excess ABG Oxyhemoglobin ABG Sodium ABG Potassium ABG Chloride ABG Glucose Sodium 147 H Potassium Chloride 114.4 H Carbon Dioxide 19 L BUN 50 H Creatinine 3.2 H Glucose 142 H POC Glucose 137 H Lactic Acid Calcium 8.3 L Phosphorus AST Total Creatine Kinase Troponin T HDL Cholesterol Arterial Blood Glucose Arterial Blood Ionized Calcium Urine WBC (Auto) Urine Creatinine 09/24/20 09/24/20 09/24/20 12:03 17:39 23:15 WBC RBC Hgb Hct MCV RDW Plt Count Lymph % (Auto) [place] % (Auto) Lymph # (Auto) [place] # (Auto) Seg Neutrophils % Seg Neuts % (Manual) Lymphocytes % (Manual) Seg Neutrophils # PT INR ABG pH POC ABG pCO2 POC ABG pO2 ABG pO2 ABG HCO3 ABG O2 Saturation ABG Base Excess ABG Oxyhemoglobin ABG Sodium ABG Potassium ABG Chloride ABG Glucose Sodium Potassium Chloride Carbon Dioxide BUN Creatinine Glucose POC Glucose 120 H 155 H 109 H Lactic Acid Calcium Phosphorus AST Total Creatine Kinase Troponin T HDL Cholesterol Arterial Blood Glucose Arterial Blood Ionized Calcium Urine WBC (Auto) Urine Creatinine 09/25/20 09/25/20 09/25/20 03:02 05:16 07:50 WBC 14.0 H RBC Hgb Hct MCV RDW 16.5 H Plt Count Lymph % (Auto) 6.7 L [place] % (Auto) 9.1 H Lymph # (Auto) 0.9 L [place] # (Auto) 1.3 H Seg Neutrophils % 84.1 H Seg Neuts % (Manual) Lymphocytes % (Manual) Seg Neutrophils # 11.8 H PT INR ABG pH POC ABG pCO2 POC ABG pO2 67.4 L ABG pO2 ABG HCO3 ABG O2 Saturation ABG Base Excess ABG Oxyhemoglobin 92.3 L ABG Sodium 157.3 H ABG Potassium ABG Chloride 125.0 H ABG Glucose 147 H Sodium Potassium Chloride Carbon Dioxide BUN Creatinine Glucose POC Glucose 126 H Lactic Acid Calcium Phosphorus AST Total Creatine Kinase Troponin T HDL Cholesterol Arterial Blood Glucose 147 H Arterial Blood Ionized Calcium Urine WBC (Auto) Urine Creatinine 09/25/20 09/25/20 09/25/20 07:50 11:56 14:50 WBC RBC Hgb Hct MCV RDW Plt Count Lymph % (Auto) [place] % (Auto) Lymph # (Auto) [place] # (Auto) Seg Neutrophils % Seg Neuts % (Manual) Lymphocytes % (Manual) Seg Neutrophils # PT INR ABG pH POC ABG pCO2 POC ABG pO2 ABG pO2 ABG HCO3 ABG O2 Saturation ABG Base Excess ABG Oxyhemoglobin ABG Sodium ABG Potassium ABG Chloride ABG Glucose Sodium 160 H D 160 H Potassium Chloride 124.2 H Carbon Dioxide BUN 54 H Creatinine 2.8 H Glucose 124 H POC Glucose 109 H Lactic Acid Calcium 8.3 L Phosphorus AST Total Creatine Kinase Troponin T HDL Cholesterol Arterial Blood Glucose Arterial Blood Ionized Calcium Urine WBC (Auto) Urine Creatinine 09/25/20 09/25/20 09/25/20 18:02 19:45 23:02 WBC RBC Hgb Hct MCV RDW Plt Count Lymph % (Auto) [place] % (Auto) Lymph # (Auto) [place] # (Auto) Seg Neutrophils % Seg Neuts % (Manual) Lymphocytes % (Manual) Seg Neutrophils # PT INR ABG pH POC ABG pCO2 POC ABG pO2 ABG pO2 ABG HCO3 ABG O2 Saturation ABG Base Excess ABG Oxyhemoglobin ABG Sodium ABG Potassium ABG Chloride ABG Glucose Sodium 162 H* 160 H Potassium Chloride Carbon Dioxide BUN Creatinine Glucose POC Glucose 113 H Lactic Acid Calcium Phosphorus AST Total Creatine Kinase Troponin T HDL Cholesterol Arterial Blood Glucose Arterial Blood Ionized Calcium Urine WBC (Auto) Urine Creatinine 09/25/20 09/26/20 09/26/20 23:17 03:30 04:17 WBC 13.9 H RBC Hgb Hct MCV RDW 16.2 H Plt Count 133 L Lymph % (Auto) 7.4 L [place] % (Auto) 11.2 H Lymph # (Auto) 1.0 L [place] # (Auto) 1.6 H Seg Neutrophils % 81.0 H Seg Neuts % (Manual) Lymphocytes % (Manual) Seg Neutrophils # 11.3 H PT INR ABG pH 7.472 H POC ABG pCO2 31.1 L POC ABG pO2 56.5 L ABG pO2 ABG HCO3 ABG O2 Saturation ABG Base Excess ABG Oxyhemoglobin 91.3 L ABG Sodium 159.9 H ABG Potassium ABG Chloride 129.0 H ABG Glucose 135 H Sodium Potassium Chloride Carbon Dioxide BUN Creatinine Glucose POC Glucose 119 H Lactic Acid Calcium Phosphorus AST Total Creatine Kinase Troponin T HDL Cholesterol Arterial Blood Glucose 135 H Arterial Blood Ionized Calcium Urine WBC (Auto) Urine Creatinine 09/26/20 09/26/20 09/26/20 04:17 05:34 11:44 WBC RBC Hgb Hct MCV RDW Plt Count Lymph % (Auto) [place] % (Auto) Lymph # (Auto) [place] # (Auto) Seg Neutrophils % Seg Neuts % (Manual) Lymphocytes % (Manual) Seg Neutrophils # PT INR ABG pH POC ABG pCO2 POC ABG pO2 ABG pO2 ABG HCO3 ABG O2 Saturation ABG Base Excess ABG Oxyhemoglobin ABG Sodium ABG Potassium ABG Chloride ABG Glucose Sodium 162 H* Potassium Chloride 128.4 H Carbon Dioxide BUN 56 H Creatinine 2.5 H Glucose 128 H POC Glucose 135 H 141 H Lactic Acid Calcium Phosphorus 2.00 L D AST Total Creatine Kinase Troponin T HDL Cholesterol Arterial Blood Glucose Arterial Blood Ionized Calcium Urine WBC (Auto) Urine Creatinine 09/26/20 09/26/20 09/26/20 12:12 13:38 17:46 WBC RBC Hgb Hct MCV RDW Plt Count Lymph % (Auto) [place] % (Auto) Lymph # (Auto) [place] # (Auto) Seg Neutrophils % Seg Neuts % (Manual) Lymphocytes % (Manual) Seg Neutrophils # PT INR ABG pH POC ABG pCO2 POC ABG pO2 ABG pO2 ABG HCO3 ABG O2 Saturation ABG Base Excess ABG Oxyhemoglobin ABG Sodium ABG Potassium ABG Chloride ABG Glucose Sodium 160 H Potassium Chloride 127.2 H Carbon Dioxide BUN 60 H Creatinine 2.5 H Glucose 137 H POC Glucose 119 H Lactic Acid Calcium Phosphorus AST Total Creatine Kinase Troponin T HDL Cholesterol Arterial Blood Glucose Arterial Blood Ionized Calcium Urine WBC (Auto) 8.0 H Urine Creatinine 09/26/20 09/27/20 09/27/20 22:25 00:01 00:30 WBC RBC Hgb Hct MCV RDW Plt Count Lymph % (Auto) [place] % (Auto) Lymph # (Auto) [place] # (Auto) Seg Neutrophils % Seg Neuts % (Manual) Lymphocytes % (Manual) Seg Neutrophils # PT INR ABG pH POC ABG pCO2 POC ABG pO2 ABG pO2 ABG HCO3 ABG O2 Saturation ABG Base Excess ABG Oxyhemoglobin ABG Sodium ABG Potassium ABG Chloride ABG Glucose Sodium 161 H* 163 H* Potassium Chloride 129.3 H Carbon Dioxide BUN 61 H Creatinine 2.6 H Glucose 146 H POC Glucose 156 H Lactic Acid Calcium Phosphorus AST Total Creatine Kinase Troponin T HDL Cholesterol Arterial Blood Glucose Arterial Blood Ionized Calcium Urine WBC (Auto) Urine Creatinine 09/27/20 09/27/20 09/27/20 03:18 04:40 04:40 WBC 13.8 H RBC Hgb Hct MCV RDW 15.9 H Plt Count 123 L Lymph % (Auto) 7.8 L [place] % (Auto) 10.2 H Lymph # (Auto) 1.1 L [place] # (Auto) 1.4 H Seg Neutrophils % 81.5 H Seg Neuts % (Manual) Lymphocytes % (Manual) Seg Neutrophils # 11.2 H PT INR ABG pH POC ABG pCO2 POC ABG pO2 70.0 L ABG pO2 ABG HCO3 ABG O2 Saturation ABG Base Excess ABG Oxyhemoglobin ABG Sodium 160.6 H ABG Potassium ABG Chloride 130.0 H ABG Glucose 139 H Sodium 162 H* Potassium Chloride 128.9 H Carbon Dioxide BUN 63 H Creatinine 2.6 H Glucose 128 H POC Glucose Lactic Acid Calcium 8.3 L Phosphorus AST Total Creatine Kinase Troponin T HDL Cholesterol Arterial Blood Glucose 139 H Arterial Blood Ionized Calcium Urine WBC (Auto) Urine Creatinine 09/27/20 09/27/20 09/27/20 05:55 10:15 11:33 WBC RBC Hgb Hct MCV RDW Plt Count Lymph % (Auto) [place] % (Auto) Lymph # (Auto) [place] # (Auto) Seg Neutrophils % Seg Neuts % (Manual) Lymphocytes % (Manual) Seg Neutrophils # PT INR ABG pH POC ABG pCO2 POC ABG pO2 ABG pO2 ABG HCO3 ABG O2 Saturation ABG Base Excess ABG Oxyhemoglobin ABG Sodium ABG Potassium ABG Chloride ABG Glucose Sodium 164 H* Potassium 3.5 L Chloride 131.3 H Carbon Dioxide BUN 63 H Creatinine 2.7 H Glucose 147 H POC Glucose 116 H 131 H Lactic Acid Calcium Phosphorus AST Total Creatine Kinase Troponin T HDL Cholesterol Arterial Blood Glucose Arterial Blood Ionized Calcium Urine WBC (Auto) Urine Creatinine 09/27/20 09/28/2021 17:21 00:10 03:20 WBC RBC Hgb Hct MCV RDW Plt Count Lymph % (Auto) [place] % (Auto) Lymph # (Auto) [place] # (Auto) Seg Neutrophils % Seg Neuts % (Manual) Lymphocytes % (Manual) Seg Neutrophils # PT INR ABG pH POC ABG pCO2 30.0 L POC ABG pO2 72.7 L ABG pO2 ABG HCO3 ABG O2 Saturation ABG Base Excess ABG Oxyhemoglobin ABG Sodium 159.8 H ABG Potassium ABG Chloride 131.0 H ABG Glucose 156 H Sodium Potassium Chloride Carbon Dioxide BUN Creatinine Glucose POC Glucose 151 H 125 H Lactic Acid Calcium Phosphorus AST Total Creatine Kinase Troponin T HDL Cholesterol Arterial Blood Glucose 156 H Arterial Blood Ionized Calcium Urine WBC (Auto) Urine Creatinine 09/28/20 09/28/20 09/28/20 04:29 04:29 05:16 WBC 16.7 H RBC Hgb Hct MCV RDW 16.4 H Plt Count 123 L Lymph % (Auto) 6.6 L [place] % (Auto) Lymph # (Auto) 1.1 L [place] # (Auto) 1.1 H Seg Neutrophils % 86.5 H Seg Neuts % (Manual) Lymphocytes % (Manual) Seg Neutrophils # 14.4 H PT INR ABG pH POC ABG pCO2 POC ABG pO2 ABG pO2 ABG HCO3 ABG O2 Saturation ABG Base Excess ABG Oxyhemoglobin ABG Sodium ABG Potassium ABG Chloride ABG Glucose Sodium 162 H* Potassium Chloride 128.7 H Carbon Dioxide 21 L BUN 73 H Creatinine 2.8 H Glucose 166 H POC Glucose 135 H Lactic Acid Calcium Phosphorus AST Total Creatine Kinase Troponin T HDL Cholesterol Arterial Blood Glucose Arterial Blood Ionized Calcium Urine WBC (Auto) Urine Creatinine 09/28/20 09/28/20 09/28/20 12:01 12:51 17:43 WBC RBC Hgb Hct MCV RDW Plt Count Lymph % (Auto) [place] % (Auto) Lymph # (Auto) [place] # (Auto) Seg Neutrophils % Seg Neuts % (Manual) Lymphocytes % (Manual) Seg Neutrophils # PT INR ABG pH POC ABG pCO2 POC ABG pO2 ABG pO2 ABG HCO3 ABG O2 Saturation ABG Base Excess ABG Oxyhemoglobin ABG Sodium ABG Potassium ABG Chloride ABG Glucose Sodium 161 H* Potassium Chloride 129.8 H Carbon Dioxide 20 L BUN 80 H Creatinine 2.9 H Glucose 139 H POC Glucose 115 H 119 H Lactic Acid Calcium 8.3 L Phosphorus AST Total Creatine Kinase Troponin T HDL Cholesterol Arterial Blood Glucose Arterial Blood Ionized Calcium Urine WBC (Auto) Urine Creatinine 09/28/20 09/29/20 09/29/20 23:26 00:50 05:13 WBC RBC Hgb Hct MCV RDW Plt Count Lymph % (Auto) [place] % (Auto) Lymph # (Auto) [place] # (Auto) Seg Neutrophils % Seg Neuts % (Manual) Lymphocytes % (Manual) Seg Neutrophils # PT INR ABG pH POC ABG pCO2 POC ABG pO2 ABG pO2 ABG HCO3 ABG O2 Saturation ABG Base Excess ABG Oxyhemoglobin ABG Sodium ABG Potassium ABG Chloride ABG Glucose Sodium 164 H* Potassium Chloride 128.9 H Carbon Dioxide BUN 84 H Creatinine 3.1 H Glucose 125 H POC Glucose 121 H 116 H Lactic Acid Calcium Phosphorus AST Total Creatine Kinase Troponin T HDL Cholesterol Arterial Blood Glucose Arterial Blood Ionized Calcium Urine WBC (Auto) Urine Creatinine 09/29/20 09/29/20 09/29/20 07:24 07:24 11:25 WBC 17.2 H RBC Hgb 11.5 L Hct 35.1 L MCV RDW 16.0 H Plt Count 114 L Lymph % (Auto) [place] % (Auto) Lymph # (Auto) [place] # (Auto) Seg Neutrophils % Seg Neuts % (Manual) Lymphocytes % (Manual) Seg Neutrophils # PT INR ABG pH POC ABG pCO2 POC ABG pO2 ABG pO2 ABG HCO3 ABG O2 Saturation ABG Base Excess ABG Oxyhemoglobin ABG Sodium ABG Potassium ABG Chloride ABG Glucose Sodium 167 H* Potassium Chloride 133.5 H Carbon Dioxide BUN 95 H Creatinine 3.1 H Glucose 157 H POC Glucose 118 H Lactic Acid Calcium Phosphorus AST Total Creatine Kinase Troponin T HDL Cholesterol Arterial Blood Glucose Arterial Blood Ionized Calcium Urine WBC (Auto) Urine Creatinine 09/29/20 09/29/20 09/29/20 12:52 18:12 21:16 WBC RBC Hgb Hct MCV RDW Plt Count Lymph % (Auto) [place] % (Auto) Lymph # (Auto) [place] # (Auto) Seg Neutrophils % Seg Neuts % (Manual) Lymphocytes % (Manual) Seg Neutrophils # PT INR ABG pH POC ABG pCO2 POC ABG pO2 ABG pO2 ABG HCO3 ABG O2 Saturation ABG Base Excess ABG Oxyhemoglobin ABG Sodium ABG Potassium ABG Chloride ABG Glucose Sodium 167 H* 162 H* Potassium 3.5 L Chloride 133.3 H 126.6 H Carbon Dioxide BUN 93 H 92 H Creatinine 3.0 H 2.8 H Glucose 130 H 147 H POC Glucose 133 H Lactic Acid Calcium 8.3 L Phosphorus AST Total Creatine Kinase Troponin T HDL Cholesterol Arterial Blood Glucose Arterial Blood Ionized Calcium Urine WBC (Auto) Urine Creatinine 09/29/20 09/30/20 09/30/20 23:35 00:27 02:59 WBC RBC Hgb Hct MCV RDW Plt Count Lymph % (Auto) [place] % (Auto) Lymph # (Auto) [place] # (Auto) Seg Neutrophils % Seg Neuts % (Manual) Lymphocytes % (Manual) Seg Neutrophils # PT INR ABG pH POC ABG pCO2 28.6 L POC ABG pO2 70.4 L ABG pO2 ABG HCO3 ABG O2 Saturation ABG Base Excess ABG Oxyhemoglobin 93.7 L ABG Sodium 158.6 H ABG Potassium 3.3 L ABG Chloride 127.0 H ABG Glucose 167 H Sodium 162 H* Potassium 3.5 L Chloride 127.6 H Carbon Dioxide 21 L BUN 87 H Creatinine 2.7 H Glucose 147 H POC Glucose 117 H Lactic Acid Calcium Phosphorus AST Total Creatine Kinase Troponin T HDL Cholesterol Arterial Blood Glucose 167 H Arterial Blood Ionized Calcium Urine WBC (Auto) Urine Creatinine 09/30/20 09/30/20 09/30/20 04:40 05:13 05:25 WBC RBC Hgb Hct MCV RDW Plt Count Lymph % (Auto) [place] % (Auto) Lymph # (Auto) [place] # (Auto) Seg Neutrophils % Seg Neuts % (Manual) Lymphocytes % (Manual) Seg Neutrophils # PT INR ABG pH POC ABG pCO2 POC ABG pO2 ABG pO2 ABG HCO3 ABG O2 Saturation ABG Base Excess ABG Oxyhemoglobin ABG Sodium ABG Potassium ABG Chloride ABG Glucose Sodium 162 H* Potassium Chloride 127.2 H Carbon Dioxide 20 L BUN 89 H Creatinine 2.8 H Glucose 132 H POC Glucose 43 L 143 H Lactic Acid Calcium 8.1 L Phosphorus AST Total Creatine Kinase Troponin T HDL Cholesterol Arterial Blood Glucose Arterial Blood Ionized Calcium Urine WBC (Auto) Urine Creatinine
--- NOTE | 2020-09-30 12:43 | Progress Note ---
Assessment and Plan Assessment and Plan Assessment and plan: This is a 50-year-old male with heart failure and hypertension who presents to the emergency department on 09/21 with cardiac arrest after syncopal episode about 45 minutes prior to arrival to the emergency department. Upon arrival to the emergency department patient was found to be hypotensive and subsequently started on pressors with significant improvement in his blood pressure. Work-up in the emergency department reveals lactic acidosis, initial troponin within normal limits however subsequent troponins were elevated, no obvious ischemic changes on EKG, UDS positive for marijuana, urinalysis significant for urinary tract infection, BUN/creatinine slightly elevated . CXR showed severe cardiomegaly with mild interstitial pulmonary edema. Patient was admitted to the hospital service with consults to CCM, cardiology and nephrology s/p cardiac arrest, UTI, JAMEY, lactic acidosis and hypotension. -MRI reviewed concerning for anoxic brain injury -09/20 CXR shows cardiomegaly -09/21 echocardiogram shows severely dilated left ventricle, , LVEF 10 to 15%, -Renal ultrasound dystrophic kidney -09/23 CT head shows loss of reyna-white differentiation diffusely likely due to diffuse cerebral edema, without hemorrhage. Evaluation limited by artifact -09/23 Bilateral carotid ultrasound < 50% bilateral #S/p cardiac arrest Acute hypoxic respiratory failure Acute toxic and anoxic encephalopathy #Acute kidney injury with underlying ATN -80/2.9---89/2.8 #Sepsis #Cardiomyopathy left ejection fraction of 10 to 15% #Acute cystitis #Leukocytosis #Hypernatremia- Persistent #Coagulopathic #Transaminitis likely secondary to sepsis #Hyperchloremia #Metabolic acidosis #Lactic acidosis #Hypertension over all Prognosis is poor GI/DVT prophylaxis: PPI, heparin subcu, SCDs to bilateral lower extremities while in bed Disposition: ICU PLAN 1- EEG 2-Correct electrolytes abnormalites,NA#162 Over all prognosis is poor, 3- Treat underlying infection 4-No sedation will follow Subjective Date of service: 09/30/20 Principal diagnosis: Acute respiratory failure Interval history: Status is unchanged unresponsive off sedation for X 2 days no witnessed seizure hypernatremia #166 BUN/Cr.#89/2.8 -EEG is not done Objective - Vital Sign Vital Signs - 12hr 09/30/20 09/30/20 09/30/20 01:00 01:30 02:00 Temperature Pulse Rate 71 70 70 Respiratory 29 H 28 H 26 H Rate Blood Pressure 110/64 109/66 114/69 O2 Sat by Pulse 97 Oximetry 09/30/20 09/30/20 09/30/20 02:30 03:00 03:21 Temperature Pulse Rate 72 75 73 Respiratory 26 H 27 H Rate Blood Pressure 106/63 120/55 120/55 O2 Sat by Pulse 99 97 Oximetry 09/30/20 09/30/20 09/30/20 03:29 03:31 03:39 Temperature 100.2 F H Pulse Rate 73 75 Respiratory 28 H Rate Blood Pressure 129/66 129/66 O2 Sat by Pulse 92 97 Oximetry 09/30/20 09/30/20 09/30/20 04:00 04:31 05:00 Temperature Pulse Rate 77 73 73 Respiratory 29 H 27 H 28 H Rate Blood Pressure 121/64 118/68 122/76 O2 Sat by Pulse 98 99 98 Oximetry 09/30/20 09/30/20 09/30/20 05:30 06:01 06:30 Temperature Pulse Rate 71 78 78 Respiratory 27 H 28 H 28 H Rate Blood Pressure 119/72 115/73 123/72 O2 Sat by Pulse 99 99 100 Oximetry 09/30/20 09/30/20 09/30/20 06:55 06:56 07:00 Temperature Pulse Rate 83 81 76 Respiratory 26 H Rate Blood Pressure 123/72 123/72 123/72 O2 Sat by Pulse 100 Oximetry 09/30/20 09/30/20 09/30/20 07:30 07:51 08:00 Temperature 98.8 F Pulse Rate 65 63 62 Respiratory 27 H 26 H Rate Blood Pressure 106/63 106/63 112/62 O2 Sat by Pulse 97 100 97 Oximetry 09/30/20 09/30/20 09/30/20 08:31 09:00 09:21 Temperature Pulse Rate 64 64 65 Respiratory 27 H 27 H Rate Blood Pressure 110/61 102/59 102/59 O2 Sat by Pulse 98 98 Oximetry 09/30/20 09/30/20 09/30/20 09:30 09:31 10:00 Temperature Pulse Rate 66 67 64 Respiratory 26 H 28 H 26 H Rate Blood Pressure 105/63 126/71 105/63 O2 Sat by Pulse 99 99 99 Oximetry 09/30/20 09/30/20 10:30 12:05 Temperature Pulse Rate 64 66 Respiratory 26 H 26 H Rate Blood Pressure 107/63 118/67 O2 Sat by Pulse 100 96 Oximetry - General Apperance Constitutional: comfortable - EENT EENT: PERRL, mucous membranes moist - Respiratory Respiratory: chest non-tender, lungs clear, crackles - Cardiovascular Cardiovascular: regular rate, normal S1, normal S2 Extremities: no peripheral edema bilat - Gastrointestinal Gastrointestinal: normoactive bowel sounds - Integumentary Integumentary: normal - Neurologic Cranial nerve examination: anosmic, other (pupils reactive , EOM is intact he is with slight spontaneous breathing over ridding the vent. no movment to pain stmuli) - Laboratory Findings CBC and BMP: 09/29/20 07:24 09/30/20 04:40 Abnormal Lab Findings: Abnormal Labs 09/20/20 09/20/20 09/20/20 23:02 23:02 23:02 WBC RBC Hgb Hct MCV 96 H RDW 15.8 H Plt Count Lymph % (Auto) Phillips % (Auto) Lymph # (Auto) Phillips # (Auto) Seg Neutrophils % Seg Neuts % (Manual) 34.0 L Lymphocytes % (Manual) 57.0 H Seg Neutrophils # PT INR 1.14 H ABG pH POC ABG pCO2 POC ABG pO2 ABG pO2 ABG HCO3 ABG O2 Saturation ABG Base Excess ABG Oxyhemoglobin ABG Sodium ABG Potassium ABG Chloride ABG Glucose Sodium Potassium Chloride Carbon Dioxide 21 L BUN 26 H Creatinine 2.1 H Glucose 227 H POC Glucose Lactic Acid Calcium 10.3 H Phosphorus AST 59 H Total Creatine Kinase Troponin T HDL Cholesterol Arterial Blood Glucose Arterial Blood Ionized Calcium Urine WBC (Auto) Urine Creatinine 09/20/20 09/20/20 09/21/20 23:15 23:35 01:20 WBC RBC Hgb Hct MCV RDW Plt Count Lymph % (Auto) Phillips % (Auto) Lymph # (Auto) Phillips # (Auto) Seg Neutrophils % Seg Neuts % (Manual) Lymphocytes % (Manual) Seg Neutrophils # PT INR ABG pH POC ABG pCO2 POC ABG pO2 ABG pO2 ABG HCO3 ABG O2 Saturation ABG Base Excess ABG Oxyhemoglobin ABG Sodium ABG Potassium ABG Chloride ABG Glucose Sodium Potassium Chloride Carbon Dioxide BUN Creatinine Glucose POC Glucose 197 H Lactic Acid 8.70 H* Calcium Phosphorus AST Total Creatine Kinase Troponin T HDL Cholesterol Arterial Blood Glucose Arterial Blood Ionized Calcium Urine WBC (Auto) 47.0 H Urine Creatinine 09/21/20 09/21/20 09/21/20 02:01 02:15 04:25 WBC RBC Hgb Hct MCV RDW Plt Count Lymph % (Auto) Phillips % (Auto) Lymph # (Auto) Phillips # (Auto) Seg Neutrophils % Seg Neuts % (Manual) Lymphocytes % (Manual) Seg Neutrophils # PT INR ABG pH 7.258 L POC ABG pCO2 POC ABG pO2 ABG pO2 244.1 H ABG HCO3 17.7 L ABG O2 Saturation 99.4 H ABG Base Excess -8.8 L ABG Oxyhemoglobin ABG Sodium ABG Potassium ABG Chloride ABG Glucose Sodium Potassium Chloride Carbon Dioxide BUN Creatinine Glucose POC Glucose 65 L Lactic Acid Calcium Phosphorus AST Total Creatine Kinase Troponin T 0.865 H* D HDL Cholesterol 60 H Arterial Blood Glucose Arterial Blood Ionized Calcium Urine WBC (Auto) Urine Creatinine 09/21/20 09/21/20 09/21/20 04:34 04:34 07:03 WBC RBC Hgb 16.9 H D Hct 51.3 H D MCV RDW Plt Count Lymph % (Auto) Phillips % (Auto) Lymph # (Auto) Phillips # (Auto) Seg Neutrophils % Seg Neuts % (Manual) Lymphocytes % (Manual) Seg Neutrophils # PT INR ABG pH POC ABG pCO2 POC ABG pO2 ABG pO2 ABG HCO3 ABG O2 Saturation ABG Base Excess ABG Oxyhemoglobin ABG Sodium ABG Potassium ABG Chloride ABG Glucose Sodium Potassium Chloride Carbon Dioxide BUN Creatinine Glucose POC Glucose Lactic Acid 3.00 H* Calcium Phosphorus AST Total Creatine Kinase Troponin T 1.880 H* D HDL Cholesterol Arterial Blood Glucose Arterial Blood Ionized Calcium Urine WBC (Auto) Urine Creatinine 09/21/20 09/21/20 09/21/20 07:03 07:32 07:53 WBC 19.2 H RBC 5.31 H Hgb 16.0 H Hct 49.0 H MCV RDW 15.7 H Plt Count Lymph % (Auto) Phillips % (Auto) Lymph # (Auto) Phillips # (Auto) Seg Neutrophils % Seg Neuts % (Manual) Lymphocytes % (Manual) Seg Neutrophils # PT 16.3 H INR 1.31 H ABG pH POC ABG pCO2 POC ABG pO2 ABG pO2 ABG HCO3 ABG O2 Saturation ABG Base Excess ABG Oxyhemoglobin ABG Sodium ABG Potassium ABG Chloride ABG Glucose Sodium Potassium Chloride Carbon Dioxide BUN Creatinine Glucose POC Glucose 60 L Lactic Acid Calcium Phosphorus AST Total Creatine Kinase Troponin T HDL Cholesterol Arterial Blood Glucose Arterial Blood Ionized Calcium Urine WBC (Auto) Urine Creatinine 09/21/20 09/21/20 09/21/20 07:53 09:30 10:08 WBC RBC Hgb Hct MCV RDW Plt Count Lymph % (Auto) Phillips % (Auto) Lymph # (Auto) Phillips # (Auto) Seg Neutrophils % Seg Neuts % (Manual) Lymphocytes % (Manual) Seg Neutrophils # PT 15.4 H INR 1.24 H ABG pH POC ABG pCO2 POC ABG pO2 ABG pO2 ABG HCO3 ABG O2 Saturation ABG Base Excess ABG Oxyhemoglobin ABG Sodium ABG Potassium ABG Chloride ABG Glucose Sodium 146 H Potassium 3.5 L Chloride 109.6 H Carbon Dioxide 20 L BUN 37 H Creatinine 2.8 H Glucose 127 H POC Glucose Lactic Acid 3.00 H* Calcium Phosphorus AST Total Creatine Kinase Troponin T HDL Cholesterol Arterial Blood Glucose Arterial Blood Ionized Calcium Urine WBC (Auto) Urine Creatinine 09/21/20 09/21/20 09/21/20 10:34 11:22 11:44 WBC RBC Hgb Hct MCV RDW Plt Count Lymph % (Auto) Phillips % (Auto) Lymph # (Auto) Phillips # (Auto) Seg Neutrophils % Seg Neuts % (Manual) Lymphocytes % (Manual) Seg Neutrophils # PT INR ABG pH POC ABG pCO2 25.9 L POC ABG pO2 196.9 H ABG pO2 ABG HCO3 ABG O2 Saturation ABG Base Excess ABG Oxyhemoglobin 98.4 H ABG Sodium ABG Potassium 3.3 L ABG Chloride 113.0 H ABG Glucose 130 H Sodium Potassium Chloride Carbon Dioxide BUN Creatinine Glucose POC Glucose 126 H 127 H Lactic Acid Calcium Phosphorus AST Total Creatine Kinase Troponin T HDL Cholesterol Arterial Blood Glucose 130 H Arterial Blood Ionized Calcium Urine WBC (Auto) Urine Creatinine 09/21/20 09/21/20 09/21/20 14:27 14:27 15:09 WBC RBC Hgb Hct MCV RDW Plt Count Lymph % (Auto) Phillips % (Auto) Lymph # (Auto) Phillips # (Auto) Seg Neutrophils % Seg Neuts % (Manual) Lymphocytes % (Manual) Seg Neutrophils # PT INR ABG pH POC ABG pCO2 POC ABG pO2 ABG pO2 ABG HCO3 ABG O2 Saturation ABG Base Excess ABG Oxyhemoglobin ABG Sodium ABG Potassium ABG Chloride ABG Glucose Sodium Potassium Chloride Carbon Dioxide BUN Creatinine Glucose POC Glucose 135 H Lactic Acid Calcium Phosphorus AST Total Creatine Kinase Troponin T HDL Cholesterol Arterial Blood Glucose Arterial Blood Ionized Calcium Urine WBC (Auto) 12.0 H Urine Creatinine 60.4 H 09/21/20 09/21/20 09/21/20 15:54 15:54 16:13 WBC RBC Hgb Hct MCV RDW Plt Count Lymph % (Auto) Phillips % (Auto) Lymph # (Auto) Phillips # (Auto) Seg Neutrophils % Seg Neuts % (Manual) Lymphocytes % (Manual) Seg Neutrophils # PT INR ABG pH POC ABG pCO2 POC ABG pO2 ABG pO2 ABG HCO3 ABG O2 Saturation ABG Base Excess ABG Oxyhemoglobin ABG Sodium ABG Potassium ABG Chloride ABG Glucose Sodium Potassium Chloride Carbon Dioxide BUN Creatinine Glucose POC Glucose 131 H Lactic Acid 3.60 H* Calcium Phosphorus AST Total Creatine Kinase 3606 H Troponin T HDL Cholesterol Arterial Blood Glucose Arterial Blood Ionized Calcium Urine WBC (Auto) Urine Creatinine 09/21/20 09/21/20 09/21/20 18:02 19:48 20:57 WBC RBC Hgb Hct MCV RDW Plt Count Lymph % (Auto) Phillips % (Auto) Lymph # (Auto) Phillips # (Auto) Seg Neutrophils % Seg Neuts % (Manual) Lymphocytes % (Manual) Seg Neutrophils # PT INR ABG pH POC ABG pCO2 POC ABG pO2 ABG pO2 ABG HCO3 ABG O2 Saturation ABG Base Excess ABG Oxyhemoglobin ABG Sodium ABG Potassium ABG Chloride ABG Glucose Sodium Potassium Chloride Carbon Dioxide BUN Creatinine Glucose POC Glucose 139 H 184 H 173 H Lactic Acid Calcium Phosphorus AST Total Creatine Kinase Troponin T HDL Cholesterol Arterial Blood Glucose Arterial Blood Ionized Calcium Urine WBC (Auto) Urine Creatinine 09/21/20 09/21/20 09/21/20 22:02 22:27 23:54 WBC RBC Hgb Hct MCV RDW Plt Count Lymph % (Auto) Phillips % (Auto) Lymph # (Auto) Phillips # (Auto) Seg Neutrophils % Seg Neuts % (Manual) Lymphocytes % (Manual) Seg Neutrophils # PT INR ABG pH POC ABG pCO2 POC ABG pO2 ABG pO2 ABG HCO3 ABG O2 Saturation ABG Base Excess ABG Oxyhemoglobin ABG Sodium ABG Potassium ABG Chloride ABG Glucose Sodium Potassium Chloride Carbon Dioxide BUN Creatinine Glucose POC Glucose 147 H 142 H 143 H Lactic Acid Calcium Phosphorus AST Total Creatine Kinase Troponin T HDL Cholesterol Arterial Blood Glucose Arterial Blood Ionized Calcium Urine WBC (Auto) Urine Creatinine 09/22/20 09/22/20 09/22/20 00:49 02:01 02:14 WBC RBC Hgb Hct MCV RDW Plt Count Lymph % (Auto) Phillips % (Auto) Lymph # (Auto) Phillips # (Auto) Seg Neutrophils % Seg Neuts % (Manual) Lymphocytes % (Manual) Seg Neutrophils # PT INR ABG pH POC ABG pCO2 POC ABG pO2 ABG pO2 ABG HCO3 ABG O2 Saturation ABG Base Excess ABG Oxyhemoglobin ABG Sodium ABG Potassium ABG Chloride ABG Glucose Sodium Potassium Chloride Carbon Dioxide BUN Creatinine Glucose POC Glucose 154 H 154 H 149 H Lactic Acid Calcium Phosphorus AST Total Creatine Kinase Troponin T HDL Cholesterol Arterial Blood Glucose Arterial Blood Ionized Calcium Urine WBC (Auto) Urine Creatinine 09/22/20 09/22/20 09/22/20 02:57 03:21 03:58 WBC RBC Hgb Hct MCV RDW Plt Count Lymph % (Auto) Phillips % (Auto) Lymph # (Auto) Phillips # (Auto) Seg Neutrophils % Seg Neuts % (Manual) Lymphocytes % (Manual) Seg Neutrophils # PT INR ABG pH 7.496 H POC ABG pCO2 25.0 L POC ABG pO2 73.8 L ABG pO2 ABG HCO3 ABG O2 Saturation ABG Base Excess ABG Oxyhemoglobin ABG Sodium ABG Potassium ABG Chloride 115.0 H ABG Glucose 154 H Sodium Potassium Chloride Carbon Dioxide BUN Creatinine Glucose POC Glucose 166 H 158 H Lactic Acid Calcium Phosphorus AST Total Creatine Kinase Troponin T HDL Cholesterol Arterial Blood Glucose 154 H Arterial Blood Ionized Calcium 4.5 L Urine WBC (Auto) Urine Creatinine 09/22/20 09/22/20 09/22/20 05:06 05:56 06:50 WBC RBC Hgb Hct MCV RDW Plt Count Lymph % (Auto) Phillips % (Auto) Lymph # (Auto) Phillips # (Auto) Seg Neutrophils % Seg Neuts % (Manual) Lymphocytes % (Manual) Seg Neutrophils # PT INR ABG pH POC ABG pCO2 POC ABG pO2 ABG pO2 ABG HCO3 ABG O2 Saturation ABG Base Excess ABG Oxyhemoglobin ABG Sodium ABG Potassium ABG Chloride ABG Glucose Sodium Potassium Chloride Carbon Dioxide BUN Creatinine Glucose POC Glucose 147 H 145 H 137 H Lactic Acid Calcium Phosphorus AST Total Creatine Kinase Troponin T HDL Cholesterol Arterial Blood Glucose Arterial Blood Ionized Calcium Urine WBC (Auto) Urine Creatinine 09/22/20 09/22/20 09/22/20 08:02 08:26 08:26 WBC 15.2 H RBC Hgb Hct MCV RDW 16.0 H Plt Count Lymph % (Auto) 7.6 L Phillips % (Auto) Lymph # (Auto) Phillips # (Auto) 1.0 H Seg Neutrophils % 86.0 H Seg Neuts % (Manual) Lymphocytes % (Manual) Seg Neutrophils # 13.0 H PT 15.5 H INR 1.25 H ABG pH POC ABG pCO2 POC ABG pO2 ABG pO2 ABG HCO3 ABG O2 Saturation ABG Base Excess ABG Oxyhemoglobin ABG Sodium ABG Potassium ABG Chloride ABG Glucose Sodium Potassium Chloride Carbon Dioxide BUN Creatinine Glucose POC Glucose 149 H Lactic Acid Calcium Phosphorus AST Total Creatine Kinase Troponin T HDL Cholesterol Arterial Blood Glucose Arterial Blood Ionized Calcium Urine WBC (Auto) Urine Creatinine 09/22/20 09/22/20 09/22/20 08:26 12:04 15:55 WBC RBC Hgb Hct MCV RDW Plt Count Lymph % (Auto) Phillips % (Auto) Lymph # (Auto) Phillips # (Auto) Seg Neutrophils % Seg Neuts % (Manual) Lymphocytes % (Manual) Seg Neutrophils # PT INR ABG pH POC ABG pCO2 POC ABG pO2 ABG pO2 ABG HCO3 ABG O2 Saturation ABG Base Excess ABG Oxyhemoglobin ABG Sodium ABG Potassium ABG Chloride ABG Glucose Sodium 146 H Potassium 3.5 L Chloride 114.0 H Carbon Dioxide 18 L BUN 46 H Creatinine 3.7 H Glucose 134 H POC Glucose 138 H 123 H Lactic Acid Calcium 7.7 L Phosphorus AST Total Creatine Kinase Troponin T HDL Cholesterol Arterial Blood Glucose Arterial Blood Ionized Calcium Urine WBC (Auto) Urine Creatinine 09/22/20 09/22/20 09/23/20 21:57 23:41 03:30 WBC 14.2 H RBC Hgb Hct MCV RDW 16.5 H Plt Count 126 L Lymph % (Auto) 8.2 L Phillips % (Auto) 7.8 H Lymph # (Auto) Phillips # (Auto) 1.1 H Seg Neutrophils % 83.8 H Seg Neuts % (Manual) Lymphocytes % (Manual) Seg Neutrophils # 11.9 H PT INR ABG pH POC ABG pCO2 POC ABG pO2 ABG pO2 ABG HCO3 ABG O2 Saturation ABG Base Excess ABG Oxyhemoglobin ABG Sodium ABG Potassium ABG Chloride ABG Glucose Sodium Potassium Chloride Carbon Dioxide BUN Creatinine Glucose POC Glucose 124 H 130 H Lactic Acid Calcium Phosphorus AST Total Creatine Kinase Troponin T HDL Cholesterol Arterial Blood Glucose Arterial Blood Ionized Calcium Urine WBC (Auto) Urine Creatinine 09/23/20 09/23/20 09/23/20 03:30 03:45 12:33 WBC RBC Hgb Hct MCV RDW Plt Count Lymph % (Auto) Phillips % (Auto) Lymph # (Auto) Phillips # (Auto) Seg Neutrophils % Seg Neuts % (Manual) Lymphocytes % (Manual) Seg Neutrophils # PT INR ABG pH POC ABG pCO2 POC ABG pO2 ABG pO2 ABG HCO3 ABG O2 Saturation ABG Base Excess ABG Oxyhemoglobin ABG Sodium ABG Potassium ABG Chloride ABG Glucose Sodium Potassium Chloride 110.4 H Carbon Dioxide 19 L BUN 56 H Creatinine 4.7 H Glucose 148 H POC Glucose 132 H 139 H Lactic Acid Calcium 7.4 L Phosphorus 5.80 H D AST Total Creatine Kinase Troponin T HDL Cholesterol Arterial Blood Glucose Arterial Blood Ionized Calcium Urine WBC (Auto) Urine Creatinine 09/23/20 09/23/20 09/24/20 17:54 23:18 02:57 WBC RBC Hgb Hct MCV RDW Plt Count Lymph % (Auto) Phillips % (Auto) Lymph # (Auto) Phillips # (Auto) Seg Neutrophils % Seg Neuts % (Manual) Lymphocytes % (Manual) Seg Neutrophils # PT INR ABG pH POC ABG pCO2 30.0 L POC ABG pO2 75.1 L ABG pO2 ABG HCO3 ABG O2 Saturation ABG Base Excess ABG Oxyhemoglobin ABG Sodium 149.5 H ABG Potassium ABG Chloride 119.0 H ABG Glucose 144 H Sodium Potassium Chloride Carbon Dioxide BUN Creatinine Glucose POC Glucose 115 H 139 H Lactic Acid Calcium Phosphorus AST Total Creatine Kinase Troponin T HDL Cholesterol Arterial Blood Glucose 144 H Arterial Blood Ionized Calcium Urine WBC (Auto) Urine Creatinine 09/24/20 09/24/20 09/24/20 04:20 04:30 05:10 WBC 14.3 H RBC Hgb Hct MCV RDW 16.6 H Plt Count 135 L Lymph % (Auto) 5.9 L Phillips % (Auto) Lymph # (Auto) 0.8 L Phillips # (Auto) 0.9 H Seg Neutrophils % 87.5 H Seg Neuts % (Manual) Lymphocytes % (Manual) Seg Neutrophils # 12.5 H PT INR ABG pH POC ABG pCO2 POC ABG pO2 ABG pO2 ABG HCO3 ABG O2 Saturation ABG Base Excess ABG Oxyhemoglobin ABG Sodium ABG Potassium ABG Chloride ABG Glucose Sodium 147 H Potassium Chloride 114.4 H Carbon Dioxide 19 L BUN 50 H Creatinine 3.2 H Glucose 142 H POC Glucose 137 H Lactic Acid Calcium 8.3 L Phosphorus AST Total Creatine Kinase Troponin T HDL Cholesterol Arterial Blood Glucose Arterial Blood Ionized Calcium Urine WBC (Auto) Urine Creatinine 09/24/20 09/24/20 09/24/20 12:03 17:39 23:15 WBC RBC Hgb Hct MCV RDW Plt Count Lymph % (Auto) Phillips % (Auto) Lymph # (Auto) Phillips # (Auto) Seg Neutrophils % Seg Neuts % (Manual) Lymphocytes % (Manual) Seg Neutrophils # PT INR ABG pH POC ABG pCO2 POC ABG pO2 ABG pO2 ABG HCO3 ABG O2 Saturation ABG Base Excess ABG Oxyhemoglobin ABG Sodium ABG Potassium ABG Chloride ABG Glucose Sodium Potassium Chloride Carbon Dioxide BUN Creatinine Glucose POC Glucose 120 H 155 H 109 H Lactic Acid Calcium Phosphorus AST Total Creatine Kinase Troponin T HDL Cholesterol Arterial Blood Glucose Arterial Blood Ionized Calcium Urine WBC (Auto) Urine Creatinine 09/25/20 09/25/20 09/25/20 03:02 05:16 07:50 WBC 14.0 H RBC Hgb Hct MCV RDW 16.5 H Plt Count Lymph % (Auto) 6.7 L Phillips % (Auto) 9.1 H Lymph # (Auto) 0.9 L Phillips # (Auto) 1.3 H Seg Neutrophils % 84.1 H Seg Neuts % (Manual) Lymphocytes % (Manual) Seg Neutrophils # 11.8 H PT INR ABG pH POC ABG pCO2 POC ABG pO2 67.4 L ABG pO2 ABG HCO3 ABG O2 Saturation ABG Base Excess ABG Oxyhemoglobin 92.3 L ABG Sodium 157.3 H ABG Potassium ABG Chloride 125.0 H ABG Glucose 147 H Sodium Potassium Chloride Carbon Dioxide BUN Creatinine Glucose POC Glucose 126 H Lactic Acid Calcium Phosphorus AST Total Creatine Kinase Troponin T HDL Cholesterol Arterial Blood Glucose 147 H Arterial Blood Ionized Calcium Urine WBC (Auto) Urine Creatinine 09/25/20 09/25/20 09/25/20 07:50 11:56 14:50 WBC RBC Hgb Hct MCV RDW Plt Count Lymph % (Auto) Phillips % (Auto) Lymph # (Auto) Phillips # (Auto) Seg Neutrophils % Seg Neuts % (Manual) Lymphocytes % (Manual) Seg Neutrophils # PT INR ABG pH POC ABG pCO2 POC ABG pO2 ABG pO2 ABG HCO3 ABG O2 Saturation ABG Base Excess ABG Oxyhemoglobin ABG Sodium ABG Potassium ABG Chloride ABG Glucose Sodium 160 H D 160 H Potassium Chloride 124.2 H Carbon Dioxide BUN 54 H Creatinine 2.8 H Glucose 124 H POC Glucose 109 H Lactic Acid Calcium 8.3 L Phosphorus AST Total Creatine Kinase Troponin T HDL Cholesterol Arterial Blood Glucose Arterial Blood Ionized Calcium Urine WBC (Auto) Urine Creatinine 09/25/20 09/25/20 09/25/20 18:02 19:45 23:02 WBC RBC Hgb Hct MCV RDW Plt Count Lymph % (Auto) Phillips % (Auto) Lymph # (Auto) Phillips # (Auto) Seg Neutrophils % Seg Neuts % (Manual) Lymphocytes % (Manual) Seg Neutrophils # PT INR ABG pH POC ABG pCO2 POC ABG pO2 ABG pO2 ABG HCO3 ABG O2 Saturation ABG Base Excess ABG Oxyhemoglobin ABG Sodium ABG Potassium ABG Chloride ABG Glucose Sodium 162 H* 160 H Potassium Chloride Carbon Dioxide BUN Creatinine Glucose POC Glucose 113 H Lactic Acid Calcium Phosphorus AST Total Creatine Kinase Troponin T HDL Cholesterol Arterial Blood Glucose Arterial Blood Ionized Calcium Urine WBC (Auto) Urine Creatinine 09/25/20 09/26/20 09/26/20 23:17 03:30 04:17 WBC 13.9 H RBC Hgb Hct MCV RDW 16.2 H Plt Count 133 L Lymph % (Auto) 7.4 L Phillips % (Auto) 11.2 H Lymph # (Auto) 1.0 L Phillips # (Auto) 1.6 H Seg Neutrophils % 81.0 H Seg Neuts % (Manual) Lymphocytes % (Manual) Seg Neutrophils # 11.3 H PT INR ABG pH 7.472 H POC ABG pCO2 31.1 L POC ABG pO2 56.5 L ABG pO2 ABG HCO3 ABG O2 Saturation ABG Base Excess ABG Oxyhemoglobin 91.3 L ABG Sodium 159.9 H ABG Potassium ABG Chloride 129.0 H ABG Glucose 135 H Sodium Potassium Chloride Carbon Dioxide BUN Creatinine Glucose POC Glucose 119 H Lactic Acid Calcium Phosphorus AST Total Creatine Kinase Troponin T HDL Cholesterol Arterial Blood Glucose 135 H Arterial Blood Ionized Calcium Urine WBC (Auto) Urine Creatinine 09/26/20 09/26/20 09/26/20 04:17 05:34 11:44 WBC RBC Hgb Hct MCV RDW Plt Count Lymph % (Auto) Phillips % (Auto) Lymph # (Auto) Phillips # (Auto) Seg Neutrophils % Seg Neuts % (Manual) Lymphocytes % (Manual) Seg Neutrophils # PT INR ABG pH POC ABG pCO2 POC ABG pO2 ABG pO2 ABG HCO3 ABG O2 Saturation ABG Base Excess ABG Oxyhemoglobin ABG Sodium ABG Potassium ABG Chloride ABG Glucose Sodium 162 H* Potassium Chloride 128.4 H Carbon Dioxide BUN 56 H Creatinine 2.5 H Glucose 128 H POC Glucose 135 H 141 H Lactic Acid Calcium Phosphorus 2.00 L D AST Total Creatine Kinase Troponin T HDL Cholesterol Arterial Blood Glucose Arterial Blood Ionized Calcium Urine WBC (Auto) Urine Creatinine 09/26/20 09/26/20 09/26/20 12:12 13:38 17:46 WBC RBC Hgb Hct MCV RDW Plt Count Lymph % (Auto) Phillips % (Auto) Lymph # (Auto) Phillips # (Auto) Seg Neutrophils % Seg Neuts % (Manual) Lymphocytes % (Manual) Seg Neutrophils # PT INR ABG pH POC ABG pCO2 POC ABG pO2 ABG pO2 ABG HCO3 ABG O2 Saturation ABG Base Excess ABG Oxyhemoglobin ABG Sodium ABG Potassium ABG Chloride ABG Glucose Sodium 160 H Potassium Chloride 127.2 H Carbon Dioxide BUN 60 H Creatinine 2.5 H Glucose 137 H POC Glucose 119 H Lactic Acid Calcium Phosphorus AST Total Creatine Kinase Troponin T HDL Cholesterol Arterial Blood Glucose Arterial Blood Ionized Calcium Urine WBC (Auto) 8.0 H Urine Creatinine 09/26/20 09/27/20 09/27/20 22:25 00:01 00:30 WBC RBC Hgb Hct MCV RDW Plt Count Lymph % (Auto) Phillips % (Auto) Lymph # (Auto) Phillips # (Auto) Seg Neutrophils % Seg Neuts % (Manual) Lymphocytes % (Manual) Seg Neutrophils # PT INR ABG pH POC ABG pCO2 POC ABG pO2 ABG pO2 ABG HCO3 ABG O2 Saturation ABG Base Excess ABG Oxyhemoglobin ABG Sodium ABG Potassium ABG Chloride ABG Glucose Sodium 161 H* 163 H* Potassium Chloride 129.3 H Carbon Dioxide BUN 61 H Creatinine 2.6 H Glucose 146 H POC Glucose 156 H Lactic Acid Calcium Phosphorus AST Total Creatine Kinase Troponin T HDL Cholesterol Arterial Blood Glucose Arterial Blood Ionized Calcium Urine WBC (Auto) Urine Creatinine 09/27/20 09/27/20 09/27/20 03:18 04:40 04:40 WBC 13.8 H RBC Hgb Hct MCV RDW 15.9 H Plt Count 123 L Lymph % (Auto) 7.8 L Phillips % (Auto) 10.2 H Lymph # (Auto) 1.1 L Phillips # (Auto) 1.4 H Seg Neutrophils % 81.5 H Seg Neuts % (Manual) Lymphocytes % (Manual) Seg Neutrophils # 11.2 H PT INR ABG pH POC ABG pCO2 POC ABG pO2 70.0 L ABG pO2 ABG HCO3 ABG O2 Saturation ABG Base Excess ABG Oxyhemoglobin ABG Sodium 160.6 H ABG Potassium ABG Chloride 130.0 H ABG Glucose 139 H Sodium 162 H* Potassium Chloride 128.9 H Carbon Dioxide BUN 63 H Creatinine 2.6 H Glucose 128 H POC Glucose Lactic Acid Calcium 8.3 L Phosphorus AST Total Creatine Kinase Troponin T HDL Cholesterol Arterial Blood Glucose 139 H Arterial Blood Ionized Calcium Urine WBC (Auto) Urine Creatinine 09/27/20 09/27/20 09/27/20 05:55 10:15 11:33 WBC RBC Hgb Hct MCV RDW Plt Count Lymph % (Auto) Phillips % (Auto) Lymph # (Auto) Phillips # (Auto) Seg Neutrophils % Seg Neuts % (Manual) Lymphocytes % (Manual) Seg Neutrophils # PT INR ABG pH POC ABG pCO2 POC ABG pO2 ABG pO2 ABG HCO3 ABG O2 Saturation ABG Base Excess ABG Oxyhemoglobin ABG Sodium ABG Potassium ABG Chloride ABG Glucose Sodium 164 H* Potassium 3.5 L Chloride 131.3 H Carbon Dioxide BUN 63 H Creatinine 2.7 H Glucose 147 H POC Glucose 116 H 131 H Lactic Acid Calcium Phosphorus AST Total Creatine Kinase Troponin T HDL Cholesterol Arterial Blood Glucose Arterial Blood Ionized Calcium Urine WBC (Auto) Urine Creatinine 09/27/20 09/28/2021 17:21 00:10 03:20 WBC RBC Hgb Hct MCV RDW Plt Count Lymph % (Auto) Phillips % (Auto) Lymph # (Auto) Phillips # (Auto) Seg Neutrophils % Seg Neuts % (Manual) Lymphocytes % (Manual) Seg Neutrophils # PT INR ABG pH POC ABG pCO2 30.0 L POC ABG pO2 72.7 L ABG pO2 ABG HCO3 ABG O2 Saturation ABG Base Excess ABG Oxyhemoglobin ABG Sodium 159.8 H ABG Potassium ABG Chloride 131.0 H ABG Glucose 156 H Sodium Potassium Chloride Carbon Dioxide BUN Creatinine Glucose POC Glucose 151 H 125 H Lactic Acid Calcium Phosphorus AST Total Creatine Kinase Troponin T HDL Cholesterol Arterial Blood Glucose 156 H Arterial Blood Ionized Calcium Urine WBC (Auto) Urine Creatinine 09/28/20 09/28/20 09/28/20 04:29 04:29 05:16 WBC 16.7 H RBC Hgb Hct MCV RDW 16.4 H Plt Count 123 L Lymph % (Auto) 6.6 L Phillips % (Auto) Lymph # (Auto) 1.1 L Phillips # (Auto) 1.1 H Seg Neutrophils % 86.5 H Seg Neuts % (Manual) Lymphocytes % (Manual) Seg Neutrophils # 14.4 H PT INR ABG pH POC ABG pCO2 POC ABG pO2 ABG pO2 ABG HCO3 ABG O2 Saturation ABG Base Excess ABG Oxyhemoglobin ABG Sodium ABG Potassium ABG Chloride ABG Glucose Sodium 162 H* Potassium Chloride 128.7 H Carbon Dioxide 21 L BUN 73 H Creatinine 2.8 H Glucose 166 H POC Glucose 135 H Lactic Acid Calcium Phosphorus AST Total Creatine Kinase Troponin T HDL Cholesterol Arterial Blood Glucose Arterial Blood Ionized Calcium Urine WBC (Auto) Urine Creatinine 09/28/20 09/28/20 09/28/20 12:01 12:51 17:43 WBC RBC Hgb Hct MCV RDW Plt Count Lymph % (Auto) Phillips % (Auto) Lymph # (Auto) Phillips # (Auto) Seg Neutrophils % Seg Neuts % (Manual) Lymphocytes % (Manual) Seg Neutrophils # PT INR ABG pH POC ABG pCO2 POC ABG pO2 ABG pO2 ABG HCO3 ABG O2 Saturation ABG Base Excess ABG Oxyhemoglobin ABG Sodium ABG Potassium ABG Chloride ABG Glucose Sodium 161 H* Potassium Chloride 129.8 H Carbon Dioxide 20 L BUN 80 H Creatinine 2.9 H Glucose 139 H POC Glucose 115 H 119 H Lactic Acid Calcium 8.3 L Phosphorus AST Total Creatine Kinase Troponin T HDL Cholesterol Arterial Blood Glucose Arterial Blood Ionized Calcium Urine WBC (Auto) Urine Creatinine 09/28/20 09/29/20 09/29/20 23:26 00:50 05:13 WBC RBC Hgb Hct MCV RDW Plt Count Lymph % (Auto) Phillips % (Auto) Lymph # (Auto) Phillips # (Auto) Seg Neutrophils % Seg Neuts % (Manual) Lymphocytes % (Manual) Seg Neutrophils # PT INR ABG pH POC ABG pCO2 POC ABG pO2 ABG pO2 ABG HCO3 ABG O2 Saturation ABG Base Excess ABG Oxyhemoglobin ABG Sodium ABG Potassium ABG Chloride ABG Glucose Sodium 164 H* Potassium Chloride 128.9 H Carbon Dioxide BUN 84 H Creatinine 3.1 H Glucose 125 H POC Glucose 121 H 116 H Lactic Acid Calcium Phosphorus AST Total Creatine Kinase Troponin T HDL Cholesterol Arterial Blood Glucose Arterial Blood Ionized Calcium Urine WBC (Auto) Urine Creatinine 09/29/20 09/29/20 09/29/20 07:24 07:24 11:25 WBC 17.2 H RBC Hgb 11.5 L Hct 35.1 L MCV RDW 16.0 H Plt Count 114 L Lymph % (Auto) Phillips % (Auto) Lymph # (Auto) Phillips # (Auto) Seg Neutrophils % Seg Neuts % (Manual) Lymphocytes % (Manual) Seg Neutrophils # PT INR ABG pH POC ABG pCO2 POC ABG pO2 ABG pO2 ABG HCO3 ABG O2 Saturation ABG Base Excess ABG Oxyhemoglobin ABG Sodium ABG Potassium ABG Chloride ABG Glucose Sodium 167 H* Potassium Chloride 133.5 H Carbon Dioxide BUN 95 H Creatinine 3.1 H Glucose 157 H POC Glucose 118 H Lactic Acid Calcium Phosphorus AST Total Creatine Kinase Troponin T HDL Cholesterol Arterial Blood Glucose Arterial Blood Ionized Calcium Urine WBC (Auto) Urine Creatinine 09/29/20 09/29/20 09/29/20 12:52 18:12 21:16 WBC RBC Hgb Hct MCV RDW Plt Count Lymph % (Auto) Phillips % (Auto) Lymph # (Auto) Phillips # (Auto) Seg Neutrophils % Seg Neuts % (Manual) Lymphocytes % (Manual) Seg Neutrophils # PT INR ABG pH POC ABG pCO2 POC ABG pO2 ABG pO2 ABG HCO3 ABG O2 Saturation ABG Base Excess ABG Oxyhemoglobin ABG Sodium ABG Potassium ABG Chloride ABG Glucose Sodium 167 H* 162 H* Potassium 3.5 L Chloride 133.3 H 126.6 H Carbon Dioxide BUN 93 H 92 H Creatinine 3.0 H 2.8 H Glucose 130 H 147 H POC Glucose 133 H Lactic Acid Calcium 8.3 L Phosphorus AST Total Creatine Kinase Troponin T HDL Cholesterol Arterial Blood Glucose Arterial Blood Ionized Calcium Urine WBC (Auto) Urine Creatinine 09/29/20 09/30/20 09/30/20 23:35 00:27 02:59 WBC RBC Hgb Hct MCV RDW Plt Count Lymph % (Auto) Phillips % (Auto) Lymph # (Auto) Phillips # (Auto) Seg Neutrophils % Seg Neuts % (Manual) Lymphocytes % (Manual) Seg Neutrophils # PT INR ABG pH POC ABG pCO2 28.6 L POC ABG pO2 70.4 L ABG pO2 ABG HCO3 ABG O2 Saturation ABG Base Excess ABG Oxyhemoglobin 93.7 L ABG Sodium 158.6 H ABG Potassium 3.3 L ABG Chloride 127.0 H ABG Glucose 167 H Sodium 162 H* Potassium 3.5 L Chloride 127.6 H Carbon Dioxide 21 L BUN 87 H Creatinine 2.7 H Glucose 147 H POC Glucose 117 H Lactic Acid Calcium Phosphorus AST Total Creatine Kinase Troponin T HDL Cholesterol Arterial Blood Glucose 167 H Arterial Blood Ionized Calcium Urine WBC (Auto) Urine Creatinine 09/30/20 09/30/20 09/30/20 04:40 05:13 05:25 WBC RBC Hgb Hct MCV RDW Plt Count Lymph % (Auto) Phillips % (Auto) Lymph # (Auto) Phillips # (Auto) Seg Neutrophils % Seg Neuts % (Manual) Lymphocytes % (Manual) Seg Neutrophils # PT INR ABG pH POC ABG pCO2 POC ABG pO2 ABG pO2 ABG HCO3 ABG O2 Saturation ABG Base Excess ABG Oxyhemoglobin ABG Sodium ABG Potassium ABG Chloride ABG Glucose Sodium 162 H* Potassium Chloride 127.2 H Carbon Dioxide 20 L BUN 89 H Creatinine 2.8 H Glucose 132 H POC Glucose 43 L 143 H Lactic Acid Calcium 8.1 L Phosphorus AST Total Creatine Kinase Troponin T HDL Cholesterol Arterial Blood Glucose Arterial Blood Ionized Calcium Urine WBC (Auto) Urine Creatinine
--- NOTE | 2020-09-30 13:31 | Progress Note ---
Assessment and Plan Assessment S/p Cardiac arrest Acute hypoxic Respiratory failure JAMEY likely 2/2 ischemic ATN, cardiac arrest Cardiomyopathy, EF 10-15% Acute toxic and anoxic metabolic encephalopathy Sepsis Hyperchloremia Transaminitis Hypotension Plan: Renal function reviewed, SCr level was 2.8 today, yesterday's SCr level was 2.8, non-oliguric No acute indication for HD today Pt with persistent hypernatremia, per neursurgery note no ICP, started on D5W infusion at 50 ml/hr on 09/26/20 Most recent serum Na level was 162 today, yesterday's serum Na level was 162 Increase D5W infusion to 175 ml/hr for hypernatremia, pt non-polyuric, unlikely DI Continue free water 300 ml via orogastric tube q 4 hrs for hypernatremia Neurology evaluated pt, ordered EEG for concern of anoxic brain injury, f/u recs Renally dose medications Strict [place] Catheter: Yes Intake= 5520 ml Output= 2450 ml (Net= 3070 ml) Renal plan reviewed by Dr Tee Subjective Date of service: 09/30/20 Principal diagnosis: Acute respiratory failure Interval history: Pt seen in ICU intubated on ventilator Objective - Vital Signs Vital signs: Vital Signs - 12hr 09/30/20 09/30/20 09/30/20 01:00 01:30 02:00 Temperature Pulse Rate 71 70 70 Respiratory 29 H 28 H 26 H Rate Blood Pressure 110/64 109/66 114/69 O2 Sat by Pulse 97 Oximetry 09/30/20 09/30/20 09/30/20 02:30 03:00 03:21 Temperature Pulse Rate 72 75 73 Respiratory 26 H 27 H Rate Blood Pressure 106/63 120/55 120/55 O2 Sat by Pulse 99 97 Oximetry 09/30/20 09/30/20 09/30/20 03:29 03:31 03:39 Temperature 100.2 F H Pulse Rate 73 75 Respiratory 28 H Rate Blood Pressure 129/66 129/66 O2 Sat by Pulse 92 97 Oximetry 09/30/20 09/30/20 09/30/20 04:00 04:31 05:00 Temperature Pulse Rate 77 73 73 Respiratory 29 H 27 H 28 H Rate Blood Pressure 121/64 118/68 122/76 O2 Sat by Pulse 98 99 98 Oximetry 09/30/20 09/30/2021 05:30 06:01 06:30 Temperature Pulse Rate 71 78 78 Respiratory 27 H 28 H 28 H Rate Blood Pressure 119/72 115/73 123/72 O2 Sat by Pulse 99 99 100 Oximetry 09/30/20 09/30/20 09/30/20 06:55 06:56 07:00 Temperature Pulse Rate 83 81 76 Respiratory 26 H Rate Blood Pressure 123/72 123/72 123/72 O2 Sat by Pulse 100 Oximetry 09/30/20 09/30/20 09/30/20 07:30 07:51 08:00 Temperature 98.8 F Pulse Rate 65 63 62 Respiratory 27 H 26 H Rate Blood Pressure 106/63 106/63 112/62 O2 Sat by Pulse 97 100 97 Oximetry 09/30/20 09/30/20 09/30/20 08:31 09:00 09:21 Temperature Pulse Rate 64 64 65 Respiratory 27 H 27 H Rate Blood Pressure 110/61 102/59 102/59 O2 Sat by Pulse 98 98 Oximetry 09/30/20 09/30/20 09/30/20 09:30 09:31 10:00 Temperature Pulse Rate 66 67 64 Respiratory 26 H 28 H 26 H Rate Blood Pressure 105/63 126/71 105/63 O2 Sat by Pulse 99 99 99 Oximetry 09/30/20 09/30/20 10:30 12:05 Temperature Pulse Rate 64 66 Respiratory 26 H 26 H Rate Blood Pressure 107/63 118/67 O2 Sat by Pulse 100 96 Oximetry - General Appearance General appearance: intubated EENT: ATNC Neck: no JVD Respiratory: Present: Decreased Breath Sounds Cardiology: regular, S1S2 Gastrointestinal: normoactive bowel sounds (orogastric tube intact) Integumentary: warm and dry Neurologic: other (intubated) Musculoskeletal: other (trace edema to BLE) - Lab 09/29/20 07:24 09/30/20 04:40 Most recent lab results ABG pH 7.446 (7.320-7.450) 09/30/20 02:59 ABG pCO2 40.5 mm Hg 09/21/20 02:15 ABG pO2 244.1 mm Hg (80.0-90.0) H 09/21/20 02:15 ABG HCO3 17.7 mmol/L (20.0-26.0) L 09/21/20 02:15 ABG O2 Saturation 94.6 (0-100) 09/30/20 02:59 Calcium 8.1 mg/dL (8.4-10.2) L 09/30/20 04:40 Phosphorus 2.50 mg/dL (2.5-4.5) D 09/27/20 04:40 Urine Creatinine 60.4 mg/dL (0.1-20.0) H 09/21/20 14:27 Urine Sodium 108 mmol/L 09/21/20 14:27 Medications & Allergies - Medications Allergies/Adverse Reactions: Allergies No Known Allergies Allergy (Unverified 09/20/20 23:08) Home Medications: Home Medications Medication Instructions Recorded Confirmed Last Taken Type Furosemide [Lasix] 40 mg PO QDAY 09/21/20 09/21/20 Unknown History Simvastatin 20 mg PO QDAY 09/21/20 09/21/20 Unknown History amLODIPine [Norvasc] 5 mg PO DAILY 09/21/20 09/21/20 Unknown History carvediloL [Coreg] 25 mg PO BID 09/21/20 09/21/20 Unknown History lisinopriL [Zestril TAB] 40 mg PO QDAY 09/21/20 09/21/20 Unknown History Active Medications: Generic Name Dose Route Start Last Admin Trade Name Freq PRN Reason Stop Dose Admin Acetaminophen 650 mg 09/21/20 15:51 09/29/20 04:00 Acetaminophen 325 Mg/10.15 Ml Oral Liqd Unit Dose FEEDTUBE 650 mg Q6H PRN Administration Pain, Mild (1-3) Lipase/Protease/Amylase 1 each 09/25/20 14:22 Lipase 10,500/Protease 25,000/Amylase 43,750 (Units) Dr Greer FEEDTUBE PRN PRN For Clogged Feeding Tube Aspirin 325 mg 09/21/20 16:00 09/30/20 09:21 Aspirin 325 Mg Tab PO 325 mg QDAY PATSY Administration Atorvastatin Calcium 40 mg 09/23/20 22:00 09/29/20 21:58 Atorvastatin 40 Mg Tab PO 40 mg QHS PATSY Administration Dextrose 0 ml 09/30/20 05:37 09/30/20 05:57 Dextrose 50% In Water (25gm) 50 Ml Syringe IV 50 ml Q30MIN PRN Administration Hypoglycemia Protocol Famotidine 20 mg 09/25/20 10:00 09/30/20 09:21 Famotidine 20 Mg Tab PO 20 mg DAILY PATSY Administration Heparin Sodium (Porcine) 5,000 unit 09/21/20 22:00 09/30/20 09:21 Heparin 5,000 Unit/1 Ml Vial SUB-Q 5,000 unit Q12HR PATSY Administration Hydralazine HCl 5 mg 09/23/20 14:00 09/30/20 09:21 Hydralazine 20 Mg/1 Ml Inj IV 5 mg Q4HR PATSY Administration Hydrophilic Ointment 1 applic 09/20/20 22:59 Lip Therapy Vaseline TP Q2HR PRN Dry Lips Norepinephrine 4 mg in 250 mls @ 7.5 mls/hr 09/21/20 05:00 Levophed Drip 4 Mg/Ns 250 Ml IV TITR PATSY Protocol 2 MCG/MIN Fentanyl Citrate 2,000 mcg in 100 mls @ 5.105 mls/hr 09/22/20 11:30 09/25/20 18:17 Fentanyl Drip Premix IV 0 mcg/kg/hr TITR PATSY 0 mls/hr Titration Protocol 1 MCG/KG/HR Dextrose 1,000 mls @ 150 mls/hr 09/29/20 14:00 09/30/20 05:57 D5w IV 150 mls/hr DIRECT PATSY Administration Metoprolol Tartrate 50 mg 09/27/20 18:00 09/30/20 06:56 Metoprolol Tartrate 50 Mg Tab PO Not Given Q6HR [facility] Multi-Ingred Cream/Lotion/Oil/Oint 1 applic 09/20/20 22:59 Mineral Oil/Petrolatum, White Ophth Oint 3.5 Gm OU Q4HR PRN Dry Eye(s) Ondansetron HCl 4 mg 09/21/20 01:24 Ondansetron 4 Mg/2 Ml Inj IV Q8H PRN Nausea And Vomiting Simple Syrup 15 ml 09/25/20 14:22 Simple Syrup 15 Ml FEEDTUBE PRN PRN Hypoglycemia Simple Syrup 30 ml 09/25/20 14:22 Simple Syrup 15 Ml FEEDTUBE PRN PRN Hypoglycemia Sodium Bicarbonate 325 mg 09/25/20 14:22 Sodium Bicarbonate 325 Mg Tab FEEDTUBE PRN PRN For Clogged Feeding Tube Sodium Chloride 10 ml 09/21/20 10:00 09/29/20 21:58 Sodium Chloride 0.9% 10 Ml Flush Syringe IV 10 ml BID PATSY Administration Sodium Chloride 10 ml 09/21/20 01:24 09/24/20 18:21 Sodium Chloride 0.9% 10 Ml Flush Syringe IV 10 ml PRN PRN Administration LINE FLUSH
[2020-09-30 14:24] LABS: Calcium 8.2 mg/dL (8.4-10.2)
[2020-09-30] MEDS ORDERED: VANCOMYCIN 2,000 MG in SODIUM CHLORIDE 0.9% 500 ML 500 ML IV ONE (16:00)
[2020-09-30 21:04] LABS: Calcium 8.4 mg/dL (8.4-10.2)
[2020-10-01] MEDS: METOPROLOL TARTRATE 50 MG TAB PO SCH ×4 (01:26→17:43)
[2020-10-01] MEDS: DEXTROSE 5% IN WATER 1,000 ML IV SCH ×3 (02:29→19:40)
[2020-10-01] MEDS: hydrALAZINE 20 MG/1 ML INJ IV SCH ×6 (02:30→21:56)
[2020-10-01 05:01] LABS: Hematocrit 35.2 % (35.5-45.6); Hemoglobin 11.7 gm/dl (11.8-15.2); Mean Corpuscular HGB Conc 33 % (32-34); Mean Corpuscular Volume 94 fl (84-94); Platelet Count 107 K/mm3 (140-440); Red Blood Count 3.76 M/mm3 (3.65-5.03); Red Cell Distribution Width 15.1 % (13.2-15.2)
[2020-10-01 05:09] LABS: Calcium 8.5 mg/dL (8.4-10.2)
[2020-10-01] MEDS ORDERED: POTASSIUM CHLORIDE 20 MEQ PACKET FEEDTUBE ONE (08:57)
--- NOTE | 2020-10-01 09:02 | Progress Note ---
Assessment and Plan Assessment S/p Cardiac arrest Acute hypoxic Respiratory failure JAMEY likely 2/2 ischemic ATN, cardiac arrest Cardiomyopathy, EF 10-15% Acute toxic and anoxic metabolic encephalopathy Sepsis Hyperchloremia Transaminitis Hypotension Plan: Renal function reviewed, SCr level was 2.1 today, yesterday's SCr level was 2.3- 2.8, non-oliguric No acute indication for HD today Pt with persistent hypernatremia, per neursurgery note no ICP Most recent serum Na level was 155 today, yesterday's serum Na level was 155-162 On D5W infusion to 175 ml/hr for hypernatremia, pt non-polyuric, unlikely DI Continue free water 300 ml via orogastric tube q 4 hrs for hypernatremia Check serum Na level q 8 hrs for now Neurology evaluated pt, ordered EEG for concern of anoxic brain injury, f/u recs Replete potassium Check magnesium and repeat K+ level at 1400 today Renally dose medications Strict [place] Catheter: Yes Intake= 3250 ml Output= 2550 ml (Net= 700 ml) Renal plan reviewed by Dr Tee Subjective Date of service: 10/01/20 Principal diagnosis: Acute respiratory failure Interval history: Pt seen in ICU intubated on ventilator Objective - Vital Signs Vital signs: Vital Signs - 12hr 09/30/20 09/30/20 09/30/20 20:31 21:00 21:09 Temperature Pulse Rate 79 74 76 Pulse Rate [ From Monitor] Respiratory 26 H 26 H 26 H Rate Blood Pressure 106/70 106/57 106/57 O2 Sat by Pulse 98 97 98 Oximetry 09/30/20 09/30/20 09/30/20 21:30 21:55 22:00 Temperature Pulse Rate 76 79 77 Pulse Rate [ From Monitor] Respiratory 25 H 26 H Rate Blood Pressure 105/63 105/63 110/65 O2 Sat by Pulse 97 96 Oximetry 09/30/20 09/30/20 09/30/20 22:30 23:00 23:31 Temperature Pulse Rate 77 80 76 Pulse Rate [ From Monitor] Respiratory 25 H 27 H 25 H Rate Blood Pressure 111/67 111/67 111/67 O2 Sat by Pulse 97 95 87 Oximetry 09/30/20 10/01/20 10/01/20 23:57 00:00 00:01 Temperature 99.1 F Pulse Rate 77 79 Pulse Rate [ 74 From Monitor] Respiratory 25 H Rate Blood Pressure 107/67 107/67 O2 Sat by Pulse 98 93 Oximetry 10/01/20 10/01/20 10/01/20 00:31 01:01 01:26 Temperature Pulse Rate 76 81 76 Pulse Rate [ From Monitor] Respiratory 27 H 27 H Rate Blood Pressure 107/67 109/72 107/67 O2 Sat by Pulse 96 95 Oximetry 10/01/20 10/01/20 10/01/20 01:30 02:01 02:30 Temperature Pulse Rate 80 78 78 Pulse Rate [ From Monitor] Respiratory 27 H 26 H Rate Blood Pressure 109/72 109/67 109/67 O2 Sat by Pulse 96 97 Oximetry 10/01/20 10/01/20 10/01/20 02:31 03:00 03:23 Temperature Pulse Rate 78 79 80 Pulse Rate [ From Monitor] Respiratory 26 H 27 H Rate Blood Pressure 109/67 108/64 108/64 O2 Sat by Pulse 97 97 97 Oximetry 10/01/20 10/01/20 10/01/20 03:31 04:00 04:01 Temperature 98.9 F Pulse Rate 80 81 78 Pulse Rate [ 81 From Monitor] Respiratory 28 H 27 H Rate Blood Pressure 108/64 109/64 O2 Sat by Pulse 97 97 Oximetry 10/01/20 10/01/20 10/01/20 04:30 05:00 05:31 Temperature Pulse Rate 79 82 82 Pulse Rate [ From Monitor] Respiratory 27 H 28 H 28 H Rate Blood Pressure 109/64 112/67 112/67 O2 Sat by Pulse 97 98 98 Oximetry 10/01/20 10/01/20 10/01/20 06:00 06:31 07:00 Temperature 99.5 F Pulse Rate 84 79 83 Pulse Rate [ From Monitor] Respiratory 25 H 27 H 28 H Rate Blood Pressure 110/69 110/69 102/59 O2 Sat by Pulse 98 97 97 Oximetry 10/01/20 07:36 Temperature Pulse Rate 84 Pulse Rate [ From Monitor] Respiratory Rate Blood Pressure 102/59 O2 Sat by Pulse 98 Oximetry - General Appearance General appearance: intubated EENT: ATNC Neck: no JVD Respiratory: Present: Decreased Breath Sounds (intubated) Cardiology: regular, S1S2 Gastrointestinal: normoactive bowel sounds (orogastric tube intact) Integumentary: warm and dry Neurologic: other (intubated) Musculoskeletal: other (trace edema to BLE) - Lab 10/01/20 04:15 10/01/20 04:15 Most recent lab results ABG pH 7.445 (7.320-7.450) 10/01/20 00:11 ABG pCO2 40.5 mm Hg 09/21/20 02:15 ABG pO2 244.1 mm Hg (80.0-90.0) H 09/21/20 02:15 ABG HCO3 17.7 mmol/L (20.0-26.0) L 09/21/20 02:15 ABG O2 Saturation 96.5 (0-100) 10/01/20 00:11 Calcium 8.5 mg/dL (8.4-10.2) 10/01/20 04:15 Phosphorus 2.50 mg/dL (2.5-4.5) D 09/27/20 04:40 Urine Creatinine 60.4 mg/dL (0.1-20.0) H 09/21/20 14:27 Urine Sodium 108 mmol/L 09/21/20 14:27 Medications & Allergies - Medications Allergies/Adverse Reactions: Allergies No Known Allergies Allergy (Unverified 09/20/20 23:08) Home Medications: Home Medications Medication Instructions Recorded Confirmed Last Taken Type Furosemide [Lasix] 40 mg PO QDAY 09/21/20 09/21/20 Unknown History Simvastatin 20 mg PO QDAY 09/21/20 09/21/20 Unknown History amLODIPine [Norvasc] 5 mg PO DAILY 09/21/20 09/21/20 Unknown History carvediloL [Coreg] 25 mg PO BID 09/21/20 09/21/20 Unknown History lisinopriL [Zestril TAB] 40 mg PO QDAY 09/21/20 09/21/20 Unknown History Active Medications: Generic Name Dose Route Start Last Admin Trade Name Freq PRN Reason Stop Dose Admin Acetaminophen 650 mg 09/21/20 15:51 09/29/20 04:00 Acetaminophen 325 Mg/10.15 Ml Oral Liqd Unit Dose FEEDTUBE 650 mg Q6H PRN Administration Pain, Mild (1-3) Lipase/Protease/Amylase 1 each 09/25/20 14:22 Lipase 10,500/Protease 25,000/Amylase 43,750 (Units) Dr Greer FEEDTUBE PRN PRN For Clogged Feeding Tube Aspirin 325 mg 09/21/20 16:00 09/30/20 09:21 Aspirin 325 Mg Tab PO 325 mg QDAY PATSY Administration Atorvastatin Calcium 40 mg 09/23/20 22:00 09/30/20 23:03 Atorvastatin 40 Mg Tab PO 40 mg QHS PATSY Administration Dextrose 0 ml 09/30/20 05:37 09/30/20 05:57 Dextrose 50% In Water (25gm) 50 Ml Syringe IV 50 ml Q30MIN PRN Administration Hypoglycemia Protocol Famotidine 20 mg 09/25/20 10:00 09/30/20 09:21 Famotidine 20 Mg Tab PO 20 mg DAILY PATSY Administration Heparin Sodium (Porcine) 5,000 unit 09/21/20 22:00 09/30/20 23:03 Heparin 5,000 Unit/1 Ml Vial SUB-Q 5,000 unit Q12HR PATSY Administration Hydralazine HCl 5 mg 09/23/20 14:00 10/01/20 02:30 Hydralazine 20 Mg/1 Ml Inj IV Not Given Q4HR PATSY Hydrophilic Ointment 1 applic 09/20/20 22:59 Lip Therapy Vaseline TP Q2HR PRN Dry Lips Norepinephrine 4 mg in 250 mls @ 7.5 mls/hr 09/21/20 05:00 Levophed Drip 4 Mg/Ns 250 Ml IV TITR PATSY Protocol 2 MCG/MIN Fentanyl Citrate 2,000 mcg in 100 mls @ 5.105 mls/hr 09/22/20 11:30 09/25/20 18:17 Fentanyl Drip Premix IV 0 mcg/kg/hr TITR PATSY 0 mls/hr Titration Protocol 1 MCG/KG/HR Dextrose 1,000 mls @ 175 mls/hr 09/30/20 14:00 10/01/20 02:29 D5w IV 175 mls/hr DIRECT PATSY Administration Metoprolol Tartrate 50 mg 09/27/20 18:00 10/01/20 01:26 Metoprolol Tartrate 50 Mg Tab PO Not Given Q6HR PATSY Multi-Ingred Cream/Lotion/Oil/Oint 1 applic 09/20/20 22:59 Mineral Oil/Petrolatum, White Ophth Oint 3.5 Gm OU Q4HR PRN Dry Eye(s) Ondansetron HCl 4 mg 09/21/20 01:24 Ondansetron 4 Mg/2 Ml Inj IV Q8H PRN Nausea And Vomiting Simple Syrup 15 ml 09/25/20 14:22 Simple Syrup 15 Ml FEEDTUBE PRN PRN Hypoglycemia Simple Syrup 30 ml 09/25/20 14:22 Simple Syrup 15 Ml FEEDTUBE PRN PRN Hypoglycemia Sodium Bicarbonate 325 mg 09/25/20 14:22 Sodium Bicarbonate 325 Mg Tab FEEDTUBE PRN PRN For Clogged Feeding Tube Sodium Chloride 10 ml 09/21/20 10:00 09/30/20 23:04 Sodium Chloride 0.9% 10 Ml Flush Syringe IV 10 ml BID PATSY Administration Sodium Chloride 10 ml 09/21/20 01:24 09/24/20 18:21 Sodium Chloride 0.9% 10 Ml Flush Syringe IV 10 ml PRN PRN Administration LINE FLUSH
[2020-10-01] MEDS: HEPARIN 5,000 UNIT/1 ML VIAL SUB-Q SCH ×2 (09:57→21:58)
[2020-10-01] MEDS: ASPIRIN 325 MG TAB PO SCH (09:57)
[2020-10-01] MEDS: FAMOTIDINE 20 MG TAB PO SCH (09:58)
--- NOTE | 2020-10-01 11:04 | Progress Note ---
Assessment and Plan Assessment and plan: This is a 50-year-old male with heart failure and hypertension who presents to the emergency department on 09/21 with cardiac arrest after syncopal episode about 45 minutes prior to arrival to the emergency department. Upon arrival to the emergency department patient was found to be hypotensive and subsequently started on pressors with significant improvement in his blood pressure. Work-up in the emergency department reveals lactic acidosis, initial troponin within normal limits however subsequent troponins were elevated, no obvious ischemic changes on EKG, UDS positive for marijuana, urinalysis significant for urinary tract infection, BUN/creatinine slightly elevated 26/21. CXR showed severe ca rdiomegaly with mild interstitial pulmonary edema. Patient was admitted to the hospital service with consults to CCM, cardiology and nephrology s/p cardiac arrest, UTI, JAMEY, lactic acidosis and hypotension. MRI reviewed concerning for anoxic encephalopathy -CCM, cardiology, nephrology consulted, appreciate recommendations -s/p vasopressor support with Levophed, phenyl epinephrine, epinephrine -COVID 19 pcr (-) -Fentayl gtt -TF -09/20 CXR shows cardiomegaly -09/21 echocardiogram shows severely dilated left ventricle, the ventricle systolic function severely decreased, borderline concentric left ventricle hypertrophy, severe global hypokinesis of the left ventricle, LVEF 10 to 15%, mild MR, trace TR, RVSP is normal at 12 mmHg, trace pericardial effusion. -Accu-Cheks every 6 hours, SSI -Renal ultrasound pending -09/21 FENa calculated at 3.14 indicating ATN -09/21 CT head shows motion degradation of the image quality despite repeat imaging. However, there appears to be mild cerebral white matter disease as described without CT evidence of acute intracranial hemorrhage. -09/23 CT head shows loss of reyna-white differentiation diffusely likely due to diffuse cerebral edema, interval decrease in ventricular size size diffusely likely due to compression however no herniation identified, suspect developing infarct in the right occipital region without hemorrhage. Evaluation limited by artifact -09/23 MRI brain without contrast pending -09/23 MRA/MRV head without contrast pending -09/23 Bilateral carotid ultrasound pending -Hemoglobin A1c, hepatic panel pending -Trend CBC, BMP 09/22: Patient was started on a fentanyl drip and propofol drip was increased. At the time of my examination patient is on CMV tidal and 450, rate 20, PEEP 6 and FiO2 25%. Patient had a T-max of 101.9 overnight. Today we removed Park catheter and femoral CVL. Plan to obtain PICC/PIV. Started TF today. 09/23: CT head obtained yesterday shows diffuse cerebral edema and a new suspected developing infarct in the right occipital region. Patient has worsening renal function today and hyperphosphatemia. The time of my examination patient was on CMV tidal 450, rate 20, PEEP 625% FiO2 and sedated on fentanyl at 2 mcg. CCM to update family on the findings. CVA work-up ordered. Renal function worsened today. 09/24: Patient has hyponatremia, hypochloremia, metabolic acidosis, slightly improved renal function. CCM discussion with family today regarding prognosis. Remains sedated on fentanyl CMV TV 450, R 20, PEEP 6, FiO2 25%. Park was replaced for retention. 09/25: Mr. Avelar unfortunately remains unresponsive no pupillary reflex appreciated. Still with fever. Start empiric antibiotics and obtain cultures. Although fever could be central. Continue ventilatory support. MRI is concerning for anoxic encephalopathy with global edema. Patient with severe hypernatremia. Will obtain neurosurgery evaluation and also ID evaluation. Free water has been started by nephrology. Cardiology input appreciated. 09/26. No indication for head CT at this time as renal is improving per life insurance salesperson. ID input appreciated likely underlying sepsis. Antibiotics as recommended source felt to be secondary to UTI as chest x-ray is without evidence of consolidation. Repeat chest x-ray and urine analysis is pending work cultures are being followed. MRSA PCR is also pending. Patient not on vancomycin and cefepime renally adjusted. I had extensive discussion with the daughter and the father yesterday. Later in the day the patient was made a DNR. Advance care planning time 35 minutes 09/27: Antibiotics changes per ID. Vancomycin discontinued started on linezolid. Continue current management. Patient unfortunately still with profound encephalopathy. Monitor cultures. 09/28: Worsening Hypernatremia 161, Very poor prognosis, Pt with persistent hypernatremia, per neursurgery note no ICP, cont gentle D5W, can be increased by ICU team if needed PER Nephrogy Continue free water 300 ml via orogastric tube q 4 hrs for hypernatremia. Obtain NEUROLOGY EVAL Family made aware of clinical status EEG and Neurology consultation for prognostication 5/14: Worsening sodium level, Nephrology monitoring. fluid adjusted by Nephrology. Patient off sedation, fever persists despite antibitotics, awaiting family decision on hospice. Nurology evaluating 09/30: Despite antibiotics fever still persist. Sodium still elevated despite being on fluid replacement with free water. This all points to central catastrophic event as reflected by neurosurgery. We will continue current management while awaiting family decision. Unfortunate case for young man status. Will check a.m. labs. Will obtain CBC in a.m.. Continue pressure wound prevention techniques per SRGA protocol 10/01: Sodium improving with adjusted fluids. Continue supportive care. S/p cardiac arrest Acute hypoxic respiratory failure Acute toxic and anoxic metabolic encephalopathy Acute kidney injury with underlying ATN Sepsis Cardiomyopathy left ejection fraction of 10 to 15% Acute cystitis Leukocytosis Hypernatremia- Persistent Coagulopathic Transaminitis likely secondary to sepsis Hyperchloremia Metabolic acidosis Lactic acidosis Hypertension Prognosis is poor GI/DVT prophylaxis: PPI, heparin subcu, SCDs to bilateral lower extremities while in bed Disposition: ICU The high probability of a clinically significant, sudden or life threatening deterioration of the [multi] system(s) required my full and direct attention, intervention and personal management. The aggregate critical care time was [35] minutes. This time is in addition to time spent performing reported procedures but includes the following: [x] Data Review and interpretation [x] Patient assessment and monitoring of vital signs [x] Documentation [x] Medication orders and management History Interval history: Patient seen and examined nonresponsive, remains on the vent. Still with fever Hospitalist Physical - Physical exam Narrative exam: General appearance: Present: other (Unresponsive, on the vent) - EENT Eyes: Absent: PERRL ENT: clear oral mucosa - Neck Neck: Absent: masses or JVD, cervical LAD - Respiratory Respiratory effort: normal Respiratory: bilateral: CTA - Cardiovascular Rhythm: regular Heart Sounds: Present: S1 & S2. Tachycardia absent: systolic murmur, diastolic murmur - Extremities Extremities: no ischemia, pulses intact, pulses symmetrical, No edema, normal color Peripheral Pulses: within normal limits - Abdominal General gastrointestinal: soft, non-tender, non-distended, normal bowel sounds - Integumentary Integumentary: Present: warm, dry - Neurologic Neurologic: other (no response to painful stimuli, no cough/gag reflex) - Allied Health Allied health notes reviewed: nursing, RT - Constitutional Vitals: Temp Pulse Resp BP Pulse Ox 99.5 F 78 28 H 107/69 98 10/01/20 07:00 10/01/20 09:57 10/01/20 09:20 10/01/20 09:57 10/01/20 09:20 General appearance: Present: other (Unresponsive, on the vent) HEART Score - HEART Score Troponin: Troponin T 1.880 ng/mL (0.00-0.029) H* D 09/21/20 04:34 Results - Labs CBC & Chem 7: 10/01/20 04:15 10/01/20 04:15 Labs: Laboratory Last Values WBC 11.8 K/mm3 (4.5-11.0) H 10/01/20 04:15 RBC 3.76 M/mm3 (3.65-5.03) 10/01/20 04:15 Hgb 11.7 gm/dl (11.8-15.2) L 10/01/20 04:15 Hct 35.2 % (35.5-45.6) L 10/01/20 04:15 MCV 94 fl (84-94) 10/01/20 04:15 MCH 31 pg (28-32) 10/01/20 04:15 MCHC 33 % (32-34) 10/01/20 04:15 RDW 15.1 % (13.2-15.2) 10/01/20 04:15 Plt Count 107 K/mm3 (140-440) L 10/01/20 04:15 Lymph % (Auto) 6.6 % (13.4-35.0) L 09/28/20 04:29 Lamb % (Auto) 6.5 % (0.0-7.3) 09/28/20 04:29 Eos % (Auto) 0.1 % (0.0-4.3) 09/28/20 04:29 Baso % (Auto) 0.3 % (0.0-1.8) 09/28/20 04:29 Lymph # (Auto) 1.1 K/mm3 (1.2-5.4) L 09/28/20 04:29 Lamb # (Auto) 1.1 K/mm3 (0.0-0.8) H 09/28/20 04:29 Eos # (Auto) 0.0 K/mm3 (0.0-0.4) 09/28/20 04:29 Baso # (Auto) 0.0 K/mm3 (0.0-0.1) 09/28/20 04:29 Add Manual Diff Complete 09/20/20 23:02 Total Counted 100 09/20/20 23:02 Seg Neutrophils % 86.5 % (40.0-70.0) H 09/28/20 04:29 Seg Neuts % (Manual) 34.0 % (40.0-70.0) L 09/20/20 23:02 Lymphocytes % (Manual) 57.0 % (13.4-35.0) H 09/20/20 23:02 Monocytes % (Manual) 6.0 % (0.0-7.3) 09/20/20 23:02 Eosinophils % (Manual) 2.0 % (0.0-4.3) 09/20/20 23:02 Basophils % (Manual) 1.0 % (0.0-1.8) 09/20/20 23:02 Nucleated RBC % Not Reportable 09/20/20 23:02 Seg Neutrophils # 14.4 K/mm3 (1.8-7.7) H 09/28/20 04:29 Seg Neutrophils # Man 1.9 K/mm3 (1.8-7.7) 09/20/20 23:02 Band Neutrophils # 0.0 K/mm3 09/20/20 23:02 Lymphocytes # (Manual) 3.2 K/mm3 (1.2-5.4) 09/20/20 23:02 Abs React Lymphs (Man) 0.0 K/mm3 09/20/20 23:02 Monocytes # (Manual) 0.3 K/mm3 (0.0-0.8) 09/20/20 23:02 Eosinophils # (Manual) 0.1 K/mm3 (0.0-0.4) 09/20/20 23:02 Basophils # (Manual) 0.1 K/mm3 (0.0-0.1) 09/20/20 23:02 Metamyelocytes # 0.0 K/mm3 09/20/20 23:02 Myelocytes # 0.0 K/mm3 09/20/20 23:02 Promyelocytes # 0.0 K/mm3 09/20/20 23:02 Blast Cells # 0.0 K/mm3 09/20/20 23:02 WBC Morphology Not Reportable 09/20/20 23:02 Hypersegmented Neuts Not Reportable 09/20/20 23:02 Hyposegmented Neuts Not Reportable 09/20/20 23:02 Hypogranular Neuts Not Reportable 09/20/20 23:02 Smudge Cells Not Reportable 09/20/20 23:02 Toxic Granulation Not Reportable 09/20/20 23:02 Toxic Vacuolation Not Reportable 09/20/20 23:02 Dohle Bodies Not Reportable 09/20/20 23:02 Pelger-Huet Anomaly Not Reportable 09/20/20 23:02 Santosh Rods Not Reportable 09/20/20 23:02 Platelet Estimate Not Reportable 09/20/20 23:02 Clumped Platelets Not Reportable 09/20/20 23:02 Plt Clumps, EDTA Not Reportable 09/20/20 23:02 Large Platelets Not Reportable 09/20/20 23:02 Giant Platelets Not Reportable 09/20/20 23:02 Platelet Satelliting Not Reportable 09/20/20 23:02 Plt Morphology Comment Not Reportable 09/20/20 23:02 RBC Morphology Normal 09/20/20 23:02 Dimorphic RBCs Not Reportable 09/20/20 23:02 Polychromasia Not Reportable 09/20/20 23:02 Hypochromasia Not Reportable 09/20/20 23:02 Poikilocytosis Not Reportable 09/20/20 23:02 Anisocytosis Not Reportable 09/20/20 23:02 Microcytosis Not Reportable 09/20/20 23:02 Macrocytosis Not Reportable 09/20/20 23:02 Spherocytes Not Reportable 09/20/20 23:02 Pappenheimer Bodies Not Reportable 09/20/20 23:02 Sickle Cells Not Reportable 09/20/20 23:02 Target Cells Not Reportable 09/20/20 23:02 Tear Drop Cells Not Reportable 09/20/20 23:02 Ovalocytes Not Reportable 09/20/20 23:02 Helmet Cells Not Reportable 09/20/20 23:02 [place] Bodies Not Reportable 09/20/20 23:02 Glide Rings Not Reportable 09/20/20 23:02 Melly Cells Not Reportable 09/20/20 23:02 Bite Cells Not Reportable 09/20/20 23:02 Crenated Cell Not Reportable 09/20/20 23:02 Elliptocytes Not Reportable 09/20/20 23:02 Acanthocytes (Spur) Not Reportable 09/20/20 23:02 Rouleaux Not Reportable 09/20/20 23:02 Hemoglobin C Crystals Not Reportable 09/20/20 23:02 Schistocytes Not Reportable 09/20/20 23:02 Malaria parasites Not Reportable 09/20/20 23:02 Eduardo Bodies Not Reportable 09/20/20 23:02 Hem Pathologist Commnt No 09/20/20 23:02 PT 15.5 Sec. (12.2-14.9) H 09/22/20 08:26 INR 1.25 (0.87-1.13) H 09/22/20 08:26 APTT 30.6 Sec. (24.2-36.6) 09/21/20 10:08 ABG pH 7.445 (7.320-7.450) 10/01/20 00:11 POC ABG pCO2 30.6 mmHg (32.0-48.0) L 10/01/20 00:11 ABG pCO2 40.5 mm Hg 09/21/20 02:15 POC ABG pO2 83.9 mmHg (83-108) 10/01/20 00:11 ABG pO2 244.1 mm Hg (80.0-90.0) H 09/21/20 02:15 POC ABG HCO3 20.6 10/01/20 00:11 ABG HCO3 17.7 mmol/L (20.0-26.0) L 09/21/20 02:15 ABG O2 Saturation 96.5 (0-100) 10/01/20 00:11 ABG O2 Content 24.2 (0.0-44) 09/21/20 02:15 POC ABG Base Excess -2.7 10/01/20 00:11 ABG Base Excess -8.8 mmol/L (-2.0-3.0) L 09/21/20 02:15 ABG Hemoglobin 11.5 (12.0-17.5) L 10/01/20 00:11 ABG Oxyhemoglobin 95.7 (94-98) 10/01/20 00:11 ABG Carboxyhemoglobin 1.3 % (0.0-5.0) 09/21/20 02:15 ABG Methemoglobin 0.3 (0.0-1.5) 10/01/20 00:11 ABG Sodium 156.2 mmol/L (136.0-145.0) H 10/01/20 00:11 ABG Potassium 3.3 mmol/L (3.40-4.50) L 10/01/20 00:11 ABG Chloride 124.0 mmol/L (98-107) H 10/01/20 00:11 ABG Glucose 156 mg/dL (65-95) H 10/01/20 00:11 Oxyhemoglobin 97.4 % (95.0-99.0) 09/21/20 02:15 Carboxyhemoglobin 0.5 (0.5-1.5) 10/01/20 00:11 FiO2 21 % 09/21/20 02:15 FiO2 % 35.0 10/01/20 00:11 Sodium 155 mmol/L (137-145) H 10/01/20 04:15 Potassium 3.4 mmol/L (3.6-5.0) L 10/01/20 04:15 Chloride 123.1 mmol/L (98-107) H 10/01/20 04:15 Carbon Dioxide 21 mmol/L (22-30) L 10/01/20 04:15 Anion Gap 14 mmol/L 10/01/20 04:15 BUN 77 mg/dL (9-20) H 10/01/20 04:15 Creatinine 2.1 mg/dL (0.8-1.3) H 10/01/20 04:15 Estimated GFR 41 ml/min 10/01/20 04:15 BUN/Creatinine Ratio 37 % 10/01/20 04:15 Glucose 153 mg/dL (75-100) H 10/01/20 04:15 POC Glucose 116 mg/dL (70-105) H 10/01/20 05:18 Lactic Acid 1.00 mmol/L (0.7-2.0) 09/24/20 04:00 Calcium 8.5 mg/dL (8.4-10.2) 10/01/20 04:15 Phosphorus 2.50 mg/dL (2.5-4.5) D 09/27/20 04:40 Total Bilirubin 0.30 mg/dL (0.1-1.2) 09/20/20 23:02 AST 59 units/L (5-40) H 09/20/20 23:02 ALT 30 units/L (7-56) 09/20/20 23:02 Alkaline Phosphatase 88 units/L (35-129) 09/20/20 23:02 Total Creatine Kinase 3606 units/L (55-170) H 09/21/20 15:54 Troponin T 1.880 ng/mL (0.00-0.029) H* D 09/21/20 04:34 Total Protein 7.0 g/dL (6.3-8.2) 09/20/20 23:02 Albumin 4.1 g/dL (3.9-5) 09/20/20 23:02 Albumin/Globulin Ratio 1.4 % 09/20/20 23:02 Triglycerides 43 mg/dL (2-149) 09/21/20 02:01 Cholesterol 152 mg/dL (50-199) 09/21/20 02:01 LDL Cholesterol Direct 92 mg/dL (50-130) 09/21/20 02:01 HDL Cholesterol 60 mg/dL (40-59) H 09/21/20 02:01 Cholesterol/HDL Ratio 2.53 % 09/21/20 02:01 Arterial Blood Glucose 156 mg/dL (65-95) H 10/01/20 00:11 Arterial Blood Ionized Calcium 5.1 mg/dL (4.6-5.3) 10/01/20 00:11 Urine Color Yellow (Yellow) 09/26/20 13:38 Urine Turbidity Turbid (Clear) 09/26/20 13:38 Urine pH 5.0 (5.0-7.0) 09/26/20 13:38 Ur Specific [place] 1.018 (1.003-1.030) 09/26/20 13:38 Urine Protein 100 mg/dl mg/dL (Negative) 09/26/20 13:38 Urine Glucose (UA) Neg mg/dL (Negative) 09/26/20 13:38 Urine Ketones Neg mg/dL (Negative) 09/26/20 13:38 Urine Blood Mod (Negative) 09/26/20 13:38 Urine Nitrite Neg (Negative) 09/26/20 13:38 Urine Bilirubin Neg (Negative) 09/26/20 13:38 Urine Urobilinogen < 2.0 mg/dL (<2.0) 09/26/20 13:38 Ur Leukocyte Esterase Neg (Negative) 09/26/20 13:38 Urine WBC (Auto) 8.0 /HPF (0.0-6.0) H 09/26/20 13:38 Urine RBC (Auto) 10.0 /HPF (0.0-6.0) 09/26/20 13:38 U Epithel Cells (Auto) 2.0 /HPF (0-13.0) 09/26/20 13:38 Urine Bacteria (Auto) 2+ /HPF (Negative) 09/21/20 14:27 Uric Acid Crystals 3+ 09/26/20 13:38 Urine Mucus 1+ /HPF 09/26/20 13:38 Urine Yeast (Budding) 2+ /HPF 09/20/20 23:35 Urine Sperm Few /HPF (WINEMAKER) 09/26/20 13:38 Urine Creatinine 60.4 mg/dL (0.1-20.0) H 09/21/20 14:27 Urine Sodium 108 mmol/L 09/21/20 14:27 Urine Urea Nitrogen 305 09/21/20 14:27 Nasal Screen MRSA (PCR) Positive (Negative) 09/25/20 17:55 Random Vancomycin < 4.0 ug/mL (0-40.0) 09/30/20 13:37 Urine Opiates Screen Presumptive negative 09/20/20 Unknown Urine Methadone Screen Presumptive negative 09/20/20 Unknown Ur Barbiturates Screen Presumptive negative 09/20/20 Unknown Ur Phencyclidine Scrn Presumptive negative 09/20/20 Unknown Ur Amphetamines Screen Presumptive negative 09/20/20 Unknown U Benzodiazepines Scrn Presumptive negative 09/20/20 Unknown Urine Cocaine Screen Presumptive negative 09/20/20 Unknown U Marijuana (THC) Screen Presumptive positive 09/20/20 Unknown Drugs of Abuse Note Disclamer 09/20/20 Unknown Coronavirus (PCR) Negative (Negative) 09/21/20 10:13 Microbiology: Microbiology 09/25/20 14:50 Peripheral/Venous Blood Culture - Final NO GROWTH AFTER 5 DAYS 09/25/20 14:50 Peripheral/Venous Blood Culture - Final NO GROWTH AFTER 5 DAYS Park/IV: Voiding Method Indwelling Catheter Active Medications - Current Medications Current Medications: Generic Name Dose Route Start Last Admin Trade Name Freq PRN Reason Stop Dose Admin Acetaminophen 650 mg 09/21/20 15:51 09/29/20 04:00 Acetaminophen 325 Mg/10.15 Ml Oral Liqd Unit Dose FEEDTUBE 650 mg Q6H PRN Administration Pain, Mild (1-3) Lipase/Protease/Amylase 1 each 09/25/20 14:22 Lipase 10,500/Protease 25,000/Amylase 43,750 (Units) Dr Cap FEEDTUBE PRN PRN For Clogged Feeding Tube Aspirin 325 mg 09/21/20 16:00 10/01/20 09:57 Aspirin 325 Mg Tab PO 325 mg QDAY PATSY Administration Atorvastatin Calcium 40 mg 09/23/20 22:00 09/30/20 23:03 Atorvastatin 40 Mg Tab PO 40 mg QHS PATSY Administration Dextrose 0 ml 09/30/20 05:37 09/30/20 05:57 Dextrose 50% In Water (25gm) 50 Ml Syringe IV 50 ml Q30MIN PRN Administration Hypoglycemia Protocol Famotidine 20 mg 09/25/20 10:00 10/01/20 09:58 Famotidine 20 Mg Tab PO 20 mg DAILY PATSY Administration Heparin Sodium (Porcine) 5,000 unit 09/21/20 22:00 10/01/20 09:57 Heparin 5,000 Unit/1 Ml Vial SUB-Q 5,000 unit Q12HR PATSY Administration Hydralazine HCl 5 mg 09/23/20 14:00 10/01/20 09:57 Hydralazine 20 Mg/1 Ml Inj IV 5 mg Q4HR PATSY Administration Hydrophilic Ointment 1 applic 09/20/20 22:59 Lip Therapy Vaseline TP Q2HR PRN Dry Lips Norepinephrine 4 mg in 250 mls @ 7.5 mls/hr 09/21/20 05:00 Levophed Drip 4 Mg/Ns 250 Ml IV TITR PATSY Protocol 2 MCG/MIN Fentanyl Citrate 2,000 mcg in 100 mls @ 5.105 mls/hr 09/22/20 11:30 09/25/20 18:17 Fentanyl Drip Premix IV 0 mcg/kg/hr TITR PATSY 0 mls/hr Titration Protocol 1 MCG/KG/HR Dextrose 1,000 mls @ 175 mls/hr 09/30/20 14:00 10/01/20 02:29 D5w IV 175 mls/hr DIRECT PATSY Administration Metoprolol Tartrate 50 mg 09/27/20 18:00 10/01/20 01:26 Metoprolol Tartrate 50 Mg Tab PO Not Given Q6HR PATSY Multi-Ingred Cream/Lotion/Oil/Oint 1 applic 09/20/20 22:59 Mineral Oil/Petrolatum, White Ophth Oint 3.5 Gm OU Q4HR PRN Dry Eye(s) Ondansetron HCl 4 mg 09/21/20 01:24 Ondansetron 4 Mg/2 Ml Inj IV Q8H PRN Nausea And Vomiting Simple Syrup 15 ml 09/25/20 14:22 Simple Syrup 15 Ml FEEDTUBE PRN PRN Hypoglycemia Simple Syrup 30 ml 09/25/20 14:22 Simple Syrup 15 Ml FEEDTUBE PRN PRN Hypoglycemia Sodium Bicarbonate 325 mg 09/25/20 14:22 Sodium Bicarbonate 325 Mg Tab FEEDTUBE PRN PRN For Clogged Feeding Tube Sodium Chloride 10 ml 09/21/20 10:00 09/30/20 23:04 Sodium Chloride 0.9% 10 Ml Flush Syringe IV 10 ml BID PATSY Administration Sodium Chloride 10 ml 09/21/20 01:24 09/24/20 18:21 Sodium Chloride 0.9% 10 Ml Flush Syringe IV 10 ml PRN PRN Administration LINE FLUSH Nutrition/Malnutrition Assess - Dietary Evaluation Nutrition/Malnutrition Findings: Nutrition Notes Start: 09/21/20 08:17 Freq: Status: Active Protocol: Document 09/29/20 12:44 AL (Rec: 09/29/20 12:50 AL [id number]) Co-Sign 09/29/20 12:44 CW Nutrition Notes Initial or Follow up Reassessment Current Diagnosis Acute Kidney Injury, Hypertension,Heart Failure, Respiratory Failure Other Pertinent Diagnosis s/p cardiopulmonary arrest, UTI, anoxic encephalopathy with global edema Current Diet TF - Vital AF 1.2 at 65ml/hr Labs/Tests Na 167 BUN 95 Cr 3.1 Pertinent Medications D5W at 100 ml/hr Height 6 ft Weight 102.1 kg [place] Body Weight (kg) 80.90 BMI 30.5 Weight Status Obese Subjective/Other Information F/U for TF tolerance. Pt intubated. Per nephrology note , keep flush at 300 ml q4h and do not increase. Pt is having excess output per RN. Per outpatient case manager note, pt be transitioned to hospice or withdrawal of care. TF was not running at goal at time of visit. Per RN, bottle ran out. Will be restarted soon Percent of energy/protein needs met: 100%/72% Burn Absent Trauma Absent GI Symptoms None Current % PO Negligible Minimum of two criteria No physical signs of malnutrition #1 Nutrition Diagnosis Inadequate oral intake Diagnosis Progress(for reassessment Continues documentation) Is patient on ventilator? Yes Is Patient Ambulatory and/or Out of Bed No REE-([facility]-confined to bed) 2318.184 Kcal/Kg value to use for calculation 18 Approximate Energy Requirements Using 1838 kcal/Kg Calculation Used for Recommendations Kcal/kg Additional Notes Pro needs >2g/kg IBW: >162g/ day Fluid needs 1ml/kcal Nutrition Intervention Change Diet Order: Continue TF Nutrition Support: Vital AF 1.2 at 65ml/hr with 300ml water flush q4h until hypernatremia resolves. Once hypernatremia resolves, continue free water flush of 100 ml q4h. [ End ] [ End ] Kcal 1,872 Protein (gm) 117 Fluid (mL) 1,265 Goal #1 TF tolerance Goal #2 TF to meet at least 75% of estimated energy and protein needs. Anticipated Discharge Needs: Unable to determine at the time. Follow-Up By: 10/03/20 Additional Comments F/U: TF tolerance and Na labs and water flushes.
--- NOTE | 2020-10-01 11:14 | Progress Note ---
Assessment and Plan - Patient Problems (1) Cardiomyopathy Current Visit: Yes Status: Acute (2) Acute anoxic encephalopathy Current Visit: Yes Status: Acute (3) Cardiac arrest Current Visit: Yes Status: Acute Subjective Date of service: 10/01/20 Principal diagnosis: Acute respiratory failure Interval history: UN RESPONSIVE Objective Vital Signs Temp Pulse Pulse Resp BP Pulse Ox 10/01/20 09:57 78 107/69 10/01/20 09:20 88 28 H 99/60 98 10/01/20 09:00 88 28 H 107/65 97 10/01/20 08:31 84 27 H 108/57 98 10/01/20 08:00 87 30 H 108/57 98 10/01/20 07:36 84 102/59 98 10/01/20 07:31 85 26 H 102/59 97 10/01/20 07:00 99.5 F 83 28 H 102/59 97 10/01/20 06:31 79 27 H 110/69 97 10/01/20 06:00 84 25 H 110/69 98 10/01/20 05:31 82 28 H 112/67 98 10/01/20 05:00 82 28 H 112/67 98 10/01/20 04:30 79 27 H 109/64 97 10/01/20 04:01 78 27 H 109/64 97 10/01/20 04:00 98.9 F 81 81 10/01/20 03:31 80 28 H 108/64 97 10/01/20 03:23 80 108/64 97 10/01/20 03:00 79 27 H 108/64 97 10/01/20 02:31 78 26 H 109/67 97 10/01/20 02:30 78 109/67 10/01/20 02:01 78 26 H 109/67 97 10/01/20 01:30 80 27 H 109/72 96 10/01/20 01:26 76 107/67 10/01/20 01:01 81 27 H 109/72 95 10/01/20 00:31 76 27 H 107/67 96 10/01/20 00:01 99.1 F 10/01/20 00:00 79 74 25 H 107/67 93 09/30/20 23:57 77 107/67 98 09/30/20 23:31 76 25 H 111/67 87 09/30/20 23:00 80 27 H 111/67 95 09/30/20 22:30 77 25 H 111/67 97 09/30/20 22:00 77 26 H 110/65 96 09/30/20 21:55 79 105/63 09/30/20 21:30 76 25 H 105/63 97 09/30/20 21:09 76 26 H 106/57 98 09/30/20 21:00 74 26 H 106/57 97 09/30/20 20:31 79 26 H 106/70 98 09/30/20 20:00 100.3 F H 74 74 27 H 101/62 98 09/30/20 19:30 72 26 H 104/58 97 09/30/20 19:00 74 22 101/60 97 09/30/20 18:30 73 25 H 96/58 97 09/30/20 18:17 89/59 09/30/20 18:01 76 25 H 107/63 99 09/30/20 17:30 73 25 H 83/59 98 09/30/20 17:00 68 26 H 92/62 97 09/30/20 16:30 69 26 H 87/57 98 09/30/20 16:00 66 26 H 89/62 97 09/30/20 15:30 63 25 H 97/56 96 09/30/20 15:18 66 113/60 96 09/30/20 15:00 65 26 H 112/60 94 09/30/20 14:30 66 27 H 113/60 09/30/20 14:01 73 20 108/68 09/30/20 14:00 98.5 F 09/30/20 13:30 69 25 H 108/68 97 09/30/20 13:25 73 120/65 09/30/20 13:00 70 26 H 120/65 97 09/30/20 12:31 67 30 H 114/72 100 09/30/20 12:05 66 26 H 118/67 96 09/30/20 12:01 63 28 H 118/67 95 09/30/20 12:00 98.7 F 70 09/30/20 11:30 64 26 H 112/67 99 - Physical Examination General: Other (intubated, unresponsive, on the vent) HEENT: Positive: Other (Pupils fixed) Neck: Positive: neck supple Cardiac: Positive: Reg Rate and Rhythm Lungs: Positive: clear to auscultation Neuro: Positive: Weakness (Unresponsive, on the vent) Abdomen: Positive: Unremarkable, Soft Skin: Positive: Clear Extremities: Present: normal. Absent: edema - Labs and Meds CBC 10/01/20 Range/Units 04:15 WBC 11.8 H (4.5-11.0) K/mm3 RBC 3.76 (3.65-5.03) M/mm3 Hgb 11.7 L (11.8-15.2) gm/dl Hct 35.2 L (35.5-45.6) % Plt Count 107 L (140-440) K/mm3 Comprehensive Metabolic Panel 09/30/20 09/30/20 10/01/20 Range/Units 13:37 20:32 04:15 Sodium 155 H 156 H 155 H (137-145) mmol/L Potassium 3.9 3.6 3.4 L (3.6-5.0) mmol/L Chloride 123.8 H 123.2 H 123.1 H (98-107) mmol/L Carbon Dioxide 20 L 21 L 21 L (22-30) mmol/L BUN 86 H 77 H 77 H (9-20) mg/dL Creatinine 2.4 H 2.3 H 2.1 H (0.8-1.3) mg/dL Glucose 135 H 119 H 153 H (75-100) mg/dL Calcium 8.2 L 8.4 8.5 (8.4-10.2) mg/dL
--- NOTE | 2020-10-01 11:34 | Progress Note ---
Assessment and Plan Assessment and Plan Assessment and plan: This is a 50-year-old male with heart failure and hypertension who presents to the emergency department on 09/21 with cardiac arrest after syncopal episode about 45 minutes prior to arrival to the emergency department. Upon arrival to the emergency department patient was found to be hypotensive and subsequently started on pressors with significant improvement in his blood pressure. Work-up in the emergency department reveals lactic acidosis, initial troponin within normal limits however subsequent troponins were elevated, no obvious ischemic changes on EKG, UDS positive for marijuana, urinalysis significant for urinary tract infection, BUN/creatinine slightly elevated 26/21. CXR showed severe cardiomegaly with mild interstitial pulmonary edema. Patient was admitted to the hospital service with consults to [facility], cardiology and nephrology s/p cardiac arrest, UTI, JAMEY, lactic acidosis and hypotension. -MRI reviewed concerning for anoxic brain injury -09/20 CXR shows cardiomegaly -09/21 echocardiogram shows severely dilated left ventricle, , LVEF 10 to 15%, -Renal ultrasound dystrophic kidney -09/23 CT head shows loss of reyna-white differentiation diffusely likely due to diffuse cerebral edema, without hemorrhage. Evaluation limited by artifact -09/23 Bilateral carotid ultrasound < 50% bilateral #S/p cardiac arrest Acute hypoxic respiratory failure Acute toxic and anoxic encephalopathy slight improved response today gag is intact as well as EOMI , no motor movment #Acute kidney injury with underlying ATN -80/2.9---89/2.8---2.1 #Sepsis #Cardiomyopathy left ejection fraction of 10 to 15% #Acute cystitis #Leukocytosis #Hypernatremia- Persistent-- Improved 155 today #Coagulopathic #Transaminitis likely secondary to sepsis #Hyperchloremia #Metabolic acidosis #Lactic acidosis #Hypertension over all Prognosis is poor GI/DVT prophylaxis: PPI, heparin subcu, SCDs to bilateral lower extremities while in bed Disposition: ICU PLAN 1- EEG friday as well as repeat CT brain 2-Correct electrolytes abnormalites,NA#162--- 155 today Over all prognosis is poor, 3- Treat underlying infection 4-No sedation will follow as needed Subjective Date of service: 10/01/20 Principal diagnosis: Acute respiratory failure Interval history: Status is unchanged unresponsive off sedation for X 2 days no witnessed seizure hypernatremia #166--- today is 155 BUN/Cr.#89/2.8--- today 2.1 -EEG is not done -today he is slightly better ? gag is intact and EOMI - will repeat CT brain Objective - Vital Sign Vital Signs - 12hr 09/30/20 09/30/20 10/01/20 23:31 23:57 00:00 Temperature Pulse Rate 76 77 79 Pulse Rate [ 74 From Monitor] Respiratory 25 H 25 H Rate Blood Pressure 111/67 107/67 107/67 O2 Sat by Pulse 87 98 93 Oximetry 10/01/20 10/01/20 10/01/20 00:01 00:31 01:01 Temperature 99.1 F Pulse Rate 76 81 Pulse Rate [ From Monitor] Respiratory 27 H 27 H Rate Blood Pressure 107/67 109/72 O2 Sat by Pulse 96 95 Oximetry 10/01/20 10/01/20 10/01/20 01:26 01:30 02:01 Temperature Pulse Rate 76 80 78 Pulse Rate [ From Monitor] Respiratory 27 H 26 H Rate Blood Pressure 107/67 109/72 109/67 O2 Sat by Pulse 96 97 Oximetry 10/01/20 10/01/20 10/01/20 02:30 02:31 03:00 Temperature Pulse Rate 78 78 79 Pulse Rate [ From Monitor] Respiratory 26 H 27 H Rate Blood Pressure 109/67 109/67 108/64 O2 Sat by Pulse 97 97 Oximetry 10/01/20 10/01/20 10/01/20 03:23 03:31 04:00 Temperature 98.9 F Pulse Rate 80 80 81 Pulse Rate [ 81 From Monitor] Respiratory 28 H Rate Blood Pressure 108/64 108/64 O2 Sat by Pulse 97 97 Oximetry 10/01/20 10/01/20 10/01/20 04:01 04:30 05:00 Temperature Pulse Rate 78 79 82 Pulse Rate [ From Monitor] Respiratory 27 H 27 H 28 H Rate Blood Pressure 109/64 109/64 112/67 O2 Sat by Pulse 97 97 98 Oximetry 10/01/20 10/01/20 10/01/20 05:31 06:00 06:31 Temperature Pulse Rate 82 84 79 Pulse Rate [ From Monitor] Respiratory 28 H 25 H 27 H Rate Blood Pressure 112/67 110/69 110/69 O2 Sat by Pulse 98 98 97 Oximetry 10/01/20 10/01/20 10/01/20 07:00 07:31 07:36 Temperature 99.5 F Pulse Rate 83 85 84 Pulse Rate [ From Monitor] Respiratory 28 H 26 H Rate Blood Pressure 102/59 102/59 102/59 O2 Sat by Pulse 97 97 98 Oximetry 10/01/20 10/01/20 10/01/20 08:00 08:31 09:00 Temperature Pulse Rate 87 84 88 Pulse Rate [ From Monitor] Respiratory 30 H 27 H 28 H Rate Blood Pressure 108/57 108/57 107/65 O2 Sat by Pulse 98 98 97 Oximetry 10/01/20 10/01/20 09:20 09:57 Temperature Pulse Rate 88 78 Pulse Rate [ From Monitor] Respiratory 28 H Rate Blood Pressure 99/60 107/69 O2 Sat by Pulse 98 Oximetry - General Apperance Constitutional: comfortable - EENT EENT: PERRL, mucous membranes moist - Respiratory Respiratory: chest non-tender, crackles - Cardiovascular Cardiovascular: regular rate Extremities: no peripheral edema bilat, no clubbing, cyanosis - Gastrointestinal Gastrointestinal: normoactive bowel sounds - Integumentary Integumentary: normal - Neurologic Cranial nerve examination: PERRL, EOMI, intact, intact gag reflex, other (absent corneal reflex ) Speech examination: other (no response to command intubated ) Detailed sensory examination: other (no movment to pain stimuli) - Laboratory Findings CBC and BMP: 10/01/20 04:15 10/01/20 04:15 Abnormal Lab Findings: Abnormal Labs 09/20/20 09/20/20 09/20/20 23:02 23:02 23:02 WBC RBC Hgb Hct MCV 96 H RDW 15.8 H Plt Count Lymph % (Auto) [place] % (Auto) Lymph # (Auto) [place] # (Auto) Seg Neutrophils % Seg Neuts % (Manual) 34.0 L Lymphocytes % (Manual) 57.0 H Seg Neutrophils # PT INR 1.14 H ABG pH POC ABG pCO2 POC ABG pO2 ABG pO2 ABG HCO3 ABG O2 Saturation ABG Base Excess ABG Hemoglobin ABG Oxyhemoglobin ABG Sodium ABG Potassium ABG Chloride ABG Glucose Sodium Potassium Chloride Carbon Dioxide 21 L BUN 26 H Creatinine 2.1 H Glucose 227 H POC Glucose Lactic Acid Calcium 10.3 H Phosphorus AST 59 H Total Creatine Kinase Troponin T HDL Cholesterol Arterial Blood Glucose Arterial Blood Ionized Calcium Urine WBC (Auto) Urine Creatinine 05/10/0609/20/20 09/21/20 23:15 23:35 01:20 WBC RBC Hgb Hct MCV RDW Plt Count Lymph % (Auto) [place] % (Auto) Lymph # (Auto) [place] # (Auto) Seg Neutrophils % Seg Neuts % (Manual) Lymphocytes % (Manual) Seg Neutrophils # PT INR ABG pH POC ABG pCO2 POC ABG pO2 ABG pO2 ABG HCO3 ABG O2 Saturation ABG Base Excess ABG Hemoglobin ABG Oxyhemoglobin ABG Sodium ABG Potassium ABG Chloride ABG Glucose Sodium Potassium Chloride Carbon Dioxide BUN Creatinine Glucose POC Glucose 197 H Lactic Acid 8.70 H* Calcium Phosphorus AST Total Creatine Kinase Troponin T HDL Cholesterol Arterial Blood Glucose Arterial Blood Ionized Calcium Urine WBC (Auto) 47.0 H Urine Creatinine 09/21/20 09/21/20 09/21/20 02:01 02:15 04:25 WBC RBC Hgb Hct MCV RDW Plt Count Lymph % (Auto) [place] % (Auto) Lymph # (Auto) [place] # (Auto) Seg Neutrophils % Seg Neuts % (Manual) Lymphocytes % (Manual) Seg Neutrophils # PT INR ABG pH 7.258 L POC ABG pCO2 POC ABG pO2 ABG pO2 244.1 H ABG HCO3 17.7 L ABG O2 Saturation 99.4 H ABG Base Excess -8.8 L ABG Hemoglobin ABG Oxyhemoglobin ABG Sodium ABG Potassium ABG Chloride ABG Glucose Sodium Potassium Chloride Carbon Dioxide BUN Creatinine Glucose POC Glucose 65 L Lactic Acid Calcium Phosphorus AST Total Creatine Kinase Troponin T 0.865 H* D HDL Cholesterol 60 H Arterial Blood Glucose Arterial Blood Ionized Calcium Urine WBC (Auto) Urine Creatinine 09/21/20 09/21/20 09/21/20 04:34 04:34 07:03 WBC RBC Hgb 16.9 H D Hct 51.3 H D MCV RDW Plt Count Lymph % (Auto) [place] % (Auto) Lymph # (Auto) [place] # (Auto) Seg Neutrophils % Seg Neuts % (Manual) Lymphocytes % (Manual) Seg Neutrophils # PT INR ABG pH POC ABG pCO2 POC ABG pO2 ABG pO2 ABG HCO3 ABG O2 Saturation ABG Base Excess ABG Hemoglobin ABG Oxyhemoglobin ABG Sodium ABG Potassium ABG Chloride ABG Glucose Sodium Potassium Chloride Carbon Dioxide BUN Creatinine Glucose POC Glucose Lactic Acid 3.00 H* Calcium Phosphorus AST Total Creatine Kinase Troponin T 1.880 H* D HDL Cholesterol Arterial Blood Glucose Arterial Blood Ionized Calcium Urine WBC (Auto) Urine Creatinine 09/21/20 09/21/20 09/21/20 07:03 07:32 07:53 WBC 19.2 H RBC 5.31 H Hgb 16.0 H Hct 49.0 H MCV RDW 15.7 H Plt Count Lymph % (Auto) [place] % (Auto) Lymph # (Auto) [place] # (Auto) Seg Neutrophils % Seg Neuts % (Manual) Lymphocytes % (Manual) Seg Neutrophils # PT 16.3 H INR 1.31 H ABG pH POC ABG pCO2 POC ABG pO2 ABG pO2 ABG HCO3 ABG O2 Saturation ABG Base Excess ABG Hemoglobin ABG Oxyhemoglobin ABG Sodium ABG Potassium ABG Chloride ABG Glucose Sodium Potassium Chloride Carbon Dioxide BUN Creatinine Glucose POC Glucose 60 L Lactic Acid Calcium Phosphorus AST Total Creatine Kinase Troponin T HDL Cholesterol Arterial Blood Glucose Arterial Blood Ionized Calcium Urine WBC (Auto) Urine Creatinine 09/21/20 09/21/20 09/21/20 07:53 09:30 10:08 WBC RBC Hgb Hct MCV RDW Plt Count Lymph % (Auto) [place] % (Auto) Lymph # (Auto) [place] # (Auto) Seg Neutrophils % Seg Neuts % (Manual) Lymphocytes % (Manual) Seg Neutrophils # PT 15.4 H INR 1.24 H ABG pH POC ABG pCO2 POC ABG pO2 ABG pO2 ABG HCO3 ABG O2 Saturation ABG Base Excess ABG Hemoglobin ABG Oxyhemoglobin ABG Sodium ABG Potassium ABG Chloride ABG Glucose Sodium 146 H Potassium 3.5 L Chloride 109.6 H Carbon Dioxide 20 L BUN 37 H Creatinine 2.8 H Glucose 127 H POC Glucose Lactic Acid 3.00 H* Calcium Phosphorus AST Total Creatine Kinase Troponin T HDL Cholesterol Arterial Blood Glucose Arterial Blood Ionized Calcium Urine WBC (Auto) Urine Creatinine 09/21/20 09/21/20 09/21/20 10:34 11:22 11:44 WBC RBC Hgb Hct MCV RDW Plt Count Lymph % (Auto) [place] % (Auto) Lymph # (Auto) [place] # (Auto) Seg Neutrophils % Seg Neuts % (Manual) Lymphocytes % (Manual) Seg Neutrophils # PT INR ABG pH POC ABG pCO2 25.9 L POC ABG pO2 196.9 H ABG pO2 ABG HCO3 ABG O2 Saturation ABG Base Excess ABG Hemoglobin ABG Oxyhemoglobin 98.4 H ABG Sodium ABG Potassium 3.3 L ABG Chloride 113.0 H ABG Glucose 130 H Sodium Potassium Chloride Carbon Dioxide BUN Creatinine Glucose POC Glucose 126 H 127 H Lactic Acid Calcium Phosphorus AST Total Creatine Kinase Troponin T HDL Cholesterol Arterial Blood Glucose 130 H Arterial Blood Ionized Calcium Urine WBC (Auto) Urine Creatinine 09/21/20 09/21/20 09/21/20 14:27 14:27 15:09 WBC RBC Hgb Hct MCV RDW Plt Count Lymph % (Auto) [place] % (Auto) Lymph # (Auto) [place] # (Auto) Seg Neutrophils % Seg Neuts % (Manual) Lymphocytes % (Manual) Seg Neutrophils # PT INR ABG pH POC ABG pCO2 POC ABG pO2 ABG pO2 ABG HCO3 ABG O2 Saturation ABG Base Excess ABG Hemoglobin ABG Oxyhemoglobin ABG Sodium ABG Potassium ABG Chloride ABG Glucose Sodium Potassium Chloride Carbon Dioxide BUN Creatinine Glucose POC Glucose 135 H Lactic Acid Calcium Phosphorus AST Total Creatine Kinase Troponin T HDL Cholesterol Arterial Blood Glucose Arterial Blood Ionized Calcium Urine WBC (Auto) 12.0 H Urine Creatinine 60.4 H 09/21/20 09/21/20 09/21/20 15:54 15:54 16:13 WBC RBC Hgb Hct MCV RDW Plt Count Lymph % (Auto) [place] % (Auto) Lymph # (Auto) [place] # (Auto) Seg Neutrophils % Seg Neuts % (Manual) Lymphocytes % (Manual) Seg Neutrophils # PT INR ABG pH POC ABG pCO2 POC ABG pO2 ABG pO2 ABG HCO3 ABG O2 Saturation ABG Base Excess ABG Hemoglobin ABG Oxyhemoglobin ABG Sodium ABG Potassium ABG Chloride ABG Glucose Sodium Potassium Chloride Carbon Dioxide BUN Creatinine Glucose POC Glucose 131 H Lactic Acid 3.60 H* Calcium Phosphorus AST Total Creatine Kinase 3606 H Troponin T HDL Cholesterol Arterial Blood Glucose Arterial Blood Ionized Calcium Urine WBC (Auto) Urine Creatinine 09/21/20 09/21/20 09/21/20 18:02 19:48 20:57 WBC RBC Hgb Hct MCV RDW Plt Count Lymph % (Auto) [place] % (Auto) Lymph # (Auto) [place] # (Auto) Seg Neutrophils % Seg Neuts % (Manual) Lymphocytes % (Manual) Seg Neutrophils # PT INR ABG pH POC ABG pCO2 POC ABG pO2 ABG pO2 ABG HCO3 ABG O2 Saturation ABG Base Excess ABG Hemoglobin ABG Oxyhemoglobin ABG Sodium ABG Potassium ABG Chloride ABG Glucose Sodium Potassium Chloride Carbon Dioxide BUN Creatinine Glucose POC Glucose 139 H 184 H 173 H Lactic Acid Calcium Phosphorus AST Total Creatine Kinase Troponin T HDL Cholesterol Arterial Blood Glucose Arterial Blood Ionized Calcium Urine WBC (Auto) Urine Creatinine 09/21/20 09/21/20 09/21/20 22:02 22:27 23:54 WBC RBC Hgb Hct MCV RDW Plt Count Lymph % (Auto) [place] % (Auto) Lymph # (Auto) [place] # (Auto) Seg Neutrophils % Seg Neuts % (Manual) Lymphocytes % (Manual) Seg Neutrophils # PT INR ABG pH POC ABG pCO2 POC ABG pO2 ABG pO2 ABG HCO3 ABG O2 Saturation ABG Base Excess ABG Hemoglobin ABG Oxyhemoglobin ABG Sodium ABG Potassium ABG Chloride ABG Glucose Sodium Potassium Chloride Carbon Dioxide BUN Creatinine Glucose POC Glucose 147 H 142 H 143 H Lactic Acid Calcium Phosphorus AST Total Creatine Kinase Troponin T HDL Cholesterol Arterial Blood Glucose Arterial Blood Ionized Calcium Urine WBC (Auto) Urine Creatinine 09/22/20 09/22/20 09/22/20 00:49 02:01 02:14 WBC RBC Hgb Hct MCV RDW Plt Count Lymph % (Auto) [place] % (Auto) Lymph # (Auto) [place] # (Auto) Seg Neutrophils % Seg Neuts % (Manual) Lymphocytes % (Manual) Seg Neutrophils # PT INR ABG pH POC ABG pCO2 POC ABG pO2 ABG pO2 ABG HCO3 ABG O2 Saturation ABG Base Excess ABG Hemoglobin ABG Oxyhemoglobin ABG Sodium ABG Potassium ABG Chloride ABG Glucose Sodium Potassium Chloride Carbon Dioxide BUN Creatinine Glucose POC Glucose 154 H 154 H 149 H Lactic Acid Calcium Phosphorus AST Total Creatine Kinase Troponin T HDL Cholesterol Arterial Blood Glucose Arterial Blood Ionized Calcium Urine WBC (Auto) Urine Creatinine 09/22/20 09/22/20 09/22/20 02:57 03:21 03:58 WBC RBC Hgb Hct MCV RDW Plt Count Lymph % (Auto) [place] % (Auto) Lymph # (Auto) [place] # (Auto) Seg Neutrophils % Seg Neuts % (Manual) Lymphocytes % (Manual) Seg Neutrophils # PT INR ABG pH 7.496 H POC ABG pCO2 25.0 L POC ABG pO2 73.8 L ABG pO2 ABG HCO3 ABG O2 Saturation ABG Base Excess ABG Hemoglobin ABG Oxyhemoglobin ABG Sodium ABG Potassium ABG Chloride 115.0 H ABG Glucose 154 H Sodium Potassium Chloride Carbon Dioxide BUN Creatinine Glucose POC Glucose 166 H 158 H Lactic Acid Calcium Phosphorus AST Total Creatine Kinase Troponin T HDL Cholesterol Arterial Blood Glucose 154 H Arterial Blood Ionized Calcium 4.5 L Urine WBC (Auto) Urine Creatinine 09/22/20 09/22/20 09/22/20 05:06 05:56 06:50 WBC RBC Hgb Hct MCV RDW Plt Count Lymph % (Auto) [place] % (Auto) Lymph # (Auto) [place] # (Auto) Seg Neutrophils % Seg Neuts % (Manual) Lymphocytes % (Manual) Seg Neutrophils # PT INR ABG pH POC ABG pCO2 POC ABG pO2 ABG pO2 ABG HCO3 ABG O2 Saturation ABG Base Excess ABG Hemoglobin ABG Oxyhemoglobin ABG Sodium ABG Potassium ABG Chloride ABG Glucose Sodium Potassium Chloride Carbon Dioxide BUN Creatinine Glucose POC Glucose 147 H 145 H 137 H Lactic Acid Calcium Phosphorus AST Total Creatine Kinase Troponin T HDL Cholesterol Arterial Blood Glucose Arterial Blood Ionized Calcium Urine WBC (Auto) Urine Creatinine 09/22/20 09/22/20 09/22/20 08:02 08:26 08:26 WBC 15.2 H RBC Hgb Hct MCV RDW 16.0 H Plt Count Lymph % (Auto) 7.6 L [place] % (Auto) Lymph # (Auto) [place] # (Auto) 1.0 H Seg Neutrophils % 86.0 H Seg Neuts % (Manual) Lymphocytes % (Manual) Seg Neutrophils # 13.0 H PT 15.5 H INR 1.25 H ABG pH POC ABG pCO2 POC ABG pO2 ABG pO2 ABG HCO3 ABG O2 Saturation ABG Base Excess ABG Hemoglobin ABG Oxyhemoglobin ABG Sodium ABG Potassium ABG Chloride ABG Glucose Sodium Potassium Chloride Carbon Dioxide BUN Creatinine Glucose POC Glucose 149 H Lactic Acid Calcium Phosphorus AST Total Creatine Kinase Troponin T HDL Cholesterol Arterial Blood Glucose Arterial Blood Ionized Calcium Urine WBC (Auto) Urine Creatinine 09/22/20 09/22/20 09/22/20 08:26 12:04 15:55 WBC RBC Hgb Hct MCV RDW Plt Count Lymph % (Auto) [place] % (Auto) Lymph # (Auto) [place] # (Auto) Seg Neutrophils % Seg Neuts % (Manual) Lymphocytes % (Manual) Seg Neutrophils # PT INR ABG pH POC ABG pCO2 POC ABG pO2 ABG pO2 ABG HCO3 ABG O2 Saturation ABG Base Excess ABG Hemoglobin ABG Oxyhemoglobin ABG Sodium ABG Potassium ABG Chloride ABG Glucose Sodium 146 H Potassium 3.5 L Chloride 114.0 H Carbon Dioxide 18 L BUN 46 H Creatinine 3.7 H Glucose 134 H POC Glucose 138 H 123 H Lactic Acid Calcium 7.7 L Phosphorus AST Total Creatine Kinase Troponin T HDL Cholesterol Arterial Blood Glucose Arterial Blood Ionized Calcium Urine WBC (Auto) Urine Creatinine 09/22/20 09/22/20 09/23/20 21:57 23:41 03:30 WBC 14.2 H RBC Hgb Hct MCV RDW 16.5 H Plt Count 126 L Lymph % (Auto) 8.2 L [place] % (Auto) 7.8 H Lymph # (Auto) [place] # (Auto) 1.1 H Seg Neutrophils % 83.8 H Seg Neuts % (Manual) Lymphocytes % (Manual) Seg Neutrophils # 11.9 H PT INR ABG pH POC ABG pCO2 POC ABG pO2 ABG pO2 ABG HCO3 ABG O2 Saturation ABG Base Excess ABG Hemoglobin ABG Oxyhemoglobin ABG Sodium ABG Potassium ABG Chloride ABG Glucose Sodium Potassium Chloride Carbon Dioxide BUN Creatinine Glucose POC Glucose 124 H 130 H Lactic Acid Calcium Phosphorus AST Total Creatine Kinase Troponin T HDL Cholesterol Arterial Blood Glucose Arterial Blood Ionized Calcium Urine WBC (Auto) Urine Creatinine 09/23/20 09/23/20 09/23/20 03:30 03:45 12:33 WBC RBC Hgb Hct MCV RDW Plt Count Lymph % (Auto) [place] % (Auto) Lymph # (Auto) [place] # (Auto) Seg Neutrophils % Seg Neuts % (Manual) Lymphocytes % (Manual) Seg Neutrophils # PT INR ABG pH POC ABG pCO2 POC ABG pO2 ABG pO2 ABG HCO3 ABG O2 Saturation ABG Base Excess ABG Hemoglobin ABG Oxyhemoglobin ABG Sodium ABG Potassium ABG Chloride ABG Glucose Sodium Potassium Chloride 110.4 H Carbon Dioxide 19 L BUN 56 H Creatinine 4.7 H Glucose 148 H POC Glucose 132 H 139 H Lactic Acid Calcium 7.4 L Phosphorus 5.80 H D AST Total Creatine Kinase Troponin T HDL Cholesterol Arterial Blood Glucose Arterial Blood Ionized Calcium Urine WBC (Auto) Urine Creatinine 09/23/20 09/23/20 09/24/20 17:54 23:18 02:57 WBC RBC Hgb Hct MCV RDW Plt Count Lymph % (Auto) [place] % (Auto) Lymph # (Auto) [place] # (Auto) Seg Neutrophils % Seg Neuts % (Manual) Lymphocytes % (Manual) Seg Neutrophils # PT INR ABG pH POC ABG pCO2 30.0 L POC ABG pO2 75.1 L ABG pO2 ABG HCO3 ABG O2 Saturation ABG Base Excess ABG Hemoglobin ABG Oxyhemoglobin ABG Sodium 149.5 H ABG Potassium ABG Chloride 119.0 H ABG Glucose 144 H Sodium Potassium Chloride Carbon Dioxide BUN Creatinine Glucose POC Glucose 115 H 139 H Lactic Acid Calcium Phosphorus AST Total Creatine Kinase Troponin T HDL Cholesterol Arterial Blood Glucose 144 H Arterial Blood Ionized Calcium Urine WBC (Auto) Urine Creatinine 09/24/20 09/24/20 09/24/20 04:20 04:30 05:10 WBC 14.3 H RBC Hgb Hct MCV RDW 16.6 H Plt Count 135 L Lymph % (Auto) 5.9 L [place] % (Auto) Lymph # (Auto) 0.8 L [place] # (Auto) 0.9 H Seg Neutrophils % 87.5 H Seg Neuts % (Manual) Lymphocytes % (Manual) Seg Neutrophils # 12.5 H PT INR ABG pH POC ABG pCO2 POC ABG pO2 ABG pO2 ABG HCO3 ABG O2 Saturation ABG Base Excess ABG Hemoglobin ABG Oxyhemoglobin ABG Sodium ABG Potassium ABG Chloride ABG Glucose Sodium 147 H Potassium Chloride 114.4 H Carbon Dioxide 19 L BUN 50 H Creatinine 3.2 H Glucose 142 H POC Glucose 137 H Lactic Acid Calcium 8.3 L Phosphorus AST Total Creatine Kinase Troponin T HDL Cholesterol Arterial Blood Glucose Arterial Blood Ionized Calcium Urine WBC (Auto) Urine Creatinine 09/24/20 09/24/20 09/24/20 12:03 17:39 23:15 WBC RBC Hgb Hct MCV RDW Plt Count Lymph % (Auto) [place] % (Auto) Lymph # (Auto) [place] # (Auto) Seg Neutrophils % Seg Neuts % (Manual) Lymphocytes % (Manual) Seg Neutrophils # PT INR ABG pH POC ABG pCO2 POC ABG pO2 ABG pO2 ABG HCO3 ABG O2 Saturation ABG Base Excess ABG Hemoglobin ABG Oxyhemoglobin ABG Sodium ABG Potassium ABG Chloride ABG Glucose Sodium Potassium Chloride Carbon Dioxide BUN Creatinine Glucose POC Glucose 120 H 155 H 109 H Lactic Acid Calcium Phosphorus AST Total Creatine Kinase Troponin T HDL Cholesterol Arterial Blood Glucose Arterial Blood Ionized Calcium Urine WBC (Auto) Urine Creatinine 09/25/20 09/25/20 09/25/20 03:02 05:16 07:50 WBC 14.0 H RBC Hgb Hct MCV RDW 16.5 H Plt Count Lymph % (Auto) 6.7 L [place] % (Auto) 9.1 H Lymph # (Auto) 0.9 L [place] # (Auto) 1.3 H Seg Neutrophils % 84.1 H Seg Neuts % (Manual) Lymphocytes % (Manual) Seg Neutrophils # 11.8 H PT INR ABG pH POC ABG pCO2 POC ABG pO2 67.4 L ABG pO2 ABG HCO3 ABG O2 Saturation ABG Base Excess ABG Hemoglobin ABG Oxyhemoglobin 92.3 L ABG Sodium 157.3 H ABG Potassium ABG Chloride 125.0 H ABG Glucose 147 H Sodium Potassium Chloride Carbon Dioxide BUN Creatinine Glucose POC Glucose 126 H Lactic Acid Calcium Phosphorus AST Total Creatine Kinase Troponin T HDL Cholesterol Arterial Blood Glucose 147 H Arterial Blood Ionized Calcium Urine WBC (Auto) Urine Creatinine 09/25/20 09/25/20 09/25/20 07:50 11:56 14:50 WBC RBC Hgb Hct MCV RDW Plt Count Lymph % (Auto) [place] % (Auto) Lymph # (Auto) [place] # (Auto) Seg Neutrophils % Seg Neuts % (Manual) Lymphocytes % (Manual) Seg Neutrophils # PT INR ABG pH POC ABG pCO2 POC ABG pO2 ABG pO2 ABG HCO3 ABG O2 Saturation ABG Base Excess ABG Hemoglobin ABG Oxyhemoglobin ABG Sodium ABG Potassium ABG Chloride ABG Glucose Sodium 160 H D 160 H Potassium Chloride 124.2 H Carbon Dioxide BUN 54 H Creatinine 2.8 H Glucose 124 H POC Glucose 109 H Lactic Acid Calcium 8.3 L Phosphorus AST Total Creatine Kinase Troponin T HDL Cholesterol Arterial Blood Glucose Arterial Blood Ionized Calcium Urine WBC (Auto) Urine Creatinine 09/25/20 09/25/20 09/25/20 18:02 19:45 23:02 WBC RBC Hgb Hct MCV RDW Plt Count Lymph % (Auto) [place] % (Auto) Lymph # (Auto) [place] # (Auto) Seg Neutrophils % Seg Neuts % (Manual) Lymphocytes % (Manual) Seg Neutrophils # PT INR ABG pH POC ABG pCO2 POC ABG pO2 ABG pO2 ABG HCO3 ABG O2 Saturation ABG Base Excess ABG Hemoglobin ABG Oxyhemoglobin ABG Sodium ABG Potassium ABG Chloride ABG Glucose Sodium 162 H* 160 H Potassium Chloride Carbon Dioxide BUN Creatinine Glucose POC Glucose 113 H Lactic Acid Calcium Phosphorus AST Total Creatine Kinase Troponin T HDL Cholesterol Arterial Blood Glucose Arterial Blood Ionized Calcium Urine WBC (Auto) Urine Creatinine 09/25/20 09/26/20 09/26/20 23:17 03:30 04:17 WBC 13.9 H RBC Hgb Hct MCV RDW 16.2 H Plt Count 133 L Lymph % (Auto) 7.4 L [place] % (Auto) 11.2 H Lymph # (Auto) 1.0 L [place] # (Auto) 1.6 H Seg Neutrophils % 81.0 H Seg Neuts % (Manual) Lymphocytes % (Manual) Seg Neutrophils # 11.3 H PT INR ABG pH 7.472 H POC ABG pCO2 31.1 L POC ABG pO2 56.5 L ABG pO2 ABG HCO3 ABG O2 Saturation ABG Base Excess ABG Hemoglobin ABG Oxyhemoglobin 91.3 L ABG Sodium 159.9 H ABG Potassium ABG Chloride 129.0 H ABG Glucose 135 H Sodium Potassium Chloride Carbon Dioxide BUN Creatinine Glucose POC Glucose 119 H Lactic Acid Calcium Phosphorus AST Total Creatine Kinase Troponin T HDL Cholesterol Arterial Blood Glucose 135 H Arterial Blood Ionized Calcium Urine WBC (Auto) Urine Creatinine 09/26/20 09/26/20 09/26/20 04:17 05:34 11:44 WBC RBC Hgb Hct MCV RDW Plt Count Lymph % (Auto) [place] % (Auto) Lymph # (Auto) [place] # (Auto) Seg Neutrophils % Seg Neuts % (Manual) Lymphocytes % (Manual) Seg Neutrophils # PT INR ABG pH POC ABG pCO2 POC ABG pO2 ABG pO2 ABG HCO3 ABG O2 Saturation ABG Base Excess ABG Hemoglobin ABG Oxyhemoglobin ABG Sodium ABG Potassium ABG Chloride ABG Glucose Sodium 162 H* Potassium Chloride 128.4 H Carbon Dioxide BUN 56 H Creatinine 2.5 H Glucose 128 H POC Glucose 135 H 141 H Lactic Acid Calcium Phosphorus 2.00 L D AST Total Creatine Kinase Troponin T HDL Cholesterol Arterial Blood Glucose Arterial Blood Ionized Calcium Urine WBC (Auto) Urine Creatinine 09/26/20 09/26/20 09/26/20 12:12 13:38 17:46 WBC RBC Hgb Hct MCV RDW Plt Count Lymph % (Auto) [place] % (Auto) Lymph # (Auto) [place] # (Auto) Seg Neutrophils % Seg Neuts % (Manual) Lymphocytes % (Manual) Seg Neutrophils # PT INR ABG pH POC ABG pCO2 POC ABG pO2 ABG pO2 ABG HCO3 ABG O2 Saturation ABG Base Excess ABG Hemoglobin ABG Oxyhemoglobin ABG Sodium ABG Potassium ABG Chloride ABG Glucose Sodium 160 H Potassium Chloride 127.2 H Carbon Dioxide BUN 60 H Creatinine 2.5 H Glucose 137 H POC Glucose 119 H Lactic Acid Calcium Phosphorus AST Total Creatine Kinase Troponin T HDL Cholesterol Arterial Blood Glucose Arterial Blood Ionized Calcium Urine WBC (Auto) 8.0 H Urine Creatinine 09/26/20 09/27/20 09/27/20 22:25 00:01 00:30 WBC RBC Hgb Hct MCV RDW Plt Count Lymph % (Auto) [place] % (Auto) Lymph # (Auto) [place] # (Auto) Seg Neutrophils % Seg Neuts % (Manual) Lymphocytes % (Manual) Seg Neutrophils # PT INR ABG pH POC ABG pCO2 POC ABG pO2 ABG pO2 ABG HCO3 ABG O2 Saturation ABG Base Excess ABG Hemoglobin ABG Oxyhemoglobin ABG Sodium ABG Potassium ABG Chloride ABG Glucose Sodium 161 H* 163 H* Potassium Chloride 129.3 H Carbon Dioxide BUN 61 H Creatinine 2.6 H Glucose 146 H POC Glucose 156 H Lactic Acid Calcium Phosphorus AST Total Creatine Kinase Troponin T HDL Cholesterol Arterial Blood Glucose Arterial Blood Ionized Calcium Urine WBC (Auto) Urine Creatinine 09/27/20 09/27/20 09/27/20 03:18 04:40 04:40 WBC 13.8 H RBC Hgb Hct MCV RDW 15.9 H Plt Count 123 L Lymph % (Auto) 7.8 L [place] % (Auto) 10.2 H Lymph # (Auto) 1.1 L [place] # (Auto) 1.4 H Seg Neutrophils % 81.5 H Seg Neuts % (Manual) Lymphocytes % (Manual) Seg Neutrophils # 11.2 H PT INR ABG pH POC ABG pCO2 POC ABG pO2 70.0 L ABG pO2 ABG HCO3 ABG O2 Saturation ABG Base Excess ABG Hemoglobin ABG Oxyhemoglobin ABG Sodium 160.6 H ABG Potassium ABG Chloride 130.0 H ABG Glucose 139 H Sodium 162 H* Potassium Chloride 128.9 H Carbon Dioxide BUN 63 H Creatinine 2.6 H Glucose 128 H POC Glucose Lactic Acid Calcium 8.3 L Phosphorus AST Total Creatine Kinase Troponin T HDL Cholesterol Arterial Blood Glucose 139 H Arterial Blood Ionized Calcium Urine WBC (Auto) Urine Creatinine 09/27/20 09/27/20 09/27/20 05:55 10:15 11:33 WBC RBC Hgb Hct MCV RDW Plt Count Lymph % (Auto) [place] % (Auto) Lymph # (Auto) [place] # (Auto) Seg Neutrophils % Seg Neuts % (Manual) Lymphocytes % (Manual) Seg Neutrophils # PT INR ABG pH POC ABG pCO2 POC ABG pO2 ABG pO2 ABG HCO3 ABG O2 Saturation ABG Base Excess ABG Hemoglobin ABG Oxyhemoglobin ABG Sodium ABG Potassium ABG Chloride ABG Glucose Sodium 164 H* Potassium 3.5 L Chloride 131.3 H Carbon Dioxide BUN 63 H Creatinine 2.7 H Glucose 147 H POC Glucose 116 H 131 H Lactic Acid Calcium Phosphorus AST Total Creatine Kinase Troponin T HDL Cholesterol Arterial Blood Glucose Arterial Blood Ionized Calcium Urine WBC (Auto) Urine Creatinine 09/27/20 09/28/20 09/28/20 17:21 00:10 03:20 WBC RBC Hgb Hct MCV RDW Plt Count Lymph % (Auto) [place] % (Auto) Lymph # (Auto) [place] # (Auto) Seg Neutrophils % Seg Neuts % (Manual) Lymphocytes % (Manual) Seg Neutrophils # PT INR ABG pH POC ABG pCO2 30.0 L POC ABG pO2 72.7 L ABG pO2 ABG HCO3 ABG O2 Saturation ABG Base Excess ABG Hemoglobin ABG Oxyhemoglobin ABG Sodium 159.8 H ABG Potassium ABG Chloride 131.0 H ABG Glucose 156 H Sodium Potassium Chloride Carbon Dioxide BUN Creatinine Glucose POC Glucose 151 H 125 H Lactic Acid Calcium Phosphorus AST Total Creatine Kinase Troponin T HDL Cholesterol Arterial Blood Glucose 156 H Arterial Blood Ionized Calcium Urine WBC (Auto) Urine Creatinine 09/28/20 09/28/20 09/28/20 04:29 04:29 05:16 WBC 16.7 H RBC Hgb Hct MCV RDW 16.4 H Plt Count 123 L Lymph % (Auto) 6.6 L [place] % (Auto) Lymph # (Auto) 1.1 L [place] # (Auto) 1.1 H Seg Neutrophils % 86.5 H Seg Neuts % (Manual) Lymphocytes % (Manual) Seg Neutrophils # 14.4 H PT INR ABG pH POC ABG pCO2 POC ABG pO2 ABG pO2 ABG HCO3 ABG O2 Saturation ABG Base Excess ABG Hemoglobin ABG Oxyhemoglobin ABG Sodium ABG Potassium ABG Chloride ABG Glucose Sodium 162 H* Potassium Chloride 128.7 H Carbon Dioxide 21 L BUN 73 H Creatinine 2.8 H Glucose 166 H POC Glucose 135 H Lactic Acid Calcium Phosphorus AST Total Creatine Kinase Troponin T HDL Cholesterol Arterial Blood Glucose Arterial Blood Ionized Calcium Urine WBC (Auto) Urine Creatinine 09/28/20 09/28/20 09/28/20 12:01 12:51 17:43 WBC RBC Hgb Hct MCV RDW Plt Count Lymph % (Auto) [place] % (Auto) Lymph # (Auto) [place] # (Auto) Seg Neutrophils % Seg Neuts % (Manual) Lymphocytes % (Manual) Seg Neutrophils # PT INR ABG pH POC ABG pCO2 POC ABG pO2 ABG pO2 ABG HCO3 ABG O2 Saturation ABG Base Excess ABG Hemoglobin ABG Oxyhemoglobin ABG Sodium ABG Potassium ABG Chloride ABG Glucose Sodium 161 H* Potassium Chloride 129.8 H Carbon Dioxide 20 L BUN 80 H Creatinine 2.9 H Glucose 139 H POC Glucose 115 H 119 H Lactic Acid Calcium 8.3 L Phosphorus AST Total Creatine Kinase Troponin T HDL Cholesterol Arterial Blood Glucose Arterial Blood Ionized Calcium Urine WBC (Auto) Urine Creatinine 09/28/20 09/29/20 09/29/20 23:26 00:50 05:13 WBC RBC Hgb Hct MCV RDW Plt Count Lymph % (Auto) [place] % (Auto) Lymph # (Auto) [place] # (Auto) Seg Neutrophils % Seg Neuts % (Manual) Lymphocytes % (Manual) Seg Neutrophils # PT INR ABG pH POC ABG pCO2 POC ABG pO2 ABG pO2 ABG HCO3 ABG O2 Saturation ABG Base Excess ABG Hemoglobin ABG Oxyhemoglobin ABG Sodium ABG Potassium ABG Chloride ABG Glucose Sodium 164 H* Potassium Chloride 128.9 H Carbon Dioxide BUN 84 H Creatinine 3.1 H Glucose 125 H POC Glucose 121 H 116 H Lactic Acid Calcium Phosphorus AST Total Creatine Kinase Troponin T HDL Cholesterol Arterial Blood Glucose Arterial Blood Ionized Calcium Urine WBC (Auto) Urine Creatinine 09/29/20 09/29/20 09/29/20 07:24 07:24 11:25 WBC 17.2 H RBC Hgb 11.5 L Hct 35.1 L MCV RDW 16.0 H Plt Count 114 L Lymph % (Auto) [place] % (Auto) Lymph # (Auto) [place] # (Auto) Seg Neutrophils % Seg Neuts % (Manual) Lymphocytes % (Manual) Seg Neutrophils # PT INR ABG pH POC ABG pCO2 POC ABG pO2 ABG pO2 ABG HCO3 ABG O2 Saturation ABG Base Excess ABG Hemoglobin ABG Oxyhemoglobin ABG Sodium ABG Potassium ABG Chloride ABG Glucose Sodium 167 H* Potassium Chloride 133.5 H Carbon Dioxide BUN 95 H Creatinine 3.1 H Glucose 157 H POC Glucose 118 H Lactic Acid Calcium Phosphorus AST Total Creatine Kinase Troponin T HDL Cholesterol Arterial Blood Glucose Arterial Blood Ionized Calcium Urine WBC (Auto) Urine Creatinine 09/29/20 09/29/20 09/29/20 12:52 18:12 21:16 WBC RBC Hgb Hct MCV RDW Plt Count Lymph % (Auto) [place] % (Auto) Lymph # (Auto) [place] # (Auto) Seg Neutrophils % Seg Neuts % (Manual) Lymphocytes % (Manual) Seg Neutrophils # PT INR ABG pH POC ABG pCO2 POC ABG pO2 ABG pO2 ABG HCO3 ABG O2 Saturation ABG Base Excess ABG Hemoglobin ABG Oxyhemoglobin ABG Sodium ABG Potassium ABG Chloride ABG Glucose Sodium 167 H* 162 H* Potassium 3.5 L Chloride 133.3 H 126.6 H Carbon Dioxide BUN 93 H 92 H Creatinine 3.0 H 2.8 H Glucose 130 H 147 H POC Glucose 133 H Lactic Acid Calcium 8.3 L Phosphorus AST Total Creatine Kinase Troponin T HDL Cholesterol Arterial Blood Glucose Arterial Blood Ionized Calcium Urine WBC (Auto) Urine Creatinine 09/29/20 09/30/20 09/30/20 23:35 00:27 02:59 WBC RBC Hgb Hct MCV RDW Plt Count Lymph % (Auto) [place] % (Auto) Lymph # (Auto) [place] # (Auto) Seg Neutrophils % Seg Neuts % (Manual) Lymphocytes % (Manual) Seg Neutrophils # PT INR ABG pH POC ABG pCO2 28.6 L POC ABG pO2 70.4 L ABG pO2 ABG HCO3 ABG O2 Saturation ABG Base Excess ABG Hemoglobin ABG Oxyhemoglobin 93.7 L ABG Sodium 158.6 H ABG Potassium 3.3 L ABG Chloride 127.0 H ABG Glucose 167 H Sodium 162 H* Potassium 3.5 L Chloride 127.6 H Carbon Dioxide 21 L BUN 87 H Creatinine 2.7 H Glucose 147 H POC Glucose 117 H Lactic Acid Calcium Phosphorus AST Total Creatine Kinase Troponin T HDL Cholesterol Arterial Blood Glucose 167 H Arterial Blood Ionized Calcium Urine WBC (Auto) Urine Creatinine 09/30/20 09/30/20 09/30/20 04:40 05:13 05:25 WBC RBC Hgb Hct MCV RDW Plt Count Lymph % (Auto) [place] % (Auto) Lymph # (Auto) [place] # (Auto) Seg Neutrophils % Seg Neuts % (Manual) Lymphocytes % (Manual) Seg Neutrophils # PT INR ABG pH POC ABG pCO2 POC ABG pO2 ABG pO2 ABG HCO3 ABG O2 Saturation ABG Base Excess ABG Hemoglobin ABG Oxyhemoglobin ABG Sodium ABG Potassium ABG Chloride ABG Glucose Sodium 162 H* Potassium Chloride 127.2 H Carbon Dioxide 20 L BUN 89 H Creatinine 2.8 H Glucose 132 H POC Glucose 43 L 143 H Lactic Acid Calcium 8.1 L Phosphorus AST Total Creatine Kinase Troponin T HDL Cholesterol Arterial Blood Glucose Arterial Blood Ionized Calcium Urine WBC (Auto) Urine Creatinine 09/30/20 09/30/20 09/30/20 11:14 13:37 20:32 WBC RBC Hgb Hct MCV RDW Plt Count Lymph % (Auto) [place] % (Auto) Lymph # (Auto) [place] # (Auto) Seg Neutrophils % Seg Neuts % (Manual) Lymphocytes % (Manual) Seg Neutrophils # PT INR ABG pH POC ABG pCO2 POC ABG pO2 ABG pO2 ABG HCO3 ABG O2 Saturation ABG Base Excess ABG Hemoglobin ABG Oxyhemoglobin ABG Sodium ABG Potassium ABG Chloride ABG Glucose Sodium 155 H 156 H Potassium Chloride 123.8 H 123.2 H Carbon Dioxide 20 L 21 L BUN 86 H 77 H Creatinine 2.4 H 2.3 H Glucose 135 H 119 H POC Glucose 125 H Lactic Acid Calcium 8.2 L Phosphorus AST Total Creatine Kinase Troponin T HDL Cholesterol Arterial Blood Glucose Arterial Blood Ionized Calcium Urine WBC (Auto) Urine Creatinine 10/01/20 10/01/20 10/01/20 00:11 04:15 04:15 WBC 11.8 H RBC Hgb 11.7 L Hct 35.2 L MCV RDW Plt Count 107 L Lymph % (Auto) [place] % (Auto) Lymph # (Auto) [place] # (Auto) Seg Neutrophils % Seg Neuts % (Manual) Lymphocytes % (Manual) Seg Neutrophils # PT INR ABG pH POC ABG pCO2 30.6 L POC ABG pO2 ABG pO2 ABG HCO3 ABG O2 Saturation ABG Base Excess ABG Hemoglobin 11.5 L ABG Oxyhemoglobin ABG Sodium 156.2 H ABG Potassium 3.3 L ABG Chloride 124.0 H ABG Glucose 156 H Sodium 155 H Potassium 3.4 L Chloride 123.1 H Carbon Dioxide 21 L BUN 77 H Creatinine 2.1 H Glucose 153 H POC Glucose Lactic Acid Calcium Phosphorus AST Total Creatine Kinase Troponin T HDL Cholesterol Arterial Blood Glucose 156 H Arterial Blood Ionized Calcium Urine WBC (Auto) Urine Creatinine 10/01/20 05:18 WBC RBC Hgb Hct MCV RDW Plt Count Lymph % (Auto) [place] % (Auto) Lymph # (Auto) [place] # (Auto) Seg Neutrophils % Seg Neuts % (Manual) Lymphocytes % (Manual) Seg Neutrophils # PT INR ABG pH POC ABG pCO2 POC ABG pO2 ABG pO2 ABG HCO3 ABG O2 Saturation ABG Base Excess ABG Hemoglobin ABG Oxyhemoglobin ABG Sodium ABG Potassium ABG Chloride ABG Glucose Sodium Potassium Chloride Carbon Dioxide BUN Creatinine Glucose POC Glucose 116 H Lactic Acid Calcium Phosphorus AST Total Creatine Kinase Troponin T HDL Cholesterol Arterial Blood Glucose Arterial Blood Ionized Calcium Urine WBC (Auto) Urine Creatinine
--- NOTE | 2020-10-01 12:32 | Progress Note ---
Assessment and Plan - Patient Problems (1) Acute anoxic encephalopathy Current Visit: Yes Status: Acute (2) Fever Current Visit: Yes Status: Acute (3) Hypernatremia Current Visit: Yes Status: Acute (4) Acute respiratory failure Current Visit: Yes Status: Acute (5) Cardiopulmonary arrest Current Visit: Yes Status: Acute (6) Renal failure Current Visit: Yes Status: Acute Qualifiers: Renal failure chronicity: acute Acute renal failure type: unspecified Qualified Code(s): N17.9 - Acute kidney failure, unspecified Subjective Principal diagnosis: Acute respiratory failure Interval history: on cpap unresponsive Objective Vital Signs - 12hr 10/01/20 10/01/20 10/01/20 01:01 01:26 01:30 Temperature Pulse Rate 81 76 80 Pulse Rate [ From Monitor] Respiratory 27 H 27 H Rate Blood Pressure 109/72 107/67 109/72 O2 Sat by Pulse 95 96 Oximetry 10/01/20 10/01/20 10/01/20 02:01 02:30 02:31 Temperature Pulse Rate 78 78 78 Pulse Rate [ From Monitor] Respiratory 26 H 26 H Rate Blood Pressure 109/67 109/67 109/67 O2 Sat by Pulse 97 97 Oximetry 10/01/20 10/01/20 10/01/20 03:00 03:23 03:31 Temperature Pulse Rate 79 80 80 Pulse Rate [ From Monitor] Respiratory 27 H 28 H Rate Blood Pressure 108/64 108/64 108/64 O2 Sat by Pulse 97 97 97 Oximetry 10/01/20 10/01/20 10/01/20 04:00 04:01 04:30 Temperature 98.9 F Pulse Rate 81 78 79 Pulse Rate [ 81 From Monitor] Respiratory 27 H 27 H Rate Blood Pressure 109/64 109/64 O2 Sat by Pulse 97 97 Oximetry 10/01/20 10/01/20 10/01/20 05:00 05:31 06:00 Temperature Pulse Rate 82 82 84 Pulse Rate [ From Monitor] Respiratory 28 H 28 H 25 H Rate Blood Pressure 112/67 112/67 110/69 O2 Sat by Pulse 98 98 98 Oximetry 10/01/20 10/01/20 10/01/20 06:31 07:00 07:31 Temperature 99.5 F Pulse Rate 79 83 85 Pulse Rate [ From Monitor] Respiratory 27 H 28 H 26 H Rate Blood Pressure 110/69 102/59 102/59 O2 Sat by Pulse 97 97 97 Oximetry 10/01/20 10/01/20 10/01/20 07:36 08:00 08:31 Temperature Pulse Rate 84 87 84 Pulse Rate [ From Monitor] Respiratory 30 H 27 H Rate Blood Pressure 102/59 108/57 108/57 O2 Sat by Pulse 98 98 98 Oximetry 10/01/20 10/01/20 10/01/20 09:00 09:20 09:57 Temperature Pulse Rate 88 88 78 Pulse Rate [ From Monitor] Respiratory 28 H 28 H Rate Blood Pressure 107/65 99/60 107/69 O2 Sat by Pulse 97 98 Oximetry 10/01/20 10/01/20 11:39 12:00 Temperature 98.7 F Pulse Rate 86 Pulse Rate [ From Monitor] Respiratory 27 H Rate Blood Pressure 104/65 O2 Sat by Pulse 99 Oximetry Constitutional: comatose, other (on vent not responsive no sedation on cpap) Eyes: non-icteric ENT: other (intubated, critically ill) Neck: supple Effort: normal Ascultation: Bilateral: clear Percussion: Bilateral: not dull Tactile fremitus: Bilateral: normal Cardiovascular: other (sinus tachycardia) Gastrointestinal: normoactive bowel sounds Integumentary: normal Extremities: no cyanosis, no edema, pink and warm Neurologic: other (comatose/unresponsive) Psychiatric: other (unable to assess) CBC and BMP: 10/01/20 04:15 10/01/20 04:15 ABG, PT/INR, D-dimer: ABG ABG pH 7.445 (7.320-7.450) 10/01/20 00:11 POC ABG pCO2 30.6 mmHg (32.0-48.0) L 10/01/20 00:11 ABG pCO2 40.5 mm Hg 09/21/20 02:15 POC ABG pO2 83.9 mmHg (83-108) 10/01/20 00:11 ABG pO2 244.1 mm Hg (80.0-90.0) H 09/21/20 02:15 POC ABG HCO3 20.6 10/01/20 00:11 ABG O2 Saturation 96.5 (0-100) 10/01/20 00:11 PT/INR, D-dimer PT 15.5 Sec. (12.2-14.9) H 09/22/20 08:26 INR 1.25 (0.87-1.13) H 09/22/20 08:26 Abnormal lab findings: Abnormal Labs 09/20/20 09/20/20 09/20/20 23:02 23:02 23:02 WBC RBC Hgb Hct MCV 96 H RDW 15.8 H Plt Count Lymph % (Auto) [place] % (Auto) Lymph # (Auto) [place] # (Auto) Seg Neutrophils % Seg Neuts % (Manual) 34.0 L Lymphocytes % (Manual) 57.0 H Seg Neutrophils # PT INR 1.14 H ABG pH POC ABG pCO2 POC ABG pO2 ABG pO2 ABG HCO3 ABG O2 Saturation ABG Base Excess ABG Hemoglobin ABG Oxyhemoglobin ABG Sodium ABG Potassium ABG Chloride ABG Glucose Sodium Potassium Chloride Carbon Dioxide 21 L BUN 26 H Creatinine 2.1 H Glucose 227 H POC Glucose Lactic Acid Calcium 10.3 H Phosphorus AST 59 H Total Creatine Kinase Troponin T HDL Cholesterol Arterial Blood Glucose Arterial Blood Ionized Calcium Urine WBC (Auto) Urine Creatinine 09/20/20 09/20/20 09/21/20 23:15 23:35 01:20 WBC RBC Hgb Hct MCV RDW Plt Count Lymph % (Auto) [place] % (Auto) Lymph # (Auto) [place] # (Auto) Seg Neutrophils % Seg Neuts % (Manual) Lymphocytes % (Manual) Seg Neutrophils # PT INR ABG pH POC ABG pCO2 POC ABG pO2 ABG pO2 ABG HCO3 ABG O2 Saturation ABG Base Excess ABG Hemoglobin ABG Oxyhemoglobin ABG Sodium ABG Potassium ABG Chloride ABG Glucose Sodium Potassium Chloride Carbon Dioxide BUN Creatinine Glucose POC Glucose 197 H Lactic Acid 8.70 H* Calcium Phosphorus AST Total Creatine Kinase Troponin T HDL Cholesterol Arterial Blood Glucose Arterial Blood Ionized Calcium Urine WBC (Auto) 47.0 H Urine Creatinine 09/21/20 09/21/20 09/21/20 02:01 02:15 04:25 WBC RBC Hgb Hct MCV RDW Plt Count Lymph % (Auto) [place] % (Auto) Lymph # (Auto) [place] # (Auto) Seg Neutrophils % Seg Neuts % (Manual) Lymphocytes % (Manual) Seg Neutrophils # PT INR ABG pH 7.258 L POC ABG pCO2 POC ABG pO2 ABG pO2 244.1 H ABG HCO3 17.7 L ABG O2 Saturation 99.4 H ABG Base Excess -8.8 L ABG Hemoglobin ABG Oxyhemoglobin ABG Sodium ABG Potassium ABG Chloride ABG Glucose Sodium Potassium Chloride Carbon Dioxide BUN Creatinine Glucose POC Glucose 65 L Lactic Acid Calcium Phosphorus AST Total Creatine Kinase Troponin T 0.865 H* D HDL Cholesterol 60 H Arterial Blood Glucose Arterial Blood Ionized Calcium Urine WBC (Auto) Urine Creatinine 09/21/20 09/21/20 09/21/20 04:34 04:34 07:03 WBC RBC Hgb 16.9 H D Hct 51.3 H D MCV RDW Plt Count Lymph % (Auto) [place] % (Auto) Lymph # (Auto) [place] # (Auto) Seg Neutrophils % Seg Neuts % (Manual) Lymphocytes % (Manual) Seg Neutrophils # PT INR ABG pH POC ABG pCO2 POC ABG pO2 ABG pO2 ABG HCO3 ABG O2 Saturation ABG Base Excess ABG Hemoglobin ABG Oxyhemoglobin ABG Sodium ABG Potassium ABG Chloride ABG Glucose Sodium Potassium Chloride Carbon Dioxide BUN Creatinine Glucose POC Glucose Lactic Acid 3.00 H* Calcium Phosphorus AST Total Creatine Kinase Troponin T 1.880 H* D HDL Cholesterol Arterial Blood Glucose Arterial Blood Ionized Calcium Urine WBC (Auto) Urine Creatinine 09/21/20 09/21/20 09/21/20 07:03 07:32 07:53 WBC 19.2 H RBC 5.31 H Hgb 16.0 H Hct 49.0 H MCV RDW 15.7 H Plt Count Lymph % (Auto) [place] % (Auto) Lymph # (Auto) [place] # (Auto) Seg Neutrophils % Seg Neuts % (Manual) Lymphocytes % (Manual) Seg Neutrophils # PT 16.3 H INR 1.31 H ABG pH POC ABG pCO2 POC ABG pO2 ABG pO2 ABG HCO3 ABG O2 Saturation ABG Base Excess ABG Hemoglobin ABG Oxyhemoglobin ABG Sodium ABG Potassium ABG Chloride ABG Glucose Sodium Potassium Chloride Carbon Dioxide BUN Creatinine Glucose POC Glucose 60 L Lactic Acid Calcium Phosphorus AST Total Creatine Kinase Troponin T HDL Cholesterol Arterial Blood Glucose Arterial Blood Ionized Calcium Urine WBC (Auto) Urine Creatinine 09/21/20 09/21/20 09/21/20 07:53 09:30 10:08 WBC RBC Hgb Hct MCV RDW Plt Count Lymph % (Auto) [place] % (Auto) Lymph # (Auto) [place] # (Auto) Seg Neutrophils % Seg Neuts % (Manual) Lymphocytes % (Manual) Seg Neutrophils # PT 15.4 H INR 1.24 H ABG pH POC ABG pCO2 POC ABG pO2 ABG pO2 ABG HCO3 ABG O2 Saturation ABG Base Excess ABG Hemoglobin ABG Oxyhemoglobin ABG Sodium ABG Potassium ABG Chloride ABG Glucose Sodium 146 H Potassium 3.5 L Chloride 109.6 H Carbon Dioxide 20 L BUN 37 H Creatinine 2.8 H Glucose 127 H POC Glucose Lactic Acid 3.00 H* Calcium Phosphorus AST Total Creatine Kinase Troponin T HDL Cholesterol Arterial Blood Glucose Arterial Blood Ionized Calcium Urine WBC (Auto) Urine Creatinine 09/21/20 09/21/20 09/21/20 10:34 11:22 11:44 WBC RBC Hgb Hct MCV RDW Plt Count Lymph % (Auto) [place] % (Auto) Lymph # (Auto) [place] # (Auto) Seg Neutrophils % Seg Neuts % (Manual) Lymphocytes % (Manual) Seg Neutrophils # PT INR ABG pH POC ABG pCO2 25.9 L POC ABG pO2 196.9 H ABG pO2 ABG HCO3 ABG O2 Saturation ABG Base Excess ABG Hemoglobin ABG Oxyhemoglobin 98.4 H ABG Sodium ABG Potassium 3.3 L ABG Chloride 113.0 H ABG Glucose 130 H Sodium Potassium Chloride Carbon Dioxide BUN Creatinine Glucose POC Glucose 126 H 127 H Lactic Acid Calcium Phosphorus AST Total Creatine Kinase Troponin T HDL Cholesterol Arterial Blood Glucose 130 H Arterial Blood Ionized Calcium Urine WBC (Auto) Urine Creatinine 09/21/20 09/21/20 09/21/20 14:27 14:27 15:09 WBC RBC Hgb Hct MCV RDW Plt Count Lymph % (Auto) [place] % (Auto) Lymph # (Auto) [place] # (Auto) Seg Neutrophils % Seg Neuts % (Manual) Lymphocytes % (Manual) Seg Neutrophils # PT INR ABG pH POC ABG pCO2 POC ABG pO2 ABG pO2 ABG HCO3 ABG O2 Saturation ABG Base Excess ABG Hemoglobin ABG Oxyhemoglobin ABG Sodium ABG Potassium ABG Chloride ABG Glucose Sodium Potassium Chloride Carbon Dioxide BUN Creatinine Glucose POC Glucose 135 H Lactic Acid Calcium Phosphorus AST Total Creatine Kinase Troponin T HDL Cholesterol Arterial Blood Glucose Arterial Blood Ionized Calcium Urine WBC (Auto) 12.0 H Urine Creatinine 60.4 H 09/21/20 09/21/20 09/21/20 15:54 15:54 16:13 WBC RBC Hgb Hct MCV RDW Plt Count Lymph % (Auto) [place] % (Auto) Lymph # (Auto) [place] # (Auto) Seg Neutrophils % Seg Neuts % (Manual) Lymphocytes % (Manual) Seg Neutrophils # PT INR ABG pH POC ABG pCO2 POC ABG pO2 ABG pO2 ABG HCO3 ABG O2 Saturation ABG Base Excess ABG Hemoglobin ABG Oxyhemoglobin ABG Sodium ABG Potassium ABG Chloride ABG Glucose Sodium Potassium Chloride Carbon Dioxide BUN Creatinine Glucose POC Glucose 131 H Lactic Acid 3.60 H* Calcium Phosphorus AST Total Creatine Kinase 3606 H Troponin T HDL Cholesterol Arterial Blood Glucose Arterial Blood Ionized Calcium Urine WBC (Auto) Urine Creatinine 09/21/20 09/21/20 09/21/20 18:02 19:48 20:57 WBC RBC Hgb Hct MCV RDW Plt Count Lymph % (Auto) [place] % (Auto) Lymph # (Auto) [place] # (Auto) Seg Neutrophils % Seg Neuts % (Manual) Lymphocytes % (Manual) Seg Neutrophils # PT INR ABG pH POC ABG pCO2 POC ABG pO2 ABG pO2 ABG HCO3 ABG O2 Saturation ABG Base Excess ABG Hemoglobin ABG Oxyhemoglobin ABG Sodium ABG Potassium ABG Chloride ABG Glucose Sodium Potassium Chloride Carbon Dioxide BUN Creatinine Glucose POC Glucose 139 H 184 H 173 H Lactic Acid Calcium Phosphorus AST Total Creatine Kinase Troponin T HDL Cholesterol Arterial Blood Glucose Arterial Blood Ionized Calcium Urine WBC (Auto) Urine Creatinine 09/21/20 09/21/20 09/21/20 22:02 22:27 23:54 WBC RBC Hgb Hct MCV RDW Plt Count Lymph % (Auto) [place] % (Auto) Lymph # (Auto) [place] # (Auto) Seg Neutrophils % Seg Neuts % (Manual) Lymphocytes % (Manual) Seg Neutrophils # PT INR ABG pH POC ABG pCO2 POC ABG pO2 ABG pO2 ABG HCO3 ABG O2 Saturation ABG Base Excess ABG Hemoglobin ABG Oxyhemoglobin ABG Sodium ABG Potassium ABG Chloride ABG Glucose Sodium Potassium Chloride Carbon Dioxide BUN Creatinine Glucose POC Glucose 147 H 142 H 143 H Lactic Acid Calcium Phosphorus AST Total Creatine Kinase Troponin T HDL Cholesterol Arterial Blood Glucose Arterial Blood Ionized Calcium Urine WBC (Auto) Urine Creatinine 09/22/20 09/22/20 09/22/20 00:49 02:01 02:14 WBC RBC Hgb Hct MCV RDW Plt Count Lymph % (Auto) [place] % (Auto) Lymph # (Auto) [place] # (Auto) Seg Neutrophils % Seg Neuts % (Manual) Lymphocytes % (Manual) Seg Neutrophils # PT INR ABG pH POC ABG pCO2 POC ABG pO2 ABG pO2 ABG HCO3 ABG O2 Saturation ABG Base Excess ABG Hemoglobin ABG Oxyhemoglobin ABG Sodium ABG Potassium ABG Chloride ABG Glucose Sodium Potassium Chloride Carbon Dioxide BUN Creatinine Glucose POC Glucose 154 H 154 H 149 H Lactic Acid Calcium Phosphorus AST Total Creatine Kinase Troponin T HDL Cholesterol Arterial Blood Glucose Arterial Blood Ionized Calcium Urine WBC (Auto) Urine Creatinine 09/22/20 09/22/20 09/22/20 02:57 03:21 03:58 WBC RBC Hgb Hct MCV RDW Plt Count Lymph % (Auto) [place] % (Auto) Lymph # (Auto) [place] # (Auto) Seg Neutrophils % Seg Neuts % (Manual) Lymphocytes % (Manual) Seg Neutrophils # PT INR ABG pH 7.496 H POC ABG pCO2 25.0 L POC ABG pO2 73.8 L ABG pO2 ABG HCO3 ABG O2 Saturation ABG Base Excess ABG Hemoglobin ABG Oxyhemoglobin ABG Sodium ABG Potassium ABG Chloride 115.0 H ABG Glucose 154 H Sodium Potassium Chloride Carbon Dioxide BUN Creatinine Glucose POC Glucose 166 H 158 H Lactic Acid Calcium Phosphorus AST Total Creatine Kinase Troponin T HDL Cholesterol Arterial Blood Glucose 154 H Arterial Blood Ionized Calcium 4.5 L Urine WBC (Auto) Urine Creatinine 09/22/20 09/22/20 09/22/20 05:06 05:56 06:50 WBC RBC Hgb Hct MCV RDW Plt Count Lymph % (Auto) [place] % (Auto) Lymph # (Auto) [place] # (Auto) Seg Neutrophils % Seg Neuts % (Manual) Lymphocytes % (Manual) Seg Neutrophils # PT INR ABG pH POC ABG pCO2 POC ABG pO2 ABG pO2 ABG HCO3 ABG O2 Saturation ABG Base Excess ABG Hemoglobin ABG Oxyhemoglobin ABG Sodium ABG Potassium ABG Chloride ABG Glucose Sodium Potassium Chloride Carbon Dioxide BUN Creatinine Glucose POC Glucose 147 H 145 H 137 H Lactic Acid Calcium Phosphorus AST Total Creatine Kinase Troponin T HDL Cholesterol Arterial Blood Glucose Arterial Blood Ionized Calcium Urine WBC (Auto) Urine Creatinine 09/22/20 09/22/20 09/22/20 08:02 08:26 08:26 WBC 15.2 H RBC Hgb Hct MCV RDW 16.0 H Plt Count Lymph % (Auto) 7.[address] [place] % (Auto) Lymph # (Auto) [place] # (Auto) 1.0 H Seg Neutrophils % 86.0 H Seg Neuts % (Manual) Lymphocytes % (Manual) Seg Neutrophils # 13.0 H PT 15.5 H INR 1.25 H ABG pH POC ABG pCO2 POC ABG pO2 ABG pO2 ABG HCO3 ABG O2 Saturation ABG Base Excess ABG Hemoglobin ABG Oxyhemoglobin ABG Sodium ABG Potassium ABG Chloride ABG Glucose Sodium Potassium Chloride Carbon Dioxide BUN Creatinine Glucose POC Glucose 149 H Lactic Acid Calcium Phosphorus AST Total Creatine Kinase Troponin T HDL Cholesterol Arterial Blood Glucose Arterial Blood Ionized Calcium Urine WBC (Auto) Urine Creatinine 09/22/20 09/22/20 09/22/20 08:26 12:04 15:55 WBC RBC Hgb Hct MCV RDW Plt Count Lymph % (Auto) [place] % (Auto) Lymph # (Auto) [place] # (Auto) Seg Neutrophils % Seg Neuts % (Manual) Lymphocytes % (Manual) Seg Neutrophils # PT INR ABG pH POC ABG pCO2 POC ABG pO2 ABG pO2 ABG HCO3 ABG O2 Saturation ABG Base Excess ABG Hemoglobin ABG Oxyhemoglobin ABG Sodium ABG Potassium ABG Chloride ABG Glucose Sodium 146 H Potassium 3.5 L Chloride 114.0 H Carbon Dioxide 18 L BUN 46 H Creatinine 3.7 H Glucose 134 H POC Glucose 138 H 123 H Lactic Acid Calcium 7.7 L Phosphorus AST Total Creatine Kinase Troponin T HDL Cholesterol Arterial Blood Glucose Arterial Blood Ionized Calcium Urine WBC (Auto) Urine Creatinine 09/22/20 09/22/20 09/23/20 21:57 23:41 03:30 WBC 14.2 H RBC Hgb Hct MCV RDW 16.5 H Plt Count 126 L Lymph % (Auto) 8.[address] [place] % (Auto) 7.8 H Lymph # (Auto) [place] # (Auto) 1.1 H Seg Neutrophils % 83.8 H Seg Neuts % (Manual) Lymphocytes % (Manual) Seg Neutrophils # 11.9 H PT INR ABG pH POC ABG pCO2 POC ABG pO2 ABG pO2 ABG HCO3 ABG O2 Saturation ABG Base Excess ABG Hemoglobin ABG Oxyhemoglobin ABG Sodium ABG Potassium ABG Chloride ABG Glucose Sodium Potassium Chloride Carbon Dioxide BUN Creatinine Glucose POC Glucose 124 H 130 H Lactic Acid Calcium Phosphorus AST Total Creatine Kinase Troponin T HDL Cholesterol Arterial Blood Glucose Arterial Blood Ionized Calcium Urine WBC (Auto) Urine Creatinine 09/23/20 09/23/20 09/23/20 03:30 03:45 12:33 WBC RBC Hgb Hct MCV RDW Plt Count Lymph % (Auto) [place] % (Auto) Lymph # (Auto) [place] # (Auto) Seg Neutrophils % Seg Neuts % (Manual) Lymphocytes % (Manual) Seg Neutrophils # PT INR ABG pH POC ABG pCO2 POC ABG pO2 ABG pO2 ABG HCO3 ABG O2 Saturation ABG Base Excess ABG Hemoglobin ABG Oxyhemoglobin ABG Sodium ABG Potassium ABG Chloride ABG Glucose Sodium Potassium Chloride 110.4 H Carbon Dioxide 19 L BUN 56 H Creatinine 4.7 H Glucose 148 H POC Glucose 132 H 139 H Lactic Acid Calcium 7.4 L Phosphorus 5.80 H D AST Total Creatine Kinase Troponin T HDL Cholesterol Arterial Blood Glucose Arterial Blood Ionized Calcium Urine WBC (Auto) Urine Creatinine 09/23/20 09/23/20 09/24/20 17:54 23:18 02:57 WBC RBC Hgb Hct MCV RDW Plt Count Lymph % (Auto) [place] % (Auto) Lymph # (Auto) [place] # (Auto) Seg Neutrophils % Seg Neuts % (Manual) Lymphocytes % (Manual) Seg Neutrophils # PT INR ABG pH POC ABG pCO2 30.0 L POC ABG pO2 75.1 L ABG pO2 ABG HCO3 ABG O2 Saturation ABG Base Excess ABG Hemoglobin ABG Oxyhemoglobin ABG Sodium 149.5 H ABG Potassium ABG Chloride 119.0 H ABG Glucose 144 H Sodium Potassium Chloride Carbon Dioxide BUN Creatinine Glucose POC Glucose 115 H 139 H Lactic Acid Calcium Phosphorus AST Total Creatine Kinase Troponin T HDL Cholesterol Arterial Blood Glucose 144 H Arterial Blood Ionized Calcium Urine WBC (Auto) Urine Creatinine 09/24/20 09/24/20 09/24/20 04:20 04:30 05:10 WBC 14.3 H RBC Hgb Hct MCV RDW 16.6 H Plt Count 135 L Lymph % (Auto) 5.[address] [place] % (Auto) Lymph # (Auto) 0.[address] [place] # (Auto) 0.9 H Seg Neutrophils % 87.5 H Seg Neuts % (Manual) Lymphocytes % (Manual) Seg Neutrophils # 12.5 H PT INR ABG pH POC ABG pCO2 POC ABG pO2 ABG pO2 ABG HCO3 ABG O2 Saturation ABG Base Excess ABG Hemoglobin ABG Oxyhemoglobin ABG Sodium ABG Potassium ABG Chloride ABG Glucose Sodium 147 H Potassium Chloride 114.4 H Carbon Dioxide 19 L BUN 50 H Creatinine 3.2 H Glucose 142 H POC Glucose 137 H Lactic Acid Calcium 8.3 L Phosphorus AST Total Creatine Kinase Troponin T HDL Cholesterol Arterial Blood Glucose Arterial Blood Ionized Calcium Urine WBC (Auto) Urine Creatinine 09/24/20 09/24/20 09/24/20 12:03 17:39 23:15 WBC RBC Hgb Hct MCV RDW Plt Count Lymph % (Auto) [place] % (Auto) Lymph # (Auto) [place] # (Auto) Seg Neutrophils % Seg Neuts % (Manual) Lymphocytes % (Manual) Seg Neutrophils # PT INR ABG pH POC ABG pCO2 POC ABG pO2 ABG pO2 ABG HCO3 ABG O2 Saturation ABG Base Excess ABG Hemoglobin ABG Oxyhemoglobin ABG Sodium ABG Potassium ABG Chloride ABG Glucose Sodium Potassium Chloride Carbon Dioxide BUN Creatinine Glucose POC Glucose 120 H 155 H 109 H Lactic Acid Calcium Phosphorus AST Total Creatine Kinase Troponin T HDL Cholesterol Arterial Blood Glucose Arterial Blood Ionized Calcium Urine WBC (Auto) Urine Creatinine 09/25/20 09/25/20 09/25/20 03:02 05:16 07:50 WBC 14.0 H RBC Hgb Hct MCV RDW 16.5 H Plt Count Lymph % (Auto) 6.[address] [place] % (Auto) 9.1 H Lymph # (Auto) 0.[address] [place] # (Auto) 1.3 H Seg Neutrophils % 84.1 H Seg Neuts % (Manual) Lymphocytes % (Manual) Seg Neutrophils # 11.8 H PT INR ABG pH POC ABG pCO2 POC ABG pO2 67.4 L ABG pO2 ABG HCO3 ABG O2 Saturation ABG Base Excess ABG Hemoglobin ABG Oxyhemoglobin 92.3 L ABG Sodium 157.3 H ABG Potassium ABG Chloride 125.0 H ABG Glucose 147 H Sodium Potassium Chloride Carbon Dioxide BUN Creatinine Glucose POC Glucose 126 H Lactic Acid Calcium Phosphorus AST Total Creatine Kinase Troponin T HDL Cholesterol Arterial Blood Glucose 147 H Arterial Blood Ionized Calcium Urine WBC (Auto) Urine Creatinine 09/25/20 09/25/20 09/25/20 07:50 11:56 14:50 WBC RBC Hgb Hct MCV RDW Plt Count Lymph % (Auto) [place] % (Auto) Lymph # (Auto) [place] # (Auto) Seg Neutrophils % Seg Neuts % (Manual) Lymphocytes % (Manual) Seg Neutrophils # PT INR ABG pH POC ABG pCO2 POC ABG pO2 ABG pO2 ABG HCO3 ABG O2 Saturation ABG Base Excess ABG Hemoglobin ABG Oxyhemoglobin ABG Sodium ABG Potassium ABG Chloride ABG Glucose Sodium 160 H D 160 H Potassium Chloride 124.2 H Carbon Dioxide BUN 54 H Creatinine 2.8 H Glucose 124 H POC Glucose 109 H Lactic Acid Calcium 8.3 L Phosphorus AST Total Creatine Kinase Troponin T HDL Cholesterol Arterial Blood Glucose Arterial Blood Ionized Calcium Urine WBC (Auto) Urine Creatinine 09/25/20 09/25/20 09/25/20 18:02 19:45 23:02 WBC RBC Hgb Hct MCV RDW Plt Count Lymph % (Auto) [place] % (Auto) Lymph # (Auto) [place] # (Auto) Seg Neutrophils % Seg Neuts % (Manual) Lymphocytes % (Manual) Seg Neutrophils # PT INR ABG pH POC ABG pCO2 POC ABG pO2 ABG pO2 ABG HCO3 ABG O2 Saturation ABG Base Excess ABG Hemoglobin ABG Oxyhemoglobin ABG Sodium ABG Potassium ABG Chloride ABG Glucose Sodium 162 H* 160 H Potassium Chloride Carbon Dioxide BUN Creatinine Glucose POC Glucose 113 H Lactic Acid Calcium Phosphorus AST Total Creatine Kinase Troponin T HDL Cholesterol Arterial Blood Glucose Arterial Blood Ionized Calcium Urine WBC (Auto) Urine Creatinine 09/25/20 09/26/20 09/26/20 23:17 03:30 04:17 WBC 13.9 H RBC Hgb Hct MCV RDW 16.2 H Plt Count 133 L Lymph % (Auto) 7.[address] [place] % (Auto) 11.2 H Lymph # (Auto) 1.[address] [place] # (Auto) 1.6 H Seg Neutrophils % 81.0 H Seg Neuts % (Manual) Lymphocytes % (Manual) Seg Neutrophils # 11.3 H PT INR ABG pH 7.472 H POC ABG pCO2 31.1 L POC ABG pO2 56.5 L ABG pO2 ABG HCO3 ABG O2 Saturation ABG Base Excess ABG Hemoglobin ABG Oxyhemoglobin 91.3 L ABG Sodium 159.9 H ABG Potassium ABG Chloride 129.0 H ABG Glucose 135 H Sodium Potassium Chloride Carbon Dioxide BUN Creatinine Glucose POC Glucose 119 H Lactic Acid Calcium Phosphorus AST Total Creatine Kinase Troponin T HDL Cholesterol Arterial Blood Glucose 135 H Arterial Blood Ionized Calcium Urine WBC (Auto) Urine Creatinine 09/26/20 09/26/20 09/26/20 04:17 05:34 11:44 WBC RBC Hgb Hct MCV RDW Plt Count Lymph % (Auto) [place] % (Auto) Lymph # (Auto) [place] # (Auto) Seg Neutrophils % Seg Neuts % (Manual) Lymphocytes % (Manual) Seg Neutrophils # PT INR ABG pH POC ABG pCO2 POC ABG pO2 ABG pO2 ABG HCO3 ABG O2 Saturation ABG Base Excess ABG Hemoglobin ABG Oxyhemoglobin ABG Sodium ABG Potassium ABG Chloride ABG Glucose Sodium 162 H* Potassium Chloride 128.4 H Carbon Dioxide BUN 56 H Creatinine 2.5 H Glucose 128 H POC Glucose 135 H 141 H Lactic Acid Calcium Phosphorus 2.00 L D AST Total Creatine Kinase Troponin T HDL Cholesterol Arterial Blood Glucose Arterial Blood Ionized Calcium Urine WBC (Auto) Urine Creatinine 09/26/20 09/26/20 09/26/20 12:12 13:38 17:46 WBC RBC Hgb Hct MCV RDW Plt Count Lymph % (Auto) [place] % (Auto) Lymph # (Auto) [place] # (Auto) Seg Neutrophils % Seg Neuts % (Manual) Lymphocytes % (Manual) Seg Neutrophils # PT INR ABG pH POC ABG pCO2 POC ABG pO2 ABG pO2 ABG HCO3 ABG O2 Saturation ABG Base Excess ABG Hemoglobin ABG Oxyhemoglobin ABG Sodium ABG Potassium ABG Chloride ABG Glucose Sodium 160 H Potassium Chloride 127.2 H Carbon Dioxide BUN 60 H Creatinine 2.5 H Glucose 137 H POC Glucose 119 H Lactic Acid Calcium Phosphorus AST Total Creatine Kinase Troponin T HDL Cholesterol Arterial Blood Glucose Arterial Blood Ionized Calcium Urine WBC (Auto) 8.0 H Urine Creatinine 09/26/20 09/27/20 09/27/20 22:25 00:01 00:30 WBC RBC Hgb Hct MCV RDW Plt Count Lymph % (Auto) [place] % (Auto) Lymph # (Auto) [place] # (Auto) Seg Neutrophils % Seg Neuts % (Manual) Lymphocytes % (Manual) Seg Neutrophils # PT INR ABG pH POC ABG pCO2 POC ABG pO2 ABG pO2 ABG HCO3 ABG O2 Saturation ABG Base Excess ABG Hemoglobin ABG Oxyhemoglobin ABG Sodium ABG Potassium ABG Chloride ABG Glucose Sodium 161 H* 163 H* Potassium Chloride 129.3 H Carbon Dioxide BUN 61 H Creatinine 2.6 H Glucose 146 H POC Glucose 156 H Lactic Acid Calcium Phosphorus AST Total Creatine Kinase Troponin T HDL Cholesterol Arterial Blood Glucose Arterial Blood Ionized Calcium Urine WBC (Auto) Urine Creatinine 09/27/20 09/27/20 09/27/20 03:18 04:40 04:40 WBC 13.8 H RBC Hgb Hct MCV RDW 15.9 H Plt Count 123 L Lymph % (Auto) 7.[address] [place] % (Auto) 10.2 H Lymph # (Auto) 1.[address] [place] # (Auto) 1.4 H Seg Neutrophils % 81.5 H Seg Neuts % (Manual) Lymphocytes % (Manual) Seg Neutrophils # 11.2 H PT INR ABG pH POC ABG pCO2 POC ABG pO2 70.0 L ABG pO2 ABG HCO3 ABG O2 Saturation ABG Base Excess ABG Hemoglobin ABG Oxyhemoglobin ABG Sodium 160.6 H ABG Potassium ABG Chloride 130.0 H ABG Glucose 139 H Sodium 162 H* Potassium Chloride 128.9 H Carbon Dioxide BUN 63 H Creatinine 2.6 H Glucose 128 H POC Glucose Lactic Acid Calcium 8.3 L Phosphorus AST Total Creatine Kinase Troponin T HDL Cholesterol Arterial Blood Glucose 139 H Arterial Blood Ionized Calcium Urine WBC (Auto) Urine Creatinine 09/27/20 09/27/20 09/27/20 05:55 10:15 11:33 WBC RBC Hgb Hct MCV RDW Plt Count Lymph % (Auto) [place] % (Auto) Lymph # (Auto) [place] # (Auto) Seg Neutrophils % Seg Neuts % (Manual) Lymphocytes % (Manual) Seg Neutrophils # PT INR ABG pH POC ABG pCO2 POC ABG pO2 ABG pO2 ABG HCO3 ABG O2 Saturation ABG Base Excess ABG Hemoglobin ABG Oxyhemoglobin ABG Sodium ABG Potassium ABG Chloride ABG Glucose Sodium 164 H* Potassium 3.5 L Chloride 131.3 H Carbon Dioxide BUN 63 H Creatinine 2.7 H Glucose 147 H POC Glucose 116 H 131 H Lactic Acid Calcium Phosphorus AST Total Creatine Kinase Troponin T HDL Cholesterol Arterial Blood Glucose Arterial Blood Ionized Calcium Urine WBC (Auto) Urine Creatinine 09/27/20 09/28/20 09/28/20 17:21 00:10 03:20 WBC RBC Hgb Hct MCV RDW Plt Count Lymph % (Auto) [place] % (Auto) Lymph # (Auto) [place] # (Auto) Seg Neutrophils % Seg Neuts % (Manual) Lymphocytes % (Manual) Seg Neutrophils # PT INR ABG pH POC ABG pCO2 30.0 L POC ABG pO2 72.7 L ABG pO2 ABG HCO3 ABG O2 Saturation ABG Base Excess ABG Hemoglobin ABG Oxyhemoglobin ABG Sodium 159.8 H ABG Potassium ABG Chloride 131.0 H ABG Glucose 156 H Sodium Potassium Chloride Carbon Dioxide BUN Creatinine Glucose POC Glucose 151 H 125 H Lactic Acid Calcium Phosphorus AST Total Creatine Kinase Troponin T HDL Cholesterol Arterial Blood Glucose 156 H Arterial Blood Ionized Calcium Urine WBC (Auto) Urine Creatinine 09/28/20 09/28/20 09/28/20 04:29 04:29 05:16 WBC 16.7 H RBC Hgb Hct MCV RDW 16.4 H Plt Count 123 L Lymph % (Auto) 6.[address] [place] % (Auto) Lymph # (Auto) 1.[address] [place] # (Auto) 1.1 H Seg Neutrophils % 86.5 H Seg Neuts % (Manual) Lymphocytes % (Manual) Seg Neutrophils # 14.4 H PT INR ABG pH POC ABG pCO2 POC ABG pO2 ABG pO2 ABG HCO3 ABG O2 Saturation ABG Base Excess ABG Hemoglobin ABG Oxyhemoglobin ABG Sodium ABG Potassium ABG Chloride ABG Glucose Sodium 162 H* Potassium Chloride 128.7 H Carbon Dioxide 21 L BUN 73 H Creatinine 2.8 H Glucose 166 H POC Glucose 135 H Lactic Acid Calcium Phosphorus AST Total Creatine Kinase Troponin T HDL Cholesterol Arterial Blood Glucose Arterial Blood Ionized Calcium Urine WBC (Auto) Urine Creatinine 09/28/20 09/28/20 09/28/20 12:01 12:51 17:43 WBC RBC Hgb Hct MCV RDW Plt Count Lymph % (Auto) [place] % (Auto) Lymph # (Auto) [place] # (Auto) Seg Neutrophils % Seg Neuts % (Manual) Lymphocytes % (Manual) Seg Neutrophils # PT INR ABG pH POC ABG pCO2 POC ABG pO2 ABG pO2 ABG HCO3 ABG O2 Saturation ABG Base Excess ABG Hemoglobin ABG Oxyhemoglobin ABG Sodium ABG Potassium ABG Chloride ABG Glucose Sodium 161 H* Potassium Chloride 129.8 H Carbon Dioxide 20 L BUN 80 H Creatinine 2.9 H Glucose 139 H POC Glucose 115 H 119 H Lactic Acid Calcium 8.3 L Phosphorus AST Total Creatine Kinase Troponin T HDL Cholesterol Arterial Blood Glucose Arterial Blood Ionized Calcium Urine WBC (Auto) Urine Creatinine 09/28/20 09/29/20 09/29/20 23:26 00:50 05:13 WBC RBC Hgb Hct MCV RDW Plt Count Lymph % (Auto) [place] % (Auto) Lymph # (Auto) [place] # (Auto) Seg Neutrophils % Seg Neuts % (Manual) Lymphocytes % (Manual) Seg Neutrophils # PT INR ABG pH POC ABG pCO2 POC ABG pO2 ABG pO2 ABG HCO3 ABG O2 Saturation ABG Base Excess ABG Hemoglobin ABG Oxyhemoglobin ABG Sodium ABG Potassium ABG Chloride ABG Glucose Sodium 164 H* Potassium Chloride 128.9 H Carbon Dioxide BUN 84 H Creatinine 3.1 H Glucose 125 H POC Glucose 121 H 116 H Lactic Acid Calcium Phosphorus AST Total Creatine Kinase Troponin T HDL Cholesterol Arterial Blood Glucose Arterial Blood Ionized Calcium Urine WBC (Auto) Urine Creatinine 09/29/20 09/29/20 09/29/20 07:24 07:24 11:25 WBC 17.2 H RBC Hgb 11.5 L Hct 35.1 L MCV RDW 16.0 H Plt Count 114 L Lymph % (Auto) [place] % (Auto) Lymph # (Auto) [place] # (Auto) Seg Neutrophils % Seg Neuts % (Manual) Lymphocytes % (Manual) Seg Neutrophils # PT INR ABG pH POC ABG pCO2 POC ABG pO2 ABG pO2 ABG HCO3 ABG O2 Saturation ABG Base Excess ABG Hemoglobin ABG Oxyhemoglobin ABG Sodium ABG Potassium ABG Chloride ABG Glucose Sodium 167 H* Potassium Chloride 133.5 H Carbon Dioxide BUN 95 H Creatinine 3.1 H Glucose 157 H POC Glucose 118 H Lactic Acid Calcium Phosphorus AST Total Creatine Kinase Troponin T HDL Cholesterol Arterial Blood Glucose Arterial Blood Ionized Calcium Urine WBC (Auto) Urine Creatinine 09/29/20 09/29/20 09/29/20 12:52 18:12 21:16 WBC RBC Hgb Hct MCV RDW Plt Count Lymph % (Auto) [place] % (Auto) Lymph # (Auto) [place] # (Auto) Seg Neutrophils % Seg Neuts % (Manual) Lymphocytes % (Manual) Seg Neutrophils # PT INR ABG pH POC ABG pCO2 POC ABG pO2 ABG pO2 ABG HCO3 ABG O2 Saturation ABG Base Excess ABG Hemoglobin ABG Oxyhemoglobin ABG Sodium ABG Potassium ABG Chloride ABG Glucose Sodium 167 H* 162 H* Potassium 3.5 L Chloride 133.3 H 126.6 H Carbon Dioxide BUN 93 H 92 H Creatinine 3.0 H 2.8 H Glucose 130 H 147 H POC Glucose 133 H Lactic Acid Calcium 8.3 L Phosphorus AST Total Creatine Kinase Troponin T HDL Cholesterol Arterial Blood Glucose Arterial Blood Ionized Calcium Urine WBC (Auto) Urine Creatinine 09/29/20 09/30/20 09/30/20 23:35 00:27 02:59 WBC RBC Hgb Hct MCV RDW Plt Count Lymph % (Auto) [place] % (Auto) Lymph # (Auto) [place] # (Auto) Seg Neutrophils % Seg Neuts % (Manual) Lymphocytes % (Manual) Seg Neutrophils # PT INR ABG pH POC ABG pCO2 28.6 L POC ABG pO2 70.4 L ABG pO2 ABG HCO3 ABG O2 Saturation ABG Base Excess ABG Hemoglobin ABG Oxyhemoglobin 93.7 L ABG Sodium 158.6 H ABG Potassium 3.3 L ABG Chloride 127.0 H ABG Glucose 167 H Sodium 162 H* Potassium 3.5 L Chloride 127.6 H Carbon Dioxide 21 L BUN 87 H Creatinine 2.7 H Glucose 147 H POC Glucose 117 H Lactic Acid Calcium Phosphorus AST Total Creatine Kinase Troponin T HDL Cholesterol Arterial Blood Glucose 167 H Arterial Blood Ionized Calcium Urine WBC (Auto) Urine Creatinine 09/30/20 09/30/20 09/30/20 04:40 05:13 05:25 WBC RBC Hgb Hct MCV RDW Plt Count Lymph % (Auto) [place] % (Auto) Lymph # (Auto) [place] # (Auto) Seg Neutrophils % Seg Neuts % (Manual) Lymphocytes % (Manual) Seg Neutrophils # PT INR ABG pH POC ABG pCO2 POC ABG pO2 ABG pO2 ABG HCO3 ABG O2 Saturation ABG Base Excess ABG Hemoglobin ABG Oxyhemoglobin ABG Sodium ABG Potassium ABG Chloride ABG Glucose Sodium 162 H* Potassium Chloride 127.2 H Carbon Dioxide 20 L BUN 89 H Creatinine 2.8 H Glucose 132 H POC Glucose 43 L 143 H Lactic Acid Calcium 8.1 L Phosphorus AST Total Creatine Kinase Troponin T HDL Cholesterol Arterial Blood Glucose Arterial Blood Ionized Calcium Urine WBC (Auto) Urine Creatinine 09/30/20 09/30/20 09/30/20 11:14 13:37 20:32 WBC RBC Hgb Hct MCV RDW Plt Count Lymph % (Auto) [place] % (Auto) Lymph # (Auto) [place] # (Auto) Seg Neutrophils % Seg Neuts % (Manual) Lymphocytes % (Manual) Seg Neutrophils # PT INR ABG pH POC ABG pCO2 POC ABG pO2 ABG pO2 ABG HCO3 ABG O2 Saturation ABG Base Excess ABG Hemoglobin ABG Oxyhemoglobin ABG Sodium ABG Potassium ABG Chloride ABG Glucose Sodium 155 H 156 H Potassium Chloride 123.8 H 123.2 H Carbon Dioxide 20 L 21 L BUN 86 H 77 H Creatinine 2.4 H 2.3 H Glucose 135 H 119 H POC Glucose 125 H Lactic Acid Calcium 8.2 L Phosphorus AST Total Creatine Kinase Troponin T HDL Cholesterol Arterial Blood Glucose Arterial Blood Ionized Calcium Urine WBC (Auto) Urine Creatinine 10/01/20 10/01/20 10/01/20 00:11 04:15 04:15 WBC 11.8 H RBC Hgb 11.7 L Hct 35.2 L MCV RDW Plt Count 107 L Lymph % (Auto) [place] % (Auto) Lymph # (Auto) [place] # (Auto) Seg Neutrophils % Seg Neuts % (Manual) Lymphocytes % (Manual) Seg Neutrophils # PT INR ABG pH POC ABG pCO2 30.6 L POC ABG pO2 ABG pO2 ABG HCO3 ABG O2 Saturation ABG Base Excess ABG Hemoglobin 11.5 L ABG Oxyhemoglobin ABG Sodium 156.2 H ABG Potassium 3.3 L ABG Chloride 124.0 H ABG Glucose 156 H Sodium 155 H Potassium 3.4 L Chloride 123.1 H Carbon Dioxide 21 L BUN 77 H Creatinine 2.1 H Glucose 153 H POC Glucose Lactic Acid Calcium Phosphorus AST Total Creatine Kinase Troponin T HDL Cholesterol Arterial Blood Glucose 156 H Arterial Blood Ionized Calcium Urine WBC (Auto) Urine Creatinine 10/01/20 05:18 WBC RBC Hgb Hct MCV RDW Plt Count Lymph % (Auto) [place] % (Auto) Lymph # (Auto) [place] # (Auto) Seg Neutrophils % Seg Neuts % (Manual) Lymphocytes % (Manual) Seg Neutrophils # PT INR ABG pH POC ABG pCO2 POC ABG pO2 ABG pO2 ABG HCO3 ABG O2 Saturation ABG Base Excess ABG Hemoglobin ABG Oxyhemoglobin ABG Sodium ABG Potassium ABG Chloride ABG Glucose Sodium Potassium Chloride Carbon Dioxide BUN Creatinine Glucose POC Glucose 116 H Lactic Acid Calcium Phosphorus AST Total Creatine Kinase Troponin T HDL Cholesterol Arterial Blood Glucose Arterial Blood Ionized Calcium Urine WBC (Auto) Urine Creatinine
--- NOTE | 2020-10-01 13:44 | Progress Note ---
Assessment and Plan Cultures: SARS-CoV-2 PCR negative. Sputum culture 09/20/2020 upper respiratory misha. Urine culture 09/20/2020 10-100,000 mixed colonies. Blood culture 09/21/2020 no growth today. Blood culture 09/25/2020 no growth today Tracheal aspirate culture 09/25/2020 MRSA MRSA PCR positive Tracheal aspirate culture 09/26/2020 MRSA Assessment: 50-year-old male with history of hypertension, admitted on 09/20/2020 secondary to syncope followed up by outside cardiac arrest: #SIRS rule out sepsis: fever resolving likely due to MRSA VAP; likely secondary to [id number] cardiac arrest +/-UTI. Chest x-ray without evidence of consolidation. Blood culture so far negative. #MRSA VAP: Tracheal aspirate grew MRSA x2. Was on linezolid for 3 days. Platelets dropping will switched to vancomycin. #UTI: Urine culture grew mixed bacteria. Completed Rocephin for 5 days. #[id number]hospital cardiac arrest: per cards #Acute encephalopathy: Likely secondary to anoxic brain injury. Brain MRI shows diffuse cerebral cortical restricted diffuse edema consistent with anoxic brain. #Cardiomyopathy: Transthoracic echo shows severely dilated left ventricle, the ventricle systolic function severely decreased, borderline concentric left ventricle hypertrophy, severe global hypokinesis of the left ventricle, LVEF 10 to 15%, mild MR. Cardiology on board. #JAMEY: Better #Transaminitis: Likely due to sepsis. #Thrombocytopenia: continue to worse Recommendations -Continue vancomycin renally adjusted D5 of 10 for MRSA VAP -Monitor platelets -Fever resolving -Neuro evaluation, some improvement, repeat CT head and EEG per neuro Guarded prognosis Will follow. Briseida Antonio MD Infectious Diseases Claims Support Specialist [facility], [place], [facility] ([facility]) M [phone] O [phone] Subjective Date of service: 10/01/20 Principal diagnosis: Acute respiratory failure Interval history: Remains intubated, noted opening eyes, fever trending down. Objective - Exam Narrative Exam: General appearance: Intubated unresponsive eyes opening some tracking Eyes: anicteric sclerae, moist conjunctivae; no lid-lag; PERRLA HENT: Normocephalic, Atraumatic; normal external ears, nares open, oropharynx endotracheal tube in place creamy secretions Neck: supple, tracheal midline, no JVD Lungs: Bilateral rhonchi CV: RRR no murmur Abdomen: Soft, non-tender; no masses or hepatosplenomegaly Extremities: no edema, no cyanosis Skin: No rash. Psych: Unresponsive Neuro: somnolent eye opening - Constitutional Vitals: Vital Signs Temp Pulse Resp BP Pulse Ox 98.7 F 80 27 H 105/65 98 10/01/20 12:00 10/01/20 13:14 10/01/20 13:00 10/01/20 13:14 10/01/20 13:00 Temperature -Last 24 Hours Temperature 98.7 F Temperature 99.5 F Temperature 98.9 F Temperature 99.1 F Temperature 100.3 F Temperature 98.5 F - Labs CBC & Chem 7: 10/01/20 04:15 10/01/20 04:15 Labs: Abnormal lab results 09/30/20 09/30/20 09/30/20 Range/Units 11:14 13:37 20:32 WBC (4.5-11.0) K/mm3 Hgb (11.8-15.2) gm/dl Hct (35.5-45.6) % Plt Count (140-440) K/mm3 POC ABG pCO2 (32.0-48.0) mmHg ABG Hemoglobin (12.0-17.5) ABG Sodium (136.0-145.0) mmol/L ABG Potassium (3.40-4.50) mmol/L ABG Chloride (98-107) mmol/L ABG Glucose (65-95) mg/dL Sodium 155 H 156 H (137-145) mmol/L Potassium (3.6-5.0) mmol/L Chloride 123.8 H 123.2 H (98-107) mmol/L Carbon Dioxide 20 L 21 L (22-30) mmol/L BUN 86 H 77 H (9-20) mg/dL Creatinine 2.4 H 2.3 H (0.8-1.3) mg/dL Glucose 135 H 119 H (75-100) mg/dL POC Glucose 125 H (70-105) mg/dL Calcium 8.2 L (8.4-10.2) mg/dL Arterial Blood Glucose (65-95) mg/dL 10/01/20 10/01/20 10/01/20 Range/Units 00:11 04:15 04:15 WBC 11.8 H (4.5-11.0) K/mm3 Hgb 11.7 L (11.8-15.2) gm/dl Hct 35.2 L (35.5-45.6) % Plt Count 107 L (140-440) K/mm3 POC ABG pCO2 30.6 L (32.0-48.0) mmHg ABG Hemoglobin 11.5 L (12.0-17.5) ABG Sodium 156.2 H (136.0-145.0) mmol/L ABG Potassium 3.3 L (3.40-4.50) mmol/L ABG Chloride 124.0 H (98-107) mmol/L ABG Glucose 156 H (65-95) mg/dL Sodium 155 H (137-145) mmol/L Potassium 3.4 L (3.6-5.0) mmol/L Chloride 123.1 H (98-107) mmol/L Carbon Dioxide 21 L (22-30) mmol/L BUN 77 H (9-20) mg/dL Creatinine 2.1 H (0.8-1.3) mg/dL Glucose 153 H (75-100) mg/dL POC Glucose (70-105) mg/dL Calcium (8.4-10.2) mg/dL Arterial Blood Glucose 156 H (65-95) mg/dL 10/01/20 10/01/20 Range/Units 05:18 12:09 WBC (4.5-11.0) K/mm3 Hgb (11.8-15.2) gm/dl Hct (35.5-45.6) % Plt Count (140-440) K/mm3 POC ABG pCO2 (32.0-48.0) mmHg ABG Hemoglobin (12.0-17.5) ABG Sodium (136.0-145.0) mmol/L ABG Potassium (3.40-4.50) mmol/L ABG Chloride (98-107) mmol/L ABG Glucose (65-95) mg/dL Sodium (137-145) mmol/L Potassium (3.6-5.0) mmol/L Chloride (98-107) mmol/L Carbon Dioxide (22-30) mmol/L BUN (9-20) mg/dL Creatinine (0.8-1.3) mg/dL Glucose (75-100) mg/dL POC Glucose 116 H 139 H (70-105) mg/dL Calcium (8.4-10.2) mg/dL Arterial Blood Glucose (65-95) mg/dL
[2020-10-01 14:20] LABS: Calcium 8.5 mg/dL (8.4-10.2)
[2020-10-01 20:57] LABS: Calcium 8.2 mg/dL (8.4-10.2)
[2020-10-02] MEDS: METOPROLOL TARTRATE 50 MG TAB PO SCH ×4 (00:37→17:33)
[2020-10-02] MEDS: DEXTROSE 5% IN WATER 1,000 ML IV SCH ×2 (01:36→06:46)
[2020-10-02] MEDS: hydrALAZINE 20 MG/1 ML INJ IV SCH ×3 (02:28→09:01)
[2020-10-02 05:32] LABS: Hematocrit 33.2 % (35.5-45.6); Hemoglobin 11.1 gm/dl (11.8-15.2); Mean Corpuscular HGB Conc 34 % (32-34); Mean Corpuscular Volume 93 fl (84-94); Platelet Count 117 K/mm3 (140-440); Red Blood Count 3.58 M/mm3 (3.65-5.03); Red Cell Distribution Width 15.3 % (13.2-15.2)
[2020-10-02] MEDS: ACETAMINOPHEN 325 MG/10.15 ML ORAL LIQD UNIT DOSE FEEDTUBE PRN ×2 (06:18→20:57)
[2020-10-02] MEDS: FAMOTIDINE 20 MG TAB PO SCH (09:39)
[2020-10-02] MEDS: ASPIRIN 325 MG TAB PO SCH (09:39)
[2020-10-02] MEDS: HEPARIN 5,000 UNIT/1 ML VIAL SUB-Q SCH ×2 (09:53→21:56)
[2020-10-02] MEDS ORDERED: VANCOMYCIN/NS 1 GM/250 ML 1 GM/250 ML BAG IV ONE (10:00)
--- NOTE | 2020-10-02 10:54 | Progress Note ---
Assessment and Plan - Patient Problems (1) Cardiomyopathy Current Visit: Yes Status: Acute (2) Acute anoxic encephalopathy Current Visit: Yes Status: Acute (3) Cardiac arrest Current Visit: Yes Status: Acute Subjective Date of service: 10/02/20 Principal diagnosis: Acute respiratory failure Interval history: UNRESPONSIVE,,VENT' Objective Vital Signs Temp Pulse Pulse Resp BP Pulse Ox 10/02/20 10:08 100/64 10/02/20 10:00 93 H 28 H 80/50 97 10/02/20 09:30 88 29 H 94/57 97 10/02/20 09:01 94/57 10/02/20 09:00 89 29 H 94/57 96 10/02/20 08:32 99.4 F 10/02/20 08:30 88 28 H 93/58 98 10/02/20 08:00 90 89 28 H 93/58 98 10/02/20 07:30 92 H 27 H 94/60 98 10/02/20 07:00 99 H 30 H 94/60 97 10/02/20 06:30 104 H 32 H 104/67 97 10/02/20 06:18 106 H 104/67 10/02/20 06:00 110 H 20 104/67 96 10/02/20 05:30 108 H 30 H 108/69 93 10/02/20 05:29 108 H 108/69 10/02/20 05:00 107 H 30 H 108/69 93 10/02/20 04:51 109 H 95/68 94 10/02/20 04:30 108 H 33 H 95/68 95 10/02/20 04:00 100.8 F H 107 H 107 H 28 H 95/68 94 10/02/20 03:30 107 H 31 H 98/65 93 10/02/20 03:00 106 H 30 H 98/65 94 10/02/20 02:30 104 H 29 H 113/63 93 10/02/20 02:28 96 H 109/62 10/02/20 02:00 101 H 29 H 113/63 94 10/02/20 01:30 98 H 28 H 107/65 93 10/02/20 01:00 98 H 26 H 109/62 95 10/02/20 00:42 96 H 109/62 94 10/02/20 00:37 96 H 109/62 10/02/20 00:31 95 H 28 H 109/62 95 10/02/20 00:00 99.1 F 96 H 96 H 27 H 109/62 95 10/01/20 23:31 91 H 29 H 111/64 96 10/01/20 23:00 88 28 H 111/64 97 10/01/20 22:43 85 29 H 103/61 98 10/01/20 22:31 86 30 H 103/61 98 10/01/20 22:00 88 27 H 103/61 97 10/01/20 21:56 88 106/70 10/01/20 21:31 88 28 H 106/70 96 10/01/20 21:00 90 30 H 106/70 96 10/01/20 20:54 88 108/68 96 10/01/20 20:31 87 29 H 108/68 95 10/01/20 20:00 99.4 F 87 30 H 108/68 98 10/01/20 19:31 85 27 H 95/63 98 10/01/20 19:00 84 28 H 95/63 98 10/01/20 18:31 83 26 H 100/70 97 10/01/20 18:20 86 100/70 98 10/01/20 18:00 84 26 H 100/70 97 10/01/20 17:43 98/56 10/01/20 17:31 80 26 H 98/63 97 10/01/20 17:00 77 27 H 98/63 98 10/01/20 16:31 79 28 H 100/64 98 10/01/20 16:00 80 19 100/64 98 10/01/20 15:53 99.2 F 10/01/20 15:42 81 27 H 103/62 98 10/01/20 15:31 80 30 H 103/62 97 10/01/20 15:00 79 24 103/62 83 L 10/01/20 14:31 84 22 113/53 88 10/01/20 14:00 87 24 113/53 98 10/01/20 13:31 82 26 H 105/62 98 10/01/20 13:14 80 105/65 10/01/20 13:13 80 105/62 10/01/20 13:00 83 27 H 105/62 98 10/01/20 12:31 86 27 H 110/67 99 10/01/20 12:00 98.7 F 86 27 H 110/67 99 10/01/20 11:39 86 27 H 104/65 99 10/01/20 11:31 88 28 H 104/65 99 10/01/20 11:00 87 27 H 104/ 99 - Physical Examination General: Other (intubated, unresponsive, on the vent) HEENT: Positive: Other (Pupils fixed) Neck: Positive: neck supple Cardiac: Positive: Reg Rate and Rhythm Lungs: Positive: clear to auscultation Neuro: Positive: Weakness (Unresponsive, on the vent) Abdomen: Positive: Unremarkable, Soft Skin: Positive: Clear Extremities: Present: normal. Absent: edema - Labs and Meds CBC 10/02/20 Range/Units 04:47 WBC 10.7 (4.5-11.0) K/mm3 RBC 3.58 L (3.65-5.03) M/mm3 Hgb 11.1 L (11.8-15.2) gm/dl Hct 33.2 L (35.5-45.6) % Plt Count 117 L (140-440) K/mm3 Comprehensive Metabolic Panel 10/01/20 10/01/20 10/01/20 Range/Units 13:20 13:20 20:22 Sodium 153 H 153 H 149 H (137-145) mmol/L Potassium 3.7 3.6 3.8 (3.6-5.0) mmol/L Chloride 120.1 H 116.3 H (98-107) mmol/L Carbon Dioxide 19 L 21 L (22-30) mmol/L BUN 73 H 73 H (9-20) mg/dL Creatinine 2.0 H 2.1 H (0.8-1.3) mg/dL Glucose 147 H 133 H (75-100) mg/dL Calcium 8.5 8.2 L (8.4-10.2) mg/dL 10/01/20 10/02/20 Range/Units 20:22 04:47 Sodium 150 H 148 H (137-145) mmol/L Potassium (3.6-5.0) mmol/L Chloride (98-107) mmol/L Carbon Dioxide (22-30) mmol/L BUN (9-20) mg/dL Creatinine (0.8-1.3) mg/dL Glucose (75-100) mg/dL Calcium (8.4-10.2) mg/dL
--- NOTE | 2020-10-02 11:07 | Progress Note ---
Assessment and Plan 50 y/o male with 45 minute cardiac arrest, now on 3 vasopressors, intubated and not sedated, unresponsive. 10/02/20: Anoxic brain injury. Liklihood of meaningful recovery is nil. This is his new baseline and will only get worse. Will stop D5 and make sure he is getting is free water flushes with feeds. Continue Goal directed therapy. Will stop hydralazine given marginal bp's. Continue rainey secondary to urinary retention. Very very poor prognosis. Follow up with CM about family decision. 09/24/20: No new recs for today. MRI not done on yesterday. Spoke with mother and girlfriend over the phone, please see my event note. Follow up any new renal recs for today. Goal directed therapy for CHF. Very very poor prognosis, hospice appropriate. 09/23/20: Overall prognosis is very very poor. Multisystem organ failure (Neuro, Cardiac, Renal). Given new evidence of edema, confirms what was suspected of anoxic brain injury. Family did visit on yesterday. Will call today to given update on CT and what this means. MRI pending in regards to new stroke but not sure what therapy patient would be a candidate for. 09/22/20: Echo reveals significant systolic heart failure, likely not new. May have been cause of "collapse". patient does not have defibrillator or life vest. Await cardiology assessment but given mental state, doubt a candidate for any invasive procedures. Blood sugars are stable on D5 1/2 normal saline at 75, but now that off pressors will feed. Will remove central line and obtain midline vs picc. No documentation if mother visited yesterday or not. Will need to call her again to discuss echo results and persistent vegetative state. Likely is anoxic from prolonged downtime. Very very Poor Prognosis. WIll discuss goal directed therapy for CHF (ray, statin, beta db, may spironolactone) 1. Echo 2. May need repeat head CT in 48-72 hours 3. Change Fluids to D5 1/2 normal with fsbs q1 hours until 3 consecutive sugars >180 4. Wean Epi off first and then wean off the other pressors. Guarded to poor prognosis. CCT 31 minutes. Subjective Date of service: 10/02/20 Principal diagnosis: Acute respiratory failure Interval history: No changes in clinical state. Waiting on family to make decision about hospice comfort measures and end of life. Objective Vital Signs - 12hr 10/01/20 10/01/20 10/02/20 23:00 23:31 00:00 Temperature 99.1 F Pulse Rate 88 91 H 96 H Pulse Rate [ 96 H From Monitor] Respiratory 28 H 29 H 27 H Rate Blood Pressure 111/64 111/64 109/62 O2 Sat by Pulse 97 96 95 Oximetry 10/02/20 10/02/20 10/02/20 00:31 00:37 00:42 Temperature Pulse Rate 95 H 96 H 96 H Pulse Rate [ From Monitor] Respiratory 28 H Rate Blood Pressure 109/62 109/62 109/62 O2 Sat by Pulse 95 94 Oximetry 10/02/20 10/02/20 10/02/20 01:00 01:30 02:00 Temperature Pulse Rate 98 H 98 H 101 H Pulse Rate [ From Monitor] Respiratory 26 H 28 H 29 H Rate Blood Pressure 109/62 107/65 113/63 O2 Sat by Pulse 95 93 94 Oximetry 10/02/20 10/02/20 10/02/20 02:28 02:30 03:00 Temperature Pulse Rate 96 H 104 H 106 H Pulse Rate [ From Monitor] Respiratory 29 H 30 H Rate Blood Pressure 109/62 113/63 98/65 O2 Sat by Pulse 93 94 Oximetry 10/02/20 10/02/20 10/02/20 03:30 04:00 04:30 Temperature 100.8 F H Pulse Rate 107 H 107 H 108 H Pulse Rate [ 107 H From Monitor] Respiratory 31 H 28 H 33 H Rate Blood Pressure 98/65 95/68 95/68 O2 Sat by Pulse 93 94 95 Oximetry 10/02/20 10/02/20 10/02/20 04:51 05:00 05:29 Temperature Pulse Rate 109 H 107 H 108 H Pulse Rate [ From Monitor] Respiratory 30 H Rate Blood Pressure 95/68 108/69 108/69 O2 Sat by Pulse 94 93 Oximetry 10/02/20 10/02/20 10/02/20 05:30 06:00 06:18 Temperature Pulse Rate 108 H 110 H 106 H Pulse Rate [ From Monitor] Respiratory 30 H 20 Rate Blood Pressure 108/69 104/67 104/67 O2 Sat by Pulse 93 96 Oximetry 10/02/20 10/02/20 10/02/20 06:30 07:00 07:30 Temperature Pulse Rate 104 H 99 H 92 H Pulse Rate [ From Monitor] Respiratory 32 H 30 H 27 H Rate Blood Pressure 104/67 94/60 94/60 O2 Sat by Pulse 97 97 98 Oximetry 10/02/20 10/02/20 10/02/20 08:00 08:30 08:32 Temperature 99.4 F Pulse Rate 90 88 Pulse Rate [ 89 From Monitor] Respiratory 28 H 28 H Rate Blood Pressure 93/58 93/58 O2 Sat by Pulse 98 98 Oximetry 10/02/20 10/02/20 10/02/20 09:00 09:01 09:30 Temperature Pulse Rate 89 88 Pulse Rate [ From Monitor] Respiratory 29 H 29 H Rate Blood Pressure 94/57 94/57 94/57 O2 Sat by Pulse 96 97 Oximetry 10/02/20 10/02/20 10:00 10:08 Temperature Pulse Rate 93 H Pulse Rate [ From Monitor] Respiratory 28 H Rate Blood Pressure 80/50 100/64 O2 Sat by Pulse 97 Oximetry Constitutional: comatose, other (on vent not responsive no sedation on cpap) Eyes: non-icteric ENT: other (intubated, critically ill) Neck: supple Effort: normal Ascultation: Bilateral: clear Percussion: Bilateral: not dull Tactile fremitus: Bilateral: normal Cardiovascular: other (sinus tachycardia) Gastrointestinal: normoactive bowel sounds Integumentary: normal Extremities: no cyanosis, no edema, pink and warm Neurologic: other (comatose/unresponsive) Psychiatric: other (unable to assess) CBC and BMP: 10/02/20 04:47 10/02/20 04:47 ABG, PT/INR, D-dimer: ABG ABG pH 7.445 (7.320-7.450) 10/01/20 00:11 POC ABG pCO2 30.6 mmHg (32.0-48.0) L 10/01/20 00:11 ABG pCO2 40.5 mm Hg 09/21/20 02:15 POC ABG pO2 83.9 mmHg (83-108) 10/01/20 00:11 ABG pO2 244.1 mm Hg (80.0-90.0) H 09/21/20 02:15 POC ABG HCO3 20.6 10/01/20 00:11 ABG O2 Saturation 96.5 (0-100) 10/01/20 00:11 PT/INR, D-dimer PT 15.5 Sec. (12.2-14.9) H 09/22/20 08:26 INR 1.25 (0.87-1.13) H 09/22/20 08:26 Abnormal lab findings: Abnormal Labs 09/20/20 09/20/20 09/20/20 23:02 23:02 23:02 WBC RBC Hgb Hct MCV 96 H RDW 15.8 H Plt Count Lymph % (Auto) [place] % (Auto) Lymph # (Auto) [place] # (Auto) Seg Neutrophils % Seg Neuts % (Manual) 34.0 L Lymphocytes % (Manual) 57.0 H Seg Neutrophils # PT INR 1.14 H ABG pH POC ABG pCO2 POC ABG pO2 ABG pO2 ABG HCO3 ABG O2 Saturation ABG Base Excess ABG Hemoglobin ABG Oxyhemoglobin ABG Sodium ABG Potassium ABG Chloride ABG Glucose Sodium Potassium Chloride Carbon Dioxide 21 L BUN 26 H Creatinine 2.1 H Glucose 227 H POC Glucose Lactic Acid Calcium 10.3 H Phosphorus AST 59 H Total Creatine Kinase Troponin T HDL Cholesterol Arterial Blood Glucose Arterial Blood Ionized Calcium Urine WBC (Auto) Urine Creatinine 09/20/20 09/20/20 09/21/20 23:15 23:35 01:20 WBC RBC Hgb Hct MCV RDW Plt Count Lymph % (Auto) [place] % (Auto) Lymph # (Auto) [place] # (Auto) Seg Neutrophils % Seg Neuts % (Manual) Lymphocytes % (Manual) Seg Neutrophils # PT INR ABG pH POC ABG pCO2 POC ABG pO2 ABG pO2 ABG HCO3 ABG O2 Saturation ABG Base Excess ABG Hemoglobin ABG Oxyhemoglobin ABG Sodium ABG Potassium ABG Chloride ABG Glucose Sodium Potassium Chloride Carbon Dioxide BUN Creatinine Glucose POC Glucose 197 H Lactic Acid 8.70 H* Calcium Phosphorus AST Total Creatine Kinase Troponin T HDL Cholesterol Arterial Blood Glucose Arterial Blood Ionized Calcium Urine WBC (Auto) 47.0 H Urine Creatinine 09/21/20 09/21/20 09/21/20 02:01 02:15 04:25 WBC RBC Hgb Hct MCV RDW Plt Count Lymph % (Auto) [place] % (Auto) Lymph # (Auto) [place] # (Auto) Seg Neutrophils % Seg Neuts % (Manual) Lymphocytes % (Manual) Seg Neutrophils # PT INR ABG pH 7.258 L POC ABG pCO2 POC ABG pO2 ABG pO2 244.1 H ABG HCO3 17.7 L ABG O2 Saturation 99.4 H ABG Base Excess -8.8 L ABG Hemoglobin ABG Oxyhemoglobin ABG Sodium ABG Potassium ABG Chloride ABG Glucose Sodium Potassium Chloride Carbon Dioxide BUN Creatinine Glucose POC Glucose 65 L Lactic Acid Calcium Phosphorus AST Total Creatine Kinase Troponin T 0.865 H* D HDL Cholesterol 60 H Arterial Blood Glucose Arterial Blood Ionized Calcium Urine WBC (Auto) Urine Creatinine 09/21/20 09/21/20 09/21/20 04:34 04:34 07:03 WBC RBC Hgb 16.9 H D Hct 51.3 H D MCV RDW Plt Count Lymph % (Auto) [place] % (Auto) Lymph # (Auto) [place] # (Auto) Seg Neutrophils % Seg Neuts % (Manual) Lymphocytes % (Manual) Seg Neutrophils # PT INR ABG pH POC ABG pCO2 POC ABG pO2 ABG pO2 ABG HCO3 ABG O2 Saturation ABG Base Excess ABG Hemoglobin ABG Oxyhemoglobin ABG Sodium ABG Potassium ABG Chloride ABG Glucose Sodium Potassium Chloride Carbon Dioxide BUN Creatinine Glucose POC Glucose Lactic Acid 3.00 H* Calcium Phosphorus AST Total Creatine Kinase Troponin T 1.880 H* D HDL Cholesterol Arterial Blood Glucose Arterial Blood Ionized Calcium Urine WBC (Auto) Urine Creatinine 09/21/20 09/21/20 09/21/20 07:03 07:32 07:53 WBC 19.2 H RBC 5.31 H Hgb 16.0 H Hct 49.0 H MCV RDW 15.7 H Plt Count Lymph % (Auto) [place] % (Auto) Lymph # (Auto) [place] # (Auto) Seg Neutrophils % Seg Neuts % (Manual) Lymphocytes % (Manual) Seg Neutrophils # PT 16.3 H INR 1.31 H ABG pH POC ABG pCO2 POC ABG pO2 ABG pO2 ABG HCO3 ABG O2 Saturation ABG Base Excess ABG Hemoglobin ABG Oxyhemoglobin ABG Sodium ABG Potassium ABG Chloride ABG Glucose Sodium Potassium Chloride Carbon Dioxide BUN Creatinine Glucose POC Glucose 60 L Lactic Acid Calcium Phosphorus AST Total Creatine Kinase Troponin T HDL Cholesterol Arterial Blood Glucose Arterial Blood Ionized Calcium Urine WBC (Auto) Urine Creatinine 09/21/20 09/21/20 09/21/20 07:53 09:30 10:08 WBC RBC Hgb Hct MCV RDW Plt Count Lymph % (Auto) [place] % (Auto) Lymph # (Auto) [place] # (Auto) Seg Neutrophils % Seg Neuts % (Manual) Lymphocytes % (Manual) Seg Neutrophils # PT 15.4 H INR 1.24 H ABG pH POC ABG pCO2 POC ABG pO2 ABG pO2 ABG HCO3 ABG O2 Saturation ABG Base Excess ABG Hemoglobin ABG Oxyhemoglobin ABG Sodium ABG Potassium ABG Chloride ABG Glucose Sodium 146 H Potassium 3.5 L Chloride 109.6 H Carbon Dioxide 20 L BUN 37 H Creatinine 2.8 H Glucose 127 H POC Glucose Lactic Acid 3.00 H* Calcium Phosphorus AST Total Creatine Kinase Troponin T HDL Cholesterol Arterial Blood Glucose Arterial Blood Ionized Calcium Urine WBC (Auto) Urine Creatinine 09/21/20 09/21/20 09/21/20 10:34 11:22 11:44 WBC RBC Hgb Hct MCV RDW Plt Count Lymph % (Auto) [place] % (Auto) Lymph # (Auto) [place] # (Auto) Seg Neutrophils % Seg Neuts % (Manual) Lymphocytes % (Manual) Seg Neutrophils # PT INR ABG pH POC ABG pCO2 25.9 L POC ABG pO2 196.9 H ABG pO2 ABG HCO3 ABG O2 Saturation ABG Base Excess ABG Hemoglobin ABG Oxyhemoglobin 98.4 H ABG Sodium ABG Potassium 3.3 L ABG Chloride 113.0 H ABG Glucose 130 H Sodium Potassium Chloride Carbon Dioxide BUN Creatinine Glucose POC Glucose 126 H 127 H Lactic Acid Calcium Phosphorus AST Total Creatine Kinase Troponin T HDL Cholesterol Arterial Blood Glucose 130 H Arterial Blood Ionized Calcium Urine WBC (Auto) Urine Creatinine 09/21/20 09/21/20 09/21/20 14:27 14:27 15:09 WBC RBC Hgb Hct MCV RDW Plt Count Lymph % (Auto) [place] % (Auto) Lymph # (Auto) [place] # (Auto) Seg Neutrophils % Seg Neuts % (Manual) Lymphocytes % (Manual) Seg Neutrophils # PT INR ABG pH POC ABG pCO2 POC ABG pO2 ABG pO2 ABG HCO3 ABG O2 Saturation ABG Base Excess ABG Hemoglobin ABG Oxyhemoglobin ABG Sodium ABG Potassium ABG Chloride ABG Glucose Sodium Potassium Chloride Carbon Dioxide BUN Creatinine Glucose POC Glucose 135 H Lactic Acid Calcium Phosphorus AST Total Creatine Kinase Troponin T HDL Cholesterol Arterial Blood Glucose Arterial Blood Ionized Calcium Urine WBC (Auto) 12.0 H Urine Creatinine 60.4 H 05/06/21 05/06/21 05/06/21 15:54 15:54 16:13 WBC RBC Hgb Hct MCV RDW Plt Count Lymph % (Auto) [place] % (Auto) Lymph # (Auto) [place] # (Auto) Seg Neutrophils % Seg Neuts % (Manual) Lymphocytes % (Manual) Seg Neutrophils # PT INR ABG pH POC ABG pCO2 POC ABG pO2 ABG pO2 ABG HCO3 ABG O2 Saturation ABG Base Excess ABG Hemoglobin ABG Oxyhemoglobin ABG Sodium ABG Potassium ABG Chloride ABG Glucose Sodium Potassium Chloride Carbon Dioxide BUN Creatinine Glucose POC Glucose 131 H Lactic Acid 3.60 H* Calcium Phosphorus AST Total Creatine Kinase 3606 H Troponin T HDL Cholesterol Arterial Blood Glucose Arterial Blood Ionized Calcium Urine WBC (Auto) Urine Creatinine 09/21/20 09/21/20 09/21/20 18:02 19:48 20:57 WBC RBC Hgb Hct MCV RDW Plt Count Lymph % (Auto) [place] % (Auto) Lymph # (Auto) [place] # (Auto) Seg Neutrophils % Seg Neuts % (Manual) Lymphocytes % (Manual) Seg Neutrophils # PT INR ABG pH POC ABG pCO2 POC ABG pO2 ABG pO2 ABG HCO3 ABG O2 Saturation ABG Base Excess ABG Hemoglobin ABG Oxyhemoglobin ABG Sodium ABG Potassium ABG Chloride ABG Glucose Sodium Potassium Chloride Carbon Dioxide BUN Creatinine Glucose POC Glucose 139 H 184 H 173 H Lactic Acid Calcium Phosphorus AST Total Creatine Kinase Troponin T HDL Cholesterol Arterial Blood Glucose Arterial Blood Ionized Calcium Urine WBC (Auto) Urine Creatinine 09/21/20 09/21/20 09/21/20 22:02 22:27 23:54 WBC RBC Hgb Hct MCV RDW Plt Count Lymph % (Auto) [place] % (Auto) Lymph # (Auto) [place] # (Auto) Seg Neutrophils % Seg Neuts % (Manual) Lymphocytes % (Manual) Seg Neutrophils # PT INR ABG pH POC ABG pCO2 POC ABG pO2 ABG pO2 ABG HCO3 ABG O2 Saturation ABG Base Excess ABG Hemoglobin ABG Oxyhemoglobin ABG Sodium ABG Potassium ABG Chloride ABG Glucose Sodium Potassium Chloride Carbon Dioxide BUN Creatinine Glucose POC Glucose 147 H 142 H 143 H Lactic Acid Calcium Phosphorus AST Total Creatine Kinase Troponin T HDL Cholesterol Arterial Blood Glucose Arterial Blood Ionized Calcium Urine WBC (Auto) Urine Creatinine 09/22/20 09/22/2021 00:49 02:01 02:14 WBC RBC Hgb Hct MCV RDW Plt Count Lymph % (Auto) [place] % (Auto) Lymph # (Auto) [place] # (Auto) Seg Neutrophils % Seg Neuts % (Manual) Lymphocytes % (Manual) Seg Neutrophils # PT INR ABG pH POC ABG pCO2 POC ABG pO2 ABG pO2 ABG HCO3 ABG O2 Saturation ABG Base Excess ABG Hemoglobin ABG Oxyhemoglobin ABG Sodium ABG Potassium ABG Chloride ABG Glucose Sodium Potassium Chloride Carbon Dioxide BUN Creatinine Glucose POC Glucose 154 H 154 H 149 H Lactic Acid Calcium Phosphorus AST Total Creatine Kinase Troponin T HDL Cholesterol Arterial Blood Glucose Arterial Blood Ionized Calcium Urine WBC (Auto) Urine Creatinine 09/22/20 09/22/20 09/22/20 02:57 03:21 03:58 WBC RBC Hgb Hct MCV RDW Plt Count Lymph % (Auto) [place] % (Auto) Lymph # (Auto) [place] # (Auto) Seg Neutrophils % Seg Neuts % (Manual) Lymphocytes % (Manual) Seg Neutrophils # PT INR ABG pH 7.496 H POC ABG pCO2 25.0 L POC ABG pO2 73.8 L ABG pO2 ABG HCO3 ABG O2 Saturation ABG Base Excess ABG Hemoglobin ABG Oxyhemoglobin ABG Sodium ABG Potassium ABG Chloride 115.0 H ABG Glucose 154 H Sodium Potassium Chloride Carbon Dioxide BUN Creatinine Glucose POC Glucose 166 H 158 H Lactic Acid Calcium Phosphorus AST Total Creatine Kinase Troponin T HDL Cholesterol Arterial Blood Glucose 154 H Arterial Blood Ionized Calcium 4.5 L Urine WBC (Auto) Urine Creatinine 09/22/20 09/22/20 09/22/20 05:06 05:56 06:50 WBC RBC Hgb Hct MCV RDW Plt Count Lymph % (Auto) [place] % (Auto) Lymph # (Auto) [place] # (Auto) Seg Neutrophils % Seg Neuts % (Manual) Lymphocytes % (Manual) Seg Neutrophils # PT INR ABG pH POC ABG pCO2 POC ABG pO2 ABG pO2 ABG HCO3 ABG O2 Saturation ABG Base Excess ABG Hemoglobin ABG Oxyhemoglobin ABG Sodium ABG Potassium ABG Chloride ABG Glucose Sodium Potassium Chloride Carbon Dioxide BUN Creatinine Glucose POC Glucose 147 H 145 H 137 H Lactic Acid Calcium Phosphorus AST Total Creatine Kinase Troponin T HDL Cholesterol Arterial Blood Glucose Arterial Blood Ionized Calcium Urine WBC (Auto) Urine Creatinine 09/22/20 09/22/20 09/22/20 08:02 08:26 08:26 WBC 15.2 H RBC Hgb Hct MCV RDW 16.0 H Plt Count Lymph % (Auto) 7.6 L [place] % (Auto) Lymph # (Auto) [place] # (Auto) 1.0 H Seg Neutrophils % 86.0 H Seg Neuts % (Manual) Lymphocytes % (Manual) Seg Neutrophils # 13.0 H PT 15.5 H INR 1.25 H ABG pH POC ABG pCO2 POC ABG pO2 ABG pO2 ABG HCO3 ABG O2 Saturation ABG Base Excess ABG Hemoglobin ABG Oxyhemoglobin ABG Sodium ABG Potassium ABG Chloride ABG Glucose Sodium Potassium Chloride Carbon Dioxide BUN Creatinine Glucose POC Glucose 149 H Lactic Acid Calcium Phosphorus AST Total Creatine Kinase Troponin T HDL Cholesterol Arterial Blood Glucose Arterial Blood Ionized Calcium Urine WBC (Auto) Urine Creatinine 09/22/20 09/22/20 09/22/20 08:26 12:04 15:55 WBC RBC Hgb Hct MCV RDW Plt Count Lymph % (Auto) [place] % (Auto) Lymph # (Auto) [place] # (Auto) Seg Neutrophils % Seg Neuts % (Manual) Lymphocytes % (Manual) Seg Neutrophils # PT INR ABG pH POC ABG pCO2 POC ABG pO2 ABG pO2 ABG HCO3 ABG O2 Saturation ABG Base Excess ABG Hemoglobin ABG Oxyhemoglobin ABG Sodium ABG Potassium ABG Chloride ABG Glucose Sodium 146 H Potassium 3.5 L Chloride 114.0 H Carbon Dioxide 18 L BUN 46 H Creatinine 3.7 H Glucose 134 H POC Glucose 138 H 123 H Lactic Acid Calcium 7.7 L Phosphorus AST Total Creatine Kinase Troponin T HDL Cholesterol Arterial Blood Glucose Arterial Blood Ionized Calcium Urine WBC (Auto) Urine Creatinine 09/22/20 09/22/20 09/23/20 21:57 23:41 03:30 WBC 14.2 H RBC Hgb Hct MCV RDW 16.5 H Plt Count 126 L Lymph % (Auto) 8.2 L [place] % (Auto) 7.8 H Lymph # (Auto) [place] # (Auto) 1.1 H Seg Neutrophils % 83.8 H Seg Neuts % (Manual) Lymphocytes % (Manual) Seg Neutrophils # 11.9 H PT INR ABG pH POC ABG pCO2 POC ABG pO2 ABG pO2 ABG HCO3 ABG O2 Saturation ABG Base Excess ABG Hemoglobin ABG Oxyhemoglobin ABG Sodium ABG Potassium ABG Chloride ABG Glucose Sodium Potassium Chloride Carbon Dioxide BUN Creatinine Glucose POC Glucose 124 H 130 H Lactic Acid Calcium Phosphorus AST Total Creatine Kinase Troponin T HDL Cholesterol Arterial Blood Glucose Arterial Blood Ionized Calcium Urine WBC (Auto) Urine Creatinine 09/23/20 09/23/20 09/23/20 03:30 03:45 12:33 WBC RBC Hgb Hct MCV RDW Plt Count Lymph % (Auto) [place] % (Auto) Lymph # (Auto) [place] # (Auto) Seg Neutrophils % Seg Neuts % (Manual) Lymphocytes % (Manual) Seg Neutrophils # PT INR ABG pH POC ABG pCO2 POC ABG pO2 ABG pO2 ABG HCO3 ABG O2 Saturation ABG Base Excess ABG Hemoglobin ABG Oxyhemoglobin ABG Sodium ABG Potassium ABG Chloride ABG Glucose Sodium Potassium Chloride 110.4 H Carbon Dioxide 19 L BUN 56 H Creatinine 4.7 H Glucose 148 H POC Glucose 132 H 139 H Lactic Acid Calcium 7.4 L Phosphorus 5.80 H D AST Total Creatine Kinase Troponin T HDL Cholesterol Arterial Blood Glucose Arterial Blood Ionized Calcium Urine WBC (Auto) Urine Creatinine 09/23/20 09/23/20 09/24/20 17:54 23:18 02:57 WBC RBC Hgb Hct MCV RDW Plt Count Lymph % (Auto) [place] % (Auto) Lymph # (Auto) [place] # (Auto) Seg Neutrophils % Seg Neuts % (Manual) Lymphocytes % (Manual) Seg Neutrophils # PT INR ABG pH POC ABG pCO2 30.0 L POC ABG pO2 75.1 L ABG pO2 ABG HCO3 ABG O2 Saturation ABG Base Excess ABG Hemoglobin ABG Oxyhemoglobin ABG Sodium 149.5 H ABG Potassium ABG Chloride 119.0 H ABG Glucose 144 H Sodium Potassium Chloride Carbon Dioxide BUN Creatinine Glucose POC Glucose 115 H 139 H Lactic Acid Calcium Phosphorus AST Total Creatine Kinase Troponin T HDL Cholesterol Arterial Blood Glucose 144 H Arterial Blood Ionized Calcium Urine WBC (Auto) Urine Creatinine 09/24/20 09/24/20 09/24/20 04:20 04:30 05:10 WBC 14.3 H RBC Hgb Hct MCV RDW 16.6 H Plt Count 135 L Lymph % (Auto) 5.9 L [place] % (Auto) Lymph # (Auto) 0.8 L [place] # (Auto) 0.9 H Seg Neutrophils % 87.5 H Seg Neuts % (Manual) Lymphocytes % (Manual) Seg Neutrophils # 12.5 H PT INR ABG pH POC ABG pCO2 POC ABG pO2 ABG pO2 ABG HCO3 ABG O2 Saturation ABG Base Excess ABG Hemoglobin ABG Oxyhemoglobin ABG Sodium ABG Potassium ABG Chloride ABG Glucose Sodium 147 H Potassium Chloride 114.4 H Carbon Dioxide 19 L BUN 50 H Creatinine 3.2 H Glucose 142 H POC Glucose 137 H Lactic Acid Calcium 8.3 L Phosphorus AST Total Creatine Kinase Troponin T HDL Cholesterol Arterial Blood Glucose Arterial Blood Ionized Calcium Urine WBC (Auto) Urine Creatinine 09/24/20 09/24/20 09/24/20 12:03 17:39 23:15 WBC RBC Hgb Hct MCV RDW Plt Count Lymph % (Auto) [place] % (Auto) Lymph # (Auto) [place] # (Auto) Seg Neutrophils % Seg Neuts % (Manual) Lymphocytes % (Manual) Seg Neutrophils # PT INR ABG pH POC ABG pCO2 POC ABG pO2 ABG pO2 ABG HCO3 ABG O2 Saturation ABG Base Excess ABG Hemoglobin ABG Oxyhemoglobin ABG Sodium ABG Potassium ABG Chloride ABG Glucose Sodium Potassium Chloride Carbon Dioxide BUN Creatinine Glucose POC Glucose 120 H 155 H 109 H Lactic Acid Calcium Phosphorus AST Total Creatine Kinase Troponin T HDL Cholesterol Arterial Blood Glucose Arterial Blood Ionized Calcium Urine WBC (Auto) Urine Creatinine 09/25/20 09/25/20 09/25/20 03:02 05:16 07:50 WBC 14.0 H RBC Hgb Hct MCV RDW 16.5 H Plt Count Lymph % (Auto) 6.7 L [place] % (Auto) 9.1 H Lymph # (Auto) 0.9 L [place] # (Auto) 1.3 H Seg Neutrophils % 84.1 H Seg Neuts % (Manual) Lymphocytes % (Manual) Seg Neutrophils # 11.8 H PT INR ABG pH POC ABG pCO2 POC ABG pO2 67.4 L ABG pO2 ABG HCO3 ABG O2 Saturation ABG Base Excess ABG Hemoglobin ABG Oxyhemoglobin 92.3 L ABG Sodium 157.3 H ABG Potassium ABG Chloride 125.0 H ABG Glucose 147 H Sodium Potassium Chloride Carbon Dioxide BUN Creatinine Glucose POC Glucose 126 H Lactic Acid Calcium Phosphorus AST Total Creatine Kinase Troponin T HDL Cholesterol Arterial Blood Glucose 147 H Arterial Blood Ionized Calcium Urine WBC (Auto) Urine Creatinine 09/25/20 09/25/20 09/25/20 07:50 11:56 14:50 WBC RBC Hgb Hct MCV RDW Plt Count Lymph % (Auto) [place] % (Auto) Lymph # (Auto) [place] # (Auto) Seg Neutrophils % Seg Neuts % (Manual) Lymphocytes % (Manual) Seg Neutrophils # PT INR ABG pH POC ABG pCO2 POC ABG pO2 ABG pO2 ABG HCO3 ABG O2 Saturation ABG Base Excess ABG Hemoglobin ABG Oxyhemoglobin ABG Sodium ABG Potassium ABG Chloride ABG Glucose Sodium 160 H D 160 H Potassium Chloride 124.2 H Carbon Dioxide BUN 54 H Creatinine 2.8 H Glucose 124 H POC Glucose 109 H Lactic Acid Calcium 8.3 L Phosphorus AST Total Creatine Kinase Troponin T HDL Cholesterol Arterial Blood Glucose Arterial Blood Ionized Calcium Urine WBC (Auto) Urine Creatinine 09/25/20 09/25/20 09/25/20 18:02 19:45 23:02 WBC RBC Hgb Hct MCV RDW Plt Count Lymph % (Auto) [place] % (Auto) Lymph # (Auto) [place] # (Auto) Seg Neutrophils % Seg Neuts % (Manual) Lymphocytes % (Manual) Seg Neutrophils # PT INR ABG pH POC ABG pCO2 POC ABG pO2 ABG pO2 ABG HCO3 ABG O2 Saturation ABG Base Excess ABG Hemoglobin ABG Oxyhemoglobin ABG Sodium ABG Potassium ABG Chloride ABG Glucose Sodium 162 H* 160 H Potassium Chloride Carbon Dioxide BUN Creatinine Glucose POC Glucose 113 H Lactic Acid Calcium Phosphorus AST Total Creatine Kinase Troponin T HDL Cholesterol Arterial Blood Glucose Arterial Blood Ionized Calcium Urine WBC (Auto) Urine Creatinine 09/25/20 09/26/20 09/26/20 23:17 03:30 04:17 WBC 13.9 H RBC Hgb Hct MCV RDW 16.2 H Plt Count 133 L Lymph % (Auto) 7.4 L [place] % (Auto) 11.2 H Lymph # (Auto) 1.0 L [place] # (Auto) 1.6 H Seg Neutrophils % 81.0 H Seg Neuts % (Manual) Lymphocytes % (Manual) Seg Neutrophils # 11.3 H PT INR ABG pH 7.472 H POC ABG pCO2 31.1 L POC ABG pO2 56.5 L ABG pO2 ABG HCO3 ABG O2 Saturation ABG Base Excess ABG Hemoglobin ABG Oxyhemoglobin 91.3 L ABG Sodium 159.9 H ABG Potassium ABG Chloride 129.0 H ABG Glucose 135 H Sodium Potassium Chloride Carbon Dioxide BUN Creatinine Glucose POC Glucose 119 H Lactic Acid Calcium Phosphorus AST Total Creatine Kinase Troponin T HDL Cholesterol Arterial Blood Glucose 135 H Arterial Blood Ionized Calcium Urine WBC (Auto) Urine Creatinine 09/26/20 09/26/20 09/26/20 04:17 05:34 11:44 WBC RBC Hgb Hct MCV RDW Plt Count Lymph % (Auto) [place] % (Auto) Lymph # (Auto) [place] # (Auto) Seg Neutrophils % Seg Neuts % (Manual) Lymphocytes % (Manual) Seg Neutrophils # PT INR ABG pH POC ABG pCO2 POC ABG pO2 ABG pO2 ABG HCO3 ABG O2 Saturation ABG Base Excess ABG Hemoglobin ABG Oxyhemoglobin ABG Sodium ABG Potassium ABG Chloride ABG Glucose Sodium 162 H* Potassium Chloride 128.4 H Carbon Dioxide BUN 56 H Creatinine 2.5 H Glucose 128 H POC Glucose 135 H 141 H Lactic Acid Calcium Phosphorus 2.00 L D AST Total Creatine Kinase Troponin T HDL Cholesterol Arterial Blood Glucose Arterial Blood Ionized Calcium Urine WBC (Auto) Urine Creatinine 09/26/20 09/26/20 09/26/20 12:12 13:38 17:46 WBC RBC Hgb Hct MCV RDW Plt Count Lymph % (Auto) [place] % (Auto) Lymph # (Auto) [place] # (Auto) Seg Neutrophils % Seg Neuts % (Manual) Lymphocytes % (Manual) Seg Neutrophils # PT INR ABG pH POC ABG pCO2 POC ABG pO2 ABG pO2 ABG HCO3 ABG O2 Saturation ABG Base Excess ABG Hemoglobin ABG Oxyhemoglobin ABG Sodium ABG Potassium ABG Chloride ABG Glucose Sodium 160 H Potassium Chloride 127.2 H Carbon Dioxide BUN 60 H Creatinine 2.5 H Glucose 137 H POC Glucose 119 H Lactic Acid Calcium Phosphorus AST Total Creatine Kinase Troponin T HDL Cholesterol Arterial Blood Glucose Arterial Blood Ionized Calcium Urine WBC (Auto) 8.0 H Urine Creatinine 09/26/20 09/27/20 09/27/20 22:25 00:01 00:30 WBC RBC Hgb Hct MCV RDW Plt Count Lymph % (Auto) [place] % (Auto) Lymph # (Auto) [place] # (Auto) Seg Neutrophils % Seg Neuts % (Manual) Lymphocytes % (Manual) Seg Neutrophils # PT INR ABG pH POC ABG pCO2 POC ABG pO2 ABG pO2 ABG HCO3 ABG O2 Saturation ABG Base Excess ABG Hemoglobin ABG Oxyhemoglobin ABG Sodium ABG Potassium ABG Chloride ABG Glucose Sodium 161 H* 163 H* Potassium Chloride 129.3 H Carbon Dioxide BUN 61 H Creatinine 2.6 H Glucose 146 H POC Glucose 156 H Lactic Acid Calcium Phosphorus AST Total Creatine Kinase Troponin T HDL Cholesterol Arterial Blood Glucose Arterial Blood Ionized Calcium Urine WBC (Auto) Urine Creatinine 09/27/20 09/27/20 09/27/20 03:18 04:40 04:40 WBC 13.8 H RBC Hgb Hct MCV RDW 15.9 H Plt Count 123 L Lymph % (Auto) 7.8 L [place] % (Auto) 10.2 H Lymph # (Auto) 1.1 L [place] # (Auto) 1.4 H Seg Neutrophils % 81.5 H Seg Neuts % (Manual) Lymphocytes % (Manual) Seg Neutrophils # 11.2 H PT INR ABG pH POC ABG pCO2 POC ABG pO2 70.0 L ABG pO2 ABG HCO3 ABG O2 Saturation ABG Base Excess ABG Hemoglobin ABG Oxyhemoglobin ABG Sodium 160.6 H ABG Potassium ABG Chloride 130.0 H ABG Glucose 139 H Sodium 162 H* Potassium Chloride 128.9 H Carbon Dioxide BUN 63 H Creatinine 2.6 H Glucose 128 H POC Glucose Lactic Acid Calcium 8.3 L Phosphorus AST Total Creatine Kinase Troponin T HDL Cholesterol Arterial Blood Glucose 139 H Arterial Blood Ionized Calcium Urine WBC (Auto) Urine Creatinine 09/27/20 09/27/20 09/27/20 05:55 10:15 11:33 WBC RBC Hgb Hct MCV RDW Plt Count Lymph % (Auto) [place] % (Auto) Lymph # (Auto) [place] # (Auto) Seg Neutrophils % Seg Neuts % (Manual) Lymphocytes % (Manual) Seg Neutrophils # PT INR ABG pH POC ABG pCO2 POC ABG pO2 ABG pO2 ABG HCO3 ABG O2 Saturation ABG Base Excess ABG Hemoglobin ABG Oxyhemoglobin ABG Sodium ABG Potassium ABG Chloride ABG Glucose Sodium 164 H* Potassium 3.5 L Chloride 131.3 H Carbon Dioxide BUN 63 H Creatinine 2.7 H Glucose 147 H POC Glucose 116 H 131 H Lactic Acid Calcium Phosphorus AST Total Creatine Kinase Troponin T HDL Cholesterol Arterial Blood Glucose Arterial Blood Ionized Calcium Urine WBC (Auto) Urine Creatinine 09/27/20 09/28/20 09/28/20 17:21 00:10 03:20 WBC RBC Hgb Hct MCV RDW Plt Count Lymph % (Auto) [place] % (Auto) Lymph # (Auto) [place] # (Auto) Seg Neutrophils % Seg Neuts % (Manual) Lymphocytes % (Manual) Seg Neutrophils # PT INR ABG pH POC ABG pCO2 30.0 L POC ABG pO2 72.7 L ABG pO2 ABG HCO3 ABG O2 Saturation ABG Base Excess ABG Hemoglobin ABG Oxyhemoglobin ABG Sodium 159.8 H ABG Potassium ABG Chloride 131.0 H ABG Glucose 156 H Sodium Potassium Chloride Carbon Dioxide BUN Creatinine Glucose POC Glucose 151 H 125 H Lactic Acid Calcium Phosphorus AST Total Creatine Kinase Troponin T HDL Cholesterol Arterial Blood Glucose 156 H Arterial Blood Ionized Calcium Urine WBC (Auto) Urine Creatinine 09/28/20 09/28/20 09/28/20 04:29 04:29 05:16 WBC 16.7 H RBC Hgb Hct MCV RDW 16.4 H Plt Count 123 L Lymph % (Auto) 6.6 L [place] % (Auto) Lymph # (Auto) 1.1 L [place] # (Auto) 1.1 H Seg Neutrophils % 86.5 H Seg Neuts % (Manual) Lymphocytes % (Manual) Seg Neutrophils # 14.4 H PT INR ABG pH POC ABG pCO2 POC ABG pO2 ABG pO2 ABG HCO3 ABG O2 Saturation ABG Base Excess ABG Hemoglobin ABG Oxyhemoglobin ABG Sodium ABG Potassium ABG Chloride ABG Glucose Sodium 162 H* Potassium Chloride 128.7 H Carbon Dioxide 21 L BUN 73 H Creatinine 2.8 H Glucose 166 H POC Glucose 135 H Lactic Acid Calcium Phosphorus AST Total Creatine Kinase Troponin T HDL Cholesterol Arterial Blood Glucose Arterial Blood Ionized Calcium Urine WBC (Auto) Urine Creatinine 09/28/20 09/28/20 09/28/20 12:01 12:51 17:43 WBC RBC Hgb Hct MCV RDW Plt Count Lymph % (Auto) [place] % (Auto) Lymph # (Auto) [place] # (Auto) Seg Neutrophils % Seg Neuts % (Manual) Lymphocytes % (Manual) Seg Neutrophils # PT INR ABG pH POC ABG pCO2 POC ABG pO2 ABG pO2 ABG HCO3 ABG O2 Saturation ABG Base Excess ABG Hemoglobin ABG Oxyhemoglobin ABG Sodium ABG Potassium ABG Chloride ABG Glucose Sodium 161 H* Potassium Chloride 129.8 H Carbon Dioxide 20 L BUN 80 H Creatinine 2.9 H Glucose 139 H POC Glucose 115 H 119 H Lactic Acid Calcium 8.3 L Phosphorus AST Total Creatine Kinase Troponin T HDL Cholesterol Arterial Blood Glucose Arterial Blood Ionized Calcium Urine WBC (Auto) Urine Creatinine 09/28/20 09/29/20 09/29/20 23:26 00:50 05:13 WBC RBC Hgb Hct MCV RDW Plt Count Lymph % (Auto) [place] % (Auto) Lymph # (Auto) [place] # (Auto) Seg Neutrophils % Seg Neuts % (Manual) Lymphocytes % (Manual) Seg Neutrophils # PT INR ABG pH POC ABG pCO2 POC ABG pO2 ABG pO2 ABG HCO3 ABG O2 Saturation ABG Base Excess ABG Hemoglobin ABG Oxyhemoglobin ABG Sodium ABG Potassium ABG Chloride ABG Glucose Sodium 164 H* Potassium Chloride 128.9 H Carbon Dioxide BUN 84 H Creatinine 3.1 H Glucose 125 H POC Glucose 121 H 116 H Lactic Acid Calcium Phosphorus AST Total Creatine Kinase Troponin T HDL Cholesterol Arterial Blood Glucose Arterial Blood Ionized Calcium Urine WBC (Auto) Urine Creatinine 09/29/20 09/29/20 09/29/20 07:24 07:24 11:25 WBC 17.2 H RBC Hgb 11.5 L Hct 35.1 L MCV RDW 16.0 H Plt Count 114 L Lymph % (Auto) [place] % (Auto) Lymph # (Auto) [place] # (Auto) Seg Neutrophils % Seg Neuts % (Manual) Lymphocytes % (Manual) Seg Neutrophils # PT INR ABG pH POC ABG pCO2 POC ABG pO2 ABG pO2 ABG HCO3 ABG O2 Saturation ABG Base Excess ABG Hemoglobin ABG Oxyhemoglobin ABG Sodium ABG Potassium ABG Chloride ABG Glucose Sodium 167 H* Potassium Chloride 133.5 H Carbon Dioxide BUN 95 H Creatinine 3.1 H Glucose 157 H POC Glucose 118 H Lactic Acid Calcium Phosphorus AST Total Creatine Kinase Troponin T HDL Cholesterol Arterial Blood Glucose Arterial Blood Ionized Calcium Urine WBC (Auto) Urine Creatinine 09/29/20 09/29/20 09/29/20 12:52 18:12 21:16 WBC RBC Hgb Hct MCV RDW Plt Count Lymph % (Auto) [place] % (Auto) Lymph # (Auto) [place] # (Auto) Seg Neutrophils % Seg Neuts % (Manual) Lymphocytes % (Manual) Seg Neutrophils # PT INR ABG pH POC ABG pCO2 POC ABG pO2 ABG pO2 ABG HCO3 ABG O2 Saturation ABG Base Excess ABG Hemoglobin ABG Oxyhemoglobin ABG Sodium ABG Potassium ABG Chloride ABG Glucose Sodium 167 H* 162 H* Potassium 3.5 L Chloride 133.3 H 126.6 H Carbon Dioxide BUN 93 H 92 H Creatinine 3.0 H 2.8 H Glucose 130 H 147 H POC Glucose 133 H Lactic Acid Calcium 8.3 L Phosphorus AST Total Creatine Kinase Troponin T HDL Cholesterol Arterial Blood Glucose Arterial Blood Ionized Calcium Urine WBC (Auto) Urine Creatinine 09/29/20 09/30/20 09/30/20 23:35 00:27 02:59 WBC RBC Hgb Hct MCV RDW Plt Count Lymph % (Auto) [place] % (Auto) Lymph # (Auto) [place] # (Auto) Seg Neutrophils % Seg Neuts % (Manual) Lymphocytes % (Manual) Seg Neutrophils # PT INR ABG pH POC ABG pCO2 28.6 L POC ABG pO2 70.4 L ABG pO2 ABG HCO3 ABG O2 Saturation ABG Base Excess ABG Hemoglobin ABG Oxyhemoglobin 93.7 L ABG Sodium 158.6 H ABG Potassium 3.3 L ABG Chloride 127.0 H ABG Glucose 167 H Sodium 162 H* Potassium 3.5 L Chloride 127.6 H Carbon Dioxide 21 L BUN 87 H Creatinine 2.7 H Glucose 147 H POC Glucose 117 H Lactic Acid Calcium Phosphorus AST Total Creatine Kinase Troponin T HDL Cholesterol Arterial Blood Glucose 167 H Arterial Blood Ionized Calcium Urine WBC (Auto) Urine Creatinine 09/30/20 09/30/20 09/30/20 04:40 05:13 05:25 WBC RBC Hgb Hct MCV RDW Plt Count Lymph % (Auto) [place] % (Auto) Lymph # (Auto) [place] # (Auto) Seg Neutrophils % Seg Neuts % (Manual) Lymphocytes % (Manual) Seg Neutrophils # PT INR ABG pH POC ABG pCO2 POC ABG pO2 ABG pO2 ABG HCO3 ABG O2 Saturation ABG Base Excess ABG Hemoglobin ABG Oxyhemoglobin ABG Sodium ABG Potassium ABG Chloride ABG Glucose Sodium 162 H* Potassium Chloride 127.2 H Carbon Dioxide 20 L BUN 89 H Creatinine 2.8 H Glucose 132 H POC Glucose 43 L 143 H Lactic Acid Calcium 8.1 L Phosphorus AST Total Creatine Kinase Troponin T HDL Cholesterol Arterial Blood Glucose Arterial Blood Ionized Calcium Urine WBC (Auto) Urine Creatinine 09/30/20 09/30/20 09/30/20 11:14 13:37 20:32 WBC RBC Hgb Hct MCV RDW Plt Count Lymph % (Auto) [place] % (Auto) Lymph # (Auto) [place] # (Auto) Seg Neutrophils % Seg Neuts % (Manual) Lymphocytes % (Manual) Seg Neutrophils # PT INR ABG pH POC ABG pCO2 POC ABG pO2 ABG pO2 ABG HCO3 ABG O2 Saturation ABG Base Excess ABG Hemoglobin ABG Oxyhemoglobin ABG Sodium ABG Potassium ABG Chloride ABG Glucose Sodium 155 H 156 H Potassium Chloride 123.8 H 123.2 H Carbon Dioxide 20 L 21 L BUN 86 H 77 H Creatinine 2.4 H 2.3 H Glucose 135 H 119 H POC Glucose 125 H Lactic Acid Calcium 8.2 L Phosphorus AST Total Creatine Kinase Troponin T HDL Cholesterol Arterial Blood Glucose Arterial Blood Ionized Calcium Urine WBC (Auto) Urine Creatinine 10/01/20 10/01/20 10/01/20 00:11 04:15 04:15 WBC 11.8 H RBC Hgb 11.7 L Hct 35.2 L MCV RDW Plt Count 107 L Lymph % (Auto) [place] % (Auto) Lymph # (Auto) [place] # (Auto) Seg Neutrophils % Seg Neuts % (Manual) Lymphocytes % (Manual) Seg Neutrophils # PT INR ABG pH POC ABG pCO2 30.6 L POC ABG pO2 ABG pO2 ABG HCO3 ABG O2 Saturation ABG Base Excess ABG Hemoglobin 11.5 L ABG Oxyhemoglobin ABG Sodium 156.2 H ABG Potassium 3.3 L ABG Chloride 124.0 H ABG Glucose 156 H Sodium 155 H Potassium 3.4 L Chloride 123.1 H Carbon Dioxide 21 L BUN 77 H Creatinine 2.1 H Glucose 153 H POC Glucose Lactic Acid Calcium Phosphorus AST Total Creatine Kinase Troponin T HDL Cholesterol Arterial Blood Glucose 156 H Arterial Blood Ionized Calcium Urine WBC (Auto) Urine Creatinine 10/01/20 10/01/20 10/01/20 05:18 12:09 13:20 WBC RBC Hgb Hct MCV RDW Plt Count Lymph % (Auto) [place] % (Auto) Lymph # (Auto) [place] # (Auto) Seg Neutrophils % Seg Neuts % (Manual) Lymphocytes % (Manual) Seg Neutrophils # PT INR ABG pH POC ABG pCO2 POC ABG pO2 ABG pO2 ABG HCO3 ABG O2 Saturation ABG Base Excess ABG Hemoglobin ABG Oxyhemoglobin ABG Sodium ABG Potassium ABG Chloride ABG Glucose Sodium 153 H Potassium Chloride 120.1 H Carbon Dioxide 19 L BUN 73 H Creatinine 2.0 H Glucose 147 H POC Glucose 116 H 139 H Lactic Acid Calcium Phosphorus AST Total Creatine Kinase Troponin T HDL Cholesterol Arterial Blood Glucose Arterial Blood Ionized Calcium Urine WBC (Auto) Urine Creatinine 10/01/20 10/01/20 10/01/20 13:20 17:26 20:22 WBC RBC Hgb Hct MCV RDW Plt Count Lymph % (Auto) [place] % (Auto) Lymph # (Auto) [place] # (Auto) Seg Neutrophils % Seg Neuts % (Manual) Lymphocytes % (Manual) Seg Neutrophils # PT INR ABG pH POC ABG pCO2 POC ABG pO2 ABG pO2 ABG HCO3 ABG O2 Saturation ABG Base Excess ABG Hemoglobin ABG Oxyhemoglobin ABG Sodium ABG Potassium ABG Chloride ABG Glucose Sodium 153 H 149 H Potassium Chloride 116.3 H Carbon Dioxide 21 L BUN 73 H Creatinine 2.1 H Glucose 133 H POC Glucose 144 H Lactic Acid Calcium 8.2 L Phosphorus AST Total Creatine Kinase Troponin T HDL Cholesterol Arterial Blood Glucose Arterial Blood Ionized Calcium Urine WBC (Auto) Urine Creatinine 10/01/20 10/01/20 10/02/20 20:22 23:45 04:47 WBC RBC Hgb Hct MCV RDW Plt Count Lymph % (Auto) [place] % (Auto) Lymph # (Auto) [place] # (Auto) Seg Neutrophils % Seg Neuts % (Manual) Lymphocytes % (Manual) Seg Neutrophils # PT INR ABG pH POC ABG pCO2 POC ABG pO2 ABG pO2 ABG HCO3 ABG O2 Saturation ABG Base Excess ABG Hemoglobin ABG Oxyhemoglobin ABG Sodium ABG Potassium ABG Chloride ABG Glucose Sodium 150 H 148 H Potassium Chloride Carbon Dioxide BUN Creatinine Glucose POC Glucose 124 H Lactic Acid Calcium Phosphorus AST Total Creatine Kinase Troponin T HDL Cholesterol Arterial Blood Glucose Arterial Blood Ionized Calcium Urine WBC (Auto) Urine Creatinine 10/02/20 10/02/20 04:47 05:19 WBC RBC 3.58 L Hgb 11.1 L Hct 33.2 L MCV RDW 15.3 H Plt Count 117 L Lymph % (Auto) [place] % (Auto) Lymph # (Auto) [place] # (Auto) Seg Neutrophils % Seg Neuts % (Manual) Lymphocytes % (Manual) Seg Neutrophils # PT INR ABG pH POC ABG pCO2 POC ABG pO2 ABG pO2 ABG HCO3 ABG O2 Saturation ABG Base Excess ABG Hemoglobin ABG Oxyhemoglobin ABG Sodium ABG Potassium ABG Chloride ABG Glucose Sodium Potassium Chloride Carbon Dioxide BUN Creatinine Glucose POC Glucose 126 H Lactic Acid Calcium Phosphorus AST Total Creatine Kinase Troponin T HDL Cholesterol Arterial Blood Glucose Arterial Blood Ionized Calcium Urine WBC (Auto) Urine Creatinine
--- NOTE | 2020-10-02 11:52 | Progress Note ---
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 Serum creatinine yesterday was 2.1 and prior 2.3 JAMEY secondary to ATN. Urine creatinine low signalling some ATN Creatinine trending down, has good UOP, no acute HD indication right now. Sodium level noted to be 148 today, prior was 150-On free water intake 300 ml every 4 hours Check sodium level every 8 hours Renal US-No hydronephrosis. Has PCKD. No indication for HD Renally dose medications Strict I&O's daily Monitor closely Plan of care reviewed with Dr. Tee Subjective Date of service: 10/02/20 Principal diagnosis: Acute respiratory failure Interval history: Patient seen lying in bed. He is intubated and unresponsive. Objective - Vital Signs Vital signs: Vital Signs - 12hr 10/01/20 10/02/20 10/02/20 23:31 00:00 00:31 Temperature 99.1 F Pulse Rate 91 H 96 H 95 H Pulse Rate [ 96 H From Monitor] Respiratory 29 H 27 H 28 H Rate Blood Pressure 111/64 109/62 109/62 O2 Sat by Pulse 96 95 95 Oximetry 10/02/20 10/02/20 10/02/20 00:37 00:42 01:00 Temperature Pulse Rate 96 H 96 H 98 H Pulse Rate [ From Monitor] Respiratory 26 H Rate Blood Pressure 109/62 109/62 109/62 O2 Sat by Pulse 94 95 Oximetry 10/02/20 10/02/20 10/02/20 01:30 02:00 02:28 Temperature Pulse Rate 98 H 101 H 96 H Pulse Rate [ From Monitor] Respiratory 28 H 29 H Rate Blood Pressure 107/65 113/63 109/62 O2 Sat by Pulse 93 94 Oximetry 10/02/20 10/02/20 10/02/20 02:30 03:00 03:30 Temperature Pulse Rate 104 H 106 H 107 H Pulse Rate [ From Monitor] Respiratory 29 H 30 H 31 H Rate Blood Pressure 113/63 98/65 98/65 O2 Sat by Pulse 93 94 93 Oximetry 10/02/20 10/02/20 10/02/20 04:00 04:30 04:51 Temperature 100.8 F H Pulse Rate 107 H 108 H 109 H Pulse Rate [ 107 H From Monitor] Respiratory 28 H 33 H Rate Blood Pressure 95/68 95/68 95/68 O2 Sat by Pulse 94 95 94 Oximetry 10/02/20 10/02/20 10/02/20 05:00 05:29 05:30 Temperature Pulse Rate 107 H 108 H 108 H Pulse Rate [ From Monitor] Respiratory 30 H 30 H Rate Blood Pressure 108/69 108/69 108/69 O2 Sat by Pulse 93 93 Oximetry 10/02/20 10/02/20 10/02/20 06:00 06:18 06:30 Temperature Pulse Rate 110 H 106 H 104 H Pulse Rate [ From Monitor] Respiratory 20 32 H Rate Blood Pressure 104/67 104/67 104/67 O2 Sat by Pulse 96 97 Oximetry 10/02/20 10/02/20 10/02/20 07:00 07:30 08:00 Temperature Pulse Rate 99 H 92 H 90 Pulse Rate [ 89 From Monitor] Respiratory 30 H 27 H 28 H Rate Blood Pressure 94/60 94/60 93/58 O2 Sat by Pulse 97 98 98 Oximetry 10/02/20 10/02/20 10/02/20 08:30 08:32 09:00 Temperature 99.4 F Pulse Rate 88 89 Pulse Rate [ From Monitor] Respiratory 28 H 29 H Rate Blood Pressure 93/58 94/57 O2 Sat by Pulse 98 96 Oximetry 10/02/20 10/02/20 10/02/20 09:01 09:30 10:00 Temperature Pulse Rate 88 93 H Pulse Rate [ From Monitor] Respiratory 29 H 28 H Rate Blood Pressure 94/57 94/57 80/50 O2 Sat by Pulse 97 97 Oximetry 10/02/20 10/02/20 10/02/20 10:08 10:30 10:59 Temperature Pulse Rate 89 90 Pulse Rate [ From Monitor] Respiratory 27 H 29 H Rate Blood Pressure 100/64 106/63 107/63 O2 Sat by Pulse 96 96 Oximetry 10/02/20 11:00 Temperature Pulse Rate 91 H Pulse Rate [ From Monitor] Respiratory 29 H Rate Blood Pressure 107/63 O2 Sat by Pulse 95 Oximetry - General Appearance General appearance: intubated, other (unresponsive) Respiratory: Present: Decreased Breath Sounds, Other (Intubated) Cardiology: S1S2 Gastrointestinal: normoactive bowel sounds Integumentary: warm and dry Neurologic: other (Unresponsive) Musculoskeletal: other (No edema) - Lab 10/02/20 04:47 10/02/20 04:47 Most recent lab results ABG pH 7.445 (7.320-7.450) 10/01/20 00:11 ABG pCO2 40.5 mm Hg 09/21/20 02:15 ABG pO2 244.1 mm Hg (80.0-90.0) H 09/21/20 02:15 ABG HCO3 17.7 mmol/L (20.0-26.0) L 09/21/20 02:15 ABG O2 Saturation 96.5 (0-100) 10/01/20 00:11 Calcium 8.2 mg/dL (8.4-10.2) L 10/01/20 20:22 Phosphorus 2.50 mg/dL (2.5-4.5) D 09/27/20 04:40 Magnesium 2.30 mg/dL (1.7-2.3) 10/01/20 13:20 Urine Creatinine 60.4 mg/dL (0.1-20.0) H 09/21/20 14:27 Urine Sodium 108 mmol/L 09/21/20 14:27 Medications & Allergies - Medications Allergies/Adverse Reactions: Allergies No Known Allergies Allergy (Unverified 09/20/20 23:08) Home Medications: Home Medications Medication Instructions Recorded Confirmed Last Taken Type Furosemide [Lasix] 40 mg PO QDAY 09/21/20 09/21/20 Unknown History Simvastatin 20 mg PO QDAY 09/21/20 09/21/20 Unknown History amLODIPine [Norvasc] 5 mg PO DAILY 09/21/20 09/21/20 Unknown History carvediloL [Coreg] 25 mg PO BID 09/21/20 09/21/20 Unknown History lisinopriL [Zestril TAB] 40 mg PO QDAY 09/21/20 09/21/20 Unknown History Active Medications: Generic Name Dose Route Start Last Admin Trade Name Freq PRN Reason Stop Dose Admin Acetaminophen 650 mg 09/21/20 15:51 10/02/20 06:18 Acetaminophen 325 Mg/10.15 Ml Oral Liqd Unit Dose FEEDTUBE 650 mg Q6H PRN Administration Pain, Mild (1-3) Lipase/Protease/Amylase 1 each 09/25/20 14:22 Lipase 10,500/Protease 25,000/Amylase 43,750 (Units) Dr Greer FEEDTUBE PRN PRN For Clogged Feeding Tube Aspirin 325 mg 09/21/20 16:00 10/02/20 09:39 Aspirin 325 Mg Tab PO 325 mg QDAY PATSY Administration Atorvastatin Calcium 40 mg 09/23/20 22:00 10/01/20 21:58 Atorvastatin 40 Mg Tab PO 40 mg QHS PATSY Administration Dextrose 0 ml 09/30/20 05:37 09/30/20 05:57 Dextrose 50% In Water (25gm) 50 Ml Syringe IV 50 ml Q30MIN PRN Administration Hypoglycemia Protocol Famotidine 20 mg 09/25/20 10:00 10/02/20 09:39 Famotidine 20 Mg Tab PO 20 mg DAILY PATSY Administration Heparin Sodium (Porcine) 5,000 unit 09/21/20 22:00 10/02/20 09:53 Heparin 5,000 Unit/1 Ml Vial SUB-Q 5,000 unit Q12HR PATSY Administration Hydrophilic Ointment 1 applic 09/20/20 22:59 Lip Therapy Vaseline TP Q2HR PRN Dry Lips Norepinephrine 4 mg in 250 mls @ 7.5 mls/hr 09/21/20 05:00 Levophed Drip 4 Mg/Ns 250 Ml IV TITR PATSY Protocol 2 MCG/MIN Fentanyl Citrate 2,000 mcg in 100 mls @ 5.105 mls/hr 09/22/20 11:30 09/25/20 18:17 Fentanyl Drip Premix IV 0 mcg/kg/hr TITR PATSY 0 mls/hr Titration Protocol 1 MCG/KG/HR Vancomycin HCl 1 gm in 250 mls @ 167.007 mls/hr 10/02/20 10:00 10/02/20 09:39 Vancomycin/Ns 1 Gm/250 Ml IV 10/02/20 11:29 167.007 mls/hr ONCE ONE Administration Metoprolol Tartrate 50 mg 09/27/20 18:00 10/02/20 06:18 Metoprolol Tartrate 50 Mg Tab PO Not Given Q6HR [facility] Multi-Ingred Cream/Lotion/Oil/Oint 1 applic 09/20/20 22:59 Mineral Oil/Petrolatum, White Ophth Oint 3.5 Gm OU Q4HR PRN Dry Eye(s) Ondansetron HCl 4 mg 09/21/20 01:24 Ondansetron 4 Mg/2 Ml Inj IV Q8H PRN Nausea And Vomiting Simple Syrup 15 ml 09/25/20 14:22 Simple Syrup 15 Ml FEEDTUBE PRN PRN Hypoglycemia Simple Syrup 30 ml 09/25/20 14:22 Simple Syrup 15 Ml FEEDTUBE PRN PRN Hypoglycemia Sodium Bicarbonate 325 mg 09/25/20 14:22 Sodium Bicarbonate 325 Mg Tab FEEDTUBE PRN PRN For Clogged Feeding Tube Sodium Chloride 10 ml 09/21/20 10:00 10/02/20 09:02 Sodium Chloride 0.9% 10 Ml Flush Syringe IV Not Given BID PATSY Sodium Chloride 10 ml 09/21/20 01:24 09/24/20 18:21 Sodium Chloride 0.9% 10 Ml Flush Syringe IV 10 ml PRN PRN Administration LINE FLUSH
--- NOTE | 2020-10-02 12:04 | Progress Note ---
Assessment and Plan Cultures: SARS-CoV-2 PCR negative. Sputum culture 09/20/2020 upper respiratory misha. Urine culture 09/20/2020 10-100,000 mixed colonies. Blood culture 09/21/2020 no growth today. Blood culture 09/25/2020 no growth today Tracheal aspirate culture 09/25/2020 MRSA MRSA PCR positive Tracheal aspirate culture 09/26/2020 MRSA Assessment: 50-year-old male with history of hypertension, admitted on 09/20/2020 secondary to syncope followed up by outside cardiac arrest: #SIRS rule out sepsis: fever resolving likely due to MRSA VAP; likely secondary to psdkwgk-gm-oan-hospital cardiac arrest +/-UTI. Chest x-ray without evidence of consolidation. Blood culture so far negative. #MRSA VAP: Tracheal aspirate grew MRSA x2. Was on linezolid for 3 days. Platelets dropping will switched to vancomycin. #UTI: Urine culture grew mixed bacteria. Completed Rocephin for 5 days. #Xfmwgyu-sj-iho-hospital cardiac arrest: per cards #Acute encephalopathy: Likely secondary to anoxic brain injury. Brain MRI shows diffuse cerebral cortical restricted diffuse edema consistent with anoxic brain. #Cardiomyopathy: Transthoracic echo shows severely dilated left ventricle, the ventricle systolic function severely decreased, borderline concentric left ventricle hypertrophy, severe global hypokinesis of the left ventricle, LVEF 10 to 15%, mild MR. Cardiology on board. #JAMEY: Better #Transaminitis: Likely due to sepsis. #Thrombocytopenia: continue to worse Recommendations -Continue vancomycin renally adjusted D6 of 10 for MRSA VAP -Monitor platelets -Neuro evaluation, some improvement, repeat CT head and EEG per neuro Guarded prognosis Will follow. Caroline Herrera MD [facility] ([facility] O: [phone] F: [phone] Subjective Date of service: 10/02/20 Principal diagnosis: Acute respiratory failure Interval history: Febrile to 100.8, normal white count. Objective - Exam Narrative Exam: General appearance: Intubated unresponsive eyes opening some tracking Eyes: anicteric sclerae, moist conjunctivae; no lid-lag; PERRLA HENT: Normocephalic, Atraumatic; normal external ears, nares open, oropharynx endotracheal tube in place creamy secretions Neck: supple, tracheal midline, no JVD Lungs: Bilateral rhonchi CV: RRR no murmur Abdomen: Soft, non-tender; no masses or hepatosplenomegaly Extremities: no edema, no cyanosis Skin: No rash. Psych: Unresponsive Neuro: somnolent eye opening - Constitutional Vitals: Vital Signs Temp Pulse Resp BP Pulse Ox 99.4 F 93 H 29 H 107/63 95 10/02/20 08:32 10/02/20 11:23 10/02/20 11:00 10/02/20 11:23 10/02/20 11:00 Temperature -Last 24 Hours Temperature 99.4 F Temperature 100.8 F Temperature 99.1 F Temperature 99.4 F Temperature 99.2 F - Labs CBC & Chem 7: 10/02/20 04:47 10/02/20 04:47 Labs: Abnormal lab results 10/01/20 10/01/20 10/01/20 Range/Units 12:09 13:20 13:20 RBC (3.65-5.03) M/mm3 Hgb (11.8-15.2) gm/dl Hct (35.5-45.6) % RDW (13.2-15.2) % Plt Count (140-440) K/mm3 Sodium 153 H 153 H (137-145) mmol/L Chloride 120.1 H (98-107) mmol/L Carbon Dioxide 19 L (22-30) mmol/L BUN 73 H (9-20) mg/dL Creatinine 2.0 H (0.8-1.3) mg/dL Glucose 147 H (75-100) mg/dL POC Glucose 139 H (70-105) mg/dL Calcium (8.4-10.2) mg/dL 10/01/20 10/01/20 10/01/20 Range/Units 17:26 20:22 20:22 RBC (3.65-5.03) M/mm3 Hgb (11.8-15.2) gm/dl Hct (35.5-45.6) % RDW (13.2-15.2) % Plt Count (140-440) K/mm3 Sodium 149 H 150 H (137-145) mmol/L Chloride 116.3 H (98-107) mmol/L Carbon Dioxide 21 L (22-30) mmol/L BUN 73 H (9-20) mg/dL Creatinine 2.1 H (0.8-1.3) mg/dL Glucose 133 H (75-100) mg/dL POC Glucose 144 H (70-105) mg/dL Calcium 8.2 L (8.4-10.2) mg/dL 10/01/20 10/02/20 10/02/20 Range/Units 23:45 04:47 04:47 RBC 3.58 L (3.65-5.03) M/mm3 Hgb 11.1 L (11.8-15.2) gm/dl Hct 33.2 L (35.5-45.6) % RDW 15.3 H (13.2-15.2) % Plt Count 117 L (140-440) K/mm3 Sodium 148 H (137-145) mmol/L Chloride (98-107) mmol/L Carbon Dioxide (22-30) mmol/L BUN (9-20) mg/dL Creatinine (0.8-1.3) mg/dL Glucose (75-100) mg/dL POC Glucose 124 H (70-105) mg/dL Calcium (8.4-10.2) mg/dL 10/02/20 10/02/20 Range/Units 05:19 11:18 RBC (3.65-5.03) M/mm3 Hgb (11.8-15.2) gm/dl Hct (35.5-45.6) % RDW (13.2-15.2) % Plt Count (140-440) K/mm3 Sodium (137-145) mmol/L Chloride (98-107) mmol/L Carbon Dioxide (22-30) mmol/L BUN (9-20) mg/dL Creatinine (0.8-1.3) mg/dL Glucose (75-100) mg/dL POC Glucose 126 H 121 H (70-105) mg/dL Calcium (8.4-10.2) mg/dL
[2020-10-03] MEDS: METOPROLOL TARTRATE 50 MG TAB PO SCH ×4 (00:27→17:52)
[2020-10-03] MEDS: ACETAMINOPHEN 325 MG/10.15 ML ORAL LIQD UNIT DOSE FEEDTUBE PRN (02:12)
[2020-10-03 05:56] LABS: Hematocrit 32.5 % (35.5-45.6); Mean Corpuscular HGB Conc 34 % (32-34); Mean Corpuscular Volume 92 fl (84-94); Platelet Count 121 K/mm3 (140-440); Red Blood Count 3.52 M/mm3 (3.65-5.03); Red Cell Distribution Width 15.1 % (13.2-15.2)
[2020-10-03 06:09] LABS: Calcium 8.6 mg/dL (8.4-10.2)
[2020-10-03] MEDS: HEPARIN 5,000 UNIT/1 ML VIAL SUB-Q SCH ×2 (09:25→21:39)
[2020-10-03] MEDS: ASPIRIN 325 MG TAB PO SCH (09:25)
[2020-10-03] MEDS: FAMOTIDINE 20 MG TAB PO SCH (09:26)
--- NOTE | 2020-10-03 11:27 | Event Note ---
Date: 10/03/20 Called daughter to discuss goals of care over the phone as I will not be here during visiting hours today. Explained anoxic brain injury and the likelihood of meaningful recovery being none. Patient is an AND which I think medically is very reasonable. He is currently on PSV and tolerating. Have asked RT to obtain an ABG to evaluate gas exchange. His mental state would be a big factor in extubation if meaningful recovery were a good chance, however I would not recommend trach and peg for this patient and agree that hospice is very reas onable. I explained to the daughter that we would consider extubation knowing that if the patient developed respiratory compromise, we would not put the tube back in and she understands this. CM present during phone conversation as well.
--- NOTE | 2020-10-03 12:15 | Progress Note ---
Assessment and Plan - Patient Problems (1) Cardiopulmonary arrest Current Visit: Yes Status: Acute Plan to address problem: An echocardiogram demonstrates severe left ventricular dysfunction, ejection fraction 10-15%. Patient presented with out of hospital cardiopulmonary arrest, underlying severe dilated cardiomyopathy, severe anoxic encephalopathy, currently on supportive management. Subjective Date of service: 10/03/20 Principal diagnosis: Acute respiratory failure Interval history: No interval cardiac changes. Currently, he is stable sinus rhythm on telemetry. Objective Vital Signs Temp Pulse Pulse Resp BP Pulse Ox 10/03/20 12:00 99.4 F 78 28 H 93/56 10/03/20 11:30 84 28 H 93/60 93 10/03/20 11:04 86 94/56 10/03/20 11:00 86 29 H 94/56 10/03/20 10:30 87 22 91/58 95 10/03/20 10:00 90 14 103/58 95 10/03/20 09:30 93 H 30 H 101/59 93 10/03/20 09:00 89 17 104/62 97 10/03/20 08:34 99.9 F H 10/03/20 08:30 90 21 104/65 96 10/03/20 08:05 89 107/66 96 10/03/20 08:00 88 88 29 H 107/66 93 10/03/20 07:59 89 107/66 96 10/03/20 07:30 86 22 101/56 92 10/03/20 07:00 86 27 H 103/60 95 10/03/20 06:30 79 28 H 97/59 93 10/03/20 06:00 98 H 28 H 100/69 10/03/20 05:30 84 30 H 102/61 94 10/03/20 05:00 84 29 H 115/74 93 10/03/20 04:30 91 H 31 H 112/73 93 10/03/20 04:07 89 100/63 94 10/03/20 04:00 98.6 F 89 89 30 H 100/63 93 10/03/20 03:30 86 29 H 101/60 92 10/03/20 03:00 86 27 H 108/67 91 10/03/20 02:30 85 29 H 106/64 91 10/03/20 02:00 84 30 H 91/64 91 10/03/20 01:30 82 31 H 98/63 91 10/03/20 01:00 84 28 H 104/60 92 18 00:30 100 H 34 H 99/69 96 10/03/20 00:27 96 H 98/61 10/03/20 00:08 96 H 99/64 94 10/03/20 00:00 100.5 F H 97 H 97 H 30 H 99/64 95 10/02/20 23:32 97 H 32 H 96/61 95 10/02/20 23:30 96 H 31 H 96/61 10/02/20 23:00 97 H 31 H 104/61 10/02/20 22:30 98 H 33 H 106/67 94 10/02/20 22:00 100 H 31 H 108/65 10/02/20 21:30 97 H 32 H 106/70 94 10/02/20 21:00 93 H 31 H 112/66 10/02/20 20:30 92 H 31 H 99/63 10/02/20 20:01 92 H 90/60 92 10/02/20 20:00 100.9 F H 90 90 32 H 90/60 92 10/02/20 19:30 87 33 H 103/60 90 10/02/20 19:00 83 31 H 94/58 90 10/02/20 18:30 82 31 H 101/58 89 10/02/20 18:00 83 30 H 104/60 92 10/02/20 17:33 87 104/60 10/02/20 17:30 87 26 H 104/60 92 10/02/20 17:00 88 22 103/68 10/02/20 16:30 78 26 H 94/58 10/02/20 16:00 99.9 F H 78 73 28 H 86/62 97 10/02/20 15:31 76 20 85/53 97 10/02/20 15:30 77 27 H 88/54 94 10/02/20 15:00 77 27 H 85/53 92 10/02/20 14:30 78 28 H 91/55 93 10/02/20 14:00 76 26 H 97/61 94 10/02/20 13:30 74 25 H 97/61 10/02/20 13:00 74 27 H 98/60 93 10/02/20 12:30 74 29 H 104/62 93 - Physical Examination General: Other (intubated, unresponsive) HEENT: Positive: Other (Pupils fixed) Cardiac: Positive: Reg Rate and Rhythm - Labs and Meds CBC 10/03/20 Range/Units 05:22 WBC 8.7 (4.5-11.0) K/mm3 RBC 3.52 L (3.65-5.03) M/mm3 Hgb 11.0 L (11.8-15.2) gm/dl Hct 32.5 L (35.5-45.6) % Plt Count 121 L (140-440) K/mm3 Comprehensive Metabolic Panel 10/02/20 10/03/20 10/03/20 Range/Units 15:55 00:27 05:22 Sodium 146 H 143 147 H (137-145) mmol/L Potassium 3.6 (3.6-5.0) mmol/L Chloride 113.4 H (98-107) mmol/L Carbon Dioxide 20 L (22-30) mmol/L BUN 70 H (9-20) mg/dL Creatinine 2.0 H (0.8-1.3) mg/dL Glucose 125 H (75-100) mg/dL Calcium 8.6 (8.4-10.2) mg/dL
--- NOTE | 2020-10-03 12:35 | Progress Note ---
Assessment and Plan S/p Cardiac arrest Acute hypoxic Respiratory failure JAMEY likely 2/2 ischemic ATN, cardiac arrest Cardiomyopathy, EF 10-15% Acute toxic and anoxic metabolic encephalopathy Sepsis Hyperchloremia Transaminitis Hypotension Plan: Stable Cr, good UOP now need for D5W No acute indication for HD today Continue free water 300 ml via orogastric tube q 4 hrs Renally dose medications Strict [place] Catheter: Yes Subjective Date of service: 10/03/20 Principal diagnosis: Acute respiratory failure Interval history: Hospice and extubation was discussed with patient's family. Objective - Vital Signs Vital signs: Vital Signs - 12hr 10/03/20 10/03/20 10/03/20 01:00 01:30 02:00 Temperature Pulse Rate 84 82 84 Pulse Rate [ From Monitor] Respiratory 28 H 31 H 30 H Rate Blood Pressure 104/60 98/63 91/64 O2 Sat by Pulse 92 91 91 Oximetry 10/03/20 10/03/20 10/03/20 02:30 03:00 03:30 Temperature Pulse Rate 85 86 86 Pulse Rate [ From Monitor] Respiratory 29 H 27 H 29 H Rate Blood Pressure 106/64 108/67 101/60 O2 Sat by Pulse 91 91 92 Oximetry 10/03/20 10/03/20 10/03/20 04:00 04:07 04:30 Temperature 98.6 F Pulse Rate 89 89 91 H Pulse Rate [ 89 From Monitor] Respiratory 30 H 31 H Rate Blood Pressure 100/63 100/63 112/73 O2 Sat by Pulse 93 94 93 Oximetry 10/03/20 10/03/20 10/03/20 05:00 05:30 06:00 Temperature Pulse Rate 84 84 98 H Pulse Rate [ From Monitor] Respiratory 29 H 30 H 28 H Rate Blood Pressure 115/74 102/61 100/69 O2 Sat by Pulse 93 94 Oximetry 10/03/20 10/03/20 10/03/20 06:30 07:00 07:30 Temperature Pulse Rate 79 86 86 Pulse Rate [ From Monitor] Respiratory 28 H 27 H 22 Rate Blood Pressure 97/59 103/60 101/56 O2 Sat by Pulse 93 95 92 Oximetry 10/03/20 10/03/20 10/03/20 07:59 08:00 08:05 Temperature Pulse Rate 89 88 89 Pulse Rate [ 88 From Monitor] Respiratory 29 H Rate Blood Pressure 107/66 107/66 107/66 O2 Sat by Pulse 96 93 96 Oximetry 10/03/20 10/03/20 10/03/20 08:30 08:34 09:00 Temperature 99.9 F H Pulse Rate 90 89 Pulse Rate [ From Monitor] Respiratory 21 17 Rate Blood Pressure 104/65 104/62 O2 Sat by Pulse 96 97 Oximetry 10/03/20 10/03/20 10/03/20 09:30 10:00 10:30 Temperature Pulse Rate 93 H 90 87 Pulse Rate [ From Monitor] Respiratory 30 H 14 22 Rate Blood Pressure 101/59 103/58 91/58 O2 Sat by Pulse 93 95 95 Oximetry 10/03/20 10/03/20 10/03/20 11:00 11:04 11:30 Temperature Pulse Rate 86 86 84 Pulse Rate [ From Monitor] Respiratory 29 H 28 H Rate Blood Pressure 94/56 94/56 93/60 O2 Sat by Pulse 93 Oximetry 10/03/20 12:00 Temperature 99.4 F Pulse Rate 78 Pulse Rate [ 77 From Monitor] Respiratory 28 H Rate Blood Pressure 93/56 O2 Sat by Pulse 93 Oximetry - Lab 10/03/20 05:22 10/03/20 05:22 Most recent lab results ABG pH 7.425 (7.320-7.450) 10/03/20 11:25 ABG pCO2 40.5 mm Hg 09/21/20 02:15 ABG pO2 244.1 mm Hg (80.0-90.0) H 09/21/20 02:15 ABG HCO3 17.7 mmol/L (20.0-26.0) L 09/21/20 02:15 ABG O2 Saturation 96.8 (0-100) 10/03/20 11:25 Calcium 8.6 mg/dL (8.4-10.2) 10/03/20 05:22 Phosphorus 2.50 mg/dL (2.5-4.5) D 09/27/20 04:40 Magnesium 2.30 mg/dL (1.7-2.3) 10/01/20 13:20 Urine Creatinine 60.4 mg/dL (0.1-20.0) H 09/21/20 14:27 Urine Sodium 108 mmol/L 09/21/20 14:27 Medications & Allergies - Medications Allergies/Adverse Reactions: Allergies No Known Allergies Allergy (Unverified 09/20/20 23:08) Home Medications: Home Medications Medication Instructions Recorded Confirmed Last Taken Type Furosemide [Lasix] 40 mg PO QDAY 09/21/20 09/21/20 Unknown History Simvastatin 20 mg PO QDAY 09/21/20 09/21/20 Unknown History amLODIPine [Norvasc] 5 mg PO DAILY 09/21/20 09/21/20 Unknown History carvediloL [Coreg] 25 mg PO BID 09/21/20 09/21/20 Unknown History lisinopriL [Zestril TAB] 40 mg PO QDAY 09/21/20 09/21/20 Unknown History Active Medications: Generic Name Dose Route Start Last Admin Trade Name Freq PRN Reason Stop Dose Admin Acetaminophen 650 mg 09/21/20 15:51 10/03/20 02:12 Acetaminophen 325 Mg/10.15 Ml Oral Liqd Unit Dose FEEDTUBE 650 mg Q6H PRN Administration Pain, Mild (1-3) Lipase/Protease/Amylase 1 each 09/25/20 14:22 Lipase 10,500/Protease 25,000/Amylase 43,750 (Units) Dr Cap FEEDTUBE PRN PRN For Clogged Feeding Tube Aspirin 325 mg 09/21/20 16:00 10/03/20 09:25 Aspirin 325 Mg Tab PO 325 mg QDAY PATSY Administration Atorvastatin Calcium 40 mg 09/23/20 22:00 10/02/20 21:57 Atorvastatin 40 Mg Tab PO 40 mg QHS PATSY Administration Dextrose 0 ml 09/30/20 05:37 09/30/20 05:57 Dextrose 50% In Water (25gm) 50 Ml Syringe IV 50 ml Q30MIN PRN Administration Hypoglycemia Protocol Famotidine 20 mg 09/25/20 10:00 10/03/20 09:26 Famotidine 20 Mg Tab PO 20 mg DAILY PATSY Administration Heparin Sodium (Porcine) 5,000 unit 09/21/20 22:00 10/03/20 09:25 Heparin 5,000 Unit/1 Ml Vial SUB-Q 5,000 unit Q12HR PATSY Administration Hydrophilic Ointment 1 applic 09/20/20 22:59 Lip Therapy Vaseline TP Q2HR PRN Dry Lips Norepinephrine 4 mg in 250 mls @ 7.5 mls/hr 09/21/20 05:00 Levophed Drip 4 Mg/Ns 250 Ml IV TITR PATSY Protocol 2 MCG/MIN Fentanyl Citrate 2,000 mcg in 100 mls @ 5.105 mls/hr 09/22/20 11:30 09/25/20 18:17 Fentanyl Drip Premix IV 0 mcg/kg/hr TITR PATSY 0 mls/hr Titration Protocol 1 MCG/KG/HR Metoprolol Tartrate 50 mg 09/27/20 18:00 10/03/20 11:04 Metoprolol Tartrate 50 Mg Tab PO 50 mg Q6HR PATSY Administration Multi-Ingred Cream/Lotion/Oil/Oint 1 applic 09/20/20 22:59 Mineral Oil/Petrolatum, White Ophth Oint 3.5 Gm OU Q4HR PRN Dry Eye(s) Ondansetron HCl 4 mg 09/21/20 01:24 Ondansetron 4 Mg/2 Ml Inj IV Q8H PRN Nausea And Vomiting Simple Syrup 15 ml 09/25/20 14:22 Simple Syrup 15 Ml FEEDTUBE PRN PRN Hypoglycemia Simple Syrup 30 ml 09/25/20 14:22 Simple Syrup 15 Ml FEEDTUBE PRN PRN Hypoglycemia Sodium Bicarbonate 325 mg 09/25/20 14:22 Sodium Bicarbonate 325 Mg Tab FEEDTUBE PRN PRN For Clogged Feeding Tube Sodium Chloride 10 ml 09/21/20 10:00 10/03/20 09:26 Sodium Chloride 0.9% 10 Ml Flush Syringe IV Not Given BID PATSY Sodium Chloride 10 ml 09/21/20 01:24 09/24/20 18:21 Sodium Chloride 0.9% 10 Ml Flush Syringe IV 10 ml PRN PRN Administration LINE FLUSH
--- NOTE | 2020-10-03 14:09 | Progress Note ---
Assessment and Plan Assessment and plan: This is a 50-year-old male with hypertension and heart failure admitted s/p cardiac arrest with JAMEY, UTI, lactic acidosis, hypotension. Sepsis S/p cardiac arrest Acute hypoxic respiratory failure Acute kidney injury with underlying ATN Cardiomyopathy left ejection fraction of 10 to 15% Acute toxic and anoxic metabolic encephalopathy Urinary tract infection Thrombocytopenia Acute cystitis Coagulopathic Hypernatremia MRSA VAP Hyperchloremia Metabolic acidosis Lactic acidosis Hypertension Transaminitis likely secondary to sepsis Hypertension -CCM, cardiology, nephrology consulted, appreciate recommendations -s/p vasopressor support with Levophed, phenyl epinephrine, epinephrine -COVID 19 pcr (-) -Fentayl gtt -TF -09/20 CXR shows cardiomegaly -09/21 echocardiogram shows severely dilated left ventricle, the ventricle systolic function severely decreased, borderline concentric left ventricle hypertrophy, severe global hypokinesis of the left ventricle, LVEF 10 to 15%, mild MR, trace TR, RVSP is normal at 12 mmHg, trace pericardial effusion. 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 However, there appears to be mild cerebral white matter disease as described without CT evidence of acute intracranial hemorrhage. -09/22 CT head shows loss of reyna to white differentiation diffusely likely due to diffuse cerebral edema, interval decrease in ventricular size diffusely likely due to compression without herniation identified, suspected developing infarct in right occipital region without hemorrhage -09/23 bilateral carotid ultrasound shows less than 50% diameter stenosis in Right ICA and Left ICA -09/25 MRI brain shows diffuse cerebral cortical restricted diffusion and edema indicative of diffuse cerebral edema likely due to global anoxic brain injury -09/25 MRA head shows diffuse cerebral cortical restricted diffusion and edema indicative of diffuse cerebral edema likely due to global anoxic brain injury -09/28 CXR shows right pulmonary opacities in the right upper lung. Unchanged -s/p Rocephin for 5 days -IV Vancomycin (Was on linezolid for 3 days. Platelets dropping will switched to vancomycin per ID) -Hemoglobin A1c, hepatic panel pending -Trend CBC, BMP GI/DVT prophylaxis: PPI, heparin subcu, SCDs to bilateral lower extremities while in bed Disposition: ICU The high probability of a clinically significant, sudden or life threatening deterioration of the [multi] system(s) required my full and direct attention, intervention and personal management. The aggregate critical care time was [35] minutes. This time is in addition to time spent performing reported procedures but includes the following: [x] Data Review and interpretation [x] Patient assessment and monitoring of vital signs [x] Documentation [x] Medication orders and management History Interval history: This is a 50-year-old male with heart failure and hypertension who presents to the emergency department on 09/21 with cardiac arrest after syncopal episode about 45 minutes prior to arrival to the emergency department. Upon arrival to the emergency department patient was found to be hypotensive and subsequently started on pressors with significant improvement in his blood pressure. Work-up in the emergency department reveals lactic acidosis, initial troponin within normal limits however subsequent troponins were elevated, no obvious ischemic changes on EKG, UDS positive for marijuana, urinalysis significant for urinary tract infection, BUN/creatinine slightly elevated 26/21. CXR showed severe cardiomegaly with mild interstitial pulmonary edema. Patient was admitted to the hospital service with consults to [facility], cardiology and nephrology s/p cardiac arrest, UTI, JAMEY, lactic acidosis and hypotension. 09/22: Patient was started on a fentanyl drip and propofol drip was increased. At the time of my examination patient is on CMV tidal and 450, rate 20, PEEP 6 and FiO2 25%. Patient had a T-max of 101.9 overnight. Today we removed Park catheter and femoral CVL. Plan to obtain PICC/PIV. Started TF today. 09/23: CT head obtained yesterday shows diffuse cerebral edema and a new suspected developing infarct in the right occipital region. Patient has worsening renal function today and hyperphosphatemia. The time of my examination patient was on CMV tidal 450, rate 20, PEEP 625% FiO2 and sedated on fentanyl at 2 mcg. [facility] to update family on the findings. CVA work-up ordered. Renal function worsened today. 09/24: Patient has hyponatremia, hypochloremia, metabolic acidosis, slightly improved renal function. [facility] discussion with family today regarding prognosis. Remains sedated on fentanyl CMV TV 450, R 20, PEEP 6, FiO2 25%. Park was replaced for retention. 09/25: Mr. Avelar unfortunately remains unresponsive no pupillary reflex appreciated. Still with fever. Start empiric antibiotics and obtain cultures. Although fever could be central. Continue ventilatory support. MRI is concerning for anoxic encephalopathy with global edema. Patient with severe hypernatremia. Will obtain neurosurgery evaluation and also ID evaluation. Free water has been started by nephrology. Cardiology input appreciated. 09/26. 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 ID input appreciated likely underlying sepsis. Antibiotics as recommended source felt to be secondary to UTI as chest x-ray is without evidence of consolidation. Repeat chest x-ray and urine analysis is pending work cultures are being followed. MRSA PCR is also pending. Patient not on vancomycin and cefepime renally adjusted. I had extensive discussion with the daughter and the father yesterday. Later in the day the patient was made a DNR. Advance care planning time 35 minutes 09/27: Antibiotics changes per ID. Vancomycin discontinued started on linezolid. Continue current management. Patient unfortunately still with profound encephalopathy. Monitor cultures. 09/28: Worsening Hypernatremia 161, Very poor prognosis, Pt with persistent hypernatremia, per neursurgery note no ICP, cont gentle D5W, can be increased by ICU team if needed PER Nephrogy Continue free water 300 ml via orogastric tube q 4 hrs for hypernatremia. Obtain NEUROLOGY EVAL, Family made aware of clinical status. EEG and Neurology consultation for prognostication 09/29: Worsening sodium level, Nephrology monitoring. fluid adjusted by Neph rology. Patient off sedation, fever persists despite antibitotics, awaiting family decision on hospice. Nurology evaluating 09/30: Despite antibiotics fever still persist. Sodium still elevated despite being on fluid replacement with free water. This all points to central catastrophic event as reflected by neurosurgery. We will continue current management while awaiting family decision. Unfortunate case for young man status. Will check a.m. labs. Will obtain CBC in a.m. Continue pressure wound prevention techniques per SR[facility] protocol 10/01: Sodium improving with adjusted fluids. Continue supportive care. 10/02: D5 drip and hydralazine discontinued. Patient's hypernatremia improved to 148. EEG was canceled per [facility]. Patient was on a CPAP trial at the time examination of 02/21. 10/03: [facility] spoke to patient's family today, will obtain an ABG for possible extubation today. Patient has hypernatremia, hyperchloremia, metabolic acidosis and slightly improved BUN/creatinine on a.m. labs. Family to visit today. Hospitalist Physical - Constitutional Vitals: Temp Pulse Resp BP Pulse Ox 99.4 F 78 15 90/55 94 10/03/20 12:00 10/03/20 13:30 10/03/20 13:30 10/03/20 13:30 10/03/20 13:00 General appearance: Present: no acute distress, other (Unresponsive, on the vent) - EENT ENT: poor dentition - Neck Neck: Present: normal ROM - Respiratory Respiratory effort: normal Respiratory: bilateral: diminished - Cardiovascular Rhythm: regular Heart Sounds: Present: S1 & S2. Absent: systolic murmur, diastolic murmur - Extremities Extremities: no ischemia, pulses intact, pulses symmetrical, No edema, normal temperature, normal color Peripheral Pulses: within normal limits - Abdominal General gastrointestinal: soft, non-tender, normal bowel sounds - Integumentary Integumentary: Present: warm, dry - Psychiatric Psychiatric: other (not interactive) - Neurologic Neurologic: no CNII-XII intact, no moves all extremities, other (unresponsive to painful stimuli) - Allied Health Allied health notes reviewed: nursing, RT, social work HEART Score - HEART Score Troponin: Troponin T 1.880 ng/mL (0.00-0.029) H* D 09/21/20 04:34 Results - Labs CBC & Chem 7: 10/03/20 05:22 10/03/20 05:22 Labs: Laboratory Last Values WBC 8.7 K/mm3 (4.5-11.0) 10/03/20 05:22 RBC 3.52 M/mm3 (3.65-5.03) L 10/03/20 05:22 Hgb 11.0 gm/dl (11.8-15.2) L 10/03/20 05:22 Hct 32.5 % (35.5-45.6) L 10/03/20 05:22 MCV 92 fl (84-94) 10/03/20 05:22 MCH 31 pg (28-32) 10/03/20 05:22 MCHC 34 % (32-34) 10/03/20 05:22 RDW 15.1 % (13.2-15.2) 10/03/20 05: Plt Count 121 K/mm3 (140-440) L 10/03/20 05:22 Lymph % (Auto) 6.6 % (13.4-35.0) L 09/28/20 04:29 [place] % (Auto) 6.5 % (0.0-7.3) 09/28/20 04: Eos % (Auto) 0.1 % (0.0-4.3) 09/28/20 04: Baso % (Auto) 0.3 % (0.0-1.8) 09/28/20 04: Lymph # (Auto) 1.1 K/mm3 (1.2-5.4) L 09/28/20 04: [place] # (Auto) 1.1 K/mm3 (0.0-0.8) H 09/28/20 04: Eos # (Auto) 0.0 K/mm3 (0.0-0.4) 09/28/20 04: Baso # (Auto) 0.0 K/mm3 (0.0-0.1) 09/28/20 04:29 Add Manual Diff Complete 09/20/20 23:02 Total Counted 100 09/20/20 23:02 Seg Neutrophils % 86.5 % (40.0-70.0) H 09/28/20 04:29 Seg Neuts % (Manual) 34.0 % (40.0-70.0) L 09/20/20 23:02 Lymphocytes % (Manual) 57.0 % (13.4-35.0) H 09/20/20 23:02 Monocytes % (Manual) 6.0 % (0.0-7.3) 09/20/20 23:02 Eosinophils % (Manual) 2.0 % (0.0-4.3) 09/20/20 23:02 Basophils % (Manual) 1.0 % (0.0-1.8) 09/20/20 23:02 Nucleated RBC % Not Reportable 09/20/20 23:02 Seg Neutrophils # 14.4 K/mm3 (1.8-7.7) H 09/28/20 04:29 Seg Neutrophils # Man 1.9 K/mm3 (1.8-7.7) 09/20/20 23:02 Band Neutrophils # 0.0 K/mm3 09/20/20 23:02 Lymphocytes # (Manual) 3.2 K/mm3 (1.2-5.4) 09/20/20 23:02 Abs React Lymphs (Man) 0.0 K/mm3 09/20/20 23:02 Monocytes # (Manual) 0.3 K/mm3 (0.0-0.8) 09/20/20 23:02 Eosinophils # (Manual) 0.1 K/mm3 (0.0-0.4) 09/20/20 23:02 Basophils # (Manual) 0.1 K/mm3 (0.0-0.1) 09/20/20 23:02 Metamyelocytes # 0.0 K/mm3 09/20/20 23:02 Myelocytes # 0.0 K/mm3 09/20/20 23:02 Promyelocytes # 0.0 K/mm3 09/20/20 23:02 Blast Cells # 0.0 K/mm3 09/20/20 23:02 WBC Morphology Not Reportable 09/20/20 23:02 Hypersegmented Neuts Not Reportable 09/20/20 23:02 Hyposegmented Neuts Not Reportable 09/20/20 23:02 Hypogranular Neuts Not Reportable 09/20/20 23:02 Smudge Cells Not Reportable 09/20/20 23:02 Toxic Granulation Not Reportable 09/20/20 23:02 Toxic Vacuolation Not Reportable 09/20/20 23:02 Dohle Bodies Not Reportable 09/20/20 23:02 Pelger-Huet Anomaly Not Reportable 09/20/20 23:02 Santosh Rods Not Reportable 09/20/20 23:02 Platelet Estimate Not Reportable 09/20/20 23:02 Clumped Platelets Not Reportable 09/20/20 23:02 Plt Clumps, EDTA Not Reportable 09/20/20 23:02 Large Platelets Not Reportable 09/20/20 23:02 Giant Platelets Not Reportable 09/20/20 23:02 Platelet Satelliting Not Reportable 09/20/20 23:02 Plt Morphology Comment Not Reportable 09/20/20 23:02 RBC Morphology Normal 09/20/20 23:02 Dimorphic RBCs Not Reportable 09/20/20 23:02 Polychromasia Not Reportable 09/20/20 23:02 Hypochromasia Not Reportable 09/20/20 23:02 Poikilocytosis Not Reportable 09/20/20 23:02 Anisocytosis Not Reportable 09/20/20 23:02 Microcytosis Not Reportable 09/20/20 23:02 Macrocytosis Not Reportable 09/20/20 23:02 Spherocytes Not Reportable 09/20/20 23:02 Pappenheimer Bodies Not Reportable 09/20/20 23:02 Sickle Cells Not Reportable 09/20/20 23:02 Target Cells Not Reportable 09/20/20 23:02 Tear Drop Cells Not Reportable 09/20/20 23:02 Ovalocytes Not Reportable 09/20/20 23:02 Helmet Cells Not Reportable 09/20/20 23:02 Zurita-Doyline Bodies Not Reportable 09/20/20 23:02 [place] Rings Not Reportable 09/20/20 23:02 C[place]line Cells Not Reportable 09/20/20 23:02 Bite Cells Not Reportable 09/20/20 23:02 Crenated Cell Not Reportable 09/20/20 23:02 Elliptocytes Not Reportable 09/20/20 23:02 Acanthocytes (Spur) Not Reportable 09/20/20 23:02 Rouleaux Not Reportable 09/20/20 23:02 Hemoglobin C Crystals Not Reportable 09/20/20 23:02 Schistocytes Not Reportable 09/20/20 23:02 Malaria parasites Not Reportable 09/20/20 23:02 Eduardo Bodies Not Reportable 09/20/20 23:02 Hem Pathologist Commnt No 09/20/20 23:02 PT 15.5 Sec. (12.2-14.9) H 09/22/20 08:26 INR 1.25 (0.87-1.13) H 09/22/20 08:26 APTT 30.6 Sec. (24.2-36.6) 09/21/20 10:08 ABG pH 7.425 (7.320-7.450) 10/03/20 11:25 POC ABG pCO2 28.7 mmHg (32.0-48.0) L 10/03/20 11:25 ABG pCO2 40.5 mm Hg 09/21/20 02:15 POC ABG pO2 91.3 mmHg (83-108) 10/03/20 11:25 ABG pO2 244.1 mm Hg (80.0-90.0) H 09/21/20 02:15 POC ABG HCO3 18.4 10/03/20 11:25 ABG HCO3 17.7 mmol/L (20.0-26.0) L 09/21/20 02:15 ABG O2 Saturation 96.8 (0-100) 10/03/20 11:25 ABG O2 Content 24.2 (0.0-44) 09/21/20 02:15 POC ABG Base Excess -4.9 10/03/20 11:25 ABG Base Excess -8.8 mmol/L (-2.0-3.0) L 09/21/20 02:15 ABG Hemoglobin 10.8 (12.0-17.5) L 10/03/20 11:25 ABG Oxyhemoglobin 96.2 (94-98) 10/03/20 11:25 ABG Carboxyhemoglobin 1.3 % (0.0-5.0) 09/21/20 02:15 ABG Methemoglobin 0.3 (0.0-1.5) 10/03/20 11:25 ABG Sodium 147.0 mmol/L (136.0-145.0) H 10/03/20 11:25 ABG Potassium 3.2 mmol/L (3.40-4.50) L 10/03/20 11:25 ABG Chloride 118.0 mmol/L (98-107) H 10/03/20 11:25 ABG Glucose 139 mg/dL (65-95) H 10/03/20 11:25 Oxyhemoglobin 97.4 % (95.0-99.0) 09/21/20 02:15 Carboxyhemoglobin 0.3 (0.5-1.5) L 10/03/20 11:25 FiO2 21 % 09/21/20 02:15 FiO2 % 35.0 10/03/20 11:25 Sodium 147 mmol/L (137-145) H 10/03/20 05:22 Potassium 3.6 mmol/L (3.6-5.0) 10/03/20 05:22 Chloride 113.4 mmol/L (98-107) H 10/03/20 05:22 Carbon Dioxide 20 mmol/L (22-30) L 10/03/20 05:22 Anion Gap 17 mmol/L 10/03/20 05:22 BUN 70 mg/dL (9-20) H 10/03/20 05:22 Creatinine 2.0 mg/dL (0.8-1.3) H 10/03/20 05:22 Estimated GFR 43 ml/min 10/03/20 05:22 BUN/Creatinine Ratio 35 % 10/03/20 05:22 Glucose 125 mg/dL (75-100) H 10/03/20 05:22 POC Glucose 115 mg/dL (70-105) H 10/03/20 11:44 Lactic Acid 1.00 mmol/L (0.7-2.0) 09/24/20 04:00 Calcium 8.6 mg/dL (8.4-10.2) 10/03/20 05:22 Phosphorus 2.50 mg/dL (2.5-4.5) D 09/27/20 04:40 Magnesium 2.30 mg/dL (1.7-2.3) 10/01/20 13:20 Total Bilirubin 0.30 mg/dL (0.1-1.2) 09/20/20 23:02 AST 59 units/L (5-40) H 09/20/20 23:02 ALT 30 units/L (7-56) 09/20/20 23:02 Alkaline Phosphatase 88 units/L (35-129) 09/20/20 23:02 Total Creatine Kinase 3606 units/L (55-170) H 09/21/20 15:54 Troponin T 1.880 ng/mL (0.00-0.029) H* D 09/21/20 04:34 Total Protein 7.0 g/dL (6.3-8.2) 09/20/20 23:02 Albumin 4.1 g/dL (3.9-5) 09/20/20 23:02 Albumin/Globulin Ratio 1.4 % 09/20/20 23:02 Triglycerides 43 mg/dL (2-149) 09/21/20 02:01 Cholesterol 152 mg/dL (50-199) 09/21/20 02:01 LDL Cholesterol Direct 92 mg/dL (50-130) 09/21/20 02:01 HDL Cholesterol 60 mg/dL (40-59) H 09/21/20 02:01 Cholesterol/HDL Ratio 2.53 % 09/21/20 02:01 Arterial Blood Glucose 139 mg/dL (65-95) H 10/03/20 11:25 Arterial Blood Ionized Calcium 4.9 mg/dL (4.6-5.3) 10/03/20 11:25 Urine Color Yellow (Yellow) 09/26/20 13:38 Urine Turbidity Turbid (Clear) 09/26/20 13:38 Urine pH 5.0 (5.0-7.0) 09/26/20 13:38 Ur Specific [place] 1.018 (1.003-1.030) 09/26/20 13:38 Urine Protein 100 mg/dl mg/dL (Negative) 09/26/20 13:38 Urine Glucose (UA) Neg mg/dL (Negative) 09/26/20 13:38 Urine Ketones Neg mg/dL (Negative) 09/26/20 13:38 Urine Blood Mod (Negative) 09/26/20 13:38 Urine Nitrite Neg (Negative) 09/26/20 13:38 Urine Bilirubin Neg (Negative) 09/26/20 13:38 Urine Urobilinogen < 2.0 mg/dL (<2.0) 09/26/20 13:38 Ur Leukocyte Esterase Neg (Negative) 09/26/20 13:38 Urine WBC (Auto) 8.0 /HPF (0.0-6.0) H 09/26/20 13:38 Urine RBC (Auto) 10.0 /HPF (0.0-6.0) 09/26/20 13:38 U Epithel Cells (Auto) 2.0 /HPF (0-13.0) 09/26/20 13:38 Urine Bacteria (Auto) 2+ /HPF (Negative) 09/21/20 14:27 Uric Acid Crystals 3+ 09/26/20 13:38 Urine Mucus 1+ /HPF 09/26/20 13:38 Urine Yeast (Budding) 2+ /HPF 09/20/20 23:35 Urine Sperm Few /HPF (WOUND CARE PHYSICIAN) 09/26/20 13:38 Urine Creatinine 60.4 mg/dL (0.1-20.0) H 09/21/20 14:27 Urine Sodium 108 mmol/L 09/21/20 14:27 Urine Urea Nitrogen 305 09/21/20 14:27 Nasal Screen MRSA (PCR) Positive (Negative) 09/25/20 17:55 Random Vancomycin 11.5 ug/mL (0-40.0) 10/02/20 04:47 Urine Opiates Screen Presumptive negative 09/20/20 Unknown Urine Methadone Screen Presumptive negative 09/20/20 Unknown Ur Barbiturates Screen Presumptive negative 09/20/20 Unknown Ur Phencyclidine Scrn Presumptive negative 09/20/20 Unknown Ur Amphetamines Screen Presumptive negative 09/20/20 Unknown U Benzodiazepines Scrn Presumptive negative 09/20/20 Unknown Urine Cocaine Screen Presumptive negative 09/20/20 Unknown U Marijuana (THC) Screen Presumptive positive 09/20/20 Unknown Drugs of Abuse Note Disclamer 09/20/20 Unknown Coronavirus (PCR) Negative (Negative) 09/21/20 10:13 Park/IV: Voiding Method Indwelling Catheter Active Medications - Current Medications Current Medications: Generic Name Dose Route Start Last Admin Trade Name Freq PRN Reason Stop Dose Admin Acetaminophen 650 mg 09/21/20 15:51 10/03/20 02:12 Acetaminophen 325 Mg/10.15 Ml Oral Liqd Unit Dose FEEDTUBE 650 mg Q6H PRN Administration Pain, Mild (1-3) Lipase/Protease/Amylase 1 each 09/25/20 14:22 Lipase 10,500/Protease 25,000/Amylase 43,750 (Units) Dr Greer FEEDTUBE PRN PRN For Clogged Feeding Tube Aspirin 325 mg 09/21/20 16:00 10/03/20 09:25 Aspirin 325 Mg Tab PO 325 mg QDAY PATSY Administration Atorvastatin Calcium 40 mg 09/23/20 22:00 10/02/20 21:57 Atorvastatin 40 Mg Tab PO 40 mg QHS PATSY Administration Dextrose 0 ml 09/30/20 05:37 09/30/20 05:57 Dextrose 50% In Water (25gm) 50 Ml Syringe IV 50 ml Q30MIN PRN Administration Hypoglycemia Protocol Famotidine 20 mg 09/25/20 10:00 10/03/20 09:26 Famotidine 20 Mg Tab PO 20 mg DAILY PATSY Administration Heparin Sodium (Porcine) 5,000 unit 09/21/20 22:00 10/03/20 09:25 Heparin 5,000 Unit/1 Ml Vial SUB-Q 5,000 unit Q12HR PATSY Administration Hydrophilic Ointment 1 applic 09/20/20 22:59 Lip Therapy Vaseline TP Q2HR PRN Dry Lips Norepinephrine 4 mg in 250 mls @ 7.5 mls/hr 09/21/20 05:00 Levophed Drip 4 Mg/Ns 250 Ml IV TITR PATSY Protocol 2 MCG/MIN Fentanyl Citrate 2,000 mcg in 100 mls @ 5.105 mls/hr 09/22/20 11:30 09/25/20 18:17 Fentanyl Drip Premix IV 0 mcg/kg/hr TITR PATSY 0 mls/hr Titration Protocol 1 MCG/KG/HR Metoprolol Tartrate 50 mg 09/27/20 18:00 10/03/20 11:04 Metoprolol Tartrate 50 Mg Tab PO 50 mg Q6HR PATSY Administration Multi-Ingred Cream/Lotion/Oil/Oint 1 applic 09/20/20 22:59 Mineral Oil/Petrolatum, White Ophth Oint 3.5 Gm OU Q4HR PRN Dry Eye(s) Ondansetron HCl 4 mg 09/21/20 01:24 Ondansetron 4 Mg/2 Ml Inj IV Q8H PRN Nausea And Vomiting Simple Syrup 15 ml 09/25/20 14:22 Simple Syrup 15 Ml FEEDTUBE PRN PRN Hypoglycemia Simple Syrup 30 ml 09/25/20 14:22 Simple Syrup 15 Ml FEEDTUBE PRN PRN Hypoglycemia Sodium Bicarbonate 325 mg 09/25/20 14:22 Sodium Bicarbonate 325 Mg Tab FEEDTUBE PRN PRN For Clogged Feeding Tube Sodium Chloride 10 ml 09/21/20 10:00 10/03/20 09:26 Sodium Chloride 0.9% 10 Ml Flush Syringe IV Not Given BID PATSY Sodium Chloride 10 ml 09/21/20 01:24 09/24/20 18:21 Sodium Chloride 0.9% 10 Ml Flush Syringe IV 10 ml PRN PRN Administration LINE FLUSH Nutrition/Malnutrition Assess - Dietary Evaluation Nutrition/Malnutrition Findings: Nutrition Notes Start: 09/21/20 08:17 Freq: Status: Active Protocol: Document 10/03/20 12:17 ANGELA (Rec: 10/03/20 12:21 ANGELA [id number]) Co-Sign 10/03/20 12:17 SALMA Nutrition Notes Initial or Follow up Reassessment Current Diagnosis Acute Kidney Injury, Hypertension,Heart Failure, Respiratory Failure Other Pertinent Diagnosis s/p cardiopulmonary arrest, UTI, anoxic encephalopathy with global edema Current Diet TF - Vital AF 1.2 at 65ml/hr Labs/Tests Na 147 BUN 70 Cr 2.0 Pertinent Medications Reviewed Height 6 ft Weight 102.1 kg [place] Body Weight (kg) 80.90 BMI 30.5 Weight Status Obese Subjective/Other Information F/U for TF tolerance and Na labs. Pt continues tolerating TF at goal rate with 300ml flush q4h. Na levels improving . Per chart, pt remains intubated and has been put on AND/DNR. Percent of energy/protein needs met: 100%/72% Burn Absent Trauma Absent GI Symptoms None Current % PO Negligible Minimum of two criteria No physical signs of malnutrition #1 Nutrition Diagnosis Inadequate oral intake Diagnosis Progress(for reassessment Continues documentation) Is patient on ventilator? Yes Is Patient Ambulatory and/or Out of Bed No REE-(Outing-St. or-confined to bed) 2318.184 Kcal/Kg value to use for calculation 18 Approximate Energy Requirements Using 1838 kcal/Kg Calculation Used for Recommendations Kcal/kg Additional Notes Pro needs >2g/kg IBW: >162g/ day Fluid needs 1ml/kcal Nutrition Intervention Change Diet Order: Continue TF Nutrition Support: Vital AF 1.2 at 65ml/hr with 300ml water flush q4h until hypernatremia resolves. Once hypernatremia resolves, continue free water flush of 100 ml q4h. [ End ] [ End ] Kcal 1,872 Protein (gm) 117 Fluid (mL) 1,265 Goal #1 TF tolerance Goal #2 TF to meet at least 75% of estimated energy and protein needs. Anticipated Discharge Needs: Unable to determine at the time. Follow-Up By: 10/06/20 Additional Comments F/U for TF tolerance and water flush
--- NOTE | 2020-10-03 15:46 | Progress Note ---
Assessment and Plan Cultures: SARS-CoV-2 PCR negative. Sputum culture 09/20/2020 upper respiratory misha. Urine culture 09/20/2020 10-100,000 mixed colonies. Blood culture 09/21/2020 no growth today. Blood culture 09/25/2020 no growth today Tracheal aspirate culture 09/25/2020 MRSA MRSA PCR positive Tracheal aspirate culture 09/26/2020 MRSA Assessment: 50-year-old male with history of hypertension, admitted on 09/20/2020 secondary to syncope followed up by outside cardiac arrest: #SIRS rule out sepsis: fever resolving likely due to MRSA VAP; likely secondary to gievxpf-yl-aji-hospital cardiac arrest +/-UTI. Chest x-ray without evidence of consolidation. Blood culture so far negative. #MRSA VAP: Tracheal aspirate grew MRSA x2. Was on linezolid for 3 days. Platelets dropping will switched to vancomycin. #UTI: Urine culture grew mixed bacteria. Completed Rocephin for 5 days. #Czhmgrf-bq-ynn-hospital cardiac arrest: per cards #Acute encephalopathy: Likely secondary to anoxic brain injury. Brain MRI shows diffuse cerebral cortical restricted diffuse edema consistent with anoxic brain. #Cardiomyopathy: Transthoracic echo shows severely dilated left ventricle, the ventricle systolic function severely decreased, borderline concentric left ventricle hypertrophy, severe global hypokinesis of the left ventricle, LVEF 10 to 15%, mild MR. Cardiology on board. #JAMEY: Better #Transaminitis: Likely due to sepsis. #Thrombocytopenia: continue to worse Recommendations -Continue vancomycin renally adjusted D7 of 10 for MRSA VAP -Monitor platelets -Probably some level of central fevers given anoxic brain injury. Guarded prognosis Will follow. Caroline Herrera MD [facility] ([facility] O: [phone] F: [phone] Subjective Date of service: 10/03/20 Principal diagnosis: Acute respiratory failure Interval history: Febrile overnight with a white count of 8.7. Objective - Exam Narrative Exam: General appearance: Intubated unresponsive eyes opening some tracking Eyes: anicteric sclerae, moist conjunctivae; no lid-lag; PERRLA HENT: Normocephalic, Atraumatic; normal external ears, nares open, oropharynx endotracheal tube in place creamy secretions Neck: supple, tracheal midline, no JVD Lungs: Bilateral rhonchi CV: RRR no murmur Abdomen: Soft, non-tender; no masses or hepatosplenomegaly Extremities: no edema, no cyanosis Skin: No rash. Psych: Unresponsive Neuro: somnolent eye opening - Constitutional Vitals: Vital Signs Temp Pulse Resp BP Pulse Ox 99.4 F 82 14 100/55 97 10/03/20 12:00 10/03/20 15:00 10/03/20 14:00 10/03/20 15:00 10/03/20 15:00 Temperature -Last 24 Hours Temperature 99.4 F Temperature 99.9 F Temperature 98.6 F Temperature 100.5 F Temperature 100.9 F Temperature 99.9 F - Labs CBC & Chem 7: 10/03/20 05:22 10/03/20 05:22 Labs: Abnormal lab results 10/02/20 10/02/20 10/02/20 Range/Units 15:55 17:46 23:42 RBC (3.65-5.03) M/mm3 Hgb (11.8-15.2) gm/dl Hct (35.5-45.6) % Plt Count (140-440) K/mm3 POC ABG pCO2 (32.0-48.0) mmHg ABG Hemoglobin (12.0-17.5) ABG Sodium (136.0-145.0) mmol/L ABG Potassium (3.40-4.50) mmol/L ABG Chloride (98-107) mmol/L ABG Glucose (65-95) mg/dL Carboxyhemoglobin (0.5-1.5) Sodium 146 H (137-145) mmol/L Chloride (98-107) mmol/L Carbon Dioxide (22-30) mmol/L BUN (9-20) mg/dL Creatinine (0.8-1.3) mg/dL Glucose (75-100) mg/dL POC Glucose 126 H 130 H (70-105) mg/dL Arterial Blood Glucose (65-95) mg/dL 10/03/20 10/03/20 10/03/20 Range/Units 05:22 05:22 06:07 RBC 3.52 L (3.65-5.03) M/mm3 Hgb 11.0 L (11.8-15.2) gm/dl Hct 32.5 L (35.5-45.6) % Plt Count 121 L (140-440) K/mm3 POC ABG pCO2 (32.0-48.0) mmHg ABG Hemoglobin (12.0-17.5) ABG Sodium (136.0-145.0) mmol/L ABG Potassium (3.40-4.50) mmol/L ABG Chloride (98-107) mmol/L ABG Glucose (65-95) mg/dL Carboxyhemoglobin (0.5-1.5) Sodium 147 H (137-145) mmol/L Chloride 113.4 H (98-107) mmol/L Carbon Dioxide 20 L (22-30) mmol/L BUN 70 H (9-20) mg/dL Creatinine 2.0 H (0.8-1.3) mg/dL Glucose 125 H (75-100) mg/dL POC Glucose 122 H (70-105) mg/dL Arterial Blood Glucose (65-95) mg/dL 10/03/20 10/03/20 Range/Units 11:25 11:44 RBC (3.65-5.03) M/mm3 Hgb (11.8-15.2) gm/dl Hct (35.5-45.6) % Plt Count (140-440) K/mm3 POC ABG pCO2 28.7 L (32.0-48.0) mmHg ABG Hemoglobin 10.8 L (12.0-17.5) ABG Sodium 147.0 H (136.0-145.0) mmol/L ABG Potassium 3.2 L (3.40-4.50) mmol/L ABG Chloride 118.0 H (98-107) mmol/L ABG Glucose 139 H (65-95) mg/dL Carboxyhemoglobin 0.3 L (0.5-1.5) Sodium (137-145) mmol/L Chloride (98-107) mmol/L Carbon Dioxide (22-30) mmol/L BUN (9-20) mg/dL Creatinine (0.8-1.3) mg/dL Glucose (75-100) mg/dL POC Glucose 115 H (70-105) mg/dL Arterial Blood Glucose 139 H (65-95) mg/dL
[2020-10-04] MEDS: METOPROLOL TARTRATE 50 MG TAB PO SCH ×3 (00:56→11:07)
[2020-10-04 06:27] LABS: Hematocrit 30.2 % (35.5-45.6); Hemoglobin 10.2 gm/dl (11.8-15.2); Mean Corpuscular HGB Conc 34 % (32-34); Mean Corpuscular Volume 93 fl (84-94); Platelet Count 133 K/mm3 (140-440); Red Blood Count 3.27 M/mm3 (3.65-5.03); Red Cell Distribution Width 14.7 % (13.2-15.2)
[2020-10-04 06:59] LABS: Calcium 8.7 mg/dL (8.4-10.2)
[2020-10-04] MEDS ORDERED: VANCOMYCIN PHARMACY TO DOSE IV SCH (08:00)
[2020-10-04] MEDS ORDERED: DEXTROSE 5% IN WATER 1,000 ML IV SCH (09:00)
[2020-10-04] MEDS: HEPARIN 5,000 UNIT/1 ML VIAL SUB-Q SCH (09:50)
[2020-10-04] MEDS: FAMOTIDINE 20 MG TAB PO SCH (09:50)
[2020-10-04] MEDS: ASPIRIN 325 MG TAB PO SCH (09:50)
[2020-10-04] MEDS ORDERED: VANCOMYCIN 1,500 MG in SODIUM CHLORIDE 0.9% 500 ML 500 ML IV SCH (10:00)
--- NOTE | 2020-10-04 11:09 | Event Note ---
Date: 10/04/20 Long discussion with daughter and CM over the phone. There are several family members who wish to pay respects but the hospital and especially the ICU are limited in visitation secondary to the pandemic. The patient meets all criteria for extubation except appropriate mental status. The family was going to withdraw on yesterday but changed their minds secondary to family wanting to visit. I explained to the daughter this am, that I cannot guarantee anything but I do not feel that the patient would pass away immediately from respiratory compromise. I have suggested extubation and transfer to the floor, that way the patient's 13 y/o daughter could visit and they have longer visiting hours. I will ask CM to speak with admin about possibly making some exceptions for visitation. The daughter would like for the patient to come home with her on hospice but he is unfunded and she would not be able to afford transportation. She (daughter) is in agreement with the above plan and understands the possible consequences. Will extubate now. Will manage secretions aggressively.
--- NOTE | 2020-10-04 11:48 | Progress Note ---
Assessment and Plan - Patient Problems (1) Cardiopulmonary arrest Current Visit: Yes Status: Acute Plan to address problem: An echocardiogram demonstrates severe left ventricular dysfunction, ejection fraction 10-15%. Patient presented with out of hospital cardiopulmonary arrest, underlying severe dilated cardiomyopathy, severe anoxic encephalopathy, currently on supportive management. Subjective Date of service: 10/04/20 Principal diagnosis: Acute respiratory failure Interval history: No interval cardiac changes. Currently, he is stable sinus rhythm on telemetry. Objective Vital Signs Temp Pulse Pulse Resp BP Pulse Ox 10/04/20 11:25 91 10/04/20 11:07 78 96/61 10/04/20 11:00 78 23 96/61 96 10/04/20 10:31 79 25 H 105/65 95 10/04/20 10:00 84 105/65 94 10/04/20 09:31 86 104/67 93 10/04/20 09:00 85 104/67 94 10/04/20 08:31 79 115/68 98 10/04/20 08:29 79 115/68 98 10/04/20 08:00 82 82 28 H 115/68 94 10/04/20 07:31 80 107/59 96 10/04/20 07:24 98.5 F 10/04/20 07:00 77 26 H 107/59 97 10/04/20 06:31 76 26 H 99/51 96 10/04/20 06:00 74 26 H 99/51 96 10/04/20 05:58 74 104/60 10/04/20 05:31 74 26 H 104/60 96 10/04/20 05:00 77 26 H 104/60 97 10/04/20 04:31 82 27 H 119/69 96 10/04/20 04:00 98.4 F 90 77 29 H 119/69 94 10/04/20 03:31 88 105/61 95 10/04/20 03:00 91 H 105/61 95 10/04/20 02:31 91 H 107/65 94 10/04/20 02:00 87 107/65 95 10/04/20 01:30 89 105/62 95 10/04/20 01:00 86 97/64 95 10/04/20 00:56 85 97/64 10/04/20 00:30 85 97/64 93 10/04/20 00:00 99.7 F H 85 85 29 H 97/64 95 10/03/20 23:55 84 101/62 96 10/03/20 23:31 82 101/62 96 10/03/20 23:00 82 101/62 96 10/03/20 22:31 82 89/62 96 1821 22:00 86 104/65 97 18 21:31 89 89/62 95 1821 21:00 87 89/62 95 10/03/20 20:51 84 91/56 96 10/03/20 20:31 86 91/56 93 10/03/20 20:00 99.5 F 84 84 29 H 91/56 94 10/03/20 19:30 83 100/60 94 10/03/20 19:00 82 100/60 96 10/03/20 18:31 80 106/67 96 10/03/20 18:00 90 106/67 97 10/03/20 17:52 88 93/57 10/03/20 17:31 87 96/56 96 10/03/20 17:00 87 93/57 96 10/03/20 16:31 86 96/56 95 10/03/20 16:00 83 87 29 H 96/56 96 10/03/20 15:51 86 107/64 94 10/03/20 15:31 84 100/55 96 10/03/20 15:00 82 100/55 97 10/03/20 14:31 82 109/63 95 10/03/20 14:00 78 14 75/46 94 10/03/20 13:30 78 15 90/55 10/03/20 13:00 77 14 85/51 94 10/03/20 12:30 78 15 86/55 10/03/20 12:00 99.4 F 89 77 28 H 106/74 98 - Physical Examination General: Other (intubated, unresponsive) HEENT: Positive: Other (Pupils fixed) Cardiac: Positive: Reg Rate and Rhythm - Labs and Meds CBC 10/04/20 Range/Units 05:44 WBC 7.6 (4.5-11.0) K/mm3 RBC 3.27 L (3.65-5.03) M/mm3 Hgb 10.2 L (11.8-15.2) gm/dl Hct 30.2 L (35.5-45.6) % Plt Count 133 L (140-440) K/mm3 Comprehensive Metabolic Panel 10/03/20 10/03/20 10/04/20 Range/Units 15:40 23:19 05:44 Sodium 149 H 147 H 150 H (137-145) mmol/L Potassium 3.6 (3.6-5.0) mmol/L Chloride 117.2 H (98-107) mmol/L Carbon Dioxide 20 L (22-30) mmol/L BUN 74 H (9-20) mg/dL Creatinine 1.8 H (0.8-1.3) mg/dL Glucose 135 H (75-100) mg/dL Calcium 8.7 (8.4-10.2) mg/dL
--- NOTE | 2020-10-04 12:25 | Progress Note ---
Assessment and Plan Assessment and plan: This is a 50-year-old male with hypertension and heart failure admitted s/p cardiac arrest with JAMEY, UTI, lactic acidosis, hypotension. Sepsis S/p cardiac arrest Acute hypoxic respiratory failure Acute kidney injury with underlying ATN Cardiomyopathy left ejection fraction of 10 to 15% Acute toxic and anoxic metabolic encephalopathy Urinary tract infection Thrombocytopenia Acute cystitis Coagulopathic Hypernatremia MRSA VAP Hyperchloremia Metabolic acidosis Lactic acidosis Hypertension Transaminitis likely secondary to sepsis Hypertension -CCM, cardiology, nephrology consulted, appreciate recommendations -s/p vasopressor support with Levophed, phenyl epinephrine, epinephrine -COVID 19 pcr (-) -Fentayl gtt -TF -09/20 CXR shows cardiomegaly -09/21 echocardiogram shows severely dilated left ventricle, the ventricle systolic function severely decreased, borderline concentric left ventricle hypertrophy, severe global hypokinesis of the left ventricle, LVEF 10 to 15%, mild MR, trace TR, RVSP is normal at 12 mmHg, trace pericardial effusion. 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 However, there appears to be mild cerebral white matter disease as described without CT evidence of acute intracranial hemorrhage. -09/22 CT head shows loss of reyna to white differentiation diffusely likely due to diffuse cerebral edema, interval decrease in ventricular size diffusely likely due to compression without herniation identified, suspected developing infarct in right occipital region without hemorrhage -09/23 bilateral carotid ultrasound shows less than 50% diameter stenosis in Right ICA and Left ICA -09/25 MRI brain shows diffuse cerebral cortical restricted diffusion and edema indicative of diffuse cerebral edema likely due to global anoxic brain injury -09/25 MRA head shows diffuse cerebral cortical restricted diffusion and edema indicative of diffuse cerebral edema likely due to global anoxic brain injury -09/28 CXR shows right pulmonary opacities in the right upper lung. Unchanged -s/p Rocephin for 5 days -IV Vancomycin (Was on linezolid for 3 days. Platelets dropping; switched to vancomycin per ID), Plan total x 10 days; Last day of therapy 10/05 -Hemoglobin A1c, hepatic panel pending -intubated 09/21-extubated 10/04 -Trend CBC, BMP GI/DVT prophylaxis: PPI, heparin subcu, SCDs to bilateral lower extremities while in bed Disposition: ICU The high probability of a clinically significant, sudden or life threatening deterioration of the [multi] system(s) required my full and direct attention, intervention and personal management. The aggregate critical care time was [35] minutes. This time is in addition to time spent performing reported procedures but includes the following: [x] Data Review and interpretation [x] Patient assessment and monitoring of vital signs [x] Documentation [x] Medication orders and management History Interval history: This is a 50-year-old male with heart failure and hypertension who presents to the emergency department on 09/21 with cardiac arrest after syncopal episode about 45 minutes prior to arrival to the emergency department. Upon arrival to the emergency department patient was found to be hypotensive and subsequently started on pressors with significant improvement in his blood pressure. Work-up in the emergency department reveals lactic acidosis, initial troponin within normal limits however subsequent troponins were elevated, no obvious ischemic changes on EKG, UDS positive for marijuana, urinalysis significant for urinary tract infection, BUN/creatinine slightly elevated 26/21. CXR showed severe cardiomegaly with mild interstitial pulmonary edema. Patient was admitted to [facility] service with consults to CCM, cardiology and nephrology s/p cardiac arrest, UTI, JAMEY, lactic acidosis and hypotension. 09/22: Patient was started on a fentanyl drip and propofol drip was increased. At the time of my examination patient is on CMV tidal and 450, rate 20, PEEP 6 and FiO2 25%. Patient had a T-max of 101.9 overnight. Today we removed Park catheter and femoral CVL. Plan to obtain PICC/PIV. Started TF today. 09/23: CT head obtained yesterday shows diffuse cerebral edema and a new suspected developing infarct in the right occipital region. Patient has worsening renal function today and hyperphosphatemia. The time of my examination patient was on CMV tidal 450, rate 20, PEEP 625% FiO2 and sedated on fentanyl at 2 mcg. [facility] to update family on the findings. CVA work-up ordered. Renal function worsened today. 09/24: Patient has hyponatremia, hypochloremia, metabolic acidosis, slightly improved renal function. CCM discussion with family today regarding prognosis. Remains sedated on fentanyl CMV TV 450, R 20, PEEP 6, FiO2 25%. Park was replaced for retention. 09/25: Mr. Avelar unfortunately remains unresponsive no pupillary reflex appreciated. Still with fever. Start empiric antibiotics and obtain cultures. Although fever could be central. Continue ventilatory support. MRI is concerning for anoxic encephalopathy with global edema. Patient with severe hypernatremia. Will obtain neurosurgery evaluation and also ID evaluation. Free water has been started by nephrology. Cardiology input appreciated. 09/26. No indication for head CT at this time as renal is improving per research worker encyclopedia. ID input appreciated likely underlying sepsis. Antibiotics as recommended source felt to be secondary to UTI as chest x-ray is without evidence of consolidation. Repeat chest x-ray and urine analysis is pending work cultures are being followed. MRSA PCR is also pending. Patient not on vancomycin and cefepime renally adjusted. I had extensive discussion with the daughter and the father yesterday. Later in the day the patient was made a DNR. Advance care planning time 35 minutes 09/27: Antibiotics changes per ID. Vancomycin discontinued started on linezolid. Continue current management. Patient unfortunately still with profound encephalopathy. Monitor cultures. 09/28: Worsening Hypernatremia 161, Very poor prognosis, Pt with persistent h ypernatremia, per neursurgery note no ICP, cont gentle D5W, can be increased by ICU team if needed PER Nephrogy Continue free water 300 ml via orogastric tube q 4 hrs for hypernatremia. Obtain NEUROLOGY EVAL, Family made aware of clinical status. EEG and Neurology consultation for prognostication 09/29: Worsening sodium level, Nephrology monitoring. fluid adjusted by Nephrology. Patient off sedation, fever persists despite antibitotics, awaiting family decision on hospice. Nurology evaluating 09/30: Despite antibiotics fever still persist. Sodium still elevated despite being on fluid replacement with free water. This all points to central catastrophic event as reflected by neurosurgery. We will continue current management while awaiting family decision. Unfortunate case for young man s quique. Will check a.m. labs. Will obtain CBC in a.m. Continue pressure wound prevention techniques per [facility] protocol 10/01: Sodium improving with adjusted fluids. Continue supportive care. 10/02: D5 drip and hydralazine discontinued. Patient's hypernatremia improved to 148. EEG was canceled per [facility]. Patient was on a CPAP trial at the time examination of 02/21. 10/03: [facility] spoke to patient's family today, will obtain an ABG for possible extubation today. Patient has hypernatremia, hyperchloremia, metabolic acidosis and slightly improved BUN/creatinine on a.m. labs. Family to visit today. 10/04: Patient was extubated today per [facility] and will be transferred to floor. Patient has worsening hypernatremia and hyperkalemia with unchanged metabolic acidosis and slightly improved renal function studies today. We will start D5W@75 ml/hr. Hospitalist Physical - Constitutional Vitals: Temp Pulse Resp BP Pulse Ox 98.5 F 78 23 96/61 91 10/04/20 07:24 10/04/20 11:07 10/04/20 11:00 10/04/20 11:07 10/04/20 11:25 General appearance: Present: no acute distress, other (unresponsive to verbal or painful stimuli) - EENT Eyes: Present: PERRL - Neck Neck: Present: normal ROM - Respiratory Respiratory effort: normal Respiratory: bilateral: CTA - Cardiovascular Rhythm: regular Heart Sounds: Present: S1 & S2. Absent: systolic murmur, diastolic murmur - Extremities Extremities: no ischemia, pulses intact, pulses symmetrical, No edema, normal temperature, normal color Peripheral Pulses: within normal limits - Abdominal General gastrointestinal: soft, non-tender, non-distended, normal bowel sounds - Integumentary Integumentary: Present: warm, dry - Psychiatric Psychiatric: other (Unresponsive to verbal or tactile stimuli) - Neurologic Neurologic: other (S/p painful stimuli, weak cough/gag, pupils briskly reactive to light. Does not track/focus) - Allied Health Allied health notes reviewed: nursing, RT, social work HEART Score - HEART Score Troponin: Troponin T 1.880 ng/mL (0.00-0.029) H* D 09/21/20 04:34 Results - Labs CBC & Chem 7: 10/04/20 05:44 10/04/20 05:44 Labs: Laboratory Last Values WBC 7.6 K/mm3 (4.5-11.0) 10/04/20 05:44 RBC 3.27 M/mm3 (3.65-5.03) L 10/04/20 05:44 Hgb 10.2 gm/dl (11.8-15.2) L 10/04/20 05:44 Hct 30.2 % (35.5-45.6) L 10/04/20 05:44 MCV 93 fl (84-94) 10/04/20 05:44 MCH 31 pg (28-32) 10/04/20 05:44 MCHC 34 % (32-34) 10/04/20 05:44 RDW 14.7 % (13.2-15.2) 10/04/20 05:44 Plt Count 133 K/mm3 (140-440) L 10/04/20 05:44 Lymph % (Auto) 6.6 % (13.4-35.0) L 09/28/20 04:29 [place] % (Auto) 6.5 % (0.0-7.3) 09/28/20 04:29 Eos % (Auto) 0.1 % (0.0-4.3) 09/28/20 04:29 Baso % (Auto) 0.3 % (0.0-1.8) 09/28/20 04:29 Lymph # (Auto) 1.1 K/mm3 (1.2-5.4) L 09/28/20 04:29 [place] # (Auto) 1.1 K/mm3 (0.0-0.8) H 09/28/20 04:29 Eos # (Auto) 0.0 K/mm3 (0.0-0.4) 09/28/20 04:29 Baso # (Auto) 0.0 K/mm3 (0.0-0.1) 09/28/20 04:29 Add Manual Diff Complete 09/20/20 23:02 Total Counted 100 09/20/20 23:02 Seg Neutrophils % 86.5 % (40.0-70.0) H 09/28/20 04:29 Seg Neuts % (Manual) 34.0 % (40.0-70.0) L 09/20/20 23:02 Lymphocytes % (Manual) 57.0 % (13.4-35.0) H 09/20/20 23:02 Monocytes % (Manual) 6.0 % (0.0-7.3) 09/20/20 23:02 Eosinophils % (Manual) 2.0 % (0.0-4.3) 09/20/20 23:02 Basophils % (Manual) 1.0 % (0.0-1.8) 09/20/20 23:02 Nucleated RBC % Not Reportable 09/20/20 23:02 Seg Neutrophils # 14.4 K/mm3 (1.8-7.7) H 09/28/20 04:29 Seg Neutrophils # Man 1.9 K/mm3 (1.8-7.7) 09/20/20 23:02 Band Neutrophils # 0.0 K/mm3 09/20/20 23:02 Lymphocytes # (Manual) 3.2 K/mm3 (1.2-5.4) 09/20/20 23:02 Abs React Lymphs (Man) 0.0 K/mm3 09/20/20 23:02 Monocytes # (Manual) 0.3 K/mm3 (0.0-0.8) 09/20/20 23:02 Eosinophils # (Manual) 0.1 K/mm3 (0.0-0.4) 09/20/20 23:02 Basophils # (Manual) 0.1 K/mm3 (0.0-0.1) 09/20/20 23:02 Metamyelocytes # 0.0 K/mm3 09/20/20 23:02 Myelocytes # 0.0 K/mm3 09/20/20 23:02 Promyelocytes # 0.0 K/mm3 09/20/20 23:02 Blast Cells # 0.0 K/mm3 09/20/20 23:02 WBC Morphology Not Reportable 09/20/20 23:02 Hypersegmented Neuts Not Reportable 09/20/20 23:02 Hyposegmented Neuts Not Reportable 09/20/20 23:02 Hypogranular Neuts Not Reportable 09/20/20 23:02 Smudge Cells Not Reportable 09/20/20 23:02 Toxic Granulation Not Reportable 09/20/20 23:02 Toxic Vacuolation Not Reportable 09/20/20 23:02 Dohle Bodies Not Reportable 09/20/20 23:02 Pelger-Huet Anomaly Not Reportable 09/20/20 23:02 Santosh Rods Not Reportable 09/20/20 23:02 Platelet Estimate Not Reportable 09/20/20 23:02 Clumped Platelets Not Reportable 09/20/20 23:02 Plt Clumps, EDTA Not Reportable 09/20/20 23:02 Large Platelets Not Reportable 09/20/20 23:02 Giant Platelets Not Reportable 09/20/20 23:02 Platelet Satelliting Not Reportable 09/20/20 23:02 Plt Morphology Comment Not Reportable 09/20/20 23:02 RBC Morphology Normal 09/20/20 23:02 Dimorphic RBCs Not Reportable 09/20/20 23:02 Polychromasia Not Reportable 09/20/20 23:02 Hypochromasia Not Reportable 09/20/20 23:02 Poikilocytosis Not Reportable 09/20/20 23:02 Anisocytosis Not Reportable 09/20/20 23:02 Microcytosis Not Reportable 09/20/20 23:02 Macrocytosis Not Reportable 09/20/20 23:02 Spherocytes Not Reportable 09/20/20 23:02 Pappenheimer Bodies Not Reportable 09/20/20 23:02 Sickle Cells Not Reportable 09/20/20 23:02 Target Cells Not Reportable 09/20/20 23:02 Tear Drop Cells Not Reportable 09/20/20 23:02 Ovalocytes Not Reportable 09/20/20 23:02 Helmet Cells Not Reportable 09/20/20 23:02 [place] Bodies Not Reportable 09/20/20 23:02 Climax Rings Not Reportable 09/20/20 23:02 Forney Cells Not Reportable 09/20/20 23:02 Bite Cells Not Reportable 09/20/20 23:02 Crenated Cell Not Reportable 09/20/20 23:02 Elliptocytes Not Reportable 09/20/20 23:02 Acanthocytes (Spur) Not Reportable 09/20/20 23:02 Rouleaux Not Reportable 09/20/20 23:02 Hemoglobin C Crystals Not Reportable 09/20/20 23:02 Schistocytes Not Reportable 09/20/20 23:02 Malaria parasites Not Reportable 09/20/20 23:02 Eduardo Bodies Not Reportable 09/20/20 23:02 Hem Pathologist Commnt No 09/20/20 23:02 PT 15.5 Sec. (12.2-14.9) H 09/22/20 08:26 INR 1.25 (0.87-1.13) H 09/22/20 08:26 APTT 30.6 Sec. (24.2-36.6) 09/21/20 10:08 ABG pH 7.425 (7.320-7.450) 10/03/20 11:25 POC ABG pCO2 28.7 mmHg (32.0-48.0) L 10/03/20 11:25 ABG pCO2 40.5 mm Hg 09/21/20 02:15 POC ABG pO2 91.3 mmHg (83-108) 10/03/20 11:25 ABG pO2 244.1 mm Hg (80.0-90.0) H 09/21/20 02:15 POC ABG HCO3 18.4 10/03/20 11:25 ABG HCO3 17.7 mmol/L (20.0-26.0) L 09/21/20 02:15 ABG O2 Saturation 96.8 (0-100) 10/03/20 11:25 ABG O2 Content 24.2 (0.0-44) 09/21/20 02:15 POC ABG Base Excess -4.9 10/03/20 11:25 ABG Base Excess -8.8 mmol/L (-2.0-3.0) L 09/21/20 02:15 ABG Hemoglobin 10.8 (12.0-17.5) L 10/03/20 11:25 ABG Oxyhemoglobin 96.2 (94-98) 10/03/20 11:25 ABG Carboxyhemoglobin 1.3 % (0.0-5.0) 09/21/20 02:15 ABG Methemoglobin 0.3 (0.0-1.5) 10/03/20 11:25 ABG Sodium 147.0 mmol/L (136.0-145.0) H 10/03/20 11:25 ABG Potassium 3.2 mmol/L (3.40-4.50) L 10/03/20 11:25 ABG Chloride 118.0 mmol/L (98-107) H 10/03/20 11:25 ABG Glucose 139 mg/dL (65-95) H 10/03/20 11:25 Oxyhemoglobin 97.4 % (95.0-99.0) 09/21/20 02:15 Carboxyhemoglobin 0.3 (0.5-1.5) L 10/03/20 11:25 FiO2 21 % 09/21/20 02:15 FiO2 % 35.0 10/03/20 11:25 Sodium 150 mmol/L (137-145) H 10/04/20 05:44 Potassium 3.6 mmol/L (3.6-5.0) 10/04/20 05:44 Chloride 117.2 mmol/L (98-107) H 10/04/20 05:44 Carbon Dioxide 20 mmol/L (22-30) L 10/04/20 05:44 Anion Gap 16 mmol/L 10/04/20 05:44 BUN 74 mg/dL (9-20) H 10/04/20 05:44 Creatinine 1.8 mg/dL (0.8-1.3) H 10/04/20 05:44 Estimated GFR 49 ml/min 10/04/20 05:44 BUN/Creatinine Ratio 41 % 10/04/20 05:44 Glucose 135 mg/dL (75-100) H 10/04/20 05:44 POC Glucose 120 mg/dL (70-105) H 10/04/20 05:30 Lactic Acid 1.00 mmol/L (0.7-2.0) 09/24/20 04:00 Calcium 8.7 mg/dL (8.4-10.2) 10/04/20 05:44 Phosphorus 2.50 mg/dL (2.5-4.5) D 09/27/20 04:40 Magnesium 2.30 mg/dL (1.7-2.3) 10/01/20 13:20 Total Bilirubin 0.30 mg/dL (0.1-1.2) 09/20/20 23:02 AST 59 units/L (5-40) H 09/20/20 23:02 ALT 30 units/L (7-56) 09/20/20 23:02 Alkaline Phosphatase 88 units/L (35-129) 09/20/20 23:02 Total Creatine Kinase 3606 units/L (55-170) H 09/21/20 15:54 Troponin T 1.880 ng/mL (0.00-0.029) H* D 09/21/20 04:34 Total Protein 7.0 g/dL (6.3-8.2) 09/20/20 23:02 Albumin 4.1 g/dL (3.9-5) 09/20/20 23:02 Albumin/Globulin Ratio 1.4 % 09/20/20 23:02 Triglycerides 43 mg/dL (2-149) 09/21/20 02:01 Cholesterol 152 mg/dL (50-199) 09/21/20 02:01 LDL Cholesterol Direct 92 mg/dL (50-130) 09/21/20 02:01 HDL Cholesterol 60 mg/dL (40-59) H 09/21/20 02:01 Cholesterol/HDL Ratio 2.53 % 09/21/20 02:01 Arterial Blood Glucose 139 mg/dL (65-95) H 10/03/20 11:25 Arterial Blood Ionized Calcium 4.9 mg/dL (4.6-5.3) 10/03/20 11:25 Urine Color Yellow (Yellow) 09/26/20 13:38 Urine Turbidity Turbid (Clear) 09/26/20 13:38 Urine pH 5.0 (5.0-7.0) 09/26/20 13:38 Ur Specific [place] 1.018 (1.003-1.030) 09/26/20 13:38 Urine Protein 100 mg/dl mg/dL (Negative) 09/26/20 13:38 Urine Glucose (UA) Neg mg/dL (Negative) 09/26/20 13:38 Urine Ketones Neg mg/dL (Negative) 09/26/20 13:38 Urine Blood Mod (Negative) 09/26/20 13:38 Urine Nitrite Neg (Negative) 09/26/20 13:38 Urine Bilirubin Neg (Negative) 09/26/20 13:38 Urine Urobilinogen < 2.0 mg/dL (<2.0) 09/26/20 13:38 Ur Leukocyte Esterase Neg (Negative) 09/26/20 13:38 Urine WBC (Auto) 8.0 /HPF (0.0-6.0) H 09/26/20 13:38 Urine RBC (Auto) 10.0 /HPF (0.0-6.0) 09/26/20 13:38 U Epithel Cells (Auto) 2.0 /HPF (0-13.0) 09/26/20 13:38 Urine Bacteria (Auto) 2+ /HPF (Negative) 09/21/20 14:27 Uric Acid Crystals 3+ 09/26/20 13:38 Urine Mucus 1+ /HPF 09/26/20 13:38 Urine Yeast (Budding) 2+ /HPF 09/20/20 23:35 Urine Sperm Few /HPF (LINDERMAN MACHINE OPERATOR) 09/26/20 13:38 Urine Creatinine 60.4 mg/dL (0.1-20.0) H 09/21/20 14:27 Urine Sodium 108 mmol/L 09/21/20 14:27 Urine Urea Nitrogen 305 09/21/20 14:27 Nasal Screen MRSA (PCR) Positive (Negative) 09/25/20 17:55 Random Vancomycin 11.5 ug/mL (0-40.0) 10/02/20 04:47 Urine Opiates Screen Presumptive negative 09/20/20 Unknown Urine Methadone Screen Presumptive negative 09/20/20 Unknown Ur Barbiturates Screen Presumptive negative 09/20/20 Unknown Ur Phencyclidine Scrn Presumptive negative 09/20/20 Unknown Ur Amphetamines Screen Presumptive negative 09/20/20 Unknown U Benzodiazepines Scrn Presumptive negative 09/20/20 Unknown Urine Cocaine Screen Presumptive negative 09/20/20 Unknown U Marijuana (THC) Screen Presumptive positive 09/20/20 Unknown Drugs of Abuse Note Disclamer 09/20/20 Unknown Coronavirus (PCR) Negative (Negative) 09/21/20 10:13 Park/IV: Voiding Method Indwelling Catheter Active Medications - Current Medications Current Medications: Generic Name Dose Route Start Last Admin Trade Name Freq PRN Reason Stop Dose Admin Acetaminophen 650 mg 09/21/20 15:51 10/03/20 02:12 Acetaminophen 325 Mg/10.15 Ml Oral Liqd Unit Dose FEEDTUBE 650 mg Q6H PRN Administration Pain, Mild (1-3) Lipase/Protease/Amylase 1 each 09/25/20 14:22 Lipase 10,500/Protease 25,000/Amylase 43,750 (Units) Dr Greer FEEDTUBE PRN PRN For Clogged Feeding Tube Aspirin 325 mg 09/21/20 16:00 10/04/20 09:50 Aspirin 325 Mg Tab PO 325 mg QDAY PATSY Administration Atorvastatin Calcium 40 mg 09/23/20 22:00 10/03/20 21:40 Atorvastatin 40 Mg Tab PO 40 mg QHS PATSY Administration Dextrose 0 ml 09/30/20 05:37 09/30/20 05:57 Dextrose 50% In Water (25gm) 50 Ml Syringe IV 50 ml Q30MIN PRN Administration Hypoglycemia Protocol Famotidine 20 mg 09/25/20 10:00 10/04/20 09:50 Famotidine 20 Mg Tab PO 20 mg DAILY PATSY Administration Heparin Sodium (Porcine) 5,000 unit 09/21/20 22:00 10/04/20 09:50 Heparin 5,000 Unit/1 Ml Vial SUB-Q 5,000 unit Q12HR PATSY Administration Hydrophilic Ointment 1 applic 09/20/20 22:59 Lip Therapy Vaseline TP Q2HR PRN Dry Lips Vancomycin HCl 1,500 mg/ 530 mls @ 333.333 mls/hr 10/04/20 10:00 10/04/20 10:29 Sodium Chloride IV 10/05/20 11:36 333.333 mls/hr Q24H PATSY Administration Dextrose 1,000 mls @ 75 mls/hr 10/04/20 09:00 10/04/20 10:30 D5w IV 75 mls/hr DIRECT PATSY Administration Metoprolol Tartrate 50 mg 09/27/20 18:00 10/04/20 11:07 Metoprolol Tartrate 50 Mg Tab PO 50 mg Q6HR PATSY Administration Multi-Ingred Cream/Lotion/Oil/Oint 1 applic 09/20/20 22:59 Mineral Oil/Petrolatum, White Ophth Oint 3.5 Gm OU Q4HR PRN Dry Eye(s) Ondansetron HCl 4 mg 09/21/20 01:24 Ondansetron 4 Mg/2 Ml Inj IV Q8H PRN Nausea And Vomiting Scopolamine 1 each 10/04/20 13:00 Scopolamine Transdermal Patch 72 Hr TD Q3D PATSY Simple Syrup 15 ml 09/25/20 14:22 Simple Syrup 15 Ml FEEDTUBE PRN PRN Hypoglycemia Simple Syrup 30 ml 09/25/20 14:22 Simple Syrup 15 Ml FEEDTUBE PRN PRN Hypoglycemia Sodium Bicarbonate 325 mg 09/25/20 14:22 Sodium Bicarbonate 325 Mg Tab FEEDTUBE PRN PRN For Clogged Feeding Tube Sodium Chloride 10 ml 09/21/20 10:00 10/04/20 09:44 Sodium Chloride 0.9% 10 Ml Flush Syringe IV Not Given BID PATSY Sodium Chloride 10 ml 09/21/20 01:24 09/24/20 18:21 Sodium Chloride 0.9% 10 Ml Flush Syringe IV 10 ml PRN PRN Administration LINE FLUSH Nutrition/Malnutrition Assess - Dietary Evaluation Nutrition/Malnutrition Findings: Nutrition Notes Start: 09/21/20 08:17 Freq: Status: Active Protocol: Document 10/03/20 12:17 ANGELA (Rec: 10/03/20 12:21 ANGELA [id number]) Co-Sign 10/03/20 12:17 SALMA Nutrition Notes Initial or Follow up Reassessment Current Diagnosis Acute Kidney Injury, Hypertension,Heart Failure, Respiratory Failure Other Pertinent Diagnosis s/p cardiopulmonary arrest, UTI, anoxic encephalopathy with global edema Current Diet TF - Vital AF 1.2 at 65ml/hr Labs/Tests Na 147 BUN 70 Cr 2.0 Pertinent Medications Reviewed Height 6 ft Weight 102.1 kg [place] Body Weight (kg) 80.90 BMI 30.5 Weight Status Obese Subjective/Other Information F/U for TF tolerance and Na labs. Pt continues tolerating TF at goal rate with 300ml flush q4h. Na levels improving . Per chart, pt remains intubated and has been put on AND/DNR. Percent of energy/protein needs met: 100%/72% Burn Absent Trauma Absent GI Symptoms None Current % PO Negligible Minimum of two criteria No physical signs of malnutrition #1 Nutrition Diagnosis Inadequate oral intake Diagnosis Progress(for reassessment Continues documentation) Is patient on ventilator? Yes Is Patient Ambulatory and/or Out of Bed No REE-([facility]-confined to bed) 2318.184 Kcal/Kg value to use for calculation 18 Approximate Energy Requirements Using 1838 kcal/Kg Calculation Used for Recommendations Kcal/kg Additional Notes Pro needs >2g/kg IBW: >162g/ day Fluid needs 1ml/kcal Nutrition Intervention Change Diet Order: Continue TF Nutrition Support: Vital AF 1.2 at 65ml/hr with 300ml water flush q4h until hypernatremia resolves. Once hypernatremia resolves, continue free water flush of 100 ml q4h. [ End ] [ End ] Kcal 1,872 Protein (gm) 117 Fluid (mL) 1,265 Goal #1 TF tolerance Goal #2 TF to meet at least 75% of estimated energy and protein needs. Anticipated Discharge Needs: Unable to determine at the time. Follow-Up By: 10/06/20 Additional Comments F/U for TF tolerance and water flush
[2020-10-04] MEDS ORDERED: SCOPOLAMINE TRANSDERMAL PATCH 72 HR TD SCH (13:00)
--- NOTE | 2020-10-04 13:09 | Progress Note ---
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 Urine creatinine low signalling some ATN Creatinine trending down, has good UOP, no acute HD indication right now. Sodium level 150- On D5W@ 75 ml/hr. On free water intake 300 ml every 4 hours Check sodium level every 8 hours Renal US-No hydronephrosis. Has PCKD. No indication for HD Renally dose medications Strict I&O's daily Monitor closely Pt extuabted this morning Family deciding on care goals Plan of care reviewed with Dr. Tee Subjective Date of service: 10/04/20 Principal diagnosis: Acute respiratory failure Interval history: Patient seen lying in bed. Extubated. Unresponsive. Objective - Vital Signs Vital signs: Vital Signs - 12hr 10/04/20 10/04/20 10/04/20 00:30 00:56 01:00 Temperature Pulse Rate 85 85 86 Pulse Rate [ From Monitor] Respiratory Rate Blood Pressure 97/64 97/64 97/64 O2 Sat by Pulse 93 95 Oximetry 10/04/20 10/04/20 10/04/20 01:30 02:00 02:31 Temperature Pulse Rate 89 87 91 H Pulse Rate [ From Monitor] Respiratory Rate Blood Pressure 105/62 107/65 107/65 O2 Sat by Pulse 95 95 94 Oximetry 10/04/20 10/04/20 10/04/20 03:00 03:31 04:00 Temperature 98.4 F Pulse Rate 91 H 88 90 Pulse Rate [ 77 From Monitor] Respiratory 29 H Rate Blood Pressure 105/61 105/61 119/69 O2 Sat by Pulse 95 95 94 Oximetry 10/04/20 10/04/20 10/04/20 04:31 05:00 05:31 Temperature Pulse Rate 82 77 74 Pulse Rate [ From Monitor] Respiratory 27 H 26 H 26 H Rate Blood Pressure 119/69 104/60 104/60 O2 Sat by Pulse 96 97 96 Oximetry 10/04/20 10/04/20 10/04/20 05:58 06:00 06:31 Temperature Pulse Rate 74 74 76 Pulse Rate [ From Monitor] Respiratory 26 H 26 H Rate Blood Pressure 104/60 99/51 99/51 O2 Sat by Pulse 96 96 Oximetry 10/04/20 10/04/20 10/04/20 07:00 07:24 07:31 Temperature 98.5 F Pulse Rate 77 80 Pulse Rate [ From Monitor] Respiratory 26 H Rate Blood Pressure 107/59 107/59 O2 Sat by Pulse 97 96 Oximetry 10/04/20 10/04/20 10/04/20 08:00 08:29 08:31 Temperature Pulse Rate 82 79 79 Pulse Rate [ 82 From Monitor] Respiratory 28 H Rate Blood Pressure 115/68 115/68 115/68 O2 Sat by Pulse 94 98 98 Oximetry 10/04/20 10/04/20 10/04/20 09:00 09:31 10:00 Temperature Pulse Rate 85 86 84 Pulse Rate [ From Monitor] Respiratory Rate Blood Pressure 104/67 104/67 105/65 O2 Sat by Pulse 94 93 94 Oximetry 10/04/20 10/04/20 10/04/20 10:31 11:00 11:07 Temperature Pulse Rate 79 78 78 Pulse Rate [ From Monitor] Respiratory 25 H 23 Rate Blood Pressure 105/65 96/61 96/61 O2 Sat by Pulse 95 96 Oximetry 10/04/20 10/04/20 10/04/20 11:25 11:31 12:00 Temperature Pulse Rate 78 77 Pulse Rate [ From Monitor] Respiratory 22 24 Rate Blood Pressure 96/61 104/68 O2 Sat by Pulse 91 89 91 Oximetry 10/04/20 12:18 Temperature Pulse Rate Pulse Rate [ From Monitor] Respiratory Rate Blood Pressure O2 Sat by Pulse 92 Oximetry - General Appearance General appearance: other (No acute distress) Respiratory: Present: Decreased Breath Sounds Cardiology: S1S2 Integumentary: warm and dry Neurologic: other (unresponsive) Musculoskeletal: other (No edema) - Lab 10/04/20 05:44 10/04/20 05:44 Most recent lab results ABG pH 7.425 (7.320-7.450) 10/03/20 11:25 ABG pCO2 40.5 mm Hg 09/21/20 02:15 ABG pO2 244.1 mm Hg (80.0-90.0) H 09/21/20 02:15 ABG HCO3 17.7 mmol/L (20.0-26.0) L 09/21/20 02:15 ABG O2 Saturation 96.8 (0-100) 10/03/20 11:25 Calcium 8.7 mg/dL (8.4-10.2) 10/04/20 05:44 Phosphorus 2.50 mg/dL (2.5-4.5) D 09/27/20 04:40 Magnesium 2.30 mg/dL (1.7-2.3) 10/01/20 13:20 Urine Creatinine 60.4 mg/dL (0.1-20.0) H 09/21/20 14:27 Urine Sodium 108 mmol/L 09/21/20 14:27 Medications & Allergies - Medications Allergies/Adverse Reactions: Allergies No Known Allergies Allergy (Unverified 09/20/20 23:08) Home Medications: Home Medications Medication Instructions Recorded Confirmed Last Taken Type Furosemide [Lasix] 40 mg PO QDAY 09/21/20 09/21/20 Unknown History Simvastatin 20 mg PO QDAY 09/21/20 09/21/20 Unknown History amLODIPine [Norvasc] 5 mg PO DAILY 09/21/20 09/21/20 Unknown History carvediloL [Coreg] 25 mg PO BID 09/21/20 09/21/20 Unknown History lisinopriL [Zestril TAB] 40 mg PO QDAY 09/21/20 09/21/20 Unknown History Active Medications: Generic Name Dose Route Start Last Admin Trade Name Freq PRN Reason Stop Dose Admin Acetaminophen 650 mg 09/21/20 15:51 10/03/20 02:12 Acetaminophen 325 Mg/10.15 Ml Oral Liqd Unit Dose FEEDTUBE 650 mg Q6H PRN Administration Pain, Mild (1-3) Lipase/Protease/Amylase 1 each 09/25/20 14:22 Lipase 10,500/Protease 25,000/Amylase 43,750 (Units) Dr Greer FEEDTUBE PRN PRN For Clogged Feeding Tube Aspirin 325 mg 09/21/20 16:00 10/04/20 09:50 Aspirin 325 Mg Tab PO 325 mg QDAY PATSY Administration Atorvastatin Calcium 40 mg 09/23/20 22:00 10/03/20 21:40 Atorvastatin 40 Mg Tab PO 40 mg QHS PATSY Administration Dextrose 0 ml 09/30/20 05:37 09/30/20 05:57 Dextrose 50% In Water (25gm) 50 Ml Syringe IV 50 ml Q30MIN PRN Administration Hypoglycemia Protocol Famotidine 20 mg 09/25/20 10:00 10/04/20 09:50 Famotidine 20 Mg Tab PO 20 mg DAILY PATSY Administration Heparin Sodium (Porcine) 5,000 unit 09/21/20 22:00 10/04/20 09:50 Heparin 5,000 Unit/1 Ml Vial SUB-Q 5,000 unit Q12HR PATSY Administration Hydrophilic Ointment 1 applic 09/20/20 22:59 Lip Therapy Vaseline TP Q2HR PRN Dry Lips Vancomycin HCl 1,500 mg/ 530 mls @ 333.333 mls/hr 10/04/20 10:00 10/04/20 10:29 Sodium Chloride IV 10/05/20 11:36 333.333 mls/hr Q24H PATSY Administration Dextrose 1,000 mls @ 75 mls/hr 10/04/20 09:00 10/04/20 10:30 D5w IV 75 mls/hr DIRECT PATSY Administration Metoprolol Tartrate 50 mg 09/27/20 18:00 10/04/20 11:07 Metoprolol Tartrate 50 Mg Tab PO 50 mg Q6HR PATSY Administration Multi-Ingred Cream/Lotion/Oil/Oint 1 applic 09/20/20 22:59 Mineral Oil/Petrolatum, White Ophth Oint 3.5 Gm OU Q4HR PRN Dry Eye(s) Ondansetron HCl 4 mg 09/21/20 01:24 Ondansetron 4 Mg/2 Ml Inj IV Q8H PRN Nausea And Vomiting Scopolamine 1 each 10/04/20 13:00 Scopolamine Transdermal Patch 72 Hr TD Q3D PATSY Simple Syrup 15 ml 09/25/20 14:22 Simple Syrup 15 Ml FEEDTUBE PRN PRN Hypoglycemia Simple Syrup 30 ml 09/25/20 14:22 Simple Syrup 15 Ml FEEDTUBE PRN PRN Hypoglycemia Sodium Bicarbonate 325 mg 09/25/20 14:22 Sodium Bicarbonate 325 Mg Tab FEEDTUBE PRN PRN For Clogged Feeding Tube Sodium Chloride 10 ml 09/21/20 10:00 10/04/20 09:44 Sodium Chloride 0.9% 10 Ml Flush Syringe IV Not Given BID PATSY Sodium Chloride 10 ml 09/21/20 01:24 09/24/20 18:21 Sodium Chloride 0.9% 10 Ml Flush Syringe IV 10 ml PRN PRN Administration LINE FLUSH
--- NOTE | 2020-10-04 15:06 | XRay Report ---
ABDOMEN 1 VIEW(S) INDICATION / CLINICAL INFORMATION: NGT placement. COMPARISON: None available. FINDINGS: TUBES / LINES: Nasogastric tube terminates in the mid to distal stomach. BOWEL GAS PATTERN: No significant abnormality. FREE AIR / EXTRALUMINAL GAS: None seen. ADDITIONAL FINDINGS: No significant additional findings. IMPRESSION: The nasogastric tube terminates in the mid to distal stomach. No acute abdominal process is appreciat ed. Signer Name: Robles Panchal Jr, MD Signed: 10/04/2020 3:01 PM Workstation Name: [id number]
[2020-10-04 15:32] VITALS: BP 96/75
--- NOTE | 2020-10-04 16:58 | Death Summary ---
Summary - Providers Date of service: 10/04/20 Consults: 09/20/20 23:00 Consult to Dietitian/Nutrition [CONS] Routine Physician Instructions: Reason For Exam: Reason for Consult: Evaluate nutritional intake 09/21/20 01:24 Consult to Dietitian/Nutrition [CONS] Routine Physician Instructions: Reason For Exam: Reason for Consult: Diet education Consult to Physician [CONS] Routine Comment: Spoke with Dr. Thomason @ 0200 Consulting Provider: REINALDO THOMASON Physician Instructions: Reason For Exam: Cardiac Arrest, Hypotension 09/21/20 04:42 Consult to Physician [CONS] Routine Comment: Consulting Provider: LISA OLSON Physician Instructions: Reason For Exam: JAMEY 09/21/20 06:17 Consult to Cardiology [CONS] Routine Consulting Provider: LOU SOLOMON Reason For Exam: Cardiac arrest, elevated troponin 09/21/20 09:35 Consult to Physician [CONS] Routine Comment: Consulting Provider: REINALDO THOMASON Physician Instructions: Reason For Exam: critical care 09/21/20 15:52 Consult to Dietitian/Nutrition [CONS] Routine Physician Instructions: Reason For Exam: Reason for Consult: Write/Manage Tube Feeding 09/22/20 09:27 Consult to PICC Line RN [CONS] Routine Reason For Exam: need for vasopressor Type Line:: PICC 09/22/20 11:07 Consult to Physician [CONS] Routine Comment: Consulting Provider: RUDDY SIDHU Physician Instructions: Reason For Exam: s/p cardiac arrest 09/23/20 07:53 Occupational Therapy Evaluate and Treat [CONS] Routine Comment: Reason For Exam: Neuro deficits Physical Therapy Evaluation and Treat [CONS] Routine Comment: Reason For Exam: Neuro deficits 09/25/20 13:25 Consult to Physician [CONS] Routine Comment: Consulting Provider: EDWARD BARGER Physician Instructions: Reason For Exam: sepsis 09/25/20 13:27 Consult to Physician [CONS] Routine Comment: left. mess./ mariam Consulting Provider: ROSA M LIGHT II Physician Instructions: Reason For Exam: cerebral edema 09/28/20 14:12 Consult to Physician [CONS] Routine Comment: Consulting Provider: CALROS EDUARDO LYMAN Physician Instructions: Reason For Exam: AMS, PROGNOSCATION Attending: DIVYA LOW MD - summary Date of admission: 09/21/20 01:15 Date of : 10/04/20 Reason for admission: s/p cardiac arrest Significant findings: This is a 50-year-old male with heart failure and hypertension who presents to the emergency department on 09/21 with cardiac arrest after syncopal episode about 45 minutes prior to arrival to the emergency department. Upon arrival to the emergency department patient was found to be hypotensive and subsequently started on pressors with significant improvement in his blood pressure. Work-up in the emergency department reveals lactic acidosis, initial troponin within normal limits however subsequent troponins were elevated, no obvious ischemic changes on EKG, UDS positive for marijuana, urinalysis significant for urinary tract infection, BUN/creatinine slightly elevated 26/21. CXR showed severe cardiomegaly with mild interstitial pulmonary edema. Patient was admitted to the hospital service with consults to CCM, cardiology and nephrology s/p cardiac arrest, UTI, JAMEY, lactic acidosis and hypotension. On 09/22 patient's femoral CVL and Park catheter were removed, PICC line obtained and tube feeding was started. Patient had a T-max of one 1.9. CT head was obtained which showed diffuse cerebral edema and new suspected developing infarct in the right occipital region, patient had worsening renal function hyperphosphatemia. Neurology was consulted for CVA work-up and nephrology was consulted due to worsening renal function. On 09/24 patient Park catheter had to be replaced due to retention. On 09/25 patient was still having fevers and was started on empiric antibiotics and cultured MRI brain was concerning for anoxic encephalopathy with global edema. Patient developed severe hypernatremia. Neurosurgery and infectious disease were consulted and he was started on free water flushes per nephrology. On 09/26 patient antibiotics were changed due to possible source for sepsis thought to be urinary tract infection CXR was showed no evidence of consolidation. MRSA PCR pending and his cefepime was renally adjusted. Patient's family decided to make him a DNR. On 09/27 antibiotics were changed by infectious disease from vancomycin to linezolid. On 10/03 patient had worsening hyponatremia and we continued D5W infusion and free water pressures were increased to 300 mL every 4 hours. On 09/29 patient had worsening hyponatremia and IV fluids were adjusted by nephrology. Patient continued to have fevers despite antibiotics. On 09/30 sodium remained to be elevated despite free water flushes, D5 water. Neurosurgery was consulted and stated this all points to central recommend. Continue current management as well, decision was made. On 10/01 patient's hyponatremia seems to be improving and his D5 water drip and hydralazine were discontinued on 10/02. EEG was canceled per [facility] and patient was placed on CPAP trial. On 10/03 we obtained an ABG for possible extubation today however wish to start heparin and his hyponatremia was resolved but slowly keeping up. On 10/04 patient was extubated per [facility] transition to the floor. Given worsening hyponatremia and hyperchloremia patient started on D5W again. Unfortunately patient soon after transfer to the floor. Time of pronounced by Dr. Jameson. Mesfin was at bedside. He was unable to reach daughter. Sepsis S/p cardiac arrest Acute hypoxic respiratory failure Acute kidney injury with underlying ATN Cardiomyopathy left ejection fraction of 10 to 15% Acute toxic and anoxic metabolic encephalopathy Urinary tract infection Thrombocytopenia Acute cystitis Coagulopathic Hypernatremia MRSA VAP Hyperchloremia Metabolic acidosis Lactic acidosis Hypertension Transaminitis likely secondary to sepsis Hypertension Pertinent studies: -09/20 CXR shows cardiomegaly -09/21 echocardiogram shows severely dilated left ventricle, the ventricle systolic function severely decreased, borderline concentric left ventricle hypertrophy, severe global hypokinesis of the left ventricle, LVEF 10 to 15%, mild MR, trace TR, RVSP is normal at 12 mmHg, trace pericardial effusion. -Renal ultrasound shows enlarged echogenic kidneys containing multiple cysts bilaterally findings consistent restrict of APKD with medical renal disease and no evidence of hydronephrosis -09/21 FENa calculated at 3.14 indicating ATN -09/21 CT head shows motion degradation of the image quality despite repeat imaging. However, there appears to be mild cerebral white matter disease as described without CT evidence of acute intracranial hemorrhage. -09/22 CT head shows loss of reyna to white differentiation diffusely likely due to diffuse cerebral edema, interval decrease in ventricular size diffusely likely due to compression without herniation identified, suspected developing infarct in right occipital region without hemorrhage -09/23 bilateral carotid ultrasound shows less than 50% diameter stenosis in Right ICA and Left ICA -09/25 MRI brain shows diffuse cerebral cortical restricted diffusion and edema indicative of diffuse cerebral edema likely due to global anoxic brain injury -09/25 MRA head shows diffuse cerebral cortical restricted diffusion and edema indicative of diffuse cerebral edema likely due to global anoxic brain injury -09/28 CXR shows right pulmonary opacities in the right upper lung. Unchanged - Final diagnosis (1) Sepsis Note: Final diagnosis: (2) CVA (cerebral vascular accident) Note: Final diagnosis: (3) Acute anoxic encephalopathy Note: Final diagnosis: (4) Acute respiratory failure Note: Final diagnosis: (5) Cardiac arrest Note: Final diagnosis: (6) Hypernatremia Note: Final diagnosis: (7) UTI (urinary tract infection) Qualifiers: Urinary tract infection type: acute cystitis Hematuria presence: with hematuria Qualified Code(s): N30.01 - Acute cystitis with hematuria Note: Final diagnosis:
--- NOTE | 2020-10-09 09:02 | Progress Note ---
Assessment and Plan Assessment and plan: This is a 50-year-old male with heart failure and hypertension who presents to the emergency department on 09/21 with cardiac arrest after syncopal episode about 45 minutes prior to arrival to the emergency department. Upon arrival to the emergency department patient was found to be hypotensive and subsequently started on pressors with significant improvement in his blood pressure. Work-up in the emergency department reveals lactic acidosis, initial troponin within normal limits however subsequent troponins were elevated, no obvious ischemic changes on EKG, UDS positive for marijuana, urinalysis significant for urinary tract infection, BUN/creatinine slightly elevated 26/21. CXR showed severe ca rdiomegaly with mild interstitial pulmonary edema. Patient was admitted to the hospital service with consults to CCM, cardiology and nephrology s/p cardiac arrest, UTI, JAMEY, lactic acidosis and hypotension. MRI reviewed concerning for anoxic encephalopathy -CCM, cardiology, nephrology consulted, appreciate recommendations -s/p vasopressor support with Levophed, phenyl epinephrine, epinephrine -COVID 19 pcr (-) -Fentayl gtt -TF -09/20 CXR shows cardiomegaly -09/21 echocardiogram shows severely dilated left ventricle, the ventricle systolic function severely decreased, borderline concentric left ventricle hypertrophy, severe global hypokinesis of the left ventricle, LVEF 10 to 15%, mild MR, trace TR, RVSP is normal at 12 mmHg, trace pericardial effusion. -Accu-Cheks every 6 hours, SSI -Renal ultrasound pending -09/21 FENa calculated at 3.14 indicating ATN -09/21 CT head shows motion degradation of the image quality despite repeat imaging. However, there appears to be mild cerebral white matter disease as described without CT evidence of acute intracranial hemorrhage. -09/23 CT head shows loss of reyna-white differentiation diffusely likely due to diffuse cerebral edema, interval decrease in ventricular size size diffusely likely due to compression however no herniation identified, suspect developing infarct in the right occipital region without hemorrhage. Evaluation limited by artifact -09/23 MRI brain without contrast pending -09/23 MRA/MRV head without contrast pending -09/23 Bilateral carotid ultrasound pending -Hemoglobin A1c, hepatic panel pending -Trend CBC, BMP 09/22: Patient was started on a fentanyl drip and propofol drip was increased. At the time of my examination patient is on CMV tidal and 450, rate 20, PEEP 6 and FiO2 25%. Patient had a T-max of 101.9 overnight. Today we removed [place] catheter and femoral CVL. Plan to obtain PICC/PIV. Started TF today. 09/23: CT head obtained yesterday shows diffuse cerebral edema and a new suspected developing infarct in the right occipital region. Patient has worsening renal function today and hyperphosphatemia. The time of my examination patient was on CMV tidal 450, rate 20, PEEP 625% FiO2 and sedated on fentanyl at 2 mcg. CCM to update family on the findings. CVA work-up ordered. Renal function worsened today. 09/24: Patient has hyponatremia, hypochloremia, metabolic acidosis, slightly improved renal function. CCM discussion with family today regarding prognosis. Remains sedated on fentanyl CMV TV 450, R 20, PEEP 6, FiO2 25%. Park was replaced for retention. 09/25: Mr. Avelar unfortunately remains unresponsive no pupillary reflex appreciated. Still with fever. Start empiric antibiotics and obtain cultures. Although fever could be central. Continue ventilatory support. MRI is concerning for anoxic encephalopathy with global edema. Patient with severe hypernatremia. Will obtain neurosurgery evaluation and also ID evaluation. Free water has been started by nephrology. Cardiology input appreciated. 09/26. No indication for head CT at this time as renal is improving per supervisor receiving and processing. ID input appreciated likely underlying sepsis. Antibiotics as recommended source felt to be secondary to UTI as chest x-ray is without evidence of consolidation. Repeat chest x-ray and urine analysis is pending work cultures are being followed. MRSA PCR is also pending. Patient not on vancomycin and cefepime renally adjusted. I had extensive discussion with the daughter and the father yesterday. Later in the day the patient was made a DNR. Advance care planning time 35 minutes 09/27: Antibiotics changes per ID. Vancomycin discontinued started on linezolid. Continue current management. Patient unfortunately still with profound encephalopathy. Monitor cultures. 09/28: Worsening Hypernatremia 161, Very poor prognosis, Pt with persistent hypernatremia, per neursurgery note no ICP, cont gentle D5W, can be increased by ICU team if needed PER Nephrogy Continue free water 300 ml via orogastric tube q 4 hrs for hypernatremia. Obtain NEUROLOGY EVAL Family made aware of clinical status EEG and Neurology consultation for prognostication 5/14: Worsening sodium level, Nephrology monitoring. fluid adjusted by Nephrology. Patient off sedation, fever persists despite antibitotics, awaiting family decision on hospice. Nurology evaluating 09/30: Despite antibiotics fever still persist. Sodium still elevated despite being on fluid replacement with free water. This all points to central catastrophic event as reflected by neurosurgery. We will continue current management while awaiting family decision. Unfortunate case for young man status. Will check a.m. labs. Will obtain CBC in a.m.. Continue pressure wound prevention techniques per SRGA protocol 10/01: Sodium improving with adjusted fluids. Continue supportive care. 10/02: Late entry. sodium continues to improve, down to 148, still unresponsive, poor prognosis S/p cardiac arrest Acute hypoxic respiratory failure Acute toxic and anoxic metabolic encephalopathy Acute kidney injury with underlying ATN Sepsis Cardiomyopathy left ejection fraction of 10 to 15% Acute cystitis Leukocytosis Hypernatremia- Persistent Coagulopathic Transaminitis likely secondary to sepsis Hyperchloremia Metabolic acidosis Lactic acidosis Hypertension Prognosis is poor GI/DVT prophylaxis: PPI, heparin subcu, SCDs to bilateral lower extremities while in bed Disposition: ICU The high probability of a clinically significant, sudden or life threatening deterioration of the [multi] system(s) required my full and direct attention, intervention and personal management. The aggregate critical care time was [35] minutes. This time is in addition to time spent performing reported procedures but includes the following: [x] Data Review and interpretation [x] Patient assessment and monitoring of vital signs [x] Documentation [x] Medication orders and management History Interval history: Patient seen and examined nonresponsive, remains on the vent. Still with low grade fever Hospitalist Physical - Physical exam Narrative exam: General appearance: Present: other (Unresponsive, on the vent) - EENT Eyes: Absent: PERRL ENT: clear oral mucosa - Neck Neck: Absent: masses or JVD, cervical LAD - Respiratory Respiratory effort: normal Respiratory: bilateral: CTA - Cardiovascular Rhythm: regular Heart Sounds: Present: S1 & S2. Tachycardia absent: systolic murmur, diastolic murmur - Extremities Extremities: no ischemia, pulses intact, pulses symmetrical, No edema, normal color Peripheral Pulses: within normal limits - Abdominal General gastrointestinal: soft, non-tender, non-distended, normal bowel sounds - Integumentary Integumentary: Present: warm, dry - Neurologic Neurologic: other (no response to painful stimuli, no cough/gag reflex) - Allied Health Allied health notes reviewed: nursing, RT - Constitutional Vitals: Temp Pulse Resp BP Pulse Ox 98.9 F 89 27 H 96/75 79 L 10/04/20 12:00 10/04/20 15:01 10/04/20 15:01 10/04/20 15:01 10/04/20 15:01 General appearance: Present: no acute distress, other (unresponsive to verbal or painful stimuli) HEART Score - HEART Score Troponin: Troponin T 1.880 ng/mL (0.00-0.029) H* D 09/21/20 04:34 Results - Labs CBC & Chem 7: 10/04/20 05:44 10/04/20 05:44 Labs: Laboratory Last Values WBC 7.6 K/mm3 (4.5-11.0) 10/04/20 05:44 RBC 3.27 M/mm3 (3.65-5.03) L 10/04/20 05:44 Hgb 10.2 gm/dl (11.8-15.2) L 10/04/20 05:44 Hct 30.2 % (35.5-45.6) L 10/04/20 05:44 MCV 93 fl (84-94) 10/04/20 05:44 MCH 31 pg (28-32) 10/04/20 05:44 MCHC 34 % (32-34) 10/04/20 05:44 RDW 14.7 % (13.2-15.2) 10/04/20 05:44 Plt Count 133 K/mm3 (140-440) L 10/04/20 05:44 Lymph % (Auto) 6.6 % (13.4-35.0) L 09/28/20 04:29 [place] % (Auto) 6.5 % (0.0-7.3) 09/28/20 04:29 Eos % (Auto) 0.1 % (0.0-4.3) 09/28/20 04:29 Baso % (Auto) 0.3 % (0.0-1.8) 09/28/20 04:29 Lymph # (Auto) 1.1 K/mm3 (1.2-5.4) L 09/28/20 04:29 [place] # (Auto) 1.1 K/mm3 (0.0-0.8) H 09/28/20 04:29 Eos # (Auto) 0.0 K/mm3 (0.0-0.4) 09/28/20 04: Baso # (Auto) 0.0 K/mm3 (0.0-0.1) 09/28/20 04:29 Add Manual Diff Complete 09/20/20 23:02 Total Counted 100 09/20/20 23:02 Seg Neutrophils % 86.5 % (40.0-70.0) H 09/28/20 04:29 Seg Neuts % (Manual) 34.0 % (40.0-70.0) L 09/20/20 23:02 Lymphocytes % (Manual) 57.0 % (13.4-35.0) H 09/20/20 23:02 Monocytes % (Manual) 6.0 % (0.0-7.3) 09/20/20 23:02 Eosinophils % (Manual) 2.0 % (0.0-4.3) 09/20/20 23:02 Basophils % (Manual) 1.0 % (0.0-1.8) 09/20/20 23:02 Nucleated RBC % Not Reportable 09/20/20 23:02 Seg Neutrophils # 14.4 K/mm3 (1.8-7.7) H 09/28/20 04:29 Seg Neutrophils # Man 1.9 K/mm3 (1.8-7.7) 09/20/20 23:02 Band Neutrophils # 0.0 K/mm3 09/20/20 23:02 Lymphocytes # (Manual) 3.2 K/mm3 (1.2-5.4) 09/20/20 23:02 Abs React Lymphs (Man) 0.0 K/mm3 09/20/20 23:02 Monocytes # (Manual) 0.3 K/mm3 (0.0-0.8) 09/20/20 23:02 Eosinophils # (Manual) 0.1 K/mm3 (0.0-0.4) 09/20/20 23:02 Basophils # (Manual) 0.1 K/mm3 (0.0-0.1) 09/20/20 23:02 Metamyelocytes # 0.0 K/mm3 09/20/20 23:02 Myelocytes # 0.0 K/mm3 09/20/20 23:02 Promyelocytes # 0.0 K/mm3 09/20/20 23:02 Blast Cells # 0.0 K/mm3 09/20/20 23:02 WBC Morphology Not Reportable 09/20/20 23:02 Hypersegmented Neuts Not Reportable 09/20/20 23:02 Hyposegmented Neuts Not Reportable 09/20/20 23:02 Hypogranular Neuts Not Reportable 09/20/20 23:02 Smudge Cells Not Reportable 09/20/20 23:02 Toxic Granulation Not Reportable 09/20/20 23:02 Toxic Vacuolation Not Reportable 09/20/20 23:02 Dohle Bodies Not Reportable 09/20/20 23:02 Pelger-Huet Anomaly Not Reportable 09/20/20 23:02 Santosh Rods Not Reportable 09/20/20 23:02 Platelet Estimate Not Reportable 09/20/20 23:02 Clumped Platelets Not Reportable 09/20/20 23:02 Plt Clumps, EDTA Not Reportable 09/20/20 23:02 Large Platelets Not Reportable 09/20/20 23:02 Giant Platelets Not Reportable 09/20/20 23:02 Platelet Satelliting Not Reportable 09/20/20 23:02 Plt Morphology Comment Not Reportable 09/20/20 23:02 RBC Morphology Normal 09/20/20 23:02 Dimorphic RBCs Not Reportable 09/20/20 23:02 Polychromasia Not Reportable 09/20/20 23:02 Hypochromasia Not Reportable 09/20/20 23:02 Poikilocytosis Not Reportable 09/20/20 23:02 Anisocytosis Not Reportable 09/20/20 23:02 Microcytosis Not Reportable 09/20/20 23:02 Macrocytosis Not Reportable 09/20/20 23:02 Spherocytes Not Reportable 09/20/20 23:02 Pappenheimer Bodies Not Reportable 09/20/20 23:02 Sickle Cells Not Reportable 09/20/20 23:02 Target Cells Not Reportable 09/20/20 23:02 Tear Drop Cells Not Reportable 09/20/20 23:02 Ovalocytes Not Reportable 09/20/20 23:02 Helmet Cells Not Reportable 09/20/20 23:02 [place] Bodies Not Reportable 09/20/20 23:02 [place] Rings Not Reportable 09/20/20 23:02 Melly Cells Not Reportable 09/20/20 23:02 Bite Cells Not Reportable 09/20/20 23:02 Crenated Cell Not Reportable 09/20/20 23:02 Elliptocytes Not Reportable 09/20/20 23:02 Acanthocytes (Spur) Not Reportable 09/20/20 23:02 Rouleaux Not Reportable 09/20/20 23:02 Hemoglobin C Crystals Not Reportable 09/20/20 23:02 Schistocytes Not Reportable 09/20/20 23:02 Malaria parasites Not Reportable 09/20/20 23:02 Eduardo Bodies Not Reportable 09/20/20 23:02 Hem Pathologist Commnt No 09/20/20 23:02 PT 15.5 Sec. (12.2-14.9) H 09/22/20 08:26 INR 1.25 (0.87-1.13) H 09/22/20 08:26 APTT 30.6 Sec. (24.2-36.6) 09/21/20 10:08 ABG pH 7.425 (7.320-7.450) 10/03/20 11:25 POC ABG pCO2 28.7 mmHg (32.0-48.0) L 10/03/20 11:25 ABG pCO2 40.5 mm Hg 09/21/20 02:15 POC ABG pO2 91.3 mmHg (83-108) 10/03/20 11:25 ABG pO2 244.1 mm Hg (80.0-90.0) H 09/21/20 02:15 POC ABG HCO3 18.4 10/03/20 11:25 ABG HCO3 17.7 mmol/L (20.0-26.0) L 09/21/20 02:15 ABG O2 Saturation 96.8 (0-100) 10/03/20 11:25 ABG O2 Content 24.2 (0.0-44) 09/21/20 02:15 POC ABG Base Excess -4.9 10/03/20 11:25 ABG Base Excess -8.8 mmol/L (-2.0-3.0) L 09/21/20 02:15 ABG Hemoglobin 10.8 (12.0-17.5) L 10/03/20 11:25 ABG Oxyhemoglobin 96.2 (94-98) 10/03/20 11:25 ABG Carboxyhemoglobin 1.3 % (0.0-5.0) 09/21/20 02:15 ABG Methemoglobin 0.3 (0.0-1.5) 10/03/20 11:25 ABG Sodium 147.0 mmol/L (136.0-145.0) H 10/03/20 11:25 ABG Potassium 3.2 mmol/L (3.40-4.50) L 10/03/20 11:25 ABG Chloride 118.0 mmol/L (98-107) H 10/03/20 11:25 ABG Glucose 139 mg/dL (65-95) H 10/03/20 11:25 Oxyhemoglobin 97.4 % (95.0-99.0) 09/21/20 02:15 Carboxyhemoglobin 0.3 (0.5-1.5) L 10/03/20 11:25 FiO2 21 % 09/21/20 02:15 FiO2 % 35.0 10/03/20 11:25 Sodium 150 mmol/L (137-145) H 10/04/20 05:44 Potassium 3.6 mmol/L (3.6-5.0) 10/04/20 05:44 Chloride 117.2 mmol/L (98-107) H 10/04/20 05:44 Carbon Dioxide 20 mmol/L (22-30) L 10/04/20 05:44 Anion Gap 16 mmol/L 10/04/20 05:44 BUN 74 mg/dL (9-20) H 10/04/20 05:44 Creatinine 1.8 mg/dL (0.8-1.3) H 10/04/20 05:44 Estimated GFR 49 ml/min 10/04/20 05:44 BUN/Creatinine Ratio 41 % 10/04/20 05:44 Glucose 135 mg/dL (75-100) H 10/04/20 05:44 POC Glucose 109 mg/dL (70-105) H 10/04/20 11:48 Lactic Acid 1.00 mmol/L (0.7-2.0) 09/24/20 04:00 Calcium 8.7 mg/dL (8.4-10.2) 10/04/20 05:44 Phosphorus 2.50 mg/dL (2.5-4.5) D 09/27/20 04:40 Magnesium 2.30 mg/dL (1.7-2.3) 10/01/20 13:20 Total Bilirubin 0.30 mg/dL (0.1-1.2) 09/20/20 23:02 AST 59 units/L (5-40) H 09/20/20 23:02 ALT 30 units/L (7-56) 09/20/20 23:02 Alkaline Phosphatase 88 units/L (35-129) 09/20/20 23:02 Total Creatine Kinase 3606 units/L (55-170) H 09/21/20 15:54 Troponin T 1.880 ng/mL (0.00-0.029) H* D 09/21/20 04:34 Total Protein 7.0 g/dL (6.3-8.2) 09/20/20 23:02 Albumin 4.1 g/dL (3.9-5) 09/20/20 23:02 Albumin/Globulin Ratio 1.4 % 09/20/20 23:02 Triglycerides 43 mg/dL (2-149) 09/21/20 02:01 Cholesterol 152 mg/dL (50-199) 09/21/20 02:01 LDL Cholesterol Direct 92 mg/dL (50-130) 09/21/20 02:01 HDL Cholesterol 60 mg/dL (40-59) H 09/21/20 02:01 Cholesterol/HDL Ratio 2.53 % 09/21/20 02:01 Arterial Blood Glucose 139 mg/dL (65-95) H 10/03/20 11:25 Arterial Blood Ionized Calcium 4.9 mg/dL (4.6-5.3) 10/03/20 11:25 Urine Color Yellow (Yellow) 09/26/20 13:38 Urine Turbidity Turbid (Clear) 09/26/20 13:38 Urine pH 5.0 (5.0-7.0) 09/26/20 13:38 Ur Specific [place] 1.018 (1.003-1.030) 09/26/20 13:38 Urine Protein 100 mg/dl mg/dL (Negative) 09/26/20 13:38 Urine Glucose (UA) Neg mg/dL (Negative) 09/26/20 13:38 Urine Ketones Neg mg/dL (Negative) 09/26/20 13:38 Urine Blood Mod (Negative) 09/26/20 13:38 Urine Nitrite Neg (Negative) 09/26/20 13:38 Urine Bilirubin Neg (Negative) 09/26/20 13:38 Urine Urobilinogen < 2.0 mg/dL (<2.0) 09/26/20 13:38 Ur Leukocyte Esterase Neg (Negative) 09/26/20 13:38 Urine WBC (Auto) 8.0 /HPF (0.0-6.0) H 09/26/20 13:38 Urine RBC (Auto) 10.0 /HPF (0.0-6.0) 09/26/20 13:38 U Epithel Cells (Auto) 2.0 /HPF (0-13.0) 09/26/20 13:38 Urine Bacteria (Auto) 2+ /HPF (Negative) 09/21/20 14:27 Uric Acid Crystals 3+ 09/26/20 13:38 Urine Mucus 1+ /HPF 09/26/20 13:38 Urine Yeast (Budding) 2+ /HPF 09/20/20 23:35 Urine Sperm Few /HPF (BARIATRIC PROGRAM COORDINATOR) 09/26/20 13:38 Urine Creatinine 60.4 mg/dL (0.1-20.0) H 09/21/20 14:27 Urine Sodium 108 mmol/L 09/21/20 14:27 Urine Urea Nitrogen 305 09/21/20 14:27 Nasal Screen MRSA (PCR) Positive (Negative) 09/25/20 17:55 Random Vancomycin 11.5 ug/mL (0-40.0) 10/02/20 04:47 Urine Opiates Screen Presumptive negative 09/20/20 Unknown Urine Methadone Screen Presumptive negative 09/20/20 Unknown Ur Barbiturates Screen Presumptive negative 09/20/20 Unknown Ur Phencyclidine Scrn Presumptive negative 09/20/20 Unknown Ur Amphetamines Screen Presumptive negative 09/20/20 Unknown U Benzodiazepines Scrn Presumptive negative 09/20/20 Unknown Urine Cocaine Screen Presumptive negative 09/20/20 Unknown U Marijuana (THC) Screen Presumptive positive 09/20/20 Unknown Drugs of Abuse Note Disclamer 09/20/20 Unknown Coronavirus (PCR) Negative (Negative) 09/21/20 10:13 [place]/IV: Voiding Method Indwelling Catheter Nutrition/Malnutrition Assess - Dietary Evaluation Nutrition/Malnutrition Findings: Nutrition Notes Start: 09/21/20 08:17 Freq: Status: Discharge Protocol: Document 10/03/20 12:17 ANGELA (Rec: 10/03/20 12:21 ANGELA [id number]) Co-Sign 10/03/20 12:17 MK Nutrition Notes Initial or Follow up Reassessment Current Diagnosis Acute Kidney Injury, Hypertension,Heart Failure, Respiratory Failure Other Pertinent Diagnosis s/p cardiopulmonary arrest, UTI, anoxic encephalopathy with global edema Current Diet TF - Vital AF 1.2 at 65ml/hr Labs/Tests Na 147 BUN 70 Cr 2.0 Pertinent Medications Reviewed Height 6 ft Weight 102.1 kg [place] Body Weight (kg) 80.90 BMI 30.5 Weight Status Obese Subjective/Other Information F/U for TF tolerance and Na labs. Pt continues tolerating TF at goal rate with 300ml flush q4h. Na levels improving . Per chart, pt remains intubated and has been put on AND/DNR. Percent of energy/protein needs met: 100%/72% Burn Absent Trauma Absent GI Symptoms None Current % PO Negligible Minimum of two criteria No physical signs of malnutrition #1 Nutrition Diagnosis Inadequate oral intake Diagnosis Progress(for reassessment Continues documentation) Is patient on ventilator? Yes Is Patient Ambulatory and/or Out of Bed No REE-([facility]-confined to bed) 2318.184 Kcal/Kg value to use for calculation 18 Approximate Energy Requirements Using 1838 kcal/Kg Calculation Used for Recommendations Kcal/kg Additional Notes Pro needs >2g/kg IBW: >162g/ day Fluid needs 1ml/kcal Nutrition Intervention Change Diet Order: Continue TF Nutrition Support: Vital AF 1.2 at 65ml/hr with 300ml water flush q4h until hypernatremia resolves. Once hypernatremia resolves, continue free water flush of 100 ml q4h. [ End ] [ End ] Kcal 1,872 Protein (gm) 117 Fluid (mL) 1,265 Goal #1 TF tolerance Goal #2 TF to meet at least 75% of estimated energy and protein needs. Anticipated Discharge Needs: Unable to determine at the time. Follow-Up By: 10/06/20 Additional Comments F/U for TF tolerance and water flush
== END 2020-10-04 16:30 | DRG 208 ==
LOC: ED 22:44 → CC1 09-21 01:15 → 3A 10-04 15:31
PROVIDERS: ADMIT Internal Medicine Geriatric Medicine; ATTEND Internal Medicine
PROC: 0BH17EZ Insertion of Endotracheal Airway into Trachea, Via Natural or Artificial Opening (ICD-10-PCS; principal; 2020-09-20)
PROC: 5A1945Z Respiratory Ventilation, 24-96 Consecutive Hours (ICD-10-PCS; 2020-09-20)
PROC: 4A033R1 Measurement of Arterial Saturation, Peripheral, Percutaneous Approach (ICD-10-PCS; 2020-09-21)
PROC: 02HV33Z Insertion of Infusion Device into Superior Vena Cava, Percutaneous Approach (ICD-10-PCS; 2020-09-22)
PROC: B548ZZA Ultrasonography of Superior Vena Cava, Guidance (ICD-10-PCS; 2020-09-22)
DX: J96.01 Acute respiratory failure with hypoxia (principal); N17.0 Acute kidney failure with tubular necrosis; G93.6 Cerebral edema; G92 Toxic encephalopathy; A41.9 Sepsis, unspecified organism; E87.2 Acidosis; E87.0 Hyperosmolality and hypernatremia; D68.9 Coagulation defect, unspecified; J95.851 Ventilator associated pneumonia; N30.01 Acute cystitis with hematuria; I50.22 Chronic systolic (congestive) heart failure; I42.0 Dilated cardiomyopathy; G93.1 Anoxic brain damage, not elsewhere classified; E87.1 Hypo-osmolality and hyponatremia; Z66 Do not resuscitate; Z20.822 Contact with and (suspected) exposure to COVID-19; I95.9 Hypotension, unspecified; I46.9 Cardiac arrest, cause unspecified; E83.39 Other disorders of phosphorus metabolism; B95.62 Methicillin resistant Staphylococcus aureus infection as the cause of diseases classified elsewhere; D72.829 Elevated white blood cell count, unspecified; E87.8 Other disorders of electrolyte and fluid balance, not elsewhere classified; I11.0 Hypertensive heart disease with heart failure; D69.6 Thrombocytopenia, unspecified; Z79.899 Other long term (current) drug therapy; Z79.891 Long term (current) use of opiate analgesic; Z79.01 Long term (current) use of anticoagulants
CPT/HCPCS: 31500; 36415; 36600; 70450; 70544; 70551; 71045; 74018; 76770; 80048; 80053; 80061; 80202; 80307; 81001; 82140; 82550; 82570; 82803; 82805; 82962; 83735; 84100; 84132; 84295; 84300; 84484; 84520; 85007; 85014; 85018; 85025; 85027; 85049; 85610; 85730; 87040; 87070; 87076; 87086; 87186; 87205; 87641; 93005; 93306; 93880; 94003; 96365; 96375; G0378; J7070; J0171; J0360; J0461; J0692; J0696; J1250; J1265; J1644; J2370; J2704; J3010; J3370; J7030; J7040; J7050; U0003